=== PATIENT | male | born 1945 | race Caucasian/White ===

== ENCOUNTER → 2017-12-10 07:29 | Outpatient (CLI) | payer MEDICARE, OTHER, SELFPAY ==
--- NOTE | 2017-12-10 07:35 | CDU_ITS ---
Reason For Study: TIA Rt. Velocities/BP Lt. Velocities/BP Prox CCA 95.0/28.7 cm/sec. Prox CCA 77.4/24.0 cm/sec. Mid CCA 110.0/31.7 cm/sec. Mid CCA 86.2/25.2 cm/sec. Dist CCA 118.0/38.7 cm/sec. Dist CCA 89.7/25.2 cm/sec. Prox ICA 88.5/32.8 cm/sec. Prox ICA 63.3/24.6 cm/sec. Mid ICA 92.6/34.6 cm/sec. Mid ICA 68.6/26.4 cm/sec. Dist ICA 93.2/34.6 cm/sec. Dist ICA 66.3/25.6 cm/sec. Rt. ICA/CCA = .85. Lt. ICA/CCA = .80. Prox ECA 120.0/34.0 cm/sec. Prox ECA 84.4/17.0 cm/sec. Rt. Vert. 61.0/18.2 cm/sec. Lt. Vert. 41.2/12.6 cm/sec. Right Extracranial There is intimal thickening but no significant atherosclerotic plaque noted in the right common carotid artery. There is heterogeneous, irregular atherosclerotic plaque noted in the right internal carotid artery. There is intimal thickening but no significant atherosclerotic plaque noted in the right external carotid artery. Antegrade flow is noted in the right vertebral artery. Left Extracranial There is intimal thickening but no significant atherosclerotic plaque noted in the left common carotid artery. There is heterogeneous, irregular atherosclerotic plaque noted in the left internal carotid artery. There is intimal thickening but no significant atherosclerotic plaque noted in the left external carotid artery. Antegrade flow is noted in the left vertebral artery. Procedure Carotid Duplex [id number]. Exam performed in department. Interpretation Summary Mild (<50%) stenosis right extracranial internal carotid. Mild (<50%) stenosis left extracranial internal carotid. Flow within the vertebral arteries is antegrade bilaterally. Ordering Physician: Casper Do Referring Physician: Casper Do Performed By: Maryjane Cummings RVT
== END ==
PROVIDERS: Family Provider Family Medicine; PCP Family Medicine; Visit Provider Family Medicine
DX: H53.123 Transient visual loss, bilateral (principal)
CPT/HCPCS: 93880

== ENCOUNTER → 2018-11-03 14:09 | Outpatient (CLI) | payer MEDICARE, OTHER, SELFPAY ==
[2018-10-16 13:01] VITALS: BMI 23.6
--- NOTE | 2018-11-03 14:12 | CT_ITS ---
STUDY: CT PELVIS WITHOUT CONTRAST REASON FOR EXAM: Male, 73 years old. Hip and lower back pain. RADIATION DOSAGE (If Supplied By Facility): CTDIvol = ( 13.03 ) mGy, DLP = ( 367.70 ) mGycm TECHNIQUE: Transaxial imaging of the pelvis was performed with oral contrast, and without intravenous administration of contrast material. Coronal and sagittal 2-D MPR Individualized dose optimization techniques were used for this CT. COMPARISON: CT lumbar spine same date. MR lumbar spine 08/22/2017. X-ray lumbar spine 12/09/2015. FINDINGS: Body wall soft tissues: No acute process. Osseous structures: Multilevel low lumbar spondylosis, see lumbar spine CT dictation. There is transitional lumbosacral vertebral anatomy. Lumbarization of S1 as counted from the last rib-bearing vertebral body T12. Osteopenia. Right hip os acetabuli, otherwise minimal degenerative features. Left hip os acetabuli, otherwise minimal degenerative features. Bony pelvis intact. Minimal degenerative features of the SI joints. Intrapelvic: Infrarenal abdominal aortic aneurysm measuring up to 3.65 cm. Moderate aortoiliac atherosclerosis. Somewhat prominent stool within the distal large bowel, nonspecific. Mild sigmoid diverticulosis without diverticulitis. Normal appendix. Observed portions of the small bowel are unremarkable. No evidence of mass or lymphadenopathy. Distal ureters, urinary bladder, prostate and seminal vesicles unremarkable. Myotendinous structures: Myotendinous structures of the pelvic girdle are unremarkable. CT/Pelvis without IV Contrast IMPRESSION: Infrarenal abdominal aortic aneurysm 3.6 cm. No acute intrapelvic process is evident. Mild degenerative features of the hip joints. Multilevel lumbar spondylosis. Electronically Signed: Zuhair Toribio MD at 14:46 EST Tel , Service support ,
--- NOTE | 2018-11-03 14:14 | CT_ITS ---
STUDY: CT LUMBAR SPINE WITHOUT CONTRAST REASON FOR EXAM: Male, 73 years old. Hip and lower back pain RADIATION DOSAGE (If Supplied By Facility): CTDIvol = ( 16.10 ) mGy, DLP = ( 407.43 ) mGycm TECHNIQUE: The patient was scanned in a multi detector CT scanner. High resolution transaxial imaging was performed. Sagittal and coronal images were reconstructed. Individualized dose optimization techniques were used for this CT. COMPARISON: MR lumbar spine 08/22/2017, x-ray lumbar spine 12/09/2015 FINDINGS: Limited evaluation of the retroperitoneum reveals no acute process. Infrarenal abdominal aortic aneurysm 3.6 cm, fusiform shape. Moderate aortoiliac atherosclerosis. Psoas and paraspinous muscles normal. Mild dextro scoliosis of the lumbar spine. There is straightening of the expected lumbar lordosis. There is generalized osteopenia. There is transitional lumbosacral vertebral anatomy. As counted from the last rib-bearing vertebral body T12, there is lumbarization of S1. Counted as such, there is mild narrowing of the intervertebral disc at L1-L2. There is severe disc narrowing with vacuum changes and endplate degenerative changes at the remaining levels L2-S1. At each level there is mild posterior disc bulging, posterior lateral disc margin osteophytic lipping, mild to moderate facet hypertrophy, features contributing to mild spinal canal narrowing at L5-S1, mild lateral recess encroachment at all levels, and mild to moderate multilevel foraminal narrowing most notable at L4-L5 and L5-S1 on the right, L4-L5 on the left. No significant change in the appearance of the lumbar spine compared to prior imaging. CT/Spine Lumbar without Contrast IMPRESSION: Prominent multilevel lumbar spondylosis contributing to multilevel foraminal narrowing and mild spinal canal narrowing. Mild scoliosis. Electronically Signed: Zuhair Toribio MD at 14:50 EST Tel , Service support ,
== END ==
PROVIDERS: Family Provider Family Medicine; PCP Family Medicine; Referring Provider Nurse Practitioner Acute Care; Visit Provider Nurse Practitioner Acute Care
DX: M54.5 Low back pain (principal); M25.559 Pain in unspecified hip
CPT/HCPCS: 72131; 72192

== ENCOUNTER → 2018-11-17 09:53 | Outpatient (CLI) | payer MEDICARE, OTHER, SELFPAY ==
[2018-10-16 13:01] VITALS: BMI 23.6
--- NOTE | 2018-11-17 09:56 | US_ITS ---
STUDY: ABDOMINAL ULTRASOUND REASON FOR EXAM: Male, 73 years old. Abdominal aortic aneurysm TECHNIQUE: Transabdominal ultrasound was performed with real-time and static garcia scale imaging. TECHNICAL QUALITY: Limited. Examination limited by bowel gas. COMPARISON: Previous study of 10/09/2016 FINDINGS: Liver: The liver measures 16.3 cm. There is normal echogenicity of the liver. The bile ducts are within normal limits. There is hepatic color flow. The direction of portal flow is hepatopetal. There is no demonstrated mass lesion. Gallbladder: Normal distended gallbladder. The gallbladder wall measures 3 mm. There is a negative sonographic Peralta's sign. There is no pericholecystic fluid. There are no gallstones. Common Bile Duct (C.B.D.): The common bile duct measures 5 mm. Pancreas: The pancreas was obscured by bowel gas. Spleen: Normal size of the spleen. The spleen measures 11.2 x 4.0 x 3.6 cm. Right Kidney: Normal size of the right kidney. The right kidney measures 10.9 x 4.2 x 4.0 cm. Normal renal cortex. The right cortex measures 1.3 cm. There is no demonstrated renal mass or cyst. There is no right hydronephrosis. Left Kidney: Normal size of the left kidney. The left kidney measures 10.4 x 5.1 x 4.9 cm. Normal renal cortex. The left cortex measures 1.4 cm. There is no demonstrated renal mass or cyst. There is no left hydronephrosis. Aorta: There is aneurysmal dilatation of the distal infrarenal abdominal aorta measuring up to 3.1 x 3.6 cm in diameter. This involves an approximately 7.0 cm in length segment of abdominal aorta. Atheromatous plaquing is noted throughout the length of aneurysm. The proximal abdominal aorta measures 2.0 x 2.5 cm in diameter. The mid abdominal aorta measures 2.3 x 2.2 cm in diameter. I.V.C.: The IVC is patent. There is no ascites. US/Abdomen Complete IMPRESSION: 1. Aneurysmal dilatation of an approximately 7.0 cm in length segment of distal infrarenal abdominal aorta, measuring up to 3.1 x 3.6 cm in diameter. This is slightly increased from the previous study. There is atheromatous plaquing throughout the length of aneurysm. 2. The pancreas was obscured by bowel gas. 3. The remainder of the study is unremarkable. Electronically Signed: Maurizio Story MD at 23:57 EST , Service support ,
== END ==
PROVIDERS: Family Provider Family Medicine; PCP Family Medicine; Referring Provider Clinical Nurse Specialist Acute Care; Visit Provider Clinical Nurse Specialist Acute Care
DX: I71.4 Abdominal aortic aneurysm, without rupture (principal)
CPT/HCPCS: 76700

== ENCOUNTER 2019-03-11 12:30 | Outpatient (RCR) | payer MEDICARE, OTHER, SELFPAY ==
[2019-01-08 11:32] VITALS: BMI 23.5
--- NOTE | 2019-02-24 15:53 | HP.PTEVAL_ITS ---
Patient's Visit Information NIKOLAS HANSON is a 73 year old M referred to Physical Therapy by MABLE Colindres with a diagnosis of PD and increase weakness. Date of Evaluation: 02/24/19 Physical Therapist: JIMMY Carpenter - Visit Plan Frequency: 2x /Week Duration: 6 Weeks Plan: 2X/ week for 4-6 weeks for LE strengthening, increasing trunk AROM, Postural exercises, gait mechanics, dual-tasking, balance activities with HEP - Subjective Findings: Dr Do diagnosed him with PF about 2.5 years ago. 2 years ago he was running. He had PD that affected his digestive system and was ok there and 1.5 years ago he had to go to ER with excessive diarherra and was there for 5 days and was on med that wacked him out and he left the hospital and got off the med and he got back to normal. She saw the neurogist recently and they said to go to PT. He lost a lot of weight and that took all his strength away. He can not walk long distances without tiring out. Stairs: he can go up and down recip. Balance: he is more cautious of it. 2 small trips ( both times he was going through a narrow spot). He feels that he is being pulled forward. He is on meds for PD and on Tramadol for pain. He drives. No trouble getting out of bed. He feels that his legs are weak at times. Pt sleeps for 4 hours at a time. He quite smoking 3-4 years ago. Pt wants to walk and maybe even start jogging a little. He wants to be able to travel now that he is retired. - Objective Gait: Walks with decreased heel to toe ( almost no DF), flexed trunk, fw head, rounded shoulders, no trunk rotation and no arm swing. FGA: 15. LE MMT: B hip flexion 4/5, B knee ext 4-/5, B knee flex 4-/5, B hip abd 4+/5, B hip ext 4- /5, Pt is able to walk on toes but struggles to walk on heels. FLexibility: tight gastroc, HS, hip flexors. Posture: sits with rounded shoulders, flexed trunk, fw head. Pt struggled a little with following directions when alternating legs and arms. - Balance Scores Functional Gait Assessment Score: 15 % Disability: 50.0000 - Goals Goal 1:: I HEP Goal Time Frame: 2-4 Weeks Goal 2:: Walk with more upright posture and increased heel to toe gait pattern Goal Time Frame: 4-6 Weeks Goal 3:: Increase LE strength by 1/2 muscle grade ( atime of eval: LE MMT: B hip flexion 4/5, B knee ext 4-/5, B knee flex 4-/5, B hip abd 4+/5, B hip ext 4- /5) - Rehabilitation Potential Rehabilitation Potential: Good - Anticipated Interventions Patient/Client Instruction: Educate patient on: Condition, Plan of Care For the Purpose of:: To improve muscle performance and motor function, To improve ability to perform ADL's, To increase tolerance to activity/condition/position, To improve performance and independence with ADL's, To improve ability of physical actions for home/community/work/leisure, To improve gait and locomotor functions, To increase flexibility/ROM, To improve balance, To improve safety with gait Therapeutic Exercise to Include: Strength training, Endurance training, Balance training, Body mechanics, Postural training, Flexibilty training, Gait and locomotor training, Neuromotor development, Active ROM For the Purpose of:: To improve muscle performance and motor function, To improve ability to perform ADL's, To increase tolerance to activity/condition/position, To improve performance and independence with ADL's, To improve gait and locomotor functions, To increase flexibility/ROM, To improve balance, To improve safety with gait Functional Training to Include: Gait training For the Purpose of:: To improve gait and locomotor functions, To improve safety with gait Thank you for the opportunity to evaluate your patient. For Medicare and Medicare HMO plans, please review the plan of care and approve it. It will need to be FAXED BACK to us at [phone] for Medicare purposes. For Medicare only, by signing this I certify the plan of care. Please let me know if there are questions or concerns regarding this plan of care. Physician Signature: Date:
== END 2019-03-11 19:00 | disposition home or self-care (01) ==
LOC: PT 12:30
PROVIDERS: Family Provider Family Medicine; PCP Family Medicine; Referring Provider Nurse Practitioner Family; Visit Provider Nurse Practitioner Family
DX: G20 Parkinson's disease (principal); R53.1 Weakness
CPT/HCPCS: 97110; 97161

== ENCOUNTER 2019-05-29 12:26 | Outpatient (RCR) | payer MEDICARE, OTHER, SELFPAY ==
[2019-01-08 11:32] VITALS: BMI 23.5
[2019-05-22 14:34] VITALS: BMI 21.9
--- NOTE | 2019-05-29 13:28 | HP.PTEVAL_ITS ---
Patient's Visit Information NIKOLAS HANSON is a 73 year old M referred to Physical Therapy by MABLE Colindres with a diagnosis of Falls, Parkinson's Disease. Date of Evaluation: 05/29/19 Physical Therapist: JIMMY Carpenter - Visit Plan Frequency: 2-3x /Week Duration: 4-6 Weeks Plan: 2-3X/ week for 4-6 weeks for core stability, trunk rotation stretching, balance activities ( dual tasking), LE strengthening, with HEP - Subjective Findings: Pt reports that he had one trip and he fell backwards and hit his head and it did not hurt. He reports another fall a ways back when he hurt his head but no stitiches needed. In process of changing his meds to increase his Sinement. He having a little more shapiness and having a hard time straightening his hands back out. The Dr is getting concerend that he is regressing. He reports no leg weakness. He reports some postural issues. He has a hard time getting his R leg up into bed. Stairs at home with a railing. He has a lift chair at home but he practices getting out of a regular chair all the time. He has pain that he takes tramadol for for pain in his neck and shoulders. PT reports tightness in his back that causes his posture to be wrong . - Objective Gait: Short strides, decreased arm swing on the R, scuffs feet on the floor, at times decrease DF. LE MMT: B hip abd 4/5, B knee flex 4-/5 and B knee ext 4-/5, B hip flex 4-/5. Tight gastroc, trunk rotation B. FGA: 18. CATSIB: 120. Pt had some poor motor planning when asked to step bw off the foam... wanted to drag his feet along the foam to get it off the foam. Sit to stand: able to stand without using his UE's but does have some retro LOB into the chair at times. TU.99 seconds - Balance Scores Functional Gait Assessment Score: 18 % Disability: 40.0000 CATSIB Score (Max score 120 seconds): 120 - Goals Goal 1:: I HEP Goal Time Frame: 4-6 Weeks Goal 2:: Increase FGA score by 3 points to decrease fall risk ( at time of eval score was 18). Goal Time Frame: 4-6 Weeks Goal 3:: Increase LE strength by 1/2 muscle grade ( at time of eval : LE MMT: B hip abd 4/5, B knee flex 4-/5 and B knee ext 4-/5, B hip flex 4-/5) Goal Time Frame: 4-6 Weeks Goal 4:: be able to sit to stand X 10 attempts in a row with no UE support and no retro LOB Goal Time Frame: 4-6 Weeks - Rehabilitation Potential Rehabilitation Potential: Good - Anticipated Interventions Patient/Client Instruction: Educate patient on: Condition, Plan of Care For the Purpose of:: To improve muscle performance and motor function, To improve ability to perform ADL's, To increase tolerance to activity/condition/position, To improve performance and independence with ADL's, To improve ability of physical actions for home/community/work/leisure, To improve gait and locomotor functions, To improve health of tissue, To increase flexibility/ROM Therapeutic Exercise to Include: Strength training, Balance training, Coordination, Body mechanics, Flexibilty training, Gait and locomotor training, Neuromotor development, Active ROM, Dynamic Lumbar Stabilization For the Purpose of:: To improve muscle performance and motor function, To improve ability to perform ADL's, To increase tolerance to activity/condition/position, To improve performance and independence with ADL's, To decrease level of supervision to perform tasks, To improve ability of physical actions for home/community/work/leisure, To improve gait and locomotor functions, To increase flexibility/ROM, To improve endurance, To improve balance, To improve safety with gait Functional Training to Include: Gait training For the Purpose of:: To improve gait and locomotor functions, To improve safety with gait Thank you for the opportunity to evaluate your patient. For Medicare and Medicare HMO plans, please review the plan of care and approve it. It will need to be FAXED BACK to us at [phone] for Medicare purposes. For Medicare only, by signing this I certify the plan of care. Please let me know if there are questions or concerns regarding this plan of care. Physician Signature: Date:
--- NOTE | 2019-06-16 13:50 | HP.PT.NRP ---
HP - Discharge Summary (1) - Patient Information NIKOLAS HANSON was seen in my office for initial evaluation on 05/29/19. The following Plan of Care was established for this patient: Initial Frequency: 2-3x /Week Initial Duration: 4-6 Weeks - Anticipated Interventions Patient/Client Instruction: Educate patient on: Condition, Plan of Care For the Purpose of:: To improve muscle performance and motor function, To improve ability to perform ADL's, To increase tolerance to activity/condition/position, To improve performance and independence with ADL's, To improve ability of physical actions for home/community/work/leisure, To improve gait and locomotor functions, To improve health of tissue, To increase flexibility/ROM Therapeutic Exercise to Include: Strength training, Balance training, Coordination, Body mechanics, Flexibilty training, Gait and locomotor training, Neuromotor development, Active ROM, Dynamic Lumbar Stabilization For the Purpose of:: To improve muscle performance and motor function, To improve ability to perform ADL's, To increase tolerance to activity/condition/position, To improve performance and independence with ADL's, To decrease level of supervision to perform tasks, To improve ability of physical actions for home/community/work/leisure, To improve gait and locomotor functions, To increase flexibility/ROM, To improve endurance, To improve balance, To improve safety with gait Functional Training to Include: Gait training For the Purpose of:: To improve gait and locomotor functions, To improve safety with gait This patient was last seen in our office 05/29/19. Pertinent comments regarding their Physical therapy will appear below: DC PT as pt has other health issues going on. At this point I will be discontinuing this patient from physical therapy. I would be happy to see this patient again in the future if found appropriate by the physician. Thank you! Tiffany Howe, MPT
== END 2019-05-29 19:00 | disposition home or self-care (01) ==
LOC: PT 12:26
PROVIDERS: Family Provider Family Medicine; PCP Family Medicine; Referring Provider Nurse Practitioner Family; Visit Provider Nurse Practitioner Family
DX: R29.6 Repeated falls (principal); G20 Parkinson's disease
CPT/HCPCS: 97161

== ENCOUNTER 2019-06-06 17:58 | Emergency (ER) | payer MEDICARE, OTHER, SELFPAY ==
[2019-05-22 14:34] VITALS: BMI 21.9
[2019-06-06 17:58] VITALS: BP 124/86; PULSE 95; RESP 18; TEMP 36.5; O2SAT 96; BMI 20.5
--- NOTE | 2019-06-06 18:17 | CT_ITS ---
STUDY: CT BRAIN WITHOUT CONTRAST REASON FOR EXAM: Male, 73 years old. Hallucinations RADIATION DOSAGE (If Supplied By Facility): CTDIvol = ( 44.99 ) mGy, DLP = ( 812.98 ) mGycm TECHNIQUE: Transaxial CT imaging of the brain was performed without administration of intravenous contrast material. Individualized dose optimization techniques were used for this CT. COMPARISON: 26 April 2017 FINDINGS: Brain parenchyma is without focal lesions, mass effect, acute intracranial hemorrhage, extra parenchymal fluid collections, hydrocephalus or herniation. The skull is intact. CT/Brain/Head without Contrast IMPRESSION: 1. Normal CT brain. Electronically Signed: Ramonita Cheema, at 18:41 EDT Tel , Service support ,
--- NOTE | 2019-06-06 18:18 | ED.DCSUM_ITS ---
History of Present Illness Chief Complaint: General Illness Detail of Chief Complaint: Visual hallucinations Informant: Patient, Family Onset: Today Current Severity: Mild Maximum Severity: Mild Narrative: Patient presents with secondary to visual hallucinations. Patient has a history of Parkinson's disease. He reportedly walked to his daughter's house stating that he was unable to wake up his . When the daughter went to the home to check the was not there. Patient also thought that there was an [employer] man at the home when there was no one there. states that he had similar symptoms in the past when he was on Lyrica. Only recent medication change was an increase in his dose of Sinemet. Patient denies headache, vision change, or chest pain. He has mild bilateral hip pain which is chronic and unchanged from baseline. No recent fall or injury. - Past Medical History (1) Raynauds disease Status: Chronic (2) Abdominal aortic aneurysm Status: Chronic (3) Atherosclerotic heart disease of [place] coronary artery without angina pectoris Status: Chronic Comment: 50% LAD stenosis based on heart cath 2011 (4) IBS (irritable bowel syndrome) Status: Chronic (5) Parkinson's disease Status: Chronic (6) Frequent falls Status: Acute (7) Anxiety Status: Chronic (8) COLD (chronic obstructive lung disease) Status: Chronic Past Medical History - Allergies and Home Meds Allergies/Adverse Reactions: Allergies pregabalin [From Lyrica] Adverse Reaction (Severe, Verified 06/06/19 17:58) hallucinations Primary Care Physician: Casper Do DO [Primary Care Provider] - Prior records reviewed: Yes Past Medical History: - - Reviewed Surgical History: noncontributory Lives: Spouse/ Significant Other Smoking Status: Former smoker - Family History Maternal Family History: Family History (Last Reviewed 05/22/19 @ 14:34 by Ariana Rosen) Brother Alcoholism Father Heart disease Myocardial infarction Uncle Heart disease Myocardial infarction Grandfather Heart disease Myocardial infarction Family History: Reports: No pertinent history Paternal Family History: Family History (Last Reviewed 05/22/19 @ 14:34 by Ariana Rosen) Brother Alcoholism Father Heart disease Myocardial infarction Uncle Heart disease Myocardial infarction Grandfather Heart disease Myocardial infarction Family History: Reports: No pertinent history Review of Systems General: Denies: Chills, Fever Eyes: Denies: Visual changes - bilaterally ENT: Denies: Bilateral ear pain Cardiovascular: Denies: Chest pain, Palpitations, Heart racing Respiratory: Denies: Dyspnea, Cough Gastrointestinal: Denies: Abdominal pain, Nausea, Vomiting Musculoskeletal: Reports: Extremity Pain - Chronic bilateral hip pain. Denies: Neck pain, Back pain Skin: Denies: Rash, Wounds Neurological: Denies: Headache Hematologic: Denies: Easy bruising Allergy: Denies: Uticaria Physical Exam Vital Signs/Narrative: Vital Signs Temp Pulse Resp BP Pulse Ox 06/06/19 17:58 97.7 F L 95 18 124/86 H 96 Inital Vital Signs reviewed: Yes General: Well nourished, Well developed Head: Normocephalic ENT: Moist mucous membranes Neck: Supple Cardiovascular: Regular rate, Regular rhythm Respiratory: No distress, CTA bilaterally Abdomen: Soft, Nontender Extremities: Nontender, No edema Skin: Normal color, No rash Neurological: Alert, Oriented x3, - - No focal deficits Psychological: Normal affect Diagnostic/Tx/Re-eval Impressions Brain CT 06/06/19 18:17 IMPRESSION: 1. Normal CT brain. Electronically Signed: Jessyjusta Anette, at 18:41 EDT Tel , Service support , 06/06/19 18:17 Brain/Head without Contrast [CT] Stat Laboratory Results 06/06/19 06/06/19 06/06/19 18:10 18:10 18:55 WBC 8.1 RBC 4.54 L Hgb 14.3 Hct 42.2 MCV 93.0 MCH 31.5 MCHC 33.9 RDW Std Deviation 42.0 RDW Coeff of Boni 12.3 Plt Count 211 MPV 10.8 Immature Gran % (Auto) 0.900 Neut % (Auto) 54.7 Lymph % (Auto) 29.7 Runnels % (Auto) 9.1 Eos % (Auto) 4.9 Baso % (Auto) 0.7 Absolute Neuts (auto) 4.5 Absolute Lymphs (auto) 2.42 Nucleated RBC % 0 Sodium 139 Potassium 4.1 Chloride 106 Carbon Dioxide 29.0 Anion Gap 4 L BUN 22 H Creatinine 1.13 Estim Creat Clear Calc 54.08 Est GFR (MDRD) Af Amer 82 Est GFR (MDRD) Non-Af 68 BUN/Creatinine Ratio 19.5 Glucose 107 H Calcium 9.0 Urine Color Yellow Urine Clarity Clear Urine pH 7.0 Ur Specific [place] 1.015 Urine Protein 15 H Urine Glucose (UA) Normal Urine Ketones Negative Urine Occult Blood 25 H Urine Nitrite Negative Urine Bilirubin Negative Urine Urobilinogen Normal Ur Leukocyte Esterase Negative - Medical Decision Making Patient has remained a symptomatically while here. I suspect his reported hallucinations are secondary to the increased dose of Sinemet. I asked him to go back to his previous scheduling, 1 tab of Sinemet 25/100 3 times daily and 1 tab of Sinemet 50/200 at bedtime. I attempted to call his neurologist. Multiple pages were sent with no return call. ED Disposition - Plan for ED Patient: Disposition: Home or Assisted Living Diagnosis: Hallucinations Referrals: Casper Do DO [Primary Care Provider] -
[2019-06-06 18:27] LABS: Absolute Lymphocyte Count 2.42 X10^3/uL (0.83-4.51); Absolute Neutrophil Count 4.5 X10^3/uL (2.0-7.7); Basophil# 0.06 X10^3/uL; Basophil% 0.7 % (0-1); Eosinophils% 4.9 % (0-5); Hematocrit 42.2 % (40-54); Hemoglobin 14.3 g/dL (13.0-16.5); Lymphocyte # 2.42 X10^3/ul (4.0); Lymphocyte % 29.7 % (19-41); Mean Corp Hgb Conc 33.9 g/dL (32-36); Mean Corpuscular Hgb 31.5 pg (27.0-32.0); Mean Platelet Vol. 10.8 fl (6.2-12.0); Monocyte# 0.74 X10^3/uL; Monocyte% 9.1 % (0-10); NRBC Flagged by Analyzer 0 % (0-5); Neutrophil # 4.45 X10^3/uL (2.7-7.7); Neutrophil % 54.7 % (47-70); Platelet Count 211 K/mm3 (150-450); RBC Distribution Width CV 12.3 % (11.6-14.6); Red Blood Count 4.54 M/mm3 (4.6-6.2); White Blood Count 8.1 K/mm3 (4.4-11.0)
[2019-06-06 18:35] LABS: Anion Gap 4 (5-15); BUN 22 mg/dL (7-18); BUN/Creat Ratio 19.5 RATIO (10-20); Chloride 106 mmol/L (98-107); Creatinine, Serum 1.13 mg/dL (0.70-1.30); EST Glomerular Filtration Rate 68 mL/min (>60); Est Glom Filt Rate - Afr Amer 82 mL/min (>60); Estimated Creatinine Clearance 54.08 ml/min; Glucose 107 mg/dL (74-106); Potassium 4.1 mmol/L (3.5-5.1); Sodium Level 139 mmol/L (136-145)
[2019-06-06 19:04] LABS: Color, Urine Yellow (Yellow); Glucose, Dipstick Normal (Normal); Ketone-Dipstick Negative (Negative); Leukocyte Esterase-Dipstick Negative /ul (Negative); Nitrite-Dipstick Negative (Negative); Occult Blood-Urine 25 /ul (Negative); Protein-Dipstick 15 mg/dl (Negative); Specific Gravity, Urine 1.015 (1.002-1.030); Urine Bilirubin Dipstick Negative (Negative); Urine Clarity Clear (Clear); Urine Urobilinogen Normal (Normal)
[2019-06-06 20:57] VITALS: RESP 16
== END 2019-06-06 20:58 | disposition home or self-care (01) ==
LOC: ED 18:23
PROVIDERS: Emergency Provider Emergency Medicine; Family Provider Family Medicine; PCP Family Medicine
DX: R44.3 Hallucinations, unspecified (principal); F41.9 Anxiety disorder, unspecified; G20 Parkinson's disease; I25.10 Atherosclerotic heart disease of native coronary artery without angina pectoris; I71.4 Abdominal aortic aneurysm, without rupture; I73.00 Raynaud's syndrome without gangrene; J44.9 Chronic obstructive pulmonary disease, unspecified; K58.9 Irritable bowel syndrome, unspecified; Z82.49 Family history of ischemic heart disease and other diseases of the circulatory system; Z87.891 Personal history of nicotine dependence
CPT/HCPCS: 70450; 80048; 81002; 85025; 99283; A4216

== ENCOUNTER 2019-06-09 05:46 | Emergency (ER) | payer MEDICARE, OTHER, SELFPAY ==
[2019-06-09 05:47] VITALS: BP 146/108; PULSE 104; RESP 22; TEMP 36.6; O2SAT 96; BMI 20.2
[2019-06-09 05:56] LABS: Bedside Glucose 113 mg/dL (70-110)
--- NOTE | 2019-06-09 06:07 | ED.VIS.GEN ---
History of Present Illness Chief Complaint: Confusion Informant: Patient, Family Narrative: Here with his . She states he has persistent hallucinations. He was seen here on June 06 with hallucinations. The only change to his medication was a month ago they increased his Sinemet. stated that last night his hallucinations were even worse than they were before. Patient stated he does not know why they are happening. That would be his only new medication change. He had lab work and a CAT scan that showed no significant abnormalities including urine test that showed no infection. Patient's been eating and drinking okay. wanted to make sure he was okay. Current severity is mild. - Past Medical History (1) Fecal incontinence Status: Acute (2) Frequent falls Status: Acute (3) Generalized weakness Status: Acute (4) Urine incontinence Status: Acute (5) Abdominal aortic aneurysm Status: Chronic (6) Abnormal electrocardiogram Status: Chronic (7) Anxiety Status: Chronic (8) Atherosclerotic heart disease of [place] coronary artery without angina pectoris Status: Chronic Comment: 50% LAD stenosis based on heart cath 2011 (9) COLD (chronic obstructive lung disease) Status: Chronic (10) Cervicalgia Status: Chronic (11) Herniation of nucleus pulposus Status: Chronic (12) IBS (irritable bowel syndrome) Status: Chronic (13) Parkinson's disease Status: Chronic (14) Raynauds disease Status: Chronic (15) Tobacco user Status: Chronic Past Medical History - Allergies and Home Meds Allergies/Adverse Reactions: Allergies pregabalin [From Lyrica] Adverse Reaction (Severe, Verified 06/06/19 17:58) hallucinations Primary Care Physician: Casper Do DO [Primary Care Provider] - Prior records reviewed: Yes Past Medical History: - - See problem list Surgical History: noncontributory Smoking Status: Former smoker Alcohol: None Drugs: None - Family History Maternal Family History: Family History (Last Reviewed 05/22/19 @ 14:34 by Ariana Rosen) Brother Alcoholism Father Heart disease Myocardial infarction Uncle Heart disease Myocardial infarction Grandfather Heart disease Myocardial infarction Family History: Reports: No pertinent history Paternal Family History: Family History (Last Reviewed 05/22/19 @ 14:34 by Ariana Rosen) Brother Alcoholism Father Heart disease Myocardial infarction Uncle Heart disease Myocardial infarction Grandfather Heart disease Myocardial infarction Family History: Reports: No pertinent history Review of Systems General: Denies: Chills, Fever, Sweats Eyes: Denies: Visual changes - bilaterally, Diplopia ENT: Denies: Rhinorrhea, Sore throat Cardiovascular: Denies: Chest pain, Palpitations Respiratory: Denies: Dyspnea, Cough, Dyspnea on exertion Gastrointestinal: Denies: Abdominal pain, Nausea, Vomiting, Diarrhea, Melena, Hematochezia Genitourinary: Denies: Dysuria, Hematuria, Frequency Musculoskeletal: Denies: Back pain, Extremity Pain Skin: Denies: Rash, Wounds Neurological: Reports: - - see HPI. Denies: Headache, Weakness, Numbness Physical Exam Vital Signs/Narrative: Vital Signs Temp Pulse Resp BP Pulse Ox 06/09/19 05:47 97.8 F 104 H 22 H 146/108 H 96 General: Well nourished, Well developed, No Acute Distress Head: Normocephalic, Atraumatic Eyes: Perrl, EOMI ENT: Moist mucous membranes, No rhinorrhea Neck: Supple, Nontender Cardiovascular: Regular rate, Regular rhythm, No murmurs Respiratory: No distress, CTA bilaterally, Chest nontender Abdomen: Soft, Nontender, Nondistended, Normal bowel sounds Back: Nontender, Normal Inspection Extremities: Nontender, No edema Skin: Normal color, No rash Neurological: Alert, Oriented x3, Cranial nerves II-XII grossly intact, Normal Strength, Normal Sensation, - - She does not appear to have any acute hallucinations currently. He is following all commands. Psychological: Normal affect, Normal Mood Diagnostic/Tx/Re-eval - Medical Decision Making She is having some intermittent hallucinations. He is able to be redirected. He understands that he has a neurology appointment in 2 days. I suspect that this is secondary to his medication. His will continue to monitor him and give him his medicine. It likely will need to take more time to come down. I do not feel he needs repeat lab work or imaging ED Disposition - Plan for ED Patient: Disposition: Home or Assisted Living Diagnosis: Hallucinations Instructions: Confusion Referrals: Casper Do DO [Primary Care Provider] -
[2019-06-09 06:38] VITALS: BP 138/88; PULSE 94; RESP 16; O2SAT 97
== END 2019-06-09 06:59 | disposition home or self-care (01) ==
LOC: ED 06:15
PROVIDERS: Emergency Provider Emergency Medicine; Family Provider Family Medicine; PCP Family Medicine
DX: R44.3 Hallucinations, unspecified (principal); F41.9 Anxiety disorder, unspecified; G20 Parkinson's disease; I25.10 Atherosclerotic heart disease of native coronary artery without angina pectoris; I71.4 Abdominal aortic aneurysm, without rupture; I73.00 Raynaud's syndrome without gangrene; J44.9 Chronic obstructive pulmonary disease, unspecified; K58.9 Irritable bowel syndrome, unspecified; Z82.49 Family history of ischemic heart disease and other diseases of the circulatory system; Z87.891 Personal history of nicotine dependence
CPT/HCPCS: 82962; 99282

== ENCOUNTER 2020-01-11 10:23 | Emergency (ER) | payer MEDICARE, OTHER, SELFPAY ==
[2019-11-11 13:45] VITALS: BMI 20.2
[2020-01-11 10:24] VITALS: BP 151/100; PULSE 102; RESP 16; TEMP 37.1; O2SAT 98; BMI 19.9
--- NOTE | 2020-01-11 10:33 | ED.VIS.GEN ---
History of Present Illness Chief Complaint: Constipation Informant: Patient Onset: Days Context: Gradual Onset Timing: Intermittent Current Severity: Moderate Maximum Severity: Moderate Narrative: The patient is a 74-year-old male with medical history significant for Parkinson's who presents to the emergency department constipation. The patient states for the past 2 or 3 days, he has had difficulty moving his bowels. He denies any pain. He denies any nausea or vomiting. He states he is otherwise been in his normal state of health. He states that today, he was straining to move his bowels, but was actually able to have a bowel movement. He is on Parkinson's medication and pain medication. He states he does not take stool softeners. He denies any fever, chills, or other systemic symptoms. Prior similar symptoms: No Recent Illness/Hospitalization: No Past Medical History - Allergies and Home Meds Allergies/Adverse Reactions: Allergies pregabalin [From Lyrica] Adverse Reaction (Severe, Verified 01/11/20 10:24) hallucinations Primary Care Physician: Casper Do DO [Primary Care Provider] - Prior records reviewed: Yes Past Medical History: - - Parkinson's disease Surgical History: noncontributory Smoking Status: Former smoker - Family History Maternal Family History: Family History (Last Reviewed 11/11/19 @ 13:[address] Casper Do DO) Brother Alcoholism Father Heart disease Myocardial infarction Uncle Heart disease Myocardial infarction Grandfather Heart disease Myocardial infarction Family History: Reports: No pertinent history Paternal Family History: Family History (Last Reviewed 11/11/19 @ 13:[address] Casper Do DO) Brother Alcoholism Father Heart disease Myocardial infarction Uncle Heart disease Myocardial infarction Grandfather Heart disease Myocardial infarction Family History: Reports: No pertinent history Review of Systems General: Denies: Chills, Fever, Sweats Eyes: Denies: Visual changes - bilaterally, Diplopia ENT: Denies: Rhinorrhea, Sore throat Cardiovascular: Denies: Chest pain, Palpitations Respiratory: Denies: Dyspnea, Cough, Dyspnea on exertion Gastrointestinal: Reports: Constipation. Denies: Abdominal pain, Nausea, Vomiting, Diarrhea, Melena, Hematochezia Genitourinary: Denies: Dysuria, Hematuria, Frequency Musculoskeletal: Denies: Back pain, Extremity Pain Skin: Denies: Rash, Wounds Neurological: Denies: Headache, Weakness, Numbness Physical Exam Vital Signs/Narrative: Vital Signs Temp Pulse Resp BP Pulse Ox 01/11/20 10:24 98.7 F 102 H 16 151/100 H 98 Inital Vital Signs reviewed: Yes General: Well nourished, Well developed, No Acute Distress Head: Normocephalic, Atraumatic Eyes: Perrl, EOMI ENT: Moist mucous membranes, No rhinorrhea Neck: Supple, Nontender Cardiovascular: Regular rate, Regular rhythm, No murmurs Respiratory: No distress, CTA bilaterally, Chest nontender Abdomen: Soft, Nontender, Nondistended, Normal bowel sounds Back: Nontender, Normal Inspection Extremities: Nontender, No edema Skin: Normal color, No rash Neurological: Alert, Oriented x3, Cranial nerves II-XII grossly intact, Normal Strength, Normal Sensation Psychological: Normal affect, Normal Mood Diagnostic/Tx/Re-eval Clinical Impression(s) from Imaging Studies K[facility] X-Ray 01/11/20 10:36 IMPRESSION: Large amount of fecal material is seen in the colon. Electronically Signed: Mohan Villagran, at 11:01 EDT , Service support , - Medical Decision Making The patient presents with constipation. He is on tramadol but does not take any stool softeners. He states he had a bowel movement this morning. His abdomen is soft and nontender. Plain films show no evidence of obstruction or perforation. There is a large amount of stool burden. The patient was ordered an enema. The tube would kink and there was no stool output. He did have a bowel movement prior to arrival. Rectal exam was done. There was no evidence of impaction or abnormality. At this point, I am going to treat the patient with magnesium citrate. I do for that he is safe for outpatient therapy. Impression 1. Constipation ED Disposition - Plan for ED Patient: Instructions: ED Constipation Prescriptions: Polyethylene Glycol 3350 [Miralax] 17 gm PO DAILY #7 packet Prescription Printed Referrals: Casper Do DO [Primary Care Provider] -
--- NOTE | 2020-01-11 10:36 | RAD_ITS ---
STUDY: X-RAY - ABDOMEN/PELVIS REASON FOR EXAM: Male, 74 years old. ABDOMINAL PAIN, CONSTIPATION TECHNIQUE: Single AP view of the abdomen / pelvis. COMPARISON: None. FINDINGS: Normal visualized lung bases. There is an abundance of fecal material throughout the colon. The visualized liver, spleen and kidneys are grossly normal in size and morphology. Normal soft tissue structures. There are diffuse degenerative changes of the visualized lumbar spine. Mild dextroscoliosis. RAD/Abdomen Single View IMPRESSION: Large amount of fecal material is seen in the colon. Electronically Signed: Mohan Villagran, at 11:01 EDT , Service support ,
[2020-01-11] MEDS: Magnesium Citrate 300 ML PO (12:52)
== END 2020-01-11 12:53 | disposition home or self-care (01) ==
LOC: ED 12:08
PROVIDERS: Emergency Provider Emergency Medicine; PCP Family Medicine
DX: K59.00 Constipation, unspecified (principal); G20 Parkinson's disease; Z82.49 Family history of ischemic heart disease and other diseases of the circulatory system; Z87.891 Personal history of nicotine dependence
CPT/HCPCS: 74018; 99284

== ENCOUNTER → 2020-02-16 07:09 | Outpatient (CLI) | payer MEDICARE, OTHER, SELFPAY ==
[2020-02-10 16:11] VITALS: BMI 19.9
--- NOTE | 2020-02-16 07:10 | RAD_ITS ---
STUDY: X-RAY CHEST REASON FOR EXAM: Male, 74 years old. Dyspnea TECHNIQUE: PA and lateral views of the chest. COMPARISON: Comparison is made with prior examination dated September 04, 2012. FINDINGS: Hyperinflation. Increased bronchovascular markings in both lungs suggestive of emphysematous changes. There is no demonstrated pleural abnormality. Normal size heart. Normal mediastinum and deyanira. There is prominence of the pulmonary hilar arteries without peripheral pulmonary vascular congestion, suggesting pulmonary hypertension. There is atherosclerotic calcification of the aortic arch with tortuosity. There are mild degenerative changes of the visualized thoracic spine. Mild levoscoliosis. Normal visualized ribs, clavicles, and shoulders. There is no demonstrated abnormality of the visualized soft tissue structures of the upper abdomen. RAD/Chest PA and Lateral IMPRESSION: Hyperinflation. No acute abnormality is seen. Electronically Signed: Mohan Villagran, at 8:32 EDT , Service support ,
--- NOTE | 2020-02-16 16:16 | PFTCOMP ---
COMPLETE PULMONARY FUNCTION TEST INTERPRETATION Brief HPI: Patient is a 74 year old male, currently under the care of Dr. Do, who presents to [facility] for complete pulmonary function tests secondary to diagnosis of dyspnea. Respiratory therapist reports good effort and reproducible results. Interpretation: Forced expiration spirometry shows a moderately severe large airways obstructive ventilatory defect with an FEV1 of 52% predicted. There is no significant bronchodilator response by strict ATS criteria. Spirograms are of good quality and plateau slowly, indicating slowly emptying areas of the lungs. The respiratory flow volume loop shows decreased expiratory flow rates at all lung volumes consistent with airway obstruction. Lung volumes by body plethysmography show an elevated total lung capacity at 7.82 L, 126% predicted. FRC and RV are elevated out of proportion. Lung volume measurements are consistent with hyperinflation and air-trapping. Diffusion capacity by carbon monoxide is decreased at 61% predicted. The airway resistance is elevated. Compared to previous pulmonary function tests from 09/05/2012, there was a significant decrease in FVC, FEV1 and DLCO by 35%, 37% and 42% respectively. Impression: Irreversible moderately severe obstructive ventilatory defect with a symmetric reduction in diffusing capacity, resulting in air trapping with hyperinflation, and significant worsening compared to 2012, and a pattern consistent with advanced COPD.
== END ==
PROVIDERS: PCP Family Medicine; Referring Provider Family Medicine; Visit Provider Family Medicine
DX: R06.00 Dyspnea, unspecified (principal)
CPT/HCPCS: 71046; 94060; 94726; 94729

== ENCOUNTER 2020-02-25 06:19 | Emergency (ER) | payer MEDICARE, OTHER, SELFPAY ==
[2020-02-10 16:11] VITALS: BMI 19.9
[2020-02-25 06:21] VITALS: BP 149/86; PULSE 87; RESP 18; TEMP 36.6; O2SAT 96; BMI 19.8
--- NOTE | 2020-02-25 06:42 | EKG12_ITS ---
Test Reason : SOB Blood Pressure : / mmHG Vent. Rate : 079 BPM Atrial Rate : 079 BPM P-R Int : 168 ms QRS Dur : 068 ms QT Int : 366 ms P-R-T Axes : -27 -63 -31 degrees QTc Int : 419 ms Normal sinus rhythm Left axis deviation Inferior infarct , age undetermined Abnormal ECG Confirmed by BUFFY SKINNER, JAIDEN ([id number]), proposal editor KJ REYES ([id number]) on 03/01/2020 2:57:17 PM Referred By: SIMIN Confirmed By:JAIDEN BAER MD
--- NOTE | 2020-02-25 06:43 | ED.VIS.GEN ---
History of Present Illness Chief Complaint: Shortness of Breath Detail of Chief Complaint: sob, falls Informant: Patient, Family Narrative: Patient speaks quickly and has to force himself to slow down, history initially is fairly limited. After talking with the patient for 15 minutes, and trying to decipher why he came to the emergency department this morning, it seems that he is chronically short of breath, his told us that he was here because of that but he denies it being any different than usual. He has had frequent falls because of his Parkinson's disease. He takes medications for that, including Sinemet. His last fall was this morning. He did not injure himself. However, it was very difficult for him to get up and his was having trouble helping him, and it seems that is what prompted the emergency department visit. He points to some bruises on both upper extremities, does not appear that any of those happen today, he states that the fall occurred when he was on his way from the bathroom back to his bed. He did not hit his head. He states he simply collapsed to the floor. He states he has some issues with speaking that have been present and unchanged for about 3 years. It is not a aphasia. He is able to talk, but initially talks very quickly to the point where it is difficult for people to understand him, so he forces himself to slow down, and then he is able to be understood. - Past Medical History (1) Frequent falls Status: Chronic (2) Abdominal aortic aneurysm Status: Chronic (3) Anxiety Status: Chronic (4) Atherosclerotic heart disease of [place] coronary artery without angina pectoris Status: Chronic Comment: 50% LAD stenosis based on heart cath 2011 (5) COLD (chronic obstructive lung disease) Status: Chronic (6) Herniation of nucleus pulposus Status: Chronic (7) IBS (irritable bowel syndrome) Status: Chronic (8) Parkinson's disease Status: Chronic (9) Raynauds disease Status: Chronic (10) Scoliosis deformity of spine Status: Chronic Past Medical History - Allergies and Home Meds Allergies/Adverse Reactions: Allergies pregabalin [From Lyrica] Adverse Reaction (Severe, Verified 02/25/20 06:31) hallucinations Primary Care Physician: Casper Do DO [Primary Care Provider] - Lives: Spouse/ Significant Other Smoking Status: Former smoker - Family History Maternal Family History: Family History (Last Reviewed 11/11/19 @ 13:[address] Casper Do DO) Brother Alcoholism Father Heart disease Myocardial infarction Uncle Heart disease Myocardial infarction Grandfather Heart disease Myocardial infarction Family History: Reports: No pertinent history Paternal Family History: Family History (Last Reviewed 11/11/19 @ 13:[address] Casper Do DO) Brother Alcoholism Father Heart disease Myocardial infarction Uncle Heart disease Myocardial infarction Grandfather Heart disease Myocardial infarction Family History: Reports: No pertinent history Review of Systems General: Denies: Chills, Fever, Sweats Eyes: Denies: Visual changes - bilaterally, Diplopia ENT: Denies: Bilateral ear pain, Rhinorrhea, Sore throat Cardiovascular: Denies: Chest pain, Palpitations Respiratory: Reports: Dyspnea - chronic, unchanged, Dyspnea on exertion. Denies: Cough, Orthopnea Gastrointestinal: Denies: Abdominal pain, Nausea, Vomiting, Diarrhea, Melena, Hematochezia Genitourinary: Denies: Dysuria, Hematuria, Frequency Musculoskeletal: Reports: Back pain - low, chronic, unchanged. Denies: Neck pain, Extremity Pain Skin: Reports: Wounds - bruises both arms. Denies: Rash Neurological: Denies: Headache, Weakness, Numbness Hematologic: Reports: Easy bruising Physical Exam Vital Signs/Narrative: Vital Signs Temp Pulse Resp BP Pulse Ox 02/25/20 06:21 97.8 F 87 18 149/86 H 96 Inital Vital Signs reviewed: Yes General: Well nourished, Well developed, Cachectic, No Acute Distress Head: Normocephalic, Atraumatic Eyes: Perrl, EOMI ENT: Moist mucous membranes, No rhinorrhea, TM's clear - no HT Neck: Supple, Nontender, No lymphadenopathy, No JVD Cardiovascular: Regular rate, Regular rhythm, No murmurs Respiratory: No distress, CTA bilaterally, Chest nontender, Diminished - throughout, symmetrically Abdomen: Soft, Nontender, Nondistended, Normal bowel sounds Back: Nontender - and able to sit up without assistance, Normal Inspection. Negative for: CVA tenderness Extremities: Nontender - no bony tenderness x all 4 ext's, No edema Skin: Normal color, No rash, Trauma - old ecchymoses bilat forearms Neurological: Alert, Oriented x3, Cranial nerves II-XII grossly intact, Normal Strength, Normal Sensation, - - +rigidity Psychological: Normal affect, Normal Mood Diagnostic/Tx/Re-eval Laboratory Tests 02/25/20 02/25/20 Range/Units 06:45 06:45 WBC 7.5 (4.4-11.0) K/mm3 RBC 4.22 L (4.6-6.2) M/mm3 Hgb 13.3 (13.0-16.5) g/dL Hct 39.1 L (40-54) % MCV 92.7 (80-94) fL MCH 31.5 (27.0-32.0) pg MCHC 34.0 (32-36) g/dL RDW Std Deviation 43.3 (35.1-43.9) fl RDW Coeff of [place] 12.9 (11.6-14.6) % Plt Count 223 (150-450) K/mm3 MPV 10.5 (6.2-12.0) fl Immature Gran % (Auto) 1.100 H (0.0-0.9) % Neut % (Auto) 66.7 (47-70) % Lymph % (Auto) 18.1 L (19-41) % [place] % (Auto) 8.4 (0-10) % Eos % (Auto) 5.0 (0-5) % Baso % (Auto) 0.7 (0-1) % Absolute Neuts (auto) 5.0 (2.0-7.7) X10^3/uL Absolute Lymphs (auto) 1.35 (0.83-4.51) X10^3/uL Nucleated RBC % 0 (0-5) % Sodium 142 (136-145) mmol/L Potassium 3.8 (3.5-5.1) mmol/L Chloride 111 H (98-107) mmol/L Carbon Dioxide 28.0 (21.0-32.0) mmol/L Anion Gap 3 L (5-15) BUN 18 (7-18) mg/dL Creatinine 0.97 (0.70-1.30) mg/dL Estim Creat Clear Calc 61.78 ml/min Est GFR (MDRD) Af Amer 97 (>60) mL/min Est GFR (MDRD) Non-Af 80 (>60) mL/min BUN/Creatinine Ratio 18.5 (10-20) RATIO Glucose 86 (74-106) mg/dL Calcium 9.2 (8.5-10.1) mg/dL - Rhythm Strip Rhythm Strip: Sinus Rhythm Rate: 79 Ectopy: None - EKG Initial EKG Interpretation: Sinus Rhythm, No Acute Injury Pattern, LAFB Prior: Unchanged - Medical Decision Making Discussed with patient at length. His exam is benign and does not appear to have any acute injuries or in need of any radiography except for possibly a chest x-ray, but after we ordered it he told us that he had one 1 week ago, which his doctor confirms, so we canceled that. Initially he was indecisive about staying in the hospital for placement to assisted living, eventually he decided he did not want to do that right now. We obtain some basic labs in case he did, but then he changed his mind. He wants to go home and then discussed with his doctor, who I spoke with about this. Patient was able to stand without assistance and walk with assistance, he has the typical Parkinson's shuffling gait. His labs are normal. ED Disposition - Plan for ED Patient: Disposition: Home or Assisted Living Diagnosis: Multiple falls, Parkinson's disease Instructions: Parkinson's Disease: Home Safety Referrals: Casper Do DO [Primary Care Provider] - (call for appt)
[2020-02-25 06:53] LABS: Absolute Lymphocyte Count 1.35 X10^3/uL (0.83-4.51); Basophil# 0.05 X10^3/uL; Basophil% 0.7 % (0-1); Eosinophil# 0.37 X10^3/uL; Hematocrit 39.1 % (40-54); Hemoglobin 13.3 g/dL (13.0-16.5); Lymphocyte # 1.35 X10^3/ul (4.0); Lymphocyte % 18.1 % (19-41); Mean Corpuscular Hgb 31.5 pg (27.0-32.0); Mean Corpuscular Volume 92.7 fL (80-94); Mean Platelet Vol. 10.5 fl (6.2-12.0); Monocyte# 0.63 X10^3/uL; Monocyte% 8.4 % (0-10); NRBC Flagged by Analyzer 0 % (0-5); Neutrophil # 4.99 X10^3/uL (2.7-7.7); Neutrophil % 66.7 % (47-70); Platelet Count 223 K/mm3 (150-450); RBC Distribution Width CV 12.9 % (11.6-14.6); RBC Distribution Width SD 43.3 fl (35.1-43.9); Red Blood Count 4.22 M/mm3 (4.6-6.2); White Blood Count 7.5 K/mm3 (4.4-11.0)
[2020-02-25 07:05] LABS: Anion Gap 3 (5-15); BUN 18 mg/dL (7-18); BUN/Creat Ratio 18.5 RATIO (10-20); Calcium,Total 9.2 mg/dL (8.5-10.1); Chloride 111 mmol/L (98-107); Creatinine, Serum 0.97 mg/dL (0.70-1.30); EST Glomerular Filtration Rate 80 mL/min (>60); Est Glom Filt Rate - Afr Amer 97 mL/min (>60); Estimated Creatinine Clearance 61.78 ml/min; Glucose 86 mg/dL (74-106); Potassium 3.8 mmol/L (3.5-5.1); Sodium Level 142 mmol/L (136-145)
--- NOTE | 2020-02-25 07:29 | ED.RN ---
paged dr ike buenrostro for bed 3
--- NOTE | 2020-02-25 07:31 | ED.RN ---
PT AMBULATED PER PHYSICIAN REQUEST. PT UNSTEADY ON FEET, WHICH IS BASELINE DUE TO PARKINSONS. PT STATES THAT HE WOULD LIKE TO GO HOME FOR CONSIDERATION OF PLACEMENT TO ASSISTED LIVING FOR HIMSELF AND HIS . PT STATES THAT HE IS NOT READY TO LEAVE HOME YET BUT VOICES CONCERNS ABOUT BEING UNABLE TO CARE FOR HIMSELF OR HIS . PT STATES WHEN HE FALLS HE IS SOMETIMES NOT ABLE TO GET BACK UP AND HIS IS UNABLE TO HELP HIM. HE ALSO STATES THAT HE AND HIS HAVE AN UPSTAIRS BEDROOM AND THAT STAIRS ARE DIFFICULT DUE TO PARKINSONS WELL. ED PHYSICIAN TO CONSULT WITH PCP AND PT DIRECTED TO DISCUSS LIVING ARRANGEMENT OPTIONS WITH PCP WELL. PT ALSO ADVISED THAT CURRENT LIVING CONDITIONS ARE UNSAFE, AND PT AGREES. PT WILL BE DC HOME WITH DIRECTION TO ARRANGE FOR ALTERNATIVE LIVING ARRANGMENTS IN THE NEAR FUTURE.
== END 2020-02-25 08:28 | disposition home or self-care (01) ==
PROVIDERS: Emergency Provider Emergency Medicine; PCP Family Medicine
DX: G20 Parkinson's disease (principal); I71.4 Abdominal aortic aneurysm, without rupture; F41.9 Anxiety disorder, unspecified; I25.10 Atherosclerotic heart disease of native coronary artery without angina pectoris; J44.9 Chronic obstructive pulmonary disease, unspecified; K58.9 Irritable bowel syndrome, unspecified; I73.00 Raynaud's syndrome without gangrene; M41.9 Scoliosis, unspecified; R29.6 Repeated falls; Z87.891 Personal history of nicotine dependence; Z79.899 Other long term (current) drug therapy; Z79.82 Long term (current) use of aspirin
CPT/HCPCS: 80048; 85025; 93005; 99283; A4216

== ENCOUNTER 2020-07-18 08:36 | Emergency (ER) | payer MEDICARE, OTHER, SELFPAY ==
[2020-04-14 10:42] VITALS: BMI 19.8
[2020-07-18 08:36] VITALS: BP 128/74; PULSE 83; RESP 14; TEMP 36.6; O2SAT 99; BMI 19.6
--- NOTE | 2020-07-18 09:06 | ED.VIS.GEN ---
History of Present Illness Chief Complaint: Fall Narrative: 74-year-old male with past medical history of Parkinson's disease presents with concern for difficulty moving. States is been progressive over 1 year. States that he was having difficulty moving this morning but is now loosened up. Denies any falls this morning. Denies any head injury. Denies any chest pain or shortness of breath. Past Medical History - Allergies and Home Meds Allergies/Adverse Reactions: Allergies pregabalin [From Lyrica] Adverse Reaction (Severe, Verified 07/18/20 08:40) hallucinations Primary Care Physician: Casper Do DO [Primary Care Provider] - Conner Tejeda MD [NON-STAFF] - 3-5 Days Surgical History: noncontributory Smoking Status: Former smoker - Family History Maternal Family History: Family History (Last Reviewed 04/14/20 @ 11:[address] Casper Do DO) Brother Alcoholism Father Heart disease Myocardial infarction Uncle Heart disease Myocardial infarction Grandfather Heart disease Myocardial infarction Family History: Reports: No pertinent history Paternal Family History: Family History (Last Reviewed 04/14/20 @ 11:[address] Casper Do DO) Brother Alcoholism Father Heart disease Myocardial infarction Uncle Heart disease Myocardial infarction Grandfather Heart disease Myocardial infarction Family History: Reports: No pertinent history Review of Systems General: Denies: Chills, Fever, Sweats Eyes: Denies: Visual changes - bilaterally, Diplopia ENT: Denies: Rhinorrhea, Sore throat Cardiovascular: Denies: Chest pain, Palpitations Respiratory: Denies: Dyspnea, Cough, Dyspnea on exertion Gastrointestinal: Denies: Abdominal pain, Nausea, Vomiting, Diarrhea, Melena, Hematochezia Genitourinary: Denies: Dysuria, Hematuria, Frequency Musculoskeletal: Denies: Back pain, Extremity Pain Skin: Denies: Rash, Wounds Neurological: Reports: Weakness. Denies: Headache, Numbness Physical Exam Vital Signs/Narrative: Vital Signs Temp Pulse Resp BP Pulse Ox 07/18/20 08:36 97.9 F 83 14 128/74 H 99 Inital Vital Signs reviewed: Yes General: Well nourished, Well developed, No Acute Distress Head: Normocephalic, Atraumatic Eyes: Perrl, EOMI ENT: Moist mucous membranes, No rhinorrhea Neck: Supple, Nontender Cardiovascular: Regular rate, Regular rhythm, No murmurs Respiratory: No distress, CTA bilaterally, Chest nontender Abdomen: Soft, Nontender, Nondistended, Normal bowel sounds Back: Nontender, Normal Inspection Extremities: Nontender, No edema Skin: Normal color, No rash Neurological: Alert, Oriented x3, Cranial nerves II-XII grossly intact, Normal Strength, Normal Sensation Psychological: Normal affect, Normal Mood Diagnostic/Tx/Re-eval - Medical Decision Making Appears well nontoxic. Vital signs within normal limits. No focal neurologic deficit. Patient able to ambulate within the department. Patient stiffness as well as difficulty ambulating secondary to his Parkinson's. I did offer the patient blood work. After discussion he states that he does want to just follow-up with his primary care doctor which she has an appointment within the next few days. Advised also to follow-up with his neurologist Dr. Tejeda. Asked to return for new or worsening symptoms. Patient agreeable and discharged home in stable condition. Impression: 1. Difficulty ambulating 2. Parkinson's disease ED Disposition - Plan for ED Patient: Disposition: Home or Assisted Living Instructions: Understanding Parkinson's Disease, Common Symptoms of Parkinson's Disease, Exercise for Parkinson's Disease, Parkinson's Disease: Managing Day to Day Referrals: Casper Do DO [Primary Care Provider] - Conner Tejeda MD [NON-STAFF] - 3-5 Days
[2020-07-18 09:13] VITALS: BP 125/77; PULSE 67; RESP 15; O2SAT 95; O2SAT 99
== END 2020-07-18 09:35 | disposition home or self-care (01) ==
LOC: ED 09:15
PROVIDERS: Emergency Provider Emergency Medicine; PCP Family Medicine
DX: R26.2 Difficulty in walking, not elsewhere classified (principal); G20 Parkinson's disease; Z82.49 Family history of ischemic heart disease and other diseases of the circulatory system
CPT/HCPCS: 99281; 99283

== ENCOUNTER 2020-11-28 06:08 | Emergency (ER) | payer MEDICARE, OTHER, SELFPAY ==
[2020-08-04 10:16] VITALS: BMI 18.8
[2020-11-28 06:17] VITALS: BP 184/104; PULSE 95; RESP 16; TEMP 36.8; O2SAT 98; BMI 22.8
--- NOTE | 2020-11-28 06:18 | CT_ITS ---
STUDY: CT BRAIN WITHOUT CONTRAST REASON FOR EXAM: Male, 75 years old. ALTERED MENTAL STATUS -- PT EXTREMELY KYPHOTIC RADIATION DOSAGE (If Supplied By Facility): CTDIvol = ( 29.71 ) mGy, DLP = ( 649.21 ) mGycm TECHNIQUE: Transaxial CT imaging of the brain was performed without administration of intravenous contrast material. Individualized dose optimization techniques were used for this CT. COMPARISON: No relevant priors. FINDINGS: Normal soft tissue structures. Normal calvarium. Normal size ventricles and extra-axial spaces for the patient''s age. There are areas of decreased attenuation within the white matter tracts of the supratentorial brain, consistent with microvascular disease changes. Normal basal ganglia and thalami. Normal brainstem. Normal cerebellum. There is no intracranial hemorrhage. There are no findings of an acute ischemic infarction. Normal visualized paranasal sinuses. CT/Brain/Head without Contrast IMPRESSION: Chronic involutional changes of the brain. Electronically Signed: Fawad Greene MD at 7:45 EST Tel , Service support ,
--- NOTE | 2020-11-28 06:18 | RAD_ITS ---
STUDY: X-RAY CHEST REASON FOR EXAM: Male, 75 years old. Altered mental status, confusion. TECHNIQUE: AP portable chest. COMPARISON: February 16, 2020. CT chest September 04, 2012. FINDINGS: The lungs are clear and expanded. There is no demonstrated pleural abnormality. Lungs are hyperinflated. Normal size heart. Normal mediastinum and deyanira. Normal visualized pulmonary arteries. Normal visualized aortic arch and descending thoracic aorta. Normal visualized thoracic spine. Normal visualized ribs, clavicles, and shoulders. There is no demonstrated abnormality of the visualized soft tissue structures of the upper abdomen. RAD/Chest 1 View (Portable) IMPRESSION: No acute cardiopulmonary disease. COPD. Electronically Signed: Robi Webster MD at 6:42 EST , Service support ,
--- NOTE | 2020-11-28 06:18 | EKG12_ITS ---
Test Reason : ALT LOC Blood Pressure : / mmHG Vent. Rate : 096 BPM Atrial Rate : 096 BPM P-R Int : 176 ms QRS Dur : 072 ms QT Int : 334 ms P-R-T Axes : 067 -60 018 degrees QTc Int : 421 ms Normal sinus rhythm Left axis deviation Nonspecific ST abnormality Abnormal ECG Confirmed by BUFFY SKINNER, JAIDEN ([id number]), make up editor HENRY UP ([id number]) on 11/30/2020 12:41:29 PM Referred By: Confirmed By:JAIDEN BAER MD
--- NOTE | 2020-11-28 06:20 | ED.DCSUM_ITS ---
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 reportedly called EMS today noting that her was confused. He reportedly threw coffee at her while angry. Patient states that he has Parkinson's. He states that sometimes he wakes up in the morning and things are different for him. He states that he is glad that the police were called today because people are stealing large amounts of money from his bank accounts and would like to get to the bottom of it. He states he currently has no complaints of a physical nature. Patient denies any suicidal or homicidal ideation. He denies any auditory hallucinations. He denies any visual hallucinations. <Bharat Yost - Last Filed: 11/28/20 06:32> <Gennaro Miller - Last Filed: 11/28/20 11:10> Chief Complaint: Alt LOC - Past Medical History (1) Raynauds disease Status: Chronic (2) Abdominal aortic aneurysm Status: Chronic (3) IBS (irritable bowel syndrome) Status: Chronic (4) Parkinson's disease Status: Chronic (5) Frequent falls Status: Chronic (6) Anxiety Status: Chronic (7) COLD (chronic obstructive lung disease) Status: Chronic <Bharat Yost - Last Filed: 11/28/20 06:32> Past Medical History Surgical History: noncontributory Lives: Spouse/ Significant Other Smoking Status: Current some day smoker Alcohol: Occasional Drugs: None - Family History Maternal Family History: Family History (Last Reviewed 08/04/20 @ 10:[address] Casper Do DO) Brother Alcoholism Father Heart disease Myocardial infarction Uncle Heart disease Myocardial infarction Grandfather Heart disease Myocardial infarction Family History: Reports: No pertinent history Paternal Family History: Family History (Last Reviewed 08/04/20 @ 10:[address] Casper Do DO) Brother Alcoholism Father Heart disease Myocardial infarction Uncle Heart disease Myocardial infarction Grandfather Heart disease Myocardial infarction Family History: Reports: No pertinent history <Bharat Yost - Last Filed: 11/28/20 06:32> - Family History Maternal Family History: Family History (Last Reviewed 08/04/20 @ 10:[address] Casper Do DO) Brother Alcoholism Father Heart disease Myocardial infarction Uncle Heart disease Myocardial infarction Grandfather Heart disease Myocardial infarction Paternal Family History: Family History (Last Reviewed 08/04/20 @ 10:[address] Casper Do DO) Brother Alcoholism Father Heart disease Myocardial infarction Uncle Heart disease Myocardial infarction Grandfather Heart disease Myocardial infarction <AngelaGennaro - Last Filed: 11/28/20 11:10> - Allergies and Home Meds Allergies/Adverse Reactions: Allergies pregabalin [From Lyrica] Adverse Reaction (Severe, Verified 11/28/20 06:10) hallucinations Primary Care Physician: Casper Do DO [Primary Care Provider] - Review of Systems General: Denies: Chills, Fever, Sweats Eyes: Denies: Visual changes - bilaterally, Diplopia ENT: Denies: Rhinorrhea, Sore throat Cardiovascular: Denies: Chest pain, Palpitations Respiratory: Denies: Dyspnea, Cough, Dyspnea on exertion Gastrointestinal: Denies: Abdominal pain, Nausea, Vomiting, Diarrhea, Melena, Hematochezia Genitourinary: Denies: Dysuria, Hematuria, Frequency Musculoskeletal: Denies: Back pain, Extremity Pain Skin: Denies: Rash, Wounds Neurological: Reports: - - Patient notes frequent falls.. Denies: Headache, Weakness, Numbness Psych: Denies: Depression, Anxiety, Suicidal thoughts, Suicidal ideations <Bharat Yost - Last Filed: 11/28/20 06:32> Physical Exam Inital Vital Signs reviewed: Yes General: Well nourished, Well developed, No Acute Distress Head: Normocephalic, Atraumatic Eyes: Perrl, EOMI ENT: Moist mucous membranes, No rhinorrhea Neck: Supple, Nontender Cardiovascular: Regular rate, Regular rhythm, No murmurs Respiratory: No distress, CTA bilaterally, Chest nontender Abdomen: Soft, Nontender, Nondistended, Normal bowel sounds Back: Nontender, Normal Inspection Extremities: Nontender, No edema Skin: Normal color, No rash Neurological: Alert, Cranial nerves II-XII grossly intact, Normal Strength, Normal Sensation. Negative for: Oriented x3 Psychological: - - Patient is focused on people stealing money from his bank accounts. No suicidal or homicidal ideation.. Negative for: Depressed, Tearful <Bharat Yost - Last Filed: 11/28/20 06:32> Vital Signs/Narrative: Vital Signs Pulse Resp BP Pulse Ox 11/28/20 09:24 96 18 170/117 H 98 11/28/20 07:39 97 18 98 <Gennaro Miller - Last Filed: 11/28/20 11:10> Diagnostic/Tx/Re-eval - Medical Decision Making My interpretation of the single view portable chest x-ray is no acute disease. <Bharat Yost - Last Filed: 11/28/20 06:32> - Medical Decision Making The patient was initially evaluated and underwent medical clearance examination. Labs, urine, tox, and CT head were all unremarkable. I did have social work evaluate the patient. They were able to speak to the patient's . She does not want him placed at this time for geriatric psychiatry. She thinks that she would rather keep him home and just follow-up with his doctor. I do feel that this is reasonable. The patient's has actually left her job and has been taking care of him full-time. He does have a good support structure. She was counseled though that if anything changes and she feels like she is overwhelmed to return. The patient will be discharged home. Impression 1. Behavioral disturbance with history of Parkinson's <Gennaro Miller - Last Filed: 11/28/20 11:10> ED Disposition <Bharat Yost - Last Filed: 11/28/20 06:32> <Gennaro Miller - Last Filed: 11/28/20 11:10> - Plan for ED Patient: Diagnosis: Parkinson's disease Instructions: ED Confusion Referrals: Casper Do DO [Primary Care Provider] -
[2020-11-28 06:23] LABS: Hematocrit 45.6 % (40-54); Hemoglobin 14.9 g/dL (13.0-16.5); Mean Corp Hgb Conc 32.7 g/dL (32-36); Mean Corpuscular Hgb 31.3 pg (27.0-32.0); Mean Corpuscular Volume 95.8 fL (80-94); Mean Platelet Vol. 10.9 fl (6.2-12.0); Platelet Count 184 K/mm3 (150-450); RBC Distribution Width CV 12.5 % (11.6-14.6); RBC Distribution Width SD 44.1 fl (35.1-43.9); Red Blood Count 4.76 M/mm3 (4.6-6.2); White Blood Count 6.9 K/mm3 (4.4-11.0)
[2020-11-28 06:30] LABS: Prothrombin Time (Protime)PT. 12.9 SECONDS (11.7-14.9)
[2020-11-28 06:49] LABS: ALB/GLOB Ratio 0.8 RATIO (0.9-2.4); AST(SGOT) 20 U/L (15-37); Alanine Aminotransfer ALT/SGPT 8 U/L (16-61); Albumin, Serum 3.9 g/dL (3.2-5.0); Alkaline Phosphatase 99 U/L (45-117); Anion Gap 3 (5-15); BUN 26 mg/dL (7-18); BUN/Creat Ratio 19.8 RATIO (10-20); Calcium,Total 9.2 mg/dL (8.5-10.1); Chloride 106 mmol/L (98-107); Creatinine, Serum 1.31 mg/dL (0.70-1.30); EST Glomerular Filtration Rate 57 mL/min (>60); Est Glom Filt Rate - Afr Amer 69 mL/min (>60); Estimated Creatinine Clearance 47.72 ml/min; Globulin 4.7 g/dL (2.2-4.2); Glucose 92 mg/dL (74-106); Potassium 3.9 mmol/L (3.5-5.1); Protein, Total 8.6 g/dL (6.4-8.2); Sodium Level 140 mmol/L (136-145)
[2020-11-28 07:14] LABS: Mucous, Urine 0 SEEN /hpf (<or=2+); Red Blood Cells-Urine 0 SEEN /hpf (0-5); Squamous Epithelial Cells - UA 0 SEEN /hpf (0-5); White Blood Cells 0 SEEN /hpf (0-5)
[2020-11-28 07:28] LABS: Color, Urine Yellow (Yellow); Glucose, Dipstick Normal (Normal); Ketone-Dipstick Negative (Negative); Leukocyte Esterase-Dipstick Negative /ul (Negative); Nitrite-Dipstick Negative (Negative); Occult Blood-Urine Negative /ul (Negative); Protein-Dipstick Negative (Negative); Specific Gravity, Urine 1.015 (1.002-1.030); Urine Bilirubin Dipstick Negative (Negative); Urine Clarity Clear (Clear); Urine Urobilinogen Normal (Normal)
[2020-11-28 07:29] LABS: Alcohol, Blood (Medical)-Serum < 3.0 mg/dL
[2020-11-28 07:31] LABS: Amphetamine Urine VISTA NEGATIVE (<1000 ng/mL); Barbiturate Urine VISTA NEGATIVE (< 200 ng/mL); Benzodiazepine Urine VISTA NEGATIVE (< 200 ng/mL); Cocaine Urine VISTA NEGATIVE (< 300 ng/mL); Ecstacy Urine VISTA NEGATIVE (< 500 ng/mL); Methadone Urine VISTA NEGATIVE (< 300 ng/mL); PCP Urine VISTA NEGATIVE (< 25 ng/mL); THC Urine VISTA NEGATIVE (< 50 ng/mL); Vista UDS pH Range 7
[2020-11-28 07:35] LABS: Amorphous Sediment 1+; Bacteria RARE /hpf (None Seen)
[2020-11-28 07:39] VITALS: PULSE 97; RESP 18; O2SAT 98
[2020-11-28 09:24] VITALS: BP 170/117; PULSE 96; RESP 18; O2SAT 98
--- NOTE | 2020-11-28 10:30 | CM.ED ---
SOCIAL WORK Informant: Dr. Miller Reason for Consult: Discharge Planning Call to patient's to discuss discharge planning. reports believes patient is sun downing due to Parkinson's. Discussed possible [facility] placement due to patient's recent behaviors. reports would like to take patient home and follow up with neurologist regarding medications. denies any further needs at this time. Encouraged to bring patient back to ER if behaviors escalate. Plan: Home with Ora Mercado, COAL WASHER, MEDICAL EDUCATOR
[2020-11-28 11:34] VITALS: BP 158/100; PULSE 99; RESP 18; O2SAT 96
== END 2020-11-28 11:35 | disposition home or self-care (01) ==
PROVIDERS: Emergency Provider Emergency Medicine; PCP Family Medicine
DX: F91.9 Conduct disorder, unspecified (principal); G20 Parkinson's disease; K58.9 Irritable bowel syndrome, unspecified; I73.00 Raynaud's syndrome without gangrene; J44.9 Chronic obstructive pulmonary disease, unspecified; R29.6 Repeated falls; Z82.49 Family history of ischemic heart disease and other diseases of the circulatory system; I71.4 Abdominal aortic aneurysm, without rupture; F41.9 Anxiety disorder, unspecified; Z79.899 Other long term (current) drug therapy
CPT/HCPCS: 70450; 71045; 80053; 80307; 81001; 82077; 84484; 85027; 85610; 85730; 87426; 93005; 99285; A4216

== ENCOUNTER 2021-02-23 18:32 | Inpatient (IN) | payer MEDICARE, OTHER, SELFPAY ==
[2020-12-07 14:18] VITALS: BMI 22.0
[2021-02-23] VITALS (7 sets, daily range): BP systolic 158–179; BP diastolic 71–106; PULSE 86–94; RESP 15–19; TEMP 36.6–36.7; O2SAT 94–99; BMI 20.3
--- NOTE | 2021-02-23 19:34 | RAD_ITS ---
STUDY: X-RAY CHEST REASON FOR EXAM: Male, 75 years old. sob TECHNIQUE: Single AP portable view of the chest. COMPARISON: 11/28/2020. FINDINGS: There is hyperinflation of the lungs consistent with chronic obstructive lung disease (COPD). No infiltrates or effusions are seen. There is no demonstrated pleural abnormality. Normal size heart. Normal mediastinum and deyanira. Normal visualized pulmonary arteries. There is atherosclerotic tortuosity of the aortic arch and descending thoracic aorta. Normal visualized thoracic spine. Normal visualized ribs, clavicles, and shoulders. There is no demonstrated abnormality of the visualized soft tissue structures of the upper abdomen. RAD/Chest 1 View (Portable) IMPRESSION: There are findings consistent with COPD. There is no evidence of acute chest disease. Electronically Signed: Shawn Tenorio MD at 20:56 EDT , Service support ,
--- NOTE | 2021-02-23 19:35 | EKG12_ITS ---
Test Reason : Blood Pressure : / mmHG Vent. Rate : 082 BPM Atrial Rate : 082 BPM P-R Int : 168 ms QRS Dur : 080 ms QT Int : 376 ms P-R-T Axes : 044 -48 013 degrees QTc Int : 439 ms Normal sinus rhythm Left axis deviation Nonspecific ST abnormality Abnormal ECG Confirmed by FITO SKINNER, GINA ([id number]), scientific publications editor HENRY UP ([id number]) on 02/28/2021 10:06:58 A M Referred By: KARINA Confirmed By:LONA PAYTON MD
[2021-02-23 19:49] LABS: Absolute Neutrophil Count 4.1 X10^3/uL (2.0-7.7); Basophil# 0.04 X10^3/uL; Basophil% 0.6 % (0-1); Eosinophil# 0.21 X10^3/uL; Eosinophils% 3.3 % (0-5); Hematocrit 42.4 % (40-54); Hemoglobin 14.1 g/dL (13.0-16.5); Lymphocyte % 21.7 % (19-41); Mean Corp Hgb Conc 33.3 g/dL (32-36); Mean Corpuscular Hgb 31.2 pg (27.0-32.0); Mean Corpuscular Volume 93.8 fL (80-94); Monocyte# 0.63 X10^3/uL; Monocyte% 9.8 % (0-10); NRBC Flagged by Analyzer 0 % (0-5); Neutrophil % 63.7 % (47-70); Platelet Count 210 K/mm3 (150-450); RBC Distribution Width CV 12.3 % (11.6-14.6); RBC Distribution Width SD 42.4 fl (35.1-43.9); Red Blood Count 4.52 M/mm3 (4.6-6.2); White Blood Count 6.4 K/mm3 (4.4-11.0)
[2021-02-23] MEDS: 0.9% Normal Saline 1,000 ML 1000 ML IV (19:53)
[2021-02-23] MEDS: Ondansetron 4 MG/2 ML Vial IV (19:53)
[2021-02-23 20:02] LABS: ALB/GLOB Ratio 0.9 RATIO (0.9-2.4); AST(SGOT) 15 U/L (15-37); Alanine Aminotransfer ALT/SGPT < 6 U/L (16-61); Albumin, Serum 3.6 g/dL (3.2-5.0); Alkaline Phosphatase 85 U/L (45-117); Anion Gap 6 (5-15); BUN 21 mg/dL (7-18); BUN/Creat Ratio 19.6 RATIO (10-20); Calcium,Total 9.1 mg/dL (8.5-10.1); Chloride 108 mmol/L (98-107); Creatinine, Serum 1.07 mg/dL (0.70-1.30); EST Glomerular Filtration Rate 72 mL/min (>60); Est Glom Filt Rate - Afr Amer 87 mL/min (>60); Estimated Creatinine Clearance 58.29 ml/min; Globulin 4.2 g/dL (2.2-4.2); Glucose 87 mg/dL (74-106); Potassium 3.2 mmol/L (3.5-5.1); Protein, Total 7.8 g/dL (6.4-8.2); Sodium Level 143 mmol/L (136-145)
[2021-02-23 20:03] LABS: Lactic Acid 0.8 mmol/L (0.4-1.9)
--- NOTE | 2021-02-23 20:14 | EDS_ITS ---
HPI History of Present Illness Chief Complaint: Diarrhea Informant: patient and family Onset/Context/Timing Onset: Days Context: Gradual Onset Timing: Continuous Current Severity: Moderate Maximum Severity: Moderate Narrative Narrative: The patient is a 75-year-old male with medical history significant for COPD, Parkinson's, and Raynaud's disease who presents to the emergency department with increasing weakness, shortness of breath, diarrhea. The patient has been compliant with his medications. Over the past 4 days, he states that he had some shortness of breath with a scant cough. He states for the past 5 days, he has had copious amounts of loose, watery diarrhea. He does admit to some abdominal cramping. He denies any fevers or chills. His daughter at the bedside states that she went to check on him today and he was on the ground because he felt so weak. Prior similar symptoms: No Recent Illness/Hospitalization: No [facility] Medical History Abdominal aortic aneurysm Atherosclerotic heart disease of [place] coronary artery without angina pectoris Parkinson's disease Raynauds disease Home Medications aspirin 325 mg tablet 325 mg PO QDAY tab 12/19/17 [History Last Taken Unknown] carbidopa-levodopa 1 tab PO BID 06/06/19 [History Last Taken Unknown] hydroxyzine HCl 25 mg tablet 25 mg PO BID #60 tab 10/14/19 [Rx Last Taken Unknown] dicyclomine 10 mg capsule 20 mg PO BID PRN #60 cap 12/16/19 [Rx Last Taken Unknown] hospital bed #1 ea 02/23/20 [History Last Taken Unknown] hospital bed #1 ea 02/23/20 [Rx Last Taken Unknown] cinnamon bark 500 mg capsule 500 mg PO TID cap 04/14/20 [History Last Taken Unknown] walker #1 ea 04/14/20 [Rx Last Taken Unknown] pimavanserin 10 mg tablet 10 mg PO DAILY #30 tab 08/04/20 [Rx Last Taken Unknown] tamsulosin 0.4 mg capsule 0.4 mg PO QHS #30 cap 08/04/20 [Rx Last Taken Unknown] quetiapine 25 mg tablet 25 mg PO QHS #30 tab 12/07/20 [Rx Last Taken Unknown] tramadol 50 mg tablet 50 mg PO Q6H PRN #150 tab MDD 5 a day 01/31/21 [Rx Last Taken Unknown] Allergy/AdvReac Type Severity Reaction Status Date / Time pregabalin [From Lyrica] AdvReac Severe hallucinati Verified 12/07/20 14:24 ons Family History Brother Alcoholism Father Heart disease Myocardial infarction Uncle Heart disease Myocardial infarction Grandfather Heart disease Myocardial infarction Surgical History History of cataract surgery History of colonoscopy History of tonsillectomy Social History Smoking Status: Former smoker how long ago did patient quit smokin alcohol intake: never substance use type: does not use what type of physical activity do you participate in: walking frequency: daily ROS ROS ED Constitutional Constitutional ED: Denies chills or fever(s) Eyes Eyes: Denies blurry vision or change in vision ENT ENT ED: Denies ear pain or sore throat Cardiovascular Cardiovascular: Denies chest pain or palpitations Respiratory/Chest Respiratory/Chest: Reports cough and dyspnea; Denies dyspnea on exertion Gastrointestinal Gastrointestinal: Reports diarrhea and nausea; Denies abdominal pain or vomiting Genitourinary Genitourinary ED: Denies dysuria or urinary frequency Musculoskeletal Musculoskeletal: Denies arthralgias or myalgias Integumentary Denies rash Neurologic Neurologic: Denies headache(s) or paresthesias Psychiatric Psychiatric: Denies anxiety or depression Endocrine Endocrinology: Denies polydipsia or polyuria Allergic/Immunologic Allergic/Immunologic ED: Denies urticaria EXAM Physical Exam Const Vital Signs: 02/23/21 18:33 02/23/21 18:34 02/23/21 20:32 Temperature 98.1 F 98.1 F Temperature Source Temporal Temporal Pulse Rate 89 89 94 Respiratory Rate 15 15 18 Blood Pressure 158/106 H 158/106 H 175/91 H Blood Pressure Mean 123 123 119 Pulse Ox 94 94 99 Oxygen Delivery Method Room Air Room Air Room Air 02/23/21 20:34 02/23/21 21:34 Temperature 98.1 F 98 F Temperature Source Temporal Oral Pulse Rate 94 92 Respiratory Rate 18 18 Blood Pressure 175/91 H 179/93 H Blood Pressure Mean 119 121 Pulse Ox 99 99 Oxygen Delivery Method Room Air Room Air Positive cachectic General Appearance ED: cachectic Nutritional Appearance: cachectic HEENT Reports normocephalic, head/scalp atraumatic and moist mucous membranes Eyes PERRL and EOMs intact bilaterally Neck no lymphadenopathy and supple General: Negative for tenderness Chest Wall inspection of chest normal Resp normal respiratory effort Auscultation: wheezes Cardio regular rate, regular rhythm and no murmurs GI normal to inspection, nondistended, normoactive bowel sounds Palpation: tender; Negative for guarding or rebound tenderness present Back/Spine no CVA tenderness Cervical Spine: Negative for cervical spine tenderness Thoracic Spine / Upper Back: Negative for thoracic spinal tenderness Extremity normal to inspection General Extremety ED: Negative for tenderness Neuro oriented x3 and CN's II-XII intact bilaterally Neuro Narrative: No focal deficits appreciated. Sensorium / Orientation: alert Psych mental status grossly normal Skin no rashes or lesions noted, no wounds and skin turgor normal MDM MDM MDM Narrative Medical decision making narrative: The patient is a 75-year-old male presents to the emergency department diarrhea, shortness of breath, and increasing weakness. IV was established. Screening labs are obtained. He does not have significant leukocytosis. He is mildly hypokalemic but his renal function is unremarkable. His lactic acid is normal. Patient underwent chest x-ray. This is reviewed by both myself and the radiologist. There is no focal infiltrative process. There is changes consistent with a COPD. He is not requiring any significant oxygen. With his persistent diarrhea, the patient underwent CT imaging of the abdomen and pelvis. This does show evidence of colitis. With his persistent diarrhea, dehydration, and generalized weakness I do feel that he would benefit from admission. The patient was discussed with the hospitalist. Impression 1. Generalized weakness 2. Colitis Lab Data Attestation: I reviewed the patient's lab results. Labs: Laboratory Results - last 24 hr 02/23/21 02/23/21 02/23/21 19:30 19:30 19:30 WBC 6.4 RBC 4.52 L Hgb 14.1 Hct 42.4 MCV 93.8 MCH 31.2 MCHC 33.3 RDW Std Deviation 42.4 RDW Coeff of Boni 12.3 Plt Count 210 MPV 11.0 Immature Gran % (Auto) 0.900 Neut % (Auto) 63.7 Lymph % (Auto) 21.7 [place] % (Auto) 9.8 Eos % (Auto) 3.3 Baso % (Auto) 0.6 Absolute Neuts (auto) 4.1 Absolute Lymphs (auto) 1.40 Nucleated RBC % 0 Sodium 143 Potassium 3.2 L Chloride 108 H Carbon Dioxide 29.0 Anion Gap 6 BUN 21 H Creatinine 1.07 Estim Creat Clear Calc 58.29 Est GFR (MDRD) Af Amer 87 Est GFR (MDRD) Non-Af 72 BUN/Creatinine Ratio 19.6 Glucose 87 Lactic Acid 0.8 Calcium 9.1 Total Bilirubin 0.80 AST 15 ALT < 6 L Alkaline Phosphatase 85 Total Protein 7.8 Albumin 3.6 Globulin 4.2 Albumin/Globulin Ratio 0.9 Urine Color Urine Clarity Urine pH Ur Specific [place] Urine Protein Urine Glucose (UA) Urine Ketones Urine Occult Blood Urine Nitrite Urine Bilirubin Urine Urobilinogen Ur Leukocyte Esterase Urine RBC Urine WBC Ur Squamous Epith Cells Urine Bacteria Urine Mucus 02/23/21 21:49 WBC RBC Hgb Hct MCV MCH MCHC RDW Std Deviation RDW Coeff of Boni Plt Count MPV Immature Gran % (Auto) Neut % (Auto) Lymph % (Auto) [place] % (Auto) Eos % (Auto) Baso % (Auto) Absolute Neuts (auto) Absolute Lymphs (auto) Nucleated RBC % Sodium Potassium Chloride Carbon Dioxide Anion Gap BUN Creatinine Estim Creat Clear Calc Est GFR (MDRD) Af Amer Est GFR (MDRD) Non-Af BUN/Creatinine Ratio Glucose Lactic Acid Calcium Total Bilirubin AST ALT Alkaline Phosphatase Total Protein Albumin Globulin Albumin/Globulin Ratio Urine Color Yellow Urine Clarity Clear Urine pH 7.0 Ur Specific [place] 1.010 Urine Protein Negative Urine Glucose (UA) Normal Urine Ketones Negative Urine Occult Blood 10 H Urine Nitrite Negative Urine Bilirubin Negative Urine Urobilinogen Normal Ur Leukocyte Esterase Negative Urine RBC 0-5 SEEN Urine WBC 0 SEEN Ur Squamous Epith Cells 0-5 SEEN Urine Bacteria 0 SEEN Urine Mucus 0 SEEN Radiography Chest X-Ray - ED: 1 View, Read by ED Physician, Unchanged, Normal, Heart, Mediastinum, Bony Structures and Chronic Changes Diagnostic Testing: Radiology Impression Chest X-Ray 02/23/21 19:34 IMPRESSION: There are findings consistent with COPD. There is no evidence of acute chest disease. Electronically Signed: Shawn Tenorio MD at 20:56 EDT , Service support , Abdomen/Pelvis CT 02/23/21 20:48 IMPRESSION: Worsening of the extrahepatic and pancreatic ductal distention. Further evaluation recommended as above. Possible nonspecific colitis and/or colonic ileus. Infrarenal aortic aneurysm has increased from 3 cm to 4.5 cm. Electronically Signed: Shawn Tenorio MD at 21:35 EDT , Service support , Discharge Plan Triage Chief Complaint: Diarrhea ED Provider: Gennaro Miller Dx/Rx/DC Orders Prescriptions: No Action aspirin 325 mg tablet 325 mg PO QDAY RF: 0 cinnamon bark 500 mg capsule 500 mg PO TID RF: 0 (DME) walker Qty: 1 RF: 0 Nuplazid 10 mg tablet 10 mg PO DAILY Qty: 30 RF: 1 tamsulosin 0.4 mg capsule 0.4 mg PO QHS Qty: 30 RF: 2 quetiapine 25 mg tablet 25 mg PO QHS Qty: 30 RF: 1 carbidopa-levodopa 1 TABLET tablet extended release 1 tab PO BID RF: 0 hydroxyzine HCl 25 mg tablet 25 mg PO BID Qty: 60 RF: 4 dicyclomine 10 mg capsule 20 mg PO BID PRN (Reason: abdominal cramping) Qty: 60 RF: 3 (DME) hospital bed Qty: 1 RF: 0 (DME) hospital bed Qty: 1 RF: 0 tramadol 50 mg tablet 50 mg PO Q6H MDD 5 a day PRN (Reason: pain) Qty: 150 RF: 0 Primary Care Provider: Casper Do
--- NOTE | 2021-02-23 20:48 | CT_ITS ---
STUDY: CT ABDOMEN AND PELVIS WITH CONTRAST REASON FOR EXAM: Male, 75 years old. diarrhea x few days RADIATION DOSAGE (If Supplied By Facility): CTDIvol = ( 8.08 ) mGy, DLP = ( 472.56 ) mGycm TECHNIQUE: Transaxial images were obtained from the dome of the diaphragm to the symphysis pubis without oral contrast. IV 100mL Isovue-370 was administered. Sagittal and coronal images were reconstructed. Individualized dose optimization techniques were used for this CT. COMPARISON: 03/28/2013. FINDINGS: The visualized lung bases are unremarkable. The visualized portions of the heart are within normal limits. Normal liver. Normal gallbladder. Moderate distention of the common bile duct, slightly worse than prior exam. Continued abnormal appearance of the gallbladder which is irregular, heterogeneous, atrophic, has some calcifications, and diffusely distended pancreatic duct. Pancreatic duct measures as much as 1.1 cm. Recommend correlation with pancreatic enzymes and liver function tests. Consider ERCP. Normal spleen. Normal bilateral adrenal glands. Normal right kidney. Normal left kidney. Evaluation of the GI tract is limited by absence of oral contrast. Grossly normal appearance of the stomach. No dilated loops of bowel or evidence for small bowel obstruction. Segments of small bowel wall thickening/enteritis, not excluded. Fluid and air filled bowel suggestive of colitis or ileus. There is a 4.5 cm infrarenal aortic aneurysm, increased size since previous study. Ectasia of both common iliac arteries. Normal inferior vena cava. Normal retroperitoneum. Normal urinary bladder. Normal abdominal wall. There are diffuse degenerative changes of the visualized lumbar spine. CT/Abdomen/Pelvis W IV Cont ONLY IMPRESSION: Worsening of the extrahepatic and pancreatic ductal distention. Further evaluation recommended as above. Possible nonspecific colitis and/or colonic ileus. Infrarenal aortic aneurysm has increased from 3 cm to 4.5 cm. Electronically Signed: Shawn Tenorio MD at 21:35 EDT , Service support ,
[2021-02-23 22:01] LABS: Bacteria 0 SEEN /hpf (None Seen); Mucous, Urine 0 SEEN /hpf (<or=2+); White Blood Cells 0 SEEN /hpf (0-5)
[2021-02-23 22:02] LABS: Color, Urine Yellow (Yellow); Glucose, Dipstick Normal (Normal); Ketone-Dipstick Negative (Negative); Leukocyte Esterase-Dipstick Negative /ul (Negative); Nitrite-Dipstick Negative (Negative); Occult Blood-Urine 10 /ul (Negative); Protein-Dipstick Negative (Negative); Urine Bilirubin Dipstick Negative (Negative); Urine Clarity Clear (Clear); Urine Urobilinogen Normal (Normal)
[2021-02-23 22:17] LABS: Red Blood Cells-Urine 0-5 SEEN /hpf (0-5); Squamous Epithelial Cells - UA 0-5 SEEN /hpf (0-5)
--- NOTE | 2021-02-23 23:48 | PCM.HP.STD ---
HPI - General General Date of Admission: 02/23/21 Chief Complaint: Diarrhea, weakness, malaise. HPI Narrative The patient is a 75 y/o M w/ PMHx: BPH, Parkinson's disease, Former Tobacco use, Raynaud's disease, Known AAA, CAD, IBS, COPD who presents to the [facility] ED on 02/23/21 with history of onset significant abdominal cramping with ongoing intractable copious loose watery diarrhea with significant associated weakness, malaise with no recent fevers or chills prompting eventual ED presentation especially following being found by his family on day of presentation on the ground with inability to move secondary to the severity of his weakness. Patient notes is been ongoing for 5 days. He denies any associated nausea or emesis, fever, chills, cough, severe dyspnea, alteration to sense of taste or smell, headaches. Work-up in the ED included T 98.1, heart rate 89, BP initially 158/106, respiratory rate 15, 94% on room air, CBC with WBC 6.4, hemoglobin 14.1, platelet 210 without marked shift, CMP with potassium 3.2, chloride 108, BUN/creatinine 21/1.07, lactic acid 0.8, total bilirubin 0.8, AST/ALT 15/6, urinalysis with specific gravity 1.010, negative ketone, 10 occult blood, negative nitrite, negative leukocyte esterase with no urine WBCs or urine bacteria, CT with chronic COPD type changes with otherwise no acute cardiopulmonary findings, CT abdomen and pelvis with worsening extrahepatic and pancreatic ductal distention, possible nonspecific colitis and/or colonic ileus, infrarenal aortic aneurysm increased from 3 to 4.5 cm. In the ED patient administered NS, IV zosyn therapy. [facility] Medical History (Updated 02/24/21 @ 03:[address] Delma Nunez MD) Abdominal aortic aneurysm Atherosclerotic heart disease of [place] coronary artery without angina pectoris Former smoker Parkinson's disease Raynauds disease Home Medications carbidopa-levodopa 1 tab PO BID 06/06/19 [History Last Taken 02/22/21] hospital bed #1 ea 02/23/20 [History Last Taken Unknown] hospital bed #1 ea 02/23/20 [Rx Last Taken Unknown] cinnamon bark 500 mg capsule 500 mg PO TID cap 04/14/20 [History Last Taken 02/22/21] walker #1 ea 04/14/20 [Rx Last Taken Unknown] tramadol 50 mg tablet 50 mg PO Q6H PRN #150 tab MDD 5 a day 01/31/21 [Rx Last Taken Unknown] aspirin 81 mg PO DAILY 02/24/21 [History Last Taken Unknown] quetiapine 25 mg PO QHS 02/24/21 [History Last Taken Unknown] tamsulosin 0.4 mg PO QHS 02/24/21 [History Last Taken 02/22/21] Allergy/AdvReac Type Severity Reaction Status Date / Time pregabalin [From Lyrica] AdvReac Severe hallucinati Verified 12/07/20 14:24 ons Family History (Updated 02/24/21 @ 03:[address] Delma Nunez MD) Brother Alcoholism Father Heart disease Myocardial infarction Uncle Heart disease Myocardial infarction Grandfather Heart disease Myocardial infarction Mother Heart disease Surgical History History of cataract surgery History of colonoscopy History of tonsillectomy Social History Smoking Status: Former smoker how long ago did patient quit smokin alcohol intake: never substance use type: does not use what type of physical activity do you participate in: walking frequency: daily ROS ROS Narrative Admission Review of Systems: CONSTITUTIONAL: No weight loss, fever, chills, + weakness or fatigue. HEENT: Eyes: No visual loss, blurred vision, double vision or yellow sclerae. Ears, Nose, Throat: No hearing loss, sneezing, congestion, runny nose or sore throat. SKIN: No rash or itching, lesions, wounds. CARDIOVASCULAR: No chest pain, chest pressure or chest discomfort, palpitations, edema, orthopnea, syncopal events. RESPIRATORY: No shortness of breath, cough or sputum, wheezing, hemoptysis. GASTROINTESTINAL: + anorexia, abdominal cramping, diarrhea. No nausea, vomiting, melena, BRBPR. GENITOURINARY: No dysuria, frequency, urgency or retention. NEUROLOGICAL: No headache, dizziness, syncope, paralysis, ataxia, numbness or tingling in the extremities, focal weakness, change in bowel or bladder control, seizure. MUSCULOSKELETAL: + muscle, back pain, joint pain or stiffness. HEMATOLOGIC: + anemia, bleeding or bruising. LYMPHATICS: No enlarged nodes. No history of splenectomy. PSYCHIATRIC: No history of depression or anxiety. ENDOCRINOLOGIC: No reports of sweating, cold or heat intolerance. No polyuria or polydipsia. ALLERGIES: No history of asthma, hives, eczema or rhinitis. Vital Signs Vital Signs Vital Signs: 02/23/21 18:33 02/23/21 18:34 02/23/21 20:32 Temperature 98.1 F 98.1 F Temperature Source Temporal Temporal Pulse Rate 89 89 94 Respiratory Rate 15 15 18 Blood Pressure 158/106 H 158/106 H 175/91 H Blood Pressure Mean 123 123 119 Pulse Ox 94 94 99 Oxygen Delivery Method Room Air Room Air Room Air 02/23/21 20:34 02/23/21 21:34 02/23/21 22:00 Temperature 98.1 F 98 F 98 F Temperature Source Temporal Oral Oral Pulse Rate 94 92 90 Respiratory Rate 18 18 19 H Blood Pressure 175/91 H 179/93 H 162/100 H Blood Pressure Mean 119 121 120 Pulse Ox 99 99 99 Oxygen Delivery Method Room Air Room Air Room Air 02/23/21 23:00 Temperature 98 F Temperature Source Oral Pulse Rate 86 Respiratory Rate 18 Blood Pressure 159/71 H Blood Pressure Mean 100 Pulse Ox 98 Oxygen Delivery Method Room Air Physical Exam Narrative Physical Examination: General: awake, alert, oriented x 3 and cooperative, seated upright in the ED bed, fatigued appearing. Skin: normal color, normal turgor, no icterus, no cyanosis. HEENT: AT/NC, EOMI, PERRLA, dry MM, no carotid bruits or JVD noted. Lungs: Diminished, greater bases, moderate effort, no rales, ronchi or wheezing. Heart: Regular rate and rhythm; no gallop, rub audible. Abdomen: soft, mild generalized discomfort with palpation but no rebound or guarding, mildly distended, hypoactive bowel sounds, no obvious HSM. Extremities: no cyanosis, clubbing, or edema. Neurological: patient awake, alert, oriented as noted, cognitive function appears intact; pupils equally reactive to light and accommodation, cranial nerves II-XII grossly normal, moving all 4 extremities, no focal deficits, strength severely global decrease secondary to acute presentation and complaints. Psychiatric: affect appears fatigued, no acute evidence of depressive or anxiety feelings. Lab / Micro Data Result Diagrams: 02/23/21 19:30 02/23/21 19:30 Labs: Laboratory Results - last 24 hr 02/23/21 02/23/21 02/23/21 19:30 19:30 19:30 WBC 6.4 RBC 4.52 L Hgb 14.1 Hct 42.4 MCV 93.8 MCH 31.2 MCHC 33.3 RDW Std Deviation 42.4 RDW Coeff of Boni 12.3 Plt Count 210 MPV 11.0 Immature Gran % (Auto) 0.900 Neut % (Auto) 63.7 Lymph % (Auto) 21.7 [place] % (Auto) 9.8 Eos % (Auto) 3.3 Baso % (Auto) 0.6 Absolute Neuts (auto) 4.1 Absolute Lymphs (auto) 1.40 Nucleated RBC % 0 Sodium 143 Potassium 3.2 L Chloride 108 H Carbon Dioxide 29.0 Anion Gap 6 BUN 21 H Creatinine 1.07 Estim Creat Clear Calc 58.29 Est GFR (MDRD) Af Amer 87 Est GFR (MDRD) Non-Af 72 BUN/Creatinine Ratio 19.6 Glucose 87 Lactic Acid 0.8 Calcium 9.1 Total Bilirubin 0.80 AST 15 ALT < 6 L Alkaline Phosphatase 85 Total Protein 7.8 Albumin 3.6 Globulin 4.2 Albumin/Globulin Ratio 0.9 Urine Color Urine Clarity Urine pH Ur Specific [place] Urine Protein Urine Glucose (UA) Urine Ketones Urine Occult Blood Urine Nitrite Urine Bilirubin Urine Urobilinogen Ur Leukocyte Esterase Urine RBC Urine WBC Ur Squamous Epith Cells Urine Bacteria Urine Mucus 02/23/21 21:49 WBC RBC Hgb Hct MCV MCH MCHC RDW Std Deviation RDW Coeff of Boni Plt Count MPV Immature Gran % (Auto) Neut % (Auto) Lymph % (Auto) [place] % (Auto) Eos % (Auto) Baso % (Auto) Absolute Neuts (auto) Absolute Lymphs (auto) Nucleated RBC % Sodium Potassium Chloride Carbon Dioxide Anion Gap BUN Creatinine Estim Creat Clear Calc Est GFR (MDRD) Af Amer Est GFR (MDRD) Non-Af BUN/Creatinine Ratio Glucose Lactic Acid Calcium Total Bilirubin AST ALT Alkaline Phosphatase Total Protein Albumin Globulin Albumin/Globulin Ratio Urine Color Yellow Urine Clarity Clear Urine pH 7.0 Ur Specific [place] 1.010 Urine Protein Negative Urine Glucose (UA) Normal Urine Ketones Negative Urine Occult Blood 10 H Urine Nitrite Negative Urine Bilirubin Negative Urine Urobilinogen Normal Ur Leukocyte Esterase Negative Urine RBC 0-5 SEEN Urine WBC 0 SEEN Ur Squamous Epith Cells 0-5 SEEN Urine Bacteria 0 SEEN Urine Mucus 0 SEEN Micro: Microbiology 02/23/21 19:40 SARS-CoV-2 Antigen (Rapid) - Final Mucosa - Nose Radiology Impression Chest X-Ray 02/23/21 19:34 IMPRESSION: There are findings consistent with COPD. There is no evidence of acute chest disease. Electronically Signed: Shawn Tenorio MD at 20:56 EDT , Service support , Abdomen/Pelvis CT 02/23/21 20:48 IMPRESSION: Worsening of the extrahepatic and pancreatic ductal distention. Further evaluation recommended as above. Possible nonspecific colitis and/or colonic ileus. Infrarenal aortic aneurysm has increased from 3 cm to 4.5 cm. Electronically Signed: Shawn Tenorio MD at 21:35 EDT , Service support , Assessment & Plan Assessment/Plan (1) Colitis: PLAN: The patient is a 75 y/o M w/ PMHx: BPH, Parkinson's disease, Former Tobacco use, Raynaud's disease, Known AAA, CAD, IBS, COPD who presents to the [facility] ED on 02/23/21 with history of onset significant abdominal cramping with ongoing intractable copious loose watery diarrhea x 5 days with significant associated weakness, malaise with no recent fevers or chills prompting eventual ED presentation especially following being found by his family on day of presentation on the ground with inability to move secondary to the severity of his weakness. 1. Acute colitis with intractable diarrhea, abdominal cramping: CT A/P w/ evidence of colitis versus colonic ileus. Will admit to medical surgical floor, maintain on hydration, monitor I&Os, will allow clears, will request C. difficile and enteric pathogens however in the interim will treat with zosyn regimen, maintain on Protonix, anti-emetics, pain regimen PRN. Consider diet advancement to clears in AM if clinically improved. If stool cultures and C. difficile are negative will plan to initiate antidiarrheal regimen if ongoing diarrhea. 2. Hypokalemia: Admission K+ 3.2, magnesium level requested, supplementation given, repeat level in AM. 3. Elevated BP without hypertensive diagnosis: Patient BP notably elevated upon ED presentation, possibly pain related, not on regimen outpatient, will continue to monitor and if elevated recommend addition and given underlying Raynaud's disease would consider calcium channel teto as initial treatment, as needed IV hydralazine in interim. 4. Incidental increasing extrahepatic and pancreatic ductal distention: Unclear specific etiology, suspect unrelated to acute presentation, may consider general surgery evaluation of imaging if felt appropriate. 5. Infrarenal aortic aneurysm: Known history, increased from 3 to 4.5 cm on imaging with last noted 11/17/2018 abdominal ultrasound noting aneurysmal dilatation of approximately 7 cm length segment of distal infrarenal abdominal aorta measuring 3.1 x 3.6 cm at that time. Will need continued close follow-up with Dr. Marques. 6. Parkinson's disease: We will continue patient Sinemet as well as pimavanserin home regimen, maintain on fall precautions, PT, OT, case management consultations for discharge planning. 7. CAD: Nonobstructive, continue aspirin therapy, not on hypertensive regimen nor statin therapy, continue cardiology evaluation outpatient. 8. Chronic COPD: Not on regimen routinely per current list, as needed albuterol, encourage head of bed and I-S usage. 9. Former tobacco use: Encourage continued tobacco cessation. 10. Raynaud's disease: Patient not on any calcium channel teto, continued on aspirin, encourage continued tobacco cessation. 11. DVT prophylaxis: SCDs, Lovenox. 12. CODE status: Patient MARIUSZ is his and living will is not currently in place he notes. Discussed CODE status at length including difference between FULL code, DNR-CCA and DNR-CC status. Following discussions about the differences in these status, requested Full Code status. Advanced Care Planning Face to Face Time: 16 minutes. Visit Charges OBSV E&M: 76852 Initial observation care L3 Procedures Hospitalists Procedures: 67320 Advncd Care Plan 30 Min
[2021-02-24] VITALS (10 sets, daily range): BP systolic 115–173; BP diastolic 77–109; PULSE 76–97; RESP 16–18; TEMP 36.6–37.1; O2SAT 94–98
[2021-02-24] MEDS: 0.9% Normal Saline 1,000 ML 100 ML IV ×2 (01:07→11:12)
[2021-02-24] MEDS: Potassium Chloride Oral Tablet 20 MEQ 40 MEQ PO (01:08)
[2021-02-24] MEDS: hydrALAZINE 20 MG/ML Vial 10 MG IV (01:23)
[2021-02-24 04:47] LABS: Absolute Lymphocyte Count 1.24 X10^3/uL (0.83-4.51); Absolute Neutrophil Count 5.6 X10^3/uL (2.0-7.7); Basophil# 0.05 X10^3/uL; Basophil% 0.7 % (0-1); Eosinophils% 1.3 % (0-5); Hematocrit 38.2 % (40-54); Hemoglobin 12.9 g/dL (13.0-16.5); Lymphocyte # 1.24 X10^3/ul (0.83-4.51); Lymphocyte % 16.4 % (19-41); Mean Corp Hgb Conc 33.8 g/dL (32-36); Mean Corpuscular Hgb 31.2 pg (27.0-32.0); Mean Corpuscular Volume 92.5 fL (80-94); Mean Platelet Vol. 10.6 fl (6.2-12.0); Monocyte# 0.53 X10^3/uL; NRBC Flagged by Analyzer 0 % (0-5); Neutrophil # 5.58 X10^3/uL (2.7-7.7); Neutrophil % 73.8 % (47-70); Platelet Count 187 K/mm3 (150-450); RBC Distribution Width CV 12.5 % (11.6-14.6); RBC Distribution Width SD 42.4 fl (35.1-43.9); Red Blood Count 4.13 M/mm3 (4.6-6.2); White Blood Count 7.6 K/mm3 (4.4-11.0)
[2021-02-24 05:22] LABS: ALB/GLOB Ratio 0.9 RATIO (0.9-2.4); AST(SGOT) 12 U/L (15-37); Alanine Aminotransfer ALT/SGPT 10 U/L (16-61); Albumin, Serum 3.2 g/dL (3.2-5.0); Alkaline Phosphatase 77 U/L (45-117); Anion Gap 5 (5-15); BUN 14 mg/dL (7-18); BUN/Creat Ratio 15.2 RATIO (10-20); Calcium,Total 8.3 mg/dL (8.5-10.1); Chloride 110 mmol/L (98-107); Creatinine, Serum 0.92 mg/dL (0.70-1.30); EST Glomerular Filtration Rate 85 mL/min (>60); Est Glom Filt Rate - Afr Amer 103 mL/min (>60); Estimated Creatinine Clearance 62.97 ml/min; Globulin 3.7 g/dL (2.2-4.2); Glucose 84 mg/dL (74-106); Potassium 3.4 mmol/L (3.5-5.1); Protein, Total 6.9 g/dL (6.4-8.2); Sodium Level 142 mmol/L (136-145)
[2021-02-24] MEDS: 0.9% Saline Lock 10 ML Syringe IV (05:40)
[2021-02-24] MEDS: Ipratropium/Albuterol Sulfate 3 ML AMPUL.NEB INHALATION ×2 (07:03→12:47)
[2021-02-24] MEDS: Enoxaparin 40 MG/0.4 ML Syringe SC (08:57)
[2021-02-24] MEDS: Pantoprazole Sodium 20 MG Tablet PO (08:57)
[2021-02-24] MEDS: Aspirin 81 MG TAB.CHEW PO (11:45)
[2021-02-24] MEDS: oxyCODONE 5 MG Tablet PO (11:45)
[2021-02-24] MEDS: CARBIDOPA/LEVODOPA CR 50/200 Tablet PO ×2 (11:46→16:22)
--- NOTE | 2021-02-24 18:17 | PCM.PN.HOSP ---
Subjective Subjective Patient was seen and examined today, nursing stated that he had one episode of diarrhea today and did not complain of any abdominal pain. Patient appears confused to this examiner, he has a history of Parkinson's disease and I am unsure whether he has parkinsonian dementia. I am going to give his a call and find out what is normal mental status is. Objective Data Objective Data Vital Signs: Vital Signs Temp Pulse Resp BP Pulse Ox 98.3 F 90 16 140/80 H 94 02/24/21 14:00 02/24/21 14:00 02/24/21 14:00 02/24/21 14:00 02/24/21 14:00 Oxygen Delivery Method Room Air Weight: 66.587 kg Body Mass Index (BMI) 20.0 Intake & Output: Intake and Output for Last 24 Hours 02/22/21 02/23/21 02/24/21 23:59 23:59 23:59 Intake Total 1100 / 1100 2232.50 / 2232.50 Output Total 125 / 125 Balance 1100 / 1100 2107.50 / 2107.50 Lab / Micro Data Result Diagrams: 02/24/21 04:20 02/24/21 04:20 Labs: Laboratory Results - last 24 hr 02/23/21 02/23/21 02/23/21 19:30 19:30 19:30 WBC 6.4 RBC 4.52 L Hgb 14.1 Hct 42.4 MCV 93.8 MCH 31.2 MCHC 33.3 RDW Std Deviation 42.4 RDW Coeff of Boni 12.3 Plt Count 210 MPV 11.0 Immature Gran % (Auto) 0.900 Neut % (Auto) 63.7 Lymph % (Auto) 21.7 [place] % (Auto) 9.8 Eos % (Auto) 3.3 Baso % (Auto) 0.6 Absolute Neuts (auto) 4.1 Absolute Lymphs (auto) 1.40 Nucleated RBC % 0 Sodium 143 Potassium 3.2 L Chloride 108 H Carbon Dioxide 29.0 Anion Gap 6 BUN 21 H Creatinine 1.07 Estim Creat Clear Calc 58.29 Est GFR (MDRD) Af Amer 87 Est GFR (MDRD) Non-Af 72 BUN/Creatinine Ratio 19.6 Glucose 87 Lactic Acid 0.8 Calcium 9.1 Total Bilirubin 0.80 AST 15 ALT < 6 L Alkaline Phosphatase 85 Total Protein 7.8 Albumin 3.6 Globulin 4.2 Albumin/Globulin Ratio 0.9 Urine Color Urine Clarity Urine pH Ur Specific [place] Urine Protein Urine Glucose (UA) Urine Ketones Urine Occult Blood Urine Nitrite Urine Bilirubin Urine Urobilinogen Ur Leukocyte Esterase Urine RBC Urine WBC Ur Squamous Epith Cells Urine Bacteria Urine Mucus 02/23/21 02/24/21 02/24/21 21:49 04:20 04:20 WBC 7.6 RBC 4.13 L Hgb 12.9 L Hct 38.2 L MCV 92.5 MCH 31.2 MCHC 33.8 RDW Std Deviation 42.4 RDW Coeff of Boni 12.5 Plt Count 187 MPV 10.6 Immature Gran % (Auto) 0.800 Neut % (Auto) 73.8 H Lymph % (Auto) 16.4 L [place] % (Auto) 7.0 Eos % (Auto) 1.3 Baso % (Auto) 0.7 Absolute Neuts (auto) 5.6 Absolute Lymphs (auto) 1.24 Nucleated RBC % 0 Sodium 142 Potassium 3.4 L Chloride 110 H Carbon Dioxide 27.0 Anion Gap 5 BUN 14 Creatinine 0.92 Estim Creat Clear Calc 62.97 Est GFR (MDRD) Af Amer 103 Est GFR (MDRD) Non-Af 85 BUN/Creatinine Ratio 15.2 Glucose 84 Lactic Acid Calcium 8.3 L Total Bilirubin 0.50 AST 12 L ALT 10 L Alkaline Phosphatase 77 Total Protein 6.9 Albumin 3.2 Globulin 3.7 Albumin/Globulin Ratio 0.9 Urine Color Yellow Urine Clarity Clear Urine pH 7.0 Ur Specific [place] 1.010 Urine Protein Negative Urine Glucose (UA) Normal Urine Ketones Negative Urine Occult Blood 10 H Urine Nitrite Negative Urine Bilirubin Negative Urine Urobilinogen Normal Ur Leukocyte Esterase Negative Urine RBC 0-5 SEEN Urine WBC 0 SEEN Ur Squamous Epith Cells 0-5 SEEN Urine Bacteria 0 SEEN Urine Mucus 0 SEEN Micro: Microbiology 02/24/21 10:35 Stool Enteric Bacteriology - Final 02/24/21 10:35 Stool C. difficile DNA Amplification - Final 02/23/21 19:40 Mucosa - Nose SARS-CoV-2 Antigen (Rapid) - Final Radiography Diagnostic Testing: Radiology Impression Chest X-Ray 02/23/21 19:34 IMPRESSION: There are findings consistent with COPD. There is no evidence of acute chest disease. Electronically Signed: Shawn Tenorio MD at 20:56 EDT , Service support , Abdomen/Pelvis CT 02/23/21 20:48 IMPRESSION: Worsening of the extrahepatic and pancreatic ductal distention. Further evaluation recommended as above. Possible nonspecific colitis and/or colonic ileus. Infrarenal aortic aneurysm has increased from 3 cm to 4.5 cm. Electronically Signed: Shawn Tenorio MD at 21:35 EDT , Service support , Physical Exam Const alert, no apparent distress and average body habitus HEENT head/scalp atraumatic, moist oral mucous membranes and oropharynx normal Head and Scalp: normocephalic Eyes PERRL, EOMs intact bilaterally and conjunctivae normal Resp normal respiratory effort, no retractions, no use of accessory muscles and clear to auscultation bilaterally Cardio regular rate, regular rhythm, S1 normal heart sound, S2 normal heart sound, no gallops and no clicks GI normal to inspection, nondistended, normoactive bowel sounds, soft to palpation, non-tender and non-distended Extremity normal to inspection and no clubbing, cyanosis or edema Skin no rashes or lesions noted, no wounds and skin turgor normal Neuro CN's II-XII intact bilaterally, no focal motor deficits and no sensory deficits noted Sensorium / Orientation: awake and alert Psych Psych Narrative: Patient has flat affect, he is confused and not able to carry on a conversation, he does not appear to be oriented Assessment & Plan Assessment/Plan (1) Parkinson's disease: PLAN: 1. Colitis-etiology unclear at this point, patient C. 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
[2021-02-24] MEDS: Haloperidol Lactate 5 MG/ML Vial 1 MG IM (21:29)
--- NOTE | 2021-02-24 21:42 | NURSING ---
Pt was found standing in the doorway to his room with a blanket around him with his bed exit going off. Pt was returned to bed but refused to lay down and would only sit on the edge of the bed. At one point, he grabbed the wrist of Carleen REYNOLDS. Teddy MELVIN was called and pt was intermittently combative, swinging and kicking at staff. I called his Jennifer and had her talk to him also. She said he sometimes thinks people are trying to kill him...even her. Pt refused Seroquel. Did get IM Haldol. Teddy MELVIN sitting in room with pt at this time for safety.
[2021-02-24] MEDS: LORazepam 2 MG/ML Syringe 0.5 MG IV (22:39)
[2021-02-25 02:16] VITALS: BP 136/82; PULSE 68; RESP 18; TEMP 37; O2SAT 98
[2021-02-25] MEDS: 0.9% Normal Saline 1,000 ML 100 ML IV (05:35)
[2021-02-25] MEDS: 0.9% Saline Lock 10 ML Syringe IV (05:35)
[2021-02-25] MEDS: Menthol/Lanolin/Calamine/Znox 113 GM Tube 1 APPLIC TOPICAL ×3 (05:35→22:04)
[2021-02-25 07:33] VITALS: O2SAT 96
[2021-02-25 08:15] VITALS: BP 125/74; PULSE 67; RESP 18; TEMP 36.8; O2SAT 98
[2021-02-25] MEDS: Aspirin 81 MG TAB.CHEW PO (11:11)
[2021-02-25] MEDS: Carbidopa/Levodopa 25/100 Tablet PO ×3 (11:11→15:57)
[2021-02-25] MEDS: Enoxaparin 40 MG/0.4 ML Syringe SC (11:13)
[2021-02-25] MEDS: CARBIDOPA/LEVODOPA CR 50/200 Tablet PO ×2 (11:13→15:58)
[2021-02-25] MEDS: Pantoprazole Sodium 20 MG Tablet PO ×2 (11:34→22:07)
--- NOTE | 2021-02-25 11:47 | PCM.DC ---
Discharge Instructions Diet Discharge Diet: No restrictions Activity Discharge Activity: Return to Normal Activity Weight Bearing Status: Weight bearing as tolerated Follow Up Care Test Results: Test results from this visit will be discussed in further detail at your follow-up appointment, if applicable. Discharge Plan Admission Admit Date/Time: 02/24/21 15:16 Primary Reason for Your Visit: diarrhea, colitis Attending Provider: Maicol Laura Primary Care Provider: Casper Do Discharge Orders/Prescriptions Prescriptions: New metronidazole [Flagyl] 500 mg tablet 500 mg PO TID Qty: 21 RF: 0 Continued (DME) walker Qty: 1 RF: 0 carbidopa-levodopa 1 TABLET tablet extended release 1 tab PO BID RF: 0 aspirin 81 mg Tablet 81 mg PO DAILY RF: 0 quetiapine 25 mg tablet 25 mg PO QHS RF: 0 tamsulosin 0.4 mg capsule 0.4 mg PO QHS RF: 0 carbidopa-levodopa [Sinemet] 25-100 mg Tablet 1 tab PO TIDCM RF: 0 (DME) hospital bed Qty: 1 RF: 0 (DME) hospital bed Qty: 1 RF: 0 tramadol 50 mg tablet 50 mg PO Q6H MDD 5 a day PRN (Reason: pain) Qty: 150 RF: 0 Referrals / Follow Up: Casper Do DO [Primary Care Provider] - Within 2 Weeks Disposition Disposition (needs filled in before D/C Order can be placed): Home, self care
--- NOTE | 2021-02-25 14:10 | CASEMGMT ---
RN ARIADNA WIRE PHOTO OPERATOR ARIADNA to room to meet with patient and for initial transition planning/care coordination assessment. RODOLFO ROSENTHAL introduced self and role at [facility].? Pt resting in bed in no distress at this time.? Pt w/dementia @ baseline.? @ bedside and provided the following information? Care providers, pharmacy, and demographics verified/updated at this time. PCP: Dr Casper Do Specialists: Dr Tejeda--neurologist Preferred Pharmacy: [facility] in [place] Insurance: [facility], AARP Prescription Benefit:? Yes Living Will/HPOA:? Pt does not currently have LW/HCPOA LNOK: Jennifer Living Arrangements: Lives w/his , Jennifer, in 2-story home. FFSU. No steps to enter. states pt able to mostly bath/dress himself ( assists as needed) and is able to feed self. manages IADL's, medications, and appts. Transportation: DME: ?Has the following DME:? shower chair, BSC, rails/grab bars, hand held shower, walker ? denies need for further DME at this time.? HHC/SNF: No history of either. OT eval has been completed and SNF is recommended. /pt made aware. states is interested in pt going to TCU and pt is agreeable. Darby FLORES, made aware. PT eval pending. PLAN: ?SNF. Pt/ interested in TCU. Raj COELLO RN, CM
--- NOTE | 2021-02-25 14:23 | PN.HOSP_ITS ---
Subjective Subjective Patient was seen and examined today, he does not carry on a conversation with this examiner, he is somnolent, he does not appear in any distress. His came in today and told nursing that he felt that the patient should be placed short-term in a [place] [facility] facility for rehab services rather than be discharged home. Patient is having no diarrhea at this point. Objective Data Objective Data Vital Signs: Vital Signs Temp Pulse Resp BP Pulse Ox 98.3 F 67 18 125/74 H 98 02/25/21 08:15 02/25/21 08:15 02/25/21 08:15 02/25/21 08:15 02/25/21 08:15 Oxygen Delivery Method Room Air Weight: 63 kg Body Mass Index (BMI) 20.0 Intake & Output: Intake and Output for Last 24 Hours 02/23/21 02/24/21 02/25/21 23:59 23:59 23:59 Intake Total 1100 / 1100 2817.50 / 2817.50 188.34 / 188.34 Output Total 125 / 125 Balance 1100 / 1100 2692.50 / 2692.50 188.34 / 188.34 Lab / Micro Data Result Diagrams: 02/24/21 04:20 02/24/21 04:20 Micro: Microbiology 02/24/21 10:35 Stool Enteric Bacteriology - Final 02/24/21 10:35 Stool C. difficile DNA Amplification - Final 02/23/21 19:40 Mucosa - Nose SARS-CoV-2 Antigen (Rapid) - Final Physical Exam Const no apparent distress Orientation / Consciousness: lethargic Nutritional Appearance: cachectic HEENT head/scalp atraumatic, moist oral mucous membranes and oropharynx normal Head and Scalp: normocephalic Eyes PERRL, EOMs intact bilaterally and conjunctivae normal Neck no lymphadenopathy, supple and no JVD Resp normal respiratory effort, no retractions, no use of accessory muscles and clear to auscultation bilaterally Cardio regular rate, regular rhythm, S1 normal heart sound, S2 normal heart sound, no gallops and no clicks GI normal to inspection, nondistended, normoactive bowel sounds, soft to palpation, non-tender and non-distended Extremity normal to inspection and no clubbing, cyanosis or edema Skin no rashes or lesions noted, no wounds and skin turgor normal Neuro CN's II-XII intact bilaterally, no focal motor deficits and no sensory deficits noted Psych Psych Narrative: Patient has a flat affect, he is not able to carry on a conve rsation with this examiner. Assessment & Plan Assessment/Plan (1) Colitis: PLAN: 1.? 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 Visit Charges Inpatient E&M: 70679 Subs Hosp L2
[2021-02-25 15:00] VITALS: BP 97/73; PULSE 102; RESP 18; TEMP 36.5; O2SAT 99
[2021-02-25] MEDS: Amox/Clavulanate 875 MG Tablet PO (15:57)
--- NOTE | 2021-02-25 16:12 | CASEMGMT ---
SANDRA Note: Reason for Referral: SNF placement Referral Source: ARIADNA FLORES received update that PT/OT reports patient needs SNF at discharge. CM reports that patient and expressed interest in TCU. SANDRA met with patient and and provided them handout of SNF's. Patient's said that patient will stay till Saturday but if he doesn't get placed I am going to take him home. SANDRA spoke to Dora in TCU. Advised that patient could be discharged today and she indicated patient could go to TCU today. SANDRA spoke to Dora. She advised that since patient had Haldol yesterday he can not go today to TCU. However he has to be haldol free for 24 hours prior to going to TCU. SANDRA updated and advised patient can not go to TCU today. Advised that if he is haldol free and appropriate for the program he may be admitted tomorrow. automobile washer steam updated. Green sheet placed on chart. Plan: TCU if appropriate Darby CORMIER
[2021-02-25 21:00] VITALS: BP 99/63; PULSE 75; RESP 16; TEMP 36.6; O2SAT 95
[2021-02-25] MEDS: Tamsulosin HCl 0.4 MG Capsule PO (22:05)
[2021-02-25] MEDS: QUEtiapine 25 MG Tablet 50 MG PO (22:06)
[2021-02-26 02:57] VITALS: BP 129/78; PULSE 81; RESP 16; TEMP 36.6; O2SAT 96
[2021-02-26] MEDS: Acetaminophen 325 MG Tablet 650 MG PO (03:00)
[2021-02-26] MEDS: Carbidopa/Levodopa 25/100 Tablet PO ×2 (06:25→11:59)
[2021-02-26] MEDS: Menthol/Lanolin/Calamine/Znox 113 GM Tube 1 APPLIC TOPICAL ×2 (06:26→12:00)
[2021-02-26] MEDS: CARBIDOPA/LEVODOPA CR 50/200 Tablet PO (06:29)
[2021-02-26 07:00] VITALS: O2SAT 96
--- NOTE | 2021-02-26 08:49 | NURSING ---
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 Original Note: MESSAGE LEFT FOR COKE HANDLING SUPERVISOR TOMMY, ALSO TALKED WITH PAO TCU CHG RN, AFTER THIS NURSE TALKED WITH DR. BREWER. DR. BREWER VERBALIZED HE WAS AWARE THAT PER BROOK FROM ADMISSIONS/TCU SHE HAD TALKED WITH BIENVENIDO TCU RETAIL MANAGEMENT TRAINEE 02/25 WHO WANTED TO WAIT UNTIL SATURDAY FOR ADMISSION. DR. BREWER VERBALIZED THAT HE HAD TALKED WITH DR. WASHINGTON WHO STATES HE IS OK WITH PATIENT BEING DISCHARGED TO TCU TODAY. PAO AND TOMMY INFORMED OF THIS. AWAITING RETURN CALL FROM PAO WHO STATES WILL TALK WITH [facility] TCU RETAIL MANAGEMENT TRAINEE.
[2021-02-26] MEDS: Amox/Clavulanate 875 MG Tablet PO (08:57)
[2021-02-26] MEDS: Enoxaparin 40 MG/0.4 ML Syringe SC (09:01)
[2021-02-26] MEDS: Aspirin 81 MG TAB.CHEW PO (09:01)
[2021-02-26] MEDS: Pantoprazole Sodium 20 MG Tablet PO (09:01)
[2021-02-26 09:13] VITALS: BP 129/73; PULSE 76; RESP 18; TEMP 36.7; O2SAT 99
--- NOTE | 2021-02-26 09:14 | TREXTCAR_ITS ---
Diet 02/25/21 08:56 Diet: Regular - General Type of Dietary Supplement:: Ensure Pudding Is pt able to select menu?: No Diet Comments: 240ml ensure enlive w/ breakfast and ensure pudding BID w/ lunch & dinner Routine Orders/Code Status Code Status: Full Code Therapies Weight Bearing: Full weight bearing Physical Therapy: Eval and Treat Occupational Therapy: Eval and Treat Problem/Diagnosis (1) Colitis: Status: Acute (2) Parkinson's disease: Status: Chronic (3) Atherosclerotic heart disease of [place] coronary artery without angina pectoris: Status: Chronic Comment: 50% LAD stenosis based on heart cath 2011 (4) Generalized weakness: Status: Acute (5) COLD (chronic obstructive lung disease): Status: Chronic Allergies/Procedures Done in Hospital Allergies pregabalin [From Lyrica] Adverse Reaction (Severe, Verified 12/07/20 14:24) hallucinations Procedures: None Type of Care/Length of Stay Estimated LOS: Convalescent Care Less Than 30 days Type of Care Needed: Skilled Rehab Potential: Good Prognosis: Good Additional Orders/Day of Discharge H&P will serve as current which was dated: 02/23/21 Day of Discharge: 02/26/21 Dietary and Speech Recommendations Dietitian Recommendations/Changes: Will add 240 ml ensure enlive w/ breakfast and ensure pudding BID w/ lunch and dinner. Continue regular diet as indicated and PO established. Discharge Plan Admission Admit Date/Time: 02/24/21 15:16 Primary Reason for Your Visit: diarrhea, colitis Attending Provider: Maicol Laura Primary Care Provider: Casper Do Instructions Additional Instructions / Restrictions: Continue Flagyl 500 mg 3 times a day x1 week Discharge Orders/Prescriptions Prescriptions: New metronidazole [Flagyl] 500 mg tablet 500 mg PO TID Qty: 21 RF: 0 quetiapine 25 mg Tablet 50 mg PO QHS Qty: 1 RF: 0 acetaminophen [Tylenol] 325 mg Tablet 650 mg PO Q4H PRN PRN (Reason: Fever, pain 1-07/16) Qty: 0 RF: 0 Continued (DME) walker Qty: 1 RF: 0 carbidopa-levodopa 1 TABLET tablet extended release 1 tab PO BID RF: 0 aspirin 81 mg Tablet 81 mg PO DAILY RF: 0 tamsulosin 0.4 mg capsule 0.4 mg PO QHS RF: 0 carbidopa-levodopa [Sinemet] 25-100 mg Tablet 1 tab PO TIDCM RF: 0 (DME) hospital bed Qty: 1 RF: 0 (DME) hospital bed Qty: 1 RF: 0 tramadol 50 mg tablet 50 mg PO Q6H MDD 5 a day PRN (Reason: pain) Qty: 150 RF: 0 Discontinued quetiapine 25 mg tablet 25 mg PO QHS RF: 0 Referrals / Follow Up: Casper Do DO [Primary Care Provider] - Within 2 Weeks Disposition Disposition (needs filled in before D/C Order can be placed): [facility]
[2021-02-26 13:51] VITALS: BP 125/70; PULSE 78; RESP 18; TEMP 36.7; O2SAT 98
--- NOTE | 2021-02-26 14:44 | DS.PCM_ITS ---
Providers Date of Admission: 02/24/21 Date of Discharge: 02/26/21 Primary Care Physician: Dr. Casper Do, DO Reason For Visit: COLITIS, DIARRHEA Diagnosis Discharge Diagnosis (1) Colitis: Status: Acute Code(s): K52.9 - Noninfective gastroenteritis and colitis, unspecified (2) Parkinson's disease: Status: Chronic Code(s): G20 - Parkinson's disease (3) Atherosclerotic heart disease of [place] coronary artery without angina pectoris: Status: Chronic Code(s): I25.10 - Atherosclerotic heart disease of [place] coronary artery without angina pectoris Qualifiers: [place] vs. transplanted heart: [place] heart Qualified Code(s): I25.10 - Atherosclerotic heart disease of [place] coronary artery without angina pectoris (4) Generalized weakness: Status: Acute Code(s): R53.1 - Weakness (5) COLD (chronic obstructive lung disease): Status: Chronic Code(s): J44.9 - Chronic obstructive pulmonary disease, unspecified Plan: ?1.? 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 Parkinson dementia #4 chronic obstructive pulmonary disease #5 atherosclerotic heart disease #6 BPH #7 generalized debility Medications at Discharge Home Medications carbidopa-levodopa 1 tab PO BID 06/06/19 hospital bed #1 ea 02/23/20 hospital bed #1 ea 02/23/20 walker #1 ea 04/14/20 tramadol 50 mg tablet 50 mg PO Q6H PRN #150 tab MDD 5 a day 01/31/21 aspirin 81 mg PO DAILY 02/24/21 carbidopa-levodopa [Sinemet] 1 tab PO TIDCM 02/24/21 tamsulosin 0.4 mg PO QHS 02/24/21 metronidazole [Flagyl] 500 mg PO TID #21 tab 02/25/21 acetaminophen [Tylenol] 650 mg PO Q4H PRN PRN #0 tab 02/26/21 quetiapine 50 mg PO QHS #1 tab 02/26/21 Hospital Course Operations None Procedures None Summary of Care Provided Minutes Spent on Discharge: 32 Hospital Course: This 75-year-old white male was brought into the emergency room at [facility] with a chief complaint of diarrhea, work-up in the emergency room included a CT of the abdomen and pelvis which indicated the presence of probable colitis. Patient was admitted to MedSurg 3, given IV antibiotics, and his home medications were continued. Patient had an episode of confusion and agitation 1 night while on MedSurg 3 but otherwise did not have additional episodes of agitation. Patient was seen by PT and OT. The work-up for the patient's colitis was unremarkable, the exact etiology was unknown. Due to generalized debility, patient's and the patient requested a short inpatient stay at a rehab facility-TCU was willing to take the patient. On 02/26/2021, patient was seen and examined: On examination he appeared older than his stated age, he was in no distress, he appeared lethargic. Vital signs as documented. Skin warm and dry and without overt rashes. Neck without JVD, neck was supple, trachea midline, thyroid was normal. Lungs clear bilaterally, normal air movement was noted. Heart exam notable for regular rhythm, normal sounds and absence of murmurs, rubs or gallops. Abdomen unremarkable and without evidence of organomegaly, masses, or abdominal aortic enlargement. Bowel sounds are present, abdomen is not distended. Extremities nonedematous, no cyanosis was noted, no clubbing was noted. Neuro: Cranial nerves II through XII are grossly intact, no focal motor deficits were noted, sensation to light touch and pinprick intact, motor exam 5/5 throughout. Psych: Patient is alert and oriented x3, he does not appear anxious or depressed, he does not appear agitated. On 02/26/2021, patient was seen and examined and felt to be stable for transfer to TCU for short term inpatient rehab services. ABG / Lab / Microbiology Data Result Diagrams: 02/24/21 04:20 02/24/21 04:20 Microbiology: Microbiology 02/24/21 10:35 Stool Enteric Bacteriology - Final 02/24/21 10:35 Stool C. difficile DNA Amplification - Final 02/23/21 19:40 Mucosa - Nose SARS-CoV-2 Antigen (Rapid) - Final D/C Instructions Discharge Diet: No restrictions Discharge Activity: Return to Normal Activity Weight Bearing Status: Weight bearing as tolerated Meaningful Use Info Meaningful Use Diagnoses (Choose all that apply): None applicable Discharge Plan Admission Admit Date/Time: 02/24/21 15:16 Primary Reason for Your Visit: diarrhea, colitis Attending Provider: Maicol Laura Primary Care Provider: Casper Do Instructions Additional Instructions / Restrictions: Continue Flagyl 500 mg 3 times a day x1 week Discharge Orders/Prescriptions Prescriptions: New metronidazole [Flagyl] 500 mg tablet 500 mg PO TID Qty: 21 RF: 0 quetiapine 25 mg Tablet 50 mg PO QHS Qty: 1 RF: 0 acetaminophen [Tylenol] 325 mg Tablet 650 mg PO Q4H PRN PRN (Reason: Fever, pain 1-07/16) Qty: 0 RF: 0 Continued (DME) walker Qty: 1 RF: 0 carbidopa-levodopa 1 TABLET tablet extended release 1 tab PO BID RF: 0 aspirin 81 mg Tablet 81 mg PO DAILY RF: 0 tamsulosin 0.4 mg capsule 0.4 mg PO QHS RF: 0 carbidopa-levodopa [Sinemet] 25-100 mg Tablet 1 tab PO TIDCM RF: 0 (DME) hospital bed Qty: 1 RF: 0 (DME) hospital bed Qty: 1 RF: 0 tramadol 50 mg tablet 50 mg PO Q6H MDD 5 a day PRN (Reason: pain) Qty: 150 RF: 0 Discontinued quetiapine 25 mg tablet 25 mg PO QHS RF: 0 Referrals / Follow Up: Casper Do, [Primary Care Provider] - Within 2 Weeks Disposition Disposition (needs filled in before D/C Order can be placed): [facility] Visit Charges Inpatient E&M: 92381 Disch Hosp
== END 2021-02-26 15:29 | DRG 392 ==
LOC: ED 22:19 → MS3 02-24 00:07
PROVIDERS: Admitting Provider Family Medicine; Emergency Provider Emergency Medicine; PCP Family Medicine; Visit Provider Internal Medicine
DX: K52.9 Noninfective gastroenteritis and colitis, unspecified (principal); G20 Parkinson's disease; I25.10 Atherosclerotic heart disease of native coronary artery without angina pectoris; J44.9 Chronic obstructive pulmonary disease, unspecified; F02.80 Dementia in other diseases classified elsewhere, unspecified severity, without behavioral disturbance, psychotic disturbance, mood disturbance, and anxiety; N40.0 Benign prostatic hyperplasia without lower urinary tract symptoms; Z87.891 Personal history of nicotine dependence; I73.00 Raynaud's syndrome without gangrene; I71.4 Abdominal aortic aneurysm, without rupture; E87.6 Hypokalemia; Z66 Do not resuscitate; Z81.1 Family history of alcohol abuse and dependence; Z82.49 Family history of ischemic heart disease and other diseases of the circulatory system
CPT/HCPCS: 36415; 71045; 74177; 80053; 81001; 83605; 85025; 87426; 87493; 87506; 93005; 94640; 97110; 97116; 97162; 97166; 97530; 97535; 99251; 99284; J7030; J7050; Q9967; A4216; G0463; J2405

== ENCOUNTER 2021-02-26 15:40 | Inpatient (IN) | payer MEDICARE, OTHER, SELFPAY ==
[2021-02-26 15:54] VITALS: BP 100/66; PULSE 90; RESP 16; TEMP 36.6; O2SAT 98; BMI 19.3
--- NOTE | 2021-02-26 17:51 | PCM.HP.STD ---
HPI - General General Date of Admission: 02/26/21 HPI Narrative 02/23/2021 NIKOLAS HANSON, is a 75 Male who presents to [facility] Emergency Department with diarrhea. Weakness, shortness of breath, diarrhea. Short of breath with scant cough, watery diarrhea x 5 days. On floor due to weakness. Mild hypokalemia, Lactic acid normal. CT abdomen/pelvis showed colitis. 02/23/2021 Admit to Hospital. Zosyn IV, check stool for c. difficile for colitis/diarrhea. Hydralazine IV as needed for elevated blood pressure. 02/24/2021 Diarrhea x 1 episode, no abdominal pain. Confused. C. Diff negative, Enteric panel negative. Continue Zosyn, advance diet to full liquid diet for colitis. Haldol required for . 02/25/2021 Somnolent. Diarrhea resolved. Nursing Home Facility recommended, agrees. Transition to oral antibiotics for colitis. 02/26/2021 Admit to TCU with debility here for rehabilitation, strengthening, prior to discharge home with . [facility] Medical History Abdominal aortic aneurysm Atherosclerotic heart disease of [place] coronary artery without angina pectoris Former smoker Parkinson's disease Raynauds disease Home Medications carbidopa-levodopa 1 tab PO BID 06/06/19 [History Last Taken 02/22/21] hospital bed #1 ea 02/23/20 [History Last Taken Unknown] hospital bed #1 ea 02/23/20 [Rx Last Taken Unknown] walker #1 ea 04/14/20 [Rx Last Taken Unknown] tramadol 50 mg tablet 50 mg PO Q6H PRN #150 tab MDD 5 a day 01/31/21 [Rx Last Taken Unknown] aspirin 81 mg PO DAILY 02/24/21 [History Last Taken Unknown] carbidopa-levodopa [Sinemet] 1 tab PO TIDCM 02/24/21 [History Last Taken Unknown] tamsulosin 0.4 mg PO QHS 02/24/21 [History Last Taken 02/22/21] acetaminophen [Tylenol] 650 mg PO Q4H PRN PRN #0 tab 02/26/21 [Rx Last Taken Unknown] metronidazole [Flagyl] 500 mg PO TID 02/26/21 [History Last Taken Unknown] quetiapine 25 mg PO QHS 02/26/21 [History Last Taken Unknown] Allergy/AdvReac Type Severity Reaction Status Date / Time pregabalin [From Lyrica] AdvReac Severe hallucinati Verified 12/07/20 14:24 ons Family History (Updated 02/24/21 @ 03:[address] Delma Nunez MD) Brother Alcoholism Father Heart disease Myocardial infarction Uncle Heart disease Myocardial infarction Grandfather Heart disease Myocardial infarction Mother Heart disease Surgical History History of cataract surgery History of colonoscopy History of tonsillectomy Social History (Updated 02/26/21 @ 17:[address] Christian Burrell MD) household members: spouse Smoking Status: Former smoker how long ago did patient quit smokin alcohol intake: never substance use type: does not use what type of physical activity do you participate in: walking frequency: daily ROS Constitutional Constitutional: Denies chills, fever(s) or weight gain ENT HEENT: Denies headache(s), nasal congestion or nasal discharge Cardiovascular Cardiovascular: Denies chest pain or palpitations Respiratory/Chest Respiratory/Chest: Denies cough, excessive phlegm production or shortness of breath with exertion Gastrointestinal Gastrointestinal: Denies abdominal pain, nausea or vomiting Genitourinary Genitourinary: Denies dysuria Musculoskeletal Musculoskeletal: Denies joint pain or joint swelling Integumentary Integumentary: Denies rash or wounds Neurologic Neurologic: Denies focal weakness, numbness or tingling Psychiatric Psychiatric: Reports auditory hallucinations; Denies anxiety, depression, homicidal ideation or suicidal ideation Vital Signs Vital Signs Vital Signs: 02/26/21 15:54 Temperature 97.9 F Temperature Source Temporal Pulse Rate 90 Pulse Rhythm Regular Pulse Strength Normal (2+) Respiratory Rate 16 Respiratory Effort Normal Non-Labored Respiratory Depth Normal Respiratory Pattern Normal Blood Pressure 100/66 Blood Pressure Mean 77 Blood Pressure Source Monitor Blood Pressure Position Sitting Blood Pressure Location Left Arm Pulse Ox 98 Oxygen Delivery Method Room Air Physical Exam Const alert and oriented x3 General Appearance: cooperative HEENT normocephalic Eyes PERRL and EOMs intact bilaterally Neck supple, no JVD and no carotid bruits Resp normal respiratory effort, normal air movement and clear to auscultation bilaterally Cardio regular rate and regular rhythm GI normal to inspection, nondistended, normoactive bowel sounds, non-tender and non-distended Extremity normal capillary refill General Extremity: Negative for edema Skin no rashes or lesions noted General Skin Exam: no breakdown Psych affect normal Appearance: appropriate Lab / Micro Data Result Diagrams: 02/27/21 05:05 02/27/21 05:05 Assessment & Plan Assessment/Plan (1) Debility: (2) Colitis: (3) Diarrhea: (4) Hypokalemia: (5) Behavioral disorder: (6) Chronic obstructive pulmonary disease: (7) Parkinson disease: (8) Parkinson's disease dementia: (9) Coronary artery disease: (10) Abdominal aortic aneurysm: (11) Benign prostate hyperplasia: (12) Chronic pain: (13) Behavioral disorder: PLAN: 75 year old male with below past medical history hospitalized for diarrhea secondary to colitis, complicated by acute encephalopathy, underlying Parkinson Disease Dementia, admitted to TCU with debility, here for rehabilitation, strengthening, prior to discharge home with . Debility - PT/OT. Pain - Tylenol 1000MG Q6H PRN pain (1-5), Tramadol 50MG Q6H PRN pain (6-10). Bowel - monitor, recent diarrhea from colitis. Adult immunization - Administer Prevnar 13, Pneumovax 23, COVID19 vaccine as appropriate. DVT prophylaxis - Lovenox 40MG SC daily. Coronary artery disease - Aspirin 81MG daily. Parkinson Disease - Sinemet 25/100MG TID, 50/200MG BID. Colitis - Flagyl 500MG TID x 7 days. 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 BPH - Tamsulosin 0.4MG daily.
[2021-02-26] MEDS: Carbidopa/Levodopa 25/100 Tablet PO (18:02)
[2021-02-26] MEDS: CARBIDOPA/LEVODOPA CR 50/200 Tablet PO (18:02)
[2021-02-26] MEDS: traMADol 50 MG Tablet PO (18:05)
--- NOTE | 2021-02-26 20:50 | NURSING ---
Pt alarm sounding. Standing in doorway to room. Pt disoriented after waking up. Alert to self. Thinks he is at the [facility] and unsure of time. Able to verbalize first and last name. Pt toileted. Incontinent of a scant amount of urine and voided in toilet.. Pericare completed per this nurse. Skin intact to buttocks and coccyx. Brief changed. Pt does not wish to go back to bed at this time. Gait remains unsteady when ambulating from bathroom to chair, approximately 25 ft. Chair alarm connected. LEs reclined. Call light within reach. Pt instructed to call for staff assist and not to complete unassisted transfers. Pleasant and cooperative throughout interaction. Staff to continue to monitor.
[2021-02-26] MEDS: metroNIDAZOLE 500 MG Tablet PO (21:14)
[2021-02-26] MEDS: QUEtiapine 25 MG Tablet PO (21:15)
[2021-02-26] MEDS: Tamsulosin HCl 0.4 MG Capsule PO (21:15)
--- NOTE | 2021-02-27 05:29 | NURSING ---
Phone call received from nurse, Denise, on [facility] reporting a bag of belongings have been left on unit including shoes and clothes. She will bring items to TCU after an anticipated phone call from a physician is received.
[2021-02-27 05:48] LABS: Absolute Lymphocyte Count 1.99 X10^3/uL (0.83-4.51); Absolute Neutrophil Count 3.2 X10^3/uL (2.0-7.7); Basophil# 0.02 X10^3/uL; Basophil% 0.3 % (0-1); Eosinophil# 0.27 X10^3/uL; Eosinophils% 4.5 % (0-5); Hematocrit 38.3 % (40-54); Lymphocyte # 1.99 X10^3/ul (0.83-4.51); Mean Corp Hgb Conc 33.9 g/dL (32-36); Mean Corpuscular Hgb 31.6 pg (27.0-32.0); Mean Platelet Vol. 11.2 fl (6.2-12.0); Monocyte# 0.44 X10^3/uL; Monocyte% 7.3 % (0-10); NRBC Flagged by Analyzer 0 % (0-5); Neutrophil # 3.24 X10^3/uL (2.7-7.7); Neutrophil % 53.7 % (47-70); Platelet Count 203 K/mm3 (150-450); RBC Distribution Width CV 12.7 % (11.6-14.6); RBC Distribution Width SD 43.5 fl (35.1-43.9); Red Blood Count 4.12 M/mm3 (4.6-6.2)
[2021-02-27 06:03] LABS: Anion Gap 5 (5-15); BUN 17 mg/dL (7-18); BUN/Creat Ratio 17.6 RATIO (10-20); Calcium,Total 8.2 mg/dL (8.5-10.1); Chloride 106 mmol/L (98-107); Creatinine, Serum 0.96 mg/dL (0.70-1.30); EST Glomerular Filtration Rate 81 mL/min (>60); Est Glom Filt Rate - Afr Amer 98 mL/min (>60); Estimated Creatinine Clearance 59.85 ml/min; Glucose 89 mg/dL (74-106); Potassium 3.3 mmol/L (3.5-5.1); Sodium Level 141 mmol/L (136-145)
[2021-02-27] MEDS: Acetaminophen 500 MG Tablet 1000 MG PO (06:16)
[2021-02-27] MEDS: Carbidopa/Levodopa 25/100 Tablet PO ×2 (06:16→10:57)
[2021-02-27] MEDS: metroNIDAZOLE 500 MG Tablet PO ×2 (06:16→13:04)
[2021-02-27] MEDS: Menthol/Lanolin/Calamine/Znox 113 GM Tube 1 APPLIC TOPICAL (06:17)
[2021-02-27] MEDS: Enoxaparin 40 MG/0.4 ML Syringe SC (06:17)
[2021-02-27 06:21] VITALS: BP 112/69; PULSE 81; RESP 18; TEMP 36.3; O2SAT 93
[2021-02-27] MEDS: Aspirin 81 MG TAB.CHEW PO (08:32)
[2021-02-27] MEDS: CARBIDOPA/LEVODOPA CR 50/200 Tablet PO (08:32)
[2021-02-27] MEDS: Potassium Chloride Oral Tablet 20 MEQ PO (08:34)
[2021-02-27] MEDS: Tuberculin,Purif.prot.deriv. 50 TU/ML Vial 5 ML ID (10:56)
--- NOTE | 2021-02-27 11:15 | CASEMGMT ---
Social Work: Pt did not review CODE status or MOLST form w/pt due to diagnosis of dementia. SW did call pt's , left message, will speak w/her when she calls back to verify what pt did tell SW, and to explain to her pt is asking to return home. SW will continue to follow. CHRISTIANO Santamaria
--- NOTE | 2021-02-27 12:04 | NURSING ---
was called but no answer at this time.
[2021-02-27 13:51] VITALS: BP 79/50; PULSE 85; RESP 16; TEMP 36.7; O2SAT 93
--- NOTE | 2021-02-27 15:04 | PHA.CONS_ITS ---
Progress Note - Pharmacy Subjective: TCU Admission Objective: Allergies pregabalin [From Lyrica] Adverse Reaction (Severe, Verified 12/07/20 14:24) hallucinations Current Medications Generic Name Dose Route Start Last Admin Trade Name Freq PRN Reason Stop Dose Admin Acetaminophen 1,000 mg 02/26/21 18:18 02/27/21 06:16 Acetaminophen 500 Mg Tablet PO 1,000 mg Q6H PRN PRN Administration Pain Score 1-5 Aspirin 81 mg 02/27/21 08:00 02/27/21 08:32 Aspirin 81 Mg Tab.Chew PO 81 mg DAILY@0800 TYRELL Administration Calamine/Phenol 1 applic 02/27/21 06:00 02/27/21 06:17 Menthol/Lanolin/Calamine/Znox 113 Gm Tube TOPICAL 1 applic BID TYRELL Administration Protocol Carbidopa/Levodopa 1 tablet 02/26/21 17:45 02/27/21 10:57 Carbidopa/Levodopa 25/100 Tablet PO 1 tablet TIDAC TYRELL Administration Carbidopa/Levodopa 1 tablet 02/26/21 16:30 02/27/21 08:32 Carbidopa/Levodopa Cr 50/200 Tablet PO 1 tablet BIDAC TYRELL Administration Enoxaparin Sodium 40 mg 02/27/21 06:00 02/27/21 06:17 Enoxaparin 40 Mg/0.4 Ml Syringe SC 40 mg DAILY@0600 TYRELL Administration Metronidazole 500 mg 02/26/21 22:00 02/27/21 13:04 Metronidazole 500 Mg Tablet PO 03/05/21 22:01 500 mg TID TYRELL Administration Potassium Chloride 20 meq 02/28/21 08:00 Potassium Chloride Oral Tablet 20 Meq PO 03/06/21 08:01 DAILYCM [facility] Quetiapine Fumarate 25 mg 02/26/21 22:00 02/26/21 21:15 Quetiapine 25 Mg Tablet PO 25 mg QHS TYRELL Administration Tamsulosin HCl 0.4 mg 02/26/21 22:00 02/26/21 21:15 Tamsulosin Hcl 0.4 Mg Capsule PO 0.4 mg QHS TYRELL Administration Tramadol HCl 50 mg 02/26/21 18:14 Tramadol 50 Mg Tablet PO Q6H PRN Pain Score 6-10 Tuberculin PPD 5 tu 03/06/21 10:00 Tuberculin,Purif.Prot.Deriv. 50 Tu/Ml Vial ID 03/06/21 10:01 X1 ONE Problem List (Last Reviewed 02/26/21 @ 17:[address] Christian Burrell MD) Behavioral disorder (Acute) Chronic pain (Chronic) Benign prostate hyperplasia (Acute) Abdominal aortic aneurysm (Acute) Coronary artery disease (Acute) Parkinson's disease dementia (Acute) Parkinson disease (Acute) Chronic obstructive pulmonary disease (Chronic) Behavioral disorder (Acute) Hypokalemia (Acute) Diarrhea (Acute) Debility (Acute) Colitis (Acute) Vital Signs Temp Pulse Resp BP Pulse Ox 98.1 F 85 16 79/50 L 93 02/27/21 13:51 02/27/21 13:51 02/27/21 13:51 02/27/21 13:51 02/27/21 13:51 Oxygen Delivery Method Room Air Weight: 62.681 kg Body Mass Index (BMI) 19.3 Sodium 141 mmol/L (136-145) 02/27/21 05:05 Potassium 3.3 mmol/L (3.5-5.1) L 02/27/21 05:05 Chloride 106 mmol/L (98-107) 02/27/21 05:05 Carbon Dioxide 30.0 mmol/L (21.0-32.0) 02/27/21 05:05 Anion Gap 5 (5-15) 02/27/21 05:05 BUN 17 mg/dL (7-18) 02/27/21 05:05 Creatinine 0.96 mg/dL (0.70-1.30) 02/27/21 05:05 Est GFR (MDRD) Af Amer 98 mL/min (>60) 02/27/21 05:05 Est GFR (MDRD) Non-Af 81 mL/min (>60) 02/27/21 05:05 BUN/Creatinine Ratio 17.6 RATIO (10-20) 02/27/21 05:05 Glucose 89 mg/dL (74-106) 02/27/21 05:05 Assessment/Plan: 1. Pain: acetaminophen 1000mg PO Q6H PRN pain (1-5) and tramadol 50mg PO Q6H PRN pain (6-10). Please continue to monitor pain, PRN usage, and respiratory depression. 2. DVT prophylaxis: enoxaparin 40mg SC daily. Please continue to monitor renal function (creatinine last 0.96 mg/dL), platelets (last 203,000), hemoglobin (last 13g/dL) and S/S of bleeding. 3. Coronary artery disease: aspirin 81mg PO daily. Please continue to monitor S/S of CAD and bleeding. 4. Colitis: metronidazole 500mg PO TID x 7 days (through 03/05/21). Please continue to monitor WBC (last 6.0), diarrhea, infection improvement, and S/S of colitis. 5. BPH: tamsulosin 0.4mg PO daily. Please continue to monitor S/S of BPH. 6. Hypokalemia: potassium chloride 20mEq PO daily with meals. Please continue to monitor potassium (last 3.3 mmol/L). 7. Parkinson Disease: Sinemet 25/100mg PO TID and Sinemet CR 50/200mg PO BID. Please continue to monitor S/S of Parkinson Disease and GI symptoms. Psychotropic Medications: 1. 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 Please co ntinue to monitor renal function, dizziness, orthostatic hypotension, blood glucose (last 89 mg/dL), and S/S of behavioral disorder. Please see physician note regarding GDR. Unnecessary Medications: None Bowel Regimen: None Date of Note:: 02/27/21
--- NOTE | 2021-02-27 16:44 | NURSING ---
Pt's came to floor for visit pt stated that he wanted to go home at this time. Pt stated it had nothing to do with staffing and he was very appreciative of the care but just wants to go home. Pt's stated that she told him if he wanted to go home that she would take him at any time. Dr. Burrell updated and AMA paper work signed.
--- NOTE | 2021-02-27 18:50 | DS.PCM_ITS ---
Providers Date of Admission: 02/26/21 Primary Care Physician: Dr. Casper Do, DO Reason For Visit: DIARRHEA AND COLITIS Diagnosis Discharge Diagnosis (1) Debility: Status: Acute Code(s): R53.81 - Other malaise (2) Colitis: Status: Acute Code(s): K52.9 - Noninfective gastroenteritis and colitis, unspecified (3) Diarrhea: Status: Acute Code(s): R19.7 - Diarrhea, unspecified (4) Hypokalemia: Status: Acute Code(s): E87.6 - Hypokalemia (5) Behavioral disorder: Status: Acute (6) Chronic obstructive pulmonary disease: Status: Chronic Code(s): J44.9 - Chronic obstructive pulmonary disease, unspecified (7) Parkinson disease: Status: Acute Code(s): G20 - Parkinson's disease (8) Parkinson's disease dementia: Status: Acute Code(s): G20 - Parkinson's disease; F02.80 - Dementia in other diseases classified else where without behavioral disturbance (9) Coronary artery disease: Status: Acute Code(s): I25.10 - Atherosclerotic heart disease of [place] coronary artery without angina pectoris (10) Abdominal aortic aneurysm: Status: Acute Code(s): I71.4 - Abdominal aortic aneurysm, without rupture (11) Benign prostate hyperplasia: Status: Acute Code(s): N40.0 - Benign prostatic hyperplasia without lower urinary tract symptoms (12) Chronic pain: Status: Chronic Code(s): G89.29 - Other chronic pain (13) Behavioral disorder: Status: Acute Medications at Discharge Home Medications carbidopa-levodopa 1 tab PO BID 06/06/19 hospital bed #1 ea 02/23/20 hospital bed #1 ea 02/23/20 walker #1 ea 04/14/20 tramadol 50 mg tablet 50 mg PO Q6H PRN #150 tab MDD 5 a day 01/31/21 aspirin 81 mg PO DAILY 02/24/21 carbidopa-levodopa [Sinemet] 1 tab PO TIDCM 02/24/21 tamsulosin 0.4 mg PO QHS 02/24/21 acetaminophen [Tylenol] 650 mg PO Q4H PRN PRN #0 tab 02/26/21 metronidazole [Flagyl] 500 mg PO TID 02/26/21 quetiapine 25 mg PO QHS 02/26/21 Hospital Course Operations None Procedures None Summary of Care Provided Minutes Spent on Discharge: 30 Hospital Course: 75 year old male with below past medical history hospitalized for diarrhea secondary to colitis, complicated by acute encephalopathy, underlying Parkinson Disease Dementia, admitted to TCU with debility, here for rehabilitation, strengthening, prior to discharge home with . 02/27/2021 Resident signed resident out Against Medical Advice. ABG / Lab / Microbiology Data Result Diagrams: 02/27/21 05:05 02/27/21 05:05 Laboratory: Laboratory Results - last 24 hr 02/27/21 02/27/21 02/27/21 05:05 05:05 08:10 WBC 6.0 RBC 4.12 L Hgb 13.0 Hct 38.3 L MCV 93.0 MCH 31.6 MCHC 33.9 RDW Std Deviation 43.5 RDW Coeff of Bon[place] 12.7 Plt Count 203 MPV 11.2 Immature Gran % (Auto) 1.200 H Neut % (Auto) 53.7 Lymph % (Auto) 33.0 [place] % (Auto) 7.3 Eos % (Auto) 4.5 Baso % (Auto) 0.3 Absolute Neuts (auto) 3.2 Absolute Lymphs (auto) 1.99 Nucleated RBC % 0 Sodium 141 Potassium 3.3 L Chloride 106 Carbon Dioxide 30.0 Anion Gap 5 BUN 17 Creatinine 0.96 Estim Creat Clear Calc 59.85 Est GFR (MDRD) Af Amer 98 Est GFR (MDRD) Non-Af 81 BUN/Creatinine Ratio 17.6 Glucose 89 Calcium 8.2 L COVID-19 ([facility]) Not Detected D/C Instructions Discharge Diet: No restrictions Discharge Activity: Return to Normal Activity, May Shower and Use [place] Weight Bearing Status: Weight bearing as tolerated Call your doctor if you observe: Fever of 101 or Higher, Inability to urinate, Inability to have a bowel movement, Shortness of breath, Dizziness, Fainting spells, Chest pain and Uncontrolled pain Additional Instructions: 02/27/2021 Resident signed resident out Against Medical Advice. Please Follow Up With: Casper Do DO When: 1 week. Meaningful Use Info Meaningful Use Diagnoses (Choose all that apply): None applicable Discharge Plan Admission Admit Date/Time: 02/26/21 15:40 Primary Reason for Your Visit: Debility Attending Provider: Christian Burrell Chi Primary Care Provider: Casper Do Instructions Additional Instructions / Restrictions: 02/27/2021 Resident signed resident out Against Medical Advice. Discharge Orders/Prescriptions Prescriptions: No Action (DME) walker Qty: 1 RF: 0 carbidopa-levodopa 1 TABLET tablet extended release 1 tab PO BID RF: 0 aspirin 81 mg Tablet 81 mg PO DAILY RF: 0 tamsulosin 0.4 mg capsule 0.4 mg PO QHS RF: 0 carbidopa-levodopa [Sinemet] 25-100 mg Tablet 1 tab PO TIDCM RF: 0 acetaminophen [Tylenol] 325 mg Tablet 650 mg PO Q4H PRN PRN (Reason: Fever, pain -07/16) Qty: 0 RF: 0 quetiapine 25 mg tablet 25 mg PO QHS RF: 0 metronidazole [Flagyl] 500 mg tablet 500 mg PO TID RF: 0 (DME) hospital bed Qty: 1 RF: 0 (DME) hospital bed Qty: 1 RF: 0 tramadol 50 mg tablet 50 mg PO Q6H MDD 5 a day PRN (Reason: pain) Qty: 150 RF: 0 Referrals / Follow Up: Casper Do DO [Primary Care Provider] - Disposition Disposition (needs filled in before D/C Order can be placed): Against Medical Advice
--- NOTE | 2021-03-09 13:41 | MDS.RN ---
Information for the mds was obtained from review of the clinical record, interview of resident, staff, and direct observation of resident's care.
== END 2021-02-27 04:50 | disposition left against medical advice (07) | DRG 392 ==
PROVIDERS: Admitting Provider Family Medicine Geriatric Medicine; PCP Family Medicine; Visit Provider Family Medicine Geriatric Medicine
DX: K52.9 Noninfective gastroenteritis and colitis, unspecified (principal); F02.81 Dementia in other diseases classified elsewhere, unspecified severity, with behavioral disturbance; I25.10 Atherosclerotic heart disease of native coronary artery without angina pectoris; N40.0 Benign prostatic hyperplasia without lower urinary tract symptoms; J44.9 Chronic obstructive pulmonary disease, unspecified; G20 Parkinson's disease; G89.29 Other chronic pain; Z87.891 Personal history of nicotine dependence; I73.00 Raynaud's syndrome without gangrene; Z79.899 Other long term (current) drug therapy; Z79.82 Long term (current) use of aspirin
CPT/HCPCS: 36415; 80048; 85025; 87635; 97110; 97116; 97162; 97166; 97530; 97802; U0002

== ENCOUNTER 2021-12-06 13:11 | Inpatient (IN) | payer MEDICARE, OTHER, SELFPAY ==
[2021-12-06] VITALS (7 sets, daily range): BP systolic 136–167; BP diastolic 87–103; PULSE 90–104; RESP 16–18; TEMP 35.9–36.9; O2SAT 93–99; BMI 22.0; BMI 22.5
--- NOTE | 2021-12-06 14:21 | RAD_ITS ---
STUDY: X-RAY - PELVIS AND LEFT HIP REASON FOR EXAM: Male, 76 years old. Fall/injury TECHNIQUE: 3 views of the pelvis and hip. COMPARISON: None. FINDINGS: There is a non-specific bowel gas pattern. Normal visualized soft tissue structures. Normal bilateral iliac wings, sacroiliac joints and visualized sacrum. Normal bilateral superior and inferior pubic rami. Normal pubic symphysis. Normal bilateral ischial tuberosities. Impacted left subcapital fracture. Disc space narrowing and spondylosis of the lower lumbar spine. RAD/HIP, UNI W/ Pelvis 2-3 Views IMPRESSION: Nondisplaced impacted subcapital fracture of the proximal left femur. Electronically Signed: Mohan Villagran MD at 15:03 EST ,
--- NOTE | 2021-12-06 14:22 | EDS_ITS ---
HPI HPI - Fall History of Present Illness Chief Complaint: Fall Informant: patient and family Occured/Mechanism Occurred: Today Mechanism/Context: Yes same level fall Narrative Narrative: Patient had a fall from standing to his left hip today. He did not try to bear weight on it after the fall. He denies any other injury. He has had similar falls frequently in the past couple weeks which is not uncommon for him. He has Parkinson's, usually walks with a walker, is chronically confused to some degree and has hallucinations, patient is insightful into this and on medications for it, family states this is not anything new or different than they are used to. Denies any recent illness. Denies any head, neck, back, chest, abdominal pain. No focal neurologic symptoms that are new including the the Parkinson's tremor. [facility] Medical History Abdominal aortic aneurysm Atherosclerotic heart disease of [place] coronary artery without angina pectoris Former smoker Parkinson's disease Raynauds disease Home Medications carbidopa-levodopa 1 tab PO BID 06/06/19 [History Last Taken 02/22/21] hospital bed #1 ea 02/23/20 [History Last Taken Unknown] hospital bed #1 ea 02/23/20 [Rx Last Taken Unknown] walker #1 ea 04/14/20 [Rx Last Taken Unknown] aspirin 81 mg PO DAILY 02/24/21 [History Last Taken Unknown] carbidopa-levodopa [Sinemet] 1 tab PO TIDCM 02/24/21 [History Last Taken Unknown] acetaminophen [Tylenol] 650 mg PO Q4H PRN PRN #0 tab 02/26/21 [Rx Last Taken Unknown] dicyclomine 10 mg capsule 20 mg PO BID PRN #30 cap 03/24/21 [Rx Last Taken Unknown] quetiapine 25 mg tablet 25 mg PO QHS #30 tab 06/05/21 [Rx Last Taken Unknown] linaclotide 72 mcg capsule 72 mcg PO QAM #30 cap 08/15/21 [Rx Last Taken Unknown] tramadol 50 mg tablet 50 mg PO Q6H PRN #150 tab MDD 5 a day 11/20/21 [Rx Last Taken Unknown] tamsulosin 0.4 mg capsule 0.4 mg PO QHS #30 cap 12/05/21 [Rx Last Taken Unknown] Allergy/AdvReac Type Severity Reaction Status Date / Time pregabalin [From Lyrica] AdvReac Severe hallucinati Verified 12/06/21 13:15 ons Family History Brother Alcoholism Father Heart disease Myocardial infarction Uncle Heart disease Myocardial infarction Grandfather Heart disease Myocardial infarction Mother Heart disease Surgical History History of cataract surgery History of colonoscopy History of tonsillectomy Social History household members: spouse Smoking Status: Former smoker how long ago did patient quit smokin alcohol intake: never substance use type: does not use what type of physical activity do you participate in: walking frequency: daily ROS ROS ED Constitutional Constitutional ED: Denies chills or fever(s) Eyes Eyes: Denies blurry vision, change in vision or diplopia ENT ENT ED: Denies facial pain, sinus pain, sore throat, tinnitus or vertigo Cardiovascular Cardiovascular: Denies chest pain, dyspnea, edema or palpitations Respiratory/Chest Respiratory/Chest: Denies cough or dyspnea Gastrointestinal Gastrointestinal: Denies abdominal pain, diarrhea, nausea or vomiting Musculoskeletal Musculoskeletal: Reports extremity pain; Denies back pain or neck pain Integumentary Denies Abrasions, rash or wounds Neurologic Neurologic: Denies paresthesias or weakness Psychiatric Psychiatric: Reports as per HPI and hallucinations; Denies suicidal thoughts EXAM Physical Exam Const Vital Signs: 12/06/21 13:13 12/06/21 13:23 12/06/21 13:28 Temperature 96.7 F L Temperature Source Temporal Pulse Rate 94 93 Respiratory Rate 18 16 Respiratory Effort Normal Respiratory Depth Normal Respiratory Pattern Normal Blood Pressure 147/96 H 136/91 H Blood Pressure Mean 113 106 Pulse Ox 98 97 Oxygen Delivery Method Room Air Room Air Room Air Positive well nourished and well developed General Appearance ED: well developed and NAD Neck full ROM and supple Chest Wall inspection of chest normal Chest: Negative for tenderness Resp normal respiratory effort, normal air movement and clear to auscultation bilaterally Cardio regular rate, regular rhythm and no murmurs GI normal to inspection, nondistended, normoactive bowel sounds, non-tender and non-distended Back/Spine normal ROM and normal to inspection Extremity normal to inspection, no calf tenderness and no pedal edema Extremity Narrative: painful ranging of left hip. No obvious shortening. Very limited range of motion there due to pain. Other joints are benign. Neuro oriented x3, no focal motor deficits and no sensory deficits noted Sensorium / Orientation: alert Psych mental status grossly normal and thought process normal Skin no wounds Rashes: no rashes MDM MDM MDM Narrative Medical decision making narrative: Patient has an impacted subcapital femoral neck fracture. This is his [place] hip and will need repaired. He currently lives at home with family and does walk with a walker. Preoperative work-up begun, discussed with orthopedics and hospitalist for admission. Radiography Diagnostic Testing: Clinical Impression(s) from Imaging Studies Hip/Pelvis X-Ray 12/06/21 14:21 IMPRESSION: Nondisplaced impacted subcapital fracture of the proximal left femur. Electronically Signed: Mohan Villagran MD at 15:03 EST , EKG Initial EKG: Attestation: I personally reviewed and interpreted this EKG as follows: Interpretation: Sinus Rhythm, No Acute Injury Pattern and LAFB Discharge Plan Dx/Rx/DC Orders Clinical Impression: Closed fracture of left hip Disposition Disposition: Acute Care Hospital [facility]
[2021-12-06] MEDS: HYDROcodone Bitartrate/Apap 5/325 Tablet PO (15:08)
--- NOTE | 2021-12-06 15:15 | EKG12_ITS ---
Test Reason : PRE-OP Blood Pressure : / mmHG Vent. Rate : 093 BPM Atrial Rate : 093 BPM P-R Int : 160 ms QRS Dur : 078 ms QT Int : 350 ms P-R-T Axes : 056 -57 067 degrees QTc Int : 435 ms Normal sinus rhythm Left axis deviation Abnormal ECG Confirmed by FITO SKINNER, GINA ([id number]), pictures editor HENRY UP ([id number]) on 12/07/2021 2:00:10 PM Referred By: SIMIN Confirmed By:LONA PAYTON MD
[2021-12-06 15:50] LABS: Bacteria 0 SEEN /hpf (None Seen); Mucous, Urine 0 SEEN /hpf (<or=2+); Red Blood Cells-Urine 0 SEEN /hpf (0-5); Squamous Epithelial Cells - UA 0 SEEN /hpf (0-5)
--- NOTE | 2021-12-06 15:50 | NURSING ---
MED SURG BASILIOERI LT HIP FX
--- NOTE | 2021-12-06 15:52 | HP.PCM.HOS_ITS ---
HPI - General General Date of Admission: 12/06/21 Date of Service: 12/06/21 Chief Complaint: Left hip pain HPI Narrative NIKOLAS HANSON, is a 76 M who presents with left hip pain. Patient has history of Parkinson's and falls fairly regularly. Patient fell today landing on his left hip and had pain. He was unable to bear weight. Patient presented to the emergency room and was found to have a nondisplaced impacted subcapital fracture of the proximal left femur. Dr. Amara Villarreal was contacted directly through the emergency room and tentative plan is for surgery on the fourth. [facility] Medical History Abdominal aortic aneurysm Atherosclerotic heart disease of [place] coronary artery without angina pectoris Former smoker Parkinson's disease Raynauds disease Home Medications carbidopa-levodopa 1 tab PO BID 06/06/19 [History Last Taken 02/22/21] hospital bed #1 ea 02/23/20 [History Last Taken Unknown] hospital bed #1 ea 02/23/20 [Rx Last Taken Unknown] walker #1 ea 04/14/20 [Rx Last Taken Unknown] carbidopa-levodopa [Sinemet] 1 tab PO TIDCM 02/24/21 [History Last Taken U nknown] quetiapine 25 mg tablet 25 mg PO QHS #30 tab 06/05/21 [Rx Last Taken Unknown] tramadol 50 mg tablet 50 mg PO Q6H PRN #150 tab MDD 5 a day 11/20/21 [Rx Last Taken Unknown] tamsulosin 0.4 mg capsule 0.4 mg PO QHS #30 cap 12/05/21 [Rx Last Taken Unknown] [id number] [Emily-[place] Plus] 1 ea PO DAILY PRN PRN 12/06/21 [History Last Taken 12/05/21] ibuprofen 800 mg PO BID PRN 12/06/21 [History Last Taken 12/05/21] Allergy/AdvReac Type Severity Reaction Status Date / Time pregabalin [From Lyrica] AdvReac Severe hallucinati Verified 12/06/21 13:15 ons Family History Brother Alcoholism Father Heart disease Myocardial infarction Uncle Heart disease Myocardial infarction Grandfather Heart disease Myocardial infarction Mother Heart disease Surgical History History of cataract surgery History of colonoscopy History of tonsillectomy Social History household members: spouse Smoking Status: Former smoker how long ago did patient quit smokin alcohol intake: never substance use type: does not use what type of physical activity do you participate in: walking frequency: daily ROS ROS Narrative Limited due to confusions. Patient's is at bedside and states that he is having hallucinations which is chronic for him. All review of systems were negative except as mentioned above in the history of present illness and the other review of systems. Vital Signs Vital Signs Vital Signs: 12/06/21 13:13 12/06/21 13:23 12/06/21 13:28 Temperature 35.9 C L Temperature Source Temporal Pulse Rate 94 93 Respiratory Rate 18 16 Respiratory Effort Normal Respiratory Depth Normal Respiratory Pattern Normal Blood Pressure 147/96 H 136/91 H Blood Pressure Mean 113 106 Pulse Ox 98 97 Oxygen Delivery Method Room Air Room Air Room Air Weight Weight: 65.771 kg Body Mass Index (BMI) 22.0 Physical Exam Const alert General Appearance: cooperative HEENT normocephalic, head/scalp atraumatic, hearing grossly normal bilaterally and moist oral mucous membranes Resp normal respiratory effort, no retractions, no use of accessory muscles and clear to auscultation bilaterally Cardio regular rate, regular rhythm, S1 normal heart sound and S2 normal heart sound GI normal to inspection, nondistended, normoactive bowel sounds, soft to palpation, non-tender and non-distended Extremity Extremity Narrative: Shortened left lower extremity compared to the right. Skin no rashes or lesions noted Neuro moves all extremities Neuro Narrative: Pleasantly confused. Psych affect normal Results Lab / Micro Data Attestation: I reviewed the patient's lab results. Radiology Impression Hip/Pelvis X-Ray 12/06/21 14:21 IMPRESSION: Nondisplaced impacted subcapital fracture of the proximal left femur. Electronically Signed: Mohan Villagran MD at 15:03 EST , Assessment & Plan Assessment/Plan (1) Closed fracture of left hip: QUALIFIERS: Encounter type: initial encounter Qualified Code(s): S72.002A - Fracture of unspecified part of neck of left femur, initial encounter for closed fracture PLAN: 1. Left hip fracture Status post fall Patient has overall poor performance status but does ambulate baseline with a walker. Awaiting on his labs and EKG but barring any significant abnormalities, patient likely to be cleared for surgery Consult to Dr. Emerson NQSIP performed and showed the patient is at risk for serious complications, any complications, pneumonia, cardiac complications, surgical site infection, readmission, return to the OR, and discharged to nursing or rehab facility. Assuming EKG and lab work is unremarkable then patient would be medically cleared to proceed with surgery. Patient does have COPD as well as Parkinson's though these are severe disease fo r the patient they are otherwise medically optimized at this time. 2. Parkinson's disease Continue with Sinemet 3. COPD Stable but does have dyspnea on exertion at baseline 4. VTE prophylaxis with SCDs 5. CODE STATUS: Addressed with patient and his . He is full CODE STATUS at this time. 6. COVID-19 vaccination status: Patient has been vaccinated but not boosted yet. He has lost his car but the information is at [facility] [place]. Told him that we would defer any booster immunization at this time but at some point after his surgery assuming he is within the timeframe to have the booster shot then he should do so. Charges/Coding Visit Charges Inpatient E&M: 64381 Init Hosp L2
[2021-12-06 15:59] LABS: Color, Urine Yellow (Yellow); Glucose, Dipstick Normal (Normal); Ketone-Dipstick 5 mg/dl (Negative); Leukocyte Esterase-Dipstick Negative /ul (Negative); Nitrite-Dipstick Negative (Negative); Occult Blood-Urine Negative /ul (Negative); Protein-Dipstick Negative (Negative); Specific Gravity, Urine 1.015 (1.002-1.030); Urine Bilirubin Dipstick Negative (Negative); Urine Clarity Clear (Clear); Urine Urobilinogen Normal (Normal)
[2021-12-06] MEDS: Carbidopa/Levodopa 25/100 Tablet PO (16:11)
[2021-12-06 16:15] LABS: Absolute Lymphocyte Count 1.05 X10^3/uL (0.83-4.51); Absolute Neutrophil Count 6.4 X10^3/uL (2.0-7.7); Basophil# 0.04 X10^3/uL; Basophil% 0.5 % (0-1); Eosinophil# 0.18 X10^3/uL; Eosinophils% 2.2 % (0-5); Hematocrit 41.8 % (40-54); Hemoglobin 13.9 g/dL (13.0-16.5); Lymphocyte # 1.05 X10^3/ul (0.83-4.51); Lymphocyte % 12.5 % (19-41); Mean Corp Hgb Conc 33.3 g/dL (32-36); Mean Corpuscular Hgb 32.1 pg (27.0-32.0); Mean Corpuscular Volume 96.5 fL (80-94); Mean Platelet Vol. 10.6 fl (6.2-12.0); Monocyte# 0.59 X10^3/uL; NRBC Flagged by Analyzer 0 % (0-5); Neutrophil # 6.42 X10^3/uL (2.7-7.7); Neutrophil % 76.7 % (47-70); Platelet Count 185 K/mm3 (150-450); RBC Distribution Width CV 12.5 % (11.6-14.6); RBC Distribution Width SD 44.5 fl (35.1-43.9); Red Blood Count 4.33 M/mm3 (4.6-6.2); White Blood Count 8.4 K/mm3 (4.4-11.0)
[2021-12-06 16:18] LABS: Amorphous Sediment 1+; White Blood Cells 0-5 SEEN /hpf (0-5)
[2021-12-06 16:33] LABS: Anion Gap 2 (5-15); BUN 22 mg/dL (7-18); BUN/Creat Ratio 18.8 RATIO (10-20); Calcium,Total 9.4 mg/dL (8.5-10.1); Chloride 106 mmol/L (98-107); Creatinine, Serum 1.17 mg/dL (0.70-1.30); EST Glomerular Filtration Rate 65 mL/min (>60); Est Glom Filt Rate - Afr Amer 78 mL/min (>60); Estimated Creatinine Clearance 50.75 ml/min; Glucose 98 mg/dL (74-106); Potassium 4.6 mmol/L (3.5-5.1); Sodium Level 138 mmol/L (136-145)
--- NOTE | 2021-12-06 17:25 | RAD_ITS ---
STUDY: XR Chest 1 View 12/06/2021 5:18 PM REASON FOR EXAM: Male, 76 years old. CHEST PAIN preoperative COMPARISON: 5 TECHNIQUE: XR Chest 1 View FINDINGS: There is no demonstrated pleural abnormality. Normal heart size. Normal mediastinum. Normal deyanira. Prominent appearing increased interstitial lung markings. Normal visualized pulmonary arteries. There is atherosclerotic calcification of the aortic arch with tortuosity. There are diffuse degenerative changes of the visualized thoracic spine. There is degenerative osteoarthritis of the bilateral shoulders. There is no demonstrated abnormality of the visualized soft tissue structures of the upper abdomen. RAD/Chest 1 View (Portable) IMPRESSION: There are no acute findings. Electronically Signed: Kenan Castro MD at 17:40 EST ,
--- NOTE | 2021-12-06 17:39 | EKG12_ITS ---
Test Reason : REPEAT Blood Pressure : / mmHG Vent. Rate : 094 BPM Atrial Rate : 094 BPM P-R Int : 150 ms QRS Dur : 070 ms QT Int : 358 ms P-R-T Axes : 034 -60 047 degrees QTc Int : 447 ms Normal sinus rhythm Left axis deviation Abnormal ECG When compared with ECG of 06-DEC-2021 15:28, MANUAL COMPARISON REQUIRED, DATA IS UNCONFIRMED Confirmed by FITO SKINNER, GINA ([id number]), purchase request editor HENRY UP ([id number]) on 12/08/2021 1:47:00 PM Referred By: YOHANA Confirmed By:LONA PAYOTN MD
[2021-12-06 18:46] LABS: ALB/GLOB Ratio 0.8 RATIO (0.9-2.4); AST(SGOT) 21 U/L (15-37); Alanine Aminotransfer ALT/SGPT 7 U/L (16-61); Albumin, Serum 3.4 g/dL (3.2-5.0); Alkaline Phosphatase 94 U/L (45-117); Anion Gap 4 (5-15); BUN 20 mg/dL (7-18); BUN/Creat Ratio 19.6 RATIO (10-20); Calcium,Total 8.5 mg/dL (8.5-10.1); Chloride 104 mmol/L (98-107); Creatinine, Serum 1.02 mg/dL (0.70-1.30); EST Glomerular Filtration Rate 76 mL/min (>60); Est Glom Filt Rate - Afr Amer 92 mL/min (>60); Estimated Creatinine Clearance 59.44 ml/min; Globulin 4.4 g/dL (2.2-4.2); Glucose 102 mg/dL (74-106); Protein, Total 7.8 g/dL (6.4-8.2); Sodium Level 139 mmol/L (136-145)
[2021-12-06 19:57] LABS: Vitamin D,25 Hydroxy 11.1 ng/mL
[2021-12-06] MEDS: Acetaminophen 325 MG Tablet 650 MG PO (20:44)
[2021-12-06] MEDS: oxyCODONE 5 MG Tablet PO (20:45)
[2021-12-06] MEDS: CARBIDOPA/LEVODOPA CR 50/200 Tablet PO (20:47)
[2021-12-06] MEDS: Senna/Docusate Sodium 1 Tablet 2 TABLET PO (20:47)
[2021-12-06] MEDS: Tamsulosin HCl 0.4 MG Capsule PO (20:47)
[2021-12-06] MEDS: QUEtiapine 25 MG Tablet PO (20:48)
[2021-12-07] MEDS: Acetaminophen 325 MG Tablet 650 MG PO ×2 (03:01→12:50)
[2021-12-07] MEDS: oxyCODONE 5 MG Tablet PO ×2 (03:02→12:50)
[2021-12-07 05:28] VITALS: BP 139/90; PULSE 97; RESP 16; TEMP 36.7; O2SAT 93
[2021-12-07] MEDS: CARBIDOPA/LEVODOPA CR 50/200 Tablet PO ×2 (05:31→20:51)
[2021-12-07] MEDS: Senna/Docusate Sodium 1 Tablet 2 TABLET PO ×2 (08:36→20:51)
[2021-12-07] MEDS: Carbidopa/Levodopa 25/100 Tablet PO ×3 (08:37→17:16)
[2021-12-07 09:19] VITALS: BP 92/66; PULSE 93; RESP 16; TEMP 37.1; O2SAT 94
--- NOTE | 2021-12-07 10:50 | CASEMGMT ---
RN ARIADNA Face to Face with patient for initial transition planning/care coordination assessment. RN CM introduced self and role at [facility]. Patient lying in bed, alert and oriented. Patient willing to participate in assessment and is able to answer all questions appropriately. Care providers, pharmacy, and demographics verified. Patient wishes to discharge home. RN CM discussed options of HHC vs SNF vs RU pending course of treatment and progress with therapy. CM to follow progress with therapy. Patient states he has no further needs or concerns at this time. CM to follow for discharge planning needs that may arise. 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 Preferred Pharmacy: Adam Pisano; [facility] retail at discharge Insurance: [facility], [facility] Prescription Benefit: yes Living Will/HPOA: none LNOK: Living Arrangements: Patient lives with in a 2 story home with bed and bath on first floor. Patient states he was independent at home for self care. Transportation: DME/HHC: Patient states he has shower chair, raised toilet, cane, walker, grab bars at home. Patient denied previous HHC or SNF. Disposition Plan: HHC vs SNF vs RU pending course of treatment and progress with therapy. Cristina COELLO, RN, CM
[2021-12-07 11:31] VITALS: BP 135/93; PULSE 91; RESP 16; TEMP 36.4; O2SAT 92
--- NOTE | 2021-12-07 11:44 | CONS.ORTHO ---
HPI Consult Data Date of Consult: 12/07/21 HPI Narrative HPI Narrative: NIKOLAS HANSON, is a 76 M who presents with left hip pain. He ambulates with a walker. He has Parkinson's disease and is poor historian. Denies pain elsewhere. [facility] Medical History Abdominal aortic aneurysm Atherosclerotic heart disease of [place] coronary artery without angina pectoris Former smoker Parkinson's disease Raynauds disease Home Medications hospital bed #1 ea 02/23/20 [History Last Taken Unknown] hospital bed #1 ea 02/23/20 [Rx Last Taken Unknown] walker #1 ea 04/14/20 [Rx Last Taken Unknown] carbidopa-levodopa [Sinemet] 1 tab PO TIDCM@0900,1300,1800 02/24/21 [History Last Taken 12/06/21] quetiapine 25 mg tablet 25 mg PO QHS #30 tab 06/05/21 [Rx Last Taken 12/05/21] tramadol 50 mg tablet 50 mg PO Q6H PRN #150 tab MDD 5 a day 11/20/21 [Rx Last Taken 12/05/21] tamsulosin 0.4 mg capsule 0.4 mg PO QHS #30 cap 12/05/21 [Rx Last Taken 12/05/21] rwfuhoxoyktjhpnz-WDP-yewvwhh [Emily-Risingsun Plus] 1 ea PO DAILY PRN PRN 12/06/21 [History Last Taken 12/05/21] ibuprofen 800 mg PO BID PRN 12/06/21 [History Last Taken 12/05/21] carbidopa-levodopa [Sinemet CR] 1 tab PO BID 12/07/21 [History Last Taken Unknown] escitalopram oxalate [Lexapro] 10 mg PO DAILY 12/07/21 [History Last Taken Unknown] Allergy/AdvReac Type Severity Reaction Status Date / Time pregabalin [From Lyrica] AdvReac Severe hallucinati Verified 12/06/21 13:15 ons Family History Brother Alcoholism Father Heart disease Myocardial infarction Uncle Heart disease Myocardial infarction Grandfather Heart disease Myocardial infarction Mother Heart disease Surgical History History of cataract surgery History of colonoscopy History of tonsillectomy Social History household members: spouse Smoking Status: Former smoker how long ago did patient quit smokin alcohol intake: never substance use type: does not use what type of physical activity do you participate in: walking frequency: daily Vital Signs Vital Signs Vital Signs: 12/06/21 13:13 12/06/21 13:23 12/06/21 13:28 Temperature 96.7 F L Temperature Source Temporal Pulse Rate 94 93 Pulse Strength Respiratory Rate 18 16 Respiratory Effort Normal Respiratory Depth Normal Respiratory Pattern Normal Blood Pressure 147/96 H 136/91 H Blood Pressure Mean 113 106 Blood Pressure Source Blood Pressure Position Blood Pressure Location Pulse Ox 98 97 Oxygen Delivery Method Room Air Room Air Room Air 12/06/21 16:01 12/06/21 16:39 12/06/21 18:01 Temperature 98.2 F Temperature Source Oral Pulse Rate 90 Pulse Strength Respiratory Rate 16 Respiratory Effort Normal Respiratory Depth Normal Respiratory Pattern Normal Blood Pressure 157/98 H Blood Pressure Mean 117 Blood Pressure Source Blood Pressure Position Blood Pressure Location Pulse Ox 94 99 Oxygen Delivery Method Room Air Room Air Room Air 12/06/21 18:34 12/06/21 20:45 12/06/21 21:00 Temperature 98.4 F Temperature Source Oral Pulse Rate 96 104 H Pulse Strength Normal (2+) Respiratory Rate 18 Respiratory Effort Respiratory Depth Respiratory Pattern Blood Pressure 167/103 H Blood Pressure Mean 124 Blood Pressure Source Monitor Blood Pressure Position Semi-Fowlers Blood Pressure Location Right Arm Pulse Ox 96 Oxygen Delivery Method Room Air 12/06/21 23:35 12/07/21 05:28 12/07/21 09:19 Temperature 97.9 F 98.1 F 98.7 F Temperature Source Oral Oral Oral Pulse Rate 101 H 97 93 Pulse Strength Normal (2+) Respiratory Rate 18 16 16 Respiratory Effort Normal Respiratory Depth Normal Respiratory Pattern Normal Blood Pressure 146/87 H 139/90 H 92/66 Blood Pressure Mean 106 106 74 Blood Pressure Source Monitor Monitor Monitor Blood Pressure Position Semi-Fowlers Semi-Fowlers Semi-Fowlers Blood Pressure Location Right Arm Right Arm Right Arm Pulse Ox 93 93 94 Oxygen Delivery Method Room Air Room Air Room Air 12/07/21 11:31 Temperature 97.6 F L Temperature Source Oral Pulse Rate 91 Pulse Strength Respiratory Rate 16 Respiratory Effort Respiratory Depth Respiratory Pattern Blood Pressure 135/93 H Blood Pressure Mean 107 Blood Pressure Source Monitor Blood Pressure Position Semi-Fowlers Blood Pressure Location Right Arm Pulse Ox 92 Oxygen Delivery Method Room Air Weight Weight: 148 lb 1 oz Body Mass Index (BMI) 22.5 Physical Exam Const alert and no apparent distress General Appearance: cooperative Extremity normal capillary refill, no clubbing, cyanosis or edema, no calf tenderness and no pedal edema Extremity Narrative: PTP Left hip. ROM not tested due to known fracture. LLE slightly shorter than the right. NVI Neuro moves all extremities and no sensory deficits noted Lab / Micro Data Result Diagrams: 12/06/21 16:04 12/06/21 18:05 Labs: Laboratory Results - last 24 hr 12/06/21 15:40: Urine Color Yellow, Urine Clarity Clear, Urine pH 8.0, Ur Specific [place] 1.015, Urine Protein Negative, Urine Glucose (UA) Normal, Urine Ketones 5 H, Urine Occult Blood Negative, Urine Nitrite Negative, Urine Bilirubin Negative, Urine Urobilinogen Normal, Ur Leukocyte Esterase Negative, Urine RBC 0 SEEN, Urine WBC 0-5 SEEN, Ur Squamous Epith Cells 0 SEEN, Amorphous Sediment 1+, Urine Bacteria 0 SEEN, Urine Mucus 0 SEEN 12/06/21 16:04: WBC 8.4, RBC 4.33 L, Hgb 13.9, Hct 41.8, MCV 96.5 H, MCH 32.1 H, MCHC 33.3, RDW Std Deviation 44.5 H, RDW Coeff of Boni 12.5, Plt Count 185, MPV 10.6, Immature Gran % (Auto) 1.100 H, Neut % (Auto) 76.7 H, Lymph % (Auto) 12.5 L, [place] % (Auto) 7.0, Eos % (Auto) 2.2, Baso % (Auto) 0.5, Absolute Neuts (auto) 6.4, Absolute Lymphs (auto) 1.05, Nucleated RBC % 0 12/06/21 16:04: Sodium 138, Potassium 4.6, Chloride 106, Carbon Dioxide 30.0, Anion Gap 2 L, BUN 22 H, Creatinine 1.17, Estim Creat Clear Calc 50.75, Est GFR (MDRD) Af Amer 78, Est GFR (MDRD) Non-Af 65, BUN/Creatinine Ratio 18.8, Glucose 98, Calcium 9.4 12/06/21 18:05: Sodium 139, Potassium 4.0, Chloride 104, Carbon Dioxide 31.0, Anion Gap 4 L, BUN 20 H, Creatinine 1.02, Estim Creat Clear Calc 59.44, Est GFR (MDRD) Af Amer 92, Est GFR (MDRD) Non-Af 76, BUN/Creatinine Ratio 19.6, Glucose 102, Calcium 8.5, Total Bilirubin 0.90, AST 21, ALT 7 L, Alkaline Phosphatase 94, Total Protein 7.8, Albumin 3.4, Globulin 4.4 H, Albumin/Globulin Ratio 0.8 L 12/06/21 18:05: Vitamin D 25-Hydroxy 11.1 Radiology Impression Hip/Pelvis X-Ray 12/06/21 14:21 IMPRESSION: Nondisplaced impacted subcapital fracture of the proximal left femur. Electronically Signed: Mohan Villagran MD at 15:03 EST , Chest X-Ray 12/06/21 17:25 IMPRESSION: There are no acute findings. Electronically Signed: Kenan Castro MD at 17:40 EST , Assessment & Plan Assessment/Plan (1) Closed fracture of left hip: QUALIFIERS: Encounter type: initial encounter Qualified Code(s): S72.002A - Fracture of unspecified part of neck of left femur, initial encounter for closed fracture PLAN: To OR for cemented hemiarthroplasty of left hip. Potential risks, benefits and complications reviewed.
--- NOTE | 2021-12-07 12:17 | PN.HOSP_ITS ---
Documented by User: Isreal UPTON 12/07/21 12:25 Subjective Subjective Patient is a 76-year-old male lying in bed, alert and oriented to self. Patient cannot provide much insight into current condition is he is confused at baseline secondary to dementia. Seems pleasant and does not appear in acute distress. Objective Data Objective Data Vital Signs: Vital Signs Temp Pulse Resp BP Pulse Ox 97.6 F L 91 16 135/93 H 92 12/07/21 11:31 12/07/21 11:31 12/07/21 11:31 12/07/21 11:31 12/07/21 11:31 Oxygen Delivery Method Room Air Weight: 148 lb 1 oz Body Mass Index (BMI) 22.5 Intake & Output: Intake and Output for Last 24 Hours 12/05/21 12/06/21 12/07/21 23:59 23:59 23:59 Intake Total 350 / 350 350 / 350 Output Total 700 / 700 650 / 650 Balance -350 / -350 -300 / -300 Lab / Micro Data Result Diagrams: 12/06/21 16:04 12/06/21 18:05 Labs: Laboratory Results - last 24 hr 12/06/21 15:40: Urine Color Yellow, Urine Clarity Clear, Urine pH 8.0, Ur Specific [place] 1.015, Urine Protein Negative, Urine Glucose (UA) Normal, Urine Ketones 5 H, Urine Occult Blood Negative, Urine Nitrite Negative, Urine Bilirubin Negative, Urine Urobilinogen Normal, Ur Leukocyte Esterase Negative, Urine RBC 0 SEEN, Urine WBC 0-5 SEEN, Ur Squamous Epith Cells 0 SEEN, Amorphous Sediment 1+, Urine Bacteria 0 SEEN, Urine Mucus 0 SEEN 12/06/21 16:04: WBC 8.4, RBC 4.33 L, Hgb 13.9, Hct 41.8, MCV 96.5 H, MCH 32.1 H, MCHC 33.3, RDW Std Deviation 44.5 H, RDW Coeff of Boni 12.5, Plt Count 185, MPV 10.6, Immature Gran % (Auto) 1.100 H, Neut % (Auto) 76.7 H, Lymph % (Auto) 12.5 L, [place] % (Auto) 7.0, Eos % (Auto) 2.2, Baso % (Auto) 0.5, Absolute Neuts (auto) 6.4, Absolute Lymphs (auto) 1.05, Nucleated RBC % 0 12/06/21 16:04: Sodium 138, Potassium 4.6, Chloride 106, Carbon Dioxide 30.0, An ion Gap 2 L, BUN 22 H, Creatinine 1.17, Estim Creat Clear Calc 50.75, Est GFR (MDRD) Af Amer 78, Est GFR (MDRD) Non-Af 65, BUN/Creatinine Ratio 18.8, Glucose 98, Calcium 9.4 12/06/21 18:05: Sodium 139, Potassium 4.0, Chloride 104, Carbon Dioxide 31.0, Anion Gap 4 L, BUN 20 H, Creatinine 1.02, Estim Creat Clear Calc 59.44, Est GFR (MDRD) Af Amer 92, Est GFR (MDRD) Non-Af 76, BUN/Creatinine Ratio 19.6, Glucose 102, Calcium 8.5, Total Bilirubin 0.90, AST 21, ALT 7 L, Alkaline Phosphatase 94, Total Protein 7.8, Albumin 3.4, Globulin 4.4 H, Albumin/Globulin Ratio 0.8 L 12/06/21 18:05: Vitamin D 25-Hydroxy 11.1 Radiography Diagnostic Testing: Radiology Impression Hip/Pelvis X-Ray 12/06/21 14:21 IMPRESSION: Nondisplaced impacted subcapital fracture of the proximal left femur. Electronically Signed: Mohan Villagran MD at 15:03 EST , Chest X-Ray 12/06/21 17:25 IMPRESSION: There are no acute findings. Electronically Signed: Kenan Castro MD at 17:40 EST , Physical Exam Const alert, oriented x3 and no apparent distress HEENT head/scalp atraumatic and moist oral mucous membranes Head and Scalp: normocephalic Eyes PERRL, EOMs intact bilaterally and conjunctivae normal Neck no lymphadenopathy, supple and no JVD Resp normal respiratory effort, no retractions and no use of accessory muscles Cardio regular rate, regular rhythm and no JVD GI normal to inspection, nondistended, normoactive bowel sounds Extremity normal to inspection Neuro CN's II-XII intact bilaterally Psych affect normal Assessment & Plan Assessment/Plan (1) Closed fracture of left hip: QUALIFIERS: Encounter type: initial encounter Qualified Code(s): S72.002A - Fracture of unspecified part of neck of left femur, initial encounter for closed fracture PLAN: Day 1 Discharge planning: To be determined. 1) closed left hip fracture X-ray of the hip and pelvis demonstrates nondisplaced impacted subcapital fracture of the proximal left femur. Orthopedics consulted and will take patient for left hip hemiarthroplasty on 12/08. Management per orthopedics. 2) Parkinson's disease Continue Sinemet. 3) BPH Continue Flomax. 4) dementia/depression Continue Seroquel. DVT prophylaxis - SCD's. Patient seen by Isreal Barnett PA-C, under the supervision of Dr. Miranda. Time spent on patient care: 9 minutes. Documented by User: Dr. Nena Miranda MD 12/07/21 16:03 Objective Data Lab / Micro Data Result Diagrams: 12/06/21 16:04 12/06/21 18:05 Charges/Coding Addendum Addendum: This patient was seen in conjunction with ALEXSANDRA Pete. I have independently interviewed and examined the patient and reviewed pertinent hist orical, laboratory, and other data. Please refer to ALEXSANDRA Pete's note for his patient's presentation, findings, and recommendations. I have reviewed and his note and concur with his documentation. 76-year-old male with past medical history of Parkinson's disease, history of recurrent falls was admitted after a fall and sustained nondisplaced impacted subcapital fracture of the proximal left femur. Patient was seen with the at the bedside. He denied any pain. Patient denied any cardiac disease or abdominal aortic aneurysm. His stated that he has history of aneurysm in the brain. No record of such in the system. He denied any chest pain or dizziness or palpitations. Physical Exam: Gen: Masked facies, appears comfortable, on 2 L of oxygen, not pale, not jaundiced CVS:HS I +II, regular, no murmurs RESP: Diminished at lung bases GI: BS present and normal, soft, nontender, no palpable organs EXT: Tenderness over the left hip. ASSESSMENT: 1. Acute nondisplaced impacted subcapital fracture left femur 2. Parkinson's disease with dementia 3. BPH Plan: Continue with pain control, Seroquel, Sinemet Orthopedic consulted from ED; surgery planned for 10 am Visit Charges Inpatient E&M: 28822 Subs Hosp L2
[2021-12-07 15:49] VITALS: BP 106/65; PULSE 92; RESP 16; TEMP 36.9; O2SAT 92
[2021-12-07] MEDS: oxyCODONE 5 MG Tablet 10 MG PO ×2 (16:49→20:56)
[2021-12-07] MEDS: QUEtiapine 25 MG Tablet PO (20:51)
[2021-12-07] MEDS: Tamsulosin HCl 0.4 MG Capsule PO (20:51)
[2021-12-07 21:50] VITALS: BP 149/107; PULSE 98; RESP 16; TEMP 36.7; O2SAT 93
[2021-12-08] VITALS (10 sets, daily range): BP systolic 120–154; BP diastolic 76–95; PULSE 84–104; RESP 16–18; TEMP 36.5–37.1; O2SAT 88–96; BMI 22.5
--- NOTE | 2021-12-08 | HIP_PTH ---
PATIENT: NIKOLAS HANSON LOC: MS3 U#:[id number] AGE/SX: 76/M ROOM: [facility] [place] RE12/06/[address]: Dr. Yuri Villafana MD : 1945 BED: 1 DIS: 12/11/2021 SPEC #: [id number] RECD: 12/11/21 11:07 STATUS: DELLA REQ #: [id number] IVETH: 12/08/21 00:[address]: Gennaro Villarreal DEPT: SURGICAL PATHOLOGY RECD BY: Ben Brown ENTERED: 12/11/21 13:48 SP TYPE: TOTAL HIP OTHR DR: Dr. Casper Do, DO Dr. Thanh Rhoades, DO Dr. Gennaro Villarreal, DO Dr. Yuri Villafana MD Tissues: Hip, NOS Procedures: Decalcification bone/plaque Surgery Specimen Level IV Comments: @ Ordering doctor for DEC edited from to @ by ALEXANDER at 12/11/21 1534 @ Ordering doctor for SUIV edited from to @ by ALEXANDER at 12/11/21 1534 @ Submitting doctor edited from to DR.MKNAPI Parmar by ALEXANDER at 12/11/21 1534 HEADER OPERATION: Left hip cemented hemiarthroplasty PRE-OP DIAGNOSIS: Closed fracture of left hip TISSUE SUBMITTED: Bone and soft tissue of left hip MICROSCOPIC DIAGNOSIS Left hip bone and soft tissue, hemiarthroplasty: Femoral head and detached pieces of bone with focal area of hemorrhage, clinically closed fracture left hip. Fragments of fibroadipose tissue and fibroconnective tissue. JORDAN:tuckre 12/14/2021 MICROSCOPIC DESCRIPTION Slides are reviewed. GROSS DESCRIPTION Received is one container labeled with the patient's name and designated bone and soft tissue left hip. The specimen consists of a gonzales femoral head measuring 4.5 x 4.5 x 4 cm. The articular surface is smooth. Resection margin is irregular and hemorrhagic. Also present in the specimen container are multiple detached pieces of bone measuring in aggregate 6 x 4 x 2 cm. Also present in the container are two pieces of soft tissue measuring in aggregate 4 x 2.5 x 1.5 cm. [employer] Work[employer] sections are submitted in three cassettes as follows: 1 - soft tissue, 2 - detached pieces of bone, 3 - femoral head. Cassettes 2 & 3 are submitted after decalcification. / Omid 12/11/2021 TC:5 CPT: 84625, 01182
[2021-12-08] MEDS: oxyCODONE 5 MG Tablet 10 MG PO (01:32)
[2021-12-08] MEDS: Carbidopa/Levodopa 25/100 Tablet PO ×2 (09:31→17:31)
[2021-12-08] MEDS: Escitalopram Oxalate 10 MG Tablet PO (09:31)
[2021-12-08] MEDS: 0.9% Normal Saline 1,000 ML 100 ML IV ×2 (09:33→20:43)
--- NOTE | 2021-12-08 12:14 | PCM.PN.HOSP ---
Documented by User: Isreal UPTON 12/08/21 12:19 Subjective Subjective Patient is a 76-year-old male comfortably lying in bed, alert and oriented to self. Patient cannot provide much insight into current condition as he is chronically confused at baseline due to dementia. Does not appear in acute distress. Objective Data Objective Data Vital Signs: Vital Signs Temp Pulse Resp BP Pulse Ox 98.1 F 84 16 142/81 H 95 12/08/21 11:45 12/08/21 11:45 12/08/21 11:45 12/08/21 11:45 12/08/21 11:45 Oxygen Delivery Method Room Air Weight: 148 lb 1 oz Body Mass Index (BMI) 22.5 Intake & Output: Intake and Output for Last 24 Hours 12/06/21 12/07/21 12/08/21 23:59 23:59 23:59 Intake Total 350 / 350 600 / 600 50 / 50 Output Total 700 / 700 1250 / 1250 825 / 825 Balance -350 / -350 -650 / -650 -775 / -775 Lab / Micro Data Result Diagrams: 12/06/21 16:04 12/06/21 18:05 Micro: Microbiology 12/08/21 01:20 Nasal Secretion SARS-CoV-2 Antigen (Rapid) - Final Physical Exam Const alert and no apparent distress HEENT head/scalp atraumatic and moist oral mucous membranes Head and Scalp: normocephalic Eyes PERRL, EOMs intact bilaterally and conjunctivae normal Neck no lymphadenopathy, supple and no JVD Resp normal respiratory effort, no retractions and no use of accessory muscles Cardio regular rate, regular rhythm and no JVD GI normal to inspection, nondistended, normoactive bowel sounds Extremity normal to inspection Skin no rashes or lesions noted Neuro CN's II-XII intact bilaterally Psych affect normal Assessment & Plan Assessment/Plan (1) Closed fracture of left hip: QUALIFIERS: Encounter type: initial encounter Qualified Code(s): S72.002A - Fracture of unspecified part of neck of left femur, initial encounter for closed fracture PLAN: Day 2 Discharge planning: To be determined. 1) closed left hip fracture X-ray of the hip and pelvis demonstrates nondisplaced impacted subcapital fracture of the proximal left femur. Orthopedics consulted to undergo left hip hemiarthroplasty today. Management per orthopedics. 2) Parkinson's disease Continue Sinemet. 3) BPH Continue Flomax. 4) dementia/depression Continue Seroquel. DVT prophylaxis - SCD's. Patient seen by Isreal Barnett PA-C, under the supervision of Dr. Miranda. Time spent on patient care: 7 minutes. Documented by User: Dr. Nena Miranda MD 12/08/21 17:08 Objective Data Lab / Micro Data Result Diagrams: 12/06/21 16:04 12/06/21 18:05 Charges/Coding Addendum Addendum: This patient was seen in conjunction with ALEXSANDRA Pete. I have independently interviewed and examined the patient and reviewed pertinent historical, laboratory, and other data. Please refer to ALEXSANDRA Pete's note for his patient's presentation, findings, and recommendations. I have reviewed and his note and concur with his documentation. Patient was seen and examined. He is going for surgery today. No acute events overnight. Physical Exam: Gen: Masked facies, appears comfortable, on 2 L of oxygen, not pale, not jaundiced CVS:HS I +II, regular, no murmurs RESP: Diminished at lung bases GI: BS present and normal, soft, nontender, no palpable organs EXT: Tenderness over the left hip. ASSESSMENT: 1. Acute nondisplaced impacted subcapital fracture left femur 2. Parkinson's disease with dementia 3. BPH Plan: Continue with pain control, Seroquel, Sinemet Surgery planned for this afternoon Time spent coordinating patient's care, discussing with nursing, discussing with subspecialists: 20 minutes Visit Charges Inpatient E&M: 38463 Subs Hosp L2
--- NOTE | 2021-12-08 12:27 | NURSING ---
pt to surgery
[2021-12-08] MEDS: Lactated Ringers 1,000 ML 30 ML IV (13:30)
[2021-12-08] MEDS: Cefazolin 2 GM in 0.9% Normal Saline 100 ML IV (14:19)
--- NOTE | 2021-12-08 16:40 | RAD_ITS ---
STUDY: X-RAY - PELVIS AND LEFT HIP REASON FOR EXAM: Male, 76 years old. Cemented rosio arthroplasty TECHNIQUE: 2 views of the pelvis and hip. COMPARISON: None. FINDINGS: There is a non-specific bowel gas pattern. Normal visualized soft tissue structures. Degenerative lower lumbar changes. Normal bilateral iliac wings, sacroiliac joints and visualized sacrum. Normal bilateral superior and inferior pubic rami. Normal pubic symphysis. Normal bilateral ischial tuberosities. There is a left hip prosthesis with surrounding post surgical changes. Skin jimmy are noted laterally. RAD/Hip Min 2 Views (Portable) IMPRESSION: Left hip prosthesis with postsurgical changes. Electronically Signed: Robert Ewing DO at 17:13 EST Reading Location ID and State: [facility] / [place] Tel [phone], Service support ,
[2021-12-08] MEDS: QUEtiapine 25 MG Tablet PO (20:59)
[2021-12-08] MEDS: CARBIDOPA/LEVODOPA CR 50/200 Tablet PO (20:59)
[2021-12-09] VITALS (8 sets, daily range): BP systolic 77–161; BP diastolic 54–99; PULSE 79–101; RESP 14–18; TEMP 36.4–37.3; O2SAT 90–99
[2021-12-09] MEDS: Morphine 4 MG/ML Syringe IV (04:09)
[2021-12-09] MEDS: oxyCODONE 5 MG Tablet 10 MG PO (05:04)
[2021-12-09] MEDS: Acetaminophen 325 MG Tablet 650 MG PO (05:05)
[2021-12-09] MEDS: CARBIDOPA/LEVODOPA CR 50/200 Tablet PO ×2 (05:08→22:21)
[2021-12-09] MEDS: 0.9% Normal Saline 1,000 ML 100 ML IV ×2 (05:12→17:05)
[2021-12-09 05:30] LABS: Absolute Lymphocyte Count 1.09 X10^3/uL (0.83-4.51); Absolute Neutrophil Count 6.2 X10^3/uL (2.0-7.7); Basophil# 0.04 X10^3/uL; Basophil% 0.5 % (0-1); Eosinophil# 0.02 X10^3/uL; Eosinophils% 0.2 % (0-5); Hematocrit 36.9 % (40-54); Hemoglobin 12.1 g/dL (13.0-16.5); Lymphocyte # 1.09 X10^3/ul (0.83-4.51); Lymphocyte % 13.3 % (19-41); Mean Corp Hgb Conc 32.8 g/dL (32-36); Mean Corpuscular Volume 94.6 fL (80-94); Mean Platelet Vol. 10.6 fl (6.2-12.0); Monocyte# 0.75 X10^3/uL; Monocyte% 9.1 % (0-10); NRBC Flagged by Analyzer 0 % (0-5); Neutrophil # 6.23 X10^3/uL (2.7-7.7); Platelet Count 179 K/mm3 (150-450); RBC Distribution Width CV 12.3 % (11.6-14.6); RBC Distribution Width SD 42.8 fl (35.1-43.9); White Blood Count 8.2 K/mm3 (4.4-11.0)
[2021-12-09 06:04] LABS: Anion Gap 6 (5-15); BUN 17 mg/dL (7-18); BUN/Creat Ratio 20.1 RATIO (10-20); Calcium,Total 8.4 mg/dL (8.5-10.1); Chloride 107 mmol/L (98-107); Creatinine, Serum 0.84 mg/dL (0.70-1.30); EST Glomerular Filtration Rate 94 mL/min (>60); Est Glom Filt Rate - Afr Amer 114 mL/min (>60); Estimated Creatinine Clearance 72.18 ml/min; Glucose 102 mg/dL (74-106); Potassium 4.2 mmol/L (3.5-5.1); Sodium Level 137 mmol/L (136-145)
--- NOTE | 2021-12-09 08:43 | PCM.PN.ORT ---
Subjective Subjective Patient pleasantly confused. Denies pain. Objective Data Objective Data Vital Signs: Vital Signs Temp Pulse Resp BP Pulse Ox 98.3 F 82 14 105/66 93 12/09/21 08:37 12/09/21 08:37 12/09/21 08:37 12/09/21 08:37 12/09/21 08:37 Oxygen Flow Rate (L/min) 4 Oxygen Delivery Method Blow-by Weight: 148 lb 1 oz Body Mass Index (BMI) 22.5 Intake & Output: Intake and Output for Last 24 Hours 12/07/21 12/08/21 12/09/21 23:59 23:59 23:59 Intake Total 600 / 600 1406.50 / 1506.50 1048.33 / 1048.33 Output Total 1250 / 1250 1055 / 1530 875 / 875 Balance -650 / -650 351.50 / -23.50 173.33 / 173.33 Lab / Micro Data Result Diagrams: 12/09/21 05:17 12/09/21 05:17 Labs: Laboratory Results - last 24 hr 12/09/21 05:17: WBC 8.2, RBC 3.90 L, Hgb 12.1 L, Hct 36.9 L, MCV 94.6 H, MCH 31.0, MCHC 32.8, RDW Std Deviation 42.8, RDW Coeff of Boni 12.3, Plt Count 179, MPV 10.6, Immature Gran % (Auto) 0.900, Neut % (Auto) 76.0 H, Lymph % (Auto) 13.3 L, [place] % (Auto) 9.1, Eos % (Auto) 0.2, Baso % (Auto) 0.5, Absolute Neuts (auto) 6.2, Absolute Lymphs (auto) 1.09, Nucleated RBC % 0 12/09/21 05:17: Sodium 137, Potassium 4.2, Chloride 107, Carbon Dioxide 24.0, Anion Gap 6, BUN 17, Creatinine 0.84, Estim Creat Clear Calc 72.18, Est GFR (MDRD) Af Amer 114, Est GFR (MDRD) Non-Af 94, BUN/Creatinine Ratio 20.1 H, Glucose 102, Calcium 8.4 L Micro: Microbiology 12/08/21 01:20 Nasal Secretion SARS-CoV-2 Antigen (Rapid) - Final Radiography Diagnostic Testing: Radiology Impression Hip X-Ray 12/08/21 16:40 IMPRESSION: Left hip prosthesis with postsurgical changes. Electronically Signed: Robert Ewing DO at 17:13 EST Reading Location ID and State: [facility] / [place] Tel [phone], Service support , Physical Exam Const alert and no apparent distress General Appearance: cooperative Extremity normal capillary refill, no clubbing, cyanosis or edema and no calf tenderness Right Lower Extremity: hip joint inspection Left Lower Extremity: hip joint inspection (Incision C/D/I. negative Jamila's and Willy signs.) Assessment & Plan Assessment/Plan (1) Closed fracture of left hip: QUALIFIERS: Encounter type: initial encounter Qualified Code(s): S72.002A - Fracture of unspecified part of neck of left femur, initial encounter for closed fracture PLAN: Ortho off case for now. Will re-assess at your request. D/c jimmy 10 days post-op. Continue anticoagulation x 2 weeks. WBAT F/u in office upon d/c from [facility].
[2021-12-09] MEDS: Escitalopram Oxalate 10 MG Tablet PO (08:48)
[2021-12-09] MEDS: Carbidopa/Levodopa 25/100 Tablet PO ×3 (08:48→17:42)
--- NOTE | 2021-12-09 11:23 | PCM.PN.HOSP ---
Documented by User: Isreal UPTON 12/09/21 11:28 Subjective Subjective Patient is a 76-year-old male comfortably resting in bed, alert oriented to self. Patient is pleasantly confused, however cannot provide much insight into current condition as he is chronically confused at baseline secondary to dementia. Objective Data Objective Data Vital Signs: Vital Signs Temp Pulse Resp BP Pulse Ox 98.0 F 79 16 77/54 L 92 12/09/21 10:35 12/09/21 10:35 12/09/21 10:35 12/09/21 10:35 12/09/21 10:35 Oxygen Flow Rate (L/min) 4 Oxygen Delivery Method Room Air Weight: 148 lb 1 oz Body Mass Index (BMI) 22.5 Intake & Output: Intake and Output for Last 24 Hours 12/07/21 12/08/21 12/09/21 23:59 23:59 23:59 Intake Total 600 / 600 1406.50 / 1506.50 2095.00 / 2095.00 Output Total 1250 / 1250 1055 / 1530 875 / 875 Balance -650 / -650 351.50 / -23.50 1220.00 / 1220.00 Lab / Micro Data Result Diagrams: 12/09/21 05:17 12/09/21 05:17 Labs: Laboratory Results - last 24 hr 12/09/21 05:17: WBC 8.2, RBC 3.90 L, Hgb 12.1 L, Hct 36.9 L, MCV 94.6 H, MCH 31.0, MCHC 32.8, RDW Std Deviation 42.8, RDW Coeff of Boni 12.3, Plt Count 179, MPV 10.6, Immature Gran % (Auto) 0.900, Neut % (Auto) 76.0 H, Lymph % (Auto) 13.3 L, [place] % (Auto) 9.1, Eos % (Auto) 0.2, Baso % (Auto) 0.5, Absolute Neuts (auto) 6.2, Absolute Lymphs (auto) 1.09, Nucleated RBC % 0 12/09/21 05:17: Sodium 137, Potassium 4.2, Chloride 107, Carbon Dioxide 24.0, Anion Gap 6, BUN 17, Creatinine 0.84, Estim Creat Clear Calc 72.18, Est GFR (MDRD) Af Amer 114, Est GFR (MDRD) Non-Af 94, BUN/Creatinine Ratio 20.1 H, Glucose 102, Calcium 8.4 L Micro: Microbiology 12/08/21 01:20 Nasal Secretion SARS-CoV-2 Antigen (Rapid) - Final Radiography Diagnostic Testing: Radiology Impression Hip X-Ray 12/08/21 16:40 IMPRESSION: Left hip prosthesis with postsurgical changes. Electronically Signed: Robert Ewing DO at 17:13 EST Reading Location ID and State: [facility] / [place] Tel [phone], Service support , Physical Exam Const alert and no apparent distress HEENT head/scalp atraumatic and moist oral mucous membranes Head and Scalp: normocephalic Eyes PERRL, EOMs intact bilaterally and conjunctivae normal Neck no lymphadenopathy, supple and no JVD Resp normal respiratory effort, no retractions and no use of accessory muscles Cardio regular rate, regular rhythm and no JVD GI normal to inspection, nondistended, normoactive bowel sounds Extremity normal to inspection Skin no rashes or lesions noted Neuro CN's II-XII intact bilaterally Psych affect normal Assessment & Plan Assessment/Plan (1) Closed fracture of left hip: QUALIFIERS: Encounter type: initial encounter Qualified Code(s): S72.002A - Fracture of unspecified part of neck of left femur, initial encounter for closed fracture PLAN: Day 3 Discharge planning: Rehab vs TCU pending decision from Dr. Dunaway. 1) closed left hip fracture POD 1 s/p cemented hemiarthroplasty of left hip. Management per orthopedics: Remove jimmy 10 days postop, initiate Xarelto 10 mg daily for postsurgical DVT prophylaxis, weightbearing as tolerated and follow-up with Dr. Villarreal when discharged from [facility]. 2) Parkinson's disease Continue Sinemet. 3) BPH Continue Flomax. 4) dementia/depression Continue Seroquel. DVT prophylaxis - Xarelto. Patient seen by Isreal Barnett PA-C, under the supervision of Dr. Miranda. Time spent on patient care: 7 minutes. Documented by User: Dr. Nena Miranda MD 12/09/21 13:23 Objective Data Lab / Micro Data Result Diagrams: 12/09/21 05:17 12/09/21 05:17 Charges/Coding Addendum Addendum: This patient was seen in conjunction with ALEXSANDRA Pete. I have independently interviewed and examined the patient and reviewed pertinent historical, laboratory, and other data. Please refer to ALEXSANDRA Pete's note for his patient's presentation, findings, and recommendations. I have reviewed and his note and concur with his documentation. Patient was seen and examined. He was found to be hypotensive today. Systolic blood pressure was in the 70s. He however is not symptomatic of it. He denies any fever or chills. Physical Exam: Gen: Masked facies, appears comfortable, on 2 L of oxygen, not pale, not jaundiced CVS:HS I +II, regular, no murmurs RESP: Diminished at lung bases GI: BS present and normal, soft, nontender, no palpable organs EXT: Tenderness over the left hip. ASSESSMENT: 1. Postop day #1 status post cemented left hemiarthroplasty acute nondisplaced impacted subcapital fracture left femur 2. Postop hypotension 3. Parkinson's disease with dementia 4. BPH Plan: IV fluid bolus, continue on maintenance IV fluids Monitor blood pressures Continue with pain control, Seroquel, Sinemet Continue on Xarelto for 2 weeks per orthopedics PT and OT to evaluate and treat, weightbearing as tolerated Discharge planning possibly to ECF Time spent coordinating patient's care, discussing with nursing, : 18 minutes Visit Charges Inpatient E&M: 39677 Subs Hosp L2
[2021-12-09] MEDS: Rivaroxaban 10 MG Tablet PO (13:52)
[2021-12-09] MEDS: Acetaminophen 500 MG Tablet 1000 MG PO ×2 (13:52→22:11)
[2021-12-09] MEDS: QUEtiapine 25 MG Tablet PO (22:21)
[2021-12-09] MEDS: Tamsulosin HCl 0.4 MG Capsule PO (22:21)
[2021-12-09] MEDS: Senna/Docusate Sodium 1 Tablet 2 TABLET PO (22:21)
[2021-12-10] MEDS: 0.9% Normal Saline 1,000 ML 100 ML IV (02:56)
[2021-12-10 02:58] VITALS: BP 107/80; PULSE 101; RESP 16; TEMP 36.6; O2SAT 94
[2021-12-10 05:58] LABS: Absolute Lymphocyte Count 1.35 X10^3/uL (0.83-4.51); Absolute Neutrophil Count 5.1 X10^3/uL (2.0-7.7); Basophil# 0.03 X10^3/uL; Basophil% 0.4 % (0-1); Eosinophil# 0.14 X10^3/uL; Eosinophils% 1.9 % (0-5); Hemoglobin 11.9 g/dL (13.0-16.5); Lymphocyte # 1.35 X10^3/ul (0.83-4.51); Lymphocyte % 18.3 % (19-41); Mean Corpuscular Hgb 32.3 pg (27.0-32.0); Mean Corpuscular Volume 95.1 fL (80-94); Mean Platelet Vol. 10.9 fl (6.2-12.0); Monocyte# 0.64 X10^3/uL; Monocyte% 8.7 % (0-10); NRBC Flagged by Analyzer 0 % (0-5); Neutrophil # 5.14 X10^3/uL (2.7-7.7); Neutrophil % 69.6 % (47-70); Platelet Count 167 K/mm3 (150-450); RBC Distribution Width CV 12.3 % (11.6-14.6); RBC Distribution Width SD 42.8 fl (35.1-43.9); Red Blood Count 3.68 M/mm3 (4.6-6.2); White Blood Count 7.4 K/mm3 (4.4-11.0)
[2021-12-10] MEDS: Acetaminophen 500 MG Tablet 1000 MG PO ×3 (06:38→21:52)
[2021-12-10 10:07] VITALS: BP 129/75; PULSE 89; RESP 18; TEMP 36.8; O2SAT 97
[2021-12-10] MEDS: Senna/Docusate Sodium 1 Tablet 2 TABLET PO (10:15)
[2021-12-10] MEDS: Rivaroxaban 10 MG Tablet PO (10:15)
[2021-12-10] MEDS: Carbidopa/Levodopa 25/100 Tablet PO ×3 (10:15→17:44)
[2021-12-10] MEDS: Escitalopram Oxalate 10 MG Tablet PO (10:15)
--- NOTE | 2021-12-10 11:11 | PCM.PN.HOSP ---
Documented by User: Isreal UPTON 12/10/21 11:14 Subjective Subjective Patient is a 76-year-old male lying in bed, alert oriented to self. Patient unable to provide much insight into current condition as he is chronically confused. Objective Data Objective Data Vital Signs: Vital Signs Temp Pulse Resp BP Pulse Ox 98.3 F 89 18 129/75 H 97 12/10/21 10:07 12/10/21 10:07 12/10/21 10:07 12/10/21 10:07 12/10/21 10:07 Oxygen Flow Rate (L/min) 4 Oxygen Delivery Method Room Air Weight: 148 lb 1 oz Body Mass Index (BMI) 22.5 Intake & Output: Intake and Output for Last 24 Hours 12/08/21 12/09/21 12/10/21 23:59 23:59 23:59 Intake Total 1406.50 / 1506.50 2898.33 / 2898.33 985 / 985 Output Total 1055 / 1530 1225 / 1775 1100 / 1100 Balance 351.50 / -23.50 1673.33 / 1123.33 -115 / -115 Lab / Micro Data Result Diagrams: 12/10/21 05:30 12/09/21 05:17 Labs: Laboratory Results - last 24 hr 12/10/21 05:30: WBC 7.4, RBC 3.68 L, Hgb 11.9 L, Hct 35.0 L, MCV 95.1 H, MCH 32.3 H, MCHC 34.0, RDW Std Deviation 42.8, RDW Coeff of Boni 12.3, Plt Count 167, MPV 10.9, Immature Gran % (Auto) 1.100 H, Neut % (Auto) 69.6, Lymph % (Auto) 18.3 L, [place] % (Auto) 8.7, Eos % (Auto) 1.9, Baso % (Auto) 0.4, Absolute Neuts (auto) 5.1, Absolute Lymphs (auto) 1.35, Nucleated RBC % 0 Micro: Microbiology 12/08/21 01:20 Nasal Secretion SARS-CoV-2 Antigen (Rapid) - Final Physical Exam Const alert and no apparent distress HEENT head/scalp atraumatic and moist oral mucous membranes Head and Scalp: normocephalic Eyes PERRL and conjunctivae normal Neck no lymphadenopathy, supple and no JVD Resp normal respiratory effort, no retractions and no use of accessory muscles Cardio regular rate, regular rhythm and no JVD GI normal to inspection, nondistended, normoactive bowel sounds Extremity normal to inspection Skin no rashes or lesions noted Neuro CN's II-XII intact bilaterally Psych affect normal Assessment & Plan Assessment/Plan (1) Closed fracture of left hip: QUALIFIERS: Encounter type: initial encounter Qualified Code(s): S72.002A - Fracture of unspecified part of neck of left femur, initial encounter for closed fracture PLAN: Day 4 Discharge planning: Rehab vs TCU, to be determined on 12/11/21. 1) closed left hip fracture POD 2 s/p cemented hemiarthroplasty of left hip. Management per orthopedics: Remove jimmy 10 days postop, initiate Xarelto 10 mg daily for postsurgical DVT prophylaxis x14 days, weightbearing as tolerated and follow-up with Dr. Villarreal when discharged from [facility]. 2) Parkinson's disease Continue Sinemet. 3) BPH Continue Flomax. 4) dementia/depression Continue Seroquel. DVT prophylaxis - Xarelto. Patient seen by Isreal Barnett PA-C, under the supervision of Dr. Miranda. Time spent on patient care: 7 minutes. Documented by User: Dr. Nena Miranda MD 12/10/21 14:48 Objective Data Lab / Micro Data Result Diagrams: 12/10/21 05:30 12/09/21 05:17 Charges/Coding Addendum Addendum: This patient was seen in conjunction with ALEXSANDRA Pete. I have independently interviewed and examined the patient and reviewed pertinent historical, laboratory, and other data. Please refer to ALEXSANDRA Pete's note for his patient's presentation, findings, and recommendations. I have reviewed and his note and concur with his documentation. Patient was seen and examined. He denies any new complaints. He stated his pain was controlled. His is at the bedside. No acute events overnight. All questions answered. Physical Exam: Gen: Masked facies, appears comfortable, off oxygen, not pale, not jaundiced CVS:HS I +II, regular, no murmurs RESP: Diminished at lung bases GI: BS present and normal, soft, nontender, no palpable organs EXT: Tenderness over the left hip. ASSESSMENT: 1. Postop day #2 status post cemented left hemiarthroplasty acute nondisplaced impacted subcapital fracture left femur 2. Postop hypotension 3. Parkinson's disease with dementia 4. BPH Plan: Discontinue IV fluids as patient is able to maintain adequate oral intake Continue with pain control, Seroquel, Sinemet Continue on Xarelto for 2 weeks per orthopedics PT and OT to evaluate and treat, weightbearing as tolerated Discharge planning possibly to ECF Time spent coordinating patient's care, discussing with nursing, : 15 minutes Visit Charges Inpatient E&M: 20704 Subs Hosp L2
[2021-12-10] MEDS: oxyCODONE 5 MG Tablet PO (12:09)
[2021-12-10 16:07] VITALS: BP 99/62; PULSE 90; RESP 18; TEMP 36.9; O2SAT 95
[2021-12-10] MEDS: Tamsulosin HCl 0.4 MG Capsule PO (21:52)
[2021-12-10] MEDS: QUEtiapine 25 MG Tablet PO (21:52)
[2021-12-10] MEDS: CARBIDOPA/LEVODOPA CR 50/200 Tablet PO (21:52)
[2021-12-10 21:58] VITALS: BP 151/90; PULSE 92; RESP 18; TEMP 36.7; O2SAT 97
[2021-12-11] MEDS: Acetaminophen 500 MG Tablet 1000 MG PO ×2 (06:04→15:30)
[2021-12-11] MEDS: CARBIDOPA/LEVODOPA CR 50/200 Tablet PO (06:05)
[2021-12-11 06:09] VITALS: BP 134/94; PULSE 87; RESP 16; TEMP 36.7; O2SAT 97
--- NOTE | 2021-12-11 09:12 | PN.HOSP_ITS ---
Objective Data Objective Data Vital Signs: Vital Signs Temp Pulse Resp BP Pulse Ox 98.0 F 87 16 134/94 H 97 12/11/21 06:09 12/11/21 06:09 12/11/21 06:09 12/11/21 06:09 12/11/21 06:09 Oxygen Flow Rate (L/min) 4 Oxygen Delivery Method Room Air Weight: 148 lb 1 oz Body Mass Index (BMI) 22.5 Intake & Output: Intake and Output for Last 24 Hours 12/09/21 12/10/21 12/11/21 23:59 23:59 23:59 Intake Total 2898.33 / 2898.33 2473 / 2473 Output Total 1225 / 1775 1800 / 1800 Balance 1673.33 / 1123.33 673 / 673 Lab / Micro Data Result Diagrams: 12/10/21 05:30 12/09/21 05:17 Micro: Microbiology 12/08/21 01:20 Nasal Secretion SARS-CoV-2 Antigen (Rapid) - Final Physical Exam Const General Appearance: cooperative HEENT normocephalic and hearing grossly normal bilaterally Extremity Extremity Narrative: Shortened left lower extremity compared to the right. Neuro Neuro Narrative: Pleasantly confused. Assessment & Plan Assessment/Plan (1) Closed fracture of left hip: QUALIFIERS: Encounter type: initial encounter Qualified Code(s): S72.002A - Fracture of unspecified part of neck of left femur, initial encounter for closed fracture PLAN: Day 4 Discharge planning: Rehab vs TCU, to be determined on 12/11/21. 1) closed left hip fracture POD 2 s/p cemented hemiarthroplasty of left hip. Management per orthopedics: Remove jimmy 10 days postop, initiate Xarelto 10 mg daily for postsurgical DVT prophylaxis x14 days, weightbearing as tolerated and follow-up with Dr. Villarreal when discharged from [facility]. 2) Parkinson's disease Continue Sinemet. 3) BPH Continue Flomax. 4) dementia/depression Continue Seroquel. DVT prophylaxis - Xarelto. Patient seen by Isreal Barnett PA-C, under the supervision of Dr. Miranda. Time spent on patient care: 7 minutes.
[2021-12-11] MEDS: Senna/Docusate Sodium 1 Tablet 2 TABLET PO (09:46)
[2021-12-11] MEDS: Carbidopa/Levodopa 25/100 Tablet PO ×2 (09:47→15:31)
[2021-12-11] MEDS: Rivaroxaban 10 MG Tablet PO (09:47)
[2021-12-11] MEDS: Escitalopram Oxalate 10 MG Tablet PO (09:47)
--- NOTE | 2021-12-11 10:26 | TREXTCAR_ITS ---
Diet 12/06/21 17:39 Diet: Regular - General Food consistency:: Regular Liquid Consistency:: Regular/Thin Type of Dietary Supplement:: Ensure Enlive Diet Comments: 120mL w/ meals Routine Orders/Code Status Suppository Type: Dulcolax 10mg Suppository Frequency: Daily PRN Code Status: Full Code Wound(s) LEFT KNEE: Wound Type: Abrasion left hip: Wound Type: Surgical Incision Therapies Weight Bearing: Weight bearing as tolerated Extremity Affected:: Left Lower Physical Therapy: Eval and Treat Occupational Therapy: Eval and Treat Speech Therapy: Eval and Treat Problem/Diagnosis (1) Closed fracture of left hip: Status: Acute Comment: To OR for cemented hemiarthroplasty of left hip. Potential risks, benefits and complications reviewed. Allergies/Procedures Done in Hospital Allergies pregabalin [From Lyrica] Adverse Reaction (Severe, Verified 12/06/21 13:15) hallucinations Type of Care/Length of Stay Estimated LOS: Convalescent Care Less Than 30 days Type of Care Needed: Skilled Rehab Potential: Good Prognosis: Good Additional Orders/Day of Discharge Day of Discharge: 12/11/21 Dietary and Speech Recommendations Dietitian Recommendations/Changes: continue regular diet with addition of Ensure Complete TID. Discharge Plan Admission Admit Date/Time: 12/06/21 15:47 Attending Provider: Yuri Villafana Primary Care Provider: Casper Do Consulting Providers: Gennaro Villarreal Discharge Orders/Prescriptions Prescriptions: New acetaminophen 500 mg Tablet 1,000 mg PO TID PRN (Reason: PAIN) Qty: 0 RF: 0 Xarelto 10 mg Tablet 10 mg PO DAILY Qty: 0 RF: 0 sennosides-docusate sodium [Stool Softener-Stimulant Laxat] 8.6-50 mg Tablet 2 tab PO BID Qty: 0 RF: 0 dicyclomine 10 mg Capsule 20 mg PO BID PRN (Reason: abdominal cramping) Qty: 0 RF: 0 oxycodone 5 mg Tablet 5 mg PO Q4H PRN PRN (Reason: Pain Score 4-5) 3 Days Qty: 10 RF: 0 escitalopram oxalate 10 mg Tablet 10 mg PO DAILY Qty: 0 RF: 0 Continued (DME) walker Qty: 1 RF: 0 carbidopa-levodopa [Sinemet] 25-100 mg Tablet 1 tab PO TIDCM@0900,1300,1800 RF: 0 escitalopram oxalate [Lexapro] 10 mg Tablet 10 mg PO DAILY RF: 0 carbidopa-levodopa 50-200 mg Tablet Extended Release 1 tab PO BID RF: 0 (DME) hospital bed Qty: 1 RF: 0 quetiapine 25 mg tablet 25 mg PO QHS Qty: 30 RF: 1 tamsulosin 0.4 mg capsule 0.4 mg PO QHS Qty: 30 RF: 3 Changed ibuprofen 200 mg Tablet 400 mg PO BID PRN (Reason: Pain) Qty: 0 RF: 0 Discontinued Emily-[place] Plus 2-20-325 mg Tablet, Effervescent 1 ea PO DAILY PRN PRN (Reason: Stomach Upset) RF: 0 (DME) hospital bed Qty: 1 RF: 0 tramadol 50 mg tablet 50 mg PO Q6H MDD 5 a day PRN (Reason: pain) Qty: 150 RF: 0 Referrals / Follow Up: Casper Do DO [Primary Care Provider] - Within 2 Weeks Gennaro Villarreal DO [STAFF PHYSICIAN] - In 1 Week (POST OP Left hip surgery)
--- NOTE | 2021-12-11 10:31 | CASEMGMT ---
Social Work SW called in regard to discharge plan, as pt is confused at present. is in agreement with pt going somewhere for rehab. SW offered to review the list of correction facilities in pt's preferred geographic area that takes pt's insurance complete with quality and resource use data. However, [facility] SW explained will check on availability, and it is anticipated pt will be able to go today or tomorrow. SW did review with the SNF Medicare benefit, and also made her aware the length of stay in TCU is 30 days or less. Her goal is to get pt home from rehab. SW explained we will let her know if pt is able to discharge today vs tomorrow. SW called TCU, referral made. Dora to let SW know if they can take pt. is coming in, will follow up w/her once she is here. CHRISTIANO Santamaria
--- NOTE | 2021-12-11 12:09 | DS.PCM_ITS ---
Providers Date of Admission: 12/06/21 Date of Discharge: 12/11/21 Primary Care Physician: Dr. Casper Do, DO Consultations 12/06/21 17:39 Consult: Orthopedics Routine Consulting Provider: Gennaro Villarreal Reason for Consult: left hip fracture EMERGENT Consult: No MD Notified: Yes Date Notified: 12/06/21 Time Notified: 16:01 Method of Notification: Verbal Reason For Visit: left hip fracture Diagnosis Discharge Diagnosis (1) Closed fracture of left hip: Status: Acute Code(s): S72.002A - Fracture of unspecified part of neck of left femur, initial encounter for closed fracture Qualifiers: Encounter type: initial encounter Qualified Code(s): S72.002A - Fracture of unspecified part of neck of left femur, initial encounter for closed fracture Medications at Discharge Home Medications hospital bed #1 ea 02/23/20 walker #1 ea 04/14/20 carbidopa-levodopa [Sinemet] 1 tab PO TIDCM@0900,1300,1800 02/24/21 quetiapine 25 mg tablet 25 mg PO QHS #30 tab 06/05/21 tamsulosin 0.4 mg capsule 0.4 mg PO QHS #30 cap 12/05/21 carbidopa-levodopa 1 tab PO BID 12/07/21 escitalopram oxalate [Lexapro] 10 mg PO DAILY 12/07/21 acetaminophen 1,000 mg PO TID PRN #0 tab 12/11/21 dicyclomine 20 mg PO BID PRN #0 cap 12/11/21 escitalopram oxalate 10 mg PO DAILY #0 tab 12/11/21 ibuprofen 400 mg PO BID PRN #0 tab 12/11/21 oxycodone 5 mg PO Q4H PRN PRN 3 Days #10 tab 12/11/21 rivaroxaban [Xarelto] 10 mg PO DAILY #0 tab 12/11/21 sennosides-docusate sodium [Stool Softener-Stimulant Laxat] 2 tab PO BID #0 tab 12/11/21 Hospital Course Summary of Care Provided Hospital Course: This is a 76-year-old male admitted with left hip pain with history of Parkinson's disease and recurrent fall. Patient fell on the day of admission on left hip and severe pain, unable to bear weight. In ED was found to have nondisplaced impacted left subcapital fracture proximal left femur. 1) acute closed, nondisplaced impacted left subcapital fracture proximal left femur most likely pathological from osteoporosis. Patient had surgery on 12/07/2021. Dressing is dry. Patient is discharged on 35 days of Xarelto 10 mg daily DVT prophylaxis. Discharge to SNF for further rehab. 2) Parkinson's disease Continue Sinemet home dose. Follow-up with neurologist. 3) BPH Continue Flomax. 4) dementia/depression Continue Seroquel. DVT prophylaxis - Xarelto. Discharge medication reconciliation done. Discharge follow-up instructions completed. Discharge process discussed with the patient and all questions were answered to patient's satisfaction. Total time spent, exact 35 minutes on discharge meds reconciliation, examination, coordination of care with nurses and ancillary staff, review of imaging and blood test and discussion with the patient on follow-up instructions. Physical Exam Narrative General: Confused, disoriented to time and place. HEENT: Atraumatic, PERRLA, EOMI, Normocephalic Oral: No Gingival or Mucosal Lesions/ Ulcerations Neck: Supple, No JVD, Negative Carotid Bruits Lungs: Air entry diminished in bilateral lung bases. No crepitation/rhonchi Cardiovascular: Regular rate, Regular Rhythm, Normal S1, Normal S2, No murmurs Abdomen: Bowel Sounds Present, Soft, Non Tender, Non-Distended : No renal angle tenderness. No suprapubic tenderness. Extremities: No edema, Capillary Refill Less than 3 Seconds Skin: No rashes, No breakdown Musculoskeletal: Dressing dry over left hip. No Tenderness to Palpation of Joints or Extremities Neurological: Cranial nerves II-XII grossly intact, muscle stiffness left knee and hip joints. Neuropathy over lower legs. Psych/Mental Status: Flat affect. Weight / BMI Weight Weight: 148 lb 1 oz Body Mass Index (BMI) 22.5 ABG / Lab / Microbiology Data Result Diagrams: 12/10/21 05:30 12/09/21 05:17 Microbiology: Microbiology 12/08/21 01:20 Nasal Secretion SARS-CoV-2 Antigen (Rapid) - Final Meaningful Use Info Meaningful Use Diagnoses (Choose all that apply): None applicable Discharge Plan Admission Admit Date/Time: 12/06/21 15:47 Attending Provider: Yuri Villafana Primary Care Provider: Casper Do Consulting Providers: Gennaro Villarreal Discharge Orders/Prescriptions Prescriptions: New acetaminophen 500 mg Tablet 1,000 mg PO TID PRN (Reason: PAIN) Qty: 0 RF: 0 Xarelto 10 mg Tablet 10 mg PO DAILY Qty: 0 RF: 0 sennosides-docusate sodium [Stool Softener-Stimulant Laxat] 8.6-50 mg Tablet 2 tab PO BID Qty: 0 RF: 0 dicyclomine 10 mg Capsule 20 mg PO BID PRN (Reason: abdominal cramping) Qty: 0 RF: 0 oxycodone 5 mg Tablet 5 mg PO Q4H PRN PRN (Reason: Pain Score 4-5) 3 Days Qty: 10 RF: 0 escitalopram oxalate 10 mg Tablet 10 mg PO DAILY Qty: 0 RF: 0 Continued (DME) walker Qty: 1 RF: 0 carbidopa-levodopa [Sinemet] 25-100 mg Tablet 1 tab PO TIDCM@0900,1300,1800 RF: 0 escitalopram oxalate [Lexapro] 10 mg Tablet 10 mg PO DAILY RF: 0 carbidopa-levodopa 50-200 mg Tablet Extended Release 1 tab PO BID RF: 0 (DME) hospital bed Qty: 1 RF: 0 quetiapine 25 mg tablet 25 mg PO QHS Qty: 30 RF: 1 tamsulosin 0.4 mg capsule 0.4 mg PO QHS Qty: 30 RF: 3 Changed ibuprofen 200 mg Tablet 400 mg PO BID PRN (Reason: Pain) Qty: 0 RF: 0 Discontinued Emily-[place] Plus 2-20-325 mg Tablet, Effervescent 1 ea PO DAILY PRN PRN (Reason: Stomach Upset) RF: 0 (DME) hospital bed Qty: 1 RF: 0 tramadol 50 mg tablet 50 mg PO Q6H MDD 5 a day PRN (Reason: pain) Qty: 150 RF: 0 Referrals / Follow Up: Casper Do DO [Primary Care Provider] - Within 2 Weeks Gennaro Villarreal DO [STAFF PHYSICIAN] - In 1 Week (POST OP Left hip surgery) Disposition Discharge Orders: Discharge Patient (Routine); Ordered 12/11/21 Ordered By: Dr. Yuri Villafana Charges/Coding Visit Charges Inpatient E&M: 27617 Disch Hosp
--- NOTE | 2021-12-11 12:33 | CASEMGMT ---
Social Work Note SW in to speak with pt and pt's Jennifer. SANDRA spoke with pt and Jennifer regarding SNF. SANDRA explained that pt will need to be in isolation until December 21 on TCU as they are in outbreak status. Jennifer states that she may not want pt to go there now if pt cannot leave his room. SANDRA asked Jennifer about pt's vaccination status. Jennifer states that pt has had both COVID shots and has had booster. SANDRA informed Jennifer that this worker will check with TCU since pt is vaccinated. SANDRA placed a call to Dora with TCU. For correction now, pt has to have both vaccines for COVID and booster to be considered fully vaccinated. Dora states that if pt has had both COVID vaccines and booster, pt is considered fully vaccinated and pt will not have to be in isolation. SANDRA back in to speak with pt and Jennifer. SANDRA updated Jennifer that since pt is fully vaccinated, he will not need to be in isolation. SANDRA asked Jennifer if she has copy of pt's vaccination card. Jennifer states she doesn't know where it is at since pt likes to hide his wallet and she can't find it. Jennifer states she will call [employer] to get copy of pt's vaccination card. SANDRA informed Jennifer that the vaccination card will be needed for TCU. Jennifer states understanding. Jennifer is agreeable to TCU. SANDRA updated physician. Pt to discharge to TCU today. SANDRA placed a call to Dora with TCU and updated her. Plan: TCU today Cristina Calvo RETAIL CUSTOMER SERVICE SPECIALIST, RADIATOR FITTER
--- NOTE | 2021-12-11 13:28 | CASEMGMT ---
Addendum entered by Cristina Calvo 12/11/21 15:50: SANDRA received copy of pt's Vaccination record. SANDRA placed a call to Dora with TCU and updated. Dora states to tube over pt's Vaccination record so staff can put record on pt's chart. SANDRA tubed pt's Vaccination Record to TCU. Addendum entered by Cristina Calvo 12/11/21 15:40: Pt's Jennifer is back at [facility]. Jennifer states she tried to go to [facility] and was told that this worker needed to request copy of pt's Vaccination records as [facility] was not able to provide those to her. Jennifer provided this worker with [facility]'s business card and was informed to speak with Huber Reed. SANDRA placed a call to [facility] and spoke wtih Huber Reed. SANDRA requested copy of pt's COVID vaccinations. Huber states he will fax over information to this worker. Original Note: Social Work Note Discharge is in for today. SANDRA placed a call to pt's Jennifer and updated her that pt will discharge to TCU today. Jennifer states understanding. SANDRA updated RN. Plan: TCU today Cristina Calvo AGRICULTURE CONSULTANT, PROCESSING MGR
[2021-12-11 14:20] VITALS: BP 116/70; PULSE 86; RESP 16; TEMP 36.4; O2SAT 96
[2021-12-11 14:22] VITALS: BP 116/70; PULSE 86; RESP 18; TEMP 36.4; O2SAT 96
== END 2021-12-11 16:39 | disposition skilled nursing facility (03) | DRG 522 ==
LOC: ED 15:41 → MS3 15:59
PROVIDERS: Orthopaedic Surgery; Physician Assistant; Emergency Provider Emergency Medicine; PCP Family Medicine; Visit Provider Internal Medicine
PROC: (CPT 27125; principal; 2021-12-08 13:10)
DX: M80.052A Age-related osteoporosis with current pathological fracture, left femur, initial encounter for fracture (principal); F02.80 Dementia in other diseases classified elsewhere, unspecified severity, without behavioral disturbance, psychotic disturbance, mood disturbance, and anxiety; G20 Parkinson's disease; J44.9 Chronic obstructive pulmonary disease, unspecified; G31.83 Neurocognitive disorder with Lewy bodies; I25.10 Atherosclerotic heart disease of native coronary artery without angina pectoris; N40.0 Benign prostatic hyperplasia without lower urinary tract symptoms; I95.81 Postprocedural hypotension; I73.00 Raynaud's syndrome without gangrene; Z87.891 Personal history of nicotine dependence; F32.A Depression, unspecified; Z79.01 Long term (current) use of anticoagulants; R29.6 Repeated falls
CPT/HCPCS: 36415; 71045; 73502; 80048; 80053; 81001; 82306; 85025; 87426; 88305; 88311; 93005; 97162; 97166; 97530; 97802; 99285; C1776; J7030; J7040; J7120; A4216; J2405

== ENCOUNTER 2021-12-11 16:46 | Inpatient (IN) | payer MEDICARE, OTHER, SELFPAY ==
[2021-12-11 16:55] VITALS: BP 135/87; PULSE 84; RESP 17; TEMP 36.8; O2SAT 96
[2021-12-11 17:23] VITALS: BMI 21.1
[2021-12-11] MEDS: oxyCODONE 5 MG Tablet PO (17:57)
--- NOTE | 2021-12-11 18:12 | NURSING ---
Spoke with Dr. Villafana, per his order pt is to take Carbidopa-levodopa 50-200 mg ER BID and Carbidopa-levodpa 25-100 @ 0900,1300, and 1800. Order repeated back, will add order.
--- NOTE | 2021-12-11 20:11 | HP.PCM_ITS ---
HPI - General General Date of Admission: 12/11/21 HPI Narrative 12/06/2021 NIKOLAS HANSON, is a 76 Male who presents to [facility] Emergency Department with fall. 12/06/2021 EKG normal sinus rhythm, left axis devaiation, abnormal EKG. Fall on left hip, frequent falls x 2 weeks. Patient has Parkinson Disease, walks with walker at baseline. He has Parkinson Disease dementia, he is confused, and has visual hallucinations. X-ray shows left hip fracture. 12/06/2021 Admit to Hospital. Prepare for surgery. 12/08/2021 Dr. Villarreal performed left hip hemiarthroplasty. Xarelto 10mg daily for DVT prophylaxis. 12/10/2021 RU versus TCU. 12/11/2021 Xarelto 10mg daily x 35 days for DVT prophylaxis. 12/11/2021 Admit to TCU with debility, here for rehabilitation, strengthening, prior to discharge home with . FORMERLY [facility], [facility] Medical History (Updated 12/11/21 @ 20:[address] Christian Burrell MD) Abdominal aortic aneurysm Atherosclerotic heart disease of [place] coronary artery without angina pectoris Former smoker Parkinson's disease Raynauds disease Home Medications hospital bed #1 ea 02/23/20 [History Last Taken Unknown] walker #1 ea 04/14/20 [Rx Last Taken Unknown] carbidopa-levodopa [Sinemet] 1 tab PO TIDCM@0900,1300,1800 02/24/21 [History Last Taken 12/06/21] quetiapine 25 mg tablet 25 mg PO QHS #30 tab 06/05/21 [Rx Last Taken 12/05/21] tamsulosin 0.4 mg capsule 0.4 mg PO QHS #30 cap 12/05/21 [Rx Last Taken 12/05/21] carbidopa-levodopa 1 tab PO BID 12/07/21 [History Last Taken Unknown] escitalopram oxalate [Lexapro] 10 mg PO DAILY 12/07/21 [History Last Taken Unkno wn] acetaminophen 1,000 mg PO TID PRN #0 tab 12/11/21 [Rx Last Taken Unknown] dicyclomine 20 mg PO BID PRN #0 cap 12/11/21 [Rx Last Taken Unknown] escitalopram oxalate 10 mg PO DAILY #0 tab 12/11/21 [Rx Last Taken Unknown] ibuprofen 400 mg PO BID PRN #0 tab 12/11/21 [Rx Last Taken 12/05/21] oxycodone 5 mg PO Q4H PRN PRN 12/11/21 [History Last Taken Unknown] rivaroxaban [Xarelto] 10 mg PO DAILY 12/11/21 [History Last Taken Unknown] sennosides-docusate sodium [Stool Softener-Stimulant Laxat] 2 tab PO BID 12/11/21 [History Last Taken Unknown] Allergy/AdvReac Type Severity Reaction Status Date / Time pregabalin [From Lyrica] AdvReac Severe hallucinati Verified 12/06/21 13:15 ons Family History Brother Alcoholism Father Heart disease Myocardial infarction Uncle Heart disease Myocardial infarction Grandfather Heart disease Myocardial infarction Mother Heart disease Surgical History (Updated 12/11/21 @ 20:[address] Christian Burrell MD) History of cataract surgery History of colonoscopy History of left hip hemiarthroplasty History of tonsillectomy Social History household members: spouse Smoking Status: Former smoker how long ago did patient quit smokin alcohol intake: never substance use type: does not use what type of physical activity do you participate in: walking frequency: daily ROS Constitutional Constitutional: Denies chills, fever(s) or weight gain ENT HEENT: Denies headache(s), nasal congestion or nasal discharge Cardiovascular Cardiovascular: Denies chest pain or palpitations Respiratory/Chest Respiratory/Chest: Denies cough, excessive phlegm production or shortness of breath with exertion Gastrointestinal Gastrointestinal: Denies abdominal pain, nausea or vomiting Genitourinary Genitourinary: Denies dysuria Musculoskeletal Musculoskeletal: Denies joint pain or joint swelling Integumentary Integumentary: Denies rash or wounds Neurologic Neurologic: Denies focal weakness, numbness or tingling Psychiatric Psychiatric: Denies anxiety, auditory hallucinations, depression, homicidal ideation or suicidal ideation Vital Signs Vital Signs Vital Signs: 12/11/21 16:55 Temperature 98.2 F Temperature Source Temporal Pulse Rate 84 Respiratory Rate 17 Blood Pressure 135/87 H Blood Pressure Mean 103 Blood Pressure Source Monitor Blood Pressure Position Sitting Blood Pressure Location Left Arm Pulse Ox 96 Oxygen Delivery Method Room Air Weight Weight: 63.049 kg Body Mass Index (BMI) 21.1 Physical Exam Const alert and oriented x3 General Appearance: cooperative HEENT normocephalic Eyes PERRL and EOMs intact bilaterally Neck supple, no JVD and no carotid bruits Resp normal respiratory effort, normal air movement and clear to auscultation bilaterally Cardio regular rate and regular rhythm GI normal to inspection, nondistended, normoactive bowel sounds, non-tender and non-distended Extremity normal capillary refill General Extremity: Negative for edema Skin no rashes or lesions noted General Skin Exam: no breakdown Psych affect normal Appearance: appropriate Assessment & Plan Assessment/Plan (1) Debility: (2) Fall: (3) Closed fracture of left hip: QUALIFIERS: Encounter type: initial encounter Qualified Code(s): S72.002A - Fracture of unspecified part of neck of left femur, initial encounter for closed fracture (4) Parkinson disease: (5) Coronary artery disease: (6) Abdominal aortic aneurysm: (7) Fecal impaction of colon: (8) Benign prostate hyperplasia: (9) Parkinson's disease dementia: PLAN: 76 year old male with below past medical history hospitalized for left hip fracture, underwent left hip hemiarthroplasty 12/08/[address] Villarreal, admitted to TCU with debility, here for rehabilitation, strengthening, prior to discharge home with . * Debility - PT/OT. * Cognition - ST. * Pain - Tylenol 1000mg q6h prn pain (1-3), Motrin 400mg bid prn pain (4-5), Oxycodone 5mg q4h prn pain (6-10). * Bowel - Miralax 17gm daily, Senna/colace 2 tablets bid, Dulcolax 10mg pr daily prn. * Adult immunization - Admister prevnar 20, fluzone, covid19 vaccine as [employer]ierra [employer]. * DVT prophylaxis - Xarelto 10mg daily thru 01/15/2022. * Parkinson Disease - Sinemet 50/200mg tid. * IBS - Bentyl 20mg bid prn. * Nutrition - Ensure Enlive 120ml po tidcm. 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 * Visual hallucinations secondary to Parkinson Disease dementia - Seroquel 25mg qhs, stable chronic tank terminal gauger use, GDR not recommended. * BPH - Tamsulosin 0.4mg qhs.
[2021-12-11 21:15] VITALS: PULSE 90; RESP 18; O2SAT 94
[2021-12-11] MEDS: Tamsulosin HCl 0.4 MG Capsule PO (21:20)
[2021-12-11] MEDS: QUEtiapine 25 MG Tablet PO (21:20)
[2021-12-11] MEDS: CARBIDOPA/LEVODOPA CR 50/200 Tablet PO (21:21)
[2021-12-11 22:00] VITALS: BP 126/87; PULSE 90; RESP 18; TEMP 36.5; O2SAT 94
[2021-12-12] MEDS: Senna/Docusate Sodium 1 Tablet 2 TABLET PO ×2 (04:30→18:01)
[2021-12-12] MEDS: Escitalopram Oxalate 10 MG Tablet PO (04:30)
[2021-12-12] MEDS: Rivaroxaban 10 MG Tablet PO (04:30)
[2021-12-12] MEDS: Acetaminophen 500 MG Tablet 1000 MG PO ×2 (04:31→12:24)
[2021-12-12] MEDS: oxyCODONE 5 MG Tablet PO (04:31)
[2021-12-12 04:44] VITALS: BP 118/77; PULSE 97; RESP 18; TEMP 36.4; O2SAT 98
--- NOTE | 2021-12-12 04:48 | NURSING ---
pt found at the edge of the bed trying to look for wallet. bed alarm on the bed had not gone off yet. pt did stated the his hip was pinching and when asked pt states that he has pain. pt medicated for pain and convinced to lay back down in the bed and was agreeable. danyelle-care given for incontinence of urine. pt reoriented to time and place with little effect. pt kept repeating about his wallet and the little brown cubby on the floor
[2021-12-12 05:42] LABS: Absolute Lymphocyte Count 1.39 X10^3/uL (0.83-4.51); Absolute Neutrophil Count 4.5 X10^3/uL (2.0-7.7); Basophil# 0.05 X10^3/uL; Basophil% 0.7 % (0-1); Eosinophil# 0.24 X10^3/uL; Eosinophils% 3.5 % (0-5); Hematocrit 33.5 % (40-54); Hemoglobin 11.3 g/dL (13.0-16.5); Lymphocyte # 1.39 X10^3/ul (0.83-4.51); Lymphocyte % 20.3 % (19-41); Mean Corp Hgb Conc 33.7 g/dL (32-36); Mean Corpuscular Hgb 31.7 pg (27.0-32.0); Mean Corpuscular Volume 93.8 fL (80-94); Mean Platelet Vol. 10.9 fl (6.2-12.0); Monocyte# 0.57 X10^3/uL; Monocyte% 8.3 % (0-10); NRBC Flagged by Analyzer 0 % (0-5); Neutrophil # 4.46 X10^3/uL (2.7-7.7); Neutrophil % 65.3 % (47-70); Platelet Count 199 K/mm3 (150-450); RBC Distribution Width CV 12.5 % (11.6-14.6); RBC Distribution Width SD 43.2 fl (35.1-43.9); Red Blood Count 3.57 M/mm3 (4.6-6.2); White Blood Count 6.8 K/mm3 (4.4-11.0)
[2021-12-12 05:58] LABS: Anion Gap 4 (5-15); BUN 17 mg/dL (7-18); BUN/Creat Ratio 21.1 RATIO (10-20); Calcium,Total 8.2 mg/dL (8.5-10.1); Chloride 106 mmol/L (98-107); Creatinine, Serum 0.81 mg/dL (0.70-1.30); EST Glomerular Filtration Rate 99 mL/min (>60); Est Glom Filt Rate - Afr Amer 120 mL/min (>60); Estimated Creatinine Clearance 70.27 ml/min; Glucose 101 mg/dL (74-106); Potassium 3.6 mmol/L (3.5-5.1); Sodium Level 139 mmol/L (136-145)
[2021-12-12] MEDS: CARBIDOPA/LEVODOPA CR 50/200 Tablet PO ×2 (06:32→18:01)
[2021-12-12] MEDS: Tuberculin,Purif.prot.deriv. 50 TU/ML Vial 0.1 ML ID (09:56)
--- NOTE | 2021-12-12 10:53 | CASEMGMT ---
Social Work Met with patient for initial assessment. Pt wishes to have involved in updates and DC plans. Pt poor historian and unable to answer questions. Chart review completed to answer questions. Did not complete MOLST form due to cognition. requesting Palliative referral. Referral made via email to [facility]. SW to follow up with . Cynthia Jurado, PILLOWCASE CLEANER FINISH REMOVER
[2021-12-12] MEDS: Carbidopa/Levodopa 25/100 Tablet PO ×2 (12:02→18:01)
[2021-12-12] MEDS: 0.9% Saline Lock 10 ML Syringe IV (12:25)
[2021-12-12 14:52] VITALS: BP 83/50; PULSE 89; RESP 19; TEMP 36.1; O2SAT 93
--- NOTE | 2021-12-12 17:51 | NURSING ---
Received report from NGOZI Fajardo that patient's spouse reporting he is in pain, however, NGOZI Fajardo reports observing pt resting in chair with eyes closed. This nurse entered room after report from NGOZI Fajardo and found pt sitting up in chair eating dinner. This nurse asked pt how he was doing and if he was having any pain, pt denies pain. Spouse reports that she wanted pt to be in laying in bed as this is what he normally does at home d/t having neck pain. Education provided on the importance of having pt OOB to improve strength and that we will work to make sure he is comfortable when sitting up in chair and monitor him for any pain.
[2021-12-12] MEDS: Menthol/Lanolin/Calamine/Znox 113 GM Tube 1 APPLIC TOPICAL (18:01)
[2021-12-12] MEDS: Tamsulosin HCl 0.4 MG Capsule PO (22:27)
[2021-12-12] MEDS: QUEtiapine 25 MG Tablet PO (22:27)
[2021-12-13] MEDS: Polyethylene Glycol 3350 17 GM PACKET PO (05:28)
[2021-12-13] MEDS: Menthol/Lanolin/Calamine/Znox 113 GM Tube 1 APPLIC TOPICAL ×2 (05:28→17:15)
[2021-12-13] MEDS: CARBIDOPA/LEVODOPA CR 50/200 Tablet PO ×2 (05:29→17:14)
[2021-12-13] MEDS: Senna/Docusate Sodium 1 Tablet 2 TABLET PO ×2 (05:29→17:14)
[2021-12-13] MEDS: Carbidopa/Levodopa 25/100 Tablet PO ×3 (05:29→17:13)
[2021-12-13] MEDS: Rivaroxaban 10 MG Tablet PO (05:29)
[2021-12-13] MEDS: Escitalopram Oxalate 10 MG Tablet PO (05:29)
[2021-12-13] MEDS: traMADol 50 MG Tablet PO ×3 (05:29→21:05)
[2021-12-13 05:30] VITALS: BP 98/73; PULSE 84
[2021-12-13] MEDS: 0.9% Saline Lock 10 ML Syringe IV ×2 (08:28→21:05)
[2021-12-13] MEDS: Ibuprofen 400 MG Tablet PO (09:40)
[2021-12-13 16:00] VITALS: BP 124/72; PULSE 81; RESP 14; TEMP 36.7; O2SAT 94
--- NOTE | 2021-12-13 17:19 | NURSING ---
this nurse was told by government gauger that pt c/o SOB. this nurse checked on pt and he stated that he is tired from moving furniture and that his is not having SOB. VS WNL, Lungs dim post bilt bases.
[2021-12-13] MEDS: QUEtiapine 25 MG Tablet PO (21:07)
[2021-12-13] MEDS: Tamsulosin HCl 0.4 MG Capsule PO (21:07)
[2021-12-14] MEDS: Menthol/Lanolin/Calamine/Znox 113 GM Tube 1 APPLIC TOPICAL ×2 (06:16→18:07)
[2021-12-14] MEDS: Polyethylene Glycol 3350 17 GM PACKET PO (06:17)
[2021-12-14] MEDS: CARBIDOPA/LEVODOPA CR 50/200 Tablet PO ×2 (06:17→18:06)
[2021-12-14] MEDS: Acetaminophen 500 MG Tablet 1000 MG PO ×2 (06:17→13:29)
[2021-12-14] MEDS: Carbidopa/Levodopa 25/100 Tablet PO ×3 (06:18→18:05)
[2021-12-14] MEDS: Senna/Docusate Sodium 1 Tablet 2 TABLET PO ×2 (06:18→18:05)
[2021-12-14] MEDS: Rivaroxaban 10 MG Tablet PO (06:18)
[2021-12-14] MEDS: Escitalopram Oxalate 10 MG Tablet PO (06:18)
[2021-12-14] MEDS: traMADol 50 MG Tablet PO ×2 (08:24→18:04)
[2021-12-14 13:24] VITALS: BP 109/61; PULSE 84; RESP 16; TEMP 36.5; O2SAT 97
[2021-12-14 13:30] VITALS: PULSE 84; RESP 16
--- NOTE | 2021-12-14 14:49 | CASEMGMT ---
Social Work requested to speak with this worker. Contacted . requesting to have pt DC 12/25. IDT agreeable. will discuss HHC vs OP therapy with pt. requesting 3-in-1 commode. SW to order all DC needs. Will continue to follow. Cynthia Jurado, MANAGER OFFICE SERVICES FILTRATION OPERATOR
[2021-12-14] MEDS: Tamsulosin HCl 0.4 MG Capsule PO (19:51)
[2021-12-14] MEDS: QUEtiapine 25 MG Tablet PO (19:51)
--- NOTE | 2021-12-14 20:27 | PCM.PN.RX ---
Progress Note - Pharmacy Subjective: [] TCU Admission Objective: Allergies pregabalin [From Lyrica] Adverse Reaction (Severe, Verified 12/06/21 13:15) hallucinations Current Medications Generic Name Dose Route Start Last Admin Trade Name Freq PRN Reason Stop Dose Admin Acetaminophen 1,000 mg 12/11/21 20:24 12/14/21 13:29 Acetaminophen 500 Mg Tablet PO 1,000 mg Q6H PRN PRN Administration Pain Score 1-3 Bisacodyl 10 mg 12/11/21 17:23 Bisacodyl 10 Mg Suppository RC DAILY PRN Constipation Calamine/Phenol 1 applic 12/12/21 18:00 12/14/21 18:07 Menthol/Lanolin/Calamine/Znox 113 Gm Tube TOPICAL 1 applic BID TYRELL Administration Protocol Carbidopa/Levodopa 1 tablet 12/12/21 18:00 12/14/21 18:06 Carbidopa/Levodopa Cr 50/200 Tablet PO 1 tablet BID TYRELL Administration Carbidopa/Levodopa 1 tablet 12/12/21 11:45 12/14/21 18:05 Carbidopa/Levodopa 25/100 Tablet PO 1 tablet TIDAC TYRELL Administration Dicyclomine HCl 20 mg 12/11/21 17:14 Dicyclomine 10 Mg Capsule PO BID PRN PRN abdominal cramping Escitalopram Oxalate 10 mg 12/12/21 06:00 12/14/21 06:18 Escitalopram Oxalate 10 Mg Tablet PO 10 mg DAILY TYRELL Administration Ibuprofen 400 mg 12/11/21 20:24 12/13/21 09:40 Ibuprofen 400 Mg Tablet PO 400 mg BID PRN PRN Administration Pain Score 4-5 Polyethylene Glycol 17 gm 12/12/21 06:00 12/14/21 06:17 Polyethylene Glycol 3350 17 Gm Packet PO 17 gm DAILY TYRELL Administration Quetiapine Fumarate 25 mg 12/11/21 22:00 12/14/21 19:51 Quetiapine 25 Mg Tablet PO 25 mg QHS TYRELL Administration Rivaroxaban 10 mg 12/12/21 06:00 12/14/21 06:18 Rivaroxaban 10 Mg Tablet PO 01/15/22 06:01 10 mg DAILY TYRELL Administration Senna/Docusate Sodium 2 tablet 12/11/21 18:00 12/14/21 18:05 Senna/Docusate Sodium 1 Tablet PO 2 tablet BID TYRELL Administration Sodium Chloride 10 - 40 ml 12/12/21 10:08 12/13/21 21:05 0.9% Saline Lock 10 Ml Syringe IV 10 ml UD PRN Administration SALINE FLUSH Tamsulosin HCl 0.4 mg 12/11/21 22:00 12/14/21 19:51 Tamsulosin Hcl 0.4 Mg Capsule PO 0.4 mg QHS TYRELL Administration Tramadol HCl 50 mg 12/12/21 07:54 12/14/21 18:04 Tramadol 50 Mg Tablet PO 50 mg Q6H PRN PRN Administration Pain Score 6-10 Tuberculin PPD 0.1 ml 12/19/21 10:00 Tuberculin,Purif.Prot.Deriv. 50 Tu/Ml Vial ID 12/19/21 10:01 X1 ONE Problem List (Last Reviewed 12/11/21 @ 20:[address] Christian Burrell MD) Parkinson's disease dementia (Acute) Benign prostate hyperplasia (Acute) Fecal impaction of colon (Acute) Abdominal aortic aneurysm (Acute) Coronary artery disease (Acute) Parkinson disease (Acute) Fall (Acute) Debility (Acute) Closed fracture of left hip (Acute ~12/07/21) Vital Signs Temp Pulse Resp BP Pulse Ox 97.7 F L 84 16 109/61 97 12/14/21 13:24 12/14/21 13:30 12/14/21 13:30 12/14/21 13:24 12/14/21 13:24 Oxygen Delivery Method Room Air Weight: 63.049 kg Body Mass Index (BMI) 21.1 Sodium 139 mmol/L (136-145) 12/12/21 05:17 Potassium 3.6 mmol/L (3.5-5.1) 12/12/21 05:17 Chloride 106 mmol/L (98-107) 12/12/21 05:17 Carbon Dioxide 29.0 mmol/L (21.0-32.0) 12/12/21 05:17 Anion Gap 4 (5-15) L 12/12/21 05:17 BUN 17 mg/dL (7-18) 12/12/21 05:17 Creatinine 0.81 mg/dL (0.70-1.30) 12/12/21 05:17 Est GFR (MDRD) Af Amer 120 mL/min (>60) 12/12/21 05:17 Est GFR (MDRD) Non-Af 99 mL/min (>60) 12/12/21 05:17 BUN/Creatinine Ratio 21.1 RATIO (10-20) H 12/12/21 05:17 Glucose 101 mg/dL (74-106) 12/12/21 05:17 Assessment/Plan: 1) Pain: Acetaminophen 1000mg po q6h prn for pain 1-3, Ibuprofen 400mg po bid for pain 4-5, Tramadol 50mg po q6h for pain 6-10. Please continue to monitor prn usage and for signs/symptoms of increased pain. Pt has a history of fecal impaction. Tramadol (opioids) are contraindicated in pt's with fecal impaction. Please continue to monitor for signs of impaction. --Acetaminophen PRN note: there have been 4 administrations to date --Tramadol PRN note: there have been 5 administrations to date 2) BPH: Tamsulosin 0.4mg po qhs. Please continue to monitor pt for signs/symptoms of BPH 3) DVT Prophylaxis: Xarelto 10mg po daily thru 01/15/22. Please continue to monitor pt for signs/symptoms of bleeding/bruising and/or clot. Pt's Plts are 199. Please continue to monitor. 4) Parkinsons Disease: Sinemet CR 50/200 1 tablet po bid (,), Sinemet 25/100 1 tablet po tid before meals. Please continue to monitor pt for signs/symptoms of Parkinsons. Psychotropic Medications: Escitalopram 10mg po daily for depression. See physicians note in H+P about GDR Quetiapine 25mg po qhs for visual hallucinations. See physicians note in H+P about GDR. Several nursing notes about pt being confused and looking for things. GDR not recommended. Unnecessary Medications: Bowel Regimen: Bisacodyl 10mg suppository daily prn for constipation, Miralax 17gm po daily, Senna/Docusate 2 tablet po bid. Pt has had 1 refusal of Miralax and 1 held dose of Senna/Docusate due to diarrhea. Please continue to monitor pt refusals. Please continue to monitor for signs/symptoms of constipation/diarrhea Date of Note:: 12/14/21
[2021-12-15] MEDS: Escitalopram Oxalate 10 MG Tablet PO (05:25)
[2021-12-15] MEDS: Rivaroxaban 10 MG Tablet PO (05:25)
[2021-12-15] MEDS: Senna/Docusate Sodium 1 Tablet 2 TABLET PO ×2 (05:25→16:19)
[2021-12-15] MEDS: Polyethylene Glycol 3350 17 GM PACKET PO (05:25)
[2021-12-15] MEDS: CARBIDOPA/LEVODOPA CR 50/200 Tablet PO ×2 (05:26→16:19)
[2021-12-15] MEDS: Menthol/Lanolin/Calamine/Znox 113 GM Tube 1 APPLIC TOPICAL ×2 (05:26→16:21)
[2021-12-15] MEDS: Carbidopa/Levodopa 25/100 Tablet PO ×3 (05:26→16:19)
[2021-12-15 10:43] VITALS: PULSE 90; RESP 18; O2SAT 92
[2021-12-15 11:34] VITALS: BP 109/64; PULSE 88; RESP 14; TEMP 36.6; O2SAT 97
--- NOTE | 2021-12-15 13:51 | PCA ---
patient spouse continually comes to visit after lunch and states that patient has had an accident . states that she has a good clay processing labourer and he is always messed up when she comes in. Patient has never had an accident on day shift and rings out when he needs to use the rest room patient spouse is always rude to staff and repeats that she will be taking him home in two weeks where she can take better care of him.
[2021-12-15] MEDS: traMADol 50 MG Tablet PO (16:25)
[2021-12-15] MEDS: Tamsulosin HCl 0.4 MG Capsule PO (20:18)
[2021-12-15] MEDS: QUEtiapine 25 MG Tablet PO (20:18)
[2021-12-15] MEDS: Acetaminophen 500 MG Tablet 1000 MG PO (20:20)
[2021-12-16] MEDS: traMADol 50 MG Tablet PO ×2 (01:15→13:58)
[2021-12-16] MEDS: Senna/Docusate Sodium 1 Tablet 2 TABLET PO ×2 (04:18→17:23)
[2021-12-16] MEDS: Rivaroxaban 10 MG Tablet PO (04:18)
[2021-12-16] MEDS: Polyethylene Glycol 3350 17 GM PACKET PO (04:18)
[2021-12-16] MEDS: Ibuprofen 400 MG Tablet PO (04:18)
[2021-12-16] MEDS: Escitalopram Oxalate 10 MG Tablet PO (04:19)
[2021-12-16] MEDS: CARBIDOPA/LEVODOPA CR 50/200 Tablet PO ×2 (04:19→17:23)
[2021-12-16 04:23] VITALS: BP 118/79; PULSE 79
[2021-12-16] MEDS: Carbidopa/Levodopa 25/100 Tablet PO ×3 (06:00→17:23)
[2021-12-16] MEDS: Menthol/Lanolin/Calamine/Znox 113 GM Tube 1 APPLIC TOPICAL ×2 (06:00→17:23)
[2021-12-16] MEDS: 0.9% Saline Lock 10 ML Syringe IV ×2 (06:01→13:59)
[2021-12-16 13:44] VITALS: BP 116/74; PULSE 80; RESP 16; TEMP 36.5; O2SAT 98
--- NOTE | 2021-12-16 18:20 | NURSING ---
Patient attempting to self transfer and also turn off sitter alarm attached to bed without staff nearby. This nurse witnessed while walking by the room. Patient then transferred to chair with sitter placed behind head of chair for safety precautions.
[2021-12-16] MEDS: Tamsulosin HCl 0.4 MG Capsule PO (20:25)
[2021-12-16] MEDS: QUEtiapine 25 MG Tablet PO (20:25)
[2021-12-16 21:22] VITALS: PULSE 81; RESP 16; O2SAT 94
[2021-12-17] MEDS: Menthol/Lanolin/Calamine/Znox 113 GM Tube 1 APPLIC TOPICAL ×2 (05:04→17:48)
[2021-12-17] MEDS: CARBIDOPA/LEVODOPA CR 50/200 Tablet PO ×2 (05:05→17:48)
[2021-12-17] MEDS: Escitalopram Oxalate 10 MG Tablet PO (05:05)
[2021-12-17] MEDS: Polyethylene Glycol 3350 17 GM PACKET PO (05:05)
[2021-12-17] MEDS: Senna/Docusate Sodium 1 Tablet 2 TABLET PO ×2 (05:05→17:47)
[2021-12-17] MEDS: Rivaroxaban 10 MG Tablet PO (05:05)
[2021-12-17] MEDS: Carbidopa/Levodopa 25/100 Tablet PO ×3 (05:06→17:48)
[2021-12-17] MEDS: traMADol 50 MG Tablet PO ×2 (07:47→15:06)
[2021-12-17] MEDS: 0.9% Saline Lock 10 ML Syringe IV (07:49)
[2021-12-17 09:12] VITALS: PULSE 65; RESP 18; O2SAT 90
[2021-12-17] MEDS: Acetaminophen 500 MG Tablet 1000 MG PO ×2 (10:07→22:07)
[2021-12-17 15:36] VITALS: BP 108/56; PULSE 78; RESP 18; TEMP 36.9; O2SAT 92
[2021-12-17] MEDS: QUEtiapine 25 MG Tablet PO (22:08)
[2021-12-17] MEDS: Tamsulosin HCl 0.4 MG Capsule PO (22:08)
[2021-12-18] MEDS: traMADol 50 MG Tablet PO ×3 (05:00→20:19)
[2021-12-18] MEDS: Escitalopram Oxalate 10 MG Tablet PO (05:01)
[2021-12-18] MEDS: Rivaroxaban 10 MG Tablet PO (05:01)
[2021-12-18] MEDS: Carbidopa/Levodopa 25/100 Tablet PO ×3 (05:01→16:32)
[2021-12-18] MEDS: CARBIDOPA/LEVODOPA CR 50/200 Tablet PO ×2 (05:01→16:32)
[2021-12-18] MEDS: Senna/Docusate Sodium 1 Tablet 2 TABLET PO ×2 (05:01→16:31)
[2021-12-18] MEDS: Polyethylene Glycol 3350 17 GM PACKET PO (05:02)
[2021-12-18] MEDS: Menthol/Lanolin/Calamine/Znox 113 GM Tube 1 APPLIC TOPICAL ×2 (05:02→16:33)
[2021-12-18] MEDS: Ibuprofen 400 MG Tablet PO (09:52)
--- NOTE | 2021-12-18 13:23 | MDS.RN ---
Spoke with spouse, Jennifer. Spouse states she is taking resident home 12/24/21 am, declines plan of care meeting, states i know how to do everything for him.
--- NOTE | 2021-12-18 14:47 | NURSING ---
here at 1200 & reported that pt needed the BR after b2b sales representative toileted him right before meal. Assisted pt to BR with walker and gaitbelt. sat on toilet but unable to void. assisted pt to bed for a nap per request. ultram given for pain 04/15. Slept and then woke up yelling for latesha. assisted pt to BR, incont of urine, attends changed. placed pt in recliner chair, alarm intact, call light in reach. asked this nurse to call his , pt on phone speaking to . then called nurses station and asked if her was ok because he seemed confused. pt has been confused intermittently during stay. states that pt was on medication at home that helped him with his confusion, could not remember name of med but will bring it in tonight.
[2021-12-18 15:02] VITALS: BP 112/62; PULSE 59; RESP 17; TEMP 36.7; O2SAT 99
[2021-12-18] MEDS: Bisacodyl 10 MG Suppository RC (18:25)
[2021-12-18 18:29] VITALS: PULSE 83; RESP 16; O2SAT 95
--- NOTE | 2021-12-18 18:40 | NURSING ---
pt w/out BM since Saturday, rectal suppository given, pt had lg soft stool. incont, attends changed. pt resting in bed, jimmy removed from LT hip, incision left YESENIA. no drng. call light in reach, alarm in place on bed. HOB elevated.
[2021-12-18] MEDS: QUEtiapine 25 MG Tablet PO (20:19)
[2021-12-18] MEDS: Tamsulosin HCl 0.4 MG Capsule PO (20:20)
[2021-12-19] MEDS: traMADol 50 MG Tablet PO ×2 (02:20→16:11)
[2021-12-19] MEDS: Escitalopram Oxalate 10 MG Tablet PO (05:23)
[2021-12-19] MEDS: Senna/Docusate Sodium 1 Tablet 2 TABLET PO ×2 (05:23→17:10)
[2021-12-19] MEDS: CARBIDOPA/LEVODOPA CR 50/200 Tablet PO ×2 (05:23→19:33)
[2021-12-19] MEDS: Polyethylene Glycol 3350 17 GM PACKET PO (05:23)
[2021-12-19] MEDS: Rivaroxaban 10 MG Tablet PO (05:24)
[2021-12-19] MEDS: Carbidopa/Levodopa 25/100 Tablet PO ×3 (05:24→16:12)
[2021-12-19] MEDS: Menthol/Lanolin/Calamine/Znox 113 GM Tube 1 APPLIC TOPICAL ×2 (05:24→17:10)
[2021-12-19 05:29] VITALS: BP 119/78; PULSE 74
[2021-12-19 05:56] LABS: Absolute Lymphocyte Count 2.16 X10^3/uL (0.83-4.51); Absolute Neutrophil Count 4.1 X10^3/uL (2.0-7.7); Basophil# 0.06 X10^3/uL; Basophil% 0.8 % (0-1); Eosinophil# 0.44 X10^3/uL; Eosinophils% 5.8 % (0-5); Hematocrit 36.5 % (40-54); Lymphocyte # 2.16 X10^3/ul (0.83-4.51); Lymphocyte % 28.6 % (19-41); Mean Corp Hgb Conc 32.9 g/dL (32-36); Mean Corpuscular Volume 97.3 fL (80-94); Mean Platelet Vol. 10.2 fl (6.2-12.0); Monocyte# 0.53 X10^3/uL; NRBC Flagged by Analyzer 0 % (0-5); Neutrophil # 4.09 X10^3/uL (2.7-7.7); Neutrophil % 54.1 % (47-70); Platelet Count 328 K/mm3 (150-450); RBC Distribution Width CV 12.6 % (11.6-14.6); RBC Distribution Width SD 45.1 fl (35.1-43.9); Red Blood Count 3.75 M/mm3 (4.6-6.2); White Blood Count 7.6 K/mm3 (4.4-11.0)
[2021-12-19 06:45] LABS: Anion Gap 3 (5-15); BUN 26 mg/dL (7-18); BUN/Creat Ratio 29.3 RATIO (10-20); Calcium,Total 8.5 mg/dL (8.5-10.1); Chloride 106 mmol/L (98-107); Creatinine, Serum 0.89 mg/dL (0.70-1.30); EST Glomerular Filtration Rate 89 mL/min (>60); Est Glom Filt Rate - Afr Amer 108 mL/min (>60); Estimated Creatinine Clearance 63.95 ml/min; Glucose 88 mg/dL (74-106); Potassium 4.1 mmol/L (3.5-5.1); Sodium Level 139 mmol/L (136-145)
--- NOTE | 2021-12-19 09:20 | NURSING ---
Pt off floor for f/u with Dr. Villarreal. Pt's transported him VIA wheelchair to car. Pt's refused help getting pt in car.
--- NOTE | 2021-12-19 10:01 | CASEMGMT ---
Addendum entered by Cynthia Jurado 12/21/21 16:11: contacted this worker requesting to have pt DC'd 12/23 per pt request. IDT agreeable. Updated IDT. BSC still to be delivered 12/22. Plan: DC 12/23 Addendum entered by Cynthia Jurado 12/19/21 14:12: Notified [facility] DC date. Addendum entered by Cynthia Jurado 12/19/21 10:16: returned call by having caller ID. requesting DC 12/24. Pt denied HHC or outpatient therapy. stated pt has a membership to [employer] and can go whenever he wants, she will drive him. Explained structured therapy is a Drs order. expressed understanding and stated pt denied. Faxed script for BSC to [facility] [place]. It will be delivered to patient's room 12/22. to transport. IDT aware. Plan: DC home with 12/24, no therapy needs, BSC KIKA Moses Original Note: Social Work Attempted to contact to finalize DC plans. No voicemail set up. Will continue to attempt. KIKA Moses
[2021-12-19] MEDS: Tuberculin,Purif.prot.deriv. 50 TU/ML Vial 0.1 ML ID (12:00)
--- NOTE | 2021-12-19 12:03 | NURSING ---
Pt Back from f/u appt No new orders at this time.
[2021-12-19 13:48] VITALS: PULSE 80; O2SAT 94
[2021-12-19 15:31] VITALS: BP 107/59; PULSE 82; RESP 18; TEMP 36.6; O2SAT 94
[2021-12-19] MEDS: Ibuprofen 400 MG Tablet PO (19:33)
--- NOTE | 2021-12-19 20:09 | DS.PCM_ITS ---
Providers Date of Admission: 12/11/21 Primary Care Physician: Dr. Casper Do, DO Reason For Visit: L HIP FRACTURE Diagnosis Discharge Diagnosis (1) Debility: Status: Acute Code(s): R53.81 - Other malaise (2) Fall: Status: Acute Code(s): W19.XXXA - Unspecified fall, initial encounter (3) Closed fracture of left hip: Status: Acute Code(s): S72.002A - Fracture of unspecified part of neck of left femur, initial encounter for closed fracture Qualifiers: Encounter type: initial encounter Qualified Code(s): S72.002A - Fracture of unspecified part of neck of left femur, initial encounter for closed fracture (4) Parkinson disease: Status: Acute Code(s): G20 - Parkinson's disease (5) Coronary artery disease: Status: Acute Code(s): I25.10 - Atherosclerotic heart disease of [place] coronary artery without angina pectoris (6) Abdominal aortic aneurysm: Status: Acute Code(s): I71.4 - Abdominal aortic aneurysm, without rupture (7) Fecal impaction of colon: Status: Acute Code(s): K56.41 - Fecal impaction (8) Benign prostate hyperplasia: Status: Acute Code(s): N40.0 - Benign prostatic hyperplasia without lower urinary tract symptoms (9) Parkinson's disease dementia: Status: Acute Code(s): G20 - Parkinson's disease; F02.80 - Dementia in other diseases classified else where without behavioral disturbance Medications at Discharge Home Medications hospital bed #1 ea 02/23/20 walker #1 ea 04/14/20 carbidopa-levodopa [Sinemet] 1 tab PO TIDCM@0900,1300,1800 02/24/21 quetiapine 25 mg tablet 25 mg PO QHS #30 tab 06/05/21 carbidopa-levodopa 1 tab PO BID 12/07/21 escitalopram oxalate [Lexapro] 10 mg PO DAILY 12/07/21 acetaminophen 1,000 mg PO TID PRN #0 tab 12/11/21 dicyclomine 20 mg PO BID PRN #0 cap 12/11/21 escitalopram oxalate 10 mg PO DAILY #0 tab 12/11/21 ibuprofen 400 mg PO BID PRN #0 tab 12/11/21 oxycodone 5 mg PO Q4H PRN PRN 12/11/21 tramadol 50 mg tablet 50 mg PO Q6H PRN #150 tab MDD 5 a day 12/18/21 Xarelto 10 mg PO DAILY 14 Days #14 tab 12/19/21 acetaminophen 1,000 mg PO Q6H PRN PRN #0 tab 12/19/21 carbidopa-levodopa 1 tab PO TIDAC #0 tab 12/19/21 tamsulosin 0.4 mg PO QHS 30 Days #30 cap 12/19/21 tramadol 50 mg PO Q6H PRN PRN 7 Days #28 tab 12/19/21 Hospital Course Operations - (Left hip hemiarthroplasty.) Procedures None Summary of Care Provided Minutes Spent on Discharge: 30 Hospital Course: 76 year old male with below past medical history hospitalized for left hip fracture, underwent left hip hemiarthroplasty 12/08/[address] Villarreal, admitted to TCU with debility, here for rehabilitation, strengthening, p rior to discharge home with . Discharge home with 12/24/2021, No therapy needs, bedside commode. Physical Exam Const alert General Appearance: cooperative HEENT normocephalic Eyes PERRL and EOMs intact bilaterally Neck supple, no JVD and no carotid bruits Resp normal respiratory effort, normal air movement and clear to auscultation bilaterally Cardio regular rate and regular rhythm GI normal to inspection, nondistended, normoactive bowel sounds, non-tender and non-distended Extremity normal capillary refill General Extremity: Negative for edema Skin no rashes or lesions noted General Skin Exam: no breakdown Psych affect normal Appearance: appropriate Weight / BMI Weight Weight: 63.73 kg Body Mass Index (BMI) 21.1 ABG / Lab / Microbiology Data Result Diagrams: 12/19/21 05:29 12/19/21 05:29 Laboratory: Laboratory Results - last 24 hr 12/19/21 05:29: WBC 7.6, RBC 3.75 L, Hgb 12.0 L, Hct 36.5 L, MCV 97.3 H, MCH 32.0, MCHC 32.9, RDW Std Deviation 45.1 H, RDW Coeff of Boni 12.6, Plt Count 328, MPV 10.2, Immature Gran % (Auto) 3.700 H, Neut % (Auto) 54.1, Lymph % (Auto) 28.6, Lyon % (Auto) 7.0, Eos % (Auto) 5.8 H, Baso % (Auto) 0.8, Absolute Neuts (auto) 4.1, Absolute Lymphs (auto) 2.16, Nucleated RBC % 0 12/19/21 05:29: Sodium 139, Potassium 4.1, Chloride 106, Carbon Dioxide 30.0, Anion Gap 3 L, BUN 26 H, Creatinine 0.89, Estim Creat Clear Calc 63.95, Est GFR (MDRD) Af Amer 108, Est GFR (MDRD) Non-Af 89, BUN/Creatinine Ratio 29.3 H, Glucose 88, Calcium 8.5 Microbiology: Microbiology 12/18/21 09:00 Nasal Secretion SARS-CoV-2 Antigen (Rapid) - Final 12/12/21 00:45 Nasal Secretion SARS-CoV-2 Antigen (Rapid) - Final D/C Instructions Discharge Diet: No restrictions Discharge Activity: Return to Normal Activity, May Shower and Use Walker Weight Bearing Status: Weight bearing as tolerated Call your doctor if you observe: Fever of 101 or Higher, Inability to urinate, Inability to have a bowel movement, Shortness of breath, Dizziness, Fainting spells, Swelling in the ankles, Chest pain and Uncontrolled pain Additional Instructions: Discharge home with 12/24/2021, No therapy needs, bedside commode. Please Follow Up With: Gennaro Villarreal DO (Will see ALEXSANDRA Henson) When: As scheduled. Meaningful Use Info Meaningful Use Diagnoses (Choose all that apply): None applicable Discharge Plan Admission Admit Date/Time: 12/11/21 16:46 Primary Reason for Your Visit: Debility. Attending Provider: Christian Burrell Chi Primary Care Provider: Casper Do Instructions Additional Instructions / Restrictions: Discharge home with 12/24/2021, No therapy needs, bedside commode. Discharge Orders/Prescriptions Prescriptions: New acetaminophen 500 mg Tablet 1,000 mg PO Q6H PRN PRN (Reason: Pain Score 1-3) Qty: 0 RF: 0 tramadol 50 mg Tablet 50 mg PO Q6H PRN PRN (Reason: Pain Score 6-10) 7 Days Qty: 28 RF: 0 carbidopa-levodopa 25-100 mg Tablet 1 tab PO TIDAC Qty: 0 RF: 0 Continued escitalopram oxalate [Lexapro] 10 mg Tablet 10 mg PO DAILY RF: 0 carbidopa-levodopa 50-200 mg Tablet Extended Release 1 tab PO BID RF: 0 dicyclomine 10 mg Capsule 20 mg PO BID PRN (Reason: abdominal cramping) Qty: 0 RF: 0 tamsulosin 0.4 mg capsule 0.4 mg PO QHS 30 Days Qty: 30 RF: 3 Xarelto 10 mg tablet 10 mg PO DAILY 14 Days Qty: 14 RF: 0 quetiapine 25 mg tablet 25 mg PO QHS Qty: 30 RF: 1 Discontinued sennosides-docusate sodium [Stool Softener-Stimulant Laxat] 8.6-50 mg tablet 2 tab PO BID RF: 0 No Action (DME) walker Qty: 1 RF: 0 carbidopa-levodopa [Sinemet] 25-100 mg Tablet 1 tab PO TIDCM@0900,1300,1800 RF: 0 acetaminophen 500 mg Tablet 1,000 mg PO TID PRN (Reason: PAIN) Qty: 0 RF: 0 escitalopram oxalate 10 mg Tablet 10 mg PO DAILY Qty: 0 RF: 0 ibuprofen 200 mg Tablet 400 mg PO BID PRN (Reason: Pain) Qty: 0 RF: 0 oxycodone 5 mg tablet 5 mg PO Q4H PRN PRN (Reason: Pain Score 4-10) RF: 0 (DME) hospital bed Qty: 1 RF: 0 tramadol 50 mg tablet 50 mg PO Q6H MDD 5 a day PRN (Reason: pain) Qty: 150 RF: 0 Referrals / Follow Up: Casper Do DO [Primary Care Provider] - Gennaro Villarreal DO [STAFF PHYSICIAN] - Disposition Disposition (needs filled in before D/C Order can be placed): Home, Self Care
[2021-12-19] MEDS: Tamsulosin HCl 0.4 MG Capsule PO (21:12)
[2021-12-19] MEDS: QUEtiapine 25 MG Tablet PO (21:13)
[2021-12-20] MEDS: Escitalopram Oxalate 10 MG Tablet PO (06:33)
[2021-12-20] MEDS: CARBIDOPA/LEVODOPA CR 50/200 Tablet PO ×2 (06:33→21:18)
[2021-12-20] MEDS: Carbidopa/Levodopa 25/100 Tablet PO ×3 (06:33→15:59)
[2021-12-20] MEDS: Senna/Docusate Sodium 1 Tablet 2 TABLET PO ×2 (06:33→17:29)
[2021-12-20] MEDS: Menthol/Lanolin/Calamine/Znox 113 GM Tube 1 APPLIC TOPICAL ×2 (06:33→17:29)
[2021-12-20] MEDS: Rivaroxaban 10 MG Tablet PO (06:33)
[2021-12-20] MEDS: Polyethylene Glycol 3350 17 GM PACKET PO (06:34)
[2021-12-20 13:33] VITALS: BP 106/60; PULSE 83; RESP 16; TEMP 36.7; O2SAT 96
[2021-12-20] MEDS: Tamsulosin HCl 0.4 MG Capsule PO (21:18)
[2021-12-20] MEDS: QUEtiapine 25 MG Tablet PO (21:18)
[2021-12-20 23:00] VITALS: PULSE 61; RESP 16; O2SAT 97
[2021-12-21] MEDS: traMADol 50 MG Tablet PO ×2 (03:47→17:40)
--- NOTE | 2021-12-21 03:50 | NURSING ---
Patient complaining of generalized pain, prn Tramadol administered as directed. Will continue to monitor.
[2021-12-21] MEDS: Acetaminophen 500 MG Tablet 1000 MG PO (04:40)
[2021-12-21] MEDS: Escitalopram Oxalate 10 MG Tablet PO (04:41)
[2021-12-21] MEDS: Polyethylene Glycol 3350 17 GM PACKET PO (04:41)
[2021-12-21] MEDS: Rivaroxaban 10 MG Tablet PO (04:41)
[2021-12-21] MEDS: CARBIDOPA/LEVODOPA CR 50/200 Tablet PO ×2 (04:42→17:37)
[2021-12-21] MEDS: Senna/Docusate Sodium 1 Tablet 2 TABLET PO ×2 (04:42→17:37)
[2021-12-21] MEDS: Carbidopa/Levodopa 25/100 Tablet PO ×3 (06:51→17:37)
[2021-12-21] MEDS: Menthol/Lanolin/Calamine/Znox 113 GM Tube 1 APPLIC TOPICAL ×2 (06:53→17:37)
[2021-12-21 10:00] VITALS: PULSE 75; RESP 18; O2SAT 90
--- NOTE | 2021-12-21 10:45 | CON.PCM.PA_ITS ---
Assessment & Plan Assessment/Plan (1) Debility: (2) Parkinson disease: (3) Parkinson's disease dementia: QUALIFIERS: Dementia behavioral disturbance: with behavioral disturbance Qualified Code(s): G20 - Parkinson's disease; F02.81 - Dementia in other diseases classified elsewhere with behavioral disturbance (4) Fecal impaction of colon: (5) Chronic obstructive pulmonary disease: QUALIFIERS: COPD type: unspecified COPD Qualified Code(s): J44.9 - Chronic obstructive pulmonary disease, unspecified (6) Anxiety: PLAN: 76-year-old male with Parkinson's dementia, status post hip surgery for fall with fracture, currently in TCU for rehab and scheduled for discharge home with in couple of days. 1. Debility and weakness: They have declined therapy at home. Would likely benefit from therapy. They are recommending 24/7 supervision and contact-guard with all ambulation. Concerned that patient is going to have another fall and end up back in the ED. 2. Parkinson's/dementia/constipation/COPD/anxiety: Complicates overall care, management, recovery, and prognosis. Patient would benefit from palliative services for supportive care, management of his debility and weakness, constipation, and coordination of care. Thank you for the opportunity to participate in this patient's care, please do not hesitate to contact [facility] with any further questions or concerns, direct line is [phone]. We will follow up after discharge and will discuss palliative services further at that time. Contact information left with the patient. Also spoke with on phone, explained services. She did not seem interested but we will reach out to her in a couple of weeks to see if she has any further questions. Greater than 50% of F2F visit dedicated to education and counseling of palliative care services, medications, comorbid conditions and potential assistance with management, and plan of care moving forward. Start time: 1045 End time: 1111 HPI Consult Data Date of Consult: 12/21/21 HPI Narrative HPI Narrative: NIKOLAS HANSON, is a 76 M who presented to [facility] status post fall with a left hip fracture. He underwent surgery 12/07/2021 and e ventually stabilized and was discharged to TCU for further rehab. Past medical history of Parkinson's disease with dementia.. Plan to be discharged discharge home with 12/24/2021. He will not continue therapy. DME needed is only bedside commode. He lives at home with his and has a son close by. They have declined outpatient therapy. Patient does have a membership to [employer] and drives him there. Patient is incontinent. He was having issues with constipation while in the hospital. Given Ultram for pain. Nursing reports his pain level has been controlled. Patient is able to get up out of the chair independently and ambulate. He takes Seroquel at bedtime and is on anticoagulation for unknown reason. He also takes Sinemet for his Parkinson's. As needed medication includes Tylenol 1 g every 6 hours as needed dicyclomine for diarrhea. Also ibuprofen 40 mg twice daily as needed and tramadol as at 50 mg every 6 hours as needed. Patient denies any current pain. No nausea or vomiting. He does endorse issues with constipation's with his Parkinson's. Does not take any as needed meds at home that he knows of. He is confused. Staff reports urinating okay. Nursing reports when is here, patient takes more pain medication. [facility] Medical History Abdominal aortic aneurysm Atherosclerotic heart disease of [place] coronary artery without angina pectoris Former smoker Parkinson's disease Raynauds disease Home Medications hospital bed #1 ea 02/23/20 [History Last Taken Unknown] walker #1 ea 04/14/20 [Rx Last Taken Unknown] carbidopa-levodopa [Sinemet] 1 tab PO TIDCM@0900,1300,1800 02/24/21 [History Last Taken 12/06/21] quetiapine 25 mg tablet 25 mg PO QHS #30 tab 06/05/21 [Rx Last Taken 12/05/21] carbidopa-levodopa 1 tab PO BID 12/07/21 [History Last Taken Unknown] escitalopram oxalate [Lexapro] 10 mg PO DAILY 12/07/21 [History Last Taken Unknown] acetaminophen 1,000 mg PO TID PRN #0 tab 12/11/21 [Rx Last Taken Unknown] dicyclomine 20 mg PO BID PRN #0 cap 12/11/21 [Rx Last Taken Unknown] escitalopram oxalate 10 mg PO DAILY #0 tab 12/11/21 [Rx Last Taken Unknown] ibuprofen 400 mg PO BID PRN #0 tab 12/11/21 [Rx Last Taken 12/05/21] oxycodone 5 mg PO Q4H PRN PRN 12/11/21 [History Last Taken Unknown] tramadol 50 mg tablet 50 mg PO Q6H PRN #150 tab MDD 5 a day 12/18/21 [Rx Last Taken Unknown] Xarelto 10 mg PO DAILY 14 Days #14 tab 12/19/21 [Rx Last Taken Unknown] acetaminophen 1,000 mg PO Q6H PRN PRN #0 tab 12/19/21 [Rx Last Taken Unknown] carbidopa-levodopa 1 tab PO TIDAC #0 tab 12/19/21 [Rx Last Taken Unknown] tamsulosin 0.4 mg PO QHS 30 Days #30 cap 12/19/21 [Rx Last Taken 12/05/21] tramadol 50 mg PO Q6H PRN PRN 7 Days #28 tab 12/19/21 [Rx Last Taken Unknown] Allergy/AdvReac Type Severity Reaction Status Date / Time pregabalin [From Lyrica] AdvReac Severe hallucinati Verified 12/06/21 13:15 ons Family History Brother Alcoholism Father Heart disease Myocardial infarction Uncle Heart disease Myocardial infarction Grandfather Heart disease Myocardial infarction Mother Heart disease Surgical History History of cataract surgery History of colonoscopy History of left hip hemiarthroplasty History of tonsillectomy Social History household members: spouse Smoking Status: Former smoker how long ago did patient quit smokin alcohol intake: never substance use type: does not use what type of physical activity do you participate in: walking frequency: daily ROS ROS Narrative Review of systems otherwise negative from a constitutional, HEENT, respiratory, cardiovascular, GI, genitourinary, musculoskeletal, skin, neurologic, psychiatric and hematologic system unless stated above. Physical Exam Const alert and no apparent distress Constitutional Narrative: Somewhat agitated but cooperative. Confused Nutritional Appearance: cachectic HEENT normocephalic and head/scalp atraumatic Neck supple General: trachea midline Resp normal respiratory effort Effort and Inspection: able to speak in complete sentences and symmetric chest movement Auscultation: rhonchi right lower and diminished lung sounds Cardio regular rate, regular rhythm, S1 normal heart sound and S2 normal heart sound GI normal to inspection, nondistended, normoactive bowel sounds Extremity no clubbing, cyanosis or edema Skin Skin Narrative: Hip dressing not observed. Otherwise, skin pale Psych cooperative Appearance: grossly normal Attitude: agitated Activity / Motor Behavior: appropriate eye contact Speech: normal speech Memory / Cognition: cognition impaired Insight: limited
[2021-12-21 14:07] VITALS: BP 107/62; PULSE 75; RESP 17; TEMP 36.7; O2SAT 95
[2021-12-21] MEDS: Tamsulosin HCl 0.4 MG Capsule PO (20:56)
[2021-12-21] MEDS: QUEtiapine 25 MG Tablet PO (20:57)
[2021-12-22] MEDS: traMADol 50 MG Tablet PO (01:29)
[2021-12-22] MEDS: Ibuprofen 400 MG Tablet PO (06:47)
[2021-12-22] MEDS: Carbidopa/Levodopa 25/100 Tablet PO ×3 (06:48→15:59)
[2021-12-22] MEDS: Senna/Docusate Sodium 1 Tablet 2 TABLET PO ×2 (06:48→19:24)
[2021-12-22] MEDS: Escitalopram Oxalate 10 MG Tablet PO (06:48)
[2021-12-22] MEDS: Rivaroxaban 10 MG Tablet PO (06:49)
[2021-12-22] MEDS: Polyethylene Glycol 3350 17 GM PACKET PO (06:49)
[2021-12-22] MEDS: CARBIDOPA/LEVODOPA CR 50/200 Tablet PO ×2 (06:49→19:25)
[2021-12-22] MEDS: Menthol/Lanolin/Calamine/Znox 113 GM Tube 1 APPLIC TOPICAL ×2 (06:51→19:25)
--- NOTE | 2021-12-22 11:54 | MDS.RN ---
Information for the mds was obtained from review of the clinical record, interview of resident, staff, and direct observation of resident's care.
--- NOTE | 2021-12-22 12:07 | CASEMGMT ---
Social Work BIMS and PHQ-9 completed for MDS assessment. Cynthia Jurado, MEDICAL PHYSICS PROFESSOR METALLURGICAL LAB TECHNICIAN
[2021-12-22 16:00] VITALS: BP 109/66; PULSE 88; RESP 14; TEMP 37.1; O2SAT 96
[2021-12-22] MEDS: Tamsulosin HCl 0.4 MG Capsule PO (20:45)
[2021-12-22] MEDS: QUEtiapine 25 MG Tablet PO (20:46)
[2021-12-23] MEDS: traMADol 50 MG Tablet PO (04:48)
[2021-12-23] MEDS: Polyethylene Glycol 3350 17 GM PACKET PO (04:49)
[2021-12-23] MEDS: Carbidopa/Levodopa 25/100 Tablet PO (04:49)
[2021-12-23] MEDS: Rivaroxaban 10 MG Tablet PO (04:49)
[2021-12-23] MEDS: Senna/Docusate Sodium 1 Tablet 2 TABLET PO (04:49)
[2021-12-23] MEDS: Escitalopram Oxalate 10 MG Tablet PO (04:49)
[2021-12-23] MEDS: Menthol/Lanolin/Calamine/Znox 113 GM Tube 1 APPLIC TOPICAL (04:50)
[2021-12-23] MEDS: CARBIDOPA/LEVODOPA CR 50/200 Tablet PO (04:50)
[2021-12-23 04:53] VITALS: BP 103/66; PULSE 83
[2021-12-23 09:52] VITALS: BP 104/63; PULSE 73; RESP 16; TEMP 36.6; O2SAT 95
--- NOTE | 2021-12-23 09:55 | NURSING ---
wanted meds transferred from [facility] retail pharmacy to [facility]. Retail pharmacy updated.
[2021-12-23 10:26] VITALS: RESP 16; O2SAT 94
== END 2021-12-23 10:30 | disposition home or self-care (01) | DRG 560 ==
PROVIDERS: Admitting Provider Family Medicine Geriatric Medicine; PCP Family Medicine; Visit Provider Family Medicine Geriatric Medicine
DX: S72.002D Fracture of unspecified part of neck of left femur, subsequent encounter for closed fracture with routine healing (principal); F02.81 Dementia in other diseases classified elsewhere, unspecified severity, with behavioral disturbance; G20 Parkinson's disease; G31.83 Neurocognitive disorder with Lewy bodies; I71.4 Abdominal aortic aneurysm, without rupture; J44.9 Chronic obstructive pulmonary disease, unspecified; K56.41 Fecal impaction; N40.0 Benign prostatic hyperplasia without lower urinary tract symptoms; W19.XXXD Unspecified fall, subsequent encounter; I25.10 Atherosclerotic heart disease of native coronary artery without angina pectoris; K58.9 Irritable bowel syndrome, unspecified; F41.9 Anxiety disorder, unspecified; I73.00 Raynaud's syndrome without gangrene; Z23 Encounter for immunization; F32.A Depression, unspecified; Z79.899 Other long term (current) drug therapy; Z96.642 Presence of left artificial hip joint; Z79.01 Long term (current) use of anticoagulants; Z87.891 Personal history of nicotine dependence
CPT/HCPCS: 36415; 80048; 85025; 87426; 92507; 92523; 97110; 97116; 97162; 97166; 97530; 97535; 97802; G0009; 90670; A4216

== ENCOUNTER → 2022-02-13 | Outpatient (CLI) | payer MEDICARE, OTHER, SELFPAY ==
[2022-02-13 15:40] LABS: PSA,Total- Diagnostic 0.61 ng/mL (0.0-4.0)
== END | disposition home or self-care (01) ==
LOC: BIMLAB 14:07
PROVIDERS: PCP Family Medicine; Referring Provider Family Medicine; Visit Provider Family Medicine
DX: R32 Unspecified urinary incontinence (principal)
CPT/HCPCS: 36415; 84153

== ENCOUNTER → 2022-03-12 | Outpatient (CLI) | payer MEDICARE, OTHER, SELFPAY ==
[2022-03-12 13:05] LABS: Absolute Lymphocyte Count 1.92 X10^3/uL (0.83-4.51); Basophil# 0.07 X10^3/uL; Eosinophil# 0.37 X10^3/uL; Eosinophils% 5.3 % (0-5); Hematocrit 44.2 % (40-54); Hemoglobin 14.4 g/dL (13.0-16.5); Lymphocyte # 1.92 X10^3/ul (0.83-4.51); Lymphocyte % 27.6 % (19-41); Mean Corp Hgb Conc 32.6 g/dL (32-36); Mean Corpuscular Hgb 31.2 pg (27.0-32.0); Mean Corpuscular Volume 95.9 fL (80-94); Monocyte# 0.57 X10^3/uL; Monocyte% 8.2 % (0-10); NRBC Flagged by Analyzer 0 % (0-5); Neutrophil # 3.96 X10^3/uL (2.7-7.7); Neutrophil % 56.9 % (47-70); Platelet Count 209 K/mm3 (150-450); RBC Distribution Width CV 12.4 % (11.6-14.6); RBC Distribution Width SD 44.3 fl (35.1-43.9); Red Blood Count 4.61 M/mm3 (4.6-6.2)
[2022-03-12 13:12] LABS: Vitamin B12 372 pg/mL (211-911)
[2022-03-12 13:16] LABS: Erythrocyte Sedimentation Rate 5 mm/hr (0-20)
[2022-03-12 13:22] LABS: ALB/GLOB Ratio 0.8 RATIO (0.9-2.4); AST(SGOT) 16 U/L (15-37); Alanine Aminotransfer ALT/SGPT 9 U/L (16-61); Albumin, Serum 3.3 g/dL (3.2-5.0); Alkaline Phosphatase 94 U/L (45-117); Anion Gap 5 (5-15); BUN 20 mg/dL (7-18); BUN/Creat Ratio 16.7 RATIO (10-20); CRP < 2.90 mg/L (0.0-3.0); Calcium,Total 8.5 mg/dL (8.5-10.1); Chloride 107 mmol/L (98-107); EST Glomerular Filtration Rate 63 mL/min (>60); Est Glom Filt Rate - Afr Amer 76 mL/min (>60); Globulin 4.3 g/dL (2.2-4.2); Glucose 82 mg/dL (74-106); Potassium 3.9 mmol/L (3.5-5.1); Protein, Total 7.6 g/dL (6.4-8.2); Sodium Level 140 mmol/L (136-145); Thyroid Stim Hormone (TSH) 2.38 uIU/mL (0.358-3.74)
[2022-03-12 17:25] LABS: Red Blood Cells-Urine 0 SEEN /hpf (0-5)
[2022-03-12 18:02] LABS: Color, Urine Yellow (Yellow); Glucose, Dipstick Normal (Normal); Ketone-Dipstick 15 mg/dl (Negative); Leukocyte Esterase-Dipstick 25 /ul (Negative); Nitrite-Dipstick Negative (Negative); Occult Blood-Urine 10 /ul (Negative); Protein-Dipstick 30 mg/dl (Negative); Specific Gravity, Urine 1.025 (1.002-1.030); Urine Bilirubin Dipstick 1 mg/dL (Negative); Urine Clarity Clear (Clear); Urine Urobilinogen 4 mg/dl (Normal)
[2022-03-12 19:04] LABS: White Blood Cells 0-5 SEEN /hpf (0-5)
[2022-03-12 19:05] LABS: Bacteria 1+ /hpf (None Seen); Mucous, Urine 4+ /hpf (<or=2+); Squamous Epithelial Cells - UA 0-5 SEEN /hpf (0-5)
== END | disposition home or self-care (01) ==
PROVIDERS: PCP Family Medicine; Referring Provider Nurse Practitioner Family; Visit Provider Nurse Practitioner Family
DX: G20 Parkinson's disease (principal); R44.1 Visual hallucinations
CPT/HCPCS: 36415; 80053; 81001; 82607; 84443; 85025; 85652; 86140; 87086; 87088

== ENCOUNTER → 2022-04-16 | Outpatient (CLI) | payer MEDICARE, OTHER, SELFPAY ==
--- NOTE | 2022-04-16 10:46 | MRI_ITS ---
STUDY: MRI BRAIN WITHOUT CONTRAST REASON FOR EXAM: Male, 76 years old. MEMORY CHANGES, PARKINSON''S TECHNIQUE: Standardized multiplanar fat and water weighted pulse sequences were obtained. COMPARISON: 08/10/2015 FINDINGS: There is moderate cerebral atrophy with widening of the extra-axial spaces and ventricular dilatation. There are multiple white matter hyperintensities, distributed throughout the deep white matter tracts of the cerebral hemispheres, consistent with moderate chronic white matter ischemic changes. There is no evidence for recent intracranial ischemia or other cause of cytotoxic edema on diffusion weighted imaging (DWI). Normal T2* images of the brain without demonstrated susceptibility artifact. There is no demonstrated hemosiderin stain. Mid brain iron stores are preserved. Normal bilateral basal ganglia. Normal thalami. There is no extra-axial fluid accumulation. Normal flow voids within the major intracranial circulation suggesting patency by spin echo criteria. Normal sella turcica, pituitary gland, infundibular stalk, optic chiasm and hypothalamus. Normal tectal plate and pineal gland. Normal midbrain, richie and medulla. Normal cerebellum. Normal basal cisterns. Normal bilateral temporal bones. Normal bilateral internal auditory canals. There are bilateral ocular lens implants with otherwise normal intraorbital contents. Normal visualized paranasal sinuses. Normal calvarium and skull base. Normal visualized soft tissue structures. Normal visualized upper cervical spine. MRI/Brain without Contrast IMPRESSION: Involutional changes of the brain, as described above. No acute infarct. Electronically Signed: Zuhair Bonner MD at 16:43 EDT ,
== END | disposition home or self-care (01) ==
LOC: MRI 10:38
PROVIDERS: PCP Family Medicine; Referring Provider Nurse Practitioner Family; Visit Provider Nurse Practitioner Family
DX: R41.3 Other amnesia (principal); G20 Parkinson's disease
CPT/HCPCS: 70551

== ENCOUNTER 2022-07-25 15:24 | Inpatient (IN) | payer MEDICARE, OTHER, SELFPAY ==
[2022-07-25] VITALS (19 sets, daily range): BP systolic 104–150; BP diastolic 66–110; PULSE 80–118; RESP 12–40; TEMP 36.6–38.6; O2SAT 90–100; BMI 21.6; BMI 19.2
--- NOTE | 2022-07-25 15:43 | EKG12_ITS ---
Test Reason : SOB Blood Pressure : / mmHG Vent. Rate : 108 BPM Atrial Rate : 108 BPM P-R Int : 162 ms QRS Dur : 078 ms QT Int : 322 ms P-R-T Axes : 057 -56 070 degrees QTc Int : 431 ms Sinus tachycardia Left axis deviation Abnormal ECG Confirmed by JUAQUIN SKINNER, BRENDEN ([id number]), story editor HENRY UP ([id number]) on 07/30/2022 9:35:28 AM Referred By: Confirmed By:BRENDEN REZA MD
--- NOTE | 2022-07-25 15:45 | EDS_ITS ---
HPI History of Present Illness Chief Complaint: Shortness of Breath Informant: patient and family Onset/Context/Timing Onset: Weeks (2-week) Context: Gradual Onset Current Severity: Moderate Maximum Severity: Moderate Narrative Narrative: Patient presents with 2-week history of shortness of breath with increased moist cough. He states he is not really bringing up any sputum. He denies chest pain. He denies fever. He has a history of COPD but family states that he does not have inhalers or nebulizer at home. [facility] Medical History Abdominal aortic aneurysm Atherosclerotic heart disease of [place] coronary artery without angina pectoris COPD (chronic obstructive pulmonary disease) Former smoker Parkinson's disease Raynauds disease Home Medications hospital bed #1 ea 02/23/20 [History Last Taken Unknown] walker #1 ea 04/14/20 [Rx Last Taken Unknown] carbidopa 25 mg-levodopa 100 mg tablet (Sinemet) 1 tab PO TIDCM@0900,1300,1800 parkinsons 02/24/21 [History Last Taken 12/06/21] carbidopa ER 50 mg-levodopa 200 mg tablet,extended release 1 tab PO BID parkinsons 12/07/21 [History Last Taken Unknown] acetaminophen 500 mg tablet 1,000 mg PO TID PRN PAIN #0 tabs 12/11/21 [Rx Last Taken Unknown] acetaminophen 500 mg tablet 1,000 mg PO Q6H PRN PRN Pain Score 1-3 #0 tabs 12/19/21 [Rx Last Taken Unknown] escitalopram oxalate 10 mg tablet 10 mg PO DAILY #90 tabs 02/13/22 [Rx Last Taken Unknown] quetiapine 25 mg tablet 25 mg PO QHS Sleep #30 tabs 02/13/22 [Rx Last Taken Unknown] tamsulosin 0.4 mg capsule 0.4 mg PO QHS BPH 30 days #30 caps 07/17/22 [Rx Last Taken Unknown] tramadol 50 mg tablet 50 mg PO Q6H PRN pain #150 tabs 07/24/22 [Rx Last Taken Unknown] Allergy/AdvReac Type Severity Reaction Status Date / Time pregabalin [From Lyrica] AdvReac Severe hallucinati Verified 02/13/22 13:38 ons Family History Brother Alcoholism Father Heart disease Myocardial infarction Uncle Heart disease Myocardial infarction Grandfather Heart disease Myocardial infarction Mother Heart disease Surgical History History of cataract surgery History of colonoscopy History of left hip hemiarthroplasty History of tonsillectomy Social History household members: spouse Smoking Status: Former smoker how long ago did patient quit smokin alcohol intake: never substance use type: does not use what type of physical activity do you participate in: walking frequency: daily ROS ROS ED Constitutional Constitutional ED: Denies chills or fever(s) Eyes Eyes: Denies change in vision or discharge from eye(s) ENT ENT ED: Denies discharge from eye(s), rhinorrhea or sore throat Cardiovascular Cardiovascular: Denies chest pain or palpitations Respiratory/Chest Respiratory/Chest: Reports cough and dyspnea; Denies sputum Gastrointestinal Gastrointestinal: Denies abdominal pain, diarrhea, nausea or vomiting Genitourinary Genitourinary ED: Denies dysuria Musculoskeletal Musculoskeletal: Reports myalgias; Denies back pain or extremity pain Integumentary Denies Abrasions or rash Neurologic Neurologic: Reports weakness; Denies headache(s) Allergic/Immunologic Allergic/Immunologic ED: Denies lip swelling or urticaria EXAM Physical Exam Const Vital Signs: 07/25/22 15:25 07/25/22 15:38 07/25/22 15:39 Temperature 99.8 F H Temperature Source Temporal Pulse Rate 110 H 102 H Respiratory Rate 26 H 36 H Respiratory Effort Short of Breath Labored Respiratory Pattern Tachypnea Blood Pressure 129/71 H 150/98 H Blood Pressure Mean 90 115 Pulse Ox 100 96 Oxygen Delivery Method Room Air Room Air Oxygen Flow Rate (L/min) Fraction of Inspired Oxygen (FIO2) 07/25/22 15:42 07/25/22 16:04 07/25/22 16:16 Temperature 101.4 F H Temperature Source Oral Pulse Rate 110 H 117 H Respiratory Rate 40 H 28 H Respiratory Effort Respiratory Pattern Tachypnea Blood Pressure 143/68 H Blood Pressure Mean 93 Pulse Ox 94 Oxygen Delivery Method Room Air Oxygen Flow Rate (L/min) Fraction of Inspired Oxygen (FIO2) 07/25/22 16:31 07/25/22 17:09 07/25/22 17:10 Temperature 99.2 F H 99.2 F H Temperature Source Oral Oral Pulse Rate 118 H 111 H 111 H Respiratory Rate 32 H 18 18 Respiratory Effort Respiratory Pattern Tachypnea Blood Pressure 138/110 H 138/110 H Blood Pressure Mean 119 119 Pulse Ox 93 90 92 Oxygen Delivery Method Room Air Nasal Cannula Oxygen Flow Rate (L/min) 2 Fraction of Inspired Oxygen (FIO2) 21 21 Positive cachectic General Appearance ED: cachectic Nutritional Appearance: cachectic HEENT Reports normocephalic and head/scalp atraumatic Eyes PERRL and EOMs intact bilaterally Neck supple Chest Wall inspection of chest normal and palpation of chest normal Resp Resp Narrative: Tachypneic with expiratory wheezes. Cardio regular rhythm Rate: tachycardic GI non-tender Auscultation: hypoactive bowel sounds Palpation: soft Extremity normal to inspection Neuro oriented x3 Sensorium / Orientation: alert Psych mental status grossly normal Skin no rashes or lesions noted MDM MDM MDM Narrative Medical decision making narrative: Patient placed on gambling monitor. EKG, chest x-ray, lab work obtained. Patient given Tylenol for fever. Lab Data Attestation: I reviewed the patient's lab results. Labs: Laboratory Results - last 24 hr 07/25/22 07/25/22 07/25/22 15:40 15:40 15:40 WBC 15.7 H RBC 4.43 L Hgb 13.7 Hct 42.4 MCV 95.7 H MCH 30.9 MCHC 32.3 RDW Std Deviation 47.9 H RDW Coeff of [place] 13.5 Plt Count 197 MPV 11.3 Immature Gran % (Auto) 1.100 H Neut % (Auto) 85.5 H Lymph % (Auto) 7.3 L [place] % (Auto) 5.5 Eos % (Auto) 0.3 Baso % (Auto) 0.3 Absolute Neuts (auto) 13.4 H Absolute Lymphs (auto) 1.15 Nucleated RBC % 0 PT 15.0 H INR 1.2 APTT 32.4 Sodium 140 Potassium 3.9 Chloride 106 Carbon Dioxide 28.0 Anion Gap 6 BUN 19 H Creatinine 1.01 Estim Creat Clear Calc 56.69 Est GFR (MDRD) Af Amer 92 Est GFR (MDRD) Non-Af 76 BUN/Creatinine Ratio 18.8 Glucose 110 H Lactic Acid Calcium 8.9 Total Bilirubin 1.40 H AST 14 L ALT < 6 L Alkaline Phosphatase 98 Troponin I High Sens 9 Total Protein 8.5 H Albumin 3.6 Globulin 4.9 H Albumin/Globulin Ratio 0.7 L Urine Color Urine Clarity Urine pH Ur Specific [place] Urine Protein Urine Glucose (UA) Urine Ketones Urine Occult Blood Urine Nitrite Urine Bilirubin Urine Urobilinogen Ur Leukocyte Esterase Urine RBC Urine WBC Ur Squamous Epith Cells Urine Bacteria Urine Mucus 07/25/22 07/25/22 15:40 16:15 WBC RBC Hgb Hct MCV MCH MCHC RDW Std Deviation RDW Coeff of Bon[place] Plt Count MPV Immature Gran % (Auto) Neut % (Auto) Lymph % (Auto) [place] % (Auto) Eos % (Auto) Baso % (Auto) Absolute Neuts (auto) Absolute Lymphs (auto) Nucleated RBC % PT INR APTT Sodium Potassium Chloride Carbon Dioxide Anion Gap BUN Creatinine Estim Creat Clear Calc Est GFR (MDRD) Af Amer Est GFR (MDRD) Non-Af BUN/Creatinine Ratio Glucose Lactic Acid 1.5 Calcium Total Bilirubin AST ALT Alkaline Phosphatase Troponin I High Sens Total Protein Albumin Globulin Albumin/Globulin Ratio Urine Color Yellow Urine Clarity Sl. Cloudy Urine pH 7.0 Ur Specific [place] 1.010 Urine Protein 30 H Urine Glucose (UA) Normal Urine Ketones 5 H Urine Occult Blood 50 H Urine Nitrite Negative Urine Bilirubin Negative Urine Urobilinogen 8 H Ur Leukocyte Esterase 500 H Urine RBC 10-25 SEEN Urine WBC 50-100 SEEN Ur Squamous Epith Cells 0-5 SEEN Urine Bacteria 3+ Urine Mucus 0 SEEN Radiography Chest X-Ray - ED: 1 View, Read by ED Physician and - (Mild hyperinflation. No focal infiltrate.) Diagnostic Testing: Clinical Impression(s) from Imaging Studies Chest X-Ray 07/25/22 15:50 IMPRESSION: ASHD. No acute cardiopulmonary pathology. Electronically Signed: Ralf Pearce MD at 16:53 EDT , EKG Initial EKG: Attestation: I personally reviewed and interpreted this EKG as follows: Interpretation: Sinus Tachycardia (Sinus tach at 108. No acute ischemia.) Treatment and Re-Evaluation Narrative: Patient was given DuoNeb treatment and 2 albuterol treatments. Following this he remained tachypneic. He has not been hypoxic. He was placed on BiPAP to help with work of breathing. On repeat evaluation he states he does feel this is helping him. He is only on 21% FiO2. CBC reveals an elevated white count at 15.7. 85% neutrophils noted. Chemistry studies unremarkable. LFTs reveal total bilirubin of 1.4. Troponin is normal at 9. Lactic acid is 1.5. Swab for COVID and influenza is negative. Patient has upper respiratory symptoms with a history of COPD and elevated white count. Although I do not appreciate focal infiltrate on my interpretation of the x-ray, he will be covered with Rocephin and Zithromax. I will speak with hospitalist regarding admission. Just before I spoke with the hospitalist, patient states he was having more trouble breathing and felt like he had too much pressure from the CPAP. This was removed. His O2 sat is 90 to 91% on room air. He has been on a couple liters for supportive care. Test results are discussed with patient as well as family at bedside. Prior to the patient going to the floor urinalysis did return with sign of infection. He has 3+ bacteria with 50-100 white cells. He is already on Rocep hin to cover his respiratory illness and urine culture has already been sent. Discharge Plan Dx/Rx/DC Orders Clinical Impression: COPD exacerbation, Respiratory failure, Leukocytosis Disposition Disposition: Acute Care [facility]
--- NOTE | 2022-07-25 15:50 | RAD_ITS ---
STUDY: X-RAY CHEST REASON FOR EXAM: Male, 77 years old. sob TECHNIQUE: AP portable COMPARISON: 12/06/2021 FINDINGS: The lungs are clear and expanded. There is no demonstrated pleural abnormality. Normal size heart. Normal mediastinum and deyanira. Normal visualized pulmonary arteries. Tortuous mildly calcified aortic arch and descending thoracic aorta. Dorsal spine demonstrates degenerative changes. Normal visualized ribs, clavicles, and shoulders. There is no demonstrated abnormality of the visualized soft tissue structures of the upper abdomen. RAD/Chest 1 View (Portable) IMPRESSION: ASHD. No acute cardiopulmonary pathology. Electronically Signed: Ralf Pearce MD at 16:53 EDT ,
[2022-07-25] MEDS: MethylPREDNISolone 125 MG/2 ML Vial IV (15:52)
[2022-07-25] MEDS: Acetaminophen 500 MG Tablet 1000 MG PO (15:52)
[2022-07-25] MEDS: Ipratropium/Albuterol Sulfate 3 ML AMPUL.NEB INHALATION ×2 (15:55→19:18)
[2022-07-25] MEDS: Albuterol 2.5 MG/3 ML VIAL.NEB. INHALATION ×2 (16:03)
[2022-07-25 16:04] LABS: Absolute Lymphocyte Count 1.15 X10^3/uL (0.83-4.51); Absolute Neutrophil Count 13.4 X10^3/uL (2.0-7.7); Basophil# 0.05 X10^3/uL; Basophil% 0.3 % (0-1); Eosinophil# 0.05 X10^3/uL; Eosinophils% 0.3 % (0-5); Hematocrit 42.4 % (40-54); Hemoglobin 13.7 g/dL (13.0-16.5); Lymphocyte # 1.15 X10^3/ul (0.83-4.51); Lymphocyte % 7.3 % (19-41); Mean Corp Hgb Conc 32.3 g/dL (32-36); Mean Corpuscular Hgb 30.9 pg (27.0-32.0); Mean Corpuscular Volume 95.7 fL (80-94); Mean Platelet Vol. 11.3 fl (6.2-12.0); Monocyte# 0.86 X10^3/uL; Monocyte% 5.5 % (0-10); NRBC Flagged by Analyzer 0 % (0-5); Neutrophil # 13.41 X10^3/uL (2.7-7.7); Neutrophil % 85.5 % (47-70); Platelet Count 197 K/mm3 (150-450); RBC Distribution Width CV 13.5 % (11.6-14.6); RBC Distribution Width SD 47.9 fl (35.1-43.9); Red Blood Count 4.43 M/mm3 (4.6-6.2); White Blood Count 15.7 K/mm3 (4.4-11.0)
[2022-07-25 16:11] LABS: International Normalized Ratio 1.2
[2022-07-25 16:12] LABS: Partial Thromboplast Time 32.4 Seconds (24.1-36.2)
[2022-07-25 16:18] LABS: Mucous, Urine 0 SEEN /hpf (<or=2+)
[2022-07-25 16:19] LABS: ALB/GLOB Ratio 0.7 RATIO (0.9-2.4); AST(SGOT) 14 U/L (15-37); Alanine Aminotransfer ALT/SGPT < 6 U/L (16-61); Albumin, Serum 3.6 g/dL (3.2-5.0); Alkaline Phosphatase 98 U/L (45-117); Anion Gap 6 (5-15); BUN 19 mg/dL (7-18); BUN/Creat Ratio 18.8 RATIO (10-20); Calcium,Total 8.9 mg/dL (8.5-10.1); Chloride 106 mmol/L (98-107); Creatinine, Serum 1.01 mg/dL (0.70-1.30); EST Glomerular Filtration Rate 76 mL/min (>60); Est Glom Filt Rate - Afr Amer 92 mL/min (>60); Estimated Creatinine Clearance 56.69 ml/min; Globulin 4.9 g/dL (2.2-4.2); Glucose 110 mg/dL (74-106); Potassium 3.9 mmol/L (3.5-5.1); Protein, Total 8.5 g/dL (6.4-8.2); Sodium Level 140 mmol/L (136-145); Troponin-I HS 9 pg/mL (3.0-78.0)
[2022-07-25 16:32] LABS: Lactic Acid 1.5 mmol/L (0.4-1.9)
[2022-07-25 16:45] LABS: Color, Urine Yellow (Yellow); Glucose, Dipstick Normal (Normal); Ketone-Dipstick 5 mg/dl (Negative); Leukocyte Esterase-Dipstick 500 /ul (Negative); Nitrite-Dipstick Negative (Negative); Occult Blood-Urine 50 /ul (Negative); Protein-Dipstick 30 mg/dl (Negative); Urine Bilirubin Dipstick Negative (Negative); Urine Clarity Sl. Cloudy (Clear); Urine Urobilinogen 8 mg/dl (Normal)
[2022-07-25 17:04] LABS: Bacteria 3+ /hpf (None Seen); Red Blood Cells-Urine 10-25 SEEN /hpf (0-5); Squamous Epithelial Cells - UA 0-5 SEEN /hpf (0-5); White Blood Cells 50-100 SEEN /hpf (0-5)
--- NOTE | 2022-07-25 17:05 | NURSING ---
ICU NIKOS COPD, RESP FAILURE
[2022-07-25] MEDS: Ceftriaxone 1 GM/50 ML BAG IV (17:14)
--- NOTE | 2022-07-25 17:34 | NURSING ---
ICU 3
--- NOTE | 2022-07-25 18:21 | HP.PCM.HOS_ITS ---
HPI - General General Date of Admission: 07/25/22 Date of Service: 07/25/22 Chief Complaint: Dyspnea on exertion progressively worsening for 2 to 3 weeks HPI Narrative NIKOLAS HANSON, is a 77 M with history of COPD was brought to ED for shortness of breath and moist cough for the 2 to 3 weeks. Patient is ligatured short of breath even on walking few steps. He has history of smoking 3 packs/day in early 20s and he smoked for about 40 years. History is mainly taken from the patient's as patient has Parkinson disease with dementia and disordered behavior. Patient denies any chest pain pressure or tightness. Denies fevers or chills. Patient has moist cough progressively worsening for 2 to 3 weeks. Usually patient does not have cough from COPD. 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 Patient also has recurrent falls due to Parkinson disease with increased muscle rigidity especially of left lower extremity. Patient has bruises over knees and lower legs. In ED, patient was found short of breath [place] breathing and tachypneic. Patient was put on BiPAP and his breathing improved but he still gets short of breath and labored of BiPAP on nasal cannula therefore admitted in ICU. Chest x-ray individually reviewed did not show acute infiltrate. Patient does not burning micturition but has increased frequency and nocturia and wakes up to 2-3 times at night and takes Flomax due to BPH Lab work reviewed and discussed in assessment plan. Twelve-lead EKG shows sinus tachycardia at 108 bpm, LAD, QTC 431 ms [facility] Medical History Abdominal aortic aneurysm Atherosclerotic heart disease of [place] coronary artery without angina pectoris COPD (chronic obstructive pulmonary disease) Former smoker Parkinson's disease Raynauds disease Home Medications hospital bed #1 ea 02/23/20 [History Last Taken Unknown] walker #1 ea 04/14/20 [Rx Last Taken Unknown] carbidopa 25 mg-levodopa 100 mg tablet (Sinemet) 1 tab PO TIDCM@0900,1300,1800 parkinsons 02/24/21 [History Last Taken 07/25/22] carbidopa ER 50 mg-levodopa 200 mg tablet,extended release 1 tab PO BID parkinsons 12/07/21 [History Last Taken 07/25/22] quetiapine 25 mg tablet 25 mg PO QHS Sleep #30 tabs 02/13/22 [Rx Last Taken 07/24/22] tamsulosin 0.4 mg capsule 0.4 mg PO QHS BPH 30 days #30 caps 07/17/22 [Rx Last Taken 07/24/22] tramadol 50 mg tablet 50 mg PO Q6H PRN pain #150 tabs 07/24/22 [Rx Last Taken 07/25/22] auidxgfkmatoierj-KKX-qcnsvnn 2 mg-20 mg-325 mg effervescent tablet 1 ea PO BID GERD 07/25/22 [History Last Taken 07/24/22] escitalopram oxalate 10 mg tablet 10 mg PO QHS DEPRESSION 07/25/22 [History Last Taken 07/24/22] food supplemt, lactose-reduced 240 ml PO BID SUPPLEMENT 07/25/22 [History Last Taken 07/24/22] polyethylene glycol 3350 17 gram/dose oral powder (Miralax) 17 g PO DAILY CONSTIPATION 07/25/22 [History Last Taken 07/24/22] Allergy/AdvReac Type Severity Reaction Status Date / Time pregabalin [From Lyrica] AdvReac Severe hallucinati Verified 02/13/22 13:38 ons Family History Brother Alcoholism Father Heart disease Myocardial infarction Uncle Heart disease Myocardial infarction Grandfather Heart disease Myocardial infarction Mother Heart disease Surgical History History of cataract surgery History of colonoscopy History of left hip hemiarthroplasty History of tonsillectomy Social History household members: spouse Smoking Status: Former smoker how long ago did patient quit smokin alcohol intake: never substance use type: does not use what type of physical activity do you participate in: walking frequency: daily ROS ROS Narrative Constitutional: Reports fatigue and weakness. Recurrent fall. No fever HEENT: Reports systems reviewed and no addt'l complaints, except as documented Respiratory/Chest: Denies chest pain, rest as described in HPI Gastrointestinal: No nausea or vomiting. Takes stool softener. Mild constipation, denies coffee ground emesis, hematemesis or vomiting Genitourinary: Denies burning urination or new urinary tract symptoms Musculoskeletal: Parkinson's disease, muscle rigidity, and unsteady, and disequilibrium Neurologic: Denies seizure-like activity. Muscle rigidity Psychiatric: Dementia probably due to Parkinson's disease skin: Multiple bruises and superficial skin abrasions on lower extremities Endocrinology: Reports systems reviewed and no addt'l complaints, except as documented Hematologic/Lymphatic: Reports systems reviewed and no addt'l complaints, except as documented Rest 14 ROS are negative except as mentioned in HPI Vital Signs Vital Signs Vital Signs: 07/25/22 15:25 07/25/22 15:38 07/25/22 15:39 Temperature 99.8 F H Temperature Source Temporal Pulse Rate 110 H 102 H Respiratory Rate 26 H 36 H Respiratory Effort Short of Breath Labored Respiratory Pattern Tachypnea Blood Pressure 129/71 H 150/98 H Blood Pressure Mean 90 115 Pulse Ox 100 96 Oxygen Delivery Method Room Air Room Air Oxygen Flow Rate (L/min) Fraction of Inspired Oxygen (FIO2) 07/25/22 15:42 07/25/22 16:04 07/25/22 16:16 Temperature 101.4 F H Temperature Source Oral Pulse Rate 110 H 117 H Respiratory Rate 40 H 28 H Respiratory Effort Respiratory Pattern Tachypnea Blood Pressure 143/68 H Blood Pressure Mean 93 Pulse Ox 94 Oxygen Delivery Method Room Air Oxygen Flow Rate (L/min) Fraction of Inspired Oxygen (FIO2) 07/25/22 16:31 07/25/22 17:09 07/25/22 17:10 Temperature 99.2 F H 99.2 F H Temperature Source Oral Oral Pulse Rate 118 H 111 H 111 H Respiratory Rate 32 H 18 18 Respiratory Effort Respiratory Pattern Tachypnea Blood Pressure 138/110 H 138/110 H Blood Pressure Mean 119 119 Pulse Ox 93 90 92 Oxygen Delivery Method Room Air Nasal Cannula Oxygen Flow Rate (L/min) 2 Fraction of Inspired Oxygen (FIO2) 21 21 07/25/22 18:10 Temperature Temperature Source Pulse Rate 102 H Respiratory Rate Respiratory Effort Respiratory Pattern Blood Pressure Blood Pressure Mean Pulse Ox Oxygen Delivery Method Oxygen Flow Rate (L/min) Fraction of Inspired Oxygen (FIO2) Weight Weight: 141 lb 15.643 oz Body Mass Index (BMI) 19.2 Physical Exam Narrative Physical exam General: Alert, Oriented x3, Cooperative HEENT: Atraumatic, PERRLA, EOMI, Normocephalic Oral: Oral mucosa dry. No Gingival or Mucosal Lesions/ Ulcerations Neck: Supple, No JVD, Negative Carotid Bruits Lungs: Air entry severely diminished in bilateral lungs. Expiratory rhonchi. Tachypnea, dyspnea on minimal exertion Cardiovascular: Sinus tachycardia, Normal S1, Normal S2, No murmurs Abdomen: Bowel Sounds Present, Soft, Non Tender, Non-Distended : No renal angle tenderness. No suprapubic tenderness. Extremities: No edema, Capillary Refill Less than 3 Seconds Skin: Multiple superficial abrasions and bruises on knees and lower extremities Musculoskeletal: Muscle strength 4/5 at major joints, gait instability Neurological: Cranial nerves II-XII grossly intact, DTR 2+/4, hypertonia, DTR 2+/4 Psych/Mental Status: Cognitive deficit with comprehension, dementia Results Lab / Micro Data Result Diagrams: 07/25/22 15:40 07/25/22 15:40 Labs: Laboratory Results - last 24 hr 07/25/22 15:40: WBC 15.7 H, RBC 4.43 L, Hgb 13.7, Hct 42.4, MCV 95.7 H, MCH 30.9, MCHC 32.3, RDW Std Deviation 47.9 H, RDW Coeff of Boni 13.5, Plt Count 197, MPV 11.3, Immature Gran % (Auto) 1.100 H, Neut % (Auto) 85.5 H, Lymph % (Auto) 7.3 L, [place] % (Auto) 5.5, Eos % (Auto) 0.3, Baso % (Auto) 0.3, Absolute Neuts (auto) 13.4 H, Absolute Lymphs (auto) 1.15, Nucleated RBC % 0 07/25/22 15:40: PT 15.0 H, INR 1.2, APTT 32.4 07/25/22 15:40: Sodium 140, Potassium 3.9, Chloride 106, Carbon Dioxide 28.0, Anion Gap 6, BUN 19 H, Creatinine 1.01, Estim Creat Clear Calc 56.69, Est GFR (MDRD) Af Amer 92, Est GFR (MDRD) Non-Af 76, BUN/Creatinine Ratio 18.8, Glucose 110 H, Calcium 8.9, Total Bilirubin 1.40 H, AST 14 L, ALT < 6 L, Alkaline Phosphatase 98, Troponin I High Sens 9, Total Protein 8.5 H, Albumin 3.6, Globulin 4.9 H, Albumin/Globulin Ratio 0.7 L 07/25/22 15:40: Lactic Acid 1.5 07/25/22 16:15: Urine Color Yellow, Urine Clarity Sl. Cloudy, Urine pH 7.0, Ur Specific [place] 1.010, Urine Protein 30 H, Urine Glucose (UA) Normal, Urine Ketones 5 H, Urine Occult Blood 50 H, Urine Nitrite Negative, Urine Bilirubin Negative, Urine Urobilinogen 8 H, Ur Leukocyte Esterase 500 H, Urine RBC 10-25 SEEN, Urine WBC 50-100 SEEN, Ur Squamous Epith Cells 0-5 SEEN, Urine Bacteria 3+, Urine Mucus 0 SEEN Micro: Microbiology 07/25/22 15:50 Nasal Secretion SARS-CoV-2 & FLU Antigen (Rapid) - Final Radiology Impression Chest X-Ray 07/25/22 15:50 IMPRESSION: ASHD. No acute cardiopulmonary pathology. Electronically Signed: Ralf Pearce MD at 16:53 EDT , Assessment & Plan Assessment/Plan (1) Acute and chronic respiratory failure with hypoxia: (2) COPD exacerbation: PLAN: Plan This 77-year-old gentleman is being admitted for shortness of breath, dyspnea on minimal exertion, increased cough history of COPD exacerbation with acute hypoxic respiratory failure 1. Acute hypoxic respiratory failure on BiPAP due to COPD exacerbation: Even though, the patient is on 2 L of oxygen but he gets tachypneic dyspneic and short of breath off BiPAP and his respiratory status is tenuous therefore being admitted in ICU. Continue BiPAP support. ABG ordered. Adz Worker consulted. 2. COPD exacerbation: Patient has history of 80 pack years of smoking, at least 2 pack smoking for 40 years. On DuoNeb scheduled, IV Solu-Medrol, Mucinex, Pap and incentive spirometry. Chest x-ray image reviewed and does not show acute infiltrate. Patient is started on doxycycline as patient on multiple antianxiety's/antipsychotic medication which has increased interaction with azithromycin. Flu and COVID-19 rapid antigen are negative. Lactic acid normal. Mild leukocytosis with left shift. COVID-19 PCR, respiratory panel, blood cultures x2 ordered. Patient had total of 5 COVID vaccines 2 regular and 3 boosters. 3. BPH with irritative symptoms: Patient is still has increased frequency nocturia but denies burning micturition. UA shows bacteria 3+, WBC 5200 cells, LE 500 but nitrite negative. Empirically started on IV ceftriaxone. Urine culture pending. 4. Parkinson's disease with recurrent fall and bulges in lower extremities: Patient had nondisplaced left subcapital femur fracture for which she had surgery on 12/07/2021. Patient still has recurrent fall due to Parkinson disease with hypotonia. On Sinemet continued. Patient follows neurologist. PT and OT ordered 5. Dementia, depression: Home medications continued. Patient on quetiapine and escitalopram. VTE prophylaxis, moderate risk: Heparin 5000 units subcutaneous twice daily. Bilateral SCDs Living will/advanced directive/end of life care: Patient does have living will or advanced directive. His near the bedside is power of manager of customer billing for health. After discussion of benefits/risks procedures involved with full code, DNR CC arrest and DNR CC, with patient and , the preferred re suscitation in the beginning including intubation, CPR and ventilator but does not want to be with stable state if ventilation is prolonged (as patient himself has dementia). The patient's does want artificial life support including intubation, tube feed, ventilator and/chest compression, central venous catheter, vasopressor and DC shock if needed Total time spent in yfid-go-jwis encounter in discussion of advanced directive 16 minutes. Microbiology Past 72 Hours 07/25/22 15:50 Nasal Secretion SARS-CoV-2 & FLU Antigen (Rapid) - Final Laboratory Results 07/25/22 15:40: WBC 15.7 H, RBC 4.43 L, Hgb 13.7, Hct 42.4, MCV 95.7 H, MCH 30.9, MCHC 32.3, RDW Std Deviation 47.9 H, RDW Coeff of Boni 13.5, Plt Count 197, MPV 11.3, Immature Gran % (Auto) 1.100 H, Neut % (Auto) 85.5 H, Lymph % (Auto) 7.3 L, [place] % (Auto) 5.5, Eos % (Auto) 0.3, Baso % (Auto) 0.3, Absolute Neuts (auto) 13.4 H, Absolute Lymphs (auto) 1.15, Nucleated RBC % 0 07/25/22 15:40: PT 15.0 H, INR 1.2, APTT 32.4 07/25/22 15:40: Sodium 140, Potassium 3.9, Chloride 106, Carbon Dioxide 28.0, Anion Gap 6, BUN 19 H, Creatinine 1.01, Estim Creat Clear Calc 56.69, Est GFR (MDRD) Af Amer 92, Est GFR (MDRD) Non-Af 76, BUN/Creatinine Ratio 18.8, Glucose 110 H, Calcium 8.9, Total Bilirubin 1.40 H, AST 14 L, ALT < 6 L, Alkaline Phosphatase 98, Troponin I High Sens 9, Total Protein 8.5 H, Albumin 3.6, Globulin 4.9 H, Albumin/Globulin Ratio 0.7 L 07/25/22 15:40: Lactic Acid 1.5 07/25/22 15:40: Phosphorus Pending, Magnesium Pending 07/25/22 16:15: Urine Color Yellow, Urine Clarity Sl. Cloudy, Urine pH 7.0, Ur Specific [place] 1.010, Urine Protein 30 H, Urine Glucose (UA) Normal, Urine Ketones 5 H, Urine Occult Blood 50 H, Urine Nitrite Negative, Urine Bilirubin Negative, Urine Urobilinogen 8 H, Ur Leukocyte Esterase 500 H, Urine RBC 10-25 SEEN, Urine WBC 50-100 SEEN, Ur Squamous Epith Cells 0-5 SEEN, Urine Bacteria 3+, Urine Mucus 0 SEEN Charges/Coding Visit Charges Inpatient E&M: 03962 Init Hosp L3 Procedures Hospitalists Procedures: 83410 Advncd Care Plan 30 Min
[2022-07-25] MEDS: 0.9% Normal Saline 1,000 ML 100 ML IV (18:43)
[2022-07-25] MEDS: Carbidopa/Levodopa 25/100 Tablet PO (18:59)
[2022-07-25 19:05] LABS: Magnesium 2.4 mg/dL (1.6-2.6); Phosphorus 2.3 mg/dL (2.5-4.9)
[2022-07-25 19:51] LABS: Allen Test Negative; Base Excess -3 mmol/L (-2 to +2); Bicarbonate 21.6 mmol/L (22-26); Blood Gas Specimen Type ART; O2 Delivery Device Cannula; PO2 75 mmHG (75-100); SITE L Radial; SO2 96 % (95-99); Total Carbon Dioxide 23 mmol/L; pCO2 32.3 mmHg (35-45); pH 7.43 (7.35-7.45)
[2022-07-25] MEDS: 0.9% Saline Lock 10 ML Syringe IV (21:50)
--- NOTE | 2022-07-25 22:03 | NURSING ---
RN attempted to give pt his night time medications and pt refused all oral medications at that time. RN attempted to educated pt on the importance of taking his medications and pt was not accepting of the education.
[2022-07-26] VITALS (24 sets, daily range): BP systolic 104–147; BP diastolic 68–97; PULSE 79–109; RESP 12–24; TEMP 36.1–36.8; O2SAT 94–100
[2022-07-26] MEDS: Ipratropium/Albuterol Sulfate 3 ML AMPUL.NEB INHALATION ×7 (00:08→23:05)
--- NOTE | 2022-07-26 00:11 | CPS ---
Patient will need re-instructed on the use of this device as he has Dementia and Parkinsons disease and is confused off and on at baseline
[2022-07-26 03:53] LABS: Absolute Lymphocyte Count 0.44 X10^3/uL (0.83-4.51); Absolute Neutrophil Count 10.9 X10^3/uL (2.0-7.7); Basophil# 0.02 X10^3/uL; Basophil% 0.2 % (0-1); Hemoglobin 12.2 g/dL (13.0-16.5); Lymphocyte # 0.44 X10^3/ul (0.83-4.51); Lymphocyte % 3.8 % (19-41); Mean Corp Hgb Conc 32.1 g/dL (32-36); Mean Corpuscular Hgb 30.8 pg (27.0-32.0); Mean Platelet Vol. 11.4 fl (6.2-12.0); Monocyte# 0.16 X10^3/uL; Monocyte% 1.4 % (0-10); NRBC Flagged by Analyzer 0 % (0-5); Neutrophil # 10.91 X10^3/uL (2.7-7.7); Neutrophil % 93.7 % (47-70); POSITIVE DIFFERENTIAL YES; Platelet Count 159 K/mm3 (150-450); RBC Distribution Width CV 13.3 % (11.6-14.6); RBC Distribution Width SD 47.4 fl (35.1-43.9); Red Blood Count 3.96 M/mm3 (4.6-6.2); White Blood Count 11.6 K/mm3 (4.4-11.0)
[2022-07-26 03:54] LABS: Differential Indicated SCAN CRITERIA MET
[2022-07-26 04:03] LABS: Anion Gap 8 (5-15); BUN 15 mg/dL (7-18); BUN/Creat Ratio 15.8 RATIO (10-20); Calcium,Total 8.7 mg/dL (8.5-10.1); Chloride 108 mmol/L (98-107); Creatinine, Serum 0.95 mg/dL (0.70-1.30); EST Glomerular Filtration Rate 82 mL/min (>60); Est Glom Filt Rate - Afr Amer 99 mL/min (>60); Estimated Creatinine Clearance 60.26 ml/min; Glucose 172 mg/dL (74-106); Potassium 3.8 mmol/L (3.5-5.1); Sodium Level 140 mmol/L (136-145)
[2022-07-26 04:29] LABS: Macrocytosis 1+
--- NOTE | 2022-07-26 06:31 | EX.PCM.CONCC ---
Assessment & Plan Assessment/Plan (1) COPD exacerbation: PLAN: Plan RECOMMENDATIONS: 1. Supplemental oxygen to maintain saturations at or above 90%. 2. Continue antimicrobials, pending final culture results. 3. Continue scheduled bronchodilators and steroids. 4. Encourage incentive spirometer use and mobilize patient as tolerated. 5. The patient is medically stable for transfer out of the intensive care unit. IMPRESSIONS: 1. Shortness of breath and associated hypoxia Likely secondary to COPD exacerbation due to inadequate medical therapy on an outpatient basis. I do also suspect that an underlying urinary tract source of infection may have exacerbated his obstructive lung disease due to increased metabolic demand. The patient does not appear to be on a long-acting bronchodilators at his baseline, despite having had PFTs completed several years ago which demonstrated evidence of obstructive lung disease. For now, it is reasonable to continue scheduled bronchodilators and antimicrobials. IV steroids have already been initiated. The patient's respiratory status has improved. Recommend continuing to wean supplemental oxygen to maintain saturations at or above 90%. Encourage incentive spirometer use and mobilize patient as tolerated. 2. History of BPH/Parkinson's disease/dementia/depression Complicates care, management, recovery and prognosis. Continue home medications as indicated. This note was generated with [employer] dictation software. It may contain incorrect words, spelling, and punctuation that were not noted in checking the note before signing. HPI Consult Data Date of Consult: 07/27/22 HPI Narrative Reason for Consultation: Acute respiratory failure HPI Narrative: The patient is a 77-year-old male, with a history as outlined below, who presented to the emergency department on July 25 with progressive dyspnea and cough. The patient has a known history of COPD, anxiety, Parkinson's and dementia. The history that can be obtained from the patient is somewhat limited. However, he does report a prior tobacco abuse history, having quit years ago. He does not utilize supplemental oxygen at his baseline. He does follows with a wire taper on an outpatient basis. However, pulmonary function studies completed in February 2020 demonstrated an irreversible moderately severe obstructive ventilatory impairment with associated hyperinflation, air trapping and symmetric reduction in diffusing capacity. On presentation to the emergency department, the patient was noted to have a fever of 101.4 ?F. He was otherwise hemodynamically stable but noted to be tachycardic and tachypneic. Initial laboratory evaluation revealed an elevated white blood cell count to 16,000. Chemistry profile was notable for a total bili of 1.4. Urine analysis was notable for leukocyte esterase and 3+ urine bacteria. Lactic acid was normal at 1.5. COVID PCR was negative. Plain film chest x-ray demonstrated no acute cardiopulmonary process. In the emergency department, the patient required BiPAP support for short period of time. He was subsequently admitted to the medical intensive care unit for further management. Overnight, the patient has remained hemodynamically stable and is maintaining appropriate oxygen saturations on 2 L/min via nasal cannula. [facility] Medical History (Updated 07/26/22 @ 15:[address] Radha Driver, ) Abdominal aortic aneurysm Atherosclerotic heart disease of [place] coronary artery without angina pectoris COPD (chronic obstructive pulmonary disease) Former smoker Parkinson's disease Raynauds disease Home Medications hospital bed #1 ea 02/23/20 [History Last Taken Unknown] walker #1 ea 04/14/20 [Rx Last Taken Unknown] carbidopa 25 mg-levodopa 100 mg tablet (Sinemet) 1 tab PO TIDCM@0900,1300,1800 parkinsons 02/24/21 [History Last Taken 07/25/22] carbidopa ER 50 mg-levodopa 200 mg tablet,extended release 1 tab PO BID parkinsons 12/07/21 [History Last Taken 07/25/22] quetiapine 25 mg tablet 25 mg PO QHS Sleep #30 tabs 02/13/22 [Rx Last Taken 07/24/22] tamsulosin 0.4 mg capsule 0.4 mg PO QHS BPH 30 days #30 caps 07/17/22 [Rx Last Taken 07/24/22] tramadol 50 mg tablet 50 mg PO Q6H PRN pain #150 tabs 07/24/22 [Rx Last Taken 07/25/22] eauvhtoxiyzynlhh-OQA-qpptfol 2 mg-20 mg-325 mg effervescent tablet 1 ea PO BID GERD 07/25/22 [History Last Taken 07/24/22] escitalopram oxalate 10 mg tablet 10 mg PO QHS DEPRESSION 07/25/22 [History Last Taken 07/24/22] food supplemt, lactose-reduced 240 ml PO BID SUPPLEMENT 07/25/22 [History Last Taken 07/24/22] polyethylene glycol 3350 17 gram/dose oral powder (Miralax) 17 g PO DAILY CONSTIPATION 07/25/22 [History Last Taken 07/24/22] Allergy/AdvReac Type Severity Reaction Status Date / Time pregabalin [From Lyrica] AdvReac Severe hallucinati Verified 02/13/22 13:38 ons Family History Brother Alcoholism Father Heart disease Myocardial infarction Uncle Heart disease Myocardial infarction Grandfather Heart disease Myocardial infarction Mother Heart disease Surgical History History of cataract surgery History of colonoscopy History of left hip hemiarthroplasty History of tonsillectomy Social History household members: spouse Smoking Status: Former smoker how long ago did patient quit smokin alcohol intake: never substance use type: does not use what type of physical activity do you participate in: walking frequency: daily ROS ROS Narrative 10 systems were reviewed with pertinent positives as noted in the HPI above. Physical Exam Const alert and no apparent distress General Appearance: cooperative and frail HEENT normocephalic and head/scalp atraumatic Eyes PERRL and EOMs intact bilaterally Neck supple General: trachea midline Chest inspection of chest normal Resp normal respiratory effort Auscultation: diminished lung sounds; Negative for rales, rhonchi or wheezes Cardio regular rate and regular rhythm GI normal to inspection, nondistended, normoactive bowel sounds Extremity no clubbing, cyanosis or edema Skin no rashes or lesions noted Neuro no focal motor deficits Psych Mood & Affect: flat affect Lab / Micro Data Result Diagrams: 07/27/22 05:50 07/27/22 05:50 Labs: Laboratory Results - last 24 hr 07/25/22 15:40: WBC 15.7 H, RBC 4.43 L, Hgb 13.7, Hct 42.4, MCV 95.7 H, MCH 30.9, MCHC 32.3, RDW Std Deviation 47.9 H, RDW Coeff of Boni 13.5, Plt Count 197, MPV 11.3, Immature Gran % (Auto) 1.100 H, Neut % (Auto) 85.5 H, Lymph % (Auto) 7.3 L, [place] % (Auto) 5.5, Eos % (Auto) 0.3, Baso % (Auto) 0.3, Absolute Neuts (auto) 13.4 H, Absolute Lymphs (auto) 1.15, Nucleated RBC % 0 07/25/22 15:40: PT 15.0 H, INR 1.2, APTT 32.4 07/25/22 15:40: Sodium 140, Potassium 3.9, Chloride 106, Carbon Dioxide 28.0, Anion Gap 6, BUN 19 H, Creatinine 1.01, Estim Creat Clear Calc 56.69, Est GFR (MDRD) Af Amer 92, Est GFR (MDRD) Non-Af 76, BUN/Creatinine Ratio 18.8, Glucose 110 H, Calcium 8.9, Total Bilirubin 1.40 H, AST 14 L, ALT < 6 L, Alkaline Phosphatase 98, Troponin I High Sens 9, Total Protein 8.5 H, Albumin 3.6, Globulin 4.9 H, Albumin/Globulin Ratio 0.7 L 07/25/22 15:40: Lactic Acid 1.5 07/25/22 15:40: Phosphorus 2.3 L, Magnesium 2.4 07/25/22 16:15: Urine Color Yellow, Urine Clarity Sl. Cloudy, Urine pH 7.0, Ur Specific [place] 1.010, Urine Protein 30 H, Urine Glucose (UA) Normal, Urine Ketones 5 H, Urine Occult Blood 50 H, Urine Nitrite Negative, Urine Bilirubin Negative, Urine Urobilinogen 8 H, Ur Leukocyte Esterase 500 H, Urine RBC 10-25 SEEN, Urine WBC 50-100 SEEN, Ur Squamous Epith Cells 0-5 SEEN, Urine Bacteria 3+, Urine Mucus 0 SEEN 07/25/22 19:15: COVID-19 ([place]) Not Detected 07/26/22 03:40: WBC 11.6 H, RBC 3.96 L, Hgb 12.2 L, Hct 38.0 L, MCV 96.0 H, MCH 30.8, MCHC 32.1, RDW Std Deviation 47.4 H, RDW Coeff of Boni 13.3, Plt Count 159, MPV 11.4, Immature Gran % (Auto) 0.900, Neut % (Auto) 93.7 H, Lymph % (Auto) 3.8 L, [place] % (Auto) 1.4, Eos % (Auto) 0.0, Baso % (Auto) 0.2, Absolute Neuts (auto) 10.9 H, Absolute Lymphs (auto) 0.44 L, Nucleated RBC % 0, Macrocytosis 1+ 07/26/22 03:40: Sodium 140, Potassium 3.8, Chloride 108 H, Carbon Dioxide 24.0, Anion Gap 8, BUN 15, Creatinine 0.95, Estim Creat Clear Calc 60.26, Est GFR (MDRD) Af Amer 99, Est GFR (MDRD) Non-Af 82, BUN/Creatinine Ratio 15.8, Glucose 172 H, Calcium 8.7 Micro: Microbiology 07/25/22 19:15 Mucosa - Nasopharyngeal Respiratory Panel (PCR) - Final 07/25/22 16:15 Urine, Clean Catch Legionella Antigen - Final 07/25/22 16:15 Urine, Clean Catch Streptococcus pneumoniae Antigen (M - Final 07/25/22 15:50 Nasal Secretion SARS-CoV-2 & FLU Antigen (Rapid) - Final ABG Data ABG results: ABG 07/25/22 19:40 Specimen Type ART Sample Site L Radial pH 7.43 Bicarbonate Actual 21.6 L Total CO2 23 Base Excess -3 L O2 Saturation 96 ABG pCO2 32.3 L ABG pO2 75 Brian Test Negative O2 Delivery Device Cannula Radiology Impression Chest X-Ray 07/25/22 15:50 IMPRESSION: ASHD. No acute cardiopulmonary pathology. Electronically Signed: Ralf Pearce MD at 16:53 EDT , Charges/Coding Visit Charges Inpatient E&M: 06650 Init Hosp L3
[2022-07-26] MEDS: Carbidopa/Levodopa 25/100 Tablet PO ×3 (07:44→17:13)
[2022-07-26] MEDS: CARBIDOPA/LEVODOPA CR 50/200 Tablet PO ×2 (09:35→21:07)
[2022-07-26] MEDS: guaiFENesin 1,200 MG Tablet 1200 MG PO ×2 (09:35→21:06)
[2022-07-26] MEDS: Escitalopram Oxalate 10 MG Tablet PO (09:35)
--- NOTE | 2022-07-26 09:50 | CASEMGMT ---
RN CM Face to Face with for initial transition planning/care coordination assessment as patient has dementia. RN CM introduced self and role at [facility]. , Jennifer, willing to participate in assessment and is able to answer all questions appropriately. Care providers, pharmacy, and demographics verified. Jennifer wishes for patient to discharge home, denies need for home health at this time. states she has no further needs or concerns at this time. CM to follow for discharge planning needs that may arise. PCP: Casper Do Specialists: Marcia Neurologist in [place] Preferred [facility] [facility] Prescription Benefit: no Living Will/HPOA: yes, Jennifer Rhodes LNOK: Living Arrangements: Patient lives with in a 2 story home with bed and bath on first floor. No steps to enter the home. assists patient with ADLs in the home. Transportation: DME/HHC: patient has shower chair, grab bars, raised toilet, walker, and wheelchair at home. No previous HHC or SNF. Will monitor patient for possible home oxgyen at discharge. states she perfers [employer] and declines list for DME. Disposition Plan: Patient to discharge home with family support and follow-up plans in place. Cristina COELLO, RN, CM
[2022-07-26] MEDS: Heparin Injection (Vial) 5,000 UNIT/ML VIAL 5000 UNIT SC ×2 (10:09→21:06)
[2022-07-26] MEDS: Ceftriaxone 1 GM/50 ML BAG IV (10:09)
[2022-07-26] MEDS: FLU VACC QS2022-23(6MOS UP)/PF 60 MCG/0.5 ML SYRINGE IM (10:09)
[2022-07-26] MEDS: Doxycycline 100 MG CAPSULE PO ×2 (10:09→21:06)
--- NOTE | 2022-07-26 14:56 | PCM.PN.HOSP ---
Subjective Subjective Patient indicates his breathing is much better. He has been weaned to 2 L and now on room air. No requirement of BiPAP overnight. Patient denies any ongoing issues at this time. Objective Data Objective Data Vital Signs: Vital Signs Temp Pulse Resp BP Pulse Ox O2 Del Method O2 Flow Rate 97 F L 103 H 16 129/82 H 100 Room Air 2 07/26/22 14:37 07/26/22 14:37 07/26/22 14:37 07/26/22 14:37 07/26/22 14:37 07/26/22 14:39 07/26/22 07:00 FiO2 21 07/25/22 17:10 Oxygen Flow Rate (L/min) 2 Oxygen Delivery Method Room Air Weight: 63.9 kg Body Mass Index (BMI) 19.2 Intake & Output: Intake and Output for Last 24 Hours 07/24/22 07/25/22 07/26/22 23:59 23:59 23:59 Intake Total 805 / 805 1607 / 1607 Balance 805 / 805 1607 / 1607 Lab / Micro Data Result Diagrams: 07/26/22 03:40 07/26/22 03:40 Labs: Laboratory Results - last 24 hr 07/25/22 15:40: WBC 15.7 H, RBC 4.43 L, Hgb 13.7, Hct 42.4, MCV 95.7 H, MCH 30.9, MCHC 32.3, RDW Std Deviation 47.9 H, RDW Coeff of Boni 13.5, Plt Count 197, MPV 11.3, Immature Gran % (Auto) 1.100 H, Neut % (Auto) 85.5 H, Lymph % (Auto) 7.3 L, [place] % (Auto) 5.5, Eos % (Auto) 0.3, Baso % (Auto) 0.3, Absolute Neuts (auto) 13.4 H, Absolute Lymphs (auto) 1.15, Nucleated RBC % 0 07/25/22 15:40: PT 15.0 H, INR 1.2, APTT 32.4 07/25/22 15:40: Sodium 140, Potassium 3.9, Chloride 106, Carbon Dioxide 28.0, Anion Gap 6, BUN 19 H, Creatinine 1.01, Estim Creat Clear Calc 56.69, Est GFR (MDRD) Af Amer 92, Est GFR (MDRD) Non-Af 76, BUN/Creatinine Ratio 18.8, Glucose 110 H, Calcium 8.9, Total Bilirubin 1.40 H, AST 14 L, ALT < 6 L, Alkaline Phosphatase 98, Troponin I High Sens 9, Total Protein 8.5 H, Albumin 3.6, Globulin 4.9 H, Albumin/Globulin Ratio 0.7 L 07/25/22 15:40: Lactic Acid 1.5 07/25/22 15:40: Phosphorus 2.3 L, Magnesium 2.4 07/25/22 16:15: Urine Color Yellow, Urine Clarity Sl. Cloudy, Urine pH 7.0, Ur Specific [place] 1.010, Urine Protein 30 H, Urine Glucose (UA) Normal, Urine Ketones 5 H, Urine Occult Blood 50 H, Urine Nitrite Negative, Urine Bilirubin Negative, Urine Urobilinogen 8 H, Ur Leukocyte Esterase 500 H, Urine RBC 10-25 SEEN, Urine WBC 50-100 SEEN, Ur Squamous Epith Cells 0-5 SEEN, Urine Bacteria 3+, Urine Mucus 0 SEEN 07/25/22 19:15: COVID-19 ([facility]) Not Detected 07/26/22 03:40: WBC 11.6 H, RBC 3.96 L, Hgb 12.2 L, Hct 38.0 L, MCV 96.0 H, MCH 30.8, MCHC 32.1, RDW Std Deviation 47.4 H, RDW Coeff of Boni 13.3, Plt Count 159, MPV 11.4, Immature Gran % (Auto) 0.900, Neut % (Auto) 93.7 H, Lymph % (Auto) 3.8 L, [place] % (Auto) 1.4, Eos % (Auto) 0.0, Baso % (Auto) 0.2, Absolute Neuts (auto) 10.9 H, Absolute Lymphs (auto) 0.44 L, Nucleated RBC % 0, Macrocytosis 1+ 07/26/22 03:40: Sodium 140, Potassium 3.8, Chloride 108 H, Carbon Dioxide 24.0, Anion Gap 8, BUN 15, Creatinine 0.95, Estim Creat Clear Calc 60.26, Est GFR (MDRD) Af Amer 99, Est GFR (MDRD) Non-Af 82, BUN/Creatinine Ratio 15.8, Glucose 172 H, Calcium 8.7 Micro: Microbiology 07/25/22 16:15 Urine, Clean Catch Urine Culture - Preliminary GNR lactose mannequin maker 07/25/22 19:15 Mucosa - Nasopharyngeal Respiratory Panel (PCR) - Final 07/25/22 16:15 Urine, Clean Catch Legionella Antigen - Final 07/25/22 16:15 Urine, Clean Catch Streptococcus pneumoniae Antigen (M - Final 07/25/22 15:50 Nasal Secretion SARS-CoV-2 & FLU Antigen (Rapid) - Final ABG Data ABG results: ABG 07/25/22 19:40 Specimen Type ART Sample Site L Radial pH 7.43 Bicarbonate Actual 21.6 L Total CO2 23 Base Excess -3 L O2 Saturation 96 ABG pCO2 32.3 L ABG pO2 75 Brian Test Negative O2 Delivery Device Cannula Radiography Diagnostic Testing: Radiology Impression Chest X-Ray 07/25/22 15:50 IMPRESSION: ASHD. No acute cardiopulmonary pathology. Electronically Signed: Ralf Pearce MD at 16:53 EDT Reading Location ID and State: 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, currently on room air with no signs of respiratory distress, appears comfortable and nontoxic HEENT head/scalp atraumatic and moist oral mucous membranes HEENT Narrative: Dentition is poor, Mallampati is 2, no thrush Head and Scalp: normocephalic Resp normal respiratory effort, no retractions and no use of accessory muscles Resp Narrative: Diminished diffusely but clear Auscultation: Negative for crackles, rales, rhonchi or wheezes Cardio regular rate, regular rhythm, S1 normal heart sound, S2 normal heart sound, no murmurs, no rub, no gallops and no clicks GI normal to inspection, nondistended, normoactive bowel sounds, soft to palpation and non-tender GI Narrative: Thin Extremity no clubbing, cyanosis or edema Skin no rashes or lesions noted, no wounds, skin turgor normal, no jaundice, no petechiae and no mottling Skin Narrative: Skin is pale Neuro moves all extremities and no focal motor deficits Speech: speech normal Psych Psych Narrative: Affect appears somewhat flat and patient is pleasant but mildly confused Assessment & Plan Assessment/Plan (1) Leukocytosis: (2) Complicated urinary tract infection: (3) Hypoxia: (4) Shortness of breath: (5) Debility: PLAN: Plan Shortness of breath with associated hypoxia -Patient did not meet criteria for acute hypoxic respiratory failure as he did not have marked tachypnea, hypertension, or extensive oxygen requirements -Patient never required more than 2 L nasal cannula and currently is on room air with oxygen saturation 95 to 100% -Likely related to urinary tract infection as inciting factor for shortness of breath and the requirement of supplemental oxygen -Patient is not on any baseline therapy for COPD -Continue current antimicrobials -Continue bronchodilators -Continue I-S -Continue IV steroids as ordered however anticipate that we will be able to taper these quickly -Flu and COVID rapid negative -Respiratory viral panel negative -Strep pneumo and Legionella antigens negative -Blood cultures are pending -Urine culture shows growth with gram-negative francisco-lactose mannequin maker -We will have patient evaluated by speech therapy with Parkinson's disease and dementia which would increase his risk for aspiration Acute GNR-LF complicated cystitis -Likely inciting factor for above respiratory issues -Continue antibiotics as ordered and narrow as able -Await final cultures and sensitivities -Will need 10-day course of antibiotics at discharge given the fact that he is a male and this will be essentially a complicated UTI Leukocytosis -Improving with antibiotic therapy -Continue to monitor COPD -Patient with [id number] history -Previous PFTs done and are consistent with COPD -Patient is not on any baseline inhalers -We will recommend outpatient follow-up with pulmonary medicine after discharge BPH -Continue home Flomax Parkinson's disease with recurrent falls -Continue home carbidopa levodopa -PT/OT consultation Chronic constipation -Continue MiraLAX Depression/insomnia -Continue home Seroquel -continue home Lexapro Dementia -We will have patient evaluated by speech therapy as this along with his Parkinson's increases his risk for aspiration Debility -PT/OT consultation -May need placement versus home health at discharge DVT prophylaxis -Subcu heparin -SCDs CODE STATUS -full code Charges/Coding Visit Charges Inpatient E&M: 62550 Subs Hosp L2
[2022-07-26] MEDS: QUEtiapine 25 MG Tablet PO (21:06)
[2022-07-26] MEDS: Tamsulosin HCl 0.4 MG Capsule PO (21:06)
[2022-07-27] VITALS (7 sets, daily range): BP systolic 133–146; BP diastolic 79–95; PULSE 88–98; RESP 16–26; TEMP 36.6–36.7; O2SAT 94–98
[2022-07-27] MEDS: Ipratropium/Albuterol Sulfate 3 ML AMPUL.NEB INHALATION ×3 (03:25→11:12)
[2022-07-27] MEDS: 0.9% Saline Lock 10 ML Syringe IV (05:38)
[2022-07-27 06:05] LABS: Absolute Lymphocyte Count 0.56 X10^3/uL (0.83-4.51); Basophil# 0.01 X10^3/uL; Basophil% 0.1 % (0-1); Hematocrit 37.4 % (40-54); Hemoglobin 12.3 g/dL (13.0-16.5); Lymphocyte # 0.56 X10^3/ul (0.83-4.51); Lymphocyte % 5.1 % (19-41); Mean Corp Hgb Conc 32.9 g/dL (32-36); Mean Corpuscular Hgb 30.9 pg (27.0-32.0); Mean Platelet Vol. 11.2 fl (6.2-12.0); Monocyte# 0.28 X10^3/uL; Monocyte% 2.6 % (0-10); NRBC Flagged by Analyzer 0 % (0-5); Neutrophil # 9.97 X10^3/uL (2.7-7.7); Neutrophil % 91.6 % (47-70); POSITIVE DIFFERENTIAL YES; Platelet Count 170 K/mm3 (150-450); RBC Distribution Width CV 13.2 % (11.6-14.6); RBC Distribution Width SD 46.1 fl (35.1-43.9); Red Blood Count 3.98 M/mm3 (4.6-6.2); White Blood Count 10.9 K/mm3 (4.4-11.0)
[2022-07-27 06:14] LABS: Differential Indicated SCAN CRITERIA MET
[2022-07-27 06:34] LABS: Anion Gap 6 (5-15); BUN 21 mg/dL (7-18); BUN/Creat Ratio 24.6 RATIO (10-20); Calcium,Total 8.6 mg/dL (8.5-10.1); Chloride 111 mmol/L (98-107); Creatinine, Serum 0.85 mg/dL (0.70-1.30); EST Glomerular Filtration Rate 93 mL/min (>60); Est Glom Filt Rate - Afr Amer 112 mL/min (>60); Estimated Creatinine Clearance 66.82 ml/min; Glucose 141 mg/dL (74-106); Magnesium 2.6 mg/dL (1.6-2.6); Phosphorus 2.8 mg/dL (2.5-4.9); Potassium 3.9 mmol/L (3.5-5.1); Sodium Level 140 mmol/L (136-145)
--- NOTE | 2022-07-27 06:54 | PN.CC_ITS ---
Assessment & Plan Assessment/Plan (1) COPD exacerbation: PLAN: Plan RECOMMENDATIONS: 1. Continue antimicrobials as ordered to complete treatment course. 2. Continue scheduled bronchodilators. 3. Transition from IV steroids to prednisone 40 mg daily for the next 5 days. 4. Encourage incentive spirometer use and mobilize patient as tolerated. 5. Recommend outpatient pulmonary follow-up within 2 weeks of discharge from the hospital. 6. Given that the patient is stable from a respiratory perspective on room air, will sign off. Please call with any additional questions. IMPRESSIONS: 1. Shortness of breath and associated hypoxia Resolved. Likely secondary to COPD exacerbation due to inadequate medical therapy on an outpatient basis. I do also suspect that an underlying urinary tract source of infection may have exacerbated his obstructive lung disease due to increased metabolic demand. The patient does not appear to be on a long- acting bronchodilators at his baseline, despite having had PFTs completed several years ago which demonstrated evidence of obstructive lung disease. For now, it is reasonable to continue scheduled bronchodilators and antimicrobials. It is okay to transition to prednisone from my perspective with tentative plans for a 5-day burst of 40 mg daily. Encourage incentive spirometer use and mobilize patient as tolerated. Ideally, the patient would likely benefit from outpatient pulmonary follow-up within 2 weeks of discharge from the hospital. 2. Pansensitive Klebsiella cystitis Continue antimicrobials as ordered. 3. History of BPH/Parkinson's disease/dementia/depression Complicates care, management, recovery and prognosis. Continue home medications as indicated. This note was generated with [employer] dictation software. It may contain incorrect words, spelling, and punctuation that were not noted in checking the note before signing. Subjective Subjective The patient was seen and examined at the bedside this morning. Events from the last 24 hours have been reviewed. The patient is currently afebrile, hemodynamically stable and maintaining appropriate oxygen saturations on room air. The patient is on a modified diet after being evaluated by speech therapy yesterday. The patient remains on scheduled bronchodilators and IV steroids. Objective Data Objective Data The patient's most recent lab work, culture data and imaging studies have all been personally reviewed. Preliminary urine culture is demonstrating growth of a gram-negative francisco, lactose special delivery clerk. Vital Signs: Vital Signs Temp Pulse Resp BP Pulse Ox O2 Del Method O2 Flow Rate 97.9 F 88 16 146/95 H 95 Room Air 2 07/27/22 02:40 07/27/22 03:25 07/27/22 03:25 07/27/22 02:40 07/27/22 02:40 07/27/22 02:40 07/26/22 07:00 FiO2 21 07/25/22 17:10 Oxygen Flow Rate (L/min) 2 Oxygen Delivery Method Room Air Weight: 140 lb 10.479 oz Body Mass Index (BMI) 19.2 Intake & Output: Intake and Output for Last 24 Hours 07/25/22 07/26/22 07/27/22 23:59 23:59 23:59 Intake Total 805 / 805 1607 / 1607 Balance 805 / 805 1607 / 1607 Lab / Micro Data Attestation: I reviewed the patient's lab results. Result Diagrams: 07/27/22 05:50 07/27/22 05:50 Labs: Laboratory Results - last 24 hr 07/27/22 05:50: WBC 10.9, RBC 3.98 L, Hgb 12.3 L, Hct 37.4 L, MCV 94.0, MCH 30.9, MCHC 32.9, RDW Std Deviation 46.1 H, RDW Coeff of Boni 13.2, Plt Count 170, MPV 11.2, Immature Gran % (Auto) 0.600, Neut % (Auto) 91.6 H, Lymph % (Auto) 5.1 L, [place] % (Auto) 2.6, Eos % (Auto) 0.0, Baso % (Auto) 0.1, Absolute Neuts (auto) 10.0 H, Absolute Lymphs (auto) 0.56 L, Nucleated RBC % 0 07/27/22 05:50: Sodium 140, Potassium 3.9, Chloride 111 H, Carbon Dioxide 23.0, Anion Gap 6, BUN 21 H, Creatinine 0.85, Estim Creat Clear Calc 66.82, Est GFR (MDRD) Af Amer 112, Est GFR (MDRD) Non-Af 93, BUN/Creatinine Ratio 24.6 H, Gluc ose 141 H, Calcium 8.6, Phosphorus 2.8, Magnesium 2.6 Micro: Microbiology 07/25/22 16:15 Urine, Clean Catch Urine Culture - Preliminary GNR lactose special delivery clerk 07/25/22 19:15 Mucosa - Nasopharyngeal Respiratory Panel (PCR) - Final 07/25/22 16:15 Urine, Clean Catch Legionella Antigen - Final 07/25/22 16:15 Urine, Clean Catch Streptococcus pneumoniae Antigen (M - Final 07/25/22 15:50 Nasal Secretion SARS-CoV-2 & FLU Antigen (Rapid) - Final Physical Exam Const alert and no apparent distress General Appearance: cooperative and frail HEENT normocephalic and head/scalp atraumatic Eyes PERRL and EOMs intact bilaterally Neck supple General: trachea midline Chest inspection of chest normal Resp normal respiratory effort Auscultation: diminished lung sounds; Negative for rales, rhonchi or wheezes Cardio regular rate and regular rhythm GI normal to inspection, nondistended, normoactive bowel sounds Extremity no clubbing, cyanosis or edema Skin no rashes or lesions noted Neuro CN's II-XII intact bilaterally and no focal motor deficits Psych Mood & Affect: flat affect Charges/Coding Visit Charges Inpatient E&M: 98574 Subs Hosp L2
[2022-07-27] MEDS: Carbidopa/Levodopa 25/100 Tablet PO ×2 (08:22→13:01)
[2022-07-27] MEDS: Acetaminophen 500 MG Tablet 1000 MG PO (08:22)
--- NOTE | 2022-07-27 09:08 | CASEMGMT ---
Pt does not qualify for home oxygen at discharge. This RN CM to room to discuss d/c plan and pt/ state no concerns with going home at time of discharge. states pt is at norm and states no need for any further therapy at discharge. SStnisreen RN CM
[2022-07-27] MEDS: predniSONE 20 MG Tablet 40 MG PO (09:40)
[2022-07-27] MEDS: guaiFENesin 1,200 MG Tablet 1200 MG PO (09:40)
[2022-07-27] MEDS: Heparin Injection (Vial) 5,000 UNIT/ML VIAL 5000 UNIT SC (09:40)
[2022-07-27] MEDS: CARBIDOPA/LEVODOPA CR 50/200 Tablet PO (09:40)
[2022-07-27] MEDS: Doxycycline 100 MG CAPSULE PO (09:40)
[2022-07-27] MEDS: Polyethylene Glycol 3350 17 GM PACKET PO (09:41)
[2022-07-27] MEDS: Ceftriaxone 1 GM/50 ML BAG IV (09:46)
--- NOTE | 2022-07-27 11:46 | PCM.DC.SUM ---
Providers Date of Admission: 07/25/22 Date of Discharge: 07/27/22 Primary Care Physician: Dr. Casper Do, DO Consultations 07/25/22 18:31 Consult: Personal Shopper / Pulmonary Medicine Routine Consulting Provider: [facility] Reason for Consult: CHANEY, Acute resp failure EMERGENT Consult: No MD Notified: Yes Date Notified: 07/25/22 Time Notified: 18:31 Method of Notification: Text Reason For Visit: COPD EXAC Diagnosis Discharge Diagnosis (1) COPD exacerbation: Status: Chronic Code(s): J44.1 - Chronic obstructive pulmonary disease with (acute) exacerbation Medications at Discharge Home Medications hospital bed #1 ea 02/23/20 walker #1 ea 04/14/20 carbidopa 25 mg-levodopa 100 mg tablet (Sinemet) 1 tab PO TIDCM@0900,1300,1800 parkinsons 02/24/21 carbidopa ER 50 mg-levodopa 200 mg tablet,extended release 1 tab PO BID parkinsons 12/07/21 quetiapine 25 mg tablet 25 mg PO QHS Sleep #30 tabs 02/13/22 tamsulosin 0.4 mg capsule 0.4 mg PO QHS BPH 30 days #30 caps 07/17/22 tramadol 50 mg tablet 50 mg PO Q6H PRN pain #150 tabs 07/24/22 [id number]-[id number] 2 mg-20 mg-325 mg effervescent tablet 1 ea PO BID GERD 07/25/22 escitalopram oxalate 10 mg tablet 10 mg PO QHS DEPRESSION 07/25/22 food supplemt, lactose-reduced 240 ml PO BID SUPPLEMENT 07/25/22 polyethylene glycol 3350 17 gram/dose oral powder (Miralax) 17 g PO DAILY CONSTIPATION 07/25/22 cephalexin 500 mg capsule 500 mg PO Q6H #20 caps 07/27/22 guaifenesin 1,200 mg tablet, extended release 12 hr (Mucus Relief ER) 1,200 mg PO BID #0 tabs 07/27/22 prednisone 20 mg tablet 40 mg PO BREAKFAST #10 tabs 07/27/22 Hospital Course Operations None Procedures EKG and - (Chest x-ray) Summary of Care Provided Minutes Spent on Discharge: 36 Hospital Course: Mr. Rhodes is a 77-year-old white male who presents to the emergency department at [facility] on 07/25/2022 with progressively worsening dyspnea that had been worsening for approximately 2 to 3 weeks. Upon presentation the patient was complaining of shortness of breath with a moist cough. He did have a known history of tobacco abuse and smoked approximately 3 packs a day for 40 years. He has a known history of Parkinson's disease as well as dementia. He lives at home with his . He denies any chest pressure tightness as well as fever or chills. He had some recurrent falls due to his Parkinson's disease. Upon presentation the emergency department he was found to be shortness of breath with labored breathing and tachypnea initially. It is documented that he was placed on BiPAP however I do not see any documentation in the chart other than the history and physical where he was on BiPAP. If he was he was easily transitioned to nasal cannula and admitted to the ICU for concerns of decompensation. His chest x-ray did not show any infiltrates. He also complained of urinary frequency and some nocturia but no dysuria. Upon presentation he had a white count of 15.7 with a left shift but his CBC was otherwise normal. Coags were normal. ABG was obtained and found a pH of 7.43, PCO2 of 32.3, PO2 of 75 with a sat of 96% on nasal cannula at 2 L. His chemistry panel was overall unremarkable other than some mild hypophosphatemia. Cultures were obtained and the patient was placed on ceftriaxone and doxycycline. He was admitted to the intensive care unit but was able to be transferred to the medical floor the following day. He was weaned to room air on 07/26/2022 prior to being transferred to the medical floor. Blood cultures are negative, COVID and flu rapid were negative, strep pneumo and Legionella antigens were negative, and respiratory viral panel was negative. His UA was suggestive of urinary tract infection and a urine culture was obtained which demonstrated greater than 100,000 colonies of Klebsiella pneumonia the organism was overall fairly sensitive with resistant only to ampicillin and Macrobid. Prior to discharge the patient had 2 days of ceftriaxone and was converted to Keflex at the time of discharge to complete a total of 7-day course. He is also treated for COPD exacerbation during his hospital course and will be discharged with a burst dose of prednisone per pulmonary's request with 40 mg daily x5 days. He was evaluated by physical and Occupational Therapy during his hospital course and they both deemed him not in need of any further therapy services. It is recommended that he follow-up with his primary care physician within the next 2 weeks and with pulmonary medicine within the next 2 weeks. He was discharged in stable condition to home on 07/27/2022 in the care of his . Discharge diagnoses: Shortness of breath-resolved Hypoxia-resolved Klebsiella complicated urinary tract infection Leukocytosis-resolved COPD BPH Parkinson's Recurrent falls Chronic constipation Depression Insomnia Dementia Debility Physical Exam Const alert and no apparent distress Constitutional Narrative: Thin, older white male sitting up in a chair at the bedside, at bedside, patient appears comfortable nontoxic, confused but at baseline General Appearance: cooperative, comfortable, well kempt and well developed Orientation / Consciousness: awake, oriented to person and oriented to place Exam Limitations: other limitations Nutritional Appearance: thin HEENT normocephalic, head/scalp atraumatic and moist oral mucous membranes HEENT Narrative: Moderate hearing loss, dentition is poor, no thrush Eyes PERRL, EOMs intact bilaterally and conjunctivae normal Eyes Narrative: No scleral icterus Neck no lymphadenopathy Neck Narrative: Trachea midline, no thyroid enlargement Resp normal respiratory effort, no retractions and no use of accessory muscles Resp Narrative: Diminished diffusely but clear Auscultation: Negative for crackles, rales, rhonchi or wheezes Cardio regular rate, regular rhythm, S1 normal heart sound, S2 normal heart sound, no murmurs, no rub, no gallops and no clicks GI normal to inspection, nondistended, normoactive bowel sounds, soft to palpation and non-tender GI Narrative: Thin Extremity no clubbing, cyanosis or edema Skin no rashes or lesions noted, no wounds, skin turgor normal, no jaundice, no petechiae and no mottling Skin Narrative: Skin is pale Neuro CN's II-XII intact bilaterally, moves all extremities and no focal motor deficits Speech: speech normal Psych Psych Narrative: Affect appears somewhat flat and patient is pleasant but mildly confused Weight / BMI Weight Weight: 63.8 kg Body Mass Index (BMI) 19.2 ABG / Lab / Microbiology Data Result Diagrams: 07/27/22 05:50 07/27/22 05:50 Laboratory: Laboratory Results - last 24 hr 07/27/22 05:50: WBC 10.9, RBC 3.98 L, Hgb 12.3 L, Hct 37.4 L, MCV 94.0, MCH 30.9, MCHC 32.9, RDW Std Deviation 46.1 H, RDW Coeff of Boni 13.2, Plt Count 170, MPV 11.2, Immature Gran % (Auto) 0.600, Neut % (Auto) 91.6 H, Lymph % (Auto) 5.1 L, [place] % (Auto) 2.6, Eos % (Auto) 0.0, Baso % (Auto) 0.1, Absolute Neuts (auto) 10.0 H, Absolute Lymphs (auto) 0.56 L, Nucleated RBC % 0 07/27/22 05:50: Sodium 140, Potassium 3.9, Chloride 111 H, Carbon Dioxide 23.0, Anion Gap 6, BUN 21 H, Creatinine 0.85, Estim Creat Clear Calc 66.82, Est GFR (MDRD) Af Amer 112, Est GFR (MDRD) Non-Af 93, BUN/Creatinine Ratio 24.6 H, Glucose 141 H, Calcium 8.6, Phosphorus 2.8, Magnesium 2.6 Microbiology: Microbiology 07/25/22 15:47 Blood Culture (Wb) - Right Forearm Blood Culture - Preliminary No growth in 48 hours. 07/25/22 15:40 Blood Culture (Wb) - Anticubital Right Blood Culture - Preliminary No growth in 48 hours. 07/25/22 16:15 Urine, Clean Catch Urine Culture - Final Klebsiella pneumoniae sp pneum 07/25/22 19:15 Mucosa - Nasopharyngeal Respiratory Panel (PCR) - Final 07/25/22 16:15 Urine, Clean Catch Legionella Antigen - Final 07/25/22 16:15 Urine, Clean Catch Streptococcus pneumoniae Antigen (M - Final 07/25/22 15:50 Nasal Secretion SARS-CoV-2 & FLU Antigen (Rapid) - Final D/C Instructions Discharge Diet: No restrictions Discharge Activity: Return to Normal Activity Meaningful Use Info Meaningful Use Diagnoses (Choose all that apply): None applicable Discharge Plan Admission Admit Date/Time: 07/25/22 16:57 Primary Reason for Your Visit: Shortness of breath Attending Provider: Radha Driver Primary Care Provider: Casper Do Consulting Providers: Yuri Villafana ; César Sherman ; Mahendra Do ; [place] ; Hunter Flood ; Little,Zainab PROCESS DEVELOPMENT ENGINEER Discharge Orders/Prescriptions Prescriptions: New Mucus Relief ER 1,200 mg Tablet Extended Release 12hr 1,200 mg PO BID Qty: 0 0RF prednisone 20 mg Tablet 40 mg PO BREAKFAST Qty: 10 0RF Rx Instructions: Take daily for 5 days then discontinue cephalexin 500 mg capsule 500 mg PO Q6H Qty: 20 0RF Continued (DME) walker Qty: 1 0RF Rx Instructions: Walker with wheels, brakes, and seat quetiapine 25 mg tablet 25 mg PO QHS Qty: 30 1RF carbidopa-levodopa [Sinemet] 25-100 mg Tablet 1 tab PO TIDCM@0900,1300,1800 Rx Instructions: 1 TAB orally carbidopa-levodopa 50-200 mg Tablet Extended Release 1 tab PO BID [id number]-[id number] 2-20-325 mg Tablet, Effervescent 1 ea PO BID polyethylene glycol 3350 [Miralax] 17 gram/dose Powder 17 g PO DAILY food supplemt, lactose-reduced Liquid 240 ml PO BID escitalopram oxalate 10 mg tablet 10 mg PO QHS (DME) hospital bed Qty: 1 tamsulosin 0.4 mg capsule 0.4 mg PO QHS 30 Days Qty: 30 3RF tramadol 50 mg tablet 50 mg PO Q6H MDD 5 a day PRN (Reason: pain) Qty: 150 0RF Referrals / Follow Up: Casper Do DO [Primary Care Provider] - Within 2 Weeks Zainab Little NP, PROCESS DEVELOPMENT ENGINEER-C [Med Staff - Adv Practice Prof] - Within 2 Weeks (Hospital follow-up) Disposition Disposition (needs filled in before D/C Order can be placed): Home, Self Care Charges/Coding Visit Charges Inpatient E&M: 19590 Disch Hosp
== END 2022-07-27 13:54 | disposition home or self-care (01) | DRG 191 ==
LOC: ED 17:01 → ICU 17:32 → PCU 07-26 14:27
PROVIDERS: Admitting Provider Internal Medicine; Emergency Provider Emergency Medicine; PCP Family Medicine; Visit Provider Internal Medicine
DX: J44.1 Chronic obstructive pulmonary disease with (acute) exacerbation (principal); N39.0 Urinary tract infection, site not specified; E83.39 Other disorders of phosphorus metabolism; F03.90 Unspecified dementia, unspecified severity, without behavioral disturbance, psychotic disturbance, mood disturbance, and anxiety; G20 Parkinson's disease; I25.10 Atherosclerotic heart disease of native coronary artery without angina pectoris; K59.09 Other constipation; B96.1 Klebsiella pneumoniae [K. pneumoniae] as the cause of diseases classified elsewhere; Z87.891 Personal history of nicotine dependence; F32.A Depression, unspecified; Z66 Do not resuscitate; Z51.5 Encounter for palliative care; N40.0 Benign prostatic hyperplasia without lower urinary tract symptoms; R53.81 Other malaise; R09.02 Hypoxemia; G47.00 Insomnia, unspecified; R29.6 Repeated falls; Z23 Encounter for immunization
CPT/HCPCS: 36415; 36600; 71045; 80048; 80053; 81001; 82803; 83605; 83735; 84100; 84484; 85025; 85610; 85730; 87040; 87077; 87086; 87088; 87186; 87428; 87449; 87633; 87635; 92610; 93005; 94002; 94640; 94667; 94668; 97162; 97165; 99285; G0008; J7030; J7040; J7050; P9612; 90686; A4216; U0003; U0005

== ENCOUNTER 2022-08-18 08:41 | Inpatient (IN) | payer MEDICARE, OTHER, SELFPAY ==
[2022-08-18] VITALS (8 sets, daily range): BP systolic 111–149; BP diastolic 70–88; PULSE 55–101; RESP 14–18; TEMP 36.4–38.2; O2SAT 92–97; BMI 20.9; BMI 18.8
--- NOTE | 2022-08-18 09:02 | EKG12_ITS ---
Test Reason : ALT MENT STAT Blood Pressure : / mmHG Vent. Rate : 090 BPM Atrial Rate : 090 BPM P-R Int : 168 ms QRS Dur : 074 ms QT Int : 342 ms P-R-T Axes : 055 -65 061 degrees QTc Int : 418 ms Sinus rhythm with Fusion complexes Left axis deviation Abnormal ECG Confirmed by BUFFY SKINNER, JAIDEN ([id number]), manager editorial HENRY UP ([id number]) on 08/21/2022 11:03:05 AM Referred By: Confirmed By:JAIDEN BAER MD
--- NOTE | 2022-08-18 09:02 | CT_ITS ---
INDICATION: Altered mental status. EXAMINATION: CT BRAIN - CT Head or Brain W/O Contrast Injection TECHNIQUE: Multiple axial images were obtained of the head without intravenous contrast. A radiation dose optimization technique was used for this scan. IV Contrast dosage and agent: None. COMPARISON: 06/06/2019 FINDINGS: BRAIN PARENCHYMA: No intra- or extra-axial hemorrhage. No evidence of acute infarct. Mild chronic periventricular deep white matter changes. There is preservation of the garcia/white matter interface. Posterior fossa structures are unremarkable. Atherosclerotic calcifications of the cavernous internal carotid arteries. CSF SPACES: Mild atrophy appropriate for age. No hydrocephalus. Basal cisterns are patent. CALVARIUM, SKULL BASE, PARANASAL SINUSES AND MASTOID AIR CELLS: Clear. No discrete lytic or blastic abnormalities. ORBITS: Both globes, extraocular muscles, optic nerves and retrobulbar fat appear grossly unremarkable. CT/Brain/Head without Contrast IMPRESSION: No acute intracranial process. Electronically Signed: Fritz Abdul MD at 10:16 EST ,
--- NOTE | 2022-08-18 09:08 | EDS_ITS ---
HPI History of Present Illness Chief Complaint: Confusion Informant: spouse/S.O. Onset/Context/Timing Onset: Days (2) Context: Gradual Onset Timing: Continuous Quality: Confused Current Severity: Severe Maximum Severity: Severe Worsened by: Nothing in particular Relieved by: Nothing in particular Narrative Narrative: Patient has Parkinson's, usually can feed himself and go to the bathroom and walk with his walker but he cannot do any of that on his own now. He will swallow and eat if his feeds him yesterday and today. He is disoriented. All of this is new. She states he has COPD, he was in about a month ago for a flareup, he seems to be breathing well now according to her and does not have an acute cough. He has had a urine infection in the past as well according to her. Limited ROS due to confusion and trouble speaking. He can tell me that he is not having no pain. The states that he complained of some numbness in his legs earlier. She states he has been stiff all over and having trouble grasping things because he cannot relax his fingers. [facility] Medical History Abdominal aortic aneurysm Atherosclerotic heart disease of [place] coronary artery without angina pectoris COPD (chronic obstructive pulmonary disease) Debility Former smoker Parkinson's disease Raynauds disease Home Medications hospital bed #1 ea 02/23/20 [History Last Taken Unknown] walker #1 ea 04/14/20 [Rx Last Taken Unknown] carbidopa 25 mg-levodopa 100 mg tablet (Sinemet) 1 tab PO TIDCM@0900,1300,1800 parkinsons 02/24/21 [History Last Taken 07/25/22] carbidopa ER 50 mg-levodopa 200 mg tablet,extended release 1 tab PO BID parkinsons 12/07/21 [History Last Taken 07/25/22] tamsulosin 0.4 mg capsule 0.4 mg PO QHS BPH 30 days #30 caps 07/17/22 [Rx Last Taken 07/24/22] tramadol 50 mg tablet 50 mg PO Q6H PRN pain #150 tabs 07/24/22 [Rx Last Taken 07/25/22] escitalopram oxalate 10 mg tablet 10 mg PO QHS DEPRESSION 07/25/22 [History Last Taken 07/24/22] food supplemt, lactose-reduced 240 ml PO BID SUPPLEMENT 07/25/22 [History Last Taken 07/24/22] polyethylene glycol 3350 17 gram/dose oral powder (Miralax) 17 g PO DAILY CONSTIPATION 07/25/22 [History Last Taken 07/24/22] quetiapine 25 mg tablet 25 mg PO QHS Sleep #30 tabs 07/30/22 [Rx Last Taken Unknown] Allergy/AdvReac Type Severity Reaction Status Date / Time pregabalin [From Lyrica] AdvReac Severe hallucinati Verified 08/18/22 08:44 ons Family History Brother Alcoholism Father Heart disease Myocardial infarction Uncle Heart disease Myocardial infarction Grandfather Heart disease Myocardial infarction Mother Heart disease Surgical History History of cataract surgery History of colonoscopy History of left hip hemiarthroplasty History of tonsillectomy Social History household members: spouse Smoking Status: Former smoker how long ago did patient quit smokin alcohol intake: never substance use type: does not use what type of physical activity do you participate in: walking frequency: daily ROS ROS ED Review of Systems ROS Unobtainable: due to mental status Cardiovascular Cardiovascular: Denies chest pain Gastrointestinal Gastrointestinal: Denies abdominal pain Musculoskeletal Musculoskeletal: Denies back pain or neck pain Neurologic Neurologic: Reports paresthesias RLE and LLE; Denies headache(s) EXAM Physical Exam Const Vital Signs: 08/18/22 08:42 Temperature 99.4 F H Temperature Source Temporal Pulse Rate 101 H Respiratory Rate 14 Blood Pressure 132/77 H Blood Pressure Mean 95 Pulse Ox 95 Oxygen Delivery Method Room Air Positive well nourished and well developed General Appearance ED: well developed and NAD HEENT Reports moist mucous membranes normocephalic and atraumatic Eyes PERRL and EOMs intact bilaterally Eyes Narrative: Possibly decreased vision in left visual castillo, exam is limited, but answers finger counting confrontation questions to the right but not to the left Neck full ROM, no lymphadenopathy and supple Resp normal respiratory effort and clear to auscultation bilaterally Cardio regular rate, regular rhythm and no murmurs GI non-tender and non-distended Auscultation: normoactive bowel sounds Palpation: soft Back/Spine no CVA tenderness General Back: other FROM Extremity normal to inspection General Extremety ED: Negative for edema, pulses abnormal or tenderness General Extremity: Negative for edema or pulses abnormal Neuro CN's II-XII intact bilaterally and no sensory deficits noted Neuro Narrative: No dysarthria, but seems to have trouble speaking; he will start a sentence and then just stop but does not seem aware of it. Follows some commands but not all. Moves all 4 extremities equally, increased tone throughout all 4 extremities and equally symmetrically weak throughout. The only orientation question he answers is the year and he states 2001 and then he tried to correct himself as if he may know that it is 2021, but he cannot speak it. Sensorium / Orientation: awake, alert and orientation impaired Psych mental status grossly normal Skin no rashes or lesions noted and no wounds MDM MDM MDM Narrative Medical decision making narrative: Work-up unremarkable except for signs of acute infection on his urine. After talking with the , it sounds like he actually has had urinary frequency lately, acutely, so this is probably what is causing his symptoms/condition. Since he has a low-grade temperature here I am also obtaining blood cultures in addition to the urine culture prior to starting Rocephin, and plan will be to admit him given his level of function that has acutely declined. Lab Data Attestation: I reviewed the patient's lab results. Labs: Laboratory Results - last 24 hr 08/18/22 08/18/22 08/18/22 09:20 09:20 09:30 WBC 6.8 RBC 4.01 L Hgb 12.5 L Hct 38.0 L MCV 94.8 H MCH 31.2 MCHC 32.9 RDW Std Deviation 47.1 H RDW Coeff of Boni 13.4 Plt Count 181 MPV 10.9 Immature Gran % (Auto) 1.300 H Neut % (Auto) 75.2 H Lymph % (Auto) 16.6 L [place] % (Auto) 6.2 Eos % (Auto) 0.4 Baso % (Auto) 0.3 Absolute Neuts (auto) 5.1 Absolute Lymphs (auto) 1.13 Nucleated RBC % 0 Sodium 139 Potassium 4.2 Chloride 107 Carbon Dioxide 26.0 Anion Gap 6 BUN 18 Creatinine 0.97 Estim Creat Clear Calc 57.36 Est GFR (MDRD) Af Amer 97 Est GFR (MDRD) Non-Af 80 BUN/Creatinine Ratio 18.6 Glucose 105 Calcium 8.6 Total Bilirubin 0.80 AST 20 ALT < 6 L Alkaline Phosphatase 84 Troponin I High Sens 9 Total Protein 7.1 Albumin 3.0 L Globulin 4.1 Albumin/Globulin Ratio 0.7 L Urine Color Yellow Urine Clarity Sl. Cloudy Urine pH 6.5 Ur Specific [place] 1.010 Urine Protein 30 H Urine Glucose (UA) Normal Urine Ketones 5 H Urine Occult Blood 50 H Urine Nitrite Positive H Urine Bilirubin Negative Urine Urobilinogen 4 H Ur Leukocyte Esterase 500 H Urine RBC 0 SEEN Urine WBC 25-50 SEEN Ur Squamous Epith Cells 0 SEEN Urine Bacteria 3+ Urine Mucus 0 SEEN Radiography Chest X-Ray - ED: 1 View, Read by ED Physician, Chronic Changes and No Infiltrates Diagnostic Testing: Clinical Impression(s) from Imaging Studies Brain CT 08/18/22 09:02 IMPRESSION: No acute intracranial process. Electronically Signed: Fritz Abdul MD at 10:16 EST , Chest X-Ray 08/18/22 09:55 IMPRESSION: No radiographic evidence of acute cardiopulmonary disease. Electronically Signed: Fritz Abdul MD at 10:12 EST , Rhythm Strip Rhythm Strip: Sinus Rhythm Rate: 90 Ectopy: None EKG Initial EKG: Attestation: I personally reviewed and interpreted this EKG as follows: Interpretation: Sinus Rhythm, No Acute Injury Pattern and LAFB Prior EKG tracings: available for review Prior: Unchanged Discharge Plan Dx/Rx/DC Orders Clinical Impression: Acute encephalopathy, Debility, Parkinson's disease dementia, Urinary tract infection Disposition Disposition: Acute Care [facility] NIHSS NIHSS 1a. Level of Consciousness: Alert; keenly responsive 1b. LOC Questions: Answers neither question correctly. 1c. LOC Commands: Performs both tasks correctly. 2. Best Gaze: Normal 3. Visual: Partial hemianopia 4. Facial Palsy: Normal symmetrical movements 5a. Left Arm: Some effort against gravity; 5b. Right Arm: Some effort against gravity; 6a. Left Leg: No effort against gravity; leg falls to bed immediately 6b. Right Leg: No effort against gravity; leg falls to bed immediately 7. Limb Ataxia: Absent 8. Sensory: Normal; no sensory loss 9. Best Language: [id number] aphasia; 10. Dysarthria: Normal 11. Extinction and Inattention: No abnormality Total: 14 Stroke Questions Stroke Team Activated: No (Greater than 24 hours of symptoms)
[2022-08-18 09:30] LABS: Absolute Lymphocyte Count 1.13 X10^3/uL (0.83-4.51); Absolute Neutrophil Count 5.1 X10^3/uL (2.0-7.7); Basophil# 0.02 X10^3/uL; Basophil% 0.3 % (0-1); Eosinophil# 0.03 X10^3/uL; Eosinophils% 0.4 % (0-5); Hemoglobin 12.5 g/dL (13.0-16.5); Lymphocyte # 1.13 X10^3/ul (0.83-4.51); Lymphocyte % 16.6 % (19-41); Mean Corp Hgb Conc 32.9 g/dL (32-36); Mean Corpuscular Hgb 31.2 pg (27.0-32.0); Mean Corpuscular Volume 94.8 fL (80-94); Mean Platelet Vol. 10.9 fl (6.2-12.0); Monocyte# 0.42 X10^3/uL; Monocyte% 6.2 % (0-10); NRBC Flagged by Analyzer 0 % (0-5); Neutrophil # 5.13 X10^3/uL (2.7-7.7); Neutrophil % 75.2 % (47-70); Platelet Count 181 K/mm3 (150-450); RBC Distribution Width CV 13.4 % (11.6-14.6); RBC Distribution Width SD 47.1 fl (35.1-43.9); Red Blood Count 4.01 M/mm3 (4.6-6.2); White Blood Count 6.8 K/mm3 (4.4-11.0)
[2022-08-18 09:35] LABS: Mucous, Urine 0 SEEN /hpf (<or=2+); Red Blood Cells-Urine 0 SEEN /hpf (0-5); Squamous Epithelial Cells - UA 0 SEEN /hpf (0-5)
[2022-08-18 09:36] LABS: Color, Urine Yellow (Yellow); Glucose, Dipstick Normal (Normal); Ketone-Dipstick 5 mg/dl (Negative); Leukocyte Esterase-Dipstick 500 /ul (Negative); Nitrite-Dipstick Positive (Negative); Occult Blood-Urine 50 /ul (Negative); Protein-Dipstick 30 mg/dl (Negative); Urine Bilirubin Dipstick Negative (Negative); Urine Clarity Sl. Cloudy (Clear); Urine Urobilinogen 4 mg/dl (Normal); Urine pH 6.5 (5.0 - 8.0)
[2022-08-18 09:42] LABS: Bacteria 3+ /hpf (None Seen); White Blood Cells 25-50 SEEN /hpf (0-5)
--- NOTE | 2022-08-18 09:55 | RAD_ITS ---
INDICATION: weakness EXAMINATION/TECHNIQUE: X-RAY - XR Chest 1 View COMPARISON: 07/25/2022. FINDINGS: LINES/DEVICES: None. LUNGS: No consolidation, edema or effusion. No pneumothorax. MEDIASTINUM AND CARDIOVASCULAR STRUCTURES: Cardiac silhouette not enlarged. Central airways and mediastinal contour are unremarkable. BONES AND SOFT TISSUES: No definite acute changes. RAD/Chest 1 View (Portable) IMPRESSION: No radiographic evidence of acute cardiopulmonary disease. Electronically Signed: Fritz Abdul MD at 10:12 [facility] ,
--- NOTE | 2022-08-18 10:09 | NURSING ---
DR REDDY FOR DR DUVAL
[2022-08-18 10:14] LABS: ALB/GLOB Ratio 0.7 RATIO (0.9-2.4); AST(SGOT) 20 U/L (15-37); Alanine Aminotransfer ALT/SGPT < 6 U/L (16-61); Alkaline Phosphatase 84 U/L (45-117); Anion Gap 6 (5-15); BUN 18 mg/dL (7-18); BUN/Creat Ratio 18.6 RATIO (10-20); Calcium,Total 8.6 mg/dL (8.5-10.1); Chloride 107 mmol/L (98-107); Creatinine, Serum 0.97 mg/dL (0.70-1.30); EST Glomerular Filtration Rate 80 mL/min (>60); Est Glom Filt Rate - Afr Amer 97 mL/min (>60); Estimated Creatinine Clearance 57.36 ml/min; Globulin 4.1 g/dL (2.2-4.2); Glucose 105 mg/dL (74-106); Potassium 4.2 mmol/L (3.5-5.1); Protein, Total 7.1 g/dL (6.4-8.2); Sodium Level 139 mmol/L (136-145); Troponin-I HS 9 pg/mL (3.0-78.0)
[2022-08-18] MEDS: 0.9% Normal Saline 1,000 ML 150 ML IV (10:21)
[2022-08-18] MEDS: Ceftriaxone 1 GM/50 ML BAG IV (10:21)
--- NOTE | 2022-08-18 10:22 | NURSING ---
MED SURG KOTSONIS UTI, ACUTE ENCEPHOLOPATHY, PARKINSONS, DEMENTIA
--- NOTE | 2022-08-18 11:04 | HP.PCM.HOS_ITS ---
HPI - General General Date of Admission: 08/18/22 HPI Narrative NIKOLAS HANSON, is a 77 M who presents to the hospital with increased confusion and weakness. He does have a history of progressive Parkinson's disease with Parkinson's dementia. He recently had a UTI in the beginning of July and was sent home after treatment. Between then and now his said that he had returned essentially back to baseline however over the last 24 to 48 hours she has noticed increased confusion as well as increased weakness. Yesterday he could not feed himself when normally he is fairly independent with all of his activities of daily living. In the ER he was found to have a normal white count but a contaminated UA. He is confused with not knowing what year it is or specifically which hospital he is in. [facility] Medical History Abdominal aortic aneurysm Atherosclerotic heart disease of [place] coronary artery without angina pectoris COPD (chronic obstructive pulmonary disease) Debility Former smoker Parkinson's disease Raynauds disease Home Medications hospital bed #1 ea 02/23/20 [History Last Taken Unknown] walker #1 ea 04/14/20 [Rx Last Taken Unknown] carbidopa 25 mg-levodopa 100 mg tablet (Sinemet) 1 tab PO TIDCM@0900,1300,1800 parkinsons 02/24/21 [History Last Taken 07/25/22] carbidopa ER 50 mg-levodopa 200 mg tablet,extended release 1 tab PO BID parkinsons 12/07/21 [History Last Taken 07/25/22] tamsulosin 0.4 mg capsule 0.4 mg PO QHS BPH 30 days #30 caps 07/17/22 [Rx Last Taken 07/24/22] tramadol 50 mg tablet 50 mg PO Q6H PRN pain #150 tabs 07/24/22 [Rx Last Taken 07/25/22] escitalopram oxalate 10 mg tablet 10 mg PO QHS DEPRESSION 07/25/22 [History Last Taken 07/24/22] food supplemt, lactose-reduced 240 ml PO BID SUPPLEMENT 07/25/22 [History Last Taken 07/24/22] polyethylene glycol 3350 17 gram/dose oral powder (Miralax) 17 g PO DAILY CONSTIPATION 07/25/22 [History Last Taken 07/24/22] quetiapine 25 mg tablet 25 mg PO QHS Sleep #30 tabs 07/30/22 [Rx Last Taken Unknown] Allergy/AdvReac Type Severity Reaction Status Date / Time pregabalin [From Lyrica] AdvReac Severe hallucinati Verified 08/18/22 08:44 ons Family History Brother Alcoholism Father Heart disease Myocardial infarction Uncle Heart disease Myocardial infarction Grandfather Heart disease Myocardial infarction Mother Heart disease Surgical History History of cataract surgery History of colonoscopy History of left hip hemiarthroplasty History of tonsillectomy Social History household members: spouse Smoking Status: Former smoker how long ago did patient quit smokin alcohol intake: never substance use type: does not use what type of physical activity do you participate in: walking frequency: daily ROS Constitutional Constitutional: Denies chills, fatigue, fever(s) or malaise Eyes Eyes: Denies blurry vision ENT HEENT: Denies headache(s) or nasal discharge Cardiovascular Cardiovascular: Denies chest pain, dyspnea on exertion or syncope Respiratory/Chest Respiratory/Chest: Denies cough, shortness of breath at rest or shortness of breath with exertion Gastrointestinal Gastrointestinal: Reports abdominal pain; Denies constipation, diarrhea, nausea or vomiting Genitourinary Genitourinary: Denies dysuria Neurologic Neurologic: Reports confusion; Denies focal weakness, numbness or tremor(s) Psychiatric Psychiatric: Denies anxiety or depression Vital Signs Vital Signs Vital Signs: 08/18/22 08:42 08/18/22 10:19 08/18/22 10:41 Temperature 99.4 F H 97.6 F L Temperature Source Temporal Temporal Pulse Rate 101 H 91 Respiratory Rate 14 18 Blood Pressure 132/77 H 130/88 H 130/88 H Blood Pressure Mean 95 102 102 Pulse Ox 95 94 Oxygen Delivery Method Room Air Room Air Weight Weight: 138 lb Body Mass Index (BMI) 20.9 Physical Exam Narrative General: Alert, confused, Cooperative, No apparent distress HEENT: Atraumatic, PERRLA, EOMI, Normocephalic Oral: Moist mucosa Neck: Supple, No JVD Lungs: Clear to auscultation, Normal air movement, No rhonchi, No wheeze, No rales Cardiovascular: Regular rate, Regular Rhythm, Normal S1, Normal S2, No murmurs Abdomen: Soft, Non Tender, Non-Distended, No Hepato-splenomegaly Extremities: No edema, Capillary Refill Less than 3 Seconds Skin: No rashes, No breakdown Musculoskeletal: No Tenderness to Palpation of Joints or Extremities Neurological: Cranial nerves II-XII grossly intact, leadpipe rigidity Psych/Mental Status: Normal Affect, Appropriate Results Lab / Micro Data Result Diagrams: 08/18/22 09:20 08/18/22 09:20 Labs: Laboratory Results - last 24 hr 08/18/22 09:20: WBC 6.8, RBC 4.01 L, Hgb 12.5 L, Hct 38.0 L, MCV 94.8 H, MCH 31.2, MCHC 32.9, RDW Std Deviation 47.1 H, RDW Coeff of Boni 13.4, Plt Count 181, MPV 10.9, Immature Gran % (Auto) 1.300 H, Neut % (Auto) 75.2 H, Lymph % (Auto) 16.6 L, [place] % (Auto) 6.2, Eos % (Auto) 0.4, Baso % (Auto) 0.3, Absolute Neuts (auto) 5.1, Absolute Lymphs (auto) 1.13, Nucleated RBC % 0 08/18/22 09:20: Sodium 139, Potassium 4.2, Chloride 107, Carbon Dioxide 26.0, Anion Gap 6, BUN 18, Creatinine 0.97, Estim Creat Clear Calc 57.36, Est GFR (MDRD) Af Amer 97, Est GFR (MDRD) Non-Af 80, BUN/Creatinine Ratio 18.6, Glucose 105, Calcium 8.6, Total Bilirubin 0.80, AST 20, ALT < 6 L, Alkaline Phosphatase 84, Troponin I High Sens 9, Total Protein 7.1, Albumin 3.0 L, Globulin 4.1, Albumin/Globulin Ratio 0.7 L 08/18/22 09:30: Urine Color Yellow, Urine Clarity Sl. Cloudy, Urine pH 6.5, Ur Specific [place] 1.010, Urine Protein 30 H, Urine Glucose (UA) Normal, Urine K etones 5 H, Urine Occult Blood 50 H, Urine Nitrite Positive H, Urine Bilirubin Negative, Urine Urobilinogen 4 H, Ur Leukocyte Esterase 500 H, Urine RBC 0 SEEN, Urine WBC 25-50 SEEN, Ur Squamous Epith Cells 0 SEEN, Urine Bacteria 3+, Urine Mucus 0 SEEN Micro: Microbiology 08/18/22 09:20 Nasal Secretion SARS-CoV-2 Antigen (Rapid) - Final Rhythm Strip Rhythm Strip: Sinus Rhythm Rate: 90 Ectopy: None Radiology Impression Brain CT 08/18/22 09:02 IMPRESSION: No acute intracranial process. Electronically Signed: Fritz Abdul MD at 10:16 EST , Chest X-Ray 08/18/22 09:55 IMPRESSION: No radiographic evidence of acute cardiopulmonary disease. Electronically Signed: Fritz Abdul MD at 10:12 EST , Assessment & Plan Assessment/Plan (1) Acute encephalopathy: (2) Urinary tract infection: PLAN: Plan 1. Acute metabolic encephalopathy secondary to UTI/BPH ? His last UTI was in July and it was a pansensitive Klebsiella ? Does not meet sepsis criteria ? Continue with Rocephin ? On discharge will need to follow-up with urology ? Continue with Flomax, may benefit from finasteride as an outpatient 2. Parkinson's with Parkinson's dementia ? We will continue with his Sinemet as well as his escitalopram ? We will have him evaluated by PT/OT ? We will hold his Seroquel given his altered mental status DVT: Lovenox Charges/Coding Visit Charges Inpatient E&M: 22118 Init Hosp L2
[2022-08-18] MEDS: 0.9% Normal Saline 1,000 ML 75 ML IV ×2 (13:21→22:42)
[2022-08-18] MEDS: Carbidopa/Levodopa 25/100 Tablet PO ×2 (14:20→18:17)
[2022-08-18] MEDS: Acetaminophen 650 MG Suppository RC (22:47)
[2022-08-19] VITALS (10 sets, daily range): BP systolic 129–156; BP diastolic 75–88; PULSE 71–92; RESP 16–18; TEMP 36.1–37.3; O2SAT 95–99
[2022-08-19 07:22] LABS: Absolute Lymphocyte Count 0.92 X10^3/uL (0.83-4.51); Absolute Neutrophil Count 4.1 X10^3/uL (2.0-7.7); Basophil# 0.03 X10^3/uL; Basophil% 0.5 % (0-1); Eosinophil# 0.11 X10^3/uL; Eosinophils% 1.8 % (0-5); Hematocrit 38.2 % (40-54); Hemoglobin 12.6 g/dL (13.0-16.5); Lymphocyte # 0.92 X10^3/ul (0.83-4.51); Lymphocyte % 15.2 % (19-41); Mean Corpuscular Hgb 31.1 pg (27.0-32.0); Mean Corpuscular Volume 94.3 fL (80-94); Monocyte# 0.84 X10^3/uL; Monocyte% 13.9 % (0-10); NRBC Flagged by Analyzer 0 % (0-5); Neutrophil # 4.08 X10^3/uL (2.7-7.7); Neutrophil % 67.4 % (47-70); Platelet Count 179 K/mm3 (150-450); RBC Distribution Width CV 13.2 % (11.6-14.6); RBC Distribution Width SD 46.7 fl (35.1-43.9); Red Blood Count 4.05 M/mm3 (4.6-6.2); White Blood Count 6.1 K/mm3 (4.4-11.0)
[2022-08-19 07:54] LABS: Anion Gap 7 (5-15); BUN 15 mg/dL (7-18); BUN/Creat Ratio 16.6 RATIO (10-20); Calcium,Total 8.3 mg/dL (8.5-10.1); Chloride 107 mmol/L (98-107); EST Glomerular Filtration Rate 87 mL/min (>60); Est Glom Filt Rate - Afr Amer 105 mL/min (>60); Glucose 94 mg/dL (74-106); Potassium 3.7 mmol/L (3.5-5.1); Sodium Level 139 mmol/L (136-145)
[2022-08-19] MEDS: Carbidopa/Levodopa 25/100 Tablet PO ×3 (08:01→17:10)
--- NOTE | 2022-08-19 08:55 | PCM.PN.HOSP ---
Subjective Subjective Seems to be doing a little bit better, he knows that he is in [place] but he still thinks is 2000 and that Parviz Arndt is president Objective Data Objective Data Vital Signs: Vital Signs Temp Pulse Resp BP Pulse Ox O2 Del Method 97.6 F L 89 16 156/87 H 99 Room Air 08/19/22 07:59 08/19/22 07:59 08/19/22 07:59 08/19/22 07:59 08/19/22 07:59 08/19/22 08:06 Oxygen Delivery Method Room Air Weight: 135 lb 8 oz Body Mass Index (BMI) 18.8 Intake & Output: Intake and Output for Last 24 Hours 08/18/22 08/19/22 08/20/22 03:59 03:59 03:59 Intake Total 1498.75 / 1498.75 250 / 250 Balance 1498.75 / 1498.75 250 / 250 Lab / Micro Data Result Diagrams: 08/19/22 06:47 08/19/22 06:47 Labs: Laboratory Results - last 24 hr 08/18/22 09:20: WBC 6.8, RBC 4.01 L, Hgb 12.5 L, Hct 38.0 L, MCV 94.8 H, MCH 31.2, MCHC 32.9, RDW Std Deviation 47.1 H, RDW Coeff of Boni 13.4, Plt Count 181, MPV 10.9, Immature Gran % (Auto) 1.300 H, Neut % (Auto) 75.2 H, Lymph % (Auto) 16.6 L, [place] % (Auto) 6.2, Eos % (Auto) 0.4, Baso % (Auto) 0.3, Absolute Neuts (auto) 5.1, Absolute Lymphs (auto) 1.13, Nucleated RBC % 0 08/18/22 09:20: Sodium 139, Potassium 4.2, Chloride 107, Carbon Dioxide 26.0, Anion Gap 6, BUN 18, Creatinine 0.97, Estim Creat Clear Calc 57.36, Est GFR (MDRD) Af Amer 97, Est GFR (MDRD) Non-Af 80, BUN/Creatinine Ratio 18.6, Glucose 105, Calcium 8.6, Total Bilirubin 0.80, AST 20, ALT < 6 L, Alkaline Phosphatase 84, Troponin I High Sens 9, Total Protein 7.1, Albumin 3.0 L, Globulin 4.1, Albumin/Globulin Ratio 0.7 L 08/18/22 09:30: Urine Color Yellow, Urine Clarity Sl. Cloudy, Urine pH 6.5, Ur Specific [place] 1.010, Urine Protein 30 H, Urine Glucose (UA) Normal, Urine Ketones 5 H, Urine Occult Blood 50 H, Urine Nitrite Positive H, Urine Bilirubin Negative, Urine Urobilinogen 4 H, Ur Leukocyte Esterase 500 H, Urine RBC 0 SEEN, Urine WBC 25-50 SEEN, Ur Squamous Epith Cells 0 SEEN, Urine Bacteria 3+, Urine Mucus 0 SEEN 08/19/22 06:47: WBC 6.1, RBC 4.05 L, Hgb 12.6 L, Hct 38.2 L, MCV 94.3 H, MCH 31.1, MCHC 33.0, RDW Std Deviation 46.7 H, RDW Coeff of Boni 13.2, Plt Count 179, MPV 11.0, Immature Gran % (Auto) 1.200 H, Neut % (Auto) 67.4, Lymph % (Auto) 15.2 L, [place] % (Auto) 13.9 H, Eos % (Auto) 1.8, Baso % (Auto) 0.5, Absolute Neuts (auto) 4.1, Absolute Lymphs (auto) 0.92, Nucleated RBC % 0 08/19/22 06:47: Sodium 139, Potassium 3.7, Chloride 107, Carbon Dioxide 25.0, Anion Gap 7, BUN 15, Creatinine 0.90, Estim Creat Clear Calc 60.70, Est GFR (MDRD) Af Amer 105, Est GFR (MDRD) Non-Af 87, BUN/Creatinine Ratio 16.6, Glucose 94, Calcium 8.3 L Micro: Microbiology 08/18/22 09:20 Nasal Secretion SARS-CoV-2 Antigen (Rapid) - Final Radiography Diagnostic Testing: Radiology Impression Brain CT 08/18/22 09:02 IMPRESSION: No acute intracranial process. Electronically Signed: Fritz Abdul MD at 10:16 EST , Chest X-Ray 11/12/22 09:55 IMPRESSION: No radiographic evidence of acute cardiopulmonary disease. Electronically Signed: Fritz Abdul MD at 10:12 EST , Rhythm Strip Rhythm Strip: Sinus Rhythm Rate: 90 Ectopy: None Physical Exam Narrative General: Alert, oriented to place, Cooperative, No apparent distress HEENT: Atraumatic, PERRLA, EOMI, Normocephalic Oral: Moist mucosa Neck: Supple, No JVD Lungs: Clear to auscultation, Normal air movement, No rhonchi, No wheeze, No rales Cardiovascular: Regular rate, Regular Rhythm, Normal S1, Normal S2, No murmurs Abdomen: Soft, Non Tender, Non-Distended, No Hepato-splenomegaly Extremities: No edema, Capillary Refill Less than 3 Seconds Skin: No rashes, No breakdown Musculoskeletal: No Tenderness to Palpation of Joints or Extremities Neurological: Cranial nerves II-XII grossly intact, leadpipe rigidity Psych/Mental Status: Normal Affect, Appropriate Assessment & Plan Assessment/Plan (1) Acute encephalopathy: (2) Urinary tract infection: PLAN: Plan 1. Acute metabolic encephalopathy secondary to UTI/BPH ? His last UTI was in July and it was a pansensitive Klebsiella ? Does not meet sepsis criteria ? Continue with Rocephin ? On discharge will need to follow-up with urology ? Continue with Flomax, may benefit from finasteride as an outpatient 2. Parkinson's with Parkinson's dementia ? We will continue with his Sinemet as well as his escitalopram ? We will have him evaluated by PT/OT ? We will hold his Seroquel given his altered mental status DVT: Lovenox Charges/Coding Visit Charges Inpatient E&M: 68631 Subs Hosp L2
[2022-08-19] MEDS: Enoxaparin 40 MG/0.4 ML Syringe SC (09:37)
[2022-08-19] MEDS: Ceftriaxone 1 GM/50 ML BAG IV (09:38)
[2022-08-19] MEDS: Ensure Plus High Protein 120 ML LIQUID PO ×3 (09:38→21:32)
[2022-08-19] MEDS: CARBIDOPA/LEVODOPA CR 50/200 Tablet PO ×2 (09:38→21:29)
[2022-08-19] MEDS: Polyethylene Glycol 3350 17 GM PACKET PO (09:38)
[2022-08-19] MEDS: 0.9% Normal Saline 1,000 ML 75 ML IV (13:16)
[2022-08-19] MEDS: traMADol 50 MG Tablet PO (17:10)
[2022-08-19] MEDS: Acetaminophen 325 MG Tablet 650 MG PO (17:50)
[2022-08-19] MEDS: Tamsulosin HCl 0.4 MG Capsule PO (21:29)
[2022-08-19] MEDS: Escitalopram Oxalate 10 MG Tablet PO (21:29)
[2022-08-20] MEDS: 0.9% Normal Saline 1,000 ML 75 ML IV (01:59)
[2022-08-20 02:02] VITALS: BP 135/80; PULSE 76; RESP 18; TEMP 37.1; O2SAT 95
[2022-08-20 05:34] LABS: Absolute Lymphocyte Count 0.84 X10^3/uL (0.83-4.51); Basophil# 0.02 X10^3/uL; Basophil% 0.3 % (0-1); Eosinophils% 1.7 % (0-5); Hematocrit 39.2 % (40-54); Hemoglobin 12.7 g/dL (13.0-16.5); Lymphocyte # 0.84 X10^3/ul (0.83-4.51); Lymphocyte % 14.6 % (19-41); Mean Corp Hgb Conc 32.4 g/dL (32-36); Mean Corpuscular Hgb 30.9 pg (27.0-32.0); Mean Corpuscular Volume 95.4 fL (80-94); Mean Platelet Vol. 10.4 fl (6.2-12.0); Monocyte# 0.69 X10^3/uL; NRBC Flagged by Analyzer 0 % (0-5); Neutrophil # 4.03 X10^3/uL (2.7-7.7); Platelet Count 183 K/mm3 (150-450); RBC Distribution Width CV 13.2 % (11.6-14.6); Red Blood Count 4.11 M/mm3 (4.6-6.2); White Blood Count 5.8 K/mm3 (4.4-11.0)
[2022-08-20] MEDS: traMADol 50 MG Tablet PO (05:37)
[2022-08-20 06:09] LABS: Anion Gap 7 (5-15); BUN 13 mg/dL (7-18); BUN/Creat Ratio 17.7 RATIO (10-20); Calcium,Total 8.4 mg/dL (8.5-10.1); Chloride 105 mmol/L (98-107); Creatinine, Serum 0.74 mg/dL (0.70-1.30); EST Glomerular Filtration Rate 110 mL/min (>60); Est Glom Filt Rate - Afr Amer 133 mL/min (>60); Estimated Creatinine Clearance 54.63 ml/min; Glucose 92 mg/dL (74-106); Potassium 3.5 mmol/L (3.5-5.1); Sodium Level 139 mmol/L (136-145)
--- NOTE | 2022-08-20 07:42 | PN.HOSP_ITS ---
Subjective Subjective DOS: 08/20/2022 CC: Follow-up UTI Pleasantly confused, answers to questions intermittently appropriate, does report still urinating frequently, did not endorse any chest pain or shortness of breath at this time. Eating breakfast and appear to be doing so without difficulty. Did not voice any other complaints at this time Objective Data Objective Data Vital Signs: Vital Signs Temp Pulse Resp BP Pulse Ox O2 Del Method 98.8 F 76 18 135/80 H 95 Room Air 08/20/22 02:02 08/20/22 02:02 08/20/22 02:02 08/20/22 02:02 08/20/22 02:02 08/20/22 02:02 Oxygen Delivery Method Room Air Weight: 61.462 kg Body Mass Index (BMI) 18.8 Intake & Output: Intake and Output for Last 24 Hours 08/18/22 08/19/22 08/20/22 23:59 23:59 23:59 Intake Total 1498.75 / 1498.75 2400 / 2600 1253.75 / 1253.75 Output Total 6100 / 6100 Balance 1498.75 / 1498.75 2400 / 2600 -4846.25 / -4846.25 Medical Nutrition Assessment Dietitian: Malnutrition Criteria Met Start: 08/19/22 12:12 Freq: Status: Active Protocol: Document 08/19/22 12:12 (Rec: 08/19/22 12:12 [id number]) Nutrition Malnutrition Evidence of Malnutrition Exists Yes Malnutrition (moderate): Acute Illness/Injury Evidenced By Weight Loss (Moderate), Physical Changes (Mild) Clinical Problem Acute Disease or Injury Related Malnutrition Etiology acute, moderate malnutrition related to inadequate energy intake w/ recent acute illness /UTI Signs/Symptoms as evidenced by unintentional wt loss of 6.5#/5% <1 month; mild muscle wasting/fat loss evident per physical exam in orbital, clavicle, acromion, and temporal areas; BMI 18.9 Status Active Problem Recommendation Dietitian Recommendations/Changes regular diet; will add 120mL ensure plus high protein 4x/ day given acute malnutrition Lab / Micro Data Result Diagrams: 08/20/22 04:58 08/20/22 04:58 Labs: Laboratory Results - last 24 hr 08/19/22 06:47: Sodium 139, Potassium 3.7, Chloride 107, Carbon Dioxide 25.0, Anion Gap 7, BUN 15, Creatinine 0.90, Estim Creat Clear Calc 60.70, Est GFR (MDRD) Af Amer 105, Est GFR (MDRD) Non-Af 87, BUN/Creatinine Ratio 16.6, Glucose 94, Calcium 8.3 L 08/20/22 04:58: WBC 5.8, RBC 4.11 L, Hgb 12.7 L, Hct 39.2 L, MCV 95.4 H, MCH 30.9, MCHC 32.4, RDW Std Deviation 47.0 H, RDW Coeff of Boni 13.2, Plt Count 183, MPV 10.4, Immature Gran % (Auto) 1.400 H, Neut % (Auto) 70.0, Lymph % (Auto) 14.6 L, [place] % (Auto) 12.0 H, Eos % (Auto) 1.7, Baso % (Auto) 0.3, Absolute Neuts (auto) 4.0, Absolute Lymphs (auto) 0.84, Nucleated RBC % 0 08/20/22 04:58: Sodium 139, Potassium 3.5, Chloride 105, Carbon Dioxide 27.0, Anion Gap 7, BUN 13, Creatinine 0.74, Estim Creat Clear Calc 54.63, Est GFR (MDRD) Af Amer 133, Est GFR (MDRD) Non-Af 110, BUN/Creatinine Ratio 17.7, Glucose 92, Calcium 8.4 L Micro: Microbiology 08/18/22 09:30 Urine, Clean Catch Urine Culture - Preliminary 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 08/18/22 09:20 Nasal Secretion SARS-CoV-2 Antigen (Rapid) - Final Rhythm Strip Rhythm Strip: Sinus Rhythm Rate: 90 Ectopy: None Physical Exam Const alert and no apparent distress Constitutional Narrative: Difficulty with orientation questions and answering questions appropriately HEENT head/scalp atraumatic Eyes EOMs intact bilaterally Neck supple Resp normal respiratory effort Cardio regular rate and regular rhythm GI soft to palpation, non-tender and non-distended Extremity Extremity Narrative: No overt edema appreciated Neuro moves all extremities Neuro Narrative: No overt focal neurological deficits Psych affect normal Assessment & Plan Assessment/Plan (1) Acute encephalopathy: (2) Urinary tract infection: PLAN: Plan 77-year-old male history of Parkinson's disease, COPD, Raynaud's here 08/08 with increased confusion and weakness over 24 to 48 hours. 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, awaiting speciation and sensitivity Blood culture no growth to date May benefit from urology follow-up on discharge Continue Flomax CT brain on admission with mild atrophy and no acute intracranial process Unclear baseline but is presently confused, has been documented that he does h ave dementia associated with Parkinson's however #History of Parkinson's disease with Parkinson's dementia Sinemet and escitalopram continued Seroquel held on admission due to altered mental status PT/OT evaluation?felt he could go to rehab/SNF/TCU on admission #Chronic macrocytic anemia No acute drop Continue to monitor CBC #DVT ppx: Lyle Hilliard MD Charges/Coding Visit Charges Inpatient E&M: 67555 Subs Hosp L2
[2022-08-20] MEDS: Polyethylene Glycol 3350 17 GM PACKET PO (09:48)
[2022-08-20] MEDS: Enoxaparin 40 MG/0.4 ML Syringe SC (09:48)
[2022-08-20] MEDS: Carbidopa/Levodopa 25/100 Tablet PO ×3 (09:49→18:02)
[2022-08-20] MEDS: Ensure Plus High Protein 120 ML LIQUID PO ×4 (09:52→21:17)
[2022-08-20] MEDS: Ceftriaxone 1 GM/50 ML BAG IV (09:52)
[2022-08-20 10:00] VITALS: BP 99/66; PULSE 96; RESP 20; TEMP 36.3; O2SAT 95
[2022-08-20 11:00] VITALS: BP 99/66; PULSE 96; RESP 20; TEMP 36.3; O2SAT 95
[2022-08-20] MEDS: CARBIDOPA/LEVODOPA CR 50/200 Tablet PO ×2 (11:18→21:16)
--- NOTE | 2022-08-20 14:10 | CASEMGMT ---
RODOLFO ROSENTHAL Readmission Note Previous Admission:? 07/25/2022-07/27/2022 Diagnosis:? COPD exac DC Disposition: Home Current Admission? Current Diagnosis:?AMS with UTI Pt presented to ER from home with confusion. Pt has a history of progressive Parkinson's disease with Parkinson's dementia. He recently had a UTI in the beginning of July and was sent home after treatment. Between then and now his said that he had returned essentially back to baseline however over the last 24 to 48 hours she has noticed increased confusion as well as increased weakness. Yesterday he could not feed himself when normally he is fairly independent with all of his activities of daily living. RODOLFO ROSENTHAL in to pt room, pt sitting up in chair. Pt confused and making comments that are not coinciding with the questions. Pt is agreeable to RODOLFO ROSENTHAL calling his . TC to pt Jennifer, she states pt is typically confused at baseline. Discussed therapy notes with her and she states she wants pt to return back home. She states she has a caregiver that she private hires to stay with the patient while she works from 10a-2p. Discussed HHC and she states that she has wanted pt to do this in the past but he does not want to and it makes him angry. She states she does not want HHC to come into the home. States pt uses a FWW, she assists him with showering and all household tasks and cooking. She states pt has had a follow up appt with PCP since last hospitalization and she administers pt meds to him, so he has been taking his meds correctly. Pt denies further homegoing needs. DC Plan: Home
[2022-08-20 14:23] VITALS: BP 103/86; PULSE 90; RESP 18; TEMP 37; O2SAT 97
--- NOTE | 2022-08-20 14:52 | CASEMGMT ---
Addendum entered by Kaylan Moura 08/20/22 15:16: Pt in room. SW discussed HCPOA documents with . stated there are no HCPOA documents but I make all his decisions for him. SAMMY Aviles Original Note: Social Work? SW in to pt room to verify Advanced Directives. Pt confused with UTI and Dementia- unable to answer questions. SW could not get pt on phone, left message requesting call back. It is noted in pt admission questions that is HCPOA. SAMMY Aviles?
[2022-08-20] MEDS: Escitalopram Oxalate 10 MG Tablet PO (21:16)
[2022-08-20] MEDS: Tamsulosin HCl 0.4 MG Capsule PO (21:16)
[2022-08-20 21:19] VITALS: BP 137/92; PULSE 79; RESP 16; TEMP 36.6; O2SAT 95
[2022-08-21 02:43] VITALS: BP 145/86; PULSE 80; RESP 26; TEMP 37.4; O2SAT 95
[2022-08-21] MEDS: Albuterol 2.5 MG/3 ML VIAL.NEB. INHALATION (04:20)
[2022-08-21 04:22] VITALS: PULSE 88; RESP 22
[2022-08-21 05:03] LABS: Absolute Lymphocyte Count 1.19 X10^3/uL (0.83-4.51); Absolute Neutrophil Count 2.7 X10^3/uL (2.0-7.7); Basophil# 0.04 X10^3/uL; Basophil% 0.8 % (0-1); Eosinophil# 0.16 X10^3/uL; Eosinophils% 3.4 % (0-5); Hematocrit 37.2 % (40-54); Hemoglobin 12.1 g/dL (13.0-16.5); Lymphocyte # 1.19 X10^3/ul (0.83-4.51); Mean Corp Hgb Conc 32.5 g/dL (32-36); Mean Corpuscular Hgb 30.6 pg (27.0-32.0); Mean Corpuscular Volume 93.9 fL (80-94); Mean Platelet Vol. 10.2 fl (6.2-12.0); Monocyte% 12.6 % (0-10); NRBC Flagged by Analyzer 0 % (0-5); Neutrophil % 56.7 % (47-70); Platelet Count 198 K/mm3 (150-450); RBC Distribution Width CV 13.1 % (11.6-14.6); RBC Distribution Width SD 45.2 fl (35.1-43.9); Red Blood Count 3.96 M/mm3 (4.6-6.2); White Blood Count 4.8 K/mm3 (4.4-11.0)
[2022-08-21 05:36] LABS: Anion Gap 5 (5-15); BUN 14 mg/dL (7-18); BUN/Creat Ratio 17.7 RATIO (10-20); Calcium,Total 8.4 mg/dL (8.5-10.1); Chloride 106 mmol/L (98-107); Creatinine, Serum 0.79 mg/dL (0.70-1.30); EST Glomerular Filtration Rate 101 mL/min (>60); Est Glom Filt Rate - Afr Amer 122 mL/min (>60); Estimated Creatinine Clearance 54.63 ml/min; Glucose 94 mg/dL (74-106); Potassium 3.6 mmol/L (3.5-5.1); Sodium Level 139 mmol/L (136-145)
[2022-08-21 06:35] VITALS: BP 139/82; PULSE 72; RESP 18; TEMP 37.3; O2SAT 100
[2022-08-21 09:20] VITALS: BP 111/64; PULSE 82; RESP 18; TEMP 37; O2SAT 100
[2022-08-21] MEDS: Polyethylene Glycol 3350 17 GM PACKET PO (09:33)
[2022-08-21] MEDS: Ondansetron 4 MG/2 ML Vial IV (09:33)
[2022-08-21] MEDS: Carbidopa/Levodopa 25/100 Tablet PO ×2 (09:33→12:29)
[2022-08-21] MEDS: Enoxaparin 40 MG/0.4 ML Syringe SC (09:34)
[2022-08-21] MEDS: Ceftriaxone 1 GM/50 ML BAG IV (09:34)
[2022-08-21] MEDS: 0.9% Saline Lock 10 ML Syringe IV (09:34)
[2022-08-21] MEDS: Ensure Plus High Protein 120 ML LIQUID PO ×2 (09:34→14:01)
[2022-08-21 10:41] VITALS: BP 111/64; PULSE 82; RESP 18; TEMP 37; O2SAT 100
[2022-08-21] MEDS: CARBIDOPA/LEVODOPA CR 50/200 Tablet PO (10:48)
--- NOTE | 2022-08-21 14:06 | DCINST_ITS ---
Discharge Instructions Diet Discharge Diet: - (Resume normal diet) Activity Discharge Activity: Return to Normal Activity Follow Up Care Test Results: Test results from this visit will be discussed in further detail at your follow- up appointment, if applicable. Discharge Plan Admission Admit Date/Time: 08/18/22 10:11 Primary Reason for Your Visit: Worsening weakness Attending Provider: Lorri Hilliard Primary Care Provider: Casper Do Consulting Providers: Jeferson Strong Instructions Patient Instructions: Parkinson Disease Day to Day Additional Instructions / Restrictions: ? Please follow-up with urology on discharge Discharge Orders/Prescriptions Prescriptions: New cefuroxime axetil 250 mg tablet 250 mg PO BID 5 Days Qty: 10 0RF Continued carbidopa-levodopa [Sinemet] 25-100 mg Tablet 1 tab PO TIDCM@0900,1300,1800 Rx Instructions: 1 TAB orally carbidopa-levodopa 50-200 mg Tablet Extended Release 1 tab PO BID polyethylene glycol 3350 [Miralax] 17 gram/dose Powder 17 g PO DAILY food supplemt, lactose-reduced Liquid 240 ml PO BID escitalopram oxalate 10 mg tablet 10 mg PO QHS tamsulosin 0.4 mg capsule 0.4 mg PO QHS 30 Days Qty: 30 3RF tramadol 50 mg tablet 50 mg PO Q6H MDD 5 a day PRN (Reason: pain) Qty: 150 0RF Held quetiapine 25 mg tablet 25 mg PO QHS Qty: 30 1RF Hold Instructions: Resume on 08/28/22. No Action (DME) walker Qty: 1 0RF Rx Instructions: Walker with wheels, brakes, and seat (DME) hospital bed Qty: 1 Referrals / Follow Up: Casper Do DO [Primary Care Provider] - Within 1 Week Jerad Oconnell MD [Med Staff - Active Staff] - See Referral Note (Given your BPH (enlarged prostate) and urinary tract infections you would benefit from following with urology on discharge. Information for urology provided, you can call upon discharge to schedule an appointment to establish care) Disposition Disposition (needs filled in before D/C Order can be placed): Home, Self Care
--- NOTE | 2022-08-21 14:15 | DS.PCM_ITS ---
Providers Date of Admission: 08/18/22 Date of Discharge: 08/21/22 Primary Care Physician: Dr. Casper Do DO Reason For Visit: AMS WITH UTI Diagnosis Discharge Diagnosis (1) Acute encephalopathy: Status: Acute Code(s): G93.40 - Encephalopathy, unspecified (2) Urinary tract infection: Status: Acute Code(s): N39.0 - Urinary tract infection, site not specified Plan #Acute metabolic encephalopathy secondary to UTI #History of Parkinson's disease with Parkinson's dementia #Chronic macrocytic anemia Medications at Discharge Home Medications hospital bed #1 ea 02/23/20 walker #1 ea 04/14/20 carbidopa 25 mg-levodopa 100 mg tablet (Sinemet) 1 tab PO TIDCM@0900,1300,1800 parkinsons 02/24/21 carbidopa ER 50 mg-levodopa 200 mg tablet,extended release 1 tab PO BID parkinsons 12/07/21 tamsulosin 0.4 mg capsule 0.4 mg PO QHS BPH 30 days #30 caps 07/17/22 tramadol 50 mg tablet 50 mg PO Q6H PRN pain #150 tabs 07/24/22 escitalopram oxalate 10 mg tablet 10 mg PO QHS DEPRESSION 07/25/22 food supplemt, lactose-reduced 240 ml PO BID SUPPLEMENT 07/25/22 polyethylene glycol 3350 17 gram/dose oral powder (Miralax) 17 g PO DAILY CONSTIPATION 07/25/22 quetiapine 25 mg tablet 25 mg PO QHS Sleep #30 tabs 07/30/22 cefuroxime axetil 250 mg tablet 250 mg PO BID 5 days #10 tabs 08/21/22 Hospital Course Summary of Care Provided Minutes Spent on Discharge: 32 Hospital Course: 77-year-old male history of Parkinson's disease, COPD, Raynaud's here 08/08 with increased confusion and weakness over 24 to 48 hours as well as worsening confu nicki. His Seroquel was held and cultures obtained and he was found to have a Klebsiella UTI. He was given Rocephin and did improve. On day of discharge she denied any complaints, pleasantly confused. Per he requires significant assistance at home which they already have in place. On the day of discharge 08/21 he was doing well, stable, will be discharged on 5 additional days of cefuroxime. Instructions provided for patient as below: *Please take this with you to your next doctors appointment* ?Your quetiapine was held during this admission because of your weakness and c onfusion. Please discuss with your prescribing physician prior to resuming this ? Continue your other home medications ? You were noted to have a urinary tract infection upon admission and you have b een treated with antibiotics, you will need to continue 5 more days of antibiotics. You will be prescribed cefuroxime 250 mg twice daily, this will be sent to your preferred pharmacy on file ? Given your BPH (enlarged prostate) and urinary tract infections you would benefit from following with urology on discharge. Information for urology provided, you can call upon discharge to schedule an appointment to establish care -Please call your primary care provider's office upon discharge to schedule a hospital follow up within 1 week. -For any concerning signs or symptoms please call 911 or proceed to the nearest emergency department Physical Exam Const Constitutional Narrative: Resting comfortably, wakes up and is pleasantly confused HEENT head/scalp atraumatic Eyes EOMs intact bilaterally Neck supple Resp normal respiratory effort Cardio regular rate and regular rhythm GI soft to palpation, non-tender and non-distended Extremity Extremity Narrative: No overt edema appreciated Neuro moves all extremities Neuro Narrative: No overt focal neurological deficits Psych affect normal Medical Records Data Medical Nutrition Assessment Dietitian: Malnutrition Criteria Met Start: 08/19/22 12:12 Freq: Status: Active Protocol: Document 08/19/22 12:12 (Rec: 08/19/22 12:12 [id number]) Nutrition Malnutrition Evidence of Malnutrition Exists Yes Malnutrition (moderate): Acute Illness/Injury Evidenced By Weight Loss (Moderate), Physical Changes (Mild) Clinical Problem Acute Disease or Injury Related Malnutrition Etiology acute, moderate malnutrition related to inadequate energy intake w/ recent acute illness /UTI Signs/Symptoms as evidenced by unintentional wt loss of 6.5#/5% <1 month; mild muscle wasting/fat loss evident per physical exam in orbital, clavicle, acromion, and temporal areas; BMI 18.9 Status Active Problem Recommendation Dietitian Recommendations/Changes regular diet; will add 120mL ensure plus high protein 4x/ day given acute malnutrition Weight / BMI Weight Weight: 61.462 kg Body Mass Index (BMI) 18.8 ABG / Lab / Microbiology Data Result Diagrams: 08/21/22 04:54 08/21/22 04:54 Laboratory: Laboratory Results - last 24 hr 08/21/22 04:54: WBC 4.8, RBC 3.96 L, Hgb 12.1 L, Hct 37.2 L, MCV 93.9, MCH 30.6, MCHC 32.5, RDW Std Deviation 45.2 H, RDW Coeff of Boni 13.1, Plt Count 198, MPV 10.2, Immature Gran % (Auto) 1.500 H, Neut % (Auto) 56.7, Lymph % (Auto) 25.0, [place] % (Auto) 12.6 H, Eos % (Auto) 3.4, Baso % (Auto) 0.8, Absolute Neuts (auto) 2.7, Absolute Lymphs (auto) 1.19, Nucleated RBC % 0 08/21/22 04:54: Sodium 139, Potassium 3.6, Chloride 106, Carbon Dioxide 28.0, Anion Gap 5, BUN 14, Creatinine 0.79, Estim Creat Clear Calc 54.63, Est GFR (MDRD) Af Amer 122, Est GFR (MDRD) Non-Af 101, BUN/Creatinine Ratio 17.7, Glucose 94, Calcium 8.4 L Microbiology: Microbiology 08/18/22 10:15 Blood Culture (Wb) - Right Hand Blood Culture - Preliminary No growth in 48 hours. 08/18/22 10:15 Blood Culture (Wb) - Left Forearm Blood Culture - Preliminary No growth in 48 hours. 08/18/22 09:30 Urine, Clean Catch Urine Culture - Final Klebsiella pneumoniae sp pneum 08/18/22 09:20 Nasal Secretion SARS-CoV-2 Antigen (Rapid) - Final D/C Instructions Discharge Diet: - (Resume normal diet) Meaningful Use Info Meaningful Use Diagnoses (Choose all that apply): None applicable Discharge Plan Admission Admit Date/Time: 08/18/22 10:11 Primary Reason for Your Visit: Worsening weakness Attending Provider: Lorri Hilliard Primary Care Provider: Casper Do Consulting Providers: Jeferson Strong Instructions Patient Instructions: Parkinson Disease Day to Day Additional Instructions / Restrictions: ? Please follow-up with urology on discharge Discharge Orders/Prescriptions Prescriptions: New cefuroxime axetil 250 mg tablet 250 mg PO BID 5 Days Qty: 10 0RF Continued carbidopa-levodopa [Sinemet] 25-100 mg Tablet 1 tab PO TIDCM@0900,1300,1800 Rx Instructions: 1 TAB orally carbidopa-levodopa 50-200 mg Tablet Extended Release 1 tab PO BID polyethylene glycol 3350 [Miralax] 17 gram/dose Powder 17 g PO DAILY food supplemt, lactose-reduced Liquid 240 ml PO BID escitalopram oxalate 10 mg tablet 10 mg PO QHS tamsulosin 0.4 mg capsule 0.4 mg PO QHS 30 Days Qty: 30 3RF tramadol 50 mg tablet 50 mg PO Q6H MDD 5 a day PRN (Reason: pain) Qty: 150 0RF Held quetiapine 25 mg tablet 25 mg PO QHS Qty: 30 1RF Hold Instructions: Resume on 08/28/22. No Action (DME) walker Qty: 1 0RF Rx Instructions: Walker with wheels, brakes, and seat (DME) hospital bed Qty: 1 Referrals / Follow Up: Casper Do DO [Primary Care Provider] - Within 1 Week Jerad Oconnell MD [Med Staff - Active Staff] - See Referral Note (Given your BPH (enlarged prostate) and urinary tract infections you would benefit from following with urology on discharge. Information for urology provided, you can call upon discharge to schedule an appointment to establish care) Disposition Disposition (needs filled in before D/C Order can be placed): Home, Self Care Charges/Coding Visit Charges Inpatient E&M: 35812 Disch Hosp
[2022-08-21 14:25] VITALS: BP 108/59; PULSE 71; RESP 18; TEMP 37; O2SAT 95
== END 2022-08-21 14:38 | disposition home or self-care (01) | DRG 689 ==
LOC: ED 09:56 → MS3 10:55
PROVIDERS: Admitting Provider Family Medicine; Emergency Provider Emergency Medicine; PCP Family Medicine; Visit Provider Internal Medicine
DX: N39.0 Urinary tract infection, site not specified (principal); G93.41 Metabolic encephalopathy; E44.0 Moderate protein-calorie malnutrition; Z68.1 Body mass index [BMI] 19.9 or less, adult; F02.80 Dementia in other diseases classified elsewhere, unspecified severity, without behavioral disturbance, psychotic disturbance, mood disturbance, and anxiety; G20 Parkinson's disease; J44.9 Chronic obstructive pulmonary disease, unspecified; G31.9 Degenerative disease of nervous system, unspecified; I25.10 Atherosclerotic heart disease of native coronary artery without angina pectoris; D53.9 Nutritional anemia, unspecified; Z87.891 Personal history of nicotine dependence; R53.81 Other malaise; B96.1 Klebsiella pneumoniae [K. pneumoniae] as the cause of diseases classified elsewhere
CPT/HCPCS: 36415; 70450; 71045; 80048; 80053; 81001; 84484; 85025; 87040; 87077; 87086; 87088; 87186; 87811; 93005; 94640; 97110; 97116; 97162; 97166; 97535; 99285; J7030; A4216; J2405

== ENCOUNTER 2022-08-30 12:18 | Observation (INO) | payer MEDICARE, OTHER, SELFPAY ==
[2022-08-30] VITALS (9 sets, daily range): BP systolic 98–163; BP diastolic 66–117; PULSE 88–105; RESP 16–20; TEMP 36.4–36.9; O2SAT 91–98; BMI 21.6; BMI 20.3
--- NOTE | 2022-08-30 12:34 | CT_ITS ---
HISTORY: FALL WITH PARKINSON''S . UNABLE TO TIP BACKWARDS DUE TO DISLOCATION OF SHOULDER. KYPHOTIC. TECHNIQUE: Multiple axial images were obtained of the head without intravenous contrast. A radiation dose optimization technique was used for this scan. 255 images. COMPARISON: 08/18/2022. FINDINGS: BRAIN PARENCHYMA: Multiple foci and zones of low attenuation in the bilateral cerebral white matter compatible with chronic small vessel ischemic gliosis. No acute intra-axial hemorrhage identified. CSF SPACES: Generalized volume loss. No midline shift or other significant mass effect. No acute extra-axial hemorrhage seen with limited evaluation of the extra axial spaces due to artifact from suboptimal positioning. OTHER: Intact calvarium. No significant air fluid levels in the paranasal sinuses or mastoid air cells. Unremarkable orbits. Right glenohumeral dislocation noted on the research programmer image. CT/Brain/Head without Contrast IMPRESSION: Artifact from positioning. No definite acute intracranial process identified. Chronic involutional and white matter changes. Right shoulder dislocation. Electronically Signed: Lorena Uriostegui MD at 13:12 EST ,
--- NOTE | 2022-08-30 12:34 | CT_ITS ---
HISTORY: fall/trauma WITH PARKINSON''S. Reformatted series FOR AXIAL DUE TO KYPHOTIC AND DISLOCATED SHOULDER UNABLE TO MOVE. TECHNIQUE: Helically acquired images were obtained of the cervical spine without contrast. 2D reformatted images were reviewed. A radiation dose optimization technique was used for this scan. 708 images. COMPARISON: MRI 06/22/2015. FINDINGS: VERTEBRAE: Vertebral body heights maintained. Posterior elements intact. Segmentation anomaly of C2-3 again noted. ALIGNMENT: Straightening of the cervical lordosis without significant anterior or posterior subluxation. INTERVERTEBRAL DISCS: Degenerative endplate changes with posterior disc bulge osteophyte complexes at multiple levels. Moderate central canal stenosis at C3-4. SOFT TISSUES: No prevertebral soft tissue swelling. OTHER: Anterior dislocation of the right glenohumeral joint on the hall director image. Emphysema in the lung apices. 2 cm right thyroid nodule. CT/Spine Cervical without Contras IMPRESSION: Right shoulder dislocation. No evidence of acute cervical spinal fracture or dislocation. Multilevel degenerative change. 2 cm right thyroid nodule; consider ultrasound follow-up. Electronically Signed: Lorena Uriostegui MD at 13:23 EST ,
--- NOTE | 2022-08-30 12:37 | EX.ED.UPPERE ---
HPI History of Present Illness Chief Complaint: Upper Extremity Injury Narrative Narrative: 77-year-old male presenting after a fall. Patient states he typically walks with a walker. He states he was trying to turn and fell with his right arm out and hit the ground. He believes he hit his hand first and then hit his shoulder. He does not believe he hit his head. He states he was not unconscious. He is denying neck pain but does complain of shoulder pain. Is not able to move his right shoulder secondary to pain. He localizes it to the right shoulder joint. Patient does have history of dementia and Parkinson's disease and is very unstable on his feet. He also has recent admission for altered mental status secondary to UTI. [facility] Medical History Abdominal aortic aneurysm Acute encephalopathy Atherosclerotic heart disease of [place] coronary artery without angina pectoris COPD (chronic obstructive pulmonary disease) Debility Debility Former smoker Parkinson's disease Raynauds disease Home Medications hospital bed #1 ea 02/23/20 [History Last Taken Unknown] walker #1 ea 04/14/20 [Rx Last Taken Unknown] carbidopa 25 mg-levodopa 100 mg tablet (Sinemet) 1 tab PO TIDCM@0900,1300,1800 parkinsons 02/24/21 [History Last Taken 07/25/22] carbidopa ER 50 mg-levodopa 200 mg tablet,extended release 1 tab PO BID parkinsons 12/07/21 [History Last Taken 07/25/22] tamsulosin 0.4 mg capsule 0.4 mg PO QHS BPH 30 days #30 caps 07/17/22 [Rx Last Taken 07/24/22] food supplemt, lactose-reduced 240 ml PO BID SUPPLEMENT 07/25/22 [History Last Taken 07/24/22] polyethylene glycol 3350 17 gram/dose oral powder (Miralax) 17 g PO DAILY CONSTIPATION 07/25/22 [History Last Taken 07/24/22] quetiapine 25 mg tablet 25 mg PO QHS Sleep #30 tabs 07/30/22 [Rx Last Taken Unknown] cefuroxime axetil 250 mg tablet 250 mg PO BID 5 days #10 tabs 08/21/22 [Rx Last Taken Unknown] tramadol 50 mg tablet 50 mg PO Q6H PRN pain #150 tabs 08/22/22 [Rx Last Taken Unknown] escitalopram oxalate 10 mg tablet 10 mg PO QHS DEPRESSION #90 tabs 08/23/22 [Rx Last Taken Unknown] Allergy/AdvReac Type Severity Reaction Status Date / Time pregabalin [From Lyrica] AdvReac hallucinati Verified 08/30/22 12:20 ons Family History Brother Alcoholism Father Heart disease Myocardial infarction Uncle Heart disease Myocardial infarction Grandfather Heart disease Myocardial infarction Mother Heart disease Surgical History History of cataract surgery History of colonoscopy History of left hip hemiarthroplasty History of tonsillectomy Social History household members: spouse Smoking Status: Former smoker how long ago did patient quit smokin alcohol intake: never substance use type: does not use what type of physical activity do you participate in: walking frequency: daily ROS ROS ED Constitutional Constitutional ED: Denies chills or fever(s) Eyes Eyes: Denies change in vision or diplopia ENT ENT ED: Denies rhinorrhea or sore throat Cardiovascular Cardiovascular: Denies chest pain or palpitations Respiratory/Chest Respiratory/Chest: Denies cough or dyspnea Gastrointestinal Gastrointestinal: Denies abdominal pain Genitourinary Genitourinary ED: Denies dysuria or hematuria Musculoskeletal Musculoskeletal: Reports other Details: Right shoulder pain Integumentary Denies abscess or Abrasions Neurologic Neurologic: Denies headache(s) Psychiatric Psychiatric: Denies anxiety or depression EXAM Physical Exam Const Vital Signs: 08/30/22 12:21 Temperature 97.6 F L Temperature Source Temporal Pulse Rate 88 Respiratory Rate 18 Blood Pressure 131/117 H Blood Pressure Mean 121 Pulse Ox 98 Oxygen Delivery Method Room Air Positive well nourished General Appearance ED: NAD HEENT Reports moist mucous membranes normocephalic and atraumatic Eyes EOMs intact bilaterally Chest Wall inspection of chest normal Chest Narrative: Equal symmetric breath sounds or chest wall rise Resp normal respiratory effort and clear to auscultation bilaterally Cardio regular rate and regular rhythm GI non-tender Back/Spine Back/Spine Narrative: No midline cervical spine tenderness, deformity, step-off. Extremity Extremity Narrative: Pain elicited with palpation of the right shoulder. There is a deformity here. No bruising or significant swelling. There is tenderness to the lateral aspect of the collarbone as well. Neuro CN's II-XII intact bilaterally Sensorium / Orientation: alert Psych mental status grossly normal Skin General Skin Exam: Negative for petechiae MDM MDM MDM Narrative Medical decision making narrative: .Patient seen and evaluated on arrival for right shoulder pain after mechanical fall. Patient is a poor informant with history of dementia and does not believe he hit his head. I did check a CT of the brain and cervical spine which were negative for acute findings. X-ray of the right shoulder 2 views on my interpretation shows an acute fracture of the superior and lateral humeral head. There is also an anterior dislocation. Patient given is given 4 mg of morphine for pain. I did obtain lab work as the patient would likely need to be admitted because he walks with a walker. His CBC and BMP are unremarkable. Urinalysis negative for infection. On reevaluation patient is still having pain and was given 4 mg of morphine. I spoke with Dr. Valladares prior to reduction he recommended trying to reduce this in the ER. He does note that it is possible that this could fracture more but it was important to get it reduced and if there is more fracturing he can fix it surgically. He and his were consented for conscious sedation with risk benefits for this. They are amenable to conscious sedation. The appropriate paperwork was filled out. Patient was sedated with propofol and used 100 mg of propofol for sedation. Sedation time is about 7 minutes. Clinically the patient's right shoulder appears to be reduced. Patient tolerated procedure well. Postreduction x-ray of the right shoulder on my interpretation shows adequate alignment. He is placed in a sling discussed. Patient discussed with hospitalist for admission. Impression: 1. Chemical fall 2. Right shoulder fracture 3. Right shoulder dislocation Lab Data Attestation: I reviewed the patient's lab results. Discharge Plan Triage Chief Complaint: Upper Extremity Injury ED Provider: Justin Whittington Dx/Rx/DC Orders Primary Care Provider: Casper Do
[2022-08-30 12:55] LABS: Absolute Lymphocyte Count 1.72 X10^3/uL (0.83-4.51); Absolute Neutrophil Count 4.5 X10^3/uL (2.0-7.7); Basophil# 0.07 X10^3/uL; Eosinophil# 0.24 X10^3/uL; Eosinophils% 3.3 % (0-5); Hematocrit 41.8 % (40-54); Hemoglobin 13.3 g/dL (13.0-16.5); Lymphocyte # 1.72 X10^3/ul (0.83-4.51); Lymphocyte % 23.5 % (19-41); Mean Corp Hgb Conc 31.8 g/dL (32-36); Mean Corpuscular Hgb 30.2 pg (27.0-32.0); Mean Corpuscular Volume 94.8 fL (80-94); Mean Platelet Vol. 10.2 fl (6.2-12.0); Monocyte# 0.51 X10^3/uL; NRBC Flagged by Analyzer 0 % (0-5); Neutrophil # 4.53 X10^3/uL (2.7-7.7); Neutrophil % 61.7 % (47-70); Platelet Count 276 K/mm3 (150-450); RBC Distribution Width CV 13.3 % (11.6-14.6); Red Blood Count 4.41 M/mm3 (4.6-6.2); White Blood Count 7.3 K/mm3 (4.4-11.0)
--- NOTE | 2022-08-30 13:05 | RAD_ITS ---
HISTORY: fall. TECHNIQUE: XR Chest 1 View. COMPARISON: 08/18/2022. FINDINGS: CARDIOMEDIASTINAL BORDERS: Cardiac silhouette within normal limits in size. Mediastinal contour unremarkable. LUNGS: Minimal left basilar atelectasis or scarring. PLEURA: No pleural effusion or pneumothorax seen. OSSEOUS STRUCTURES: Anterior dislocation of the right glenohumeral joint with a fracture fragment of the humeral head. RAD/Chest 1 View (Portable) IMPRESSION: Right shoulder fracture-dislocation. No acute cardiopulmonary process identified. Electronically Signed: Lorena Uriostegui MD at 13:17 EST ,
--- NOTE | 2022-08-30 13:05 | RAD_ITS ---
HISTORY: pain-FALL. TECHNIQUE: XR Shoulder Min 2 Views. COMPARISON: None. FINDINGS: BONES : Fracture of the superolateral humeral head. Mineralization unremarkable. JOINTS: Anterior glenohumeral dislocation. Mild degenerative change of the acromioclavicular joint without subluxation. SOFT TISSUES: Right upper lung clear. RAD/Shoulder min 2 Views IMPRESSION: Anterior dislocation of the right glenohumeral joint with a Hill-Sachs fracture of the humeral head. Electronically Signed: Lorena Uriostegui MD at 13:19 EST ,
[2022-08-30 13:12] LABS: ALB/GLOB Ratio 0.8 RATIO (0.9-2.4); AST(SGOT) 15 U/L (15-37); Alanine Aminotransfer ALT/SGPT 8 U/L (16-61); Albumin, Serum 3.4 g/dL (3.2-5.0); Alkaline Phosphatase 87 U/L (45-117); Anion Gap 7 (5-15); BUN 22 mg/dL (7-18); Calcium,Total 9.2 mg/dL (8.5-10.1); Chloride 106 mmol/L (98-107); Creatinine, Serum 0.96 mg/dL (0.70-1.30); EST Glomerular Filtration Rate 81 mL/min (>60); Est Glom Filt Rate - Afr Amer 98 mL/min (>60); Estimated Creatinine Clearance 57.96 ml/min; Globulin 4.4 g/dL (2.2-4.2); Glucose 108 mg/dL (74-106); Potassium 4.4 mmol/L (3.5-5.1); Protein, Total 7.8 g/dL (6.4-8.2); Sodium Level 141 mmol/L (136-145)
[2022-08-30] MEDS: Ondansetron 4 MG/2 ML Vial IV (13:12)
[2022-08-30] MEDS: Morphine 4 MG/ML Syringe IV (13:12)
[2022-08-30 13:19] LABS: Bacteria 0 SEEN /hpf (None Seen); Mucous, Urine 0 SEEN /hpf (<or=2+); Red Blood Cells-Urine 0 SEEN /hpf (0-5); Squamous Epithelial Cells - UA 0 SEEN /hpf (0-5); White Blood Cells 0 SEEN /hpf (0-5)
[2022-08-30 13:21] LABS: Color, Urine Yellow (Yellow); Glucose, Dipstick Normal (Normal); Ketone-Dipstick 5 mg/dl (Negative); Leukocyte Esterase-Dipstick 25 /ul (Negative); Nitrite-Dipstick Negative (Negative); Occult Blood-Urine Negative /ul (Negative); Protein-Dipstick Negative (Negative); Specific Gravity, Urine 1.015 (1.002-1.030); Urine Bilirubin Dipstick Negative (Negative); Urine Clarity Clear (Clear); Urine Urobilinogen Normal (Normal); Urine pH 6.5 (5.0 - 8.0)
[2022-08-30] MEDS: Propofol 200 MG/20 ML Vial IV BOLUS (13:45)
[2022-08-30] MEDS: fentaNYL 100 MCG/2 ML Ampul 25 MCG IV (13:45)
[2022-08-30] MEDS: 0.9% Normal Saline 1,000 ML 999 ML IV (14:42)
--- NOTE | 2022-08-30 15:09 | ED.RN ---
Pt's does not have a home med list with her. States It hasn't changed since he was here before. States she can call in when she gets home with his prescription bottles.
--- NOTE | 2022-08-30 15:10 | RAD_ITS ---
HISTORY: post reduction. TECHNIQUE: XR Shoulder Min 2 Views. COMPARISON: 13:12. FINDINGS: BONES : Fracture of the humeral head less well-visualized on scapular Y views. JOINTS: Reduction of glenohumeral dislocation. Anatomic alignment. RAD/Shoulder min 2 Views IMPRESSION: Reduction of right glenohumeral joint dislocation into anatomic alignment. Electronically Signed: Lorena Uriostegui MD at 15:26 EST ,
--- NOTE | 2022-08-30 15:22 | HP.PCM.HOS_ITS ---
HPI - General General Date of Admission: 08/30/22 Date of Service: 08/30/22 Chief Complaint: right shoulder pain. HPI Narrative NIKOLAS HANSON, is a 77 M who presents after fall with right shoulder pain. X-ray showed anterior dislocation of the right glenohumeral joint with Hill- Sachs fracture of the humeral head. Patient had it reduced under conscious sedation in the emergency room and patient felt better afterwards and was separately placed in a sling. Dr. Valladares, orthopedics, was contacted and would be able to see the patient in consultation but no plans for any surgery at this point in time. [facility] Medical History Abdominal aortic aneurysm Acute encephalopathy Atherosclerotic heart disease of [place] coronary artery without angina pectoris COPD (chronic obstructive pulmonary disease) Debility Debility Former smoker Parkinson's disease Raynauds disease Home Medications hospital bed #1 ea 02/23/20 [History Last Taken Unknown] walker #1 ea 04/14/20 [Rx Last Taken Unknown] carbidopa 25 mg-levodopa 100 mg tablet (Sinemet) 1 tab PO TIDCM@0900,1300,1800 parkinsons 02/24/21 [History Last Taken 07/25/22] carbidopa ER 50 mg-levodopa 200 mg tablet,extended release 1 tab PO BID parkinsons 12/07/21 [History Last Taken 07/25/22] tamsulosin 0.4 mg capsule 0.4 mg PO QHS BPH 30 days #30 caps 07/17/22 [Rx Last Taken 07/24/22] food supplemt, lactose-reduced 240 ml PO BID SUPPLEMENT 07/25/22 [History Last Taken 07/24/22] polyethylene glycol 3350 17 gram/dose oral powder (Miralax) 17 g PO DAILY CONSTIPATION 07/25/22 [History Last Taken 07/24/22] quetiapine 25 mg tablet 25 mg PO QHS Sleep #30 tabs 07/30/22 [Rx Last Taken Unknown] cefuroxime axetil 250 mg tablet 250 mg PO BID 5 days #10 tabs 08/21/22 [Rx Last Taken Unknown] tramadol 50 mg tablet 50 mg PO Q6H PRN pain #150 tabs 08/22/22 [Rx Last Taken Unknown] escitalopram oxalate 10 mg tablet 10 mg PO QHS DEPRESSION #90 tabs 08/23/22 [Rx Last Taken Unknown] Allergy/AdvReac Type Severity Reaction Status Date / Time pregabalin [From Lyrica] AdvReac hallucinati Verified 08/30/22 12:20 ons Family History Brother Alcoholism Father Heart disease Myocardial infarction Uncle Heart disease Myocardial infarction Grandfather Heart disease Myocardial infarction Mother Heart disease Surgical History History of cataract surgery History of colonoscopy History of left hip hemiarthroplasty History of tonsillectomy Social History household members: spouse Smoking Status: Former smoker how long ago did patient quit smokin alcohol intake: never substance use type: does not use what type of physical activity do you participate in: walking frequency: daily ROS ROS Narrative Groggy as patient was seen after his conscious sedation. Review of Systems ROS Unobtainable: due to encephalopathy Vital Signs Vital Signs Vital Signs: 08/30/22 12:21 08/30/22 14:22 08/30/22 14:23 Temperature 36.4 C L Temperature Source Temporal Pulse Rate 88 98 Pulse Rate [1 (Initial Baseline)] 105 H Pulse Rate [2] 98 Pulse Rate [3] 95 Pulse Rate [4] 94 Respiratory Rate 18 18 Respiratory Rate [1 (Initial Baseline)] 18 Respiratory Rate [2] 17 Respiratory Rate [3] 20 H Respiratory Rate [4] 18 Blood Pressure 131/117 H 163/100 H Blood Pressure [1 (Initial Baseline)] 163/100 H Blood Pressure [2] 128/105 H Blood Pressure [3] 115/82 H Blood Pressure [4] 110/82 H Blood Pressure Mean 121 Pulse Ox 98 95 Oxygen Delivery Method Room Air Nasal Cannula Oxygen Delivery Method [1 (Initial Baseline)] Nasal Cannula Oxygen Delivery Method [2] Nasal Cannula Oxygen Delivery Method [3] Nasal Cannula Oxygen Delivery Method [4] Nasal Cannula Oxygen Flow Rate (L/min) 4 Oxygen Flow Rate (L/min) [1 (Initial Baseline)] 4 Oxygen Flow Rate (L/min) [2] 4 Oxygen Flow Rate (L/min) [3] 4 Oxygen Flow Rate (L/min) [4] 4 08/30/22 14:30 08/30/22 14:35 08/30/22 14:40 Temperature Temperature Source Pulse Rate Pulse Rate [1 (Initial Baseline)] Pulse Rate [2] Pulse Rate [3] Pulse Rate [4] Respiratory Rate Respiratory Rate [1 (Initial Baseline)] Respiratory Rate [2] Respiratory Rate [3] Respiratory Rate [4] Blood Pressure Blood Pressure [1 (Initial Baseline)] Blood Pressure [2] Blood Pressure [3] Blood Pressure [4] Blood Pressure Mean Pulse Ox Oxygen Delivery Method Nasal Cannula Nasal Cannula Nasal Cannula Oxygen Delivery Method [1 (Initial Baseline)] Oxygen Delivery Method [2] Oxygen Delivery Method [3] Oxygen Delivery Method [4] Oxygen Flow Rate (L/min) 4 2 2 Oxygen Flow Rate (L/min) [1 (Initial Baseline)] Oxygen Flow Rate (L/min) [2] Oxygen Flow Rate (L/min) [3] Oxygen Flow Rate (L/min) [4] 08/30/22 13:30 08/30/22 15:07 Temperature 36.7 C Temperature Source Temporal Pulse Rate 93 Pulse Rate [1 (Initial Baseline)] Pulse Rate [2] Pulse Rate [3] Pulse Rate [4] Respiratory Rate 18 Respiratory Rate [1 (Initial Baseline)] Respiratory Rate [2] Respiratory Rate [3] Respiratory Rate [4] Blood Pressure 129/77 H Blood Pressure [1 (Initial Baseline)] Blood Pressure [2] Blood Pressure [3] Blood Pressure [4] Blood Pressure Mean 94 Pulse Ox 96 Oxygen Delivery Method Nasal Cannula Nasal Cannula Oxygen Delivery Method [1 (Initial Baseline)] Oxygen Delivery Method [2] Oxygen Delivery Method [3] Oxygen Delivery Method [4] Oxygen Flow Rate (L/min) 2 Oxygen Flow Rate (L/min) [1 (Initial Baseline)] Oxygen Flow Rate (L/min) [2] Oxygen Flow Rate (L/min) [3] Oxygen Flow Rate (L/min) [4] Weight Weight: 62.596 kg Body Mass Index (BMI) 21.6 Physical Exam Const alert Constitutional Narrative: Pleasant but groggy. Cachectic. HEENT normocephalic Resp normal respiratory effort, no retractions, no use of accessory muscles and clear to auscultation bilaterally Cardio regular rate, regular rhythm, S1 normal heart sound and S2 normal heart sound GI normal to inspection, nondistended, normoactive bowel sounds, soft to palpation, non-tender and non-distended Extremity normal to inspection Results Lab / Micro Data Result Diagrams: 08/30/22 12:45 08/30/22 12:45 Labs: Laboratory Results - last 24 hr 08/30/22 12:45: WBC 7.3, RBC 4.41 L, Hgb 13.3, Hct 41.8, MCV 94.8 H, MCH 30.2, MCHC 31.8 L, RDW Std Deviation 47.0 H, RDW Coeff of Boni 13.3, Plt Count 276, MPV 10.2, Immature Gran % (Auto) 3.500 H, Neut % (Auto) 61.7, Lymph % (Auto) 23.5, [place] % (Auto) 7.0, Eos % (Auto) 3.3, Baso % (Auto) 1.0, Absolute Neuts (auto) 4.5, Absolute Lymphs (auto) 1.72, Nucleated RBC % 0 08/30/22 12:45: Sodium 141, Potassium 4.4, Chloride 106, Carbon Dioxide 28.0, Anion Gap 7, BUN 22 H, Creatinine 0.96, Estim Creat Clear Calc 57.96, Est GFR (MDRD) Af Amer 98, Est GFR (MDRD) Non-Af 81, BUN/Creatinine Ratio 23.0 H, Glucose 108 H, Calcium 9.2, Total Bilirubin 0.70, AST 15, ALT 8 L, Alkaline Phosphatase 87, Total Protein 7.8, Albumin 3.4, Globulin 4.4 H, Albumin/Globulin Ratio 0.8 L 08/30/22 13:10: Urine Color Yellow, Urine Clarity Clear, Urine pH 6.5, Ur Specific [place] 1.015, Urine Protein Negative, Urine Glucose (UA) Normal, Urine Ketones 5 H, Urine Occult Blood Negative, Urine Nitrite Negative, Urine Bilirubin Negative, Urine Urobilinogen Normal, Ur Leukocyte Esterase 25 H, Urine RBC 0 SEEN, Urine WBC 0 SEEN, Ur Squamous Epith Cells 0 SEEN, Urine Bacteria 0 SEEN, Urine Mucus 0 SEEN Radiology Impression Brain CT 08/30/22 12:34 IMPRESSION: Artifact from positioning. No definite acute intracranial process identified. Chronic involutional and white matter changes. Right shoulder dislocation. Electronically Signed: Lorena Uriostegui MD at 13:12 EST , Cervical Spine CT 08/30/22 12:34 IMPRESSION: Right shoulder dislocation. No evidence of acute cervical spinal fracture or dislocation. Multilevel degenerative change. 2 cm right thyroid nodule; consider ultrasound follow-up. Electronically Signed: Lorena Uriostegui MD at 13:23 EST , Chest X-Ray 08/30/22 13:05 IMPRESSION: Right shoulder fracture-dislocation. No acute cardiopulmonary process identified. Electronically Signed: Lorena Uriostegui MD at 13:17 EST Reading Location ID and State: [facility] / [place] Tel , Service support , Shoulder X-Ray 08/30/22 13:05 IMPRESSION: Anterior dislocation of the right glenohumeral joint with a Hill-Sachs fracture of the humeral head. Electronically Signed: Lorena Uriostegui MD at 13:19 EST , Assessment & Plan Assessment/Plan (1) Recurrent dislocation, right shoulder: PLAN: Status post fall. Reduced in the emergency room Plan * Pain control * Nonweightbearing right upper extremity * Consult orthopedics for further recommendations. (2) Debility: PLAN: Patient was using a walker at baseline but given his right shoulder dislocation and humeral head fracture, patient will be nonweightbearing in the right upper extremity. Patient did have home health care at home but patient is can be profoundly limited given his fracture. PT OT evaluate and treat PLAN: Plan Chronic conditions * Parkinson's disease: Continue with Sinemet * BPH: Continue Flomax VTE prophylaxis with enoxaparin CODE STATUS: Addressed with the patient's patient is full Disposition: Patient is observation status as patient will just require routine pain medications and therapy evaluations. Now if patient does require surgery then that could be changed at a later point but no plans for any surgery at this time Charges/Coding Visit Charges OBSV E&M: 02528 Initial observation care L2
[2022-08-30] MEDS: Carbidopa/Levodopa 25/100 Tablet PO (17:38)
[2022-08-30] MEDS: oxyCODONE 5 MG Tablet PO (17:38)
[2022-08-30] MEDS: Tamsulosin HCl 0.4 MG Capsule PO (21:07)
[2022-08-30] MEDS: Escitalopram Oxalate 10 MG Tablet PO (21:08)
[2022-08-30] MEDS: QUEtiapine 25 MG Tablet PO (21:08)
[2022-08-30] MEDS: CARBIDOPA/LEVODOPA CR 50/200 Tablet PO (21:08)
[2022-08-30] MEDS: Acetaminophen 500 MG Tablet 1000 MG PO (21:08)
[2022-08-31 03:00] VITALS: BP 102/69; PULSE 79; RESP 18; TEMP 37; O2SAT 92
[2022-08-31] MEDS: Acetaminophen 500 MG Tablet 1000 MG PO ×2 (07:11→14:30)
--- NOTE | 2022-08-31 07:37 | PN.HOSP_ITS ---
Subjective Subjective Feels okay. Objective Data Objective Data Vital Signs: Vital Signs Temp Pulse Resp BP Pulse Ox O2 Del Method O2 Flow Rate 37.0 C 79 18 102/69 92 Room Air 2 08/31/22 03:00 08/31/22 03:00 08/31/22 03:00 08/31/22 03:00 08/31/22 03:00 08/31/22 03:00 08/30/22 15:07 Oxygen Flow Rate (L/min) [4] 4 Oxygen Flow Rate (L/min) [3] 4 Oxygen Flow Rate (L/min) [2] 4 Oxygen Flow Rate (L/min) [1 ( 4 Initial Baseline)] Oxygen Flow Rate (L/min) 2 Oxygen Delivery Method [4] Nasal Cannula Oxygen Delivery Method [3] Nasal Cannula Oxygen Delivery Method [2] Nasal Cannula Oxygen Delivery Method [1 ( Nasal Cannula Initial Baseline)] Oxygen Delivery Method Room Air Weight: 58.967 kg Body Mass Index (BMI) 20.3 Intake & Output: Intake and Output for Last 24 Hours 08/29/22 08/30/22 08/31/22 23:59 23:59 23:59 Intake Total 1000 / 1120 240 / 240 Balance 1000 / 1120 240 / 240 Lab / Micro Data Result Diagrams: 08/30/22 12:45 08/30/22 12:45 Labs: Laboratory Results - last 24 hr 08/30/22 12:45: WBC 7.3, RBC 4.41 L, Hgb 13.3, Hct 41.8, MCV 94.8 H, MCH 30.2, MCHC 31.8 L, RDW Std Deviation 47.0 H, RDW Coeff of Boni 13.3, Plt Count 276, MPV 10.2, Immature Gran % (Auto) 3.500 H, Neut % (Auto) 61.7, Lymph % (Auto) 23.5, [place] % (Auto) 7.0, Eos % (Auto) 3.3, Baso % (Auto) 1.0, Absolute Neuts (auto) 4.5, Absolute Lymphs (auto) 1.72, Nucleated RBC % 0 08/30/22 12:45: Sodium 141, Potassium 4.4, Chloride 106, Carbon Dioxide 28.0, Anion Gap 7, BUN 22 H, Creatinine 0.96, Estim Creat Clear Calc 57.96, Est GFR (MDRD) Af Amer 98, Est GFR (MDRD) Non-Af 81, BUN/Creatinine Ratio 23.0 H, Glucose 108 H, Calcium 9.2, Total Bilirubin 0.70, AST 15, ALT 8 L, Alkaline Phosphatase 87, Total Protein 7.8, Albumin 3.4, Globulin 4.4 H, Albumin/Globulin Ratio 0.8 L 08/30/22 13:10: Urine Color Yellow, Urine Clarity Clear, Urine pH 6.5, Ur Specific [place] 1.015, Urine Protein Negative, Urine Glucose (UA) Normal, Urine Ketones 5 H, Urine Occult Blood Negative, Urine Nitrite Negative, Urine Bilirubin Negative, Urine Urobilinogen Normal, Ur Leukocyte Esterase 25 H, Urine RBC 0 SEEN, Urine WBC 0 SEEN, Ur Squamous Epith Cells 0 SEEN, Urine Bacteria 0 SEEN, Urine Mucus 0 SEEN Radiography Diagnostic Testing: Radiology Impression Brain CT 08/30/22 12:34 IMPRESSION: Artifact from positioning. No definite acute intracranial process identified. Chronic involutional and white matter changes. Right shoulder dislocation. Electronically Signed: Lorena Uriostegui MD at 13:12 EST , Cervical Spine CT 08/30/22 12:34 IMPRESSION: Right shoulder dislocation. No evidence of acute cervical spinal fracture or dislocation. Multilevel degenerative change. 2 cm right thyroid nodule; consider ultrasound follow-up. Electronically Signed: Lorena Uriostegui MD at 13:23 EST , Chest X-Ray 08/30/22 13:05 IMPRESSION: Right shoulder fracture-dislocation. No acute cardiopulmonary process identified. Electronically Signed: Lorena Uriostegui MD at 13:17 EST , Shoulder X-Ray 08/30/22 13:05 IMPRESSION: Anterior dislocation of the right glenohumeral joint with a Hill-Sachs fracture of the humeral head. Electronically Signed: Lorena Uriostegui MD at 13:19 EST , Shoulder X-Ray 08/30/22 15:10 IMPRESSION: Reduction of right glenohumeral joint dislocation into anatomic alignment. Electronically Signed: Lorena Uriostegui MD at 15:26 EST , Physical Exam Narrative In bed. No acute distress. Right arm in sling. Assessment & Plan Assessment/Plan (1) Recurrent dislocation, right shoulder: PLAN: Status post fall. Reduced in the emergency room Plan * Pain control * Nonweightbearing right upper extremity * CT ordered to evaluate for fracture. No plans for any surgery but may implicates when the patient can start having weightbearing status of his right upper extremity. (2) Debility: PLAN: Patient was using a walker at baseline but given his right shoulder dislocation and humeral head fracture, patient will be nonweightbearing in the right upper extremity. Patient did have home health care at home but patient is can be profoundly limited given his fracture. PT OT evaluate and treat PLAN: Plan Chronic conditions * Parkinson's disease: Continue with Sinemet * BPH: Continue Flomax VTE prophylaxis with enoxaparin CODE STATUS: Addressed with the patient's patient is full Disposition: Patient is observation status as patient will just require routine pain medications and therapy evaluations. Now if patient does require surgery then that could be changed at a later point but no plans for any surgery at this time Charges/Coding Visit Charges OBSV E&M: 53851 Subsequent observation care L1
[2022-08-31 07:43] LABS: Vitamin D,25 Hydroxy 16.9 ng/mL
[2022-08-31 08:02] VITALS: BP 115/66; PULSE 77; RESP 18; TEMP 36.8; O2SAT 98
[2022-08-31] MEDS: Carbidopa/Levodopa 25/100 Tablet PO ×2 (08:04→14:30)
[2022-08-31] MEDS: Enoxaparin 40 MG/0.4 ML Syringe SC (08:04)
--- NOTE | 2022-08-31 10:40 | CONS.ORTHO ---
HPI Consult Data Date of Consult: 08/31/22 HPI Narrative Reason for Consultation: Right shoulder pain HPI Narrative: NIKOLAS HANSON, is a 77 M Parkinson's disease and associated dementia presents today with right shoulder pain. Patient's is at the bedside and provides much of the history. Patient is walker dependent and his states that he falls without the walker frequently. He also falls with a walker at times. He is attempted to use a regular walker however therapy saw him today and notes that the mechanics of lifting the walker are difficult for his Parkinson symptoms additionally, his notes that with a Rollator walker sometimes the wheels allow the walker to get too far in front of him. Yesterday patient had a fall while attempting to ambulate without his walker and had increasing shoulder pain. He presented to the emergency department where he was noted to have a anterior dislocation with an associated Hill-Sachs lesion. Close reduction was performed and patient is comfortable with a sling today. He is able to move his arm in order to shake the hand and cooperate with a mild examination. He reports mild pain at this time. He is sitting up in a chair and answers all my questions appropriately. Denies any associated numbness and tingling. His states he has not had any previous dislocations despite his initial H&P stating recurrent dislocations as a diagnosis. [facility] Medical History Abdominal aortic aneurysm Acute encephalopathy Atherosclerotic heart disease of [place] coronary artery without angina pectoris COPD (chronic obstructive pulmonary disease) Debility Debility Dementia Former smoker Parkinson's disease Raynauds disease Home Medications hospital bed #1 ea 02/23/20 [History Last Taken Unknown] walker #1 ea 04/14/20 [Rx Last Taken Unknown] carbidopa 25 mg-levodopa 100 mg tablet (Sinemet) 1 tab PO TIDCM@0900,1300,1800 parkinsons 02/24/21 [History Last Taken 07/25/22] carbidopa ER 50 mg-levodopa 200 mg tablet,extended release 1 tab PO BID parkinsons 12/07/21 [History Last Taken 07/25/22] tamsulosin 0.4 mg capsule 0.4 mg PO QHS BPH 30 days #30 caps 07/17/22 [Rx Last Taken 07/24/22] food supplemt, lactose-reduced 240 ml PO BID SUPPLEMENT 07/25/22 [History Last Taken 07/24/22] polyethylene glycol 3350 17 gram/dose oral powder (Miralax) 17 g PO DAILY CONSTIPATION 07/25/22 [History Last Taken 07/24/22] quetiapine 25 mg tablet 25 mg PO QHS Sleep #30 tabs 07/30/22 [Rx Last Taken Unknown] cefuroxime axetil 250 mg tablet 250 mg PO BID 5 days #10 tabs 08/21/22 [Rx Last Taken Unknown] tramadol 50 mg tablet 50 mg PO Q6H PRN pain #150 tabs 08/22/22 [Rx Last Taken Unknown] escitalopram oxalate 10 mg tablet 10 mg PO QHS DEPRESSION #90 tabs 08/23/22 [Rx Last Taken Unknown] Allergy/AdvReac Type Severity Reaction Status Date / Time pregabalin [From Lyrica] AdvReac hallucinati Verified 08/30/22 12:20 ons Family History Brother Alcoholism Father Heart disease Myocardial infarction Uncle Heart disease Myocardial infarction Grandfather Heart disease Myocardial infarction Mother Heart disease Surgical History History of cataract surgery History of colonoscopy History of left hip hemiarthroplasty History of tonsillectomy Social History household members: spouse Smoking Status: Former smoker how long ago did patient quit smokin alcohol intake: never substance use type: does not use what type of physical activity do you participate in: walking frequency: daily ROS Constitutional Constitutional: Reports systems reviewed and no addt'l complaints, except as documented Eyes Eyes: Reports systems reviewed and no addt'l complaints, except as documented ENT HEENT: Reports systems reviewed and no addt'l complaints, except as documented Cardiovascular Cardiovascular: Reports systems reviewed and no addt'l complaints, except as documented Respiratory/Chest Respiratory/Chest: Reports systems reviewed and no addt'l complaints, except as documented Gastrointestinal Gastrointestinal: Reports systems reviewed and no addt'l complaints, except as documented Genitourinary Genitourinary: Reports systems reviewed and no addt'l complaints, except as documented Musculoskeletal Musculoskeletal: Reports systems reviewed and no addt'l complaints, except as documented Integumentary Integumentary: Reports systems reviewed and no addt'l complaints, except as documented Neurologic Neurologic: Reports systems reviewed and no addt'l complaints, except as documented Psychiatric Psychiatric: Reports systems reviewed and no addt'l complaints, except as documented Endocrine Endocrinology: Reports systems reviewed and no addt'l complaints, except as documented Vital Signs Vital Signs Vital Signs: 08/30/22 12:21 08/30/22 14:22 08/30/22 14:23 Temperature 97.6 F L Temperature Source Temporal Pulse Rate 88 98 Pulse Rate [1 (Initial Baseline)] 105 H Pulse Rate [2] 98 Pulse Rate [3] 95 Pulse Rate [4] 94 Pulse Strength Respiratory Rate 18 18 Respiratory Rate [1 (Initial Baseline)] 18 Respiratory Rate [2] 17 Respiratory Rate [3] 20 H Respiratory Rate [4] 18 Respiratory Effort Respiratory Depth Respiratory Pattern Blood Pressure 131/117 H 163/100 H Blood Pressure [1 (Initial Baseline)] 163/100 H Blood Pressure [2] 128/105 H Blood Pressure [3] 115/82 H Blood Pressure [4] 110/82 H Blood Pressure Mean 121 Blood Pressure Source Blood Pressure Position Blood Pressure Location Pulse Ox 98 95 Oxygen Delivery Method Room Air Nasal Cannula Oxygen Delivery Method [1 (Initial Baseline)] Nasal Cannula Oxygen Delivery Method [2] Nasal Cannula Oxygen Delivery Method [3] Nasal Cannula Oxygen Delivery Method [4] Nasal Cannula Oxygen Flow Rate (L/min) 4 Oxygen Flow Rate (L/min) [1 (Initial Baseline)] 4 Oxygen Flow Rate (L/min) [2] 4 Oxygen Flow Rate (L/min) [3] 4 Oxygen Flow Rate (L/min) [4] 4 08/30/22 14:30 08/30/22 14:35 08/30/22 14:40 Temperature Temperature Source Pulse Rate Pulse Rate [1 (Initial Baseline)] Pulse Rate [2] Pulse Rate [3] Pulse Rate [4] Pulse Strength Respiratory Rate Respiratory Rate [1 (Initial Baseline)] Respiratory Rate [2] Respiratory Rate [3] Respiratory Rate [4] Respiratory Effort Respiratory Depth Respiratory Pattern Blood Pressure Blood Pressure [1 (Initial Baseline)] Blood Pressure [2] Blood Pressure [3] Blood Pressure [4] Blood Pressure Mean Blood Pressure Source Blood Pressure Position Blood Pressure Location Pulse Ox Oxygen Delivery Method Nasal Cannula Nasal Cannula Nasal Cannula Oxygen Delivery Method [1 (Initial Baseline)] Oxygen Delivery Method [2] Oxygen Delivery Method [3] Oxygen Delivery Method [4] Oxygen Flow Rate (L/min) 4 2 2 Oxygen Flow Rate (L/min) [1 (Initial Baseline)] Oxygen Flow Rate (L/min) [2] Oxygen Flow Rate (L/min) [3] Oxygen Flow Rate (L/min) [4] 08/30/22 13:30 08/30/22 15:07 08/30/22 16:24 Temperature 98.0 F Temperature Source Temporal Pulse Rate 93 Pulse Rate [1 (Initial Baseline)] Pulse Rate [2] Pulse Rate [3] Pulse Rate [4] Pulse Strength Respiratory Rate 18 Respiratory Rate [1 (Initial Baseline)] Respiratory Rate [2] Respiratory Rate [3] Respiratory Rate [4] Respiratory Effort Normal Respiratory Depth Normal Respiratory Pattern Normal Blood Pressure 129/77 H Blood Pressure [1 (Initial Baseline)] Blood Pressure [2] Blood Pressure [3] Blood Pressure [4] Blood Pressure Mean 94 Blood Pressure Source Blood Pressure Position Blood Pressure Location Pulse Ox 96 Oxygen Delivery Method Nasal Cannula Nasal Cannula Room Air Oxygen Delivery Method [1 (Initial Baseline)] Oxygen Delivery Method [2] Oxygen Delivery Method [3] Oxygen Delivery Method [4] Oxygen Flow Rate (L/min) 2 Oxygen Flow Rate (L/min) [1 (Initial Baseline)] Oxygen Flow Rate (L/min) [2] Oxygen Flow Rate (L/min) [3] Oxygen Flow Rate (L/min) [4] 08/30/22 16:31 08/30/22 16:31 08/30/22 21:03 Temperature 98.4 F 98.1 F Temperature Source Oral Oral Pulse Rate 95 95 Pulse Rate [1 (Initial Baseline)] Pulse Rate [2] Pulse Rate [3] Pulse Rate [4] Pulse Strength Normal (2+) Respiratory Rate 16 18 Respiratory Rate [1 (Initial Baseline)] Respiratory Rate [2] Respiratory Rate [3] Respiratory Rate [4] Respiratory Effort Respiratory Depth Respiratory Pattern Blood Pressure 116/70 133/78 H Blood Pressure [1 (Initial Baseline)] Blood Pressure [2] Blood Pressure [3] Blood Pressure [4] Blood Pressure Mean 85 96 Blood Pressure Source Monitor Monitor Blood Pressure Position Semi-Fowlers Semi-Fowlers Blood Pressure Location Left Arm Left Forearm Pulse Ox 92 91 Oxygen Delivery Method Room Air Room Air Oxygen Delivery Method [1 (Initial Baseline)] Oxygen Delivery Method [2] Oxygen Delivery Method [3] Oxygen Delivery Method [4] Oxygen Flow Rate (L/min) Oxygen Flow Rate (L/min) [1 (Initial Baseline)] Oxygen Flow Rate (L/min) [2] Oxygen Flow Rate (L/min) [3] Oxygen Flow Rate (L/min) [4] 08/31/22 03:00 08/31/22 08:02 Temperature 98.6 F 98.3 F Temperature Source Axillary Temporal Pulse Rate 79 77 Pulse Rate [1 (Initial Baseline)] Pulse Rate [2] Pulse Rate [3] Pulse Rate [4] Pulse Strength Respiratory Rate 18 18 Respiratory Rate [1 (Initial Baseline)] Respiratory Rate [2] Respiratory Rate [3] Respiratory Rate [4] Respiratory Effort Respiratory Depth Respiratory Pattern Blood Pressure 102/69 115/66 Blood Pressure [1 (Initial Baseline)] Blood Pressure [2] Blood Pressure [3] Blood Pressure [4] Blood Pressure Mean 80 82 Blood Pressure Source Monitor Monitor Blood Pressure Position Semi-Fowlers Semi-Fowlers Blood Pressure Location Left Forearm Left Arm Pulse Ox 92 98 Oxygen Delivery Method Room Air Room Air Oxygen Delivery Method [1 (Initial Baseline)] Oxygen Delivery Method [2] Oxygen Delivery Method [3] Oxygen Delivery Method [4] Oxygen Flow Rate (L/min) Oxygen Flow Rate (L/min) [1 (Initial Baseline)] Oxygen Flow Rate (L/min) [2] Oxygen Flow Rate (L/min) [3] Oxygen Flow Rate (L/min) [4] Weight Weight: 130 lb Body Mass Index (BMI) 20.3 Physical Exam Const alert and no apparent distress General Appearance: cooperative HEENT normocephalic and head/scalp atraumatic Eyes PERRL Neck no JVD Resp normal respiratory effort Cardio Cardio Narrative: Regular pulse rate GI non-tender Extremity Extremity Narrative: Right upper extremity: Mild swelling of the shoulder. No pain with passive internal extra rotation. Patient able to reach out and shake my hand. Avoid any forward elevation and excessive external rotation secondary to patient's instability. Patient able to give thumbs up, okay sign and cross fingers. Sensations intact light touch axillary/R/M/U distally. 2+ radial pulse. No gross deformity of the shoulder. Skin no wounds Psych affect normal Medical Records Data Attestation: I reviewed the patient's medical records Lab / Micro Data Attestation: I reviewed the patient's lab results. Result Diagrams: 08/30/22 12:45 08/30/22 12:45 Labs: Laboratory Results - last 24 hr 08/30/22 12:45: WBC 7.3, RBC 4.41 L, Hgb 13.3, Hct 41.8, MCV 94.8 H, MCH 30.2, MCHC 31.8 L, RDW Std Deviation 47.0 H, RDW Coeff of [place] 13.3, Plt Count 276, MPV 10.2, Immature Gran % (Auto) 3.500 H, Neut % (Auto) 61.7, Lymph % (Auto) 23.5, [place] % (Auto) 7.0, Eos % (Auto) 3.3, Baso % (Auto) 1.0, Absolute Neuts (auto) 4.5, Absolute Lymphs (auto) 1.72, Nucleated RBC % 0 08/30/22 12:45: Sodium 141, Potassium 4.4, Chloride 106, Carbon Dioxide 28.0, Anion Gap 7, BUN 22 H, Creatinine 0.96, Estim Creat Clear Calc 57.96, Est GFR (MDRD) Af Amer 98, Est GFR (MDRD) Non-Af 81, BUN/Creatinine Ratio 23.0 H, Glucose 108 H, Calcium 9.2, Total Bilirubin 0.70, AST 15, ALT 8 L, Alkaline Phosphatase 87, Total Protein 7.8, Albumin 3.4, Globulin 4.4 H, Albumin/Globulin Ratio 0.8 L 08/30/22 13:10: Urine Color Yellow, Urine Clarity Clear, Urine pH 6.5, Ur Specific [place] 1.015, Urine Protein Negative, Urine Glucose (UA) Normal, Urine Ketones 5 H, Urine Occult Blood Negative, Urine Nitrite Negative, Urine Bilirubin Negative, Urine Urobilinogen Normal, Ur Leukocyte Esterase 25 H, Urine RBC 0 SEEN, Urine WBC 0 SEEN, Ur Squamous Epith Cells 0 SEEN, Urine Bacteria 0 SEEN, Urine Mucus 0 SEEN 08/31/22 06:25: Vitamin D 25-Hydroxy 16.[address] 08/30/22 12:34 IMPRESSION: Artifact from positioning. No definite acute intracranial process identified. Chronic involutional and white matter changes. Right shoulder dislocation. Electronically Signed: Lorena Uriostegui MD at 13:12 EST , Cervical Spine CT 08/30/22 12:34 IMPRESSION: Right shoulder dislocation. No evidence of acute cervical spinal fracture or dislocation. Multilevel degenerative change. 2 cm right thyroid nodule; consider ultrasound follow-up. Electronically Signed: Lorena Uriostegui MD at 13:23 EST , Chest X-Ray 08/30/22 13:05 IMPRESSION: Right shoulder fracture-dislocation. No acute cardiopulmonary process identified. Electronically Signed: Lorena Uriostegui MD at 13:17 EST , Shoulder X-Ray 08/30/22 13:05 IMPRESSION: Anterior dislocation of the right glenohumeral joint with a Hill-Sachs fracture of the humeral head. Electronically Signed: Lorena Uriostegui MD at 13:19 EST , Shoulder X-Ray 08/30/22 15:10 IMPRESSION: Reduction of right glenohumeral joint dislocation into anatomic alignment. Electronically Signed: Lorena Uriostegui MD at 15:26 EST , All imaging was reviewed as well as previous chest x-ray from earlier this month when patient was admitted for a UTI which showed superior migration of the humeral head and otherwise well reduced glenohumeral joint consistent with some rotator cuff dysfunction chronically. New images show a anterior dislocation of the shoulder glenohumeral joint with a small bony clarissa posteriorly consistent with Hill-Sachs lesion or avulsion. Postreduction films show adequate reduction. Assessment & Plan Assessment/Plan (1) Parkinson's disease dementia: QUALIFIERS: Dementia behavioral disturbance: with behavioral disturbance Qualified Code(s): G20 - Parkinson's disease; F02.81 - Dementia in other diseases classified elsewhere with behavioral disturbance PLAN: Per primary service. Patient is going has significant difficulty using a regular walker as he will be nonweightbearing with his right upper extremity until appropriately rehab. I have spoken with physical therapy they will attempt to use a hemiwalker to see if he can be stable. Will likely require snf upon discharge from the hospital until he can be adequately rehabbed. Per therapy he was a 1-2 person assist today. (2) Parkinson's disease: PLAN: Per primary service. Patient is going has significant difficulty using a regular walker as he will be nonweightbearing with his right upper extremity until appropriately rehab. I have spoken with physical therapy they will attempt to use a hemiwalker to see if he can be stable. Will likely require snf upon discharge from the hospital until he can be adequately rehabbed. Per therapy he was a 1-2 person assist today. (3) Dislocation of right shoulder joint: PLAN: Natural history of the disease process and treatment options were discussed the patient. There were also discussed with the patient's who is at bedside. She appears to be a primary caregiver for him. At this time patient does have a presumed Hill-Sachs lesion with associated bony avulsion. I would like to get a CT scan to evaluate any further bony involvement. This will help determine extent of instability and direct care and determining overall predictability of instability related to size and extent of bony lesions related to the dislocation. I will return tomorrow to review the CT scan results with the family and help direct physical therapy and further care. Depending on bony lesions or any additional fractures that are identified we will attempt to rehab the patient for instability so that he can return to using his walker. However my concerns are that if the bony lesions are of extensible size he may require greater care and rehabilitation and a longer time of rehabilitation prior to beginning weightbearing with a walker. At this time he should work on ambulation with physical therapy, placement for discharge and remain nonweightbearing and in a sling for the right upper extremity. He may do passive range of motion exercises with physical therapy avoiding forward elevation and external rotation or abduction and external rotation which will put him at the greatest risk of instability. [facility] Office:
[2022-08-31] MEDS: CARBIDOPA/LEVODOPA CR 50/200 Tablet PO (10:48)
--- NOTE | 2022-08-31 10:58 | CT_ITS ---
STUDY: CT RIGHT SHOULDER REASON FOR EXAM: Male, 77 years old. r shoulder pain RADIATION DOSAGE (If Supplied By Facility): CTDIvol = ( 24.58 ) mGy, DLP = ( 536.02 ) mGycm TECHNIQUE: The patient was scanned in a multi detector CT scanner. High resolution transaxial imaging was performed without the administration of intravenous contrast material. Sagittal and coronal images were reconstructed. Individualized dose optimization techniques were used for this CT. COMPARISON: X-ray of the right shoulder dated August 30, 2022 FINDINGS: An acute but mild impaction fracture of the posterior lateral aspect of the humeral head is present with mild buckling and cortical irregularity minimal displacement. The fracture extends through the greater tuberosity. No significant joint effusion is present. No additional fractures are seen. Normal glenohumeral articulation. Normal glenoid rim, neck and visualized scapula. Normal humeral neck. Normal coracoid process. Normal visualized lateral clavicle. Normal acromioclavicular articulation. There is a Type II morphology (curved), with a neutral orientation. Normal visualized muscles and soft tissue structures. Significant cystic emphysematous changes are visualized in the right lung. CT/Extremity Upper without Contra IMPRESSION: 1. Mild acute Hill-Sachs impaction fracture of the posterior lateral aspect of the humeral head with extension through the greater tuberosity. Electronically Signed: aDle Albert MD at 12:04 [facility] ,
--- NOTE | 2022-08-31 11:04 | CASEMGMT ---
Addendum entered by Kaylan Moura 08/31/22 11:39: Rehab unit unable to accept pt. SW in to inform and pt. Next choice would be [facility] TCU according to . SW discussed with Dora at TCU. Dora able to accept pt on TCU. DR. Rhoades updated. Will await news to see if pt is medically ready to discharge today. PLAN: TCU, when medically ready SAMMY Aviles Original Note: Social Work? SW in to meet with pt following update from and therapy team that pt will need placement at nursing facility or rehab Unit. SW introduced self and role at the hospital. Pt present and both agreeable to discussing discharge planning. A list of Rehab Units and SNF providers including quality and resource use data and consistent with the patient?s preferred geographic region, medical needs, and insurance network were provided from the [employer] Guide. Pt and reviewed list. stated We want rehab. [facility] rehab would be our first choice. SW notified Dora at of pt choice. Dora to talk to Dr. Dunaway to discuss ability to approve pt for Rehab unit. Dora informed Rehab Unit would not be able to admit pt until Saturday if pt is accepted. PLAN: [facility] Rehab, pending acceptance SAMMY Aviles?
--- NOTE | 2022-08-31 11:10 | CASEMGMT ---
Social Work? SW in to pt room to verify Advanced Directives. Pt does NOT have HCPOA/LW documents. Pt spouse,?Sanya, is decision maker. Pt has Parkinson's and Dementia. ?? SAMMY Aviles?
--- NOTE | 2022-08-31 11:11 | NURSING ---
to CT scan per bed
[2022-08-31] MEDS: oxyCODONE 5 MG Tablet PO (11:15)
--- NOTE | 2022-08-31 14:14 | PCM.TXEXTCAR ---
Diet Diet Order/Speech Therapy: 08/30/22 16:13 Diet: Regular - General Food consistency:: Regular Liquid Consistency:: Regular/Thin Diet Comments: fortified foods as able at meals Wound(s) right knee: Wound Type: Abrasion left knee: Wound Type: Abrasion Therapies Weight Bearing: Non weight bearing (passive range of motion, dislocation protocol. sling on right uppper extremity. ) Extremity Affected:: Right Lower Physical Therapy: Eval and Treat Occupational Therapy: Eval and Treat Problem/Diagnosis (1) Recurrent dislocation, right shoulder: Status: Acute Code(s): M24.411 - Recurrent dislocation, right shoulder Plan: Status post fall. Reduced in the emergency room Plan Pain control Nonweightbearing right upper extremity CT ordered to evaluate for fracture. No plans for any surgery but may implicates when the patient can start having weightbearing status of his right upper extremity. (2) Debility: Status: Acute Code(s): R53.81 - Other malaise Plan: Patient was using a walker at baseline but given his right shoulder dislocation and humeral head fracture, patient will be nonweightbearing in the right upper extremity. Patient did have home health care at home but patient is can be profoundly limited given his fracture. PT OT evaluate and treat Plan Chronic conditions Parkinson's disease: Continue with Sinemet BPH: Continue Flomax VTE prophylaxis with enoxaparin CODE STATUS: Addressed with the patient's patient is full Disposition: Patient is observation status as patient will just require routine pain medications and therapy evaluations. Now if patient does require surgery then that could be changed at a later point but no plans for any surgery at this time Allergies/Procedures Done in Hospital Allergies pregabalin [From Lyrica] Adverse Reaction (Verified 08/30/22 12:20) hallucinations Procedures: None Type of Care/Length of Stay Estimated LOS: Convalescent Care Less Than 30 days Type of Care Needed: Skilled Rehab Potential: Fair Prognosis: Fair Additional Orders/Day of Discharge Day of Discharge: 08/31/22 Dietary and Speech Recommendations Dietitian Recommendations/Changes: Continue liberal regular diet d/t signs and symptoms of malnutrition Will add fortified foods at meals for increased nutrition if consumed Will order 4 oz ensure plus high protein 4x/day w/ medpass for increased nutrition if consumed. Discharge Plan Admission Admit Date/Time: 08/30/22 15:15 Primary Reason for Your Visit: right shoulder dislocation. Attending Provider: Thanh Rhoades Primary Care Provider: Casper Do Consulting Providers: Yong Valladares Discharge Orders/Prescriptions Prescriptions: New acetaminophen 500 mg Tablet 1,000 mg PO Q8 PRN (Reason: fever or pain) Qty: 20 0RF Ensure Plus High Protein 0.08 gram-1.5 kcal/mL Liquid 120 ml PO 4X/DAY Qty: 0 0RF Continued (DME) walker Qty: 1 0RF Rx Instructions: Walker with wheels, brakes, and seat carbidopa-levodopa [Sinemet] 25-100 mg Tablet 1 tab PO TIDCM@0900,1300,1800 Rx Instructions: 1 TAB orally carbidopa-levodopa 50-200 mg Tablet Extended Release 1 tab PO BID polyethylene glycol 3350 [Miralax] 17 gram/dose Powder 17 g PO DAILY food supplemt, lactose-reduced Liquid 240 ml PO BID tramadol 50 mg tablet 50 mg PO Q6H MDD 5 a day PRN (Reason: pain) 3 Days Qty: 12 0RF tamsulosin 0.4 mg capsule 0.4 mg PO QHS 30 Days Qty: 30 3RF quetiapine 25 mg tablet 25 mg PO QHS Qty: 30 1RF Hold Instructions: Resume on 08/28/22. escitalopram oxalate 10 mg tablet 10 mg PO QHS Qty: 90 0RF Discontinued cefuroxime axetil 250 mg tablet 250 mg PO BID 5 Days Qty: 10 0RF (DME) hospital bed Qty: 1 Referrals / Follow Up: Casper Do DO [Primary Care Provider] - Within 2 Weeks Yong Valladares MD [Med Staff - Active Staff] - Within 2 Weeks Disposition Disposition (needs filled in before D/C Order can be placed): [facility] Facility
[2022-08-31 14:20] VITALS: BP 123/66; PULSE 86; RESP 16; TEMP 36.6; O2SAT 96
--- NOTE | 2022-08-31 14:21 | DS.PCM_ITS ---
Providers Date of Admission: 08/30/22 Primary Care Physician: Dr. Casper Do, DO Consultations 08/30/22 16:12 Consult: Orthopedics Routine Consulting Provider: Yong Valladares Reason for Consult: right shoulder dislocation EMERGENT Consult: No MD Notified: Yes Date Notified: 08/30/22 Time Notified: 15:19 Method of Notification: ED Physician Initiated Reason For Visit: RIGHT SHOULD DISLOCATION. Diagnosis Discharge Diagnosis (1) Recurrent dislocation, right shoulder: Status: Acute Code(s): M24.411 - Recurrent dislocation, right shoulder Plan: Status post fall. Reduced in the emergency room Plan * Pain control * Nonweightbearing right upper extremity * CT ordered to evaluate show impacted Hill Sach right humeral head fracture. * DW Dr. Valladares: non-weight bearing. passive ROM dislocation protocol and follow with him in 2 weeks. (2) Debility: Status: Acute Code(s): R53.81 - Other malaise Plan: Patient was using a walker at baseline but given his right shoulder dislocation and humeral head fracture, patient will be nonweightbearing in the right upper extremity. Patient did have home health care at home but patient is can be profoundly limited given his fracture. PT OT evaluate and treat Plan Chronic conditions * Parkinson's disease: Continue with Sinemet * BPH: Continue Flomax CODE STATUS: Addressed with the patient's patient is full Disposition: to SNF. Medications at Discharge Home Medications walker #1 ea 04/14/20 carbidopa 25 mg-levodopa 100 mg tablet (Sinemet) 1 tab PO TIDCM@0900,1300,1800 parkinsons 02/24/21 carbidopa ER 50 mg-levodopa 200 mg tablet,extended release 1 tab PO BID parkinsons 12/07/21 tamsulosin 0.4 mg capsule 0.4 mg PO QHS BPH 30 days #30 caps 07/17/22 food supplemt, lactose-reduced 240 ml PO BID SUPPLEMENT 07/25/22 polyethylene glycol 3350 17 gram/dose oral powder (Miralax) 17 g PO DAILY CONSTIPATION 07/25/22 quetiapine 25 mg tablet 25 mg PO QHS Sleep #30 tabs 07/30/22 escitalopram oxalate 10 mg tablet 10 mg PO QHS DEPRESSION #90 tabs 08/23/22 acetaminophen 500 mg tablet 1,000 mg PO Q8 PRN fever or pain #20 tabs 08/31/22 food supplemt, lactose-reduced 0.08 gram-1.5 kcal/mL oral liquid (Ensure Plus High Protein) 120 ml PO 4X/DAY #0 mL 08/31/22 tramadol 50 mg tablet 50 mg PO Q6H PRN pain 3 days #12 tabs 08/31/22 Hospital Course Operations None Procedures None Summary of Care Provided Minutes Spent on Discharge: 32 Medical Records Data Medical Nutrition Assessment Dietitian: Malnutrition Criteria Met Start: 08/31/22 12:32 Freq: Status: Active Protocol: Document 08/31/22 12:32 [facility] (Rec: 08/31/22 12:32 [facility] [id number]) Nutrition Malnutrition Evidence of Malnutrition Exists Yes Malnutrition (moderate): Chronic Evidenced By Suboptimal Energy Intake ( Moderate),Weight Loss (Severe) ,Physical Changes (Moderate) Clinical Problem Chronic Disease or Condition Related Malnutrition Etiology related to inadequate energy intake Signs/Symptoms as evidence by po intake meeting <75% of estimated nutritional needs; unintentional wt loss and fat/ muscle wasting Status Active Problem Recommendation Dietitian Recommendations/Changes Continue liberal regular diet d/t signs and symptoms of malnutrition Will add fortified foods at meals for increased nutrition if consumed Will order 4 oz ensure plus high protein 4x/day w/ medpass for increased nutrition if consumed. Weight / BMI Weight Weight: 58.967 kg Body Mass Index (BMI) 20.3 ABG / Lab / Microbiology Data Result Diagrams: 08/30/22 12:45 08/30/22 12:45 Laboratory: Laboratory Results - last 24 hr 08/31/22 06:25: Vitamin D 25-Hydroxy 16.9 Radiography Diagnostic Testing: Radiology Impression Shoulder X-Ray 08/30/22 15:10 IMPRESSION: Reduction of right glenohumeral joint dislocation into anatomic alignment. Electronically Signed: Lorena Uriostegui MD at 15:26 EST , Upper Extremity CT 08/31/22 10:58 IMPRESSION: 1. Mild acute Hill-Sachs impaction fracture of the posterior lateral aspect of the humeral head with extension through the greater tuberosity. Electronically Signed: Dale Albert MD at 12:04 EST Reading Location ID and State: [address] [place] [address] , Service support , Meaningful Use Info Meaningful Use Diagnoses (Choose all that apply): None applicable Discharge Plan Admission Admit Date/Time: 08/30/22 15:15 Primary Reason for Your Visit: right shoulder dislocation. Attending Provider: Thanh Rhoades Primary Care Provider: Casper Do Consulting Providers: Yong Valladares Discharge Orders/Prescriptions Prescriptions: New acetaminophen 500 mg Tablet 1,000 mg PO Q8 PRN (Reason: fever or pain) Qty: 20 0RF Ensure Plus High Protein 0.08 gram-1.5 kcal/mL Liquid 120 ml PO 4X/DAY Qty: 0 0RF Continued (DME) walker Qty: 1 0RF Rx Instructions: Walker with wheels, brakes, and seat carbidopa-levodopa [Sinemet] 25-100 mg Tablet 1 tab PO TIDCM@0900,1300,1800 Rx Instructions: 1 TAB orally carbidopa-levodopa 50-200 mg Tablet Extended Release 1 tab PO BID polyethylene glycol 3350 [Miralax] 17 gram/dose Powder 17 g PO DAILY food supplemt, lactose-reduced Liquid 240 ml PO BID tramadol 50 mg tablet 50 mg PO Q6H MDD 5 a day PRN (Reason: pain) 3 Days Qty: 12 0RF tamsulosin 0.4 mg capsule 0.4 mg PO QHS 30 Days Qty: 30 3RF quetiapine 25 mg tablet 25 mg PO QHS Qty: 30 1RF Hold Instructions: Resume on 08/28/22. escitalopram oxalate 10 mg tablet 10 mg PO QHS Qty: 90 0RF Discontinued cefuroxime axetil 250 mg tablet 250 mg PO BID 5 Days Qty: 10 0RF (DME) hospital bed Qty: 1 Referrals / Follow Up: Casper Do DO [Primary Care Provider] - Within 2 Weeks Yong Valladares MD [Med Staff - Active Staff] - Within 2 Weeks Disposition Disposition (needs filled in before D/C Order can be placed): [facility] Facility Charges/Coding Visit Charges OBSV E&M: 31902 Observation care discharge
--- NOTE | 2022-08-31 14:37 | CASEMGMT ---
Social Work SW notified by Dr Rhoades that pt is d/c today. SW called pt , Jennifer to inform of d/c and transfer to TCU. Jennifer voiced understanding. Stated would be back at [facility] within the hour to assist with pt transfer. SW faxed discharge orders to TCU and informed bedside nurse, Shi, of need for covid test. Copies of discharge orders placed on pt chart, originals sent in envelope with pt. Disposition: TCU, Skilled level of care SAMMY Aviles
--- NOTE | 2022-08-31 16:01 | NURSING ---
report called to Tayla on TCU
== END 2022-08-31 16:20 | disposition skilled nursing facility (03) ==
LOC: ED 12:43 → MS3 17:31
PROVIDERS: Emergency Provider Student in an Organized Health Care Education/Training Program; PCP Family Medicine
DX: M24.411 Recurrent dislocation, right shoulder (principal); G20 Parkinson's disease; F02.80 Dementia in other diseases classified elsewhere, unspecified severity, without behavioral disturbance, psychotic disturbance, mood disturbance, and anxiety; J44.9 Chronic obstructive pulmonary disease, unspecified; R53.81 Other malaise; S42.91XA Fracture of right shoulder girdle, part unspecified, initial encounter for closed fracture; Z87.891 Personal history of nicotine dependence; I25.10 Atherosclerotic heart disease of native coronary artery without angina pectoris; W19.XXXA Unspecified fall, initial encounter; I73.00 Raynaud's syndrome without gangrene
CPT/HCPCS: 36415; 70450; 71045; 72125; 73030; 73200; 80053; 81001; 82306; 85025; 87426; 96361; 96372; 96374; 96375; 97162; 97166; 97802; 99218; 99284; J7030; A4216; G0378; J2405

== ENCOUNTER 2022-08-31 16:43 | Inpatient (IN) | payer MEDICARE, OTHER, SELFPAY ==
[2022-08-31 17:05] VITALS: BP 132/73; PULSE 80; RESP 16; TEMP 36.8; O2SAT 93
--- NOTE | 2022-08-31 17:36 | HP.PCM_ITS ---
HPI - General General Date of Admission: 08/31/22 Date of Service: 09/03/22 Chief Complaint: Here for rehabilitation. HPI Narrative 08/30/2022 NIKOLAS HANSON, is a 77 Male who presents to [facility] Emergency Department with upper extremity injury. Fall, usually walks with walker, fell with right arm out. Hit right hand, then right shoulder, right shoulder pain. CT brain negative, CT cervical spine negative. X-ray right shoulder shows humerus fracture, anterior dislocation. Morphine given for pain. Right shoulder reduced under sedation. 08/30/2022 Admit to Hospital. Non Weight Bearing right upper extremity for right humerus fracture. 08/31/2022 Feels okay. 08/31/2022 Dr. Valladares recommended hemiwalker, PT/OT. No surgery recommended at this time. 08/31/2022 CT right shoulder Mild acute Hill-Sachs impaction fracture of the posterior lateral aspect of the humeral head with extension through the greater tuberosity. 08/31/2022 Admit to TCU with debility, here for rehabilitation, strengthening, prior to discharge home with . [facility] Medical History Abdominal aortic aneurysm Acute encephalopathy Atherosclerotic heart disease of craig coronary artery without angina pectoris COPD (chronic obstructive pulmonary disease) Debility Debility Dementia Former smoker Parkinson's disease Raynauds disease Home Medications walker #1 ea 04/14/20 [Rx Last Taken Unknown] carbidopa 25 mg-levodopa 100 mg tablet (Sinemet) 1 tab PO TIDCM@0900,1300,1800 parkinsons 02/24/21 [History Last Taken 07/25/22] carbidopa ER 50 mg-levodopa 200 mg tablet,extended release 1 tab PO BID parkinsons 12/07/21 [History Last Taken 07/25/22] tamsulosin 0.4 mg capsule 0.4 mg PO QHS BPH 30 days #30 caps 07/17/22 [Rx Last Taken 07/24/22] food supplemt, lactose-reduced 240 ml PO BID SUPPLEMENT 07/25/22 [History Last Taken 07/24/22] polyethylene glycol 3350 17 gram/dose oral powder (Miralax) 17 g PO DAILY CONSTIPATION 07/25/22 [History Last Taken 07/24/22] quetiapine 25 mg tablet 25 mg PO QHS Sleep #30 tabs 07/30/22 [Rx Last Taken Unknown] escitalopram oxalate 10 mg tablet 10 mg PO QHS DEPRESSION #90 tabs 08/23/22 [Rx Last Taken Unknown] acetaminophen 500 mg tablet 1,000 mg PO Q8 PRN fever or pain #20 tabs 08/31/22 [Rx Last Taken Unknown] food supplemt, lactose-reduced 0.08 gram-1.5 kcal/mL oral liquid (Ensure Plus High Protein) 120 ml PO 4X/DAY supplement 08/31/22 [History Last Taken Unknown] tramadol 50 mg tablet 50 mg PO Q6H PRN Pain 08/31/22 [History Last Taken Unknown] tramadol 50 mg tablet 50 mg PO Q6H PRN pain 3 days #12 tabs 08/31/22 [Rx Last Taken Unknown] Allergy/AdvReac Type Severity Reaction Status Date / Time pregabalin [From Lyrica] AdvReac hallucinati Verified 08/30/22 12:20 ons Family History Brother Alcoholism Father Heart disease Myocardial infarction Uncle Heart disease Myocardial infarction Grandfather Heart disease Myocardial infarction Mother Heart disease Surgical History History of cataract surgery History of colonoscopy History of left hip hemiarthroplasty History of tonsillectomy Social History household members: spouse Smoking Status: Former smoker how long ago did patient quit smokin alcohol intake: never substance use type: does not use what type of physical activity do you participate in: walking frequency: daily ROS Constitutional Constitutional: Denies chills, fever(s) or weight gain ENT HEENT: Denies headache(s), nasal congestion or nasal discharge Cardiovascular Cardiovascular: Denies chest pain or palpitations Respiratory/Chest Respiratory/Chest: Denies cough, excessive phlegm production or shortness of breath with exertion Gastrointestinal Gastrointestinal: Denies abdominal pain, nausea or vomiting Genitourinary Genitourinary: Denies dysuria Musculoskeletal Musculoskeletal: Denies joint pain or joint swelling Integumentary Integumentary: Denies rash or wounds Neurologic Neurologic: Denies focal weakness, numbness or tingling Psychiatric Psychiatric: Denies anxiety, auditory hallucinations, depression, homicidal ideation or suicidal ideation Vital Signs Vital Signs Vital Signs: 08/31/22 17:05 Temperature 98.2 F Temperature Source Temporal Pulse Rate 80 Respiratory Rate 16 Blood Pressure 132/73 H Blood Pressure Mean 92 Blood Pressure Source Monitor Pulse Ox 93 Oxygen Delivery Method Room Air Weight Weight: 63.503 kg Physical Exam Const alert General Appearance: cooperative HEENT normocephalic Eyes PERRL and EOMs intact bilaterally Neck supple, no JVD and no carotid bruits Resp normal respiratory effort, normal air movement and clear to auscultation bilaterally Cardio regular rate and regular rhythm GI normal to inspection, nondistended, normoactive bowel sounds, non-tender and non-distended Extremity normal capillary refill General Extremity: Negative for edema Skin no rashes or lesions noted General Skin Exam: no breakdown Psych affect normal Appearance: appropriate Results Lab / Micro Data Result Diagrams: 09/01/22 05:18 09/01/22 05:18 Assessment & Plan Assessment/Plan (1) Debility: (2) Dislocation of right shoulder joint: (3) Closed right humeral fracture: (4) Parkinson disease: (5) Irritable bowel syndrome: (6) Depression: (7) Benign prostatic hyperplasia: (8) Visual hallucination: (9) Parkinson's disease dementia: PLAN: Plan 77 year old male with below past medical history significant for Parkinson Disease, frequent falls hospitalized for closed right humerus fracture, no surgery recommended, but NWB, unable to be cared for at home, admitted to TCU with debility, here for rehabilitation, strengthening, prior to discharge home with . * Debility - PT/OT. * Pain - Tylenol 1000mg q8, Tramadol 50mg q6h prn pain (1-5), Oxycodone 5mg q4h prn pain (6-10). * Bowel - Miralax 17gm daily, senna/colace 2 tablets bid, MOM 30ml daily prn. * Adult immunization - Administer pneumonia vaccine, covid19 vaccine, flu vaccine as appropriate. * DVT prophylaxis - Hold, pending labs. * Parkinson Disease - Sinemet 25/100mg tid, Sinemet 50/200mg 1 tablet bid. * Nutrition - Ensure Clear 240ml bid, Ensure high protein 120ml 4x/day. * Depression - Lexapro 10mg qhs, stable chronic longterm use, GDR not recommended. 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 * BPH - Tamsulosin 0.4mg qhs.
[2022-08-31] MEDS: Carbidopa/Levodopa 25/100 Tablet PO (18:15)
[2022-08-31] MEDS: Senna/Docusate Sodium 1 Tablet 2 TABLET PO (18:15)
[2022-08-31] MEDS: CARBIDOPA/LEVODOPA CR 50/200 Tablet PO (20:40)
[2022-08-31] MEDS: Escitalopram Oxalate 10 MG Tablet PO (20:40)
[2022-08-31] MEDS: QUEtiapine 25 MG Tablet PO (20:40)
[2022-08-31] MEDS: Acetaminophen 500 MG Tablet 1000 MG PO (20:40)
[2022-08-31] MEDS: Tamsulosin HCl 0.4 MG Capsule PO (20:40)
[2022-09-01 05:39] LABS: Absolute Lymphocyte Count 1.39 X10^3/uL (0.83-4.51); Absolute Neutrophil Count 5.7 X10^3/uL (2.0-7.7); Basophil# 0.06 X10^3/uL; Basophil% 0.7 % (0-1); Eosinophil# 0.26 X10^3/uL; Eosinophils% 3.2 % (0-5); Hematocrit 40.2 % (40-54); Lymphocyte # 1.39 X10^3/ul (0.83-4.51); Lymphocyte % 16.9 % (19-41); Mean Corp Hgb Conc 32.3 g/dL (32-36); Mean Corpuscular Hgb 30.9 pg (27.0-32.0); Mean Corpuscular Volume 95.5 fL (80-94); Mean Platelet Vol. 10.1 fl (6.2-12.0); Monocyte# 0.72 X10^3/uL; Monocyte% 8.8 % (0-10); NRBC Flagged by Analyzer 0 % (0-5); Neutrophil # 5.66 X10^3/uL (2.7-7.7); Neutrophil % 68.8 % (47-70); Platelet Count 230 K/mm3 (150-450); RBC Distribution Width CV 13.3 % (11.6-14.6); RBC Distribution Width SD 46.8 fl (35.1-43.9); Red Blood Count 4.21 M/mm3 (4.6-6.2); White Blood Count 8.2 K/mm3 (4.4-11.0)
[2022-09-01] MEDS: Senna/Docusate Sodium 1 Tablet 2 TABLET PO ×2 (05:54→17:22)
[2022-09-01] MEDS: Polyethylene Glycol 3350 17 GM PACKET PO (05:54)
[2022-09-01] MEDS: Acetaminophen 500 MG Tablet 1000 MG PO ×3 (05:54→21:01)
[2022-09-01] MEDS: Ensure Plus High Protein 120 ML LIQUID PO ×4 (05:54→21:02)
[2022-09-01 06:02] LABS: Anion Gap 4 (5-15); BUN 15 mg/dL (7-18); BUN/Creat Ratio 19.7 RATIO (10-20); Calcium,Total 8.2 mg/dL (8.5-10.1); Chloride 107 mmol/L (98-107); Creatinine, Serum 0.76 mg/dL (0.70-1.30); EST Glomerular Filtration Rate 106 mL/min (>60); Est Glom Filt Rate - Afr Amer 128 mL/min (>60); Estimated Creatinine Clearance 56.45 ml/min; Glucose 91 mg/dL (74-106); Potassium 3.8 mmol/L (3.5-5.1); Sodium Level 138 mmol/L (136-145)
[2022-09-01] MEDS: CARBIDOPA/LEVODOPA CR 50/200 Tablet PO ×2 (09:07→21:02)
[2022-09-01] MEDS: Carbidopa/Levodopa 25/100 Tablet PO ×3 (09:08→17:23)
[2022-09-01] MEDS: oxyCODONE 5 MG Tablet PO ×2 (09:29→21:01)
[2022-09-01] MEDS: Tuberculin,Purif.prot.deriv. 50 TU/ML Vial 0.1 ML ID (10:46)
--- NOTE | 2022-09-01 10:58 | NURSING ---
SALINE LOCK D/C DUE TO SITE RED AND HARD. RN AWARE
[2022-09-01 15:07] VITALS: BP 85/49; PULSE 87; RESP 18; TEMP 36.6; O2SAT 92
[2022-09-01 15:31] VITALS: BP 82/52
[2022-09-01] MEDS: Calcium Carbonate 500 MG Tablet PO (17:22)
[2022-09-01 19:33] VITALS: BP 129/77; PULSE 85; RESP 16; TEMP 37.3
[2022-09-01 19:34] VITALS: PULSE 85; RESP 16; O2SAT 93
[2022-09-01] MEDS: QUEtiapine 25 MG Tablet PO (21:01)
[2022-09-01] MEDS: Tamsulosin HCl 0.4 MG Capsule PO (21:01)
[2022-09-01] MEDS: Escitalopram Oxalate 10 MG Tablet PO (21:02)
[2022-09-02] MEDS: Acetaminophen 500 MG Tablet 1000 MG PO ×3 (05:59→20:37)
[2022-09-02] MEDS: Ensure Plus High Protein 120 ML LIQUID PO ×4 (05:59→20:36)
[2022-09-02] MEDS: Polyethylene Glycol 3350 17 GM PACKET PO (05:59)
[2022-09-02] MEDS: Senna/Docusate Sodium 1 Tablet 2 TABLET PO ×2 (06:00→18:05)
[2022-09-02] MEDS: Calcium Carbonate 500 MG Tablet PO ×2 (07:58→18:05)
[2022-09-02] MEDS: CARBIDOPA/LEVODOPA CR 50/200 Tablet PO ×2 (09:24→20:37)
[2022-09-02] MEDS: Carbidopa/Levodopa 25/100 Tablet PO ×3 (09:24→18:06)
[2022-09-02 09:30] VITALS: PULSE 81; RESP 18; O2SAT 94
[2022-09-02] MEDS: Menthol/Lanolin/Calamine/Znox 113 GM Tube 1 APPLIC TOPICAL ×2 (11:13→18:06)
--- NOTE | 2022-09-02 13:34 | NURSING ---
FLOATING HEELS DUE TO REDNESS. NO COMPLAINTS AT THIS TIME FROM PT.
[2022-09-02] MEDS: traMADol 50 MG Tablet PO (14:07)
[2022-09-02 15:01] VITALS: BP 97/58; PULSE 62; RESP 16; TEMP 36.6; O2SAT 94
[2022-09-02] MEDS: oxyCODONE 5 MG Tablet PO (18:08)
--- NOTE | 2022-09-02 18:19 | NURSING ---
AT 1730 PT CAME TO THIS NURSE AND STATED ERNESTO IS TRYING TO GET OUT OF THE CHAIR. THIS NURSE TO ROOM AND FOUND PT LEGS THROWN OVER FOOT REST ON RECLINER AND TRYING TO STAND. FAMILY IN ROOM TELLING PT TO SIT DOWN. THIS NURSE ASKED PT WANT HE WANTED AND PT STATED TO GET THE HELL OUT OF HERE I WANT TO GO HOME THIS NURSE AND FAMILY TRIED TO EXPLAINED TO PT WHY HE WAS HERE. ASKED PT TO SIT DOWN DUE TO PT LEG CAUGHT BETWEEN FOOT REST AND RECLINER. PT STATED NO YOU WONT LET ME OUT. PT THEN FINAL SAT BACK DOWN AND THIS NURSE GOT PT LEGS ON TO FOOT REST AND PT STATED HE WANTED THEM DOWN. THIS NURSE PUT LEGS DOWN AND PT JUMPED UP OUT OF RECLINER AND TRIED TO WALK AWAY. THIS NURSE CAUGHT PT AND STATED TO LET ME PUT THE GAIT BELT ON IF HE WANTED TO GO FOR A WALK. PT STATED NO,TOOK SLING OFF OF RIGHT ARM AND THREW IT. THIS NURSE STATED TO PT THAT HE NEEDED THE SLING ON DUE TO A FRACTURE IN HIS ARM. PUT GAIT BELT ON PT WHEN PT STARTED TO WALK WHILE THIS NURSE HELD ON TO PT ON LEFT SIDE,PT STOPPED AND HIT THIS NURSE IN THE CHEST. YELLED AT PT AND THIS NURSE STATED TO PT THAT WE DO NOT HIT ANY ONE HERE AND ARE JUST TRYING TO HELP HIM. PT CONTINUED TO WALK TO THE ROOM DOOR AND THIS NURSE HAD FOLLOW WITH THE RECLINER BEHIND PT AND THIS NURSE GRABBED PT CITLALY WALKER FOR PT TO USE. PT GRAB WALKER AND HELD ON WITH WITH BOTH HANDS PUTTING PRESSURE ON FRACTURED ARM. EDUCATED PT ON USING ONLY HIS LEFT HAND DUE TO THE FRACTURE ON THE RIGHT SIDE PT REFUSED. WHEN PT GOT TO DOOR WAY HE STOPPED AND SAT DOWN IN RECLINER. ASKED PT IF HE WANT TO GO BACK TO ROOM AND TAKE HIS MEDS,PT STATED NO. STAYED AT DOOR WAY FOR ABOUT 10 MINS AND PT GOT BACK UP AGAIN AND STARTED WALKING WITH CITLALY WALKER WITH BOTH HANDS WITH BEHIND PT WITH RECLINER. GOT DOWN TO ROOM 2 AND PT TRIED TO THROW WALKER INTO ROOM HITTING THIS NURSE IN THE LEFT LEG. THIS NURSE CAUGHT THE WALKER AND STATED TO PT THAT WE DO NOT THROW THINGS HERE AND THERE'S OTHER PTS AND PEOPLE HERE THAT HE COULD HURT. PT WALKED TO ROOM 1 AND STATED HE WAS TIRED AND SAT DOWN IN RECLINER. KEPT TALKING AND ASKING PT QUESTIONS AND AGITATED PT MORE. THIS NURSE ASKED TO GO BACK TO PT ROOM AND THIS NURSE WOULD BRING HIM BACK WHEN HES READY. AT 1800 PT STATED HE WANTED TO GO BACK TO ROOM AND LYE DOWN. PT BACK TO ROOM AND PT TOOK MEDS PLUS PAIN MED DUE TO PT FACIAL GRIMACING AND STATED HIS RIGHT ARM HURT. ASKED AIDS TO HELP GET PT COMFORTABLE IN BED. BED AT LOW POSITION TO FLOOR. ALARM ON,MATS ON FLOOR BESIDE BED. WENT HOME. PT ASKED FOR NURSE TO TURN TV UP. PT RESTING AT THIS TIME. RN AWARE
[2022-09-02] MEDS: Tamsulosin HCl 0.4 MG Capsule PO (20:36)
[2022-09-02] MEDS: Escitalopram Oxalate 10 MG Tablet PO (20:37)
[2022-09-02] MEDS: QUEtiapine 25 MG Tablet PO (20:37)
[2022-09-03] MEDS: oxyCODONE 5 MG Tablet PO ×2 (05:07→20:11)
[2022-09-03] MEDS: Menthol/Lanolin/Calamine/Znox 113 GM Tube 1 APPLIC TOPICAL ×2 (05:07→17:38)
[2022-09-03] MEDS: Ensure Plus High Protein 120 ML LIQUID PO ×4 (05:08→20:07)
[2022-09-03] MEDS: Senna/Docusate Sodium 1 Tablet 2 TABLET PO ×2 (05:08→17:38)
[2022-09-03] MEDS: Polyethylene Glycol 3350 17 GM PACKET PO (05:08)
[2022-09-03] MEDS: Acetaminophen 500 MG Tablet 1000 MG PO ×3 (05:09→20:11)
--- NOTE | 2022-09-03 07:26 | NURSING ---
No aggression this shift toward staff. Alert to self. Patient does present as impulsive, restless, and agitated at times. 1:1 effective with redirect. Patient noted to impulsively stand at times and attempt to walk without assistive device despite verbal cues. Gait unsteady. Personal alarm in place to promote patient safety and alert staff of unassisted transfers. Presents in bed, with call light in reach.
[2022-09-03] MEDS: traMADol 50 MG Tablet PO (08:43)
[2022-09-03] MEDS: Calcium Carbonate 500 MG Tablet PO (08:44)
[2022-09-03] MEDS: Carbidopa/Levodopa 25/100 Tablet PO ×3 (08:44→17:38)
[2022-09-03] MEDS: CARBIDOPA/LEVODOPA CR 50/200 Tablet PO ×2 (11:52→20:08)
[2022-09-03 13:37] VITALS: BP 101/52; PULSE 87; RESP 16; TEMP 36.3; O2SAT 96
--- NOTE | 2022-09-03 14:36 | PHA.CONS_ITS ---
TCU RX Drug Regimen Review Subjective: TCU Admission. 77 YOM presented to the ER with a fall. Hospitalized for frequent falls, closed right humerus fracture, no surgery recommended. Admitted to TCU with debility for strengthening and rehabilitation. Objective: Allergies pregabalin [From Lyrica] Adverse Reaction (Verified 08/30/22 12:20) hallucinations Current Medications Generic Name Dose Route Start Last Admin Trade Name Freq PRN Reason Stop Dose Admin Acetaminophen 1,000 mg 08/31/22 22:00 09/03/22 13:20 Acetaminophen 500 Mg Tablet PO 1,000 mg Q8 TYRELL Administration Calamine/Phenol 1 applic 09/02/22 10:00 09/03/22 05:07 Menthol/Lanolin/Calamine/Znox 113 Gm Tube TOPICAL 1 applic BID TYRELL Administration Protocol Calcium Carbonate 500 mg 09/01/22 17:00 09/03/22 08:44 Calcium Carbonate 500 Mg Tablet PO 500 mg BIDCM TYRELL Administration Carbidopa/Levodopa 1 tablet 08/31/22 18:00 09/03/22 13:18 Carbidopa/Levodopa 25/100 Tablet PO 1 tablet TIDCM@0900,1300,1800 TYRELL Administration Carbidopa/Levodopa 1 tablet 08/31/22 22:00 09/03/22 11:52 Carbidopa/Levodopa Cr 50/200 Tablet PO 1 tablet BID@1000,2200 TYRELL Administration Escitalopram Oxalate 10 mg 08/31/22 22:00 09/02/22 20:37 Escitalopram Oxalate 10 Mg Tablet PO 10 mg QHS TYRELL Administration Magnesium Hydroxide 30 ml 08/31/22 17:48 Magnesium Hydroxide 30 Ml Udc PO DAILY PRN CONSTIPATION Nutritional Formula (Lactose Free) 120 ml 08/31/22 22:00 09/03/22 11:54 Ensure Plus High Protein 120 Ml Liquid PO 120 ml 4X/DAY TYRELL Administration Oxycodone HCl 5 mg 08/31/22 17:48 09/03/22 05:07 Oxycodone 5 Mg Tablet PO 5 mg Q4H PRN PRN Administration Pain Score 6-10 Polyethylene Glycol 17 gm 09/01/22 06:00 09/03/22 05:08 Polyethylene Glycol 3350 17 Gm Packet PO 17 gm DAILY TYRELL Administration Quetiapine Fumarate 25 mg 08/31/22 22:00 09/02/22 20:37 Quetiapine 25 Mg Tablet PO 25 mg QHS TYRELL Administration Senna/Docusate Sodium 2 tablet 08/31/22 18:00 09/03/22 05:08 Senna/Docusate Sodium 1 Tablet PO 2 tablet BID TYRELL Administration Tamsulosin HCl 0.4 mg 08/31/22 22:00 09/02/22 20:36 Tamsulosin Hcl 0.4 Mg Capsule PO 0.4 mg QHS TYRELL Administration Tramadol HCl 50 mg 08/31/22 17:49 09/03/22 08:43 Tramadol 50 Mg Tablet PO 50 mg Q6H PRN PRN Administration Pain Score 1-5 Tuberculin PPD 0.1 ml 09/08/22 10:00 Tuberculin,Purif.Prot.Deriv. 50 Tu/Ml Vial ID 09/08/22 10:01 X1 ONE Problem List (Last Reviewed 08/31/22 @ 17:[address] Christian Burrell MD) Parkinson's disease dementia (Acute) Visual hallucination (Acute) Benign prostatic hyperplasia (Acute) Depression (Acute) Irritable bowel syndrome (Acute) Parkinson disease (Acute) Closed right humeral fracture (Acute) Debility (Acute) Dislocation of right shoulder joint (Acute) Vital Signs Temp Pulse Resp BP Pulse Ox O2 Del Method 97.4 F L 87 16 101/52 L 96 Room Air 09/03/22 13:37 09/03/22 13:37 09/03/22 13:37 09/03/22 13:37 09/03/22 13:37 09/03/22 13:37 Oxygen Delivery Method Room Air Weight: 63.503 kg Sodium 138 mmol/L (136-145) 09/01/22 05:18 Potassium 3.8 mmol/L (3.5-5.1) 09/01/22 05:18 Chloride 107 mmol/L (98-107) 09/01/22 05:18 Carbon Dioxide 27.0 mmol/L (21.0-32.0) 09/01/22 05:18 Anion Gap 4 (5-15) L 09/01/22 05:18 BUN 15 mg/dL (7-18) 09/01/22 05:18 Creatinine 0.76 mg/dL (0.70-1.30) 09/01/22 05:18 Est GFR (MDRD) Af Amer 128 mL/min (>60) 09/01/22 05:18 Est GFR (MDRD) Non-Af 106 mL/min (>60) 09/01/22 05:18 BUN/Creatinine Ratio 19.7 RATIO (10-20) 09/01/22 05:18 Glucose 91 mg/dL (74-106) 09/01/22 05:18 Assessment/Plan: 1. Pain: acetaminophen?1000 mg?PO Q8H, tramadol?50 mg?PO Q6H PRN pain score (1- 5), and oxycodone?5 mg?PO Q4H PRN pain score (6-10).?Tramadol (2 doses so far) last administered 09/03/22 for pain score 7/10 of arm. Oxycodone (4 doses so far) last administered 09/03/22 for pain score 9/10 of shoulder. Please continue to?monitor?for increased pain, PRN use, bowel movements (last documented 08/19/22), renal function, falls/fractures (BEERs criteria med) and respiratory depression.?? 2. Bowel:?Miralax?17 gm PO daily, senna/docusate 2 tablets PO BID, and MOM 30 mL PO daily PRN constipation.?Please continue to?monitor?for constipation and PRN use of MOM (none given yet). Last documented bowel movement 08/19. ?? 3. Parkinsons disease: carbidopa/levodopa 25/100 mg PO TID and carbidopa levodopa 50/200 mg?PO BID.?Please continue to monitor LFT (last 08/30/22), constipation, nausea, headaches,?and?involuntary movements.? 4. BPH: tamsulosin 0.4mg?PO QHS.?Please continue to?monitor?for headache, BP (last /), dizziness, and rhinitis.?? 5. Acid reflux: calcium carbonate?500 mg?PO BID. Please continue to?monitor?calcium (last?8.2 mg/dL) and symptoms of worsening acid reflux.?? Assessment/Plan for indications treated with psychotropic medications: 1. Depression: escitalopram?10mg?PO QHS. Please refer to provider note?rega rding?GDR.?Please continue to?monitor?weight (63.5 kg), falls/fractures (BEERs criteria), and syncope (BEERS Criteria) and signs of suicidal ideation (black box warning).? 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 Medical chart and medication regimen reviewed. The following medication irregularities or issues were identified: *1. Resident admitted with frequent falls/fracture. On quetiapine and escitalopram at baseline which are both on the BEERs list due to increased risk of falls. Also on oxycodone here due to fracture which can contribute to falls. Please continue to monitor closely. Date of Note:: 09/03/22
[2022-09-03] MEDS: LORazepam 2 MG/ML Syringe 1 MG IM (15:56)
--- NOTE | 2022-09-03 17:30 | CASEMGMT ---
Social Work See attached assessment for complete details. This social services attempted to complete assessment with patient in room. Patient is not oriented to place, person or time. Patient inquired about black dot on wall. This social services noting that there is not black dot on wall. Patient states need to get to a meeting. There is not family meetings today and this social services confirmed this information with staff. Telephone call to patient spouse, Jennifer. Jennifer able to answer questions on assessment. Plan is for patient to discharge to home with 24/7 care that patient has been receiving from family/friends. Jennifer states I can't leave him alone. Jennifer reports that patient has hallucinations that is normal for him. This social services educated Jennifer on insurance benefit and encouraged Jennifer to reach out to secondary insurance to inquire about possible co-pay after 21 days if patient continues to require skilled care. Jennifer with no questions. Jennifer confirms patient code status of DNRCC-A with no intubation as unable to complete MOLST form with patient. Social Work to continue to follow. Arik Amos MSW, CHRISTIANO
--- NOTE | 2022-09-03 19:36 | NURSING ---
1800-patient calm and cooperative, sitting up in bed. 1545-Patient beginning to get agitated after coming back to room from therapy this afternoon. Therapist guiding him to his room but patient kept walking into hallway trying to go into other patient's rooms. Unable to be re-directed. This RN and other staff attempted to help patient to his chair. He refused, started to become combative, refused to sit in recliner or on bed. He told staff to get out of his room and walked back into hallway. Updated Dr Burrell, order for 1mg IM ativan. Ativan given and patient relaxed, sat in his chair for a bit then wanted to go to bed and slept for a while.
[2022-09-03] MEDS: Tamsulosin HCl 0.4 MG Capsule PO (20:07)
[2022-09-03] MEDS: Escitalopram Oxalate 10 MG Tablet PO (20:08)
[2022-09-03] MEDS: QUEtiapine 25 MG Tablet PO (20:08)
[2022-09-03 21:35] VITALS: RESP 16; O2SAT 94
[2022-09-04] MEDS: Ensure Plus High Protein 120 ML LIQUID PO ×4 (05:30→21:10)
[2022-09-04] MEDS: Senna/Docusate Sodium 1 Tablet 2 TABLET PO ×2 (05:31→16:58)
[2022-09-04] MEDS: Acetaminophen 500 MG Tablet 1000 MG PO ×3 (05:31→21:14)
[2022-09-04] MEDS: Polyethylene Glycol 3350 17 GM PACKET PO (05:32)
[2022-09-04] MEDS: Menthol/Lanolin/Calamine/Znox 113 GM Tube 1 APPLIC TOPICAL ×2 (05:34→16:58)
[2022-09-04] MEDS: oxyCODONE 5 MG Tablet PO ×2 (08:00→21:09)
[2022-09-04] MEDS: Calcium Carbonate 500 MG Tablet PO ×2 (08:00→16:58)
[2022-09-04] MEDS: Carbidopa/Levodopa 25/100 Tablet PO ×3 (08:01→16:59)
[2022-09-04] MEDS: CARBIDOPA/LEVODOPA CR 50/200 Tablet PO ×2 (10:10→21:09)
[2022-09-04 13:27] VITALS: BP 119/70; PULSE 86; RESP 15; TEMP 36.7; O2SAT 97
--- NOTE | 2022-09-04 13:44 | NURSING ---
Jennifer Rhodes gave verbal consent over the phone for pt to receive covid booster. Telephone consent verified by Manas Beauchamp RN and Gely MCKEON.
[2022-09-04] MEDS: Magnesium Hydroxide 30 ML UDC PO (16:02)
--- NOTE | 2022-09-04 19:26 | NURSING ---
Pt. spouse (Jennifer) at bedside and requests increase in daily frequency of seroquel because his behaviors are just getting worse. Pt. spouse notified that patient to recieve RTN dose of seroquel this HS and notified that Dr. Burrell will be notified of spouse request in AM, spouse agreeable and expresses thanks.
[2022-09-04] MEDS: QUEtiapine 25 MG Tablet PO (21:09)
[2022-09-04] MEDS: Tamsulosin HCl 0.4 MG Capsule PO (21:09)
[2022-09-04] MEDS: Escitalopram Oxalate 10 MG Tablet PO (21:10)
[2022-09-05] MEDS: oxyCODONE 5 MG Tablet PO (05:02)
[2022-09-05] MEDS: Senna/Docusate Sodium 1 Tablet 2 TABLET PO ×2 (05:02→17:47)
[2022-09-05] MEDS: Acetaminophen 500 MG Tablet 1000 MG PO ×3 (05:03→20:47)
[2022-09-05] MEDS: Polyethylene Glycol 3350 17 GM PACKET PO (05:03)
[2022-09-05] MEDS: Ensure Plus High Protein 120 ML LIQUID PO ×4 (05:03→20:48)
[2022-09-05] MEDS: Menthol/Lanolin/Calamine/Znox 113 GM Tube 1 APPLIC TOPICAL ×2 (05:03→17:47)
--- NOTE | 2022-09-05 08:55 | NURSING ---
General Forecaster Note; Activity Asset: Complete
--- NOTE | 2022-09-05 08:56 | NURSING ---
Addendum entered by Jay Vela 09/05/22 10:42: CALLED BACK AND STATED PT HAS APPOINTMENT WITH ON 09/24/22 AT 9:30 AM. CALLED AND STATED PT WILL PROBABLY NOT BE ON TCU AT THAT TIME. THIS NURSE STATED TO THAT IF HE IS TO LET US KNOW IF SHE WANTS TO TAKE PT TO APPOINTMENT OR SET UP TRANSPORT. STATED OK. Original Note: CALLED DR. PRETTY OFFICE TO SCHEDULE A FOLLOW UP FOR PT. OFFICE STATED THEY WILL TALK TO THE TO SEE WHEN THEY COULD GET HIM IN AND CALL US BACK.
[2022-09-05] MEDS: Calcium Carbonate 500 MG Tablet PO ×2 (09:16→17:46)
[2022-09-05] MEDS: CARBIDOPA/LEVODOPA CR 50/200 Tablet PO ×2 (09:16→20:47)
[2022-09-05] MEDS: Carbidopa/Levodopa 25/100 Tablet PO ×3 (09:16→17:49)
--- NOTE | 2022-09-05 09:23 | NURSING ---
Patient's was in this am and stated that she helped him use the restroom on 09/03 and he had a bowel movement. Therapy requested for me to wait until after his therapy session today after to give him his golytely.
[2022-09-05] MEDS: Electrolyte Solution/Peg's 4000 ML 1000 ML PO (11:39)
--- NOTE | 2022-09-05 11:56 | NURSING ---
patient had a large bowel movement formed so i did not give him the gotytely.
[2022-09-05] MEDS: Arthritis Pain Compound 60 CLICK TUBE TOPICAL ×2 (12:11→17:46)
[2022-09-05] MEDS: oxyCODONE 5 MG Tablet 10 MG PO ×2 (12:46→20:47)
[2022-09-05 14:09] VITALS: BP 132/81; PULSE 63; RESP 18; TEMP 36.9; O2SAT 97
--- NOTE | 2022-09-05 15:33 | CASEMGMT ---
Social Work IDT met with patient and for care plan meeting. Discussed patient's progress in PT/OT/SN. Educated to Medicare benefit. Encouraged to contact secondary insurance to ensure copay coverage. Pts goal is to return home with . 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 Offered therapy training. would decide at what level pt can return home. SW to continue to follow for DC planning. Cynthia Jurado. SALES AND OPERATIONS TRAINEE FIELD REVIEWER
[2022-09-05] MEDS: QUEtiapine 25 MG Tablet PO (17:47)
[2022-09-05 20:00] VITALS: PULSE 77; RESP 18; O2SAT 96
[2022-09-05] MEDS: Escitalopram Oxalate 10 MG Tablet PO (20:47)
[2022-09-05] MEDS: Tamsulosin HCl 0.4 MG Capsule PO (20:48)
[2022-09-06] MEDS: oxyCODONE 5 MG Tablet 10 MG PO ×3 (04:00→17:19)
[2022-09-06] MEDS: Menthol/Lanolin/Calamine/Znox 113 GM Tube 1 APPLIC TOPICAL ×2 (06:08→17:20)
[2022-09-06] MEDS: Arthritis Pain Compound 60 CLICK TUBE TOPICAL ×2 (06:09→17:20)
[2022-09-06] MEDS: QUEtiapine 25 MG Tablet PO ×2 (06:09→17:21)
[2022-09-06] MEDS: Polyethylene Glycol 3350 17 GM PACKET PO (06:09)
[2022-09-06] MEDS: Senna/Docusate Sodium 1 Tablet 2 TABLET PO ×2 (06:09→17:21)
[2022-09-06] MEDS: Acetaminophen 500 MG Tablet 1000 MG PO ×3 (06:11→19:43)
[2022-09-06] MEDS: Carbidopa/Levodopa 25/100 Tablet PO ×3 (09:00→17:21)
[2022-09-06] MEDS: Calcium Carbonate 500 MG Tablet PO ×2 (09:00→17:19)
[2022-09-06] MEDS: CARBIDOPA/LEVODOPA CR 50/200 Tablet PO ×2 (09:00→19:47)
--- NOTE | 2022-09-06 12:15 | CASEMGMT ---
Social Work BIMS (12/19) and PHQ-9 (03/02) completed for MDS assessment. Cynthia Jurado MSW MEAT SUPERVISOR
[2022-09-06] MEDS: Ensure Plus High Protein 120 ML LIQUID PO ×3 (12:25→21:26)
[2022-09-06 12:53] VITALS: BP 84/58
[2022-09-06 13:45] VITALS: PULSE 81; RESP 14; TEMP 36.4; O2SAT 93
[2022-09-06] MEDS: 0.9% Normal Saline 1,000 ML 500 ML IV (13:59)
--- NOTE | 2022-09-06 14:10 | NURSING ---
per doctors orders started and iv, ns bolus, patient tolerated well, will continue to monitor
[2022-09-06 16:44] VITALS: BP 96/57; PULSE 90; RESP 16; TEMP 36.4; O2SAT 95
[2022-09-06] MEDS: 0.9% Saline Lock 10 ML Syringe IV (17:31)
[2022-09-06 17:34] LABS: Bacteria 0 SEEN /hpf (None Seen); Mucous, Urine 0 SEEN /hpf (<or=2+); Red Blood Cells-Urine 0 SEEN /hpf (0-5); Squamous Epithelial Cells - UA 0 SEEN /hpf (0-5)
[2022-09-06 17:37] LABS: Color, Urine Yellow (Yellow); Glucose, Dipstick Normal (Normal); Ketone-Dipstick 5 mg/dl (Negative); Leukocyte Esterase-Dipstick 25 /ul (Negative); Nitrite-Dipstick Negative (Negative); Occult Blood-Urine Negative /ul (Negative); Protein-Dipstick 15 mg/dl (Negative); Urine Bilirubin Dipstick Negative (Negative); Urine Clarity Clear (Clear); Urine Urobilinogen Normal (Normal)
[2022-09-06 17:43] LABS: White Blood Cells 0-5 SEEN /hpf (0-5)
[2022-09-06] MEDS: Escitalopram Oxalate 10 MG Tablet PO (19:43)
[2022-09-06] MEDS: Tamsulosin HCl 0.4 MG Capsule PO (19:45)
[2022-09-06] MEDS: LORazepam 0.5 MG Tablet PO (19:45)
[2022-09-06 21:27] VITALS: PULSE 88; RESP 16; O2SAT 92
[2022-09-07] MEDS: oxyCODONE 5 MG Tablet 10 MG PO (00:11)
[2022-09-07] MEDS: Arthritis Pain Compound 60 CLICK TUBE TOPICAL ×2 (06:26→17:43)
[2022-09-07] MEDS: QUEtiapine 25 MG Tablet PO ×2 (06:27→17:43)
[2022-09-07] MEDS: Senna/Docusate Sodium 1 Tablet 2 TABLET PO ×2 (06:27→17:43)
[2022-09-07] MEDS: Acetaminophen 500 MG Tablet 1000 MG PO ×3 (06:27→20:18)
[2022-09-07] MEDS: Polyethylene Glycol 3350 17 GM PACKET PO (06:28)
[2022-09-07] MEDS: Ensure Plus High Protein 120 ML LIQUID PO ×3 (06:41→17:43)
[2022-09-07] MEDS: Menthol/Lanolin/Calamine/Znox 113 GM Tube 1 APPLIC TOPICAL ×2 (06:41→17:43)
[2022-09-07] MEDS: Carbidopa/Levodopa 25/100 Tablet PO ×3 (08:13→17:43)
[2022-09-07] MEDS: Calcium Carbonate 500 MG Tablet PO ×2 (08:14→17:43)
[2022-09-07] MEDS: CARBIDOPA/LEVODOPA CR 50/200 Tablet PO ×2 (09:43→20:19)
[2022-09-07 14:26] VITALS: BP 99/52; PULSE 88; RESP 18; TEMP 36.6; O2SAT 97
[2022-09-07] MEDS: 0.9% Saline Lock 10 ML Syringe IV (16:22)
[2022-09-07] MEDS: LORazepam 0.5 MG Tablet PO ×2 (16:25→22:25)
[2022-09-07] MEDS: traMADol 50 MG Tablet PO ×2 (16:36→22:26)
[2022-09-07] MEDS: Tamsulosin HCl 0.4 MG Capsule PO (20:18)
[2022-09-07] MEDS: Escitalopram Oxalate 10 MG Tablet PO (20:19)
[2022-09-07 21:45] VITALS: PULSE 100; RESP 18; O2SAT 98
[2022-09-08] MEDS: oxyCODONE 5 MG Tablet 10 MG PO ×3 (01:42→19:51)
[2022-09-08] MEDS: Menthol/Lanolin/Calamine/Znox 113 GM Tube 1 APPLIC TOPICAL ×2 (06:29→17:16)
[2022-09-08] MEDS: Arthritis Pain Compound 60 CLICK TUBE TOPICAL ×2 (06:29→17:13)
[2022-09-08] MEDS: QUEtiapine 25 MG Tablet PO ×2 (06:31→17:14)
[2022-09-08] MEDS: Senna/Docusate Sodium 1 Tablet 2 TABLET PO ×2 (06:31→17:14)
[2022-09-08] MEDS: Acetaminophen 500 MG Tablet 1000 MG PO ×3 (06:32→19:54)
[2022-09-08 08:03] LABS: Absolute Lymphocyte Count 1.16 X10^3/uL (0.83-4.51); Absolute Neutrophil Count 3.1 X10^3/uL (2.0-7.7); Basophil# 0.03 X10^3/uL; Basophil% 0.6 % (0-1); Eosinophil# 0.14 X10^3/uL; Eosinophils% 2.8 % (0-5); Hematocrit 36.9 % (40-54); Lymphocyte # 1.16 X10^3/ul (0.83-4.51); Lymphocyte % 23.6 % (19-41); Mean Corp Hgb Conc 32.5 g/dL (32-36); Mean Corpuscular Hgb 30.5 pg (27.0-32.0); Mean Corpuscular Volume 93.9 fL (80-94); Mean Platelet Vol. 10.9 fl (6.2-12.0); Monocyte# 0.46 X10^3/uL; Monocyte% 9.3 % (0-10); NRBC Flagged by Analyzer 0 % (0-5); Neutrophil # 3.06 X10^3/uL (2.7-7.7); Neutrophil % 62.3 % (47-70); Platelet Count 219 K/mm3 (150-450); RBC Distribution Width CV 13.4 % (11.6-14.6); RBC Distribution Width SD 46.1 fl (35.1-43.9); Red Blood Count 3.93 M/mm3 (4.6-6.2); White Blood Count 4.9 K/mm3 (4.4-11.0)
[2022-09-08] MEDS: Carbidopa/Levodopa 25/100 Tablet PO ×3 (08:22→17:14)
[2022-09-08] MEDS: Calcium Carbonate 500 MG Tablet PO ×2 (08:22→17:13)
[2022-09-08 08:35] LABS: Anion Gap 4 (5-15); BUN 21 mg/dL (7-18); BUN/Creat Ratio 30.6 RATIO (10-20); Calcium,Total 8.4 mg/dL (8.5-10.1); Chloride 107 mmol/L (98-107); Creatinine, Serum 0.69 mg/dL (0.70-1.30); EST Glomerular Filtration Rate 119 mL/min (>60); Est Glom Filt Rate - Afr Amer 144 mL/min (>60); Estimated Creatinine Clearance 55.16 ml/min; Glucose 98 mg/dL (74-106); Potassium 3.9 mmol/L (3.5-5.1); Sodium Level 138 mmol/L (136-145)
[2022-09-08] MEDS: CARBIDOPA/LEVODOPA CR 50/200 Tablet PO ×2 (11:24→19:54)
[2022-09-08] MEDS: Ensure Plus High Protein 120 ML LIQUID PO ×3 (11:24→19:52)
[2022-09-08] MEDS: Tuberculin,Purif.prot.deriv. 50 TU/ML Vial 0.1 ML ID (11:25)
[2022-09-08 15:58] VITALS: BP 130/69; PULSE 64; RESP 17; TEMP 36.4; O2SAT 92
[2022-09-08] MEDS: Tamsulosin HCl 0.4 MG Capsule PO (19:52)
[2022-09-08] MEDS: Escitalopram Oxalate 10 MG Tablet PO (19:53)
[2022-09-08] MEDS: LORazepam 0.5 MG Tablet PO (22:24)
[2022-09-09] MEDS: Menthol/Lanolin/Calamine/Znox 113 GM Tube 1 APPLIC TOPICAL ×2 (04:07→17:41)
[2022-09-09] MEDS: Arthritis Pain Compound 60 CLICK TUBE TOPICAL ×2 (04:07→17:41)
[2022-09-09] MEDS: Senna/Docusate Sodium 1 Tablet 2 TABLET PO ×2 (04:08→17:42)
[2022-09-09] MEDS: Acetaminophen 500 MG Tablet 1000 MG PO ×3 (04:08→20:11)
[2022-09-09] MEDS: oxyCODONE 5 MG Tablet 10 MG PO (04:09)
[2022-09-09] MEDS: QUEtiapine 25 MG Tablet PO ×2 (04:09→17:42)
[2022-09-09] MEDS: Polyethylene Glycol 3350 17 GM PACKET PO (04:09)
--- NOTE | 2022-09-09 04:32 | NURSING ---
SL in right AC noted to be partially dislodged. SL removed and catheter intact. No bleeding, bruising, edema, or drainage noted. Pt tolerated well.
[2022-09-09] MEDS: Calcium Carbonate 500 MG Tablet PO ×2 (08:51→17:37)
[2022-09-09] MEDS: Carbidopa/Levodopa 25/100 Tablet PO ×3 (08:51→17:43)
[2022-09-09] MEDS: CARBIDOPA/LEVODOPA CR 50/200 Tablet PO ×2 (08:51→20:11)
[2022-09-09] MEDS: traMADol 50 MG Tablet PO (11:13)
[2022-09-09] MEDS: Ensure Plus High Protein 120 ML LIQUID PO ×3 (13:47→20:05)
[2022-09-09 16:00] VITALS: BP 91/58; PULSE 77; RESP 18; TEMP 36.3; O2SAT 98
[2022-09-09] MEDS: Tamsulosin HCl 0.4 MG Capsule PO (20:11)
[2022-09-09] MEDS: LORazepam 0.5 MG Tablet PO (20:11)
[2022-09-09] MEDS: Escitalopram Oxalate 10 MG Tablet PO (20:12)
[2022-09-09 20:17] VITALS: PULSE 52; RESP 16; O2SAT 92
[2022-09-10] MEDS: traMADol 50 MG Tablet PO (01:24)
[2022-09-10] MEDS: Arthritis Pain Compound 60 CLICK TUBE TOPICAL ×2 (05:50→17:38)
[2022-09-10] MEDS: Ensure Plus High Protein 120 ML LIQUID PO ×4 (05:50→19:32)
[2022-09-10] MEDS: Menthol/Lanolin/Calamine/Znox 113 GM Tube 1 APPLIC TOPICAL ×2 (05:50→17:29)
[2022-09-10] MEDS: QUEtiapine 25 MG Tablet PO ×2 (05:50→17:34)
[2022-09-10] MEDS: Senna/Docusate Sodium 1 Tablet 2 TABLET PO ×2 (05:50→17:33)
[2022-09-10] MEDS: Acetaminophen 500 MG Tablet 1000 MG PO ×3 (05:50→19:34)
[2022-09-10] MEDS: Polyethylene Glycol 3350 17 GM PACKET PO (05:51)
[2022-09-10] MEDS: Carbidopa/Levodopa 25/100 Tablet PO ×3 (08:08→17:34)
[2022-09-10] MEDS: Calcium Carbonate 500 MG Tablet PO ×2 (08:08→17:29)
[2022-09-10] MEDS: oxyCODONE 5 MG Tablet 10 MG PO ×3 (08:10→23:09)
[2022-09-10] MEDS: CARBIDOPA/LEVODOPA CR 50/200 Tablet PO ×2 (09:09→19:34)
--- NOTE | 2022-09-10 09:13 | NURSING ---
Tortilla Maker Note; MDS Complete
[2022-09-10 11:00] VITALS: PULSE 76; RESP 16; O2SAT 95
[2022-09-10 15:10] VITALS: BP 131/65; PULSE 85; RESP 16; TEMP 36.6; O2SAT 93
[2022-09-10] MEDS: Escitalopram Oxalate 10 MG Tablet PO (19:32)
[2022-09-10] MEDS: Tamsulosin HCl 0.4 MG Capsule PO (19:32)
[2022-09-10] MEDS: LORazepam 0.5 MG Tablet PO (19:32)
[2022-09-11] MEDS: LORazepam 0.5 MG Tablet PO (02:22)
--- NOTE | 2022-09-11 02:30 | NURSING ---
Pt very restless and impulsive throughout this shift. Brought to the nurse's station for 1:1, ambulated with 2 assist around unit to help with restlessness, and given PRN pain and anxiety medications. Interventions were minimally effective. RN aware. Note left for Dr. Burrell.
[2022-09-11] MEDS: oxyCODONE 5 MG Tablet 10 MG PO ×3 (04:34→20:24)
[2022-09-11] MEDS: Senna/Docusate Sodium 1 Tablet 2 TABLET PO ×2 (04:35→17:28)
[2022-09-11] MEDS: Polyethylene Glycol 3350 17 GM PACKET PO (04:35)
[2022-09-11] MEDS: Acetaminophen 500 MG Tablet 1000 MG PO ×3 (04:35→21:07)
[2022-09-11] MEDS: Arthritis Pain Compound 60 CLICK TUBE TOPICAL ×2 (04:36→17:20)
[2022-09-11] MEDS: QUEtiapine 25 MG Tablet PO ×2 (04:36→17:28)
[2022-09-11] MEDS: Menthol/Lanolin/Calamine/Znox 113 GM Tube 1 APPLIC TOPICAL ×2 (04:38→17:23)
[2022-09-11] MEDS: Ensure Plus High Protein 120 ML LIQUID PO ×4 (04:40→20:27)
[2022-09-11] MEDS: Calcium Carbonate 500 MG Tablet PO ×2 (08:35→17:21)
[2022-09-11] MEDS: Carbidopa/Levodopa 25/100 Tablet PO ×3 (08:35→17:27)
[2022-09-11] MEDS: CARBIDOPA/LEVODOPA CR 50/200 Tablet PO ×2 (08:39→21:06)
--- NOTE | 2022-09-11 13:27 | NURSING ---
Udpated Dr. Burrell that patient restless overnight, PRN meds not working, verbal order to increase ativen to 1mg q6hrs.
[2022-09-11 15:11] VITALS: BP 102/66; PULSE 84; RESP 16; TEMP 37.1; O2SAT 94
--- NOTE | 2022-09-11 15:16 | CASEMGMT ---
Addendum entered by Cynthia Jurado 09/12/22 10:14: Spoke with pt's about setting DC for 09/17 and [facility] Referral made via phone and [facility] for PT/OT/SN/CRESPO. NO DME needs. to transport. Plan: DC home with and caregivers 09/17, [facility] PT/OT/SN/CRESPO Original Note: Social Work Spoke with to update on Team recommendations. IDT ready for DC within the next week. agreeable to DC and will speak with the caregiver to determine availability to start. to contact with this worker with DC date. SW to facilitate DC needs. Will continue to follow. KIKA MosesW
[2022-09-11] MEDS: LORazepam 1 MG Tablet PO (17:31)
[2022-09-11 17:57] VITALS: BP 152/62; PULSE 95
[2022-09-11 21:00] VITALS: PULSE 65; RESP 14; O2SAT 98
[2022-09-11] MEDS: Tamsulosin HCl 0.4 MG Capsule PO (21:06)
[2022-09-11] MEDS: Escitalopram Oxalate 10 MG Tablet PO (21:06)
[2022-09-12] MEDS: oxyCODONE 5 MG Tablet 10 MG PO ×4 (00:46→20:22)
[2022-09-12] MEDS: LORazepam 1 MG Tablet PO ×3 (03:38→22:00)
--- NOTE | 2022-09-12 03:38 | NURSING ---
Patient restless/anxious, yelling out, 1:1/food/fluids/toileting/repositioning offered, non-pharmacologic interventions ineffective.PRN Ativan administered as ordered. Fluids accepted and tolerated well. Call light in reach, alarm on and functioning properly, bed in lowest position, personal items within reach.
[2022-09-12] MEDS: Senna/Docusate Sodium 1 Tablet 2 TABLET PO ×2 (05:01→16:43)
[2022-09-12] MEDS: Ensure Plus High Protein 120 ML LIQUID PO ×4 (05:01→21:27)
[2022-09-12] MEDS: Arthritis Pain Compound 60 CLICK TUBE TOPICAL ×2 (05:01→16:42)
[2022-09-12] MEDS: Polyethylene Glycol 3350 17 GM PACKET PO (05:01)
[2022-09-12] MEDS: Menthol/Lanolin/Calamine/Znox 113 GM Tube 1 APPLIC TOPICAL ×2 (05:02→16:45)
[2022-09-12] MEDS: QUEtiapine 25 MG Tablet PO ×2 (05:02→16:43)
[2022-09-12] MEDS: Acetaminophen 500 MG Tablet 1000 MG PO ×3 (05:02→21:25)
[2022-09-12] MEDS: Calcium Carbonate 500 MG Tablet PO ×2 (07:45→16:42)
[2022-09-12] MEDS: Carbidopa/Levodopa 25/100 Tablet PO ×3 (07:45→16:43)
[2022-09-12] MEDS: CARBIDOPA/LEVODOPA CR 50/200 Tablet PO ×2 (10:09→21:25)
--- NOTE | 2022-09-12 11:58 | MDS.RN ---
Information for the mds was obtained from review of the clinical record,interview of resident, staff, and direct observation of resident's care.
--- NOTE | 2022-09-12 13:54 | NURSING ---
THERAPY STATES R' SHOULD USE ARM SLING AGAIN SINCE HE IS MORE ALERT/COOPERATIVE. CALLED [employer]-PLACED ARM SLING TO RIGHT ARM AT THIS TIME.
[2022-09-12 14:23] VITALS: BP 121/60; PULSE 89; RESP 16; TEMP 36.6; O2SAT 98
--- NOTE | 2022-09-12 16:37 | NURSING ---
Addendum entered by Cristina Brewster 09/12/22 16:41: SITTER CALLED TO UNIT. RICA REYNOLDS NOW SITTING WITH R. Original Note: R' ANXIOUS. WALKED AROUND UNIT AGAIN X2 ASSIST WITH WHEELCHAIR BEHIND. IN R/C. WARM BLANKET PROVIDED. LEGS ELEVATED IN R/C. CHAIR ALARM IN PLACE. UNABLE TO COME IN UNTIL AFTER SHE GETS OFF WORK. 1:1 CURRENTLY.
--- NOTE | 2022-09-12 19:34 | DS.PCM_ITS ---
Providers Date of Admission: 08/31/22 Primary Care Physician: Dr. Casper Do, DO Reason For Visit: DXI R HUMEROUS, S/P FALL Diagnosis Discharge Diagnosis (1) Debility: Status: Acute Code(s): R53.81 - Other malaise (2) Dislocation of right shoulder joint: Status: Resolved Code(s): S43.004A - Unspecified dislocation of right shoulder joint, initial encounter (3) Closed right humeral fracture: Status: Acute Code(s): S42.301A - Unspecified fracture of shaft of humerus, right arm, initial e ncounter for closed fracture (4) Parkinson disease: Status: Acute Code(s): G20 - Parkinson's disease (5) Irritable bowel syndrome: Status: Acute Code(s): K58.9 - Irritable bowel syndrome without diarrhea (6) Depression: Status: Acute Code(s): F32.A - Depression, unspecified (7) Benign prostatic hyperplasia: Status: Acute Code(s): N40.0 - Benign prostatic hyperplasia without lower urinary tract symptoms (8) Visual hallucination: Status: Acute Code(s): R44.1 - Visual hallucinations (9) Parkinson's disease dementia: Status: Acute Code(s): G20 - Parkinson's disease; F02.80 - Dementia in other diseases classified elsewhere, unspecified severity, without behavioral disturbance, psychotic disturbance, mood disturbance, and anxiety Plan 77 year old male with below past medical history significant for Parkinson Disease, frequent falls hospitalized for closed right humerus fracture, no surgery recommended, but NWB, unable to be cared for at home, admitted to TCU with debility, here for rehabilitation, strengthening, prior to discharge home with . * Debility - PT/OT. * Pain - Tylenol 1000mg q8, Tramadol 50mg q6h prn pain (1-5), Oxycodone 5mg q4h prn pain (6-10). * Bowel - Miralax 17gm daily, senna/colace 2 tablets bid, MOM 30ml daily prn. * Adult immunization - Administer pneumonia vaccine, covid19 vaccine, flu vaccine as appropriate. * DVT prophylaxis - Hold, pending labs. * Parkinson Disease - Sinemet 25/100mg tid, Sinemet 50/200mg 1 tablet bid. * Nutrition - Ensure Clear 240ml bid, Ensure high protein 120ml 4x/day. * Depression - Lexapro 10mg qhs, stable chronic assisted use, GDR not recommended. 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 * BPH - Tamsulosin 0.4mg qhs. Medications at Discharge Home Medications walker #1 ea 04/14/20 carbidopa 25 mg-levodopa 100 mg tablet (Sinemet) 1 tab PO TIDCM@0900,1300,1800 parkinsons 02/24/21 carbidopa ER 50 mg-levodopa 200 mg tablet,extended release 1 tab PO BID parkinsons 12/07/21 tamsulosin 0.4 mg capsule 0.4 mg PO QHS BPH 30 days #30 caps 07/17/22 polyethylene glycol 3350 17 gram/dose oral powder (Miralax) 17 g PO DAILY CONSTIPATION 07/25/22 escitalopram oxalate 10 mg tablet 10 mg PO QHS DEPRESSION #90 tabs 08/23/22 tramadol 50 mg tablet 50 mg PO Q6H PRN Pain 08/31/22 acetaminophen 500 mg tablet 1,000 mg PO Q8 #0 tabs 09/12/22 lorazepam 1 mg tablet 1 mg PO Q6H PRN PRN Anxiety/Restlessness/Sleep 7 days #28 tabs 09/12/22 oxycodone 5 mg tablet 10 mg PO Q4H PRN PRN Pain Score 6-10 3 days #18 tabs 09/12/22 quetiapine 25 mg tablet 25 mg PO BID 30 days #60 tabs 09/12/22 Hospital Course Operations None Procedures None Summary of Care Provided Minutes Spent on Discharge: 35 Hospital Course: 77 year old male with below past medical history significant for Parkinson Disease, frequent falls hospitalized for closed right humerus fracture, no surgery recommended, but NWB, unable to be cared for at home, admitted to TCU with debility, here for rehabilitation, strengthening, prior to discharge home with . Discharge home with and caregivers 09/17/2022, [facility] PT/OT/SN/CRESPO. Consider Hospice. Physical Exam Const alert General Appearance: cooperative HEENT normocephalic Eyes PERRL and EOMs intact bilaterally Neck supple, no JVD and no carotid bruits Resp normal respiratory effort, normal air movement and clear to auscultation bilaterally Cardio regular rate and regular rhythm GI normal to inspection, nondistended, normoactive bowel sounds, non-tender and non-distended Extremity normal capillary refill General Extremity: Negative for edema Skin no rashes or lesions noted General Skin Exam: no breakdown Psych affect normal Appearance: appropriate Medical Records Data Medical Nutrition Assessment Dietitian: Malnutrition Criteria Met Start: 09/12/22 15:36 Freq: Status: Active Protocol: Document 09/12/22 15:36 [facility] (Rec: 09/12/22 15:36 [facility] [id number]) Nutrition Malnutrition Evidence of Malnutrition Exists Yes Malnutrition (severe): Acute Illness/Injury Evidenced By Suboptimal Energy Intake ( Severe),Weight Loss (Severe) Intake Problem Inadequate Oral Intake Status Inactive Problem Clinical Problem Acute Disease or Injury Related Malnutrition Etiology related to decreased appetite/ confusion/weakness Signs/Symptoms as evidenced by res meeting < 50% of est nutritional needs and 2.6% wt loss x 1 wk Status Active Problem Recommendation Dietitian Recommendations/Changes Will continue regular diet with fortified foods as ordered. Will continue 120 ml ensure plus high protein 4 times per day w/ medpass. Will add CIB w/ Breakfast, magic cup with lunch and ensure pudding w/ dinner for increased nutrition if consumed. Consider appetite stimulant to help encourage increased po intake at meals Weight / BMI Weight Weight: 60.498 kg ABG / Lab / Microbiology Data Result Diagrams: 09/08/22 07:32 09/08/22 07:32 Microbiology: Microbiology 09/06/22 17:15 Urine Catheter - Catheter Urine Culture - Final Culture exhibits no growth. 09/04/22 06:30 Nasal Secretion SARS-CoV-2 Antigen (Rapid) - Final 09/02/22 08:00 Nasal Secretion SARS-CoV-2 Antigen (Rapid) - Final D/C Instructions Discharge Diet: No restrictions Discharge Activity: Return to Normal Activity and May Shower Weight Bearing Status: No weight bearing Keep extremity elevated above heart level: Right Arm Call your doctor if you observe: Fever of 101 or Higher, Inability to urinate, Inability to have a bowel movement, Shortness of breath, Dizziness, Fainting spells, Swelling in the ankles, Chest pain and Uncontrolled pain Additional Instructions: Discharge home with and caregivers 09/17/2022, [facility] PT/OT/SN/CRESPO. Consider Hospice. Please Follow Up With: AMAURY GUTIERREZ When: As scheduled. Meaningful Use Info Meaningful Use Diagnoses (Choose all that apply): None applicable Discharge Plan Admission Admit Date/Time: 08/31/22 16:43 Primary Reason for Your Visit: Debility. Attending Provider: Christian Burrell Chi Primary Care Provider: Casper Do Instructions Additional Instructions / Restrictions: Discharge home with and caregivers 09/17/2022, [facility] PT/OT/SN/CRESPO. Consider Hospice. Discharge Orders/Prescriptions Prescriptions: New acetaminophen 500 mg Tablet 1,000 mg PO Q8 Qty: 0 0RF quetiapine 25 mg Tablet 25 mg PO BID 30 Days Qty: 60 0RF lorazepam 1 mg Tablet 1 mg PO Q6H PRN PRN (Reason: Anxiety/Restlessness/Sleep) 7 Days Qty: 28 0RF oxycodone 5 mg Tablet 10 mg PO Q4H PRN PRN (Reason: Pain Score 6-10) 3 Days Qty: 18 0RF Continued carbidopa-levodopa [Sinemet] 25-100 mg Tablet 1 tab PO TIDCM@0900,1300,1800 Rx Instructions: 1 TAB orally carbidopa-levodopa 50-200 mg Tablet Extended Release 1 tab PO BID polyethylene glycol 3350 [Miralax] 17 gram/dose Powder 17 g PO DAILY tramadol 50 mg Tablet 50 mg PO Q6H PRN (Reason: Pain) tamsulosin 0.4 mg capsule 0.4 mg PO QHS 30 Days Qty: 30 3RF escitalopram oxalate 10 mg tablet 10 mg PO QHS Qty: 90 0RF Discontinued food supplemt, lactose-reduced Liquid 240 ml PO BID acetaminophen 500 mg Tablet 1,000 mg PO Q8 PRN (Reason: fever or pain) Qty: 20 0RF tramadol 50 mg tablet 50 mg PO Q6H MDD 5 a day PRN (Reason: pain) 3 Days Qty: 12 0RF Ensure Plus High Protein 0.08 gram-1.5 kcal/mL liquid 120 ml PO 4X/DAY quetiapine 25 mg tablet 25 mg PO QHS Qty: 30 1RF Hold Instructions: Resume on 08/28/22. No Action (DME) walker Qty: 1 0RF Rx Instructions: Walker with wheels, brakes, and seat Referrals / Follow Up: Casper Do DO [Primary Care Provider] - Disposition Disposition (needs filled in before D/C Order can be placed): Home Health Service
[2022-09-12] MEDS: Tamsulosin HCl 0.4 MG Capsule PO (21:24)
[2022-09-12] MEDS: Escitalopram Oxalate 10 MG Tablet PO (21:25)
[2022-09-13] MEDS: oxyCODONE 5 MG Tablet 10 MG PO (02:29)
[2022-09-13] MEDS: Polyethylene Glycol 3350 17 GM PACKET PO (05:53)
[2022-09-13] MEDS: Senna/Docusate Sodium 1 Tablet 2 TABLET PO ×2 (05:53→16:45)
[2022-09-13] MEDS: Ensure Plus High Protein 120 ML LIQUID PO ×3 (05:54→22:59)
[2022-09-13] MEDS: Arthritis Pain Compound 60 CLICK TUBE TOPICAL ×2 (05:54→16:44)
[2022-09-13] MEDS: QUEtiapine 25 MG Tablet PO ×2 (05:54→16:45)
[2022-09-13] MEDS: Menthol/Lanolin/Calamine/Znox 113 GM Tube 1 APPLIC TOPICAL ×2 (05:54→16:51)
[2022-09-13] MEDS: Acetaminophen 500 MG Tablet 1000 MG PO ×3 (05:54→22:56)
--- NOTE | 2022-09-13 06:00 | NURSING ---
NEW ONSET NON-PRODUCTIVE COUGH , EXPIRATORY WHEEZES, AFEBRILE. WRITTEN COMMUNICATION LEFT FOR DR. WASHINGTON REVIEW THIS AM
[2022-09-13 06:05] VITALS: PULSE 62; RESP 20; TEMP 36.7; O2SAT 96
[2022-09-13] MEDS: LORazepam 1 MG Tablet PO ×2 (06:13→17:49)
--- NOTE | 2022-09-13 06:15 | NURSING ---
Addendum entered by Jeffery Puente 09/13/22 06:41: Presents in bed with eyes closed, no restless/agitation observed at this time. Resps even and unlabored. Call light in reach. Alarm in place per order and functioning properly to alert staff of unassisted transfers Original Note: Patient yelling out at this time, restless/agitated/anxious yelling loudly help me! help me! the little boys have cuts on their faces. 1:1 provided, non-pharmacologic interventions ineffective. PRN ativan administered as ordered. Call light in reach. Bed in lowest position. Positioned for comfort. Alarm on per order and functioning properly
[2022-09-13] MEDS: Calcium Carbonate 500 MG Tablet PO ×2 (09:11→16:45)
[2022-09-13] MEDS: Carbidopa/Levodopa 25/100 Tablet PO ×3 (09:11→16:44)
[2022-09-13] MEDS: CARBIDOPA/LEVODOPA CR 50/200 Tablet PO ×2 (10:44→22:58)
[2022-09-13] MEDS: traMADol 50 MG Tablet PO ×2 (15:15→23:10)
[2022-09-13 15:27] VITALS: BP 108/66; PULSE 83; RESP 18; TEMP 36.4; O2SAT 91
[2022-09-13] MEDS: Escitalopram Oxalate 10 MG Tablet PO (22:57)
[2022-09-13] MEDS: Tamsulosin HCl 0.4 MG Capsule PO (22:58)
[2022-09-14] MEDS: oxyCODONE 5 MG Tablet 10 MG PO ×2 (03:33→14:35)
[2022-09-14] MEDS: LORazepam 1 MG Tablet PO ×3 (03:54→23:48)
[2022-09-14] MEDS: Menthol/Lanolin/Calamine/Znox 113 GM Tube 1 APPLIC TOPICAL ×2 (07:08→17:34)
[2022-09-14] MEDS: Arthritis Pain Compound 60 CLICK TUBE TOPICAL ×2 (07:08→17:25)
[2022-09-14] MEDS: Ensure Plus High Protein 120 ML LIQUID PO ×4 (07:08→21:57)
[2022-09-14] MEDS: Senna/Docusate Sodium 1 Tablet 2 TABLET PO ×2 (07:09→17:25)
[2022-09-14] MEDS: Polyethylene Glycol 3350 17 GM PACKET PO (07:09)
[2022-09-14] MEDS: Acetaminophen 500 MG Tablet 1000 MG PO ×3 (07:10→21:59)
[2022-09-14] MEDS: QUEtiapine 25 MG Tablet PO ×2 (07:10→17:25)
[2022-09-14] MEDS: Calcium Carbonate 500 MG Tablet PO ×2 (08:27→17:25)
[2022-09-14] MEDS: Carbidopa/Levodopa 25/100 Tablet PO ×3 (08:28→17:25)
[2022-09-14] MEDS: CARBIDOPA/LEVODOPA CR 50/200 Tablet PO ×2 (09:44→21:58)
[2022-09-14 10:00] VITALS: PULSE 78; RESP 16; O2SAT 95
--- NOTE | 2022-09-14 10:44 | CASEMGMT ---
Social Work Staff assessment completed for MDS assessment. Cynthia Jurado, ACT ENGLISH TUTOR KOHINOOR OPERATOR
[2022-09-14 14:54] VITALS: PULSE 77; RESP 16; TEMP 36.6; O2SAT 96
[2022-09-14 15:36] VITALS: BP 120/80
[2022-09-14] MEDS: Escitalopram Oxalate 10 MG Tablet PO (21:57)
[2022-09-14] MEDS: Tamsulosin HCl 0.4 MG Capsule PO (21:59)
[2022-09-14] MEDS: traMADol 50 MG Tablet PO (21:59)
[2022-09-15] MEDS: oxyCODONE 5 MG Tablet 10 MG PO ×2 (03:49→10:05)
[2022-09-15 03:52] VITALS: BP 143/93
[2022-09-15] MEDS: Acetaminophen 500 MG Tablet 1000 MG PO ×3 (06:30→22:18)
[2022-09-15] MEDS: Polyethylene Glycol 3350 17 GM PACKET PO (06:30)
[2022-09-15] MEDS: Arthritis Pain Compound 60 CLICK TUBE TOPICAL ×2 (06:30→17:43)
[2022-09-15] MEDS: QUEtiapine 25 MG Tablet PO ×2 (06:30→17:45)
[2022-09-15] MEDS: Senna/Docusate Sodium 1 Tablet 2 TABLET PO ×2 (06:30→17:43)
[2022-09-15] MEDS: Menthol/Lanolin/Calamine/Znox 113 GM Tube 1 APPLIC TOPICAL ×2 (06:31→17:44)
[2022-09-15] MEDS: Ensure Plus High Protein 120 ML LIQUID PO ×4 (06:35→22:16)
[2022-09-15 08:29] LABS: Absolute Lymphocyte Count 1.64 X10^3/uL (0.83-4.51); Absolute Neutrophil Count 4.9 X10^3/uL (2.0-7.7); Basophil# 0.06 X10^3/uL; Basophil% 0.8 % (0-1); Eosinophil# 0.26 X10^3/uL; Eosinophils% 3.4 % (0-5); Hematocrit 42.6 % (40-54); Hemoglobin 14.1 g/dL (13.0-16.5); Lymphocyte # 1.64 X10^3/ul (0.83-4.51); Lymphocyte % 21.7 % (19-41); Mean Corp Hgb Conc 33.1 g/dL (32-36); Mean Corpuscular Hgb 31.1 pg (27.0-32.0); Mean Platelet Vol. 10.3 fl (6.2-12.0); Monocyte# 0.58 X10^3/uL; Monocyte% 7.7 % (0-10); NRBC Flagged by Analyzer 0 % (0-5); Neutrophil # 4.89 X10^3/uL (2.7-7.7); Neutrophil % 64.8 % (47-70); Platelet Count 249 K/mm3 (150-450); RBC Distribution Width CV 13.6 % (11.6-14.6); RBC Distribution Width SD 47.2 fl (35.1-43.9); Red Blood Count 4.53 M/mm3 (4.6-6.2); White Blood Count 7.6 K/mm3 (4.4-11.0)
[2022-09-15 09:05] LABS: Anion Gap 4 (5-15); BUN 21 mg/dL (7-18); BUN/Creat Ratio 26.9 RATIO (10-20); Calcium,Total 9.2 mg/dL (8.5-10.1); Chloride 111 mmol/L (98-107); Creatinine, Serum 0.78 mg/dL (0.70-1.30); EST Glomerular Filtration Rate 103 mL/min (>60); Est Glom Filt Rate - Afr Amer 124 mL/min (>60); Estimated Creatinine Clearance 53.78 ml/min; Glucose 105 mg/dL (74-106); Potassium 4.2 mmol/L (3.5-5.1); Sodium Level 141 mmol/L (136-145)
[2022-09-15] MEDS: Carbidopa/Levodopa 25/100 Tablet PO ×3 (10:08→17:42)
[2022-09-15] MEDS: Calcium Carbonate 500 MG Tablet PO ×2 (10:11→17:43)
[2022-09-15] MEDS: CARBIDOPA/LEVODOPA CR 50/200 Tablet PO ×2 (12:06→22:19)
[2022-09-15 13:39] VITALS: BP 114/77; PULSE 77; RESP 14; TEMP 36; O2SAT 94
[2022-09-15] MEDS: traMADol 50 MG Tablet PO (13:54)
[2022-09-15 19:37] VITALS: PULSE 95; RESP 19; O2SAT 94
[2022-09-15] MEDS: Tamsulosin HCl 0.4 MG Capsule PO (22:17)
[2022-09-15] MEDS: Escitalopram Oxalate 10 MG Tablet PO (22:17)
[2022-09-16] MEDS: Arthritis Pain Compound 60 CLICK TUBE TOPICAL ×2 (05:32→17:30)
[2022-09-16] MEDS: Menthol/Lanolin/Calamine/Znox 113 GM Tube 1 APPLIC TOPICAL ×2 (05:32→17:31)
[2022-09-16] MEDS: Ensure Plus High Protein 120 ML LIQUID PO ×4 (05:32→19:56)
[2022-09-16] MEDS: Polyethylene Glycol 3350 17 GM PACKET PO (05:33)
[2022-09-16] MEDS: QUEtiapine 25 MG Tablet PO ×2 (05:33→17:32)
[2022-09-16] MEDS: Senna/Docusate Sodium 1 Tablet 2 TABLET PO ×2 (05:33→17:31)
[2022-09-16] MEDS: Acetaminophen 500 MG Tablet 1000 MG PO ×3 (05:34→19:57)
[2022-09-16] MEDS: Calcium Carbonate 500 MG Tablet PO ×2 (10:45→17:30)
[2022-09-16] MEDS: Carbidopa/Levodopa 25/100 Tablet PO ×3 (10:45→17:32)
[2022-09-16] MEDS: CARBIDOPA/LEVODOPA CR 50/200 Tablet PO ×2 (11:15→19:57)
--- NOTE | 2022-09-16 11:28 | NURSING ---
Family concerned that patient not acting himself, concerned he has UTI and want to make sure he doesn't before discharge tomorrow. Updated Dr Burrell, order for UA.
[2022-09-16 14:04] LABS: Bacteria 0 SEEN /hpf (None Seen); Mucous, Urine 0 SEEN /hpf (<or=2+); Red Blood Cells-Urine 0 SEEN /hpf (0-5); Squamous Epithelial Cells - UA 0 SEEN /hpf (0-5); White Blood Cells 0 SEEN /hpf (0-5)
[2022-09-16 14:05] LABS: Color, Urine Yellow (Yellow); Glucose, Dipstick Normal (Normal); Ketone-Dipstick 15 mg/dl (Negative); Leukocyte Esterase-Dipstick 25 /ul (Negative); Nitrite-Dipstick Negative (Negative); Occult Blood-Urine Negative /ul (Negative); Protein-Dipstick 15 mg/dl (Negative); Urine Bilirubin Dipstick Negative (Negative); Urine Clarity Clear (Clear); Urine Urobilinogen 1 mg/dl (Normal)
[2022-09-16 15:22] VITALS: BP 96/62; PULSE 90; RESP 20; TEMP 36.3; O2SAT 95
[2022-09-16] MEDS: Tamsulosin HCl 0.4 MG Capsule PO (19:57)
[2022-09-16] MEDS: Escitalopram Oxalate 10 MG Tablet PO (19:57)
[2022-09-16] MEDS: oxyCODONE 5 MG Tablet 10 MG PO (20:01)
[2022-09-16 20:07] VITALS: O2SAT 93
[2022-09-17] MEDS: Acetaminophen 500 MG Tablet 1000 MG PO (05:25)
[2022-09-17] MEDS: Polyethylene Glycol 3350 17 GM PACKET PO (05:25)
[2022-09-17] MEDS: Ensure Plus High Protein 120 ML LIQUID PO (05:25)
[2022-09-17] MEDS: QUEtiapine 25 MG Tablet PO (05:25)
[2022-09-17] MEDS: Senna/Docusate Sodium 1 Tablet 2 TABLET PO (05:25)
[2022-09-17] MEDS: Menthol/Lanolin/Calamine/Znox 113 GM Tube 1 APPLIC TOPICAL (05:26)
[2022-09-17] MEDS: Arthritis Pain Compound 60 CLICK TUBE TOPICAL (05:26)
[2022-09-17] MEDS: Calcium Carbonate 500 MG Tablet PO (08:40)
[2022-09-17] MEDS: CARBIDOPA/LEVODOPA CR 50/200 Tablet PO (08:40)
[2022-09-17] MEDS: Carbidopa/Levodopa 25/100 Tablet PO (08:40)
[2022-09-17] MEDS: oxyCODONE 5 MG Tablet 10 MG PO (08:43)
[2022-09-17 09:16] VITALS: PULSE 82; RESP 16; O2SAT 95
[2022-09-17 11:23] VITALS: BP 90/70; PULSE 91; RESP 16; TEMP 36.6; O2SAT 94
== END 2022-09-17 11:10 | disposition home health service (06) | DRG 561 ==
PROVIDERS: Admitting Provider Family Medicine Geriatric Medicine; PCP Family Medicine; Visit Provider Family Medicine Geriatric Medicine
DX: S42.301D Unspecified fracture of shaft of humerus, right arm, subsequent encounter for fracture with routine healing (principal); F02.80 Dementia in other diseases classified elsewhere, unspecified severity, without behavioral disturbance, psychotic disturbance, mood disturbance, and anxiety; G20 Parkinson's disease; J44.9 Chronic obstructive pulmonary disease, unspecified; K58.9 Irritable bowel syndrome, unspecified; K21.9 Gastro-esophageal reflux disease without esophagitis; I25.10 Atherosclerotic heart disease of native coronary artery without angina pectoris; W19.XXXD Unspecified fall, subsequent encounter; F32.A Depression, unspecified; Z87.891 Personal history of nicotine dependence; N40.0 Benign prostatic hyperplasia without lower urinary tract symptoms; Z79.899 Other long term (current) drug therapy; Z23 Encounter for immunization
CPT/HCPCS: 0124A; 36415; 80048; 81001; 85025; 87086; 87426; 87633; 87635; 87811; 91312; 97110; 97116; 97163; 97166; 97530; 97535; 97802; J7030; A4216; U0003; U0005

== ENCOUNTER 2022-09-18 15:08 | Inpatient (IN) | payer MEDICARE, OTHER, SELFPAY ==
[2022-09-18] VITALS (7 sets, daily range): BP systolic 97–148; BP diastolic 69–114; PULSE 73–87; RESP 15–20; TEMP 35.7–36.6; O2SAT 94–100; BMI 20.3; BMI 20.5
--- NOTE | 2022-09-18 15:36 | EKG12_ITS ---
Test Reason : SOB Blood Pressure : / mmHG Vent. Rate : 077 BPM Atrial Rate : 077 BPM P-R Int : 164 ms QRS Dur : 068 ms QT Int : 376 ms P-R-T Axes : 033 -66 021 degrees QTc Int : 425 ms Sinus rhythm with occasional Premature ventricular complexes Left axis deviation Inferior infarct , age undetermined Abnormal ECG Confirmed by BUFFY SKINNER, JAIDEN ([id number]), scientific publications editor HENRY UP ([id number]) on 09/19/2022 11:56:44 AM Referred By: Confirmed By:JAIDEN BAER MD
--- NOTE | 2022-09-18 15:36 | CT_ITS ---
STUDY: CT BRAIN WITHOUT CONTRAST REASON FOR EXAM: Male, 77 years old. confusion RADIATION DOSAGE (If Supplied By Facility): CTDIvol = ( 44.99 ) mGy, DLP = ( 638.07 ) mGycm TECHNIQUE: Transaxial CT imaging of the brain was performed without administration of intravenous contrast material. Individualized dose optimization techniques were used for this CT. COMPARISON: 08/30/2022 FINDINGS: Normal soft tissue structures. Normal calvarium. There is mild cerebral atrophy with widening of the extra-axial spaces and ventricular dilatation. There are areas of decreased attenuation within the white matter tracts of the supratentorial brain, consistent with microvascular disease changes. Normal basal ganglia and thalami. Normal brainstem. Normal cerebellum. There is no intracranial hemorrhage. There are no findings of an acute ischemic infarction. Normal visualized paranasal sinuses. CT/Brain/Head without Contrast IMPRESSION: Chronic involutional changes of the brain. Electronically Signed: Zuhair Bonner MD at 16:43 EST ,
--- NOTE | 2022-09-18 15:38 | EX.ED.DYSGE1 ---
HPI History of Present Illness Chief Complaint: Shortness of Breath Detail of Chief Complaint: Generalized weakness and confusion Informant: spouse/S.O. Narrative Narrative: Patient presents to the emergency department from his primary care physician's office for concern about generalized weakness and need for placement. Patient apparently was being seen for a follow-up visit after being admitted to this hospital for rehab after falling and dislocating his right shoulder. Patient had a low blood pressure in the office of 60/40 and was hard to arouse so he was referred to the emergency department. Patient apparently takes oxycodone cotton twice a day. states that patient having hard time caring for himself and she cannot handle him at home. He is having a hard time walking. Patient does have history of Parkinson's and some dementia. He has had decreased p.o. intake. 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 Benign prostate hyperplasia Benign prostate hyperplasia Cervicalgia Chronic obstructive pulmonary disease Chronic pain Colitis COPD (chronic obstructive pulmonary disease) Coronary artery disease Coronary artery disease Debility Debility Debility Dementia Diarrhea Fecal incontinence Former smoker Frequent falls Generalized weakness Herniation of nucleus pulposus Hypokalemia IBS (irritable bowel syndrome) Parkinson disease Parkinson disease Parkinson's disease Parkinson's disease dementia Parkinson's disease dementia Raynauds disease Scoliosis deformity of spine Tobacco user Urinary frequency Urine incontinence Home Medications walker #1 ea 04/14/20 [Rx Last Taken Unknown] carbidopa 25 mg-levodopa 100 mg tablet (Sinemet) 1 tab PO TIDCM@0900,1300,1800 parkinsons 02/24/21 [History Last Taken 09/06/22 08:40] carbidopa ER 50 mg-levodopa 200 mg tablet,extended release 1 tab PO 0900,2200 parkinsons 12/07/21 [History Last Taken 09/17/22 08:40] tamsulosin 0.4 mg capsule 0.4 mg PO QHS BPH 30 days #30 caps 07/17/22 [Rx Last Taken 09/16/22 19:57] polyethylene glycol 3350 17 gram/dose oral powder (Miralax) 17 g PO DAILY CONSTIPATION 07/25/22 [History Last Taken 09/17/22 05:25] escitalopram oxalate 10 mg tablet 10 mg PO QHS DEPRESSION #90 tabs 08/23/22 [Rx Last Taken 09/16/22 19:57] oxycodone 5 mg tablet 10 mg PO Q4H PRN PRN Pain Score 6-10 3 days #18 tabs 09/12/22 [Rx Last Taken 09/17/22 08:43] quetiapine 25 mg tablet 25 mg PO BID 30 days #60 tabs 09/12/22 [Rx Last Taken 09/17/22 05:25] acetaminophen 500 mg tablet 1,000 mg PO Q8H PAIN 09/18/22 [History Last Taken 09/17/22 05:25] calcium carbonate 500 mg calcium (1,250 mg) chewable tablet 500 mg PO BIDCM 09/18/22 [History Last Taken 09/17/22 08:40] food supplemt, lactose-reduced 0.08 gram-1.5 kcal/mL oral liquid (Ensure Plus High Protein) 120 ml PO 4X/DAY SUPPLEMENT 09/18/22 [History Last Taken 09/17/22 05:25] lorazepam 1 mg tablet 1 mg PO Q6H PRN ANXIETY/RESTLESSNESS/SLEEP 09/18/22 [History Last Taken 09/14/22 23:48] menthol 0.44 %-zinc oxide 20.6 % topical ointment (Calmoseptine) 1 applic topical BID 09/18/22 [History Last Taken 09/17/22 05:26] sennosides 8.6 mg-docusate sodium 50 mg tablet (Senna Plus) 2 tab-cap PO BID 09/18/22 [History Last Taken 09/17/22 05:25] Allergy/AdvReac Type Severity Reaction Status Date / Time pregabalin [From Lyrica] AdvReac hallucinati Verified 09/18/22 15:09 ons Family History Brother Alcoholism Father Heart disease Myocardial infarction Uncle Heart disease Myocardial infarction Grandfather Heart disease Myocardial infarction Mother Heart disease Surgical History History of cataract surgery History of colonoscopy History of left hip hemiarthroplasty History of tonsillectomy Social History household members: spouse Smoking Status: Former smoker how long ago did patient quit smokin alcohol intake: never substance use type: does not use what type of physical activity do you participate in: walking frequency: daily ROS ROS ED ROS Narrative History comes from his primary care physician and who is with him. Patient really cannot give me much history. Review of Systems ROS Unobtainable: due to mental condition and other Constitutional Constitutional ED: Reports lethargy; Denies chills, fever(s), sweats or weight loss Eyes Eyes: Denies blurry vision, change in vision or diplopia ENT ENT ED: Denies rhinorrhea or sore throat Cardiovascular Cardiovascular: Denies chest pain, orthopnea or racing heartbeat Respiratory/Chest Respiratory/Chest: Reports dyspnea and dyspnea on exertion; Denies cough, orthopnea or sputum Gastrointestinal Gastrointestinal: Denies abdominal pain, diarrhea, nausea or vomiting Genitourinary Genitourinary ED: Denies dysuria, hematuria or urinary frequency Musculoskeletal Musculoskeletal: Denies arthralgias, back pain, myalgias or neck pain Integumentary Denies abscess, Abrasions or rash Neurologic Neurologic: Denies headache(s) or weakness Psychiatric Psychiatric: Denies anxiety, depression or suicidal thoughts Endocrine Endocrinology: Denies polydipsia, polyphagia or polyuria Hematologic/Lymphatic Hematologic/Lymphatic: Denies easy bleeding, easy bruising or lymphadenopathy Allergic/Immunologic Allergic/Immunologic ED: Denies mouth swelling, tongue swelling or urticaria EXAM Physical Exam Const Vital Signs: 09/18/22 15:09 09/18/22 15:24 09/18/22 15:24 Temperature 96.3 F L Temperature Source Temporal Pulse Rate 76 76 Respiratory Rate 15 18 Respiratory Effort Normal Respiratory Depth Normal Respiratory Pattern Normal Blood Pressure 97/69 128/77 H Blood Pressure Mean 78 94 Pulse Ox 98 98 Oxygen Delivery Method Room Air Room Air Positive well nourished and well developed General Appearance ED: well developed and NAD HEENT Reports TM's clear and moist mucous membranes normocephalic and atraumatic; Negative for trauma or tenderness Tympanic Membrane ED: Yes TM's clear Eyes PERRL and EOMs intact bilaterally General Eye ED: Negative for pale conjunctiva or scleral icterus Neck no lymphadenopathy, supple and no JVD General: Negative for tenderness Chest Wall inspection of chest normal and palpation of chest normal Chest: Negative for tenderness Resp normal respiratory effort and clear to auscultation bilaterally Effort and Inspection: Negative for respiratory distress or pain with movement Auscultation: Negative for rhonchi, wheezes or diminished lung sounds Cardio regular rate, regular rhythm, S1 normal heart sound, S2 normal heart sound and no murmurs Peripheral Pulses: pulses 2+ throughout GI normal to inspection, nondistended, normoactive bowel sounds, soft to palpation, non-tender, non-distended and no masses Back/Spine no CVA tenderness and no thoracic nor lumbar tenderness Extremity normal to inspection General Extremety ED: Negative for edema General Extremity: Negative for edema Neuro oriented x3, CN's II-XII intact bilaterally, no sensory deficits noted and gait normal Sensorium / Orientation: awake, alert, oriented to person, oriented to place and oriented to time Motor Exam: strength 5/5 throughout and strength abnormal Psych mental status grossly normal Skin no rashes or lesions noted and no wounds MDM MDM MDM Narrative Medical decision making narrative: IV line established on arrival. Patient was placed on a linen aide. CBC with differential obtained was unremarkable. Chemistries unremarkable. CT scan of the brain without contrast on my interpretation did not appreciate any acute infarct or bleed official report from radiology pending however. Urinalysis ordered and pending. Case will be discussed with hospitalist evaluate patient for admission for generalized weakness and failure to thrive and possible ECF placement. Lab Data Attestation: I reviewed the patient's lab results. Labs: Laboratory Results - last 24 hr 09/18/22 09/18/22 15:45 15:45 WBC 9.4 RBC 4.54 L Hgb 13.9 Hct 44.0 MCV 96.9 H MCH 30.6 MCHC 31.6 L RDW Std Deviation 48.5 H RDW Coeff of Boni 13.6 Plt Count 231 MPV 10.8 Immature Gran % (Auto) 1.700 H Neut % (Auto) 65.8 Lymph % (Auto) 17.8 L [place] % (Auto) 9.7 Eos % (Auto) 4.1 Baso % (Auto) 0.9 Absolute Neuts (auto) 6.2 Absolute Lymphs (auto) 1.67 Nucleated RBC % 0 Sodium 141 Potassium 4.2 Chloride 106 Carbon Dioxide 29.0 Anion Gap 6 BUN 27 H Creatinine 0.99 Estim Creat Clear Calc 52.94 Est GFR (MDRD) Af Amer 95 Est GFR (MDRD) Non-Af 78 BUN/Creatinine Ratio 27.3 H Glucose 90 Calcium 9.1 Troponin I High Sens 10 EKG Initial EKG: Attestation: I personally reviewed and interpreted this EKG as follows: Comments: Sinus rhythm with a rate of 77 bpm with occasional PVCs Discharge Plan Triage Chief Complaint: Shortness of Breath ED Provider: Ricky Foy Dx/Rx/DC Orders Clinical Impression: Weakness, Adult failure to thrive, History of Parkinson's disease Prescriptions: No Action (DME) walker Qty: 1 0RF Rx Instructions: Walker with wheels, brakes, and seat carbidopa-levodopa [Sinemet] 25-100 mg Tablet 1 tab PO TIDCM@0900,1300,1800 carbidopa-levodopa 50-200 mg Tablet Extended Release 1 tab PO 0900,2200 polyethylene glycol 3350 [Miralax] 17 gram/dose Powder 17 g PO DAILY quetiapine 25 mg Tablet 25 mg PO BID 30 Days Qty: 60 0RF oxycodone 5 mg Tablet 10 mg PO Q4H PRN PRN (Reason: Pain Score 6-10) 3 Days Qty: 18 0RF sennosides-docusate sodium [Senna Plus] 8.6-50 mg Tablet 2 tab-cap PO BID calcium carbonate [Tums 500] 500 mg calcium (1,250 mg) Tablet,Chewable 500 mg PO BIDCM menthol-zinc oxide [Calmoseptine] 0.44-20.6 % Ointment 1 applic TOPICAL BID Ensure Plus High Protein 0.08 gram-1.5 kcal/mL Liquid 120 ml PO 4X/DAY acetaminophen 500 mg tablet 1,000 mg PO Q8H lorazepam 1 mg tablet 1 mg PO Q6H PRN (Reason: ANXIETY/RESTLESSNESS/SLEEP) tamsulosin 0.4 mg capsule 0.4 mg PO QHS 30 Days Qty: 30 3RF escitalopram oxalate 10 mg tablet 10 mg PO QHS Qty: 90 0RF Primary Care Provider: Casper Do Referrals: Casper Do DO [Primary Care Provider] - Disposition Disposition: [facility]
[2022-09-18] MEDS: 0.9% Normal Saline 1,000 ML 1000 ML IV (15:46)
[2022-09-18 15:58] LABS: Absolute Lymphocyte Count 1.67 X10^3/uL (0.83-4.51); Absolute Neutrophil Count 6.2 X10^3/uL (2.0-7.7); Basophil# 0.08 X10^3/uL; Basophil% 0.9 % (0-1); Eosinophil# 0.38 X10^3/uL; Eosinophils% 4.1 % (0-5); Hemoglobin 13.9 g/dL (13.0-16.5); Lymphocyte # 1.67 X10^3/ul (0.83-4.51); Lymphocyte % 17.8 % (19-41); Mean Corp Hgb Conc 31.6 g/dL (32-36); Mean Corpuscular Hgb 30.6 pg (27.0-32.0); Mean Corpuscular Volume 96.9 fL (80-94); Mean Platelet Vol. 10.8 fl (6.2-12.0); Monocyte# 0.91 X10^3/uL; Monocyte% 9.7 % (0-10); NRBC Flagged by Analyzer 0 % (0-5); Neutrophil # 6.17 X10^3/uL (2.7-7.7); Neutrophil % 65.8 % (47-70); Platelet Count 231 K/mm3 (150-450); RBC Distribution Width CV 13.6 % (11.6-14.6); RBC Distribution Width SD 48.5 fl (35.1-43.9); Red Blood Count 4.54 M/mm3 (4.6-6.2); White Blood Count 9.4 K/mm3 (4.4-11.0)
[2022-09-18 16:14] LABS: Anion Gap 6 (5-15); BUN 27 mg/dL (7-18); BUN/Creat Ratio 27.3 RATIO (10-20); Calcium,Total 9.1 mg/dL (8.5-10.1); Chloride 106 mmol/L (98-107); Creatinine, Serum 0.99 mg/dL (0.70-1.30); EST Glomerular Filtration Rate 78 mL/min (>60); Est Glom Filt Rate - Afr Amer 95 mL/min (>60); Estimated Creatinine Clearance 52.94 ml/min; Glucose 90 mg/dL (74-106); Potassium 4.2 mmol/L (3.5-5.1); Sodium Level 141 mmol/L (136-145); Troponin-I HS 10 pg/mL (3.0-78.0)
--- NOTE | 2022-09-18 16:54 | PCM.HP.STD ---
HPI - General General Date of Admission: 09/18/22 Date of Service: 09/18/22 Chief Complaint: Generalized weakness/acute mental status change HPI Narrative ZUHAIR HANSON, is a 77 M who presented to the emergency department at [facility] on 09/18/2022 with shortness of breath and confusion. The patient had recent admission here and was discharged on 08/31/2022 to skilled facility from which she was discharged on 09/17/2022. He went to his follow-up appointment at his primary care physician's office today and upon arrival had a low blood pressure of 60/40 in the office and therefore he was a referred to the emergency department. The patient has been on oxycodone cotton twice daily. His reports to the emergency department physician that she has been having trouble caring for him as he is not able to help her much at all at home. She was not present at the time of my evaluation so I am dependent on the ER physician's history of what occurred prior to arrival. At the time of my evaluation the patient will wake up to sternal rub and answers a few questions but then falls quickly back to sleep. He does have history of recurrent urinary tract infections and a UA was pending. The patient will need placement at the time of discharge. Vital signs at the time of presentation demonstrated a temperature of 97.5, heart rate 69, blood pressure 62/48 with repeat at 128/77, respiratory rate 18 with an oxygen saturation 98% on room air. CBC is overall unremarkable. We obtained a blood gas and his ABG was 7.39/PCO2 of 39/PO2 of 71 giving a sat of 94%. ABG was done on room air. His chemistry panel showed mild dehydration with an elevated BUN at 27 but was otherwise unremarkable. Initial troponin was 10. EKG shows no acute ischemic changes, sinus rhythm and normal intervals. A CT of his brain demonstrated chronic involutional changes but no acute findings. Given his mental status and decreased ability for his or himself to care for him at home he will be admitted with further work-up for his mental status and probable need for ECF at discharge. 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 Benign prostate hyperplasia Benign prostate hyperplasia Cervicalgia Chronic obstructive pulmonary disease Chronic pain Colitis COPD (chronic obstructive pulmonary disease) Coronary artery disease Coronary artery disease Debility Debility Debility Dementia Diarrhea Fecal incontinence Former smoker Frequent falls Generalized weakness Herniation of nucleus pulposus Hypokalemia IBS (irritable bowel syndrome) Parkinson disease Parkinson disease Parkinson's disease Parkinson's disease dementia Parkinson's disease dementia Raynauds disease Scoliosis deformity of spine Tobacco user Urinary frequency Urine incontinence Home Medications walker #1 ea 04/14/20 [Rx Last Taken Unknown] carbidopa 25 mg-levodopa 100 mg tablet (Sinemet) 1 tab PO TIDCM@0900,1300,1800 parkinsons 02/24/21 [History Last Taken 09/18/22 09:00] carbidopa ER 50 mg-levodopa 200 mg tablet,extended release 1 tab PO 0900,2200 parkinsons 12/07/21 [History Last Taken 09/18/22 13:00] tamsulosin 0.4 mg capsule 0.4 mg PO QHS BPH 30 days #30 caps 07/17/22 [Rx Last Taken 09/16/22 19:57] polyethylene glycol 3350 17 gram/dose oral powder (Miralax) 17 g PO DAILY CONSTIPATION 07/25/22 [History Last Taken 09/17/22 05:25] escitalopram oxalate 10 mg tablet 10 mg PO QHS DEPRESSION #90 tabs 08/23/22 [Rx Last Taken 09/16/22 19:57] oxycodone 5 mg tablet 10 mg PO Q4H PRN PRN Pain Score 6-10 3 days #18 tabs 09/12/22 [Rx Last Taken 09/18/22 13:00] quetiapine 25 mg tablet 25 mg PO BID 30 days #60 tabs 09/12/22 [Rx Last Taken 09/17/22 05:25] acetaminophen 500 mg tablet 1,000 mg PO Q8H PAIN 09/18/22 [History Last Taken 09/17/22 05:25] calcium carbonate 500 mg calcium (1,250 mg) chewable tablet 500 mg PO BIDCM 09/18/22 [History Last Taken 09/17/22 08:40] food supplemt, lactose-reduced 0.08 gram-1.5 kcal/mL oral liquid (Ensure Plus High Protein) 120 ml PO 4X/DAY SUPPLEMENT 09/18/22 [History Last Taken 09/17/22 05:25] lorazepam 1 mg tablet 1 mg PO Q6H PRN ANXIETY/RESTLESSNESS/SLEEP 09/18/22 [History Last Taken 09/18/22 13:00] menthol 0.44 %-zinc oxide 20.6 % topical ointment (Calmoseptine) 1 applic topical BID 09/18/22 [History Last Taken 09/17/22 05:26] sennosides 8.6 mg-docusate sodium 50 mg tablet (Senna Plus) 2 tab-cap PO BID 09/18/22 [History Last Taken 09/17/22 05:25] Allergy/AdvReac Type Severity Reaction Status Date / Time pregabalin [From Lyrica] AdvReac hallucinati Verified 09/18/22 15:09 ons Family History Brother Alcoholism Father Heart disease Myocardial infarction Uncle Heart disease Myocardial infarction Grandfather Heart disease Myocardial infarction Mother Heart disease Surgical History History of cataract surgery History of colonoscopy History of left hip hemiarthroplasty History of tonsillectomy Social History household members: spouse Smoking Status: Former smoker how long ago did patient quit smokin alcohol intake: never substance use type: does not use what type of physical activity do you participate in: walking frequency: daily ROS Review of Systems ROS Unobtainable: due to mental status Vital Signs Vital Signs Vital Signs: 09/18/22 15:09 09/18/22 15:24 09/18/22 15:24 Temperature 96.3 F L Temperature Source Temporal Pulse Rate 76 76 Respiratory Rate 15 18 Respiratory Effort Normal Respiratory Depth Normal Respiratory Pattern Normal Blood Pressure 97/69 128/77 H Blood Pressure Mean 78 94 Pulse Ox 98 98 Oxygen Delivery Method Room Air Room Air 09/18/22 16:32 Temperature 97.8 F Temperature Source Temporal Pulse Rate 73 Respiratory Rate 18 Respiratory Effort Respiratory Depth Respiratory Pattern Blood Pressure 142/78 H Blood Pressure Mean 99 Pulse Ox 99 Oxygen Delivery Method Room Air Weight Weight: 58.967 kg Body Mass Index (BMI) 20.3 Physical Exam Const Constitutional Narrative: Thin, somnolent, older white male, sitting up in bed, awakens to sternal rub and will intermittently answer questions appropriately but quickly drifts back to sleep, appears much older than stated age, no one at bedside at time of my evaluation HEENT normocephalic and head/scalp atraumatic HEENT Narrative: Patient with temporal wasting, evidence of scars from previous falls, dentition is fair, Mallampati is 1, no thrush, mucous membranes are dry Eyes PERRL and conjunctivae normal Eyes Narrative: No scleral icterus Neck no lymphadenopathy, supple and no carotid bruits Neck Narrative: Trachea midline, no thyroid enlargement Resp normal respiratory effort, no retractions, no use of accessory muscles and No clear to auscultation bilaterally Resp Narrative: Scattered end expiratory wheezes Auscultation: wheezes expiratory wheezes; Negative for crackles or rhonchi Cardio regular rate, regular rhythm, S1 normal heart sound, S2 normal heart sound, no murmurs, no rub, no gallops and no clicks GI normal to inspection, nondistended, normoactive bowel sounds, soft to palpation and non-tender Extremity no clubbing, cyanosis or edema Extremity Narrative: Decreased lean muscle mass, 2+ pedal pulses Skin no wounds, skin turgor normal, no jaundice, no petechiae and no mottling Skin Narrative: Scattered ecchymosis but no noted wounds Neuro Neuro Narrative: Will spontaneously move extremities, marked weakness noted, reflexes are normal, patient appears somewhat contracted and unable to follow commands well enough to assess cranial nerves fully, speech is garbled when questions are answered Psych Psych Narrative: Difficult to assess Results Lab / Micro Data Result Diagrams: 09/18/22 15:45 09/18/22 15:45 Labs: Laboratory Results - last 24 hr 09/18/22 15:45: WBC 9.4, RBC 4.54 L, Hgb 13.9, Hct 44.0, MCV 96.9 H, MCH 30.6, MCHC 31.6 L, RDW Std Deviation 48.5 H, RDW Coeff of Boni 13.6, Plt Count 231, MPV 10.8, Immature Gran % (Auto) 1.700 H, Neut % (Auto) 65.8, Lymph % (Auto) 17.8 L, [place] % (Auto) 9.7, Eos % (Auto) 4.1, Baso % (Auto) 0.9, Absolute Neuts (auto) 6.2, Absolute Lymphs (auto) 1.67, Nucleated RBC % 0 09/18/22 15:45: Sodium 141, Potassium 4.2, Chloride 106, Carbon Dioxide 29.0, Anion Gap 6, BUN 27 H, Creatinine 0.99, Estim Creat Clear Calc 52.94, Est GFR (MDRD) Af Amer 95, Est GFR (MDRD) Non-Af 78, BUN/Creatinine Ratio 27.3 H, Glucose 90, Calcium 9.1, Troponin I High Sens [address] 09/18/22 15:36 IMPRESSION: Chronic involutional changes of the brain. Electronically Signed: Zuhair Bonner MD at 16:43 EST , Assessment & Plan Assessment/Plan (1) Weakness: (2) Adult failure to thrive: (3) Toxic metabolic encephalopathy: (4) Debility: PLAN: Plan Toxic/Metabolic Encephalopathy -Suspect multifactorial -Patient has been getting narcotics/has history of recurrent urinary tract infections/Parkinson's/Seroquel -ABG is pending -Check ammonia level -Check TSH -Hold narcotics -UA is pending as patient has history of recurrent infections -Consistent with infection we will send culture and start empiric antibiotics -Use Tylenol for pain Debility -PT/OT consultation -Will need ECF placement at discharge -Case management consulted Recent recurrent right shoulder dislocation -Last admission with discharge 08/31/2022 CT showed a impacted Hill-Sachs lesion of the right humeral head -Plan was for nonweightbearing with passive range of motion including dislocation protocol and follow-up with him 2 weeks after discharge -Not appear yet that the patient has followed up with Dr. Valladares -Hold narcotics for now with mental status -PT to consult COPD -Patient with [id number] history -Previous PFTs done and are consistent with COPD -Will schedule and add some as needed aerosols as patient does have some wheezing on exam -Doubt patient will be able to be compliant with incentive spirometry based on mental status -Patient is not on any baseline inhalers -We will recommend outpatient follow-up with pulmonary medicine after discharge BPH -Continue home Flomax Parkinson's disease with recurrent falls -Continue home carbidopa levodopa -PT/OT consultation Chronic constipation -Continue MiraLAX Depression/insomnia -Hold home Seroquel with depressed mentation -Will substitute low-dose Risperdal at at bedtime -continue home Lexapro Dementia -Suspect above issues are complicating his dementia DVT prophylaxis -Subcu Lovenox -SCDs CODE STATUS -DNR CCA with no intubation Charges/Coding Visit Charges Inpatient E&M: 75040 Init Hosp L3
--- NOTE | 2022-09-18 16:58 | NURSING ---
MED SURG AD WEAKNESS, FAILURE TO THRIVE, CONFUSION
[2022-09-18 17:06] LABS: Allen Test Positive; Base Excess -1 mmol/L (-2 to +2); Bicarbonate 23.6 mmol/L (22-26); Blood Gas Specimen Type ART; O2 Delivery Device Room Air; PO2 71 mmHG (75-100); SITE R Radial; SO2 94 % (95-99); Total Carbon Dioxide 25 mmol/L; pH 7.39 (7.35-7.45)
[2022-09-18 18:33] LABS: Ammonia < 10.0 umol/L (11-32)
[2022-09-18] MEDS: Lactated Ringers 1,000 ML 75 ML IV (21:45)
[2022-09-18] MEDS: Menthol/Lanolin/Calamine/Znox 113 GM Tube 1 APPLIC TOPICAL (21:45)
[2022-09-19] VITALS (8 sets, daily range): BP systolic 145–169; BP diastolic 94–107; PULSE 77–100; RESP 16–24; TEMP 36.4–36.9; O2SAT 91–100
[2022-09-19] MEDS: Acetaminophen 500 MG Tablet 1000 MG PO ×3 (05:30→20:23)
[2022-09-19 06:23] LABS: Absolute Lymphocyte Count 1.37 X10^3/uL (0.83-4.51); Absolute Neutrophil Count 5.5 X10^3/uL (2.0-7.7); Basophil# 0.07 X10^3/uL; Basophil% 0.9 % (0-1); Eosinophil# 0.18 X10^3/uL; Eosinophils% 2.3 % (0-5); Hematocrit 41.9 % (40-54); Hemoglobin 13.8 g/dL (13.0-16.5); Lymphocyte # 1.37 X10^3/ul (0.83-4.51); Lymphocyte % 17.5 % (19-41); Mean Corp Hgb Conc 32.9 g/dL (32-36); Mean Corpuscular Hgb 31.1 pg (27.0-32.0); Mean Corpuscular Volume 94.4 fL (80-94); Mean Platelet Vol. 10.8 fl (6.2-12.0); Monocyte# 0.61 X10^3/uL; Monocyte% 7.8 % (0-10); NRBC Flagged by Analyzer 0 % (0-5); Neutrophil % 70.2 % (47-70); Platelet Count 216 K/mm3 (150-450); RBC Distribution Width CV 13.2 % (11.6-14.6); RBC Distribution Width SD 46.1 fl (35.1-43.9); Red Blood Count 4.44 M/mm3 (4.6-6.2); White Blood Count 7.8 K/mm3 (4.4-11.0)
[2022-09-19 07:07] LABS: Phosphorus 2.9 mg/dL (2.5-4.9)
[2022-09-19] MEDS: Ipratropium/Albuterol Sulfate 3 ML AMPUL.NEB INHALATION ×3 (07:10→19:23)
[2022-09-19 07:12] LABS: ALB/GLOB Ratio 0.8 RATIO (0.9-2.4); AST(SGOT) 25 U/L (15-37); Alanine Aminotransfer ALT/SGPT 15 U/L (16-61); Albumin, Serum 3.2 g/dL (3.2-5.0); Alkaline Phosphatase 94 U/L (45-117); Anion Gap 4 (5-15); BUN 19 mg/dL (7-18); BUN/Creat Ratio 28.2 RATIO (10-20); Calcium,Total 8.6 mg/dL (8.5-10.1); Chloride 109 mmol/L (98-107); Creatinine, Serum 0.67 mg/dL (0.70-1.30); EST Glomerular Filtration Rate 122 mL/min (>60); Est Glom Filt Rate - Afr Amer 148 mL/min (>60); Estimated Creatinine Clearance 52.98 ml/min; Globulin 4.1 g/dL (2.2-4.2); Glucose 93 mg/dL (74-106); Magnesium 2.5 mg/dL (1.6-2.6); Protein, Total 7.3 g/dL (6.4-8.2); Sodium Level 140 mmol/L (136-145); Thyroid Stim Hormone (TSH) 2.14 uIU/mL (0.358-3.74)
[2022-09-19] MEDS: Carbidopa/Levodopa 25/100 Tablet PO ×3 (08:12→17:22)
[2022-09-19] MEDS: Calcium (Elemental) 500 MG Tablet PO ×2 (08:12→17:22)
[2022-09-19] MEDS: CARBIDOPA/LEVODOPA CR 50/200 Tablet PO ×2 (08:12→20:24)
[2022-09-19] MEDS: Menthol/Lanolin/Calamine/Znox 113 GM Tube 1 APPLIC TOPICAL ×2 (08:13→20:23)
[2022-09-19] MEDS: Enoxaparin 40 MG/0.4 ML Syringe SC (08:15)
[2022-09-19] MEDS: Polyethylene Glycol 3350 17 GM PACKET PO (08:15)
[2022-09-19] MEDS: Senna/Docusate Sodium 1 Tablet 2 TABLET PO ×2 (08:15→20:24)
--- NOTE | 2022-09-19 10:14 | PCM.PN.HOSP ---
Subjective Subjective Follow-up for generalized weakness and recurrent right shoulder dislocation and right upper extremity weakness. Objective Data Objective Data Vital Signs: Vital Signs Temp Pulse Resp BP Pulse Ox O2 Del Method 97.6 F L 95 18 153/107 H 97 Room Air 09/19/22 08:05 09/19/22 08:05 09/19/22 08:05 09/19/22 08:05 09/19/22 08:05 09/19/22 08:05 Oxygen Delivery Method Room Air Weight: 131 lb 6.328 oz Body Mass Index (BMI) 20.5 Intake & Output: Intake and Output for Last 24 Hours 09/17/22 09/18/22 09/19/22 23:59 23:59 23:59 Intake Total 1000 / 1000 0 / 0 Output Total 370 / 370 Balance 1000 / 880 -370 / -370 Lab / Micro Data Result Diagrams: 09/19/22 06:04 09/19/22 06:04 Labs: Laboratory Results - last 24 hr 09/18/22 15:45: WBC 9.4, RBC 4.54 L, Hgb 13.9, Hct 44.0, MCV 96.9 H, MCH 30.6, MCHC 31.6 L, RDW Std Deviation 48.5 H, RDW Coeff of Boni 13.6, Plt Count 231, MPV 10.8, Immature Gran % (Auto) 1.700 H, Neut % (Auto) 65.8, Lymph % (Auto) 17.8 L, [place] % (Auto) 9.7, Eos % (Auto) 4.1, Baso % (Auto) 0.9, Absolute Neuts (auto) 6.2, Absolute Lymphs (auto) 1.67, Nucleated RBC % 0 09/18/22 15:45: Sodium 141, Potassium 4.2, Chloride 106, Carbon Dioxide 29.0, Anion Gap 6, BUN 27 H, Creatinine 0.99, Estim Creat Clear Calc 52.94, Est GFR (MDRD) Af Amer 95, Est GFR (MDRD) Non-Af 78, BUN/Creatinine Ratio 27.3 H, Glucose 90, Calcium 9.1, Troponin I High Sens 10 09/18/22 17:47: Ammonia < 10.0 L 09/19/22 06:04: Sodium 140, Potassium 4.0, Chloride 109 H, Carbon Dioxide 27.0, Anion Gap 4 L, BUN 19 H, Creatinine 0.67 L, Estim Creat Clear Calc 52.98, Est GFR (MDRD) Af Amer 148, Est GFR (MDRD) Non-Af 122, BUN/Creatinine Ratio 28.2 H, Glucose 93, Calcium 8.6, Magnesium 2.5, Total Bilirubin 1.10 H, Direct Bilirubin 0.30, AST 25, ALT 15 L, Alkaline Phosphatase 94, Total Protein 7.3, Albumin 3.2, Globulin 4.1, Albumin/Globulin Ratio 0.8 L, TSH 2.14 09/19/22 06:04: WBC 7.8, RBC 4.44 L, Hgb 13.8, Hct 41.9, MCV 94.4 H, MCH 31.1, MCHC 32.9, RDW Std Deviation 46.1 H, RDW Coeff of Boni 13.2, Plt Count 216, MPV 10.8, Immature Gran % (Auto) 1.300 H, Neut % (Auto) 70.2 H, Lymph % (Auto) 17.5 L, [place] % (Auto) 7.8, Eos % (Auto) 2.3, Baso % (Auto) 0.9, Absolute Neuts (auto) 5.5, Absolute Lymphs (auto) 1.37, Nucleated RBC % 0 09/19/22 06:04: Phosphorus 2.9 ABG Data ABG results: ABG 09/18/22 17:01 Specimen Type ART Sample Site R Radial pH 7.39 Bicarbonate Actual 23.6 Total CO2 25 Base Excess -1 O2 Saturation 94 L ABG pCO2 39.0 ABG pO2 71 L Brian Test Positive O2 Delivery Device Room Air Radiography Diagnostic Testing: Radiology Impression Brain CT 09/18/22 15:36 IMPRESSION: Chronic involutional changes of the brain. Electronically Signed: Zuhair Bonner MD at 16:43 EST , Physical Exam Narrative Physical exam General: Awake., Cooperative, fatigue HEENT: Atraumatic, PERRLA, EOMI, Normocephalic Oral: No Gingival or Mucosal Lesions/ Ulcerations Neck: Supple, No JVD, Negative Carotid Bruits Lungs: Air entry diminished in bilateral lung bases. No crepitation/rhonchi Cardiovascular: Regular rate, Regular Rhythm, Normal S1, Normal S2, No murmurs Abdomen: Bowel Sounds Present, Soft, Non Tender, Non-Distended : No renal angle tenderness. No suprapubic tenderness. Extremities: No edema, Capillary Refill Less than 3 Seconds Skin: No rashes, No breakdown Musculoskeletal: Left shoulder is chronically weak, ROM restricted withdisability. ROM severely restricted on left shoulder. Neurological: Confused and disoriented, DTR 2+/4. Does not follow commands appropriately. Mild incomprehension Psych/Mental Status: Flat affect. Mild amnesia and dementia Assessment & Plan Assessment/Plan (1) Weakness: (2) Adult failure to thrive: (3) Toxic metabolic encephalopathy: (4) Debility: PLAN: Plan 1. Toxic/Metabolic Encephalopathy possible due to polypharmacy -Suspect multifactorial. Ammonia less than 10. ABG 7.3 on room air. Mild hypoxia. TSH normal. Patient himself denies burning micturition but cannot believe as patient is confused. . UA negative for WBC, nitrite, LE 25 bacteria 0 therefore negative. Hold sedative/tranquilizer medication. CT head was negative for acute abnormality Debility -PT/OT consultation -Will need ECF placement at discharge -Case management consulted Recent recurrent right shoulder dislocation -Last admission with discharge 08/31/2022 CT showed a impacted Hill-Sachs lesion of the right humeral head -Plan was for nonweightbearing with passive range of motion but patient could not follow with Dr. Valladares. Dr. Valladares consulted. Repeat right shoulder x-ray shows shows no acute abnormality but degenerative changes of AC joint and rotator cuff arthropathy. Continue PT and OT Patient had CT of right shoulder which reported degenerative change of the AC joint with prominent 1 cm pannus. Patient has history of possible Hill-Sachs lesion at right humeral head, chronic dislocation and degenerative changes. Patient was seen by Dr. Valladares during August 2022 admission. I called consult and left a voice message on phone after the requested consult as he could not follow-up in the office. X-ray of right shoulder ordered COPD -Patient with [id number] history -Previous PFTs done and are consistent with COPD -Will schedule and add some as needed aerosols as patient does have some wheezing on exam -Doubt patient will be able to be compliant with incentive spirometry based on mental status -Patient is not on any baseline inhalers -We will recommend outpatient follow-up with pulmonary medicine after discharge BPH -Continue home Flomax Parkinson's disease with recurrent falls -Continue home carbidopa levodopa -PT/OT consultation Chronic constipation -Continue MiraLAX Depression/insomnia -Hold home Seroquel with depressed mentation -Will substitute low-dose Risperdal at at bedtime -continue home Lexapro Dementia -Suspect above issues are complicating his dementia DVT prophylaxis -Subcu Lovenox -SCDs CODE STATUS -DNR CCA with no intubation Laboratory Results 09/18/22 15:45: WBC 9.4, RBC 4.54 L, Hgb 13.9, Hct 44.0, MCV 96.9 H, MCH 30.6, MCHC 31.6 L, RDW Std Deviation 48.5 H, RDW Coeff of Boni 13.6, Plt Count 231, MPV 10.8, Immature Gran % (Auto) 1.700 H, Neut % (Auto) 65.8, Lymph % (Auto) 17.8 L, [place] % (Auto) 9.7, Eos % (Auto) 4.1, Baso % (Auto) 0.9, Absolute Neuts (auto) 6.2, Absolute Lymphs (auto) 1.67, Nucleated RBC % 0 09/18/22 15:45: Sodium 141, Potassium 4.2, Chloride 106, Carbon Dioxide 29.0, Anion Gap 6, BUN 27 H, Creatinine 0.99, Estim Creat Clear Calc 52.94, Est GFR (MDRD) Af Amer 95, Est GFR (MDRD) Non-Af 78, BUN/Creatinine Ratio 27.3 H, Glucose 90, Calcium 9.1, Troponin I High Sens 10 09/18/22 17:01: Specimen Type ART, Sample Site R Radial, pH 7.39, Bicarbonate Actual 23.6, Total CO2 25, Base Excess -1, O2 Saturation 94 L, ABG pCO2 39.0, ABG pO2 71 L, Brian Test Positive, O2 Delivery Device Room Air 09/18/22 17:47: Ammonia < 10.0 L 09/19/22 06:04: Sodium 140, Potassium 4.0, Chloride 109 H, Carbon Dioxide 27.0, Anion Gap 4 L, BUN 19 H, Creatinine 0.67 L, Estim Creat Clear Calc 52.98, Est GFR (MDRD) Af Amer 148, Est GFR (MDRD) Non-Af 122, BUN/Creatinine Ratio 28.2 H, Glucose 93, Calcium 8.6, Magnesium 2.5, Total Bilirubin 1.10 H, Direct Bilirubin 0.30, AST 25, ALT 15 L, Alkaline Phosphatase 94, Total Protein 7.3, Albumin 3.2, Globulin 4.1, Albumin/Globulin Ratio 0.8 L, TSH 2.14 09/19/22 06:04: WBC 7.8, RBC 4.44 L, Hgb 13.8, Hct 41.9, MCV 94.4 H, MCH 31.1, MCHC 32.9, RDW Std Deviation 46.1 H, RDW Coeff of Boni 13.2, Plt Count 216, MPV 10.8, Immature Gran % (Auto) 1.300 H, Neut % (Auto) 70.2 H, Lymph % (Auto) 17.5 L, [place] % (Auto) 7.8, Eos % (Auto) 2.3, Baso % (Auto) 0.9, Absolute Neuts (auto) 5.5, Absolute Lymphs (auto) 1.37, Nucleated RBC % 0 09/19/22 06:04: Phosphorus 2.9 Charges/Coding Visit Charges Inpatient E&M: 80985 Subs Hosp L2
[2022-09-19] MEDS: Lactated Ringers 1,000 ML 75 ML IV (10:17)
--- NOTE | 2022-09-19 10:52 | NURSING ---
UPDATE GIVEN TO .
--- NOTE | 2022-09-19 10:53 | CASEMGMT ---
RODOLFO ROSENTHAL chart review: Patient was admitted 08/18-08/21/22 for AMS and UTI, denied HHC at discharge. Patient returned 08/30-08/31/22 in observation for right shoulder dislocation and was discharged to TCU on 08/31. Patient was discharged from TCU on 09/17/[address] [facility] for SN/PT/OT/CRESPO. Patient attended follow-up appt with PCP and was found to have BP of 60/40 and instructed to come to ED for further workup. Patient was admitted for weakness, failure to thrive, confusion, and toxic/metabolic encephalopathy. is stating that she is unable to care for patient at home and patient will likely need ECF at discharge. CM will continue to follow this patient and plan for a safe discharge.
[2022-09-19] MEDS: Ensure Plus High Protein 120 ML LIQUID PO ×2 (13:02→20:27)
--- NOTE | 2022-09-19 14:44 | CASEMGMT ---
SW attempted to call patient's and she did not answer and her voice mailbox was full. SW will continue to try and reach patient's regarding d/c plan. Samara Mcadams MSW KAYCEE
--- NOTE | 2022-09-19 15:40 | RAD_ITS ---
INDICATION: right shoulder chronic fracture, dislocation EXAMINATION/TECHNIQUE: X-RAY - RIGHT XR Shoulder Min 2 Views 2 VIEWS COMPARISON: 08/30/2022 FINDINGS: SOFT TISSUES: No soft tissue swelling or gas. No radiopaque foreign body. BONES/JOINTS: No acute fracture or dislocation. Mild narrowing of the subacromial joint space.. No sclerotic or destructive changes observed. RAD/Shoulder min 2 Views IMPRESSION: No acute bony abnormality. Probable rotator cuff arthropathy. Electronically Signed: Robi Garcia MD at 16:01 EST ,
[2022-09-19] MEDS: Tamsulosin HCl 0.4 MG Capsule PO (20:24)
[2022-09-20] MEDS: Escitalopram Oxalate 10 MG Tablet PO ×2 (00:44→21:51)
[2022-09-20] MEDS: Lactated Ringers 1,000 ML 75 ML IV ×2 (00:44→14:26)
[2022-09-20 02:00] VITALS: BP 119/79; PULSE 88; RESP 20; TEMP 36.8; O2SAT 96
[2022-09-20 05:43] VITALS: BP 133/74; PULSE 88; RESP 18; TEMP 36.4; O2SAT 95
[2022-09-20] MEDS: Acetaminophen 500 MG Tablet 1000 MG PO ×2 (05:45→21:50)
[2022-09-20 10:18] VITALS: BP 102/90; PULSE 86; RESP 16; TEMP 36.9; O2SAT 95
--- NOTE | 2022-09-20 10:20 | CASEMGMT ---
SANDRA called patient's Jennifer. SANDRA introduced self and role at [facility]. SANDRA asked Jennifer if she was planning on patient going to a senior living facility. Jennifer said she is not sure, but she cannot handle him if he cannot walk. She said she doesn't have the money to private pay custodial. SANDRA let her know if he works with therapy we could try and get him skilled somewhere, but she should work on a Medicaid application . Jennifer was afraid they will take their home away. SANDRA let her know they will not take their home away while she is living there. Jennifer will be in today around 2p. SANDRA will check in with her at that time. Samara Mcadams MAILROOM MESSENGER KAYCEE
[2022-09-20] MEDS: Calcium (Elemental) 500 MG Tablet PO ×2 (10:23→18:12)
[2022-09-20] MEDS: Menthol/Lanolin/Calamine/Znox 113 GM Tube 1 APPLIC TOPICAL ×2 (10:23→21:52)
[2022-09-20] MEDS: Enoxaparin 40 MG/0.4 ML Syringe SC (10:23)
[2022-09-20] MEDS: Polyethylene Glycol 3350 17 GM PACKET PO (10:23)
[2022-09-20] MEDS: Carbidopa/Levodopa 25/100 Tablet PO ×2 (10:23→18:12)
[2022-09-20] MEDS: CARBIDOPA/LEVODOPA CR 50/200 Tablet PO ×2 (10:23→21:53)
[2022-09-20] MEDS: Senna/Docusate Sodium 1 Tablet 2 TABLET PO ×2 (10:23→21:51)
--- NOTE | 2022-09-20 13:40 | CASEMGMT ---
SANDRA met with patient's . SANDRA provided her with a list of group home facility?providers including quality and resource use data and consistent with patient?s preferred geographic region, medical needs, and insurance network were provided from the [employer] Guide. SANDRA asked that she pick 3-4 choices and she can call SANDRA. SW let her know patient is likely going to be ready tomorrow. She will call SANDRA and leave a voice mail with her choices. SNF pending family choices and accepting facility. Samara BENOIT
--- NOTE | 2022-09-20 15:49 | PCM.PN.HOSP ---
Subjective Subjective Follow-up for confusion. Physical debility with low functional capacity. Objective Data Objective Data Vital Signs: Vital Signs Temp Pulse Resp BP Pulse Ox O2 Del Method 98.5 F 86 16 102/90 H 95 Room Air 09/20/22 10:18 09/20/22 10:18 09/20/22 10:18 09/20/22 10:18 09/20/22 10:18 09/20/22 10:18 Oxygen Delivery Method Room Air Weight: 131 lb 6.328 oz Body Mass Index (BMI) 20.5 Intake & Output: Intake and Output for Last 24 Hours 09/18/22 09/19/22 09/20/22 23:59 23:59 23:59 Intake Total 1000 / 1000 2580 / 2580 1050 / 1050 Output Total 720 / 720 350 / 350 Balance 1000 / 880 1860 / 1860 700 / 700 Medical Nutrition Assessment Dietitian: Malnutrition Criteria Met Start: 09/19/22 11:10 Freq: Status: Active Protocol: Document 09/19/22 11:10 RMA (Rec: 09/19/22 11:10 RMA [id number]) Nutrition Malnutrition Evidence of Malnutrition Exists Yes Malnutrition (severe): Chronic Evidenced By Suboptimal Energy Intake ( Moderate),Weight Loss (Severe) ,Physical Changes (Moderate) Clinical Problem Chronic Disease or Condition Related Malnutrition Etiology Moderate to severe protein- calorie malnutrition in the context of chronic disease and debility related to inadequate oral intake Signs/Symptoms as evidenced by ~3-5% wt loss x 1-2 months, inadequate oral intake at meals meeting less than 50-75% estimated nutrition needs x past 1 month and visible muscle/fat wasting in the clavicle, orbitals and temporal regions Status Active Problem Recommendation Dietitian Recommendations/Changes Will liberalize diet to regular given signs/symptoms of malnutrition with easy-to- chew meats/thin liquids. Will continue 120ml ensure plus with medpass 4 times per day. Will add ensure pudding BID with meals as tolerated. Lab / Micro Data Result Diagrams: 09/19/22 06:04 09/19/22 06:04 Radiography Diagnostic Testing: Radiology Impression Shoulder X-Ray 09/19/22 15:40 IMPRESSION: No acute bony abnormality. Probable rotator cuff arthropathy. Electronically Signed: Robi Garcia MD at 16:01 EST , Physical Exam Narrative Seen and examined. Patient BP 102/90. Avoid antihypertensive medications. Physical exam General: Awake., Cooperative, confused and disoriented HEENT: Atraumatic, PERRLA, EOMI, Normocephalic Oral: No Gingival or Mucosal Lesions/ Ulcerations Neck: Supple, No JVD, Negative Carotid Bruits Lungs: Air entry diminished in bilateral lung bases. No crepitation/rhonchi Cardiovascular: Regular rate, Regular Rhythm, Normal S1, Normal S2, No murmurs Abdomen: Bowel Sounds Present, Soft, Non Tender, Non-Distended : No renal angle tenderness. No suprapubic tenderness. Extremities: No edema, Capillary Refill Less than 3 Seconds Skin: No rashes, No breakdown Musculoskeletal: Left shoulder is chronically weak, ROM restricted with disability. Seems left frozen shoulder. Neurological: Confused and disoriented, DTR 2+/4. Does not follow commands appropriately. Mild incomprehension Psych/Mental Status: Flat affect. Mild amnesia and dementia Assessment & Plan Assessment/Plan (1) Weakness: (2) Adult failure to thrive: (3) Toxic metabolic encephalopathy: (4) Debility: PLAN: Plan 1. Toxic/Metabolic Encephalopathy possible due to polypharmacy -Suspect multifactorial. Ammonia less than 10. ABG 7.3 on room air. Mild hypoxia. TSH normal. Patient himself denies burning micturition but cannot believe as patient is confused. . UA negative for WBC, nitrite, LE 25 bacteria 0 therefore negative. Hold sedative/tranquilizer medication. CT head was negative for acute abnormality 09/20: Since patient might have dementia. No improvement. BP on lower side but does not meet hypotension. Patient not on antihypertensive medication. Debility -PT/OT consultation - ECF placement at discharge as deemed necessary by PT and OT recommendation -Case management consulted Recent recurrent right shoulder dislocation -Last admission with discharge 08/31/2022 CT showed a impacted Hill-Sachs lesion of the right humeral head -Plan was for nonweightbearing with passive range of motion but patient could not follow with Dr. Valladares. Dr. Valladares consulted. Repeat right shoulder x-ray shows shows no acute abnormality but degenerative changes of AC joint and rotator cuff arthropathy. Continue PT and OT 09/20: Discussed with Dr. Valladares yesterday. Patient had CT of right shoulder which reported degenerative change of the AC joint with prominent 1 cm pannus. Patient has history of possible Hill-Sachs lesion at right humeral head, chronic dislocation and degenerative changes. Patient was seen by Dr. Valladares during August 2022 admission. I called consult and left a voice message on phone after the requested consult as he could not follow-up in the office. X-ray of right shoulder ordered COPD -Patient with 10-mlgq-cvjf history -Previous PFTs done and are consistent with COPD -Will schedule and add some as needed aerosols as patient does have some wheezing on exam -Doubt patient will be able to be compliant with incentive spirometry based on mental status -Patient is not on any baseline inhalers -We will recommend outpatient follow-up with pulmonary medicine after discharge BPH -Continue home Flomax Parkinson's disease with recurrent falls -Continue home carbidopa levodopa -PT/OT consultation Chronic constipation -Continue MiraLAX Depression/insomnia -Hold home Seroquel with depressed mentation -Will substitute low-dose Risperdal at at bedtime -continue home Lexapro Dementia -Suspect above issues are complicating his dementia DVT prophylaxis -Subcu Lovenox -SCDs CODE STATUS -DNR CCA with no intubation Laboratory Results 09/18/22 15:45: WBC 9.4, RBC 4.54 L, Hgb 13.9, Hct 44.0, MCV 96.9 H, MCH 30.6, MCHC 31.6 L, RDW Std Deviation 48.5 H, RDW Coeff of Boni 13.6, Plt Count 231, MPV 10.8, Immature Gran % (Auto) 1.700 H, Neut % (Auto) 65.8, Lymph % (Auto) 17.8 L, [place] % (Auto) 9.7, Eos % (Auto) 4.1, Baso % (Auto) 0.9, Absolute Neuts (auto) 6.2, Absolute Lymphs (auto) 1.67, Nucleated RBC % 0 09/18/22 15:45: Sodium 141, Potassium 4.2, Chloride 106, Carbon Dioxide 29.0, Anion Gap 6, BUN 27 H, Creatinine 0.99, Estim Creat Clear Calc 52.94, Est GFR (MDRD) Af Amer 95, Est GFR (MDRD) Non-Af 78, BUN/Creatinine Ratio 27.3 H, Glucose 90, Calcium 9.1, Troponin I High Sens 10 09/18/22 17:01: Specimen Type ART, Sample Site R Radial, pH 7.39, Bicarbonate Actual 23.6, Total CO2 25, Base Excess -1, O2 Saturation 94 L, ABG pCO2 39.0, ABG pO2 71 L, Brian Test Positive, O2 Delivery Device Room Air 09/18/22 17:47: Ammonia < 10.0 L 09/19/22 06:04: Sodium 140, Potassium 4.0, Chloride 109 H, Carbon Dioxide 27.0, Anion Gap 4 L, BUN 19 H, Creatinine 0.67 L, Estim Creat Clear Calc 52.98, Est GFR (MDRD) Af Amer 148, Est GFR (MDRD) Non-Af 122, BUN/Creatinine Ratio 28.2 H, Glucose 93, Calcium 8.6, Magnesium 2.5, Total Bilirubin 1.10 H, Direct Bilirubin 0.30, AST 25, ALT 15 L, Alkaline Phosphatase 94, Total Protein 7.3, Albumin 3.2, Globulin 4.1, Albumin/Globulin Ratio 0.8 L, TSH 2.14 09/19/22 06:04: WBC 7.8, RBC 4.44 L, Hgb 13.8, Hct 41.9, MCV 94.4 H, MCH 31.1, MCHC 32.9, RDW Std Deviation 46.1 H, RDW Coeff of Boni 13.2, Plt Count 216, MPV 10.8, Immature Gran % (Auto) 1.300 H, Neut % (Auto) 70.2 H, Lymph % (Auto) 17.5 L, [place] % (Auto) 7.8, Eos % (Auto) 2.3, Baso % (Auto) 0.9, Absolute Neuts (auto) 5.5, Absolute Lymphs (auto) 1.37, Nucleated RBC % 0 09/19/22 06:04: Phosphorus 2.9 Charges/Coding Visit Charges Inpatient E&M: 33081 Subs Hosp L2
[2022-09-20 17:00] VITALS: BP 114/88; PULSE 84; RESP 16; TEMP 36.7; O2SAT 94
[2022-09-20 19:02] VITALS: PULSE 76; RESP 20
[2022-09-20] MEDS: Ipratropium/Albuterol Sulfate 3 ML AMPUL.NEB INHALATION (19:02)
[2022-09-20 20:19] VITALS: BP 154/93; PULSE 92; RESP 18; TEMP 36.5; O2SAT 97
--- NOTE | 2022-09-20 20:20 | NURSING ---
Pt noted laying on floor in room, pt noted with abrasion to forehead and L forearm. adaptic, gauze and tape dressing applied. pt is Alert and oriented to self only. MD notified brain CT completed. no farther injuries noted at this time. will monitor.
--- NOTE | 2022-09-20 20:30 | CT_ITS ---
INDICATION: Trauma, fall with head injury EXAMINATION: CT BRAIN - CT Head or Brain W/O Contrast Injection TECHNIQUE: Multiple axial images were obtained of the head without intravenous contrast. A radiation dose optimization technique was used for this scan. IV Contrast dosage and agent: None. COMPARISON: 09/18/2022 FINDINGS: BRAIN PARENCHYMA: No intra- or extra-axial hemorrhage. No evidence of acute infarct. No intracranial mass or mass effect. There is preservation of the garcia/white matter interface. Posterior fossa structures are unremarkable. Volume loss with low attenuation of the periventricular white matter typical of chronic small vessel disease. CSF SPACES: Appropriate for age. No hydrocephalus. Basal cisterns are patent. CALVARIUM, SKULL BASE, PARANASAL SINUSES AND MASTOID AIR CELLS: Scattered minimal mucoperiosteal thickening. No acute fracture. CT/Brain/Head without Contrast IMPRESSION: Volume loss with chronic white matter changes. No acute intracranial findings. Electronically Signed: Robi Garcia MD at 21:29 EST ,
[2022-09-20] MEDS: Ensure Plus High Protein 120 ML LIQUID PO (21:51)
[2022-09-20] MEDS: Tamsulosin HCl 0.4 MG Capsule PO (21:51)
[2022-09-20 23:40] LABS: Mucous, Urine 0 SEEN /hpf (<or=2+); Red Blood Cells-Urine 0 SEEN /hpf (0-5)
[2022-09-20 23:55] LABS: Color, Urine Yellow (Yellow); Glucose, Dipstick Normal (Normal); Ketone-Dipstick 50 mg/dl (Negative); Leukocyte Esterase-Dipstick 25 /ul (Negative); Nitrite-Dipstick Negative (Negative); Occult Blood-Urine Negative /ul (Negative); Protein-Dipstick Negative (Negative); Specific Gravity, Urine 1.015 (1.002-1.030); Urine Bilirubin Dipstick Negative (Negative); Urine Clarity Clear (Clear); Urine Urobilinogen 1 mg/dl (Normal)
[2022-09-21 00:01] LABS: Bacteria 3+ /hpf (None Seen); Squamous Epithelial Cells - UA 0-5 SEEN /hpf (0-5); White Blood Cells 0-5 SEEN /hpf (0-5)
[2022-09-21 00:02] LABS: Amorphous Sediment 1+
[2022-09-21 02:00] VITALS: BP 116/70; PULSE 80; RESP 18; TEMP 36.8; O2SAT 94
[2022-09-21] MEDS: Lactated Ringers 1,000 ML 100 ML IV ×2 (03:00→12:02)
--- NOTE | 2022-09-21 06:14 | NURSING ---
pt spouse Jennifer provided with update regarding pt fall and current condition at this time. Spouse states, will be in to see patient today.
[2022-09-21 07:23] VITALS: BP 118/104; PULSE 80; RESP 15; TEMP 36.9; O2SAT 94
--- NOTE | 2022-09-21 09:10 | CASEMGMT ---
SANDRA called patient's as she had left a voice mail requesting a return call. She asked if she had to fill out their financial information on the Medicaid application. SANDRA told her she will need to do this. SANDRA asked if she had picked any jail choices. She had not. SANDRA went over some of the options. She was okay with SANDRA sending referrals to [facility] and [facility]. SANDRA asked Astrid d/c urban planning teacher to please send referrals. Plan: SNF pending accepting facilities. Samara BENOIT
--- NOTE | 2022-09-21 09:10 | PCM.PN.HOSP ---
Subjective Subjective Follow-up for physical debility and dementia. Patient fell down last night and has bruise over the right forehead and knee. CT head was done does not show acute abnormality. Objective Data Objective Data Vital Signs: Vital Signs Temp Pulse Resp BP Pulse Ox O2 Del Method 98.5 F 80 15 118/104 H 94 Room Air 09/21/22 07:23 09/21/22 07:23 09/21/22 07:23 09/21/22 07:23 09/21/22 07:23 09/21/22 07:30 Oxygen Delivery Method Room Air Weight: 131 lb 6.328 oz Body Mass Index (BMI) 20.5 Intake & Output: Intake and Output for Last 24 Hours 09/19/22 09/20/22 09/21/22 23:59 23:59 23:59 Intake Total 2580 / 2580 1453.75 / 1453.75 766.25 / 766.25 Output Total 720 / 720 1400 / 1400 250 / 250 Balance 1860 / 1860 53.75 / 53.75 516.25 / 516.25 Medical Nutrition Assessment Dietitian: Malnutrition Criteria Met Start: 09/19/22 11:10 Freq: Status: Active Protocol: Document 09/19/22 11:10 RMA (Rec: 09/19/22 11:10 RMA [id number]) Nutrition Malnutrition Evidence of Malnutrition Exists Yes Malnutrition (severe): Chronic Evidenced By Suboptimal Energy Intake ( Moderate),Weight Loss (Severe) ,Physical Changes (Moderate) Clinical Problem Chronic Disease or Condition Related Malnutrition Etiology Moderate to severe protein- calorie malnutrition in the context of chronic disease and debility related to inadequate oral intake Signs/Symptoms as evidenced by ~3-5% wt loss x 1-2 months, inadequate oral intake at meals meeting less than 50-75% estimated nutrition needs x past 1 month and visible muscle/fat wasting in the clavicle, orbitals and temporal regions Status Active Problem Recommendation Dietitian Recommendations/Changes Will liberalize diet to regular given signs/symptoms of malnutrition with easy-to- chew meats/thin liquids. Will continue 120ml ensure plus with medpass 4 times per day. Will add ensure pudding BID with meals as tolerated. Lab / Micro Data Result Diagrams: 09/19/22 06:04 09/19/22 06:04 Labs: Laboratory Results - last 24 hr 09/20/22 23:28: Urine Color Yellow, Urine Clarity Clear, Urine pH 8.0, Ur Specific [place] 1.015, Urine Protein Negative, Urine Glucose (UA) Normal, Urine Ketones 50 H, Urine Occult Blood Negative, Urine Nitrite Negative, Urine Bilirubin Negative, Urine Urobilinogen 1 H, Ur Leukocyte Esterase 25 H, Urine RBC 0 SEEN, Urine WBC 0-5 SEEN, Ur Squamous Epith Cells 0-5 SEEN, Amorphous Sediment 1+, Urine Bacteria 3+, Urine Mucus 0 SEEN Radiography Diagnostic Testing: Radiology Impression Brain CT 09/20/22 20:30 IMPRESSION: Volume loss with chronic white matter changes. No acute intracranial findings. Electronically Signed: Robi Garcia MD at 21:29 EST , Physical Exam Narrative Seen and examined. Fall last night. Bruise over right side of forehead and knee. No hematoma or major intracranial abnormality. Physical exam General: Awake., Cooperative, confused and disoriented HEENT: Atraumatic, PERRLA, EOMI, Normocephalic Oral: No Gingival or Mucosal Lesions/ Ulcerations Neck: Supple, No JVD, Negative Carotid Bruits Lungs: Air entry diminished in bilateral lung bases. No crepitation/rhonchi Cardiovascular: Regular rate, Regular Rhythm, Normal S1, Normal S2, No murmurs Abdomen: Bowel Sounds Present, Soft, Non Tender, Non-Distended : No renal angle tenderness. No suprapubic tenderness. Extremities: No edema, Capillary Refill Less than 3 Seconds Skin: No rashes, No breakdown Musculoskeletal: Left shoulder is chronically weak, ROM restricted with disability. Seems left frozen shoulder. Neurological: Confused and disoriented, DTR 2+/4. Hypertonia. Stiffness and postural instability. Parkinson's disease. Psych/Mental Status: Flat affect. Mild amnesia and dementia Assessment & Plan Assessment/Plan (1) Weakness: (2) Adult failure to thrive: (3) Toxic metabolic encephalopathy: (4) Debility: PLAN: Plan 1. Toxic/Metabolic Encephalopathy possible due to polypharmacy -Suspect multifactorial. Ammonia less than 10. ABG 7.3 on room air. Mild hypoxia. TSH normal. Patient himself denies burning micturition but cannot believe as patient is confused. . UA negative for WBC, nitrite, LE 25 bacteria 0 therefore negative. Hold sedative/tranquilizer medication. CT head was negative for acute abnormality 09/20: Since patient might have dementia. No improvement. BP on lower side but does not meet hypotension. Patient not on antihypertensive medication. Debility -PT/OT consultation - ECF placement at discharge as deemed necessary by PT and OT recommendation -Case management consulted 09/21: Patient had a fall. No acute intracranial abnormality. PT and OT ordered. Recent recurrent right shoulder dislocation -Last admission with discharge 08/31/2022 CT showed a impacted Hill-Sachs lesion of the right humeral head -Plan was for nonweightbearing with passive range of motion but patient could not follow with Dr. Valladares. Dr. Valladares consulted was consulted as per 's request. Repeat right shoulder x-ray shows shows no acute abnormality but degenerative changes of AC joint and rotator cuff arthropathy. Continue PT and OT 09/20: Discussed with Dr. Valladares yesterday. 09/21: I talked to the patient's and talked about x-ray finding of right shoulder. Small degenerative changes and arthritis and rotator cuff arthropathy which needs aggressive PT and OT. Dr. Valladares called me to cancel the consult as he does not see any acute intervention needed. Consult canceled. Patient had CT of right shoulder which reported degenerative change of the AC joint with prominent 1 cm pannus. Patient has history of possible Hill-Sachs lesion at right humeral head, chronic dislocation and degenerative changes. Patient was seen by Dr. Valladares during August 2022 admission. I called consult and left a voice message on phone after the requested consult as he could not follow-up in the office. X-ray of right shoulder ordered COPD -Patient with [id number] history -Previous PFTs done and are consistent with COPD -Will schedule and add some as needed aerosols as patient does have some wheezing on exam -Doubt patient will be able to be compliant with incentive spirometry based on mental status -Patient is not on any baseline inhalers -We will recommend outpatient follow-up with pulmonary medicine after discharge BPH -Continue home Flomax Parkinson's disease with recurrent falls -Continue home carbidopa levodopa -PT/OT consultation Chronic constipation -Continue MiraLAX Depression/insomnia -Hold home Seroquel with depressed mentation -Will substitute low-dose Risperdal at at bedtime -continue home Lexapro Dementia -Suspect above issues are complicating his dementia DVT prophylaxis -Subcu Lovenox -SCDs CODE STATUS -DNR CCA with no intubation Laboratory Results 09/20/22 23:28: Urine Color Yellow, Urine Clarity Clear, Urine pH 8.0, Ur Specific [place] 1.015, Urine Protein Negative, Urine Glucose (UA) Normal, Urine Ketones 50 H, Urine Occult Blood Negative, Urine Nitrite Negative, Urine Bilirubin Negative, Urine Urobilinogen 1 H, Ur Leukocyte Esterase 25 H, Urine RBC 0 SEEN, Urine WBC 0-5 SEEN, Ur Squamous Epith Cells 0-5 SEEN, Amorphous Sediment 1+, Urine Bacteria 3+, Urine Mucus 0 SEEN Clinical Impression(s) from Imaging Studies Brain CT 09/18/22 15:36 IMPRESSION: Chronic involutional changes of the brain. Electronically Signed: Zuhair Bonner MD at 16:43 EST , Shoulder X-Ray 09/19/22 15:40 IMPRESSION: No acute bony abnormality. Probable rotator cuff arthropathy. Electronically Signed: Robi Garcia MD at 16:01 EST , Brain CT 09/20/22 20:30 IMPRESSION: Volume loss with chronic white matter changes. No acute intracranial findings. Electronically Signed: Robi Garcia MD at 21:29 EST , Charges/Coding Visit Charges Inpatient E&M: 35721 Subs Hosp L2
--- NOTE | 2022-09-21 09:13 | CASEMGMT ---
Discharge Proof Coin Collector This automotive service writer sent referral via [facility] to Dustin Paez and Saeid Burdick DC Compliance Monitor
[2022-09-21] MEDS: CARBIDOPA/LEVODOPA CR 50/200 Tablet PO (09:22)
[2022-09-21] MEDS: Carbidopa/Levodopa 25/100 Tablet PO ×2 (09:22→15:07)
[2022-09-21] MEDS: Calcium (Elemental) 500 MG Tablet PO (09:23)
[2022-09-21] MEDS: Senna/Docusate Sodium 1 Tablet 2 TABLET PO (09:23)
[2022-09-21] MEDS: Enoxaparin 40 MG/0.4 ML Syringe SC (09:23)
[2022-09-21] MEDS: Menthol/Lanolin/Calamine/Znox 113 GM Tube 1 APPLIC TOPICAL (09:24)
[2022-09-21] MEDS: Ensure Plus High Protein 120 ML LIQUID PO (09:25)
[2022-09-21] MEDS: Acetaminophen 500 MG Tablet 1000 MG PO (12:29)
[2022-09-21 13:13] VITALS: BP 118/80; PULSE 83; RESP 16; TEMP 36.7; O2SAT 97
--- NOTE | 2022-09-21 13:20 | CASEMGMT ---
SANDRA went to patient's room to talk with patient's per her request. She said she would like patient to go someplace in [place]. She looked at the list and chose [facility]. She was interested in the Dementia Unit. SANDRA asked Astrid d/c planning division superintendent to please make the referral. Samara BENOIT
--- NOTE | 2022-09-21 13:24 | CASEMGMT ---
Discharge Bridge Construction Inspector This junior copywriter sent referral to CC via [facility]. Gennaro [employer] Assembling Fabricator
--- NOTE | 2022-09-21 14:42 | CASEMGMT ---
Discharge Acupressurist Patient has been accepted at [facility]. Samara notified. Gennaro [employer] Extension Work Director
--- NOTE | 2022-09-21 14:54 | TREXTCAR_ITS ---
Diet Diet Order/Speech Therapy: 09/19/22 11:11 Diet: Regular - General Food consistency:: Regular Liquid Consistency:: Regular/Thin Type of Dietary Supplement:: Ensure Pudding w/ L & D Is pt able to select menu?: No Diet Comments: Easy to Chew meats, Supervise/assist feeding at meals, meds in applesauce Routine Orders/Code Status Suppository Type: Dulcolax 10mg Suppository Frequency: Daily PRN Code Status: DNRCC-A (No intubation) Wound(s) L posterior side: Wound Type: scab R knee: Wound Type: Abrasion L forearm: Wound Type: Skin Tear forehead: Wound Type: Abrasion Therapies Weight Bearing: Weight bearing as tolerated Extremity Affected:: Right upper extremity Physical Therapy: Eval and Treat Occupational Therapy: Eval and Treat Speech Therapy: Eval and Treat Problem/Diagnosis (1) Weakness: Status: Acute Code(s): R53.1 - Weakness (2) Adult failure to thrive: Status: Acute Code(s): R62.7 - Adult failure to thrive (3) Toxic metabolic encephalopathy: Status: Acute Code(s): G92.8 - Other toxic encephalopathy (4) Debility: Status: Acute Code(s): R53.81 - Other malaise Plan 1. Toxic/Metabolic Encephalopathy possible due to polypharmacy -Suspect multifactorial. Ammonia less than 10. ABG 7.3 on room air. Mild hypoxia. TSH normal. Patient himself denies burning micturition but cannot believe as patient is confused. . UA negative for WBC, nitrite, LE 25 bacteria 0 therefore negative. Hold sedative/tranquilizer medication. CT head was negative for acute abnormality 09/20: Since patient might have dementia. No improvement. BP on lower side but does not meet hypotension. Patient not on antihypertensive medication. Debility -PT/OT consultation - ECF placement at discharge as deemed necessary by PT and OT recommendation -Case management consulted 09/21: Patient had a fall. No acute intracranial abnormality. PT and OT o rdered. Recent recurrent right shoulder dislocation -Last admission with discharge 08/31/2022 CT showed a impacted Hill-Sachs lesion of the right humeral head -Plan was for nonweightbearing with passive range of motion but patient could not follow with Dr. Valladares. Dr. Valladares consulted was consulted as per 's request. Repeat right shoulder x-ray shows shows no acute abnormality but degenerative changes of AC joint and rotator cuff arthropathy. Continue PT and OT 09/20: Discussed with Dr. Valladares yesterday. 09/21: I talked to the patient's and talked about x-ray finding of right shoulder. Small degenerative changes and arthritis and rotator cuff arthropathy which needs aggressive PT and OT. Dr. Valladares called me to cancel the consult as he does not see any acute intervention needed. Consult canceled. Patient had CT of right shoulder which reported degenerative change of the AC joint with prominent 1 cm pannus. Patient has history of possible Hill-Sachs lesion at right humeral head, chronic dislocation and degenerative changes. Patient was seen by Dr. Valladares during August 2022 admission. I called consult and left a voice message on phone after the requested consult as he could not follow-up in the office. X-ray of right shoulder ordered COPD -Patient with [id number] history -Previous PFTs done and are consistent with COPD -Will schedule and add some as needed aerosols as patient does have some wheezing on exam -Doubt patient will be able to be compliant with incentive spirometry based on mental status -Patient is not on any baseline inhalers -We will recommend outpatient follow-up with pulmonary medicine after discharge BPH -Continue home Flomax Parkinson's disease with recurrent falls -Continue home carbidopa levodopa -PT/OT consultation Chronic constipation -Continue MiraLAX Depression/insomnia -Hold home Seroquel with depressed mentation -Will substitute low-dose Risperdal at at bedtime -continue home Lexapro Dementia -Suspect above issues are complicating his dementia DVT prophylaxis -Subcu Lovenox -SCDs CODE STATUS -DNR CCA with no intubation Laboratory Results 09/20/22 23:28: Urine Color Yellow, Urine Clarity Clear, Urine pH 8.0, Ur Specific [place] 1.015, Urine Protein Negative, Urine Glucose (UA) Normal, Urine Ketones 50 H, Urine Occult Blood Negative, Urine Nitrite Negative, Urine Bilirubin Negative, Urine Urobilinogen 1 H, Ur Leukocyte Esterase 25 H, Urine RBC 0 SEEN, Urine WBC 0-5 SEEN, Ur Squamous Epith Cells 0-5 SEEN, Amorphous Sediment 1+, Urine Bacteria 3+, Urine Mucus 0 SEEN Clinical Impression(s) from Imaging Studies Brain CT 09/18/22 15:36 IMPRESSION: Chronic involutional changes of the brain. Electronically Signed: Zuhair Bonner MD at 16:43 EST , Shoulder X-Ray 09/19/22 15:40 IMPRESSION: No acute bony abnormality. Probable rotator cuff arthropathy. Electronically Signed: Robi Garcia MD at 16:01 EST , Brain CT 09/20/22 20:30 IMPRESSION: Volume loss with chronic white matter changes. No acute intracranial findings. Electronically Signed: Robi Garcia MD at 21:29 EST , Allergies/Procedures Done in Hospital Allergies pregabalin [From Lyrica] Adverse Reaction (Verified 09/18/22 15:09) hallucinations Type of Care/Length of Stay Estimated LOS: Convalescent Care Less Than 30 days Type of Care Needed: Skilled Rehab Potential: Good Prognosis: Good Additional Orders/Day of Discharge Day of Discharge: 09/21/22 Dietary and Speech Recommendations Dietitian Recommendations/Changes: Will liberalize diet to regular given signs/symptoms of malnutrition with [id number] meats/thin liquids. Will continue 120ml ensure plus with medpass 4 times per day. Will add ensure pudding BID with meals as tolerated. Discharge Plan Admission Admit Date/Time: 09/18/22 17:13 Primary Reason for Your Visit: Fall and physical debility, Parkinson disease and dementia Attending Provider: Yuri Villafana Primary Care Provider: Casper Do Consulting Providers: Radha Driver Discharge Orders/Prescriptions Prescriptions: New ipratropium-albuterol 0.5 mg-3 mg(2.5 mg base)/3 mL Solution For Nebulization 3 ml inhalation Q6HWA.RT PRN (Reason: SOB) Qty: 0 0RF tramadol 50 mg Tablet 50 mg PO TID PRN PRN (Reason: Pain Score 6-10) 3 Days Qty: 7 0RF Continued (DME) walker Qty: 1 0RF Rx Instructions: Walker with wheels, brakes, and seat carbidopa-levodopa [Sinemet] 25-100 mg Tablet 1 tab PO TIDCM@0900,1300,1800 carbidopa-levodopa 50-200 mg Tablet Extended Release 1 tab PO 0900,2200 polyethylene glycol 3350 [Miralax] 17 gram/dose Powder 17 g PO DAILY quetiapine 25 mg Tablet 25 mg PO BID 30 Days Qty: 60 0RF sennosides-docusate sodium [Senna Plus] 8.6-50 mg Tablet 2 tab-cap PO BID calcium carbonate 500 mg calcium (1,250 mg) Tablet,Chewable 500 mg PO BIDCM menthol-zinc oxide [Calmoseptine] 0.44-20.6 % Ointment 1 applic TOPICAL BID Ensure Plus High Protein 0.08 gram-1.5 kcal/mL Liquid 120 ml PO 4X/DAY acetaminophen 500 mg tablet 1,000 mg PO Q8H tamsulosin 0.4 mg capsule 0.4 mg PO QHS 30 Days Qty: 30 3RF escitalopram oxalate 10 mg tablet 10 mg PO QHS Qty: 90 0RF Discontinued oxycodone 5 mg Tablet 10 mg PO Q4H PRN PRN (Reason: Pain Score 6-10) 3 Days Qty: 18 0RF lorazepam 1 mg tablet 1 mg PO Q6H PRN (Reason: ANXIETY/RESTLESSNESS/SLEEP) Referrals / Follow Up: Casper Do DO [Primary Care Provider] - Within 2 Weeks Yong Valladares MD [Med Staff - Active Staff] - Within 2 Weeks (For right shoulder arthritis/frozen shoulder) Davion Clement MD [Non-Staff] - Within 1 Month (For Parkinson disease worsening. Recurrent fall) Disposition Disposition (needs filled in before D/C Order can be placed): Intermediate Facility
--- NOTE | 2022-09-21 15:01 | DS.PCM_ITS ---
Providers Date of Admission: 09/18/22 Date of Discharge: 09/21/22 Primary Care Physician: Dr. Casper Do, DO Reason For Visit: METABOLIC ENCEPHALOPATHY Diagnosis Discharge Diagnosis (1) Weakness: Status: Acute Code(s): R53.1 - Weakness (2) Adult failure to thrive: Status: Acute Code(s): R62.7 - Adult failure to thrive (3) Toxic metabolic encephalopathy: Status: Acute Code(s): G92.8 - Other toxic encephalopathy (4) Debility: Status: Acute Code(s): R53.81 - Other malaise Plan This is 77-year-old gentleman who was admitted for shortness of breath and confusion. Patient was recently discharged to SNF on 09/17/2022. Was found to have low blood. office therefore was referred to ED. Patient on oxycodone and alprazolam in jail that was discontinued. Patient also has physical debility with recurrent fall, disequilibrium due to worsening Parkinson's disease. 1. Toxic/Metabolic Encephalopathy possible due to polypharmacy -Suspect multifactorial. Ammonia less than 10. ABG 7.3 on room air. Mild hypoxia. TSH normal. Patient himself denies burning micturition but cannot believe as patient is confused. . UA negative for WBC, nitrite, LE 25 bacteria 0 therefore negative. Hold sedative/tranquilizer medication. CT head was negative for acute abnormality 09/20: Since patient might have dementia. No improvement. BP on lower side but does not meet hypotension. Patient not on antihypertensive medication. 09/21: Alprazolam and oxycodone discontinued. I talked to the patient's and she stated he is more confused probably due to oxycodone. Patient was on tramadol before and somehow got discontinued. Prescription for tramadol given. Patient does not have UTI as he does not have burning micturition or new change in your age also benign showing 3+ bacteria therefore asymptomatic bacteriuria. Urine culture on 09/16 was negative. 2. Debility -PT/OT consultation - ECF placement at discharge as deemed necessary by PT and OT recommendation -Case management consulted 09/21: Patient had a fall. No acute intracranial abnormality. PT and OT ordered. 3. Recent recurrent right shoulder dislocation -Last admission with discharge 08/31/2022 CT showed a impacted Hill-Sachs lesion of the right humeral head -Plan was for nonweightbearing with passive range of motion but patient could not follow with Dr. Valladares. Dr. Valladares consulted was consulted as per 's request. Repeat right shoulder x-ray shows shows no acute abnormality but degenerative changes of AC joint and rotator cuff arthropathy. Continue PT and OT Patient had CT of right shoulder which reported degenerative change of the AC joint with prominent 1 cm pannus. Patient has history of possible Hill-Sachs lesion at right humeral head, chronic dislocation and degenerative changes. Patient was seen by Dr. Valladares during August 2022 admission. I called consult and left a voice message on phone after the requested consult as he could not follow-up in the office. X-ray of right shoulder ordered 09/20: Discussed with Dr. Valladares on 09/19 09/21: I talked to the patient's and talked about x-ray finding of right shoulder. Small degenerative changes and arthritis and rotator cuff arthropathy which needs aggressive PT and OT. Dr. Valladares called me to cancel the consult as he does not see any acute intervention needed. Consult canceled. Follow-up with Dr. Valladares in office in 2 weeks COPD -Patient with [id number] history -Previous PFTs done and are consistent with COPD -Will schedule and add some as needed aerosols as patient does have some wheezing on exam -Doubt patient will be able to be compliant with incentive spirometry based on mental status -Patient is not on any baseline inhalers -We will recommend outpatient follow-up with pulmonary medicine after discharge Continue bronchodilator as needed. BPH -Continue home Flomax Parkinson's disease with recurrent falls -Continue home carbidopa levodopa -PT/OT consultation Chronic constipation -Continue MiraLAX Depression/insomnia -Hold home Seroquel with depressed mentation -Will substitute low-dose Risperdal at at bedtime -continue home Lexapro Dementia -Suspect above issues are complicating his dementia DVT prophylaxis -Subcu Lovenox -SCDs CODE STATUS -DNR CCA with no intubation Discharge medication reconciliation done. Discharge follow-up instructions completed. Discharge process discussed with the patient and all questions were answered to patient's satisfaction. Total time spent, exact 35 minutes on discharge meds reconciliation, examination, coordination of care with nurses and ancillary staff, review of imaging and blood test and discussion with the patient on follow-up instructions. Laboratory Results 09/20/22 23:28: Urine Color Yellow, Urine Clarity Clear, Urine pH 8.0, Ur Specific [place] 1.015, Urine Protein Negative, Urine Glucose (UA) Normal, Urine Ketones 50 H, Urine Occult Blood Negative, Urine Nitrite Negative, Urine Bilirubin Negative, Urine Urobilinogen 1 H, Ur Leukocyte Esterase 25 H, Urine RBC 0 SEEN, Urine WBC 0-5 SEEN, Ur Squamous Epith Cells 0-5 SEEN, Amorphous Sediment 1+, Urine Bacteria 3+, Urine Mucus 0 SEEN Clinical Impression(s) from Imaging Studies Brain CT 09/18/22 15:36 IMPRESSION: Chronic involutional changes of the brain. Electronically Signed: Zuhair Bonner MD at 16:43 EST , Shoulder X-Ray 09/19/22 15:40 IMPRESSION: No acute bony abnormality. Probable rotator cuff arthropathy. Electronically Signed: Robi Garcia MD at 16:01 EST , Brain CT 09/20/22 20:30 IMPRESSION: Volume loss with chronic white matter changes. No acute intracranial findings. Electronically Signed: Robi Garcia MD at 21:29 EST , Medications at Discharge Home Medications walker #1 ea 04/14/20 carbidopa 25 mg-levodopa 100 mg tablet (Sinemet) 1 tab PO TIDCM@0900,1300,1800 parkinsons 02/24/21 carbidopa ER 50 mg-levodopa 200 mg tablet,extended release 1 tab PO 0900,2200 parkinsons 12/07/21 tamsulosin 0.4 mg capsule 0.4 mg PO QHS BPH 30 days #30 caps 07/17/22 polyethylene glycol 3350 17 gram/dose oral powder (Miralax) 17 g PO DAILY CONSTIPATION 07/25/22 escitalopram oxalate 10 mg tablet 10 mg PO QHS DEPRESSION #90 tabs 08/23/22 quetiapine 25 mg tablet 25 mg PO BID 30 days #60 tabs 09/12/22 acetaminophen 500 mg tablet 1,000 mg PO Q8H PAIN 09/18/22 calcium carbonate 500 mg calcium (1,250 mg) chewable tablet 500 mg PO BIDCM 09/18/22 food supplemt, lactose-reduced 0.08 gram-1.5 kcal/mL oral liquid (Ensure Plus High Protein) 120 ml PO 4X/DAY SUPPLEMENT 09/18/22 menthol 0.44 %-zinc oxide 20.6 % topical ointment (Calmoseptine) 1 applic topical BID 09/18/22 sennosides 8.6 mg-docusate sodium 50 mg tablet (Senna Plus) 2 tab-cap PO BID 09/18/22 ipratropium 0.5 mg-albuterol 3 mg (2.5 mg base)/3 mL nebulization soln 3 ml inhalation Q6HWA.RT PRN SOB #0 mL 09/21/22 tramadol 50 mg tablet 50 mg PO TID PRN PRN Pain Score 6-10 3 days #7 tabs 09/21/22 Physical Exam Narrative Please see progress note of the same date. Medical Records Data Medical Nutrition Assessment Dietitian: Malnutrition Criteria Met Start: 09/19/22 11:10 Freq: Status: Active Protocol: Document 09/19/22 11:10 RMA (Rec: 09/19/22 11:10 RMA [id number]) Nutrition Malnutrition Evidence of Malnutrition Exists Yes Malnutrition (severe): Chronic Evidenced By Suboptimal Energy Intake ( Moderate),Weight Loss (Severe) ,Physical Changes (Moderate) Clinical Problem Chronic Disease or Condition Related Malnutrition Etiology Moderate to severe protein- calorie malnutrition in the context of chronic disease and debility related to inadequate oral intake Signs/Symptoms as evidenced by ~3-5% wt loss x 1-2 months, inadequate oral intake at meals meeting less than 50-75% estimated nutrition needs x past 1 month and visible muscle/fat wasting in the clavicle, orbitals and temporal regions Status Active Problem Recommendation Dietitian Recommendations/Changes Will liberalize diet to regular given signs/symptoms of malnutrition with easy-to- chew meats/thin liquids. Will continue 120ml ensure plus with medpass 4 times per day. Will add ensure pudding BID with meals as tolerated. Weight / BMI Weight Weight: 131 lb 6.328 oz Body Mass Index (BMI) 20.5 ABG / Lab / Microbiology Data Result Diagrams: 09/19/22 06:04 09/19/22 06:04 Laboratory: Laboratory Results - last 24 hr 09/20/22 23:28: Urine Color Yellow, Urine Clarity Clear, Urine pH 8.0, Ur Specific [place] 1.015, Urine Protein Negative, Urine Glucose (UA) Normal, Urine Ketones 50 H, Urine Occult Blood Negative, Urine Nitrite Negative, Urine Bilirubin Negative, Urine Urobilinogen 1 H, Ur Leukocyte Esterase 25 H, Urine RBC 0 SEEN, Urine WBC 0-5 SEEN, Ur Squamous Epith Cells 0-5 SEEN, Amorphous Sediment 1+, Urine Bacteria 3+, Urine Mucus 0 SEEN Radiography Diagnostic Testing: Radiology Impression Brain CT 09/20/22 20:30 IMPRESSION: Volume loss with chronic white matter changes. No acute intracranial findings. Electronically Signed: Robi Garcia MD at 21:29 EST Reading Location ID and State: [facility] [place] Tel , Service support , Meaningful Use Info Meaningful Use Diagnoses (Choose all that apply): None applicable Discharge Plan Admission Admit Date/Time: 09/18/22 17:13 Primary Reason for Your Visit: Fall and physical debility, Parkinson disease and dementia Attending Provider: Yuri Villafana Primary Care Provider: Casper Do Consulting Providers: Radha Driver Discharge Orders/Prescriptions Prescriptions: New ipratropium-albuterol 0.5 mg-3 mg(2.5 mg base)/3 mL Solution For Nebulization 3 ml inhalation Q6HWA.RT PRN (Reason: SOB) Qty: 0 0RF tramadol 50 mg Tablet 50 mg PO TID PRN PRN (Reason: Pain Score 6-10) 3 Days Qty: 7 0RF Continued (DME) walker Qty: 1 0RF Rx Instructions: Walker with wheels, brakes, and seat carbidopa-levodopa [Sinemet] 25-100 mg Tablet 1 tab PO TIDCM@0900,1300,1800 carbidopa-levodopa 50-200 mg Tablet Extended Release 1 tab PO 0900,2200 polyethylene glycol 3350 [Miralax] 17 gram/dose Powder 17 g PO DAILY quetiapine 25 mg Tablet 25 mg PO BID 30 Days Qty: 60 0RF sennosides-docusate sodium [Senna Plus] 8.6-50 mg Tablet 2 tab-cap PO BID calcium carbonate 500 mg calcium (1,250 mg) Tablet,Chewable 500 mg PO BIDCM menthol-zinc oxide [Calmoseptine] 0.44-20.6 % Ointment 1 applic TOPICAL BID Ensure Plus High Protein 0.08 gram-1.5 kcal/mL Liquid 120 ml PO 4X/DAY acetaminophen 500 mg tablet 1,000 mg PO Q8H tamsulosin 0.4 mg capsule 0.4 mg PO QHS 30 Days Qty: 30 3RF escitalopram oxalate 10 mg tablet 10 mg PO QHS Qty: 90 0RF Discontinued oxycodone 5 mg Tablet 10 mg PO Q4H PRN PRN (Reason: Pain Score 6-10) 3 Days Qty: 18 0RF lorazepam 1 mg tablet 1 mg PO Q6H PRN (Reason: ANXIETY/RESTLESSNESS/SLEEP) Referrals / Follow Up: Casper Do DO [Primary Care Provider] - Within 2 Weeks Yong Valladares MD [Med Staff - Active Staff] - Within 2 Weeks (For right shoulder arthritis/frozen shoulder) Davion Clement MD [Non-Staff] - Within 1 Month (For Parkinson disease worsening. Recurrent fall) Disposition Disposition (needs filled in before D/C Order can be placed): [facility] Facility Charges/Coding Addendum Addendum: Please cancel the billing charge of the progress note of the same date. Visit Charges Inpatient E&M: 67322 Disch Hosp
--- NOTE | 2022-09-21 15:18 | CASEMGMT ---
Patient was accepted at [facility] and he is ready for discharge. SANDRA completed 7000 on HENS. Astrid d/c shipping assistant arranged discharge. Plan: d/c to [facility] under skilled level of care on a 7000. [facility] transported via cot. Samara BENOIT
--- NOTE | 2022-09-21 15:28 | CASEMGMT ---
Discharge Truck Chauffeur This personal lines underwriter sent d/c orders to [facility] via [facility]. [facility] will transport patient. superintendent stevedoring time is 4:30pm. Nursing staff made aware. Gennaro HOU Crop Grain Or Livestock Farm Manager
[2022-09-21 17:30] VITALS: BP 118/80; PULSE 83; RESP 16; TEMP 36.7; O2SAT 97
== END 2022-09-21 16:41 | disposition skilled nursing facility (03) | DRG 92 ==
LOC: ED 16:35 → PCU 16:49
PROVIDERS: Admitting Provider Internal Medicine; Emergency Provider Emergency Medicine; PCP Family Medicine; Visit Provider Internal Medicine
DX: G92.8 Other toxic encephalopathy (principal); E44.0 Moderate protein-calorie malnutrition; F03.90 Unspecified dementia, unspecified severity, without behavioral disturbance, psychotic disturbance, mood disturbance, and anxiety; G20 Parkinson's disease; J44.9 Chronic obstructive pulmonary disease, unspecified; K58.9 Irritable bowel syndrome, unspecified; I25.10 Atherosclerotic heart disease of native coronary artery without angina pectoris; M19.011 Primary osteoarthritis, right shoulder; K59.09 Other constipation; T40.2X5A Adverse effect of other opioids, initial encounter; S43.004D Unspecified dislocation of right shoulder joint, subsequent encounter; R62.7 Adult failure to thrive; Z87.891 Personal history of nicotine dependence; G89.29 Other chronic pain; R09.02 Hypoxemia; F32.A Depression, unspecified; Z66 Do not resuscitate; G47.00 Insomnia, unspecified; Z23 Encounter for immunization; Z87.440 Personal history of urinary (tract) infections; N40.0 Benign prostatic hyperplasia without lower urinary tract symptoms; Z68.20 Body mass index [BMI] 20.0-20.9, adult; R53.1 Weakness; R53.81 Other malaise
CPT/HCPCS: 36415; 36600; 70450; 73030; 80048; 80053; 80076; 81001; 82140; 82803; 83735; 84100; 84443; 84484; 85025; 90471; 92526; 92610; 93005; 94640; 97110; 97116; 97162; 97166; 97530; 97535; 99285; J7030; J7120; A4216

== ENCOUNTER 2022-09-23 22:05 | Emergency (ER) | payer MEDICARE, OTHER, SELFPAY ==
[2022-09-23 22:08] VITALS: BP 96/58; PULSE 69; RESP 17; TEMP 36.3; O2SAT 99; BMI 21.9
--- NOTE | 2022-09-23 22:34 | EKG12_ITS ---
Test Reason : AMS Blood Pressure : / mmHG Vent. Rate : 064 BPM Atrial Rate : 064 BPM P-R Int : 168 ms QRS Dur : 074 ms QT Int : 412 ms P-R-T Axes : 077 -59 016 degrees QTc Int : 425 ms Normal sinus rhythm Left axis deviation Low voltage QRS (Limb Leads) Abnormal ECG Confirmed by JUAQUIN SKINNER, BRENDEN ([id number]), newspaper or periodical editor HENRY UP ([id number]) on 09/26/2022 10:08:46 AM Referred By: Confirmed By:BRENDEN REZA MD
--- NOTE | 2022-09-23 22:36 | CT_ITS ---
INDICATION: ams, history of fall 2011 1522 EXAMINATION: CT BRAIN - CT Head or Brain W/O Contrast Injection TECHNIQUE: Multiple axial images were obtained of the head without intravenous contrast. A radiation dose optimization technique was used for this scan. IV Contrast dosage and agent: None. COMPARISON: 09/20/2022 FINDINGS: BRAIN PARENCHYMA: No intra- or extra-axial hemorrhage. No evidence of acute infarct. No intracranial mass or mass effect. Posterior fossa structures are unremarkable. Volume loss with low attenuation of the periventricular white matter typical of chronic small vessel disease. CSF SPACES: Appropriate for age. No hydrocephalus. Basal cisterns are patent. CALVARIUM, SKULL BASE, PARANASAL SINUSES AND MASTOID AIR CELLS: Clear. No acute fracture. CT/Brain/Head without Contrast IMPRESSION: Volume loss with chronic white matter changes. No acute intracranial findings. Electronically Signed: Robi Garcia MD at 23:56 EST ,
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
[2022-09-23 22:56] LABS: Bacteria 0 SEEN /hpf (None Seen); Mucous, Urine 0 SEEN /hpf (<or=2+); Red Blood Cells-Urine 0 SEEN /hpf (0-5); Squamous Epithelial Cells - UA 0 SEEN /hpf (0-5); White Blood Cells 0 SEEN /hpf (0-5)
[2022-09-23 23:00] LABS: Color, Urine Yellow (Yellow); Glucose, Dipstick Normal (Normal); Ketone-Dipstick 5 mg/dl (Negative); Leukocyte Esterase-Dipstick 25 /ul (Negative); Nitrite-Dipstick Negative (Negative); Occult Blood-Urine Negative /ul (Negative); Protein-Dipstick 15 mg/dl (Negative); Urine Bilirubin Dipstick Negative (Negative); Urine Clarity Clear (Clear); Urine Urobilinogen 1 mg/dl (Normal)
[2022-09-23 23:00] LABS: Absolute Lymphocyte Count 2.07 X10^3/uL (0.83-4.51); Absolute Neutrophil Count 5.4 X10^3/uL (2.0-7.7); Basophil# 0.06 X10^3/uL; Basophil% 0.7 % (0-1); Eosinophil# 0.31 X10^3/uL; Eosinophils% 3.6 % (0-5); Hematocrit 38.4 % (40-54); Hemoglobin 12.7 g/dL (13.0-16.5); Lymphocyte # 2.07 X10^3/ul (0.83-4.51); Lymphocyte % 23.7 % (19-41); Mean Corp Hgb Conc 33.1 g/dL (32-36); Mean Corpuscular Hgb 32.1 pg (27.0-32.0); Mean Platelet Vol. 11.2 fl (6.2-12.0); Monocyte# 0.73 X10^3/uL; Monocyte% 8.4 % (0-10); NRBC Flagged by Analyzer 0 % (0-5); Neutrophil # 5.42 X10^3/uL (2.7-7.7); Neutrophil % 62.1 % (47-70); Platelet Count 192 K/mm3 (150-450); RBC Distribution Width CV 13.5 % (11.6-14.6); RBC Distribution Width SD 48.8 fl (35.1-43.9); Red Blood Count 3.96 M/mm3 (4.6-6.2); White Blood Count 8.7 K/mm3 (4.4-11.0)
[2022-09-23] MEDS: 0.9% Normal Saline 1,000 ML 999 ML IV (23:10)
[2022-09-23 23:11] VITALS: BP 109/71
[2022-09-23 23:25] LABS: Anion Gap 4 (5-15); BUN 26 mg/dL (7-18); BUN/Creat Ratio 23.9 RATIO (10-20); Calcium,Total 8.6 mg/dL (8.5-10.1); Chloride 108 mmol/L (98-107); Creatinine, Serum 1.09 mg/dL (0.70-1.30); EST Glomerular Filtration Rate 70 mL/min (>60); Est Glom Filt Rate - Afr Amer 85 mL/min (>60); Estimated Creatinine Clearance 51.78 ml/min; Glucose 92 mg/dL (74-106); Potassium 4.1 mmol/L (3.5-5.1); Sodium Level 140 mmol/L (136-145); Troponin-I HS (w/2H Reflex) 6 pg/mL (3.0-78.0)
[2022-09-24 00:54] LABS: Reflex Troponin-HS? (from REC) Y
[2022-09-24 01:44] LABS: Troponin-I HS 9 pg/mL (3.0-78.0)
--- NOTE | 2022-09-24 02:30 | ED.RN ---
ETA FOR [facility]SP[facility] IS [id number]
[2022-09-24 02:34] VITALS: BP 112/70; PULSE 89; RESP 17; TEMP 36.8; O2SAT 99
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
--- NOTE | 2022-09-24 04:13 | ED.RN ---
UPDATE FROM [facility] ETA [id number]
== END 2022-09-24 02:49 | disposition home or self-care (01) ==
PROVIDERS: Emergency Provider Student in an Organized Health Care Education/Training Program; PCP Family Medicine; Visit Provider Student in an Organized Health Care Education/Training Program
DX: E86.0 Dehydration (principal); F03.90 Unspecified dementia, unspecified severity, without behavioral disturbance, psychotic disturbance, mood disturbance, and anxiety; J44.9 Chronic obstructive pulmonary disease, unspecified; I95.9 Hypotension, unspecified; I25.10 Atherosclerotic heart disease of native coronary artery without angina pectoris; Z87.891 Personal history of nicotine dependence
CPT/HCPCS: 70450; 80048; 81001; 84484; 85025; 93005; 96360; 99285; J7030; A4216

== ENCOUNTER 2023-03-13 19:23 | Emergency (ER) | payer MEDICARE, OTHER, SELFPAY ==
[2023-03-13 19:24] VITALS: BP 96/62; PULSE 101; RESP 17; TEMP 36; O2SAT 95; BMI 20.3
--- NOTE | 2023-03-13 19:52 | CT_ITS ---
EXAM: CT HEAD WITHOUT INTRAVENOUS CONTRAST CLINICAL INDICATION: Trauma TECHNIQUE: Multiple axial images were obtained of the head without intravenous contrast. This CT exam was performed using one or more of the following dose reduction techniques: automated exposure control, adjustment of the mA and/or kV according to patient size, and/or use of iterative reconstruction technique. COMPARISON: 09/23/2022 FINDINGS: BRAIN AND EXTRA-AXIAL SPACES: Ventricular system and cortical sulci are at the upper limits of normal in size. There is minimal hypoattenuation in the periventricular white matter. No intra- or extra-axial hemorrhage. No evidence of acute infarct. No intracranial mass or mass effect. There is preservation of the garcia/white matter interface. Posterior fossa structures are unremarkable. Basal cisterns are patent. BONES/JOINTS: Unremarkable. No discrete lytic or blastic abnormalities. SINUSES: Unremarkable as visualized. Clear. MASTOID AIR CELLS: Unremarkable. Clear. ORBITS: Visualized globes, extraocular muscles, optic nerves and retrobulbar fat appear unremarkable. CT/Brain/Head without Contrast IMPRESSION: 1. No acute intracranial abnormality. There has been no change from the reference exam. 2. Stable underlying senescent change with small vessel ischemia. Electronically Signed: Juan Sarmiento MD at 20:38 EDT ,
[2023-03-13] MEDS: Diphth,Pertuss(Acell),Tet Vac 0.5 ML Vial IM (20:00)
--- NOTE | 2023-03-14 00:31 | EX.ED.GENINJ ---
HPI History of Present Illness Chief Complaint: Head Injury Informant: spouse/S.O. Onset/Context/Timing Onset: Today Mechanism/Context: Fall Location: Frontal and right temporal area Worsened by: Nothing Relieved by: Nothing Associated Symptoms Associated Symptoms: Negative for Parasthesias, Loss of consciousness or Amnesia Narrative Narrative: Patient presents with head injury that occurred today. Patient fell while sitting in a chair. Patient has a history of Parkinson's disease and frequent falls. Patient hit the front of his head and the right side of his head. denies any loss of consciousness. denies any new paresthesias or weakness. is unsure of the patient's last tetanus. Patient is a poor informant and hard to understand. 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 Benign prostate hyperplasia Benign prostate hyperplasia Cervicalgia Chronic obstructive pulmonary disease Chronic pain Colitis COPD (chronic obstructive pulmonary disease) Coronary artery disease Coronary artery disease Debility Debility Debility Dementia Diarrhea Fecal incontinence Former smoker Frequent falls Generalized weakness Herniation of nucleus pulposus Hypokalemia IBS (irritable bowel syndrome) Parkinson disease Parkinson disease Parkinson's disease Parkinson's disease dementia Parkinson's disease dementia Raynauds disease Scoliosis deformity of spine Tobacco user Urinary frequency Urine incontinence Home Medications walker #1 ea 04/14/20 [Rx Last Taken Unknown] carbidopa 25 mg-levodopa 100 mg tablet (Sinemet) 1 tab PO TIDCM@0900,1300,1800 parkinsons 02/24/21 [History Last Taken 09/18/22 09:00] carbidopa ER 50 mg-levodopa 200 mg tablet,extended release 1 tab PO 0900,2200 parkinsons 12/07/21 [History Last Taken 09/18/22 13:00] polyethylene glycol 3350 17 gram/dose oral powder (Miralax) 17 g PO DAILY CONSTIPATION 07/25/22 [History Last Taken 09/17/22 05:25] quetiapine 25 mg tablet 25 mg PO BID 30 days #60 tabs 09/12/22 [Rx Last Taken 09/17/22 05:25] acetaminophen 500 mg tablet 1,000 mg PO Q8H PAIN 09/18/22 [History Last Taken 09/17/22 05:25] calcium carbonate 500 mg calcium (1,250 mg) chewable tablet 500 mg PO BIDCM 09/18/22 [History Last Taken 09/17/22 08:40] food supplemt, lactose-reduced 0.08 gram-1.5 kcal/mL oral liquid (Ensure Plus High Protein) 120 ml PO 4X/DAY SUPPLEMENT 09/18/22 [History Last Taken 09/17/22 05:25] menthol 0.44 %-zinc oxide 20.6 % topical ointment (Calmoseptine) 1 applic topical BID 09/18/22 [History Last Taken 09/17/22 05:26] sennosides 8.6 mg-docusate sodium 50 mg tablet (Senna Plus) 2 tab-cap PO BID 09/18/22 [History Last Taken 09/17/22 05:25] ipratropium 0.5 mg-albuterol 3 mg (2.5 mg base)/3 mL nebulization soln 3 ml inhalation Q6HWA.RT PRN SOB #0 mL 09/21/22 [Rx Last Taken Unknown] escitalopram oxalate 10 mg tablet 10 mg PO QHS DEPRESSION #90 tabs 02/01/23 [Rx Last Taken Unknown] tramadol 50 mg tablet 50 mg PO TID PRN PRN Pain Score 6-10 30 days #90 tabs 02/21/23 [Rx Last Taken Unknown] tamsulosin 0.4 mg capsule 0.4 mg PO QHS BPH 30 days #30 caps 02/26/23 [Rx Last Taken Unknown] Allergy/AdvReac Type Severity Reaction Status Date / Time pregabalin [From Lyrica] AdvReac hallucinati Verified 09/23/22 22:12 ons Family History Brother Alcoholism Father Heart disease Myocardial infarction Uncle Heart disease Myocardial infarction Grandfather Heart disease Myocardial infarction Mother Heart disease Surgical History History of cataract surgery History of colonoscopy History of left hip hemiarthroplasty History of tonsillectomy Social History household members: spouse Smoking Status: Former smoker how long ago did patient quit smokin alcohol intake: never substance use type: does not use what type of physical activity do you participate in: walking frequency: daily ROS ROS ED Constitutional Constitutional ED: Denies chills or fever(s) Eyes Eyes: Denies blurry vision or change in vision ENT ENT ED: Reports rhinorrhea; Denies sore throat Cardiovascular Cardiovascular: Denies chest pain or palpitations Respiratory/Chest Respiratory/Chest: Reports dyspnea; Denies cough Gastrointestinal Gastrointestinal: Denies nausea or vomiting Genitourinary Genitourinary ED: Denies dysuria or hematuria Musculoskeletal Musculoskeletal: Denies back pain or neck pain Integumentary Denies abscess or rash Neurologic Neurologic: Denies headache(s) or weakness Allergic/Immunologic Allergic/Immunologic ED: Denies mouth swelling or urticaria EXAM Physical Exam Const Vital Signs: 03/13/23 19:24 Temperature 96.8 F L Temperature Source Temporal Pulse Rate 101 H Respiratory Rate 17 Blood Pressure 96/62 Blood Pressure Mean 73 Pulse Ox 95 Oxygen Delivery Method Room Air Positive well nourished and well developed General Appearance ED: well developed and NAD HEENT HEENT Narrative: There is a superficial laceration over the frontal scalp. There is minimal gapping of the wound margins. There is no active bleeding. There is superficial abrasions over the right temporal area. There is no bleeding noted. There are no foreign bodies noted. There is no bony crepitance or step-off. Neck full ROM Resp normal respiratory effort and clear to auscultation bilaterally Cardio regular rhythm Rate: regular rate GI non-tender Palpation: soft Neuro CN's II-XII intact bilaterally, no focal motor deficits and no sensory deficits noted Sensorium / Orientation: alert MDM MDM MDM Narrative Medical decision making narrative: Georgina includes closed head injury, scalp laceration, and intracranial bleeding. CT scan of the brain will be obtained to assess for intracranial bleeding. Radiography Diagnostic Testing: Clinical Impression(s) from Imaging Studies Brain CT 03/13/23 19:52 IMPRESSION: 1. No acute intracranial abnormality. There has been no change from the reference exam. 2. Stable underlying senescent change with small vessel ischemia. Electronically Signed: Juan Sarmiento MD at 20:38 EDT , CT scan of the brain was obtained. There is no acute intracranial abnormality. This was interpreted by the radiologist and was also independently reviewed by myself. Treatment and Re-Evaluation Narrative: Patient was given a tetanus booster here. was advised of the findings. states that she will contact hospice to help with caring for the patient at home. does not want patient to be admitted to the hospital. She will care for the patient at home. understands and is agreeable with the plan. All questions were answered. Discharge Plan Triage Chief Complaint: Head Injury ED Provider: Thanh Mohan Dx/Rx/DC Orders Clinical Impression: Closed head injury, Parkinson disease, Fall Instructions: ED Head Injury (Adult) Prescriptions: No Action (DME) walker Qty: 1 0RF Rx Instructions: Walker with wheels, brakes, and seat carbidopa-levodopa [Sinemet] 25-100 mg Tablet 1 tab PO TIDCM@0900,1300,1800 carbidopa-levodopa 50-200 mg Tablet Extended Release 1 tab PO 0900,2200 polyethylene glycol 3350 [Miralax] 17 gram/dose Powder 17 g PO DAILY quetiapine 25 mg Tablet 25 mg PO BID 30 Days Qty: 60 0RF sennosides-docusate sodium [Senna Plus] 8.6-50 mg Tablet 2 tab-cap PO BID calcium carbonate 500 mg calcium (1,250 mg) Tablet,Chewable 500 mg PO BIDCM menthol-zinc oxide [Calmoseptine] 0.44-20.6 % Ointment 1 applic TOPICAL BID Ensure Plus High Protein 0.08 gram-1.5 kcal/mL Liquid 120 ml PO 4X/DAY acetaminophen 500 mg tablet 1,000 mg PO Q8H ipratropium-albuterol 0.5 mg-3 mg(2.5 mg base)/3 mL Solution For Nebulization 3 ml inhalation Q6HWA.RT PRN (Reason: SOB) Qty: 0 0RF escitalopram oxalate 10 mg tablet 10 mg PO QHS Qty: 90 0RF tramadol 50 mg tablet 50 mg PO TID PRN PRN (Reason: Pain Score 6-10) 30 Days Qty: 90 0RF Rx Instructions: Do not fill before 12/27/2022 tamsulosin 0.4 mg capsule 0.4 mg PO QHS 30 Days Qty: 30 3RF Primary Care Provider: Casper Do Referrals: Casper Do, [Primary Care Provider] - 3-5 Days Disposition Disposition: Home, Self Care Discharge Date/Time: 03/13/23 21:51
== END 2023-03-13 21:51 | disposition home or self-care (01) ==
PROVIDERS: Emergency Provider Emergency Medicine; PCP Family Medicine; Visit Provider Emergency Medicine
DX: S09.90XA Unspecified injury of head, initial encounter (principal); G20 Parkinson's disease; J44.9 Chronic obstructive pulmonary disease, unspecified; I25.10 Atherosclerotic heart disease of native coronary artery without angina pectoris; Z87.891 Personal history of nicotine dependence; W19.XXXA Unspecified fall, initial encounter; Z23 Encounter for immunization
CPT/HCPCS: 70450; 90471; 90715; 99282

== ENCOUNTER → 2023-03-25 | Outpatient (CLI) | payer MEDICARE, OTHER, SELFPAY ==
[2023-03-25 16:38] LABS: Bacteria 0 SEEN /hpf (None Seen)
[2023-03-25 17:04] LABS: Color, Urine Yellow (Yellow); Glucose, Dipstick Normal (Normal); Ketone-Dipstick 5 mg/dl (Negative); Leukocyte Esterase-Dipstick 25 /ul (Negative); Nitrite-Dipstick Negative (Negative); Occult Blood-Urine 10 /ul (Negative); Protein-Dipstick 15 mg/dl (Negative); Specific Gravity, Urine 1.025 (1.002-1.030); Urine Bilirubin Dipstick Negative (Negative); Urine Clarity Sl. Cloudy (Clear); Urine Urobilinogen 4 mg/dl (Normal)
[2023-03-25 17:22] LABS: Mucous, Urine 3+ /hpf (<or=2+); Red Blood Cells-Urine 0-5 SEEN /hpf (0-5); Squamous Epithelial Cells - UA 0-5 SEEN /hpf (0-5); White Blood Cells 0-5 SEEN /hpf (0-5)
== END | disposition home or self-care (01) ==
PROVIDERS: PCP Family Medicine; Referring Provider Nurse Practitioner Family; Visit Provider Nurse Practitioner Family
DX: R41.3 Other amnesia (principal)
CPT/HCPCS: 81001; 87077; 87086; 87088; 87186

== ENCOUNTER 2023-04-06 15:45 | Observation (INO) | payer MEDICARE, OTHER, SELFPAY ==
[2023-04-06 15:53] VITALS: BP 111/70; PULSE 90; RESP 18; TEMP 36.5; O2SAT 95; BMI 20.5
--- NOTE | 2023-04-06 16:24 | EKG12_ITS ---
Test Reason : Blood Pressure : / mmHG Vent. Rate : 089 BPM Atrial Rate : 089 BPM P-R Int : 144 ms QRS Dur : 086 ms QT Int : 378 ms P-R-T Axes : -13 -50 063 degrees QTc Int : 459 ms Normal sinus rhythm Left anterior fascicular block Abnormal ECG Confirmed by BUFFY SKINNER, JIADEN ([id number]), web editor HENRY UP ([id number]) on 04/08/2023 12:42:01 PM Referred By: Confirmed By:JAIDEN BAER MD
--- NOTE | 2023-04-06 16:32 | CT_ITS ---
STUDY: CT BRAIN WITHOUT CONTRAST REASON FOR EXAM: Male, 77 years old. confusion, trauma RADIATION DOSAGE (If Supplied By Facility): CTDIvol = ( 20.08 ) mGy, DLP = ( 355.24 ) mGycm TECHNIQUE: Transaxial CT imaging of the brain was performed without administration of intravenous contrast material. Individualized dose optimization techniques were used for this CT. COMPARISON: 03/13/2023 FINDINGS: Normal soft tissue structures. Normal calvarium. There is mild cerebral atrophy with widening of the extra-axial spaces and ventricular dilatation. There are areas of decreased attenuation within the white matter tracts of the supratentorial brain, consistent with microvascular disease changes. Normal basal ganglia and thalami. Normal brainstem. There is mild cerebellar atrophy. There is no intracranial hemorrhage. There are no findings of an acute ischemic infarction. Normal visualized paranasal sinuses. CT/Brain/Head without Contrast IMPRESSION: Chronic involutional changes of the brain. No change or acute abnormality. Electronically Signed: Shawn Tenorio MD at 18:01 EDT ,
--- NOTE | 2023-04-06 16:33 | EDS_ITS ---
HPI History of Present Illness Chief Complaint: Mental Health Informant: patient Narrative Narrative: Only patient is in the room when I see him. I reviewed the triage note and he evidently got agitated while driving tried to grab the emergency brake and steering wheel. He cannot tell me any of this. He does not know why he is here. He states sometimes he comes down here for medical things. He thinks it is 1973 and he is 34 years old. He has no complaint at all with me. He evidently does have a history of Parkinson's and dementia. Reviewing his past records, he has frequent falls. He did have a CT of his head about 3 weeks ago. I have no report of recent falls. 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 Benign prostate hyperplasia Benign prostate hyperplasia Cervicalgia Chronic obstructive pulmonary disease Chronic pain Colitis COPD (chronic obstructive pulmonary disease) Coronary artery disease Coronary artery disease Debility Debility Debility Dementia Diarrhea Fecal incontinence Former smoker Frequent falls Generalized weakness Herniation of nucleus pulposus Hypokalemia IBS (irritable bowel syndrome) Parkinson disease Parkinson disease Parkinson's disease Parkinson's disease dementia Parkinson's disease dementia Raynauds disease Scoliosis deformity of spine Tobacco user Urinary frequency Urine incontinence Home Medications walker #1 ea 04/14/20 [Rx Last Taken Unknown] carbidopa 25 mg-levodopa 100 mg tablet (Sinemet) 1 tab PO TIDCM@0900,1300,1800 parkinsons 02/24/21 [History Last Taken 09/18/22 09:00] carbidopa ER 50 mg-levodopa 200 mg tablet,extended release 1 tab PO 0900,2200 parkinsons 12/07/21 [History Last Taken 09/18/22 13:00] polyethylene glycol 3350 17 gram/dose oral powder (Miralax) 17 g PO DAILY CONSTIPATION 07/25/22 [History Last Taken 09/17/22 05:25] quetiapine 25 mg tablet 25 mg PO BID 30 days #60 tabs 09/12/22 [Rx Last Taken 09/17/22 05:25] acetaminophen 500 mg tablet 1,000 mg PO Q8H PAIN 09/18/22 [History Last Taken 09/17/22 05:25] calcium carbonate 500 mg calcium (1,250 mg) chewable tablet 500 mg PO BIDCM 09/18/22 [History Last Taken 09/17/22 08:40] food supplemt, lactose-reduced 0.08 gram-1.5 kcal/mL oral liquid (Ensure Plus High Protein) 120 ml PO 4X/DAY SUPPLEMENT 09/18/22 [History Last Taken 09/17/22 05:25] menthol 0.44 %-zinc oxide 20.6 % topical ointment (Calmoseptine) 1 applic topical BID 09/18/22 [History Last Taken 09/17/22 05:26] sennosides 8.6 mg-docusate sodium 50 mg tablet (Senna Plus) 2 tab-cap PO BID 09/18/22 [History Last Taken 09/17/22 05:25] ipratropium 0.5 mg-albuterol 3 mg (2.5 mg base)/3 mL nebulization soln 3 ml inhalation Q6HWA.RT PRN SOB #0 mL 09/21/22 [Rx Last Taken Unknown] escitalopram oxalate 10 mg tablet 10 mg PO QHS DEPRESSION #90 tabs 02/01/23 [Rx Last Taken Unknown] tamsulosin 0.4 mg capsule 0.4 mg PO QHS BPH 30 days #30 caps 02/26/23 [Rx Last Taken Unknown] tramadol 50 mg tablet 50 mg PO Q6H PRN Pain Score 6-10 30 days #120 tabs 03/19/23 [Rx Last Taken Unknown] Allergy/AdvReac Type Severity Reaction Status Date / Time pregabalin [From Lyrica] AdvReac hallucinati Verified 04/06/23 15:52 ons Family History Brother Alcoholism Father Heart disease Myocardial infarction Uncle Heart disease Myocardial infarction Grandfather Heart disease Myocardial infarction Mother Heart disease Surgical History History of cataract surgery History of colonoscopy History of left hip hemiarthroplasty History of tonsillectomy Social History household members: spouse Smoking Status: Former smoker how long ago did patient quit smokin alcohol intake: never substance use type: does not use what type of physical activity do you participate in: walking frequency: daily ROS ROS ED ROS Narrative A complete review of systems was not able to be accurately performed. Patient's not able to tell me any useful information I have no others here to assist with review of systems. EXAM Physical Exam Narrative Exam Narrative: Patient is awake alert. He is actually pleasant when I walk in the room. He has clear speech. HEENT shows no sign of trauma. He does look thin. Mucous membranes are reasonably moist. Neck is supple no tenderness Lungs are clear bilaterally and saturations are normal at 95% on room air showing no hypoxia. Heart sounds regular. I hear no murmur. He has peripheral pulses that are good and normal. Abdomen is soft completely nontender. Spine shows no tenderness. Extremities show multiple abrasions and contusions. In various stages of healing. But there is no tenderness or deformities. Neurologically he is awake alert. His speech is clear. But he has trouble staying on task. He does not know where he is. He thinks it is 1973. He thinks his age is 34. Const Vital Signs: 04/06/23 15:53 04/06/23 20:09 Temperature 97.7 F L Temperature Source Oral Pulse Rate 90 80 Respiratory Rate 18 14 Blood Pressure 111/70 127/80 H Blood Pressure Mean 83 95 Pulse Ox 95 95 Oxygen Delivery Method Room Air Room Air MDM MDM MDM Narrative Medical decision making narrative: Patient CBC is overall normal. Patient's electrolytes are normal. Glucose is reasonably controlled. Graph patient's alcohol is negative. Patient's toxicology screen is negative. My independent interpretation of the patient's CT of the head shows atrophy but no acute bleed or mass. This is consistent with the final read. Patient's states she can no longer really care for him safely at home. His outburst get too much. We will have crisis see him as he may need placement for geropsych. He is medically cleared for psychiatric evaluation and admission if needed. Patient's came in. She was not available when I's first saw the patient. Evidently she has already made arrangements with [facility] for this patient. She cannot care for him safely at home anymore. They are just waiting on some completion of final paperwork. She does not want him adm itted to geropsychiatry. We will admit the patient here to work toward half-way placement. Case was discussed with hospitalist. Lab Data Attestation: I reviewed the patient's lab results. Labs: Laboratory Results - last 24 hr 04/06/23 04/06/23 16:45 17:35 WBC 7.8 RBC 4.32 L Hgb 13.0 Hct 41.4 MCV 95.8 H MCH 30.1 MCHC 31.4 L RDW Std Deviation 46.6 H RDW Coeff of Boni 13.1 Plt Count 200 MPV 10.9 Immature Gran % (Auto) 0.900 Neut % (Auto) 72.3 H Lymph % (Auto) 17.0 L [place] % (Auto) 7.9 Eos % (Auto) 1.3 Baso % (Auto) 0.6 Absolute Neuts (auto) 5.7 Absolute Lymphs (auto) 1.33 Nucleated RBC % 0 Sodium 142 Potassium 4.1 Chloride 110 H Carbon Dioxide 27.0 Anion Gap 5 BUN 18 Creatinine 1.16 Estim Creat Clear Calc 45.67 Est GFR (MDRD) Af Amer 79 Est GFR (MDRD) Non-Af 65 BUN/Creatinine Ratio 15.5 Glucose 109 H Calcium 8.8 Urine Opiates Screen NEGATIVE Urine Methadone Screen NEGATIVE Ur Barbiturates Screen NEGATIVE Ur Phencyclidine Scrn NEGATIVE Ur Amphetamines Screen NEGATIVE MDMA (Ecstasy) Screen NEGATIVE U Benzodiazepines Scrn NEGATIVE Urine Cocaine Screen NEGATIVE U Cannabinoids Screen NEGATIVE Ur Drug Screen Comment Ethyl Alcohol < 3.0 Radiography Diagnostic Testing: Clinical Impression(s) from Imaging Studies Brain CT 04/06/23 16:32 IMPRESSION: Chronic involutional changes of the brain. No change or acute abnormality. Electronically Signed: Shawn Tenorio MD at 18:01 EDT , EKG Initial EKG: Comments: My independent interpretation the patient's EKG done as part of medical work-up shows normal sinus rhythm. Overall rate of 89. Mild irregular baseline but no ventricular ectopy. No acute ST elevation or depression. IL interval, QRS duration and QTc are normal. Management Discussion w/another healthcare provider: Hospitalist Discharge Plan Triage Chief Complaint: Mental Health ED Provider: Andrew Medrano Dx/Rx/DC Orders Clinical Impression: Alzheimer's dementia with agitation, Hx of Parkinson's disease, Unable to care for self Prescriptions: No Action (DME) walker Qty: 1 0RF Rx Instructions: Walker with wheels, brakes, and seat carbidopa-levodopa [Sinemet] 25-100 mg Tablet 1 tab PO TIDCM@0900,1300,1800 carbidopa-levodopa 50-200 mg Tablet Extended Release 1 tab PO 0900,2200 polyethylene glycol 3350 [Miralax] 17 gram/dose Powder 17 g PO DAILY quetiapine 25 mg Tablet 25 mg PO BID 30 Days Qty: 60 0RF sennosides-docusate sodium [Senna Plus] 8.6-50 mg Tablet 2 tab-cap PO BID calcium carbonate 500 mg calcium (1,250 mg) Tablet,Chewable 500 mg PO BIDCM menthol-zinc oxide [Calmoseptine] 0.44-20.6 % Ointment 1 applic TOPICAL BID Ensure Plus High Protein 0.08 gram-1.5 kcal/mL Liquid 120 ml PO 4X/DAY acetaminophen 500 mg tablet 1,000 mg PO Q8H ipratropium-albuterol 0.5 mg-3 mg(2.5 mg base)/3 mL Solution For Nebulization 3 ml inhalation Q6HWA.RT PRN (Reason: SOB) Qty: 0 0RF escitalopram oxalate 10 mg tablet 10 mg PO QHS Qty: 90 0RF tamsulosin 0.4 mg capsule 0.4 mg PO QHS 30 Days Qty: 30 3RF tramadol 50 mg tablet 50 mg PO Q6H PRN (Reason: Pain Score 6-10) 30 Days Qty: 120 0RF Rx Instructions: Do not fill before 12/27/2022 Primary Care Provider: Casper Do Referrals: Casper Do, [Primary Care Provider] - Disposition Disposition: Acute Care Hospital [facility] [place] [facility]
[2023-04-06 16:55] LABS: Absolute Lymphocyte Count 1.33 X10^3/uL (0.83-4.51); Absolute Neutrophil Count 5.7 X10^3/uL (2.0-7.7); Basophil# 0.05 X10^3/uL; Basophil% 0.6 % (0-1); Eosinophils% 1.3 % (0-5); Hematocrit 41.4 % (40-54); Lymphocyte # 1.33 X10^3/ul (0.83-4.51); Mean Corp Hgb Conc 31.4 g/dL (32-36); Mean Corpuscular Hgb 30.1 pg (27.0-32.0); Mean Corpuscular Volume 95.8 fL (80-94); Mean Platelet Vol. 10.9 fl (6.2-12.0); Monocyte# 0.62 X10^3/uL; Monocyte% 7.9 % (0-10); NRBC Flagged by Analyzer 0 % (0-5); Neutrophil # 5.67 X10^3/uL (2.7-7.7); Neutrophil % 72.3 % (47-70); Platelet Count 200 K/mm3 (150-450); RBC Distribution Width CV 13.1 % (11.6-14.6); RBC Distribution Width SD 46.6 fl (35.1-43.9); Red Blood Count 4.32 M/mm3 (4.6-6.2); White Blood Count 7.8 K/mm3 (4.4-11.0)
[2023-04-06 17:09] LABS: Anion Gap 5 (5-15); BUN 18 mg/dL (7-18); BUN/Creat Ratio 15.5 RATIO (10-20); Calcium,Total 8.8 mg/dL (8.5-10.1); Chloride 110 mmol/L (98-107); Creatinine, Serum 1.16 mg/dL (0.70-1.30); EST Glomerular Filtration Rate 65 mL/min (>60); Est Glom Filt Rate - Afr Amer 79 mL/min (>60); Estimated Creatinine Clearance 45.67 ml/min; Glucose 109 mg/dL (74-106); Potassium 4.1 mmol/L (3.5-5.1); Sodium Level 142 mmol/L (136-145)
[2023-04-06 17:14] LABS: Alcohol, Blood (Medical)-Serum < 3.0 mg/dL
[2023-04-06 18:15] LABS: Amphetamine Urine VISTA NEGATIVE (<1000 ng/mL); Barbiturate Urine VISTA NEGATIVE (< 200 ng/mL); Benzodiazepine Urine VISTA NEGATIVE (< 200 ng/mL); Cocaine Urine VISTA NEGATIVE (< 300 ng/mL); Ecstacy Urine VISTA NEGATIVE (< 500 ng/mL); Methadone Urine VISTA NEGATIVE (< 300 ng/mL); PCP Urine VISTA NEGATIVE (< 25 ng/mL); THC Urine VISTA NEGATIVE (< 50 ng/mL); Vista UDS pH Range 6
[2023-04-06 20:09] VITALS: BP 127/80; PULSE 80; RESP 14; O2SAT 95
--- NOTE | 2023-04-06 21:37 | NURSING ---
CRISIS WAS ALREADY AT HOSPITAL SO I INFORMED KEITH OF PATIENT AT 2129
[2023-04-06 23:19] VITALS: BP 118/72; PULSE 84; RESP 18; TEMP 36.6; O2SAT 94
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
[2023-04-06 23:57] VITALS: BMI 20.3
[2023-04-07 00:03] VITALS: BP 130/84; PULSE 103; RESP 16; TEMP 36.5; O2SAT 95
[2023-04-07] MEDS: Senna/Docusate Sodium 1 Tablet 2 TABLET PO ×2 (00:40→09:32)
[2023-04-07] MEDS: Tamsulosin HCl 0.4 MG Capsule PO (00:40)
[2023-04-07] MEDS: QUEtiapine 25 MG Tablet PO ×2 (00:40→09:33)
[2023-04-07] MEDS: Escitalopram Oxalate 10 MG Tablet PO (00:40)
[2023-04-07] MEDS: Neomycin/Bacitracin/Polymyxin Ointment 1 APPLIC TOPICAL (00:41)
[2023-04-07] MEDS: CARBIDOPA/LEVODOPA CR 50/200 Tablet PO ×2 (00:44→09:33)
[2023-04-07 06:00] VITALS: BP 128/79; PULSE 79; RESP 16; TEMP 36.6; O2SAT 97
[2023-04-07 07:03] VITALS: PULSE 84; RESP 18; O2SAT 92
[2023-04-07] MEDS: Budesonide Respules 0.5 MG/2 ML AMPUL.NEB. INHALATION (07:03)
--- NOTE | 2023-04-07 07:48 | PN.HOSP_ITS ---
Reason for Visit Reason for Visit: Diagnoses Adult failure to thrive (04/06/23) Subjective Subjective Confused. Denies complaints. Objective Data Objective Data Vital Signs: Vital Signs Temp Pulse Resp BP Pulse Ox O2 Del Method 36.6 C 84 18 128/79 H 92 Room Air 04/07/23 06:00 04/07/23 07:03 04/07/23 07:03 04/07/23 06:00 04/07/23 07:03 04/07/23 07:03 Oxygen Delivery Method Room Air Weight: 59 kg Body Mass Index (BMI) 20.3 Intake & Output: Intake and Output for Last 24 Hours 04/05/23 04/06/23 04/07/23 23:59 23:59 23:59 Intake Total 200 / 200 Balance 200 / 200 Lab / Micro Data 04/06/23 16:45 04/06/23 16:45 Labs: Laboratory Results - last 24 hr 04/06/23 16:45: WBC 7.8, RBC 4.32 L, Hgb 13.0, Hct 41.4, MCV 95.8 H, MCH 30.1, MCHC 31.4 L, RDW Std Deviation 46.6 H, RDW Coeff of Boni 13.1, Plt Count 200, MPV 10.9, Immature Gran % (Auto) 0.900, Neut % (Auto) 72.3 H, Lymph % (Auto) 17.0 L, [place] % (Auto) 7.9, Eos % (Auto) 1.3, Baso % (Auto) 0.6, Absolute Neuts (auto) 5.7, Absolute Lymphs (auto) 1.33, Nucleated RBC % 0, Sodium 142, Potassium 4.1, Chloride 110 H, Carbon Dioxide 27.0, Anion Gap 5, BUN 18, Creatinine 1.16, Estim Creat Clear Calc 45.67, Est GFR (MDRD) Af Amer 79, Est GFR (MDRD) Non-Af 65, BUN/Creatinine Ratio 15.5, Glucose 109 H, Calcium 8.8, Ethyl Alcohol < 3.0 04/06/23 17:35: Urine Opiates Screen NEGATIVE, Urine Methadone Screen NEGATIVE, Ur Barbiturates Screen NEGATIVE, Ur Phencyclidine Scrn NEGATIVE, Ur Amphetamines Screen NEGATIVE, MDMA (Ecstasy) Screen NEGATIVE, U Benzodiazepines Scrn NEGATIVE, Urine Cocaine Screen NEGATIVE, U Cannabinoids Screen NEGATIVE, Ur Drug Screen Comment Micro: Microbiology 04/06/23 16:40 Nasal Secretion SARS-CoV-2 Antigen (Rapid) - Final Radiography Diagnostic Testing: Radiology Impression Brain CT 04/06/23 16:32 IMPRESSION: Chronic involutional changes of the brain. No change or acute abnormality. Electronically Signed: Shawn Tenorio MD at 18:01 EDT , Physical Exam Const Constitutional Narrative: oriented to self. HEENT head/scalp atraumatic and moist oral mucous membranes Resp normal respiratory effort, no retractions, no use of accessory muscles and clear to auscultation bilaterally Cardio regular rate, regular rhythm, S1 normal heart sound and S2 normal heart sound GI normal to inspection, nondistended, normoactive bowel sounds, soft to palpation, non-tender and non-distended Assessment & Plan Assessment/Plan (1) Adult failure to thrive: PLAN: Adult failure to thrive with progressing Alzheimer's dementia with known agitation/behavioral disturbance history: Patient is a significant risk to himself as well his his spouse for his safety PT OT now wants to take him home. She told nursing that she understands the risks, but felt terrible that she told him he would be going to a retirement. (2) Alzheimer's dementia with agitation: QUALIFIERS: Alzheimer's disease onset: unspecified onset Dementia severity: severe Qualified Code(s): G30.9 - Alzheimer's disease, unspecified; F02.C11 - Dementia in other diseases classified elsewhere, severe, with agitation PLAN: present prior to arrival, however, likely to be exacerbated in the hospi jed setting. PRN haloperidol. Starting at 0.5 Q4h, could be escalated, if required. Quetiapine increased from home dose 25 QHS to BID. UDS negative DC tramadol. PLAN: Plan Chronic complicating conditions: * Chronic COPD: On room air, not on any chronic oxygen. PRN albuterol * Parkinson's disease: continue Sinemet * Anxiety and depression: continue escitalopram * AAA: Most recent imaging 02/23/2021 CT abdomen and pelvis with a 4.5 cm infrarenal abdominal aortic aneurysm, encourage continued outpatient evaluation and monitoring. * BPH: continue tamsulosin * Nonobstructive CAD: remote. no additional mgmt at this time DVT prophylaxis: Low risk, also preference for avoidance of SCDs/SC chemoprophylaxis as this may lead to unnecessary agitation. CODE status: DNR-CCA, no intubation. Disposition: to home w [facility]. Charges/Coding Visit Charges Inpatient E&M: 73277 Subs Hosp L2
[2023-04-07] MEDS: Polyethylene Glycol 3350 17 GM PACKET PO (09:32)
[2023-04-07] MEDS: Carbidopa/Levodopa 25/100 Tablet PO (09:33)
[2023-04-07] MEDS: Ensure Plus High Protein 120 ML LIQUID PO (09:39)
[2023-04-07 09:43] VITALS: BP 121/62; PULSE 79; RESP 16; TEMP 37.2; O2SAT 94
--- NOTE | 2023-04-07 10:26 | DCINST_ITS ---
Discharge Instructions Diet Discharge Diet: No restrictions Follow Up Care Test Results: Test results from this visit will be discussed in further detail at your follow- up appointment, if applicable. Discharge Plan Admission Admit Date/Time: 04/06/23 22:50 Primary Reason for Your Visit: failure to thrive. Attending Provider: Thanh Rhoades Primary Care Provider: Casper Do Consulting Providers: Delma Nunez Discharge Orders/Prescriptions Prescriptions: Continued (DME) walker Qty: 1 0RF Rx Instructions: Walker with wheels, brakes, and seat carbidopa-levodopa [Sinemet] 25-100 mg Tablet 1 tab PO TIDCM@0900,1300,1800 carbidopa-levodopa 50-200 mg Tablet Extended Release 1 tab PO 0900,2200 polyethylene glycol 3350 [Miralax] 17 gram/dose Powder 17 g PO PRN sennosides-docusate sodium [Senna Plus] 8.6-50 mg Tablet 2 tab-cap PO BID PRN menthol-zinc oxide [Calmoseptine] 0.44-20.6 % Ointment 1 applic TOPICAL BID Ensure Plus High Protein 0.08 gram-1.5 kcal/mL Liquid 120 ml PO 4X/DAY acetaminophen 500 mg tablet 1,000 mg PO Q8H ipratropium-albuterol 0.5 mg-3 mg(2.5 mg base)/3 mL Solution For Nebulization 3 ml inhalation Q6HWA.RT PRN (Reason: SOB) Qty: 0 0RF quetiapine 25 mg Tablet 25 mg PO BID Qty: 60 0RF escitalopram oxalate 10 mg tablet 10 mg PO QHS Qty: 90 0RF tamsulosin 0.4 mg capsule 0.4 mg PO QHS 30 Days Qty: 30 3RF tramadol 50 mg tablet 50 mg PO Q6H PRN (Reason: Pain Score 6-10) 30 Days Qty: 120 0RF Rx Instructions: Do not fill before 12/27/2022 Referrals / Follow Up: Casper Do DO [Primary Care Provider] - Within 2 Weeks Disposition Disposition (needs filled in before D/C Order can be placed): Home Health Service
--- NOTE | 2023-04-07 10:30 | DS.PCM_ITS ---
Providers Date of Admission: 04/06/23 Primary Care Physician: Dr. Casper Do, DO Reason For Visit: FTT ADULT Diagnosis Discharge Diagnosis (1) Adult failure to thrive: Status: Acute Code(s): R62.7 - Adult failure to thrive Plan: Adult failure to thrive with progressing Alzheimer's dementia with known rossana tation/behavioral disturbance history: Patient is a significant risk to himself as well his his spouse for his safety PT OT now wants to take him home. She told nursing that she understands the risks, but felt terrible that she told him he would be going to a fpc. (2) Alzheimer's dementia with agitation: Status: Acute Code(s): G30.9 - Alzheimer's disease, unspecified; F02.811 - Dementia in other diseases classified elsewhere, unspecified severity, with agitation Qualifiers: Alzheimer's disease onset: unspecified onset Dementia severity: severe Qualified Code(s): G30.9 - Alzheimer's disease, unspecified; F02.C11 - Dementia in other diseases classified elsewhere, severe, with agitation Plan: present prior to arrival, however, likely to be exacerbated in the hospital setting. PRN haloperidol. Starting at 0.5 Q4h, could be escalated, if required. Quetiapine increased from home dose 25 QHS to BID. UDS negative DC tramadol. Plan Chronic complicating conditions: * Chronic COPD: On room air, not on any chronic oxygen. PRN albuterol * Parkinson's disease: continue Sinemet * Anxiety and depression: continue escitalopram * AAA: Most recent imaging 02/23/2021 CT abdomen and pelvis with a 4.5 cm infrarenal abdominal aortic aneurysm, encourage continued outpatient evaluation and monitoring. * BPH: continue tamsulosin * Nonobstructive CAD: remote. no additional mgmt at this time DVT prophylaxis: Low risk, also preference for avoidance of SCDs/SC chemoprophylaxis as this may lead to unnecessary agitation. CODE status: DNR-CCA, no intubation. Disposition: to home w [facility]. Medications at Discharge Home Medications walker #1 ea 04/14/20 carbidopa 25 mg-levodopa 100 mg tablet (Sinemet) 1 tab PO TIDCM@0900,1300,1800 parkinsons 02/24/21 carbidopa ER 50 mg-levodopa 200 mg tablet,extended release 1 tab PO 0900,2200 parkinsons 12/07/21 polyethylene glycol 3350 17 gram/dose oral powder (Miralax) 17 g PO PRN CONSTIPATION 07/25/22 acetaminophen 500 mg tablet 1,000 mg PO Q8H PAIN 09/18/22 food supplemt, lactose-reduced 0.08 gram-1.5 kcal/mL oral liquid (Ensure Plus H igh Protein) 120 ml PO 4X/DAY SUPPLEMENT 09/18/22 menthol 0.44 %-zinc oxide 20.6 % topical ointment (Calmoseptine) 1 applic topical BID 09/18/22 sennosides 8.6 mg-docusate sodium 50 mg tablet (Senna Plus) 2 tab-cap PO BID PRN 09/18/22 ipratropium 0.5 mg-albuterol 3 mg (2.5 mg base)/3 mL nebulization soln 3 ml inhalation Q6HWA.RT PRN SOB #0 mL 09/21/22 escitalopram oxalate 10 mg tablet 10 mg PO QHS DEPRESSION #90 tabs 02/01/23 tamsulosin 0.4 mg capsule 0.4 mg PO QHS BPH 30 days #30 caps 02/26/23 tramadol 50 mg tablet 50 mg PO Q6H PRN Pain Score 6-10 30 days #120 tabs 03/19/23 quetiapine 25 mg tablet 25 mg PO BID #60 tabs 04/07/23 Hospital Course Operations None Procedures None Summary of Care Provided Hospital Course: Pt presents with agitation and inability to care for himself. Plan was for placement. Today, his had second thoughts and wishes to take him back home. Pt seen by PT/OT. They recommend [facility]. Weight / BMI Weight Weight: 59 kg Body Mass Index (BMI) 20.3 ABG / Lab / Microbiology Data 04/06/23 16:45 04/06/23 16:45 Laboratory: Laboratory Results - last 24 hr 04/06/23 16:45: WBC 7.8, RBC 4.32 L, Hgb 13.0, Hct 41.4, MCV 95.8 H, MCH 30.1, MCHC 31.4 L, RDW Std Deviation 46.6 H, RDW Coeff of Boni 13.1, Plt Count 200, MPV 10.9, Immature Gran % (Auto) 0.900, Neut % (Auto) 72.3 H, Lymph % (Auto) 17.0 L, [place] % (Auto) 7.9, Eos % (Auto) 1.3, Baso % (Auto) 0.6, Absolute Neuts (auto) 5.7, Absolute Lymphs (auto) 1.33, Nucleated RBC % 0, Sodium 142, Potassium 4.1, Chloride 110 H, Carbon Dioxide 27.0, Anion Gap 5, BUN 18, Creatinine 1.16, Estim Creat Clear Calc 45.67, Est GFR (MDRD) Af Amer 79, Est GFR (MDRD) Non-Af 65, BUN/Creatinine Ratio 15.5, Glucose 109 H, Calcium 8.8, Ethyl Alcohol < 3.0 04/06/23 17:35: Urine Opiates Screen NEGATIVE, Urine Methadone Screen NEGATIVE, Ur Barbiturates Screen NEGATIVE, Ur Phencyclidine Scrn NEGATIVE, Ur Amphetamines Screen NEGATIVE, MDMA (Ecstasy) Screen NEGATIVE, U Benzodiazepines Scrn NEGATIVE, Urine Cocaine Screen NEGATIVE, U Cannabinoids Screen NEGATIVE, Ur Drug Screen Comment Microbiology: Microbiology 04/06/23 16:40 Nasal Secretion SARS-CoV-2 Antigen (Rapid) - Final Radiography Diagnostic Testing: Radiology Impression Brain CT 04/06/23 16:32 IMPRESSION: Chronic involutional changes of the brain. No change or acute abnormality. Electronically Signed: Shawn Tenorio MD at 18:01 EDT Reading Location ID and State: [address] [place] [address] , Service support , D/C Instructions Discharge Diet: No restrictions Meaningful Use Info Meaningful Use Diagnoses (Choose all that apply): None applicable Discharge Plan Admission Admit Date/Time: 04/06/23 22:50 Primary Reason for Your Visit: failure to thrive. Attending Provider: Thanh Rhoades Primary Care Provider: Casper Do Consulting Providers: Delma Nunez Discharge Orders/Prescriptions Prescriptions: Continued (DME) walker Qty: 1 0RF Rx Instructions: Walker with wheels, brakes, and seat carbidopa-levodopa [Sinemet] 25-100 mg Tablet 1 tab PO TIDCM@0900,1300,1800 carbidopa-levodopa 50-200 mg Tablet Extended Release 1 tab PO 0900,2200 polyethylene glycol 3350 [Miralax] 17 gram/dose Powder 17 g PO PRN sennosides-docusate sodium [Senna Plus] 8.6-50 mg Tablet 2 tab-cap PO BID PRN menthol-zinc oxide [Calmoseptine] 0.44-20.6 % Ointment 1 applic TOPICAL BID Ensure Plus High Protein 0.08 gram-1.5 kcal/mL Liquid 120 ml PO 4X/DAY acetaminophen 500 mg tablet 1,000 mg PO Q8H ipratropium-albuterol 0.5 mg-3 mg(2.5 mg base)/3 mL Solution For Nebulization 3 ml inhalation Q6HWA.RT PRN (Reason: SOB) Qty: 0 0RF quetiapine 25 mg Tablet 25 mg PO BID Qty: 60 0RF escitalopram oxalate 10 mg tablet 10 mg PO QHS Qty: 90 0RF tamsulosin 0.4 mg capsule 0.4 mg PO QHS 30 Days Qty: 30 3RF tramadol 50 mg tablet 50 mg PO Q6H PRN (Reason: Pain Score 6-10) 30 Days Qty: 120 0RF Rx Instructions: Do not fill before 12/27/2022 Referrals / Follow Up: Casper Do, [Primary Care Provider] - Within 2 Weeks Disposition Disposition (needs filled in before D/C Order can be placed): Home Health Service Charges/Coding Visit Charges Inpatient E&M: 77860 Disch Hosp
--- NOTE | 2023-04-08 09:23 | CASEMGMT ---
RODOLFO ROSENTHAL Follow-up: Noted plans for home health at discharge. Call placed to pt's who states she is not interested in home health services. [facility] she has a sitter to stay with pt 4 hours a day Saturday thru Saturday so she can go to work. States she is attempting to keep him at home as when he was at [facility] he only sat in a w/c all day. States she feels she is able to provide for pt's care needs. 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 States she remains in contact with Dr. Do and pt's neurologist and is able to manage pt's medications. States she ensures pt takes his medications daily as prescribed. Pt's denies any additional needs at this time. Katia Nair RN CM
== END 2023-04-07 13:30 | disposition home or self-care (01) ==
LOC: ED 23:03 → MS3 23:13
PROVIDERS: Admitting Provider Family Medicine; Emergency Provider Emergency Medicine; PCP Family Medicine
DX: R62.7 Adult failure to thrive (principal); G20 Parkinson's disease; G30.9 Alzheimer's disease, unspecified; F02.C11 Dementia in other diseases classified elsewhere, severe, with agitation; J44.9 Chronic obstructive pulmonary disease, unspecified; I25.10 Atherosclerotic heart disease of native coronary artery without angina pectoris; F41.9 Anxiety disorder, unspecified; G89.29 Other chronic pain; Z87.891 Personal history of nicotine dependence; K58.9 Irritable bowel syndrome, unspecified; Z79.899 Other long term (current) drug therapy; F32.A Depression, unspecified; N40.0 Benign prostatic hyperplasia without lower urinary tract symptoms
CPT/HCPCS: 70450; 80048; 80307; 82077; 85025; 87811; 93005; 94640; 97162; 97166; 99221; 99285; G0378

== ENCOUNTER 2023-04-10 17:07 | Observation (INO) | payer MEDICARE, OTHER, SELFPAY ==
[2023-04-10 17:09] VITALS: BP 118/74; PULSE 87; RESP 16; TEMP 36.1; O2SAT 96
--- NOTE | 2023-04-10 18:14 | EX.ED.DYSGE1 ---
HPI History of Present Illness Chief Complaint: Confusion Detail of Chief Complaint: Urine for group home placement. Informant: spouse/S.O. Onset/Context/Timing Onset: Weeks Context: Gradual Onset Timing: Continuous Current Severity: Moderate Maximum Severity: Moderate Narrative Narrative: 77-year-old male history of Parkinson's. Failure to thrive. Recent hospitalization. It was offered admission at that time for group home placement. His has been to him for many years wanted to try to take care of him at home. She is just unable to. He has been having falls. She said he gets upset and angered which she never got before. She is to the point where she is willing to try group home placement. She denies any recent illness. Patient does not give any history. Prior similar symptoms: Yes Recent Illness/Hospitalization: Yes PFSH [facility] Medical History Abdominal aortic aneurysm Anxiety Atherosclerotic heart disease of [place] coronary artery without angina pectoris Behavioral disorder Benign prostate hyperplasia Cervicalgia Chronic pain COPD (chronic obstructive pulmonary disease) Former smoker Frequent falls Herniation of nucleus pulposus Hypokalemia IBS (irritable bowel syndrome) Parkinson disease Parkinson's disease dementia Raynauds disease Scoliosis deformity of spine Urinary frequency Urine incontinence Home Medications walker #1 ea 04/14/20 [Rx Last Taken Unknown] carbidopa 25 mg-levodopa 100 mg tablet (Sinemet) 1 tab PO TIDCM@0900,1300,1800 parkinsons 02/24/21 [History Last Taken 09/18/22 09:00] carbidopa ER 50 mg-levodopa 200 mg tablet,extended release 1 tab PO 0900,2200 parkinsons 12/07/21 [History Last Taken 09/18/22 13:00] polyethylene glycol 3350 17 gram/dose oral powder (Miralax) 17 g PO PRN CONSTIPATION 07/25/22 [History Last Taken 09/17/22 05:25] acetaminophen 500 mg tablet 1,000 mg PO Q8H PAIN 09/18/22 [History Last Taken 09/17/22 05:25] food supplemt, lactose-reduced 0.08 gram-1.5 kcal/mL oral liquid (Ensure Plus High Protein) 120 ml PO 4X/DAY SUPPLEMENT 09/18/22 [History Last Taken 09/17/22 05:25] menthol 0.44 %-zinc oxide 20.6 % topical ointment (Calmoseptine) 1 applic topical BID 09/18/22 [History Last Taken 09/17/22 05:26] sennosides 8.6 mg-docusate sodium 50 mg tablet (Senna Plus) 2 tab-cap PO BID PRN 09/18/22 [History Last Taken 09/17/22 05:25] ipratropium 0.5 mg-albuterol 3 mg (2.5 mg base)/3 mL nebulization soln 3 ml inhalation Q6HWA.RT PRN SOB #0 mL 09/21/22 [Rx Last Taken Unknown] escitalopram oxalate 10 mg tablet 10 mg PO QHS DEPRESSION #90 tabs 02/01/23 [Rx Last Taken Unknown] tamsulosin 0.4 mg capsule 0.4 mg PO QHS BPH 30 days #30 caps 02/26/23 [Rx Last Taken Unknown] tramadol 50 mg tablet 50 mg PO Q6H PRN Pain Score 6-10 30 days #120 tabs 03/19/23 [Rx Last Taken Unknown] quetiapine 25 mg tablet 25 mg PO BID #60 tabs 04/07/23 [Rx Last Taken Unknown] Allergy/AdvReac Type Severity Reaction Status Date / Time pregabalin [From Lyrica] AdvReac hallucinati Verified 04/06/23 15:52 ons Family History Brother Alcoholism Father Heart disease Myocardial infarction Uncle Heart disease Myocardial infarction Grandfather Heart disease Myocardial infarction Mother Heart disease Surgical History History of cataract surgery History of colonoscopy History of left hip hemiarthroplasty History of tonsillectomy Social History household members: spouse Smoking Status: Former smoker how long ago did patient quit smokin alcohol intake: never substance use type: does not use what type of physical activity do you participate in: walking frequency: daily ROS ROS ED ROS Narrative denies recent illness. Patient is unable to give any history. Review of Systems ROS Unobtainable: due to mental status Constitutional Constitutional ED: Denies chills or fever(s) Eyes Eyes: Denies blurry vision ENT ENT ED: Denies ear pain Cardiovascular Cardiovascular: Denies chest pain Respiratory/Chest Respiratory/Chest: Denies cough or dyspnea Gastrointestinal Gastrointestinal: Denies abdominal pain Genitourinary Genitourinary ED: Denies dysuria or hematuria Musculoskeletal Musculoskeletal: Denies arthralgias Integumentary Denies abscess Neurologic Neurologic: Denies headache(s) Psychiatric Psychiatric: Denies anxiety or depression Endocrine Endocrinology: Denies cold intolerance Hematologic/Lymphatic Hematologic/Lymphatic: Reports none Allergic/Immunologic Allergic/Immunologic ED: Denies mouth swelling or tongue swelling EXAM Physical Exam Narrative Exam Narrative: Elderly male very frail. Vital signs stable afebrile. at bedside. Patient lying in bed. Slow to respond. Does not speak at this time. Unable to give any history. H EENT exam atraumatic currently. No facial or scalp trauma. Moist mucous membranes. Neck nontender. Lungs clear to auscultation. Heart regular rhythm rate about 90 no murmur. Chest wall nontender. Ribs nontender. No subcu air. Abdomen soft nontender. Nondistended. No peritoneal signs. Pelvic girdle intact. Extremities are nontender without deformity. He has multiple Band-Aids on his right arm from falls and wounds. Nothing to repair at this time. No bony deformity. Neurologically his eyes are open. He follows limited commands. He is not answering any questions or speaking. Const Vital Signs: 04/10/23 17:09 Temperature 97 F L Temperature Source Temporal Pulse Rate 87 Respiratory Rate 16 Blood Pressure 118/74 Blood Pressure Mean 88 Pulse Ox 96 Oxygen Delivery Method Room Air Positive well nourished and well developed; Negative for obese, cachectic, contractures or unkempt General Appearance ED: well developed and NAD; Negative for unkempt, cachectic, contractures, cyanotic or diaphoretic Nutritional Appearance: Negative for cachectic or obese HEENT Reports moist mucous membranes; Denies dry mucous membranes Negative for trauma or tenderness Mouth ED: No dry mucous membranes Mouth: No dry mucous membranes Eyes PERRL and EOMs intact bilaterally General Eye ED: Negative for pale conjunctiva or scleral icterus Neck no lymphadenopathy, supple and no JVD General: Negative for tenderness Lymph Lymphatic: Negative for other Chest Wall inspection of chest normal and palpation of chest normal Chest: Negative for other Resp normal respiratory effort and clear to auscultation bilaterally Effort and Inspection: Negative for retractions Auscultation: Negative for rales Cardio regular rate, regular rhythm, S1 normal heart sound, S2 normal heart sound and no murmurs GI normal to inspection, nondistended, normoactive bowel sounds, non-tender, non-distended and no masses Inspection: Negative for abdominal distention Auscultation: normoactive bowel sounds Palpation: soft; Negative for tender or guarding Bladder / Kidney Exam: No other Back/Spine no CVA tenderness General Back: Negative for CVA tenderness Cervical Spine: Negative for cervical spine tenderness Thoracic Spine / Upper Back: Negative for thoracic spinal tenderness Lumbar Spine / Lower Back: Negative for lumbar spinal tenderness Extremity normal to inspection Extremity Narrative: Nontender. No deformity. General Extremety ED: Negative for edema or tenderness General Extremity: Negative for edema Psych Appearance: Negative for unkempt Attitude: No agitated Mood & Affect: Negative for depressed, anxious or tearful Skin no rashes or lesions noted and No no wounds Skin Narrative: Wounds on his arms and falls. Nothing to be repaired. Lesions: No lesion noted Rashes: No rashes noted Trauma: Negative for abrasion Wounds: wounds noted MDM MDM MDM Narrative Medical decision making narrative: 77-year-old with end-stage Parkinson. To be admitted for group home placement. Recent hospitalization. At that time wanted to try to take care of him at home. She is unable to. Repeat exam unchanged at 7 PM. I spoke to the hospitalist he will admit the patient for failure to thrive and group home placement.. History & Record Review Discussion w/independent historian: Family Lab Data Attestation: I reviewed the patient's lab results. Lab results narrative: CBC shows white count of 5.4. H&H of 12.6 and 38. Platelets 176. Electrolytes show a gap of 3. BUN and creatinine nineteen 0.9. Glucose 85. Labs: Laboratory Results - last 24 hr 04/10/23 18:23 WBC 5.4 RBC 4.09 L Hgb 12.6 L Hct 38.1 L MCV 93.2 MCH 30.8 MCHC 33.1 D RDW Std Deviation 44.4 H RDW Coeff of Boni 13.1 Plt Count 176 MPV 11.2 Immature Gran % (Auto) 1.700 H Neut % (Auto) 64.8 Lymph % (Auto) 19.4 Boyle % (Auto) 9.2 Eos % (Auto) 4.2 Baso % (Auto) 0.7 Absolute Neuts (auto) 3.5 Absolute Lymphs (auto) 1.05 Nucleated RBC % 0 Sodium 139 Potassium 4.3 Chloride 110 H Carbon Dioxide 26.0 Anion Gap 3 L BUN 19 H Creatinine 0.90 Estim Creat Clear Calc 64.87 Est GFR (MDRD) Af Amer 106 Est GFR (MDRD) Non-Af 87 BUN/Creatinine Ratio 21.2 H Glucose 85 Calcium 8.5 Discharge Plan Triage Chief Complaint: Confusion ED Provider: Walt Benjamin Dx/Rx/DC Orders Clinical Impression: Adult failure to thrive, Parkinson disease, Falls Prescriptions: No Action (DME) walker Qty: 1 0RF Rx Instructions: Walker with wheels, brakes, and seat carbidopa-levodopa [Sinemet] 25-100 mg Tablet 1 tab PO TIDCM@0900,1300,1800 carbidopa-levodopa 50-200 mg Tablet Extended Release 1 tab PO 0900,2200 polyethylene glycol 3350 [Miralax] 17 gram/dose Powder 17 g PO PRN sennosides-docusate sodium [Senna Plus] 8.6-50 mg Tablet 2 tab-cap PO BID PRN menthol-zinc oxide [Calmoseptine] 0.44-20.6 % Ointment 1 applic TOPICAL BID Ensure Plus High Protein 0.08 gram-1.5 kcal/mL Liquid 120 ml PO 4X/DAY acetaminophen 500 mg tablet 1,000 mg PO Q8H ipratropium-albuterol 0.5 mg-3 mg(2.5 mg base)/3 mL Solution For Nebulization 3 ml inhalation Q6HWA.RT PRN (Reason: SOB) Qty: 0 0RF quetiapine 25 mg Tablet 25 mg PO BID Qty: 60 0RF escitalopram oxalate 10 mg tablet 10 mg PO QHS Qty: 90 0RF tamsulosin 0.4 mg capsule 0.4 mg PO QHS 30 Days Qty: 30 3RF tramadol 50 mg tablet 50 mg PO Q6H PRN (Reason: Pain Score 6-10) 30 Days Qty: 120 0RF Rx Instructions: Do not fill before 12/27/2022 Primary Care Provider: Casper Do Referrals: Casper Do, [Primary Care Provider] - Disposition Disposition: Acute Care Hospital [facility]
[2023-04-10] MEDS: 0.9% Normal Saline 1,000 ML 999 ML IV (18:24)
[2023-04-10 18:42] LABS: Absolute Lymphocyte Count 1.05 X10^3/uL (0.83-4.51); Absolute Neutrophil Count 3.5 X10^3/uL (2.0-7.7); Basophil# 0.04 X10^3/uL; Basophil% 0.7 % (0-1); Eosinophil# 0.23 X10^3/uL; Eosinophils% 4.2 % (0-5); Hematocrit 38.1 % (40-54); Hemoglobin 12.6 g/dL (13.0-16.5); Lymphocyte # 1.05 X10^3/ul (0.83-4.51); Lymphocyte % 19.4 % (19-41); Mean Corp Hgb Conc 33.1 g/dL (32-36); Mean Corpuscular Hgb 30.8 pg (27.0-32.0); Mean Corpuscular Volume 93.2 fL (80-94); Mean Platelet Vol. 11.2 fl (6.2-12.0); Monocyte% 9.2 % (0-10); NRBC Flagged by Analyzer 0 % (0-5); Neutrophil # 3.51 X10^3/uL (2.7-7.7); Neutrophil % 64.8 % (47-70); Platelet Count 176 K/mm3 (150-450); RBC Distribution Width CV 13.1 % (11.6-14.6); RBC Distribution Width SD 44.4 fl (35.1-43.9); Red Blood Count 4.09 M/mm3 (4.6-6.2); White Blood Count 5.4 K/mm3 (4.4-11.0)
[2023-04-10 18:49] LABS: Anion Gap 3 (5-15); BUN 19 mg/dL (7-18); BUN/Creat Ratio 21.2 RATIO (10-20); Calcium,Total 8.5 mg/dL (8.5-10.1); Chloride 110 mmol/L (98-107); EST Glomerular Filtration Rate 87 mL/min (>60); Est Glom Filt Rate - Afr Amer 106 mL/min (>60); Estimated Creatinine Clearance 64.87 ml/min; Glucose 85 mg/dL (74-106); Potassium 4.3 mmol/L (3.5-5.1); Sodium Level 139 mmol/L (136-145)
--- NOTE | 2023-04-10 19:12 | HP.PCM.HOS_ITS ---
HPI - General General Date of Admission: 04/10/23 Date of Service: 04/10/23 Chief Complaint: Multiple falls and agitated HPI Narrative NIKOLAS HANSON, is a 77 M with a significant history of dementia; Parkinson disease and COPD who presents to the emergency department because family cannot longer take care of him. Reportedly patient has had behavioral issues and has been slapping family. Also patient has had multiple falls attributed to his Parkinson's disease.. Of note he has had his shoulder replaced and has also had a hip replacement from falling. He has had multiple bruises from falling. Patient was at the hospital and was discharged on 04/07/2023. At recent hospital admission [facility] admission was offered to patient. However declined but now is more than willing to pursue that route (what to go into a penitentiary). [facility] Medical History Abdominal aortic aneurysm Anxiety Atherosclerotic heart disease of [place] coronary artery without angina pectoris Behavioral disorder Benign prostate hyperplasia Cervicalgia Chronic pain COPD (chronic obstructive pulmonary disease) Former smoker Frequent falls Herniation of nucleus pulposus Hypokalemia IBS (irritable bowel syndrome) Parkinson disease Parkinson's disease dementia Raynauds disease Scoliosis deformity of spine Urinary frequency Urine incontinence Home Medications walker #1 ea 04/14/20 [Rx Last Taken Unknown] carbidopa 25 mg-levodopa 100 mg tablet (Sinemet) 1 tab PO TIDCM@0900,1300,1800 parkinsons 02/24/21 [History Last Taken 09/18/22 09:00] carbidopa ER 50 mg-levodopa 200 mg tablet,extended release 1 tab PO 0900,2200 parkinsons 12/07/21 [History Last Taken 09/18/22 13:00] polyethylene glycol 3350 17 gram/dose oral powder (Miralax) 17 g PO PRN CONSTIPATION 07/25/22 [History Last Taken 09/17/22 05:25] acetaminophen 500 mg tablet 1,000 mg PO Q8H PAIN 09/18/22 [History Last Taken 09/17/22 05:25] food supplemt, lactose-reduced 0.08 gram-1.5 kcal/mL oral liquid (Ensure Plus High Protein) 120 ml PO 4X/DAY SUPPLEMENT 09/18/22 [History Last Taken 09/17/22 05:25] menthol 0.44 %-zinc oxide 20.6 % topical ointment (Calmoseptine) 1 applic topical BID 09/18/22 [History Last Taken 09/17/22 05:26] sennosides 8.6 mg-docusate sodium 50 mg tablet (Senna Plus) 2 tab-cap PO BID PRN 09/18/22 [History Last Taken 09/17/22 05:25] ipratropium 0.5 mg-albuterol 3 mg (2.5 mg base)/3 mL nebulization soln 3 ml inhalation Q6HWA.RT PRN SOB #0 mL 09/21/22 [Rx Last Taken Unknown] escitalopram oxalate 10 mg tablet 10 mg PO QHS DEPRESSION #90 tabs 02/01/23 [Rx Last Taken Unknown] tamsulosin 0.4 mg capsule 0.4 mg PO QHS BPH 30 days #30 caps 02/26/23 [Rx Last Taken Unknown] tramadol 50 mg tablet 50 mg PO Q6H PRN Pain Score 6-10 30 days #120 tabs 03/19/23 [Rx Last Taken Unknown] quetiapine 25 mg tablet 25 mg PO BID #60 tabs 04/07/23 [Rx Last Taken Unknown] Allergy/AdvReac Type Severity Reaction Status Date / Time pregabalin [From Lyrica] AdvReac hallucinati Verified 04/06/23 15:52 ons Family History Brother Alcoholism Father Heart disease Myocardial infarction Uncle Heart disease Myocardial infarction Grandfather Heart disease Myocardial infarction Mother Heart disease Surgical History History of cataract surgery History of colonoscopy History of left hip hemiarthroplasty History of tonsillectomy Social History household members: spouse Smoking Status: Former smoker how long ago did patient quit smokin alcohol intake: never substance use type: does not use what type of physical activity do you participate in: walking frequency: daily ROS ROS Narrative Pertinent positives and pertinent negatives as noted in HPI. All other systems were reviewed and are negative Vital Signs Vital Signs Vital Signs: 04/10/23 17:09 Temperature 97 F L Temperature Source Temporal Pulse Rate 87 Respiratory Rate 16 Blood Pressure 118/74 Blood Pressure Mean 88 Pulse Ox 96 Oxygen Delivery Method Room Air Weight Weight: 65.68 kg Body Mass Index (BMI) 0.1 Physical Exam Narrative Physical exam: General: Patient lying in bed in a crooked fashion Head: Normocephalic, atraumatic, no tenderness Eyes: Vision is grossly intact. EOMI ENT, no trauma, moist mucous membranes, no rhinorrhea Neck: Nontender, No thyromegaly. CVS: Regular rate and rhythm. S1-S2 present. No murmur, gallop or rub. Respiratory : clear to auscultation bilaterally, chest wall nontender Abdomen: Soft, nontender, nondistended, normal bowel sounds, no masses : Deferred Back: Nontender, no CVA tenderness Extremities: Nontender full range of motion, no trauma Skin: Normal color, multiple bruises on right forearm. Neuro: Alert, confused Psychiatry: Normal mood. Normal affect. Not depressed. Not anxious. Results Lab / Micro Data 04/11/23 05:00 04/10/23 18:23 Labs: Laboratory Results - last 24 hr 04/10/23 18:23: WBC 5.4, RBC 4.09 L, Hgb 12.6 L, Hct 38.1 L, MCV 93.2, MCH 30.8, MCHC 33.1 D, RDW Std Deviation 44.4 H, RDW Coeff of Boni 13.1, Plt Count 176, MPV 11.2, Immature Gran % (Auto) 1.700 H, Neut % (Auto) 64.8, Lymph % (Auto) 19.4, Hawkins % (Auto) 9.2, Eos % (Auto) 4.2, Baso % (Auto) 0.7, Absolute Neuts (auto) 3.5, Absolute Lymphs (auto) 1.05, Nucleated RBC % 0, Sodium 139, Potassium 4.3, Chloride 110 H, Carbon Dioxide 26.0, Anion Gap 3 L, BUN 19 H, Creatinine 0.90, Estim Creat Clear Calc 64.87, Est GFR (MDRD) Af Amer 106, Est GFR (MDRD) Non-Af 87, BUN/Creatinine Ratio 21.2 H, Glucose 85, Calcium 8.5 Assessment & Plan Assessment/Plan (1) Alzheimer's dementia with agitation: QUALIFIERS: Alzheimer's disease onset: unspecified onset Dementia severity: severe Qualified Code(s): G30.9 - Alzheimer's disease, unspecified; F02.C11 - Dementia in other diseases classified elsewhere, severe, with agitation (2) Hx of Parkinson's disease: (3) Adult failure to thrive: (4) Falls: QUALIFIERS: Encounter type: subsequent encounter Qualified Code(s): W19.XXXD - Unspecified fall, subsequent encounter PLAN: Plan Multiple falls/Alzheimer's disease with agitation/end-stage Parkinson disease Parkinson disease/adult failure to thrive PT OT to work with patient. Case management consult. CBC reviewed showed normal white count. Trend. Chronic anemia Stable Trend CBC. DVT prophylaxis Subcutaneous Lovenox ordered. Charges/Coding Visit Charges Inpatient E&M: 58492 Init Hosp L2
[2023-04-10 19:26] VITALS: BP 120/74; PULSE 74; RESP 18; TEMP 37.2; O2SAT 98
--- NOTE | 2023-04-10 19:44 | CM.ED ---
Social Work Note Referral Source: RODOLFO Correa Referral Reason: SNF RN Sunny met with SANDRA and reviewed presenting symptoms and concerns regarding patient's being unable to care for patient at home and is requesting SNF placement. SANDRA reviewed concerns with MD Benjamin, hospitalist to review. SW informed by RN patient will be admitted under observation, however, patient's left ED. SW left patient's a VM to discuss SNF placement and insurance coverage and requested a return phone call. Plan: admit to [facility] for SNF placement Waleska ANAND, KAYCEE
[2023-04-10 20:07] VITALS: BP 138/86; PULSE 75; RESP 16; TEMP 36.6; O2SAT 95
[2023-04-10 20:15] VITALS: BMI 16.7
[2023-04-10 20:56] VITALS: O2SAT 95
[2023-04-10] MEDS: Tamsulosin HCl 0.4 MG Capsule PO (21:11)
[2023-04-10] MEDS: Acetaminophen 500 MG Tablet 1000 MG PO (21:11)
[2023-04-10] MEDS: Escitalopram Oxalate 10 MG Tablet PO (21:11)
[2023-04-10] MEDS: CARBIDOPA/LEVODOPA CR 50/200 Tablet PO (21:12)
[2023-04-10] MEDS: Menthol/Lanolin/Calamine/Znox 113 GM Tube 1 APPLIC TOPICAL (22:49)
[2023-04-11] VITALS (7 sets, daily range): BP systolic 111–138; BP diastolic 73–95; PULSE 64–86; RESP 16; TEMP 36.3–36.8; O2SAT 93–98
[2023-04-11] MEDS: Acetaminophen 500 MG Tablet 1000 MG PO ×3 (05:48→22:52)
[2023-04-11 05:49] LABS: Absolute Lymphocyte Count 1.67 X10^3/uL (0.83-4.51); Absolute Neutrophil Count 2.5 X10^3/uL (2.0-7.7); Basophil# 0.07 X10^3/uL; Basophil% 1.4 % (0-1); Eosinophil# 0.31 X10^3/uL; Hematocrit 38.3 % (40-54); Hemoglobin 12.2 g/dL (13.0-16.5); Lymphocyte # 1.67 X10^3/ul (0.83-4.51); Lymphocyte % 32.6 % (19-41); Mean Corp Hgb Conc 31.9 g/dL (32-36); Mean Corpuscular Hgb 30.4 pg (27.0-32.0); Mean Corpuscular Volume 95.5 fL (80-94); Mean Platelet Vol. 11.1 fl (6.2-12.0); Monocyte# 0.48 X10^3/uL; Monocyte% 9.4 % (0-10); NRBC Flagged by Analyzer 0 % (0-5); Neutrophil # 2.52 X10^3/uL (2.7-7.7); Platelet Count 178 K/mm3 (150-450); RBC Distribution Width SD 45.8 fl (35.1-43.9); Red Blood Count 4.01 M/mm3 (4.6-6.2); White Blood Count 5.1 K/mm3 (4.4-11.0)
[2023-04-11 06:28] LABS: Anion Gap 1 (5-15); BUN 15 mg/dL (7-18); BUN/Creat Ratio 21.1 RATIO (10-20); Calcium,Total 8.2 mg/dL (8.5-10.1); Chloride 112 mmol/L (98-107); Creatinine, Serum 0.71 mg/dL (0.70-1.30); EST Glomerular Filtration Rate 114 mL/min (>60); Est Glom Filt Rate - Afr Amer 138 mL/min (>60); Estimated Creatinine Clearance 52.44 ml/min; Glucose 84 mg/dL (74-106); Potassium 3.9 mmol/L (3.5-5.1); Sodium Level 141 mmol/L (136-145)
[2023-04-11] MEDS: Carbidopa/Levodopa 25/100 Tablet PO ×3 (09:31→17:58)
[2023-04-11] MEDS: Enoxaparin 40 MG/0.4 ML Syringe SC (09:31)
[2023-04-11] MEDS: CARBIDOPA/LEVODOPA CR 50/200 Tablet PO ×2 (09:31→22:52)
[2023-04-11] MEDS: Menthol/Lanolin/Calamine/Znox 113 GM Tube 1 APPLIC TOPICAL ×2 (09:31→22:49)
--- NOTE | 2023-04-11 10:34 | CASEMGMT ---
Addendum entered by Samara Mcadams 04/11/23 13:39: SW did offer a half-way facility list, however patient's declined stating she only wants one of the 3 facilities in [place] that have dementia units. Samara BENOIT Original Note: Patient's Jennifer asked to talk with SW. Jennifer was asking about [facility] and [facility] for patient. SW notified Jennifer that patient will be private pay at the longterm due to being observation status. Jennifer said they cannot afford $8,000 a month. SW explained she would need to complete a Medicaid application. Jennifer said she has to leave soon for work. SW assisted Jennifer in completing application. Jennifer was open to SW sending referrals to the [place] SNF's that have Dementia units. SW told her that would be [facility], [facility], and [facility]. She was agreeable, with [facility] being her first choice. Jennifer said she is probably going to put her house up for sale and live some place smaller so she can pay for patient's care. 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 SW can call her and she will talk as able. SW faxed Medicaid application to [facility]. SANDRA asked Berta [employer] wedding planning internship to please send referrals to [facility], [facility], and [facility]. Samara BENOIT
--- NOTE | 2023-04-11 10:35 | CASEMGMT ---
Discharge Planning Referral sent to [facility] via [facility]. Berta Sauer, Discharge Planning Asst.
--- NOTE | 2023-04-11 10:44 | CASEMGMT ---
Discharge Planning [facility] has no bed availability on their memory care unit. Referrals sent to both [facility] and [facility]. Requested room rates and amount needed up front. to complete JAMIE application. Berta Sauer, Discharge Planning Asst.
--- NOTE | 2023-04-11 10:48 | CASEMGMT ---
Patient has Dementia and is confused. SW spoke with patient's and they do not have healthcare power of health care attorney or living will papers. Samara Mcadams [employer] KAYCEE
--- NOTE | 2023-04-11 10:57 | CASEMGMT ---
SANDRA received notification from [facility] that they do not have any beds in their correction dementia unit. SANDRA called patient's and let her know this information and that referrals were sent to [facility] and [facility]. SANDRA also told her they may be calling her to discuss finances. Jennifer said that is fine and thanked SANDRA. Samara Mcadams [employer] KAYCEE
--- NOTE | 2023-04-11 13:05 | PCM.PN.HOSP ---
Reason for Visit Reason for Visit: Diagnoses Dementia in other diseases classified elsewhere, severe, with agitation (04/10/23) Alzheimer's disease, unspecified (04/10/23) Adult failure to thrive (04/10/23) Unspecified fall, subsequent encounter (04/10/23) Personal history of other diseases of the nervous system and sense organs (04/10/23) Subjective Subjective Patient complains of back pain which she said is chronic, patient very paranoid and has difficulty answering directed questions Objective Data Objective Data Vital Signs: Vital Signs Temp Pulse Resp BP Pulse Ox O2 Del Method 97.4 F L 66 16 120/95 H 96 Room Air 04/11/23 09:27 04/11/23 09:27 04/11/23 09:27 04/11/23 09:27 04/11/23 09:27 04/11/23 09:27 Oxygen Delivery Method Room Air Weight: 59 kg Body Mass Index (BMI) 16.7 Intake & Output: Intake and Output for Last 24 Hours 04/09/23 04/10/23 04/11/23 23:59 23:59 23:59 Intake Total 1120 / 1120 100 / 100 Output Total 200 / 200 500 / 500 Balance 920 / 920 -400 / -400 Lab / Micro Data 04/11/23 05:00 04/11/23 05:00 Labs: Laboratory Results - last 24 hr 04/10/23 18:23: WBC 5.4, RBC 4.09 L, Hgb 12.6 L, Hct 38.1 L, MCV 93.2, MCH 30.8, MCHC 33.1 D, RDW Std Deviation 44.4 H, RDW Coeff of Boni 13.1, Plt Count 176, MPV 11.2, Immature Gran % (Auto) 1.700 H, Neut % (Auto) 64.8, Lymph % (Auto) 19.4, Perkins % (Auto) 9.2, Eos % (Auto) 4.2, Baso % (Auto) 0.7, Absolute Neuts (auto) 3.5, Absolute Lymphs (auto) 1.05, Nucleated RBC % 0, Sodium 139, Potassium 4.3, Chloride 110 H, Carbon Dioxide 26.0, Anion Gap 3 L, BUN 19 H, Creatinine 0.90, Estim Creat Clear Calc 64.87, Est GFR (MDRD) Af Amer 106, Est GFR (MDRD) Non-Af 87, BUN/Creatinine Ratio 21.2 H, Glucose 85, Calcium 8.5 04/11/23 05:00: WBC 5.1, RBC 4.01 L, Hgb 12.2 L, Hct 38.3 L, MCV 95.5 H, MCH 30.4, MCHC 31.9 L, RDW Std Deviation 45.8 H, RDW Coeff of Boni 13.0, Plt Count 178, MPV 11.1, Immature Gran % (Auto) 1.600 H, Neut % (Auto) 49.0, Lymph % (Auto) 32.6, Perkins % (Auto) 9.4, Eos % (Auto) 6.0 H, Baso % (Auto) 1.4 H, Absolute Neuts (auto) 2.5, Absolute Lymphs (auto) 1.67, Nucleated RBC % 0, Sodium 141, Potassium 3.9, Chloride 112 H, Carbon Dioxide 28.0, Anion Gap 1 L, BUN 15, Creatinine 0.71, Estim Creat Clear Calc 52.44, Est GFR (MDRD) Af Amer 138, Est GFR (MDRD) Non-Af 114, BUN/Creatinine Ratio 21.1 H, Glucose 84, Calcium 8.2 L Physical Exam Narrative General: Alert, confused HEENT: Normocephalic Eyes: extraocular movements grossly intact Neck: Supple Respiratory: normal respiratory effort Cardiovascular: no edema appreciated GI: nondistended Extremities: Moving all extremities Neuro: No overt focal neurological deficits Psych: Irritable and uncooperative Assessment & Plan Assessment/Plan (1) Alzheimer's dementia with agitation: QUALIFIERS: Alzheimer's disease onset: unspecified onset Dementia severity: severe Qualified Code(s): G30.9 - Alzheimer's disease, unspecified; F02.C11 - Dementia in other diseases classified elsewhere, severe, with agitation (2) Hx of Parkinson's disease: (3) Adult failure to thrive: (4) Falls: QUALIFIERS: Encounter type: subsequent encounter Qualified Code(s): W19.XXXD - Unspecified fall, subsequent encounter PLAN: Plan #Multiple falls/Alzheimer's disease with agitation/end-stage Parkinson disease Parkinson disease/adult failure to thrive -PT OT to work with patient. Case management consult. -Presently placement being pursued #Chronic anemia -Stable -No ongoing blood loss noted DVT prophylaxis Subcutaneous Lovenox ordered. Charges/Coding Visit Charges Inpatient E&M: 11600 Subs Hosp L1
--- NOTE | 2023-04-11 13:39 | CASEMGMT ---
[facility] and [facility] have both accepted patient. [facility] indicated they spoke with patient's and the patient liability would be $1500 which they would collect on admission. will call patient's to discuss the plan. Samara BENOIT
--- NOTE | 2023-04-11 15:24 | CASEMGMT ---
RN ARIADNA NOTE: Spoke w/pt's via phone. Intro role of CM to pt's . [employer] form explained re: Observation status for treatment of failure to thrive and multiple falls.? Explained hospitalization will be paid per?pt's insurance policy for Outpatient billing?and condition will continue to be evaluated for Inpt necessity. Also let know that [facility] sends paper in the billing packet with their phone number if questions arise. Discussed Pharmacy section of [facility] form and self administered medication guideline.? verbalizes understanding and does not have further questions. ?Form signed via telephone signature by this RODOLFO ROSENTHAL and Samara FLORES, copy made and placed in chart, and original placed in pt's room. Raj COELLO RN, CM
--- NOTE | 2023-04-11 15:33 | CASEMGMT ---
SANDRA called patient's Jennifer and she did talk with someone from [facility]. Jennifer said that someone was supposed to call her back from [facility]. Jennifer said they applied for Medicaid a couple of months ago and got denied. Jennifer is worried that he will go to [facility] and then not qualify for Medicaid and she won't be able to pay them $8,000. SANDRA told Jennifer FLORES will make a few phone calls and get back to her. SANDRA called [facility] and patient was denied before because all of the necessary paperwork was not turned in. SANDRA then called Nereida at [facility] and she said they are fine with taking patient. SANDRA called Jennifer back and let her know what Daina told SANDRA. Jennifer is not sure what to do. Jennifer is afraid patient will go to [facility] and not qualify for Medicaid and she cannot pay $8,000. SANDRA told Jennifer she will only have to pay for the time patient was there. Jennifer will be in tomorrow am to see patient. Samara BENOIT
[2023-04-11] MEDS: Divalproex Sodium 125 MG SPRINKLE PO ×2 (15:46→22:49)
--- NOTE | 2023-04-11 16:02 | CHAPLAIN ---
Type of Pastoral Visit _x__ Initial Visit ___ Follow-up Visit ___ On-call Visit ___ General Patient Visit ___ Spiritual Assessment ___ Family Conference ___ Bereavement ___ Rapid Response ___ Code Blue ___ Other (describe below) Pastoral Care Referral From _x__ Patient ___ Family ___ Nurse ___ Physician ___ All Around Gear Machine Operator ___ Inventory Analyst ___ Other (describe below) Sacrament/Intervention _x__ Active listening ___ Anointing ___ Voodoo ___ Bereavement ___ Communion ___ Giovana exploration ___ _x__ Life review ___ Prayer ___ Reconciliation ___ Sacrament of Sick _x__ Supportive presence ___ Wedding ___ Other (describe below) Pastoral Comments found patient to be napping but awoke to his name; patient could state his name and was able to answer several questions; pt also mumbled some phrases and talked about things randomly as well; pt engaged in some conversation but not completely understood; pt was pleasant; pt declined prayer
[2023-04-11] MEDS: QUEtiapine 25 MG Tablet PO (18:07)
[2023-04-11] MEDS: Tamsulosin HCl 0.4 MG Capsule PO (22:50)
[2023-04-11] MEDS: MELATONIN 10 MG TABLET PO (22:50)
[2023-04-11] MEDS: Escitalopram Oxalate 10 MG Tablet PO (22:50)
[2023-04-12 03:39] VITALS: BP 118/77; PULSE 74; RESP 16; TEMP 36.6; O2SAT 99
[2023-04-12] MEDS: Acetaminophen 500 MG Tablet 1000 MG PO ×2 (06:18→14:11)
[2023-04-12] MEDS: Divalproex Sodium 125 MG SPRINKLE PO ×2 (06:19→14:12)
[2023-04-12 08:02] VITALS: O2SAT 94
--- NOTE | 2023-04-12 08:32 | PCM.PN.HOSP ---
Reason for Visit Reason for Visit: Diagnoses Dementia in other diseases classified elsewhere, severe, with agitation (04/10/23) Alzheimer's disease, unspecified (04/10/23) Adult failure to thrive (04/10/23) Unspecified fall, subsequent encounter (04/10/23) Personal history of other diseases of the nervous system and sense organs (04/10/23) Objective Data Objective Data Vital Signs: Vital Signs Temp Pulse Resp BP Pulse Ox O2 Del Method 97.8 F 74 16 118/77 99 Room Air 04/12/23 03:39 04/12/23 03:39 04/12/23 03:39 04/12/23 03:39 04/12/23 03:39 04/12/23 03:39 Oxygen Delivery Method Room Air Weight: 59 kg Body Mass Index (BMI) 16.7 Intake & Output: Intake and Output for Last 24 Hours 04/10/23 04/11/23 04/12/23 23:59 23:59 23:59 Intake Total 1120 / 1120 340 / 340 120 / 120 Output Total 200 / 200 1700 / 1700 350 / 350 Balance 920 / 920 -1360 / -1360 -230 / -230 Lab / Micro Data 04/11/23 05:00 04/11/23 05:00 Assessment & Plan Assessment/Plan (1) Alzheimer's dementia with agitation: QUALIFIERS: Alzheimer's disease onset: unspecified onset Dementia severity: severe Qualified Code(s): G30.9 - Alzheimer's disease, unspecified; F02.C11 - Dementia in other diseases classified elsewhere, severe, with agitation (2) Hx of Parkinson's disease: (3) Adult failure to thrive: (4) Falls: QUALIFIERS: Encounter type: subsequent encounter Qualified Code(s): W19.XXXD - Unspecified fall, subsequent encounter PLAN: Plan #Multiple falls/Alzheimer's disease with agitation/end-stage Parkinson disease with behavioral disturbance/adult failure to thrive -PT OT to work with patient. Case management consult. -Presently placement being pursued -04/12: Continue to manage behaviors, started on Seroquel nightly due to paranoia, anxiety, distress as well as Depakote for management during the day without causing significant sedation. We will check liver panel in the morning #Parkinson's disease -Continue Sinemet #Chronic anemia -Stable -No ongoing blood loss noted DVT prophylaxis Subcutaneous Lovenox ordered. Charges/Coding Visit Charges Inpatient E&M: 70726 Subs Hosp L1
[2023-04-12 08:34] VITALS: BP 104/73; PULSE 85; RESP 16; TEMP 36.9; O2SAT 95
[2023-04-12] MEDS: Carbidopa/Levodopa 25/100 Tablet PO ×2 (08:50→12:07)
[2023-04-12] MEDS: Ensure Plus High Protein 120 ML LIQUID PO ×2 (08:50→12:07)
[2023-04-12] MEDS: 0.9% Saline Lock 10 ML Syringe IV (08:50)
[2023-04-12] MEDS: CARBIDOPA/LEVODOPA CR 50/200 Tablet PO (08:50)
[2023-04-12] MEDS: Menthol/Lanolin/Calamine/Znox 113 GM Tube 1 APPLIC TOPICAL (08:51)
[2023-04-12] MEDS: Enoxaparin 40 MG/0.4 ML Syringe SC (08:51)
--- NOTE | 2023-04-12 09:36 | CASEMGMT ---
Discharge Planning [facility] notified via [employer] that patient will return home. Berta Sauer, Discharge Planning Asst.
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
[2023-04-12 09:55] VITALS: O2SAT 96
[2023-04-12 13:51] VITALS: PULSE 90
[2023-04-12 14:59] VITALS: BP 94/76; PULSE 85; RESP 16; TEMP 36.4; O2SAT 98
--- NOTE | 2023-04-12 16:28 | DCINST_ITS ---
Discharge Instructions Diet Discharge Diet: - (Resume previous diet) Activity Discharge Activity: - (Resume previous level of activity) Follow Up Care Test Results: Test results from this visit will be discussed in further detail at your follow- up appointment, if applicable. Discharge Plan Admission Admit Date/Time: 04/10/23 19:32 Primary Reason for Your Visit: Multiple falls and agitation Attending Provider: Lorri Hilliard Primary Care Provider: Casper Do Consulting Providers: Arsh Sotomayor Instructions Patient Instructions: ED Fall Prevention Discharge Orders/Prescriptions Prescriptions: Continued (DME) walker Qty: 1 0RF Rx Instructions: Walker with wheels, brakes, and seat carbidopa-levodopa [Sinemet] 25-100 mg Tablet 1 tab PO TIDCM@0900,1300,1800 carbidopa-levodopa 50-200 mg Tablet Extended Release 1 tab PO 0900,2200 polyethylene glycol 3350 [Miralax] 17 gram/dose Powder 17 g PO PRN sennosides-docusate sodium [Senna Plus] 8.6-50 mg Tablet 2 tab-cap PO BID PRN menthol-zinc oxide [Calmoseptine] 0.44-20.6 % Ointment 1 applic TOPICAL BID Ensure Plus High Protein 0.08 gram-1.5 kcal/mL Liquid 120 ml PO 4X/DAY acetaminophen 500 mg tablet 1,000 mg PO Q8H ipratropium-albuterol 0.5 mg-3 mg(2.5 mg base)/3 mL Solution For Nebulization 3 ml inhalation Q6HWA.RT PRN (Reason: SOB) Qty: 0 0RF quetiapine 25 mg Tablet 25 mg PO BID Qty: 60 0RF escitalopram oxalate 10 mg tablet 10 mg PO QHS Qty: 90 0RF tamsulosin 0.4 mg capsule 0.4 mg PO QHS 30 Days Qty: 30 3RF tramadol 50 mg tablet 50 mg PO Q6H PRN (Reason: Pain Score 6-10) 30 Days Qty: 120 0RF Rx Instructions: Do not fill before 12/27/2022 Referrals / Follow Up: Casper Do DO [Primary Care Provider] - Within 1 Week Disposition Disposition (needs filled in before D/C Order can be placed): Home, Self Care
--- NOTE | 2023-04-12 16:31 | PCM.DC.SUM ---
Providers Date of Admission: 04/10/23 Date of Discharge: 04/12/23 Primary Care Physician: Dr. Casper Do DO Reason For Visit: ADULT FAILURE TO THRIVE / MULTIPLE FALLS Diagnosis Discharge Diagnosis (1) Alzheimer's dementia with agitation: Status: Acute Code(s): G30.9 - Alzheimer's disease, unspecified; F02.811 - Dementia in other diseases classified elsewhere, unspecified severity, with agitation Qualifiers: Alzheimer's disease onset: unspecified onset Dementia severity: severe Qualified Code(s): G30.9 - Alzheimer's disease, unspecified; F02.C11 - Dementia in other diseases classified elsewhere, severe, with agitation (2) Hx of Parkinson's disease: Status: Acute Code(s): Z86.69 - Personal history of other diseases of the nervous system and sense organs (3) Adult failure to thrive: Status: Acute Code(s): R62.7 - Adult failure to thrive (4) Falls: Status: Acute Code(s): W19.XXXA - Unspecified fall, initial encounter Qualifiers: Encounter type: subsequent encounter Qualified Code(s): W19.XXXD - Unspecified fall, subsequent encounter Plan #Multiple falls/Alzheimer's disease with agitation/end-stage Parkinson disease with behavioral disturbance/adult failure to thrive #Parkinson's disease #Chronic anemia Medications at Discharge Home Medications walker #1 ea 04/14/20 carbidopa 25 mg-levodopa 100 mg tablet (Sinemet) 1 tab PO TIDCM@0900,1300,1800 parkinsons 02/24/21 carbidopa ER 50 mg-levodopa 200 mg tablet,extended release 1 tab PO 0900,2200 parkinsons 12/07/21 polyethylene glycol 3350 17 gram/dose oral powder (Miralax) 17 g PO PRN CONSTIPATION 07/25/22 acetaminophen 500 mg tablet 1,000 mg PO Q8H PAIN 09/18/22 food supplemt, lactose-reduced 0.08 gram-1.5 kcal/mL oral liquid (Ensure Plus High Protein) 120 ml PO 4X/DAY SUPPLEMENT 09/18/22 menthol 0.44 %-zinc oxide 20.6 % topical ointment (Calmoseptine) 1 applic topical BID 09/18/22 sennosides 8.6 mg-docusate sodium 50 mg tablet (Senna Plus) 2 tab-cap PO BID PRN 09/18/22 ipratropium 0.5 mg-albuterol 3 mg (2.5 mg base)/3 mL nebulization soln 3 ml inhalation Q6HWA.RT PRN SOB #0 mL 09/21/22 escitalopram oxalate 10 mg tablet 10 mg PO QHS DEPRESSION #90 tabs 02/01/23 tamsulosin 0.4 mg capsule 0.4 mg PO QHS BPH 30 days #30 caps 02/26/23 tramadol 50 mg tablet 50 mg PO Q6H PRN Pain Score 6-10 30 days #120 tabs 03/19/23 quetiapine 25 mg tablet 25 mg PO BID #60 tabs 04/07/23 Hospital Course Summary of Care Provided Minutes Spent on Discharge: 31 Hospital Course: NIKOLAS HANSON, is a 77 M with a significant history of dementia; Parkinson disease and COPD who presents to the emergency department 04/10/2023 because family cannot take care of him any longer due to increasing behavioral issues and also has falls. He was admitted for placement as there was no medical diagnosis that would qualify him for inpatient stay he was admitted under observation and placement pursued. Given observation status placement was difficult, ultimately decided to take patient home. Patient discharged home on home medications with . Physical Exam Narrative General: Alert, pleasant today HEENT: Normocephalic Eyes: extraocular movements grossly intact Neck: Supple Respiratory: normal respiratory effort Cardiovascular: no edema appreciated GI: nondistended Extremities: Moving all extremities Neuro: No overt focal neurological deficits Psych: Somewhat more pleasant today Weight / BMI Weight Weight: 59 kg Body Mass Index (BMI) 16.7 ABG / Lab / Microbiology Data 04/11/23 05:00 04/11/23 05:00 D/C Instructions Discharge Diet: - (Resume previous diet) Meaningful Use Info Meaningful Use Diagnoses (Choose all that apply): None applicable Discharge Plan Admission Admit Date/Time: 04/10/23 19:32 Primary Reason for Your Visit: Multiple falls and agitation Attending Provider: Lorri Hilliard Primary Care Provider: Casper Do Consulting Providers: Arsh Sotomayor Instructions Patient Instructions: ED Fall Prevention Discharge Orders/Prescriptions Prescriptions: Continued (DME) walker Qty: 1 0RF Rx Instructions: Walker with wheels, brakes, and seat carbidopa-levodopa [Sinemet] 25-100 mg Tablet 1 tab PO TIDCM@0900,1300,1800 carbidopa-levodopa 50-200 mg Tablet Extended Release 1 tab PO 0900,2200 polyethylene glycol 3350 [Miralax] 17 gram/dose Powder 17 g PO PRN sennosides-docusate sodium [Senna Plus] 8.6-50 mg Tablet 2 tab-cap PO BID PRN menthol-zinc oxide [Calmoseptine] 0.44-20.6 % Ointment 1 applic TOPICAL BID Ensure Plus High Protein 0.08 gram-1.5 kcal/mL Liquid 120 ml PO 4X/DAY acetaminophen 500 mg tablet 1,000 mg PO Q8H ipratropium-albuterol 0.5 mg-3 mg(2.5 mg base)/3 mL Solution For Nebulization 3 ml inhalation Q6HWA.RT PRN (Reason: SOB) Qty: 0 0RF quetiapine 25 mg Tablet 25 mg PO BID Qty: 60 0RF escitalopram oxalate 10 mg tablet 10 mg PO QHS Qty: 90 0RF tamsulosin 0.4 mg capsule 0.4 mg PO QHS 30 Days Qty: 30 3RF tramadol 50 mg tablet 50 mg PO Q6H PRN (Reason: Pain Score 6-10) 30 Days Qty: 120 0RF Rx Instructions: Do not fill before 12/27/2022 Referrals / Follow Up: Casper Do DO [Primary Care Provider] - Within 1 Week Disposition Disposition (needs filled in before D/C Order can be placed): Home, Self Care Charges/Coding Visit Charges Inpatient E&M: 27814 Disch Hosp >30min
== END 2023-04-12 19:40 | disposition home or self-care (01) ==
LOC: ED 19:18 → PCU 20:05
PROVIDERS: Admitting Provider Hospitalist; Emergency Provider Emergency Medicine; PCP Family Medicine; Visit Provider Internal Medicine
DX: G30.9 Alzheimer's disease, unspecified (principal); G20 Parkinson's disease; F02.C11 Dementia in other diseases classified elsewhere, severe, with agitation; J44.9 Chronic obstructive pulmonary disease, unspecified; Z87.891 Personal history of nicotine dependence; I25.10 Atherosclerotic heart disease of native coronary artery without angina pectoris; G89.29 Other chronic pain; K58.9 Irritable bowel syndrome, unspecified; R62.7 Adult failure to thrive; Z79.899 Other long term (current) drug therapy; N40.0 Benign prostatic hyperplasia without lower urinary tract symptoms; R29.6 Repeated falls; D64.9 Anemia, unspecified
CPT/HCPCS: 36415; 80048; 85025; 90471; 96360; 96372; 97162; 97166; 99221; 99285; J7030; A4216; G0378

== ENCOUNTER 2023-04-19 20:00 | Inpatient (IN) | payer MEDICARE, OTHER, SELFPAY ==
[2023-04-19] VITALS (7 sets, daily range): BP systolic 125–153; BP diastolic 56–101; PULSE 62–75; RESP 18–24; TEMP 35.8–36.3; O2SAT 93–98; BMI 17.1; BMI 16.7; BMI 17.0
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
--- NOTE | 2023-04-19 20:10 | CT_ITS ---
We are attempting to reach an attending provider to discuss findings. An addendum with communication details will be sent when the communication is complete. INDICATION: Neuro deficit, acute, stroke suspected EXAMINATION: CT BRAIN WITH CONTRAST TECHNIQUE: Routine carotid CT angiogram protocol was performed without and with IV contrast. In addition, images were obtained of the [place]. NASCET criteria using the distal ICAs for comparison were used for evaluation of stenoses. 3D reconstructions were reviewed. A radiation dose optimization technique was used for this scan. IV Contrast dosage and agent: 100 mL of Isovue-370. COMPARISON: Prior comparison exam April 19, 2023, CT head and brain. FINDINGS: --CTA NECK: AORTIC ARCH AND BRANCHES: Normal anatomy, patent. RIGHT CCA: No occlusion, significant stenosis or dissection. Carotid bulb intimal calcifications with much less than 25% luminal narrowing. RIGHT ICA: No occlusion, significant stenosis or dissection. LEFT CCA: No occlusion, significant stenosis or dissection. Carotid bulb intimal calcifications with much less than 25% luminal narrowing. Proximal the carotid bulb there is some soft plaque resulting in less than 25% luminal narrowing. LEFT ICA: No occlusion, significant stenosis or dissection. RIGHT VERTEBRAL ARTERY: Tortuous vessel without occlusion, significant stenosis or dissection. LEFT VERTEBRAL ARTERY: Tortuous vessel without occlusion, significant stenosis or dissection. NECK SOFT TISSUES: 18mm right thyroid nodule mostly hypodense lesion with areas of central enhancement. Probably with ultrasound. No cervical lymphadenopathy or mass lesion. Several small foci of gas and the supraclavicular left base of the neck may represent recent vascular access attempt. Correlate clinically. Severe degenerative changes C2-3 endplates with extensive irregular sclerosis. Multilevel degenerative disc and endplate changes. Lung apices show advanced centrilobular and paraseptal emphysema. No nodule or mass. No consolidation. --CTA HEAD: --Anterior circulation: ICAs: No significant stenosis at the intracranial/visualized segments. ACAs: No significant stenosis at the visualized segments. ACOM: Present. MCAs: No significant stenosis at the visualized segments. --Posterior circulation: PCOMs: Absent bilaterally. ironing worker: No significant stenosis at the visualized segments. BASILAR ARTERY: No significant stenosis. VERTEBRAL ARTERIES: No significant stenosis at the intradural/visualized segments. Diffuse, relative smaller diameter intracranial right vertebral artery compared to the left representing normal variant anatomy. No evidence of intracranial aneurysm or vascular malformation. CT/STROKE CTA Head AND Neck W/Con IMPRESSION: No large vessel occlusion. Less than 25% luminal narrowing carotid bulbs and distal right common carotid artery. Tortuous bilateral vertebral arteries may represent chronic hypertension. 18 mm right thyroid lobe nodule with central areas of enhancement. Correlation with thyroid ultrasound is recommended. Several tiny foci of of gas supraclavicular left neck, overlying left subclavian vein. Correlate for vascular access attempt. Advanced centrilobular and paraseptal emphysema. Electronically Signed: Gennaro Mayen DO at 20:59 EDT ,
[2023-04-19 20:13] LABS: Absolute Lymphocyte Count 1.87 X10^3/uL (0.83-4.51); Basophil# 0.03 X10^3/uL; Basophil% 0.5 % (0-1); Eosinophils% 5.2 % (0-5); Hematocrit 40.3 % (40-54); Lymphocyte # 1.87 X10^3/ul (0.83-4.51); Lymphocyte % 32.6 % (19-41); Mean Corp Hgb Conc 32.3 g/dL (32-36); Mean Corpuscular Hgb 31.2 pg (27.0-32.0); Mean Corpuscular Volume 96.6 fL (80-94); Mean Platelet Vol. 10.9 fl (6.2-12.0); Monocyte% 8.7 % (0-10); NRBC Flagged by Analyzer 0 % (0-5); Neutrophil # 2.97 X10^3/uL (2.7-7.7); Platelet Count 193 K/mm3 (150-450); RBC Distribution Width CV 13.1 % (11.6-14.6); RBC Distribution Width SD 46.9 fl (35.1-43.9); Red Blood Count 4.17 M/mm3 (4.6-6.2); White Blood Count 5.7 K/mm3 (4.4-11.0)
--- NOTE | 2023-04-19 20:14 | EDS_ITS ---
HPI History of Present Illness Chief Complaint: Stroke Alert Narrative Narrative: 77-year-old male presenting for concern for stroke. Patient last known well 1300. Reported by EMS as staring up at the aviva since then. They believe that his left side is weaker than his right side. Patient was met at the door and is unresponsive. He is not following any commands or speaking. He is groaning incoherently. PFSH [facility] Medical History Abdominal aortic aneurysm Anxiety Atherosclerotic heart disease of [place] coronary artery without angina pectoris Behavioral disorder Benign prostate hyperplasia Cervicalgia Chronic pain COPD (chronic obstructive pulmonary disease) Former smoker Frequent falls Herniation of nucleus pulposus Hx of Parkinson's disease Hypokalemia IBS (irritable bowel syndrome) Parkinson disease Parkinson's disease dementia Raynauds disease Scoliosis deformity of spine Urinary frequency Urine incontinence Home Medications walker #1 ea 04/14/20 [Rx Last Taken Unknown] carbidopa 25 mg-levodopa 100 mg tablet (Sinemet) 1 tab PO TIDCM@0900,1300,1800 parkinsons 02/24/21 [History Last Taken 09/18/22 09:00] carbidopa ER 50 mg-levodopa 200 mg tablet,extended release 1 tab PO 0900,2200 parkinsons 12/07/21 [History Last Taken 09/18/22 13:00] polyethylene glycol 3350 17 gram/dose oral powder (Miralax) 17 g PO PRN CONSTIPATION 07/25/22 [History Last Taken 09/17/22 05:25] acetaminophen 500 mg tablet 1,000 mg PO Q8H PAIN 09/18/22 [History Last Taken 09/17/22 05:25] food supplemt, lactose-reduced 0.08 gram-1.5 kcal/mL oral liquid (Ensure Plus High Protein) 120 ml PO 4X/DAY SUPPLEMENT 09/18/22 [History Last Taken 09/17/22 05:25] menthol 0.44 %-zinc oxide 20.6 % topical ointment (Calmoseptine) 1 applic topical BID 09/18/22 [History Last Taken 09/17/22 05:26] sennosides 8.6 mg-docusate sodium 50 mg tablet (Senna Plus) 2 tab-cap PO BID PRN 09/18/22 [History Last Taken 09/17/22 05:25] ipratropium 0.5 mg-albuterol 3 mg (2.5 mg base)/3 mL nebulization soln 3 ml inhalation Q6HWA.RT PRN SOB #0 mL 09/21/22 [Rx Last Taken Unknown] escitalopram oxalate 10 mg tablet 10 mg PO QHS DEPRESSION #90 tabs 02/01/23 [Rx Last Taken Unknown] tamsulosin 0.4 mg capsule 0.4 mg PO QHS BPH 30 days #30 caps 02/26/23 [Rx Last Taken Unknown] quetiapine 25 mg tablet 25 mg PO BID #60 tabs 04/07/23 [Rx Last Taken Unknown] Allergy/AdvReac Type Severity Reaction Status Date / Time pregabalin [From Lyrica] AdvReac hallucinati Verified 04/06/23 15:52 ons Family History Brother Alcoholism Father Heart disease Myocardial infarction Uncle Heart disease Myocardial infarction Grandfather Heart disease Myocardial infarction Mother Heart disease Surgical History History of cataract surgery History of colonoscopy History of left hip hemiarthroplasty History of tonsillectomy Social History household members: spouse Smoking Status: Former smoker how long ago did patient quit smokin alcohol intake: never substance use type: does not use what type of physical activity do you participate in: walking frequency: daily ROS ROS ED Review of Systems ROS Unobtainable: due to mental condition and due to mental status EXAM Physical Exam Const Vital Signs: 04/19/23 20:19 04/19/23 20:26 04/19/23 20:02 Temperature 97.4 F L Temperature Source Axillary Pulse Rate 62 66 Respiratory Rate 24 H 20 H Blood Pressure 125/101 H 125/101 H Blood Pressure Mean 109 109 Pulse Ox 96 98 Oxygen Delivery Method Room Air Room Air Room Air 04/19/23 20:26 04/19/23 21:02 Temperature 97.1 F L Temperature Source Temporal Pulse Rate 66 69 Respiratory Rate 18 22 H Blood Pressure 153/83 H 129/56 H Blood Pressure Mean 106 80 Pulse Ox 93 95 Oxygen Delivery Method Room Air Room Air Positive cachectic and unkempt General Appearance ED: unkempt and cachectic Nutritional Appearance: cachectic HEENT Reports dry mucous membranes Mouth ED: Yes dry mucous membranes Mouth: dry mucous membranes Eyes PERRL Resp normal respiratory effort Auscultation: Negative for rales, rhonchi or wheezes GI normal to inspection, nondistended, normoactive bowel sounds Neuro Kriss Coma Scale: document GCS findings None Withdraws to Pain Confused 9 Psych Appearance: unkempt NIHSS NIHSS Initial: 1a Level of Consciousness: 1 1b LOC Questions (Score 2 if aphasic/stupor): 1 1c LOC Commands (Only score 1st attempt): 2 2 Best Gaze (If aphasic, use reflexive mvmts.): 0 3 Visual: 0 4 Facial Palsy: 0 5 Motor Arm Right (UN = amputation/fusion): 2 5 Motor Arm Left: 2 6 Motor Leg Right: 2 6 Motor Leg Left: 2 7 Limb ataxia (Only + if out of proportion): 0 8 Sensory (Aphasia/stupor=0 or 1, coma=2): 0 9 Best Language: 3 10 Dysarthria (mute, coma=2, intubated=UN): UN 11 Extinction and Inattention (only scored if +): 1 Total Score: 16 MDM MDM MDM Narrative Medical decision making narrative: Patient presenting as stroke team. Last known well 1 PM this afternoon.. He has been staring upward since this time. Initially on exam he was not following any commands and was not awake. Patient taken to CT and had CT brain and CTA of the head and neck. Repeat evaluation he has an NIH of 16. Patient is not a candidate for tPA given the timeframe. Stroke neurologist beamed in and does agree. She recommended a metabolic work-up and admission for MRI. CBC was obtained and shows no leukocytosis. Hemoglobin hematocrit are stable. Platelets are normal. Renal function is within normal limits. Electrolytes are unremarkable. High-sensitivity troponin is 4. EKG on my interpretation looks like a junctional rhythm is accelerated at [address] elevation or depression. Chest x-ray concerning for right lower lobe infiltrate, and interpretation. Radiology interprets this and agrees. CT brain and CTA were both interpreted as negative for acute process. There was noted to be a thyroid nodule. There is also some subcutaneous gas in the left supraclavicular area which the radiologist did not comment on to me when he called. There is no instrumentation this occurred here. After discussion with the hospitalist and the patient's we determined that this could get worse or the patient does not do well they would just make him comfortable, however at this point were going to admit him for stroke and pneumonia. He was given vancomycin and Zosyn. Patient will need placement after this likely. Impression: 1. CVA 2. Pneumonia Lab Data Attestation: I reviewed the patient's lab results. Labs: Laboratory Results - last 24 hr 04/19/23 20:00 WBC 5.7 RBC 4.17 L Hgb 13.0 Hct 40.3 MCV 96.6 H MCH 31.2 MCHC 32.3 RDW Std Deviation 46.9 H RDW Coeff of Boni 13.1 Plt Count 193 MPV 10.9 Immature Gran % (Auto) 1.000 H Neut % (Auto) 52.0 Lymph % (Auto) 32.6 [place] % (Auto) 8.7 Eos % (Auto) 5.2 H Baso % (Auto) 0.5 Absolute Neuts (auto) 3.0 Absolute Lymphs (auto) 1.87 Nucleated RBC % 0 PT 14.0 INR 1.1 APTT 32.7 Sodium 141 Potassium 4.4 Chloride 107 Carbon Dioxide 32.0 Anion Gap 2 L BUN 15 Creatinine 0.84 Estim Creat Clear Calc 63.92 Est GFR (MDRD) Af Amer 115 Est GFR (MDRD) Non-Af 95 BUN/Creatinine Ratio 17.9 Glucose 92 Calcium 8.7 Troponin I High Sens 4 Radiography Diagnostic Testing: Clinical Impression(s) from Imaging Studies Brain CT 04/19/23 20:10 IMPRESSION: No acute intracranial pathology. Chronic small vessel ischemic changes of the white matter and diffusely decreased parenchymal volume, likely age-related. No appreciable change compared to prior comparison exam. Electronically Signed: Gennaro Mayen DO at 20:22 EDT , ADDENDUM: 04/19/232040 IMPRESSION: No acute intracranial pathology. Chronic small vessel ischemic changes of the white matter and diffusely decreased parenchymal volume, likely age-related. No appreciable change compared to prior comparison exam. N.B. : The above Results were Read Back by Gennaro Mayen DO to Justin Whittington MD, and understanding confirmed on 04/19/2023 20:35:04 (ET). Electronically Signed: Gennaro Mayen DO at 20:22 EDT , Head/Neck CTA 04/19/23 20:10 IMPRESSION: No large vessel occlusion. Less than 25% luminal narrowing carotid bulbs and distal right common carotid artery. Tortuous bilateral vertebral arteries may represent chronic hypertension. 18 mm right thyroid lobe nodule with central areas of enhancement. Correlation with thyroid ultrasound is recommended. Several tiny foci of of gas supraclavicular left neck, overlying left subclavian vein. Correlate for vascular access attempt. Advanced centrilobular and paraseptal emphysema. Electronically Signed: Gennaro Mayen DO at 20:59 EDT , ADDENDUM: 04/19/23 2108 IMPRESSION: No large vessel occlusion. Less than 25% luminal narrowing carotid bulbs and distal right common carotid artery. Tortuous bilateral vertebral arteries may represent chronic hypertension. 18 mm right thyroid lobe nodule with central areas of enhancement. Correlation with thyroid ultrasound is recommended. Several tiny foci of of gas supraclavicular left neck, overlying left subclavian vein. Correlate for vascular access attempt. Advanced centrilobular and paraseptal emphysema. N.B. : The above Results were Read Back by Gennaro Mayen DO to Justin Whittington DO, and understanding confirmed on 04/19/2023 21:01:35 (ET). Electronically Signed: Gennaro Mayen DO at 20:59 EDT , Chest X-Ray 04/19/23 21:00 IMPRESSION: 1. Developing consolidation right lower lobe. Electronically Signed: Gennaro Mayen DO at 21:36 EDT , Discharge Plan Triage Chief Complaint: Stroke Alert ED Provider: Justin Whittington Dx/Rx/DC Orders Primary Care Provider: Casper Do
[2023-04-19 20:20] LABS: International Normalized Ratio 1.1
[2023-04-19 20:21] LABS: Partial Thromboplast Time 32.7 Seconds (24.1-36.2)
--- NOTE | 2023-04-19 20:23 | ED.RN ---
osu beaming in at this time
[2023-04-19 20:30] LABS: Anion Gap 2 (5-15); BUN 15 mg/dL (7-18); BUN/Creat Ratio 17.9 RATIO (10-20); Calcium,Total 8.7 mg/dL (8.5-10.1); Chloride 107 mmol/L (98-107); Creatinine, Serum 0.84 mg/dL (0.70-1.30); EST Glomerular Filtration Rate 95 mL/min (>60); Est Glom Filt Rate - Afr Amer 115 mL/min (>60); Estimated Creatinine Clearance 63.92 ml/min; Glucose 92 mg/dL (74-106); Potassium 4.4 mmol/L (3.5-5.1); Sodium Level 141 mmol/L (136-145); Troponin-I HS 4 pg/mL (3.0-78.0)
--- NOTE | 2023-04-19 21:00 | RAD_ITS ---
INDICATION: Neuro deficit, acute, stroke suspected EXAMINATION/TECHNIQUE: X-RAY - XR Chest 1 View COMPARISON: Prior comparison exam August 18, 2022; chest x-ray. FINDINGS: LINES/DEVICES: None. Extraneous overlying heart monitoring wires. LUNGS: Developing consolidation right lower lobe. No nodules, pleural effusion or pneumothorax. MEDIASTINUM AND CARDIOVASCULAR STRUCTURES: Normal size and contour of the cardiomediastinal silhouette. No evidence of pulmonary vascular congestion. BONES AND SOFT TISSUES: No fracture or focal osseous lesion. Normal and humeral RAD/Chest 1 View IMPRESSION: 1. Developing consolidation right lower lobe. Electronically Signed: Gennaro Mayen DO at 21:36 EDT ,
--- NOTE | 2023-04-19 21:52 | PCM.HP.STD ---
HPI - General General Date of Admission: 04/19/23 Date of Service: 04/19/23 Chief Complaint: Decreased responsiveness. HPI Narrative The patient is a 77 y/o M w/ PMHx: Nonobstructive CAD, Parkinson's disease, Alzheimer's dementia with known agitation/behavioral disturbance history, AAA, COPD, Former tobacco use, IBS, Anxiety and Depression, recent admission 04/06/23 secondary to worsening behavior, worsening dementia, adult failure to thrive for placement secondary to inability to safely care for him at home; however, there was notable difficulty obtaining placement and he discharged to home who was then again readmitted 04/10/23 for similar concerns and inability to safely care for him at home however again unable to discharge to memory unit with discharge to home 04/12/23 now re-presents to the [facility] ED on 04/19/23 with history of eating lunch at approximately 1 PM while in the care of an in-home caregiver reportedly laying down for rest at approximately 2 PM and when she checked on him between 2 and 4 PM she noticed that he was staring at the ceiling and less responsive supposedly kicking and punching the air in slow motion intermittently eventually prompting her to call the with EMS call and transition to the ED for possible stroke. In the ED per [facility] stroke alert, NIHSS 7 with 1 for question correctness, 2 for not obeying commands, 2 for severe aphasia, 2 severe to total dysarthria. Work-up in the ED included CBC with WBC 5.7, human 13, platelet 183 without marked shift, coags unremarkable, BMP unremarkable, troponin 4, CT head with no acute intracranial pathology, chronic small vessel ischemic changes of white matter and diffusely decreased parenchymal volume likely age-related with no appreciable change compared to prior, CTA head and neck w/ No large vessel occlusion, < 25% luminal narrowing carotid bulbs and distal right common carotid artery, tortuous bilateral vertebral arteries may represent chronic hypertension, 18 mm right thyroid lobe nodule with central areas of enhancement, several tiny foci of of gas supraclavicular left neck, overlying left subclavian vein advanced centrilobular and paraseptal emphysema, chest x-ray with developing right lower lobe consolidation, EKG with junctional rhythm with no acute evidence of ischemia. Given recent serial admissions although suspected aspiration in the ED patient administered IV vancomycin and IV Zosyn. [facility] Medical History Abdominal aortic aneurysm Anxiety Atherosclerotic heart disease of [place] coronary artery without angina pectoris Behavioral disorder Benign prostate hyperplasia Cervicalgia Chronic pain COPD (chronic obstructive pulmonary disease) Former smoker Frequent falls Herniation of nucleus pulposus Hx of Parkinson's disease Hypokalemia IBS (irritable bowel syndrome) Parkinson disease Parkinson's disease dementia Raynauds disease Scoliosis deformity of spine Urinary frequency Urine incontinence Home Medications walker #1 ea 04/14/20 [Rx Last Taken Unknown] carbidopa 25 mg-levodopa 100 mg tablet (Sinemet) 1 tab PO TIDCM@0900,1300,1800 parkinsons 02/24/21 [History Last Taken 09/18/22 09:00] carbidopa ER 50 mg-levodopa 200 mg tablet,extended release 1 tab PO 0900,2200 parkinsons 12/07/21 [History Last Taken 09/18/22 13:00] polyethylene glycol 3350 17 gram/dose oral powder (Miralax) 17 g PO PRN CONSTIPATION 07/25/22 [History Last Taken 09/17/22 05:25] acetaminophen 500 mg tablet 1,000 mg PO Q8H PAIN 09/18/22 [History Last Taken 09/17/22 05:25] food supplemt, lactose-reduced 0.08 gram-1.5 kcal/mL oral liquid (Ensure Plus High Protein) 120 ml PO 4X/DAY SUPPLEMENT 09/18/22 [History Last Taken 09/17/22 05:25] menthol 0.44 %-zinc oxide 20.6 % topical ointment (Calmoseptine) 1 applic topical BID rash 09/18/22 [History Last Taken 09/17/22 05:26] sennosides 8.6 mg-docusate sodium 50 mg tablet (Senna Plus) 2 tab-cap PO BID PRN constipa 09/18/22 [History Last Taken 09/17/22 05:25] ipratropium 0.5 mg-albuterol 3 mg (2.5 mg base)/3 mL nebulization soln 3 ml inhalation Q6HWA.RT PRN SOB #0 mL 09/21/22 [Rx Last Taken Unknown] escitalopram oxalate 10 mg tablet 10 mg PO QHS DEPRESSION #90 tabs 02/01/23 [Rx Last Taken Unknown] tamsulosin 0.4 mg capsule 0.4 mg PO QHS BPH 30 days #30 caps 02/26/23 [Rx Last Taken Unknown] quetiapine 25 mg tablet 25 mg PO BID agitation #60 tabs 04/07/23 [Rx Last Taken Unknown] Allergy/AdvReac Type Severity Reaction Status Date / Time pregabalin [From Lyrica] AdvReac hallucinati Verified 04/06/23 15:52 ons Family History Brother Alcoholism Father Heart disease Myocardial infarction Uncle Heart disease Myocardial infarction Grandfather Heart disease Myocardial infarction Mother Heart disease Surgical History History of cataract surgery History of colonoscopy History of left hip hemiarthroplasty History of tonsillectomy Social History household members: spouse Smoking Status: Former smoker how long ago did patient quit smokin alcohol intake: never substance use type: does not use what type of physical activity do you participate in: walking frequency: daily ROS Review of Systems ROS Unobtainable: due to encephalopathy Vital Signs Vital Signs Vital Signs: 04/19/23 20:19 04/19/23 20:26 04/19/23 20:02 Temperature 97.4 F L Temperature Source Axillary Pulse Rate 62 66 Respiratory Rate 24 H 20 H Blood Pressure 125/101 H 125/101 H Blood Pressure Mean 109 109 Pulse Ox 96 98 Oxygen Delivery Method Room Air Room Air Room Air 04/19/23 20:26 04/19/23 21:02 Temperature 97.1 F L Temperature Source Temporal Pulse Rate 66 69 Respiratory Rate 18 22 H Blood Pressure 153/83 H 129/56 H Blood Pressure Mean 106 80 Pulse Ox 93 95 Oxygen Delivery Method Room Air Room Air Weight Weight: 130 lb 8.218 oz Body Mass Index (BMI) 16.7 Physical Exam Narrative Physical Examination: General: Awake but does not appear alert, unresponsive, unable to answer any orientation questions although per telestroke patient had significant dysarthria. Skin: normal color, normal turgor, no icterus, no cyanosis except various extremity staged ecchymoses. HEENT: AT/NC, EOM difficult to assess as not following any commands, PERRLA, mildly dry MM, no carotid bruits or JVD noted. Lungs: Mildly diminished, greater bases, appropriate effort, no rales, ronchi or wheezing. Heart: Currently regular rate and rhythm; no gallop, rub audible. Abdomen: Soft, thin habitus, NTTP, ND, hyperactive BS, no HSM. Extremities: No cyanosis, clubbing, or edema, obvious muscle and fat loss. Neurological: Awake but does not appear alert, unresponsive, unable to answer any orientation questions although per telestroke patient had significant dysarthria,, cognitive function significantly impaired baseline with underlying advancing dementia, currently he notably decreased from his baseline, pupils equally reactive to light and accommodation, cranial nerves unable to be assessed well given acute presentation, currently not moving extremities and unable to ascertain sensation, equivocal Babinski, not performing any requested activities including HTS and FTN. Psychiatric: Affect appears flat, no acute evidence of depressive or anxiety feelings but does have underlying history. Results Lab / Micro Data 04/19/23 20:00 04/19/23 20:00 Labs: Laboratory Results - last 24 hr 04/19/23 20:00: WBC 5.7, RBC 4.17 L, Hgb 13.0, Hct 40.3, MCV 96.6 H, MCH 31.2, MCHC 32.3, RDW Std Deviation 46.9 H, RDW Coeff of Boni 13.1, Plt Count 193, MPV 10.9, Immature Gran % (Auto) 1.000 H, Neut % (Auto) 52.0, Lymph % (Auto) 32.6, [place] % (Auto) 8.7, Eos % (Auto) 5.2 H, Baso % (Auto) 0.5, Absolute Neuts (auto) 3.0, Absolute Lymphs (auto) 1.87, Nucleated RBC % 0, PT 14.0, INR 1.1, APTT 32.7, Sodium 141, Potassium 4.4, Chloride 107, Carbon Dioxide 32.0, Anion Gap 2 L, BUN 15, Creatinine 0.84, Estim Creat Clear Calc 63.92, Est GFR (MDRD) Af Amer 115, Est GFR (MDRD) Non-Af 95, BUN/Creatinine Ratio 17.9, Glucose 92, Calcium 8.7, Troponin I High Sens [address] 04/19/23 20:10 IMPRESSION: No acute intracranial pathology. Chronic small vessel ischemic changes of the white matter and diffusely decreased parenchymal volume, likely age-related. No appreciable change compared to prior comparison exam. Electronically Signed: Gennaro Mayen DO at 20:22 EDT , ADDENDUM: 04/19/23 204 IMPRESSION: No acute intracranial pathology. Chronic small vessel ischemic changes of the white matter and diffusely decreased parenchymal volume, likely age-related. No appreciable change compared to prior comparison exam. N.B. : The above Results were Read Back by Gennaro Mayen DO to Justin Whittington MD, and understanding confirmed on 04/19/2023 20:35:04 (ET). Electronically Signed: Gennaro Mayen DO at 20:22 EDT , Head/Neck CTA 04/19/23 20:10 IMPRESSION: No large vessel occlusion. Less than 25% luminal narrowing carotid bulbs and distal right common carotid artery. Tortuous bilateral vertebral arteries may represent chronic hypertension. 18 mm right thyroid lobe nodule with central areas of enhancement. Correlation with thyroid ultrasound is recommended. Several tiny foci of of gas supraclavicular left neck, overlying left subclavian vein. Correlate for vascular access attempt. Advanced centrilobular and paraseptal emphysema. Electronically Signed: Gennaro Mayen DO at 20:59 EDT , ADDENDUM: 04/19/232107 IMPRESSION: No large vessel occlusion. Less than 25% luminal narrowing carotid bulbs and distal right common carotid artery. Tortuous bilateral vertebral arteries may represent chronic hypertension. 18 mm right thyroid lobe nodule with central areas of enhancement. Correlation with thyroid ultrasound is recommended. Several tiny foci of of gas supraclavicular left neck, overlying left subclavian vein. Correlate for vascular access attempt. Advanced centrilobular and paraseptal emphysema. N.B. : The above Results were Read Back by Gennaro Mayen DO to Justin Whittington DO, and understanding confirmed on 04/19/2023 21:01:35 (ET). Electronically Signed: Gennaro Mayen DO at 20:59 EDT , Chest X-Ray 04/19/23 21:00 IMPRESSION: 1. Developing consolidation right lower lobe. Electronically Signed: Gennaro Mayen DO at 21:36 EDT , Assessment & Plan Assessment/Plan (1) CVA (cerebral vascular accident): PLAN: Plan The patient is a 77 y/o M w/ PMHx: Nonobstructive CAD, Parkinson's disease, Alzheimer's dementia with known agitation/behavioral disturbance history, AAA, COPD, Former tobacco use, IBS, Anxiety and Depression, recent admission 04/06/23 secondary to worsening behavior, worsening dementia, adult failure to thrive for placement secondary to inability to safely care for him at home; however, there was notable difficulty obtaining placement and he discharged to home who was then again readmitted 04/10/23 for similar concerns and inability to safely care for him at home however again unable to discharge to memory unit with discharge to home 04/12/23 now re-presents to the [facility] ED on 04/19/23 with history of eating lunch at approximately 1 PM while in the care of an in-home caregiver reportedly laying down for rest at approximately 2 PM and when she checked on him between 2 and 4 PM she noticed that he was staring at the ceiling and less responsive. #1. Dysarthria, aphasia, decreased interactiveness/unresponsive concerning for possible TIA/CVA, compounded by noted right lower lobe pneumonia as noted #2: Will admit to PCU, will obtain MRI Brain, ECHO, PT/OT/Speech/Nutrition evaluation per protocol. Will allow permissive HTN, maintain on SD ASA given unsafe oral intake, AM FLP, fall precautions. Mag, TSH/FT4, FLP, HgbA1c requested. Maintain on fall and aspiration precautions. Also given atypical behavior will obtain EEG. We will continue treatment of pneumonia concurrently as noted #2. Once work-up obtained low threshold to obtain Neurology consultation. #2. RLL Pneumonia, Suspected Aspiration but given recent serial admissions, possible GN/GP organism combination: Will maintain on oxygen with wean as tolerated to room air, PRN albuterol, maintained on IV Zosyn and Vancomycin w/ pending MRSA screen with de-escalation as able, HOB, IS parameters w/ pending sputum cultures, full respiratory viral panel and urine antigens. #3. Possible Acute Complicated Urinary Tract Infection: UA upon ED evaluation remarkable, pending UCx, continue IVFs, monitor I/Os, continue IV Zosyn as noted above w/ transition as able pending sensitivities and speciation. #4. Incidental thyroid nodule: CT scan with noted 18 mm right thyroid lobe nodule, will need follow-up thyroid ultrasound, TSH and free T4 requested. #5. Adult failure to thrive with progressing Alzheimer's dementia with known agitation/behavioral disturbance history: Complicated by recent serial admissions secondary to inability to appropriately be cared for on an outpatient basis with agitation and high possibility of harm to himself or his significant, therapies consulted as noted as well as case management. If patient status does not improve following evaluation as noted above from lengthy discussion with spouse would plan hospice consultation at that point. #6. Chronic COPD: Not on any chronic oxygen, will maintain on ATC budesonide therapy however low threshold de-escalate if patient agitated with any of the therapies, PRN albuterol, HOB, IS parameters. #7. Parkinson's disease: Holding home Sinemet regimen until oral intake safe, maintain on fall precautions, PT/OT/case management consultation for discharge planning. #8. Anxiety and depression: Holding home low-dose Seroquel as well as escitalopram until oral intake safe. #9. AAA: Most recent imaging 02/23/2021 CT abdomen and pelvis with a 4.5 cm infrarenal abdominal aortic aneurysm, encourage continued outpatient evaluation and monitoring. #10. Former tobacco use: Quit 2016, encourage continued tobacco cessation. #11. BPH: Holding home Flomax regimen until oral intake safe. #12. Nonobstructive CAD: Chart reported history of remote 2012 cardiac catheterization with nonobstructive disease, given significantly elevated fall risk patient has not been on aspirin of note nor is patient on any hypertensive regimen or statin therapy, given #1 will initiate SD ASA and reassess pending further evaluation as noted. #13. DVT prophylaxis: Lovenox. #14. CODE status: Patient's is his decision maker. Discussed CODE status at length including difference between FULL code, DNR-CCA and DNR-CC status. Following discussions about the differences in these status, requested DNR-CCA, no intubation; however, if patient does not improve or clinically declines she is highly amenable to hospice consultation and comfort care measures transition. Advanced Care Planning Face to Face Time: 16 minutes. Admission Evaluation Time spent evaluating chart, patient history, patient evaluation, care planning and discussion with specialists: 75 minutes. Charges/Coding Visit Charges Inpatient E&M: 69766 Init Hosp L3 Procedures Hospitalists Procedures: 69581 Advncd Care Plan 30 Min
[2023-04-19 22:04] LABS: Mucous, Urine 0 SEEN /hpf (<or=2+); Squamous Epithelial Cells - UA 0 SEEN /hpf (0-5)
[2023-04-19 22:06] LABS: Color, Urine Yellow (Yellow); Glucose, Dipstick Normal (Normal); Ketone-Dipstick 5 mg/dl (Negative); Leukocyte Esterase-Dipstick 500 /ul (Negative); Nitrite-Dipstick Negative (Negative); Occult Blood-Urine 10 /ul (Negative); Protein-Dipstick Negative (Negative); Urine Bilirubin Dipstick Negative (Negative); Urine Clarity Sl. Cloudy (Clear); Urine Urobilinogen 4 mg/dl (Normal)
[2023-04-19 22:16] LABS: Bacteria 2+ /hpf (None Seen); Red Blood Cells-Urine 0-5 SEEN /hpf (0-5); White Blood Cells 25-50 SEEN /hpf (0-5)
[2023-04-19] MEDS: Vancomycin IV 1,000 MG/200 ML BAG 200 MG IV (22:43)
[2023-04-19 23:08] LABS: Magnesium 2.5 mg/dL (1.6-2.6)
--- NOTE | 2023-04-19 23:29 | ECHOD_ITS ---
Reason For Study: CVA Procedure This was a 2D Doppler, Color Flow transthoracic echocardiogram. The study was technically limited. The study was technically difficult. Definity deferred due to off axis images. Exam performed portable in patient room. Left Ventricle Normal LV size. Grossly normal left ventricular function. The left ventricular ejection fraction is 60 %. Right Ventricle Normal RV size. Normal systolic function. Atria Normal left atrium. Normal right atrium. Mitral Valve Mild focal mitral valve calcification of the anterior leaflet. There is no mitral valve stenosis. No mitral valve insufficiency. Tricuspid Valve Normal tricuspid valve. Trivial tricuspid valve insufficiency. Right ventricular systolic pressure estimated to be 21 mmHg. Aortic Valve The aortic valve is not well visualized in the short axis view. There is no aortic stenosis. Pulmonic Valve The pulmonic valve is not well visualized. Great Vessels Normal aortic root. Pericardium/Pleural No pericardial effusion. MMode/2D Measurements & Calculations LVIDd: 3.9 cm IVSd: 0.92 cm Ao root diam: 3.7 cm LVIDs: 2.4 cm LVPWd: 0.89 cm RVDd: 3.6 cm FS: 38.2 % LA dimension(2D): 3.3 cm Doppler Measurements & Calculations MV E max brody: 67.6 cm/sec Lat Peak E' Brody: 9.8 cm/sec Med Peak E' Brody: 8.4 cm/sec MV A max brody: 70.7 cm/sec E/E' lat: 6.9 E/E' med: 8.1 MV E/A: 0.96 Ao V2 max: 89.3 cm/sec LV V1 max: 58.3 cm/sec TR max brody: 214.0 cm/sec Ao max P.2 mmHg LV V1 max P.4 mmHg TR max P.3 mmHg ECHO/Echo Complete Interpretation Summary The left ventricular ejection fraction is 60 %. Trivial tricuspid valve insufficiency. Right ventricular systolic pressure estimated to be 21 mmHg. The study was technically difficult. Ordering Physician: Delma Nunez Referring Physician: Drew Do M.D. Performed By: Robina Frazier RDCS
--- NOTE | 2023-04-19 23:29 | MRI_ITS ---
STUDY: MRI BRAIN WITHOUT CONTRAST REASON FOR EXAM: Male, 77 years old. CVA TECHNIQUE: Standardized multiplanar fat and water weighted pulse sequences were obtained. COMPARISON: CT 04/19/2023 FINDINGS: There is moderate cerebral atrophy with widening of the extra-axial spaces and ventricular dilatation. There are multiple white matter hyperintensities, distributed throughout the deep white matter tracts of the cerebral hemispheres, consistent with moderate chronic white matter ischemic changes. There is no evidence for recent intracranial ischemia or other cause of cytotoxic edema on diffusion weighted imaging (DWI). Normal T2* images of the brain without demonstrated susceptibility artifact. There is no demonstrated hemosiderin stain. Normal bilateral basal ganglia. Normal thalami. There is no extra-axial fluid accumulation. Normal flow voids within the major intracranial circulation suggesting patency by spin echo criteria. Normal sella turcica, pituitary gland, infundibular stalk, optic chiasm and hypothalamus. Normal tectal plate and pineal gland. Normal midbrain, richie and medulla. Normal cerebellum. Normal basal cisterns. Normal bilateral temporal bones. Normal bilateral internal auditory canals. There are bilateral ocular lens implants with otherwise normal intraorbital contents. Normal visualized paranasal sinuses. Normal calvarium and skull base. Normal visualized soft tissue structures. Normal visualized upper cervical spine. MRI/Brain without Contrast IMPRESSION: Involutional changes of the brain, as described above. No acute infarct. Electronically Signed: Zuhair Bonner MD at 12:20 EDT ,
[2023-04-20] VITALS (10 sets, daily range): BP systolic 117–168; BP diastolic 76–120; PULSE 60–83; RESP 14–20; TEMP 35.8–37.3; O2SAT 94–98; BMI 17.0
[2023-04-20] MEDS: Aspirin 300 MG Suppository RC ×2 (00:45→11:39)
[2023-04-20] MEDS: 0.9% Normal Saline 1,000 ML 100 ML IV ×3 (00:45→21:37)
[2023-04-20 04:32] LABS: M R Staph aureus DNA By PCR Negative (Negative); Probe Check PASS; Specimen Processing Control PASS
--- NOTE | 2023-04-20 04:45 | PCM.RX.CS ---
Consult Antibiotic Management Pharmacy has been consulted to manage selected antiobiotic: Vancomycin Type of Intervention Type of Consult: New start Suspected Infection Suspected Infection: Pneumonia Labs Labs: Sodium 141 mmol/L (136-145) 04/19/23 20:00 Potassium 4.4 mmol/L (3.5-5.1) 04/19/23 20:00 Chloride 107 mmol/L (98-107) 04/19/23 20:00 Carbon Dioxide 32.0 mmol/L (21.0-32.0) 04/19/23 20:00 Anion Gap 2 (5-15) L 04/19/23 20:00 BUN 15 mg/dL (7-18) 04/19/23 20:00 Creatinine 0.84 mg/dL (0.70-1.30) 04/19/23 20:00 Est GFR (MDRD) Af Amer 115 mL/min (>60) 04/19/23 20:00 Est GFR (MDRD) Non-Af 95 mL/min (>60) 04/19/23 20:00 BUN/Creatinine Ratio 17.9 RATIO (10-20) 04/19/23 20:00 Glucose 92 mg/dL (74-106) 04/19/23 20:00 Microbiology Microbiology: Microbiology 04/19/23 21:55 Urine Catheter - Catheter Legionella Antigen - Final 04/19/23 21:55 Urine Catheter - Catheter Streptococcus pneumoniae Antigen (M - Final Estimated Creatinine Clearance Estimated Creatinine Clearance: 63.5 Goal Trough Goal Trough: 15-20 mcg/mL Pharmacy Plan for Drug Dosing Pharmacy Plan for Drug Dosing: Pharmacy Service will continue to monitor and adjust dosing as required. Follow-Up Labs Follow-Up Labs: Trough: Vancomycin Date/Time Labs Ordered Labs to be done on [date and time ordered]: 04/21 @ 1574
[2023-04-20] MEDS: Budesonide Respules 0.5 MG/2 ML AMPUL.NEB. INHALATION ×2 (07:13→19:19)
[2023-04-20 07:17] LABS: Absolute Lymphocyte Count 0.94 X10^3/uL (0.83-4.51); Absolute Neutrophil Count 5.4 X10^3/uL (2.0-7.7); Basophil# 0.04 X10^3/uL; Basophil% 0.6 % (0-1); Eosinophils% 4.2 % (0-5); Hematocrit 38.4 % (40-54); Hemoglobin 12.5 g/dL (13.0-16.5); Lymphocyte # 0.94 X10^3/ul (0.83-4.51); Lymphocyte % 13.1 % (19-41); Mean Corp Hgb Conc 32.6 g/dL (32-36); Mean Corpuscular Hgb 30.9 pg (27.0-32.0); Mean Corpuscular Volume 94.8 fL (80-94); Monocyte# 0.48 X10^3/uL; Monocyte% 6.7 % (0-10); NRBC Flagged by Analyzer 0 % (0-5); Neutrophil # 5.38 X10^3/uL (2.7-7.7); Neutrophil % 74.6 % (47-70); Platelet Count 179 K/mm3 (150-450); RBC Distribution Width CV 12.9 % (11.6-14.6); RBC Distribution Width SD 44.7 fl (35.1-43.9); Red Blood Count 4.05 M/mm3 (4.6-6.2); White Blood Count 7.2 K/mm3 (4.4-11.0)
--- NOTE | 2023-04-20 07:36 | NURSING ---
Patient refusing to participate in [facility] this am
[2023-04-20 08:04] LABS: ALB/GLOB Ratio 0.7 RATIO (0.9-2.4); AST(SGOT) 14 U/L (15-37); Alanine Aminotransfer ALT/SGPT 7 U/L (16-61); Albumin, Serum 2.8 g/dL (3.2-5.0); Alkaline Phosphatase 100 U/L (45-117); Anion Gap 3 (5-15); BUN 13 mg/dL (7-18); BUN/Creat Ratio 16.4 RATIO (10-20); Calcium,Total 8.2 mg/dL (8.5-10.1); Chloride 109 mmol/L (98-107); Cholesterol 117 mg/dL (200); Creatinine, Serum 0.79 mg/dL (0.70-1.30); EST Glomerular Filtration Rate 101 mL/min (>60); Est Glom Filt Rate - Afr Amer 122 mL/min (>60); Estimated Creatinine Clearance 53.51 ml/min; Glucose 81 mg/dL (74-106); High Density Lipoprotein 39 mg/dL; Potassium 3.9 mmol/L (3.5-5.1); Protein, Total 6.8 g/dL (6.4-8.2); Sodium Level 139 mmol/L (136-145); T4 Free Direct 1.03 ng/dL (0.76-1.46); Thyroid Stim Hormone (TSH) 2.82 uIU/mL (0.358-3.74); Triglycerides 75 mg/dL; Very Low Density Lipoprotein 15 mg/dL (5-40)
--- NOTE | 2023-04-20 08:06 | PCM.PN.HOSP ---
Reason for Visit Reason for Visit: Diagnoses Cerebral infarction, unspecified (04/19/23) Subjective Subjective Awake. Does not speak. Objective Data Objective Data Vital Signs: Vital Signs Temp Pulse Resp BP Pulse Ox O2 Del Method 36.6 C 78 16 127/87 H 94 Room Air 04/20/23 07:31 04/20/23 07:31 04/20/23 07:31 04/20/23 07:31 04/20/23 07:31 04/20/23 07:31 Oxygen Delivery Method Room Air Weight: 60.2 kg Body Mass Index (BMI) 17.0 Intake & Output: Intake and Output for Last 24 Hours 04/18/23 04/19/23 04/20/23 23:59 23:59 23:59 Intake Total 360 / 360 Output Total 300 / 300 Balance 60 / 60 Lab / Micro Data 04/20/23 06:32 04/20/23 06:32 Labs: Laboratory Results - last 24 hr 04/19/23 20:00: WBC 5.7, RBC 4.17 L, Hgb 13.0, Hct 40.3, MCV 96.6 H, MCH 31.2, MCHC 32.3, RDW Std Deviation 46.9 H, RDW Coeff of Boni 13.1, Plt Count 193, MPV 10.9, Immature Gran % (Auto) 1.000 H, Neut % (Auto) 52.0, Lymph % (Auto) 32.6, Slope % (Auto) 8.7, Eos % (Auto) 5.2 H, Baso % (Auto) 0.5, Absolute Neuts (auto) 3.0, Absolute Lymphs (auto) 1.87, Nucleated RBC % 0, PT 14.0, INR 1.1, APTT 32.7, Sodium 141, Potassium 4.4, Chloride 107, Carbon Dioxide 32.0, Anion Gap 2 L, BUN 15, Creatinine 0.84, Estim Creat Clear Calc 63.92, Est GFR (MDRD) Af Amer 115, Est GFR (MDRD) Non-Af 95, BUN/Creatinine Ratio 17.9, Glucose 92, Calcium 8.7, Magnesium 2.5, Troponin I High Sens 4 04/19/23 21:55: Urine Color Yellow, Urine Clarity Sl. Cloudy, Urine pH 7.0, Ur Specific [place] 1.010, Urine Protein Negative, Urine Glucose (UA) Normal, Urine Ketones 5 H, Urine Occult Blood 10 H, Urine Nitrite Negative, Urine Bilirubin Negative, Urine Urobilinogen 4 H, Ur Leukocyte Esterase 500 H, Urine RBC 0-5 SEEN, Urine WBC 25-50 SEEN, Ur Squamous Epith Cells 0 SEEN, Urine Bacteria 2+, Urine Mucus 0 SEEN 04/20/23 00:56: MRSA (PCR) Negative 04/20/23 06:32: WBC 7.2, RBC 4.05 L, Hgb 12.5 L, Hct 38.4 L, MCV 94.8 H, MCH 30.9, MCHC 32.6, RDW Std Deviation 44.7 H, RDW Coeff of Boni 12.9, Plt Count 179, MPV 11.0, Immature Gran % (Auto) 0.800, Neut % (Auto) 74.6 H, Lymph % (Auto) 13.1 L, Slope % (Auto) 6.7, Eos % (Auto) 4.2, Baso % (Auto) 0.6, Absolute Neuts (auto) 5.4, Absolute Lymphs (auto) 0.94, Nucleated RBC % 0, Sodium 139, Potassium 3.9, Chloride 109 H, Carbon Dioxide 27.0, Anion Gap 3 L, BUN 13, Creatinine 0.79, Estim Creat Clear Calc 53.51, Est GFR (MDRD) Af Amer 122, Est GFR (MDRD) Non-Af 101, BUN/Creatinine Ratio 16.4, Glucose 81, Hemoglobin A1c 5.0, Calcium 8.2 L, Total Bilirubin 0.60, AST 14 L, ALT 7 L, Alkaline Phosphatase 100, Total Protein 6.8, Albumin 2.8 L, Globulin 4.0, Albumin/Globulin Ratio 0.7 L, Triglycerides 75, Cholesterol 117, LDL Cholesterol 63, VLDL Cholesterol 15, HDL Cholesterol 39 L, TSH 2.82, Free T4 1.03 Micro: Microbiology 04/19/23 21:55 Urine Catheter - Catheter Legionella Antigen - Final 04/19/23 21:55 Urine Catheter - Catheter Streptococcus pneumoniae Antigen (M - Final Radiography Diagnostic Testing: Radiology Impression Brain CT 04/19/23 20:10 IMPRESSION: No acute intracranial pathology. Chronic small vessel ischemic changes of the white matter and diffusely decreased parenchymal volume, likely age-related. No appreciable change compared to prior comparison exam. Electronically Signed: Gennaro Mayen DO at 20:22 EDT , ADDENDUM: 04/19/232040 IMPRESSION: No acute intracranial pathology. Chronic small vessel ischemic changes of the white matter and diffusely decreased parenchymal volume, likely age-related. No appreciable change compared to prior comparison exam. N.B. : The above Results were Read Back by Gennaro Mayen DO to Justin Whittington MD, and understanding confirmed on 04/19/2023 20:35:04 (ET). Electronically Signed: Gennaro Mayen DO at 20:22 EDT , Head/Neck CTA 04/19/23 20:10 IMPRESSION: No large vessel occlusion. Less than 25% luminal narrowing carotid bulbs and distal right common carotid artery. Tortuous bilateral vertebral arteries may represent chronic hypertension. 18 mm right thyroid lobe nodule with central areas of enhancement. Correlation with thyroid ultrasound is recommended. Several tiny foci of of gas supraclavicular left neck, overlying left subclavian vein. Correlate for vascular access attempt. Advanced centrilobular and paraseptal emphysema. Electronically Signed: Gennaro Mayen DO at 20:59 EDT , ADDENDUM: 04/19/232107 IMPRESSION: No large vessel occlusion. Less than 25% luminal narrowing carotid bulbs and distal right common carotid artery. Tortuous bilateral vertebral arteries may represent chronic hypertension. 18 mm right thyroid lobe nodule with central areas of enhancement. Correlation with thyroid ultrasound is recommended. Several tiny foci of of gas supraclavicular left neck, overlying left subclavian vein. Correlate for vascular access attempt. Advanced centrilobular and paraseptal emphysema. N.B. : The above Results were Read Back by Gennaro Mayen DO to Justin Whittington DO, and understanding confirmed on 04/19/2023 21:01:35 (ET). Electronically Signed: Gennaro GoodmanDO sherrill at 20:59 EDT , Chest X-Ray 04/19/23 21:00 IMPRESSION: 1. Developing consolidation right lower lobe. Electronically Signed: Gennaro Mayen DO at 21:36 EDT , Physical Exam Const Constitutional Narrative: Sitting up in bed. Wringing his hands. HEENT head/scalp atraumatic Resp normal respiratory effort, no retractions, no use of accessory muscles and clear to auscultation bilaterally Cardio regular rate, regular rhythm, S1 normal heart sound and S2 normal heart sound GI normal to inspection, nondistended, normoactive bowel sounds, soft to palpation, non-tender and non-distended Extremity normal to inspection Assessment & Plan Assessment/Plan (1) CVA (cerebral vascular accident): QUALIFIERS: CVA mechanism: unspecified Qualified Code(s): I63.9 - Cerebral infarction, unspecified PLAN: Suspected given decreased responsiveness then bizarre behavior (punching and kicking the air), severe aphasia and dysarthria. Cannot rule out acute delirium in patient with severe dementia Seizure another possibility. Data: Head CT: no acute process. Chronic small vessel ischemic changes. CTA head and neck: No LVO. <25% luminal narrowing carotid bulbs and distal right common carotid artery MRI pending Echo pending EEG pending (2) Pneumonia: QUALIFIERS: Laterality: right Lung location: lower lobe of lung Pneumonia type: due to unspecified organism Qualified Code(s): J18.9 - Pneumonia, unspecified organism PLAN: Pneumococcal v gram negative v aspiration Strep and legionella antigens negative Resp panel pending SCx uncollected vanc and pip/tazo pulm toilet (3) Bacteriuria: PLAN: May not be a UTI UA: 500 LE, 25-50 WBCs on abx for pneumonia (4) Thyroid nodule: PLAN: Incidental finding TSH and FT4 normal Follow up would be of low-yield given his severe dementia and poor performance status (5) Subcutaneous emphysema: QUALIFIERS: Encounter type: initial encounter Qualified Code(s): T79.7XXA - Traumatic subcutaneous emphysema, initial encounter PLAN: Noted on CT w several tiny foci of gas in supraclavicular left neck overlying left SC vein. Per Dr. Whittington's note, not manipulation in that area was performed. If worse, would not want any additional procedures/intervention. (6) Adult failure to thrive: PLAN: Due to severe dementia and poor performance status. 3rd admission just this month PT OT PLAN: Plan Chronic conditions: Chronic COPD: Not on any chronic oxygen, will maintain on ATC budesonide therapy however low threshold de-escalate if patient agitated with any of the therapies, PRN albuterol, HOB, IS parameters. Parkinson's disease: Holding home Sinemet regimen until oral intake safe, maintain on fall precautions, PT/OT/case management consultation for discharge planning. Anxiety and depression: Holding home low-dose Seroquel as well as escitalopram until oral intake safe. AAA: Most recent imaging 02/23/2021 CT abdomen and pelvis with a 4.5 cm infrarenal abdominal aortic aneurysm, encourage continued outpatient evaluation and monitoring. Former tobacco use: Quit 2016, encourage continued tobacco cessation. BPH: Holding home Flomax regimen until oral intake safe. Nonobstructive CAD: Chart reported history of remote 2011 cardiac catheterization with nonobstructive disease, given significantly elevated fall risk patient has not been on aspirin of note nor is patient on any hypertensive regimen or statin therapy, given #1 will initiate [place] ASA and reassess pending further evaluation as noted. DVT prophylaxis: Lovenox. CODE status: DNRCCA, no intubation Charges/Coding Visit Charges Inpatient E&M: 67956 Subs Hosp L2
[2023-04-20] MEDS: Enoxaparin 40 MG/0.4 ML Syringe SC (11:49)
[2023-04-20] MEDS: hydrALAZINE 20 MG/ML Vial 10 MG IV (13:49)
--- NOTE | 2023-04-20 16:30 | CASEMGMT ---
RN ARIADNA Face to Face with patient for initial transition planning/care coordination assessment. RN CM introduced self and role at [facility]. Patient lying in bed, alert and confused, at bedside. willing to participate in assessment and is able to answer all questions appropriately. Care providers, pharmacy, and demographics verified. unsure of disposition at discharge, will monitor for possible SNF vs HHC. states she has no further needs or concerns at this time. CM to follow for discharge planning needs that may arise. PCP: Hi Specialists: Neurologist Marcia Bates Preferred Pharmacy: [facility] Prescription Benefit: none Living Will/HPOA: yes, Jennifer Rhodes LNOK: Living Arrangements: Patient lives with in a 2 story home with bed and bath on first floor, no steps to enter. assists patient with ADLs Transportation: DME/HHC: Patient has shower chair, raised toilet, cane, walker, wheelchair, lift chair at home. Patient has previously been to [facility] in the past. No previous HHC Disposition Plan: TBD, anticipate HHC vs SNF pending course of treatment and progress with therapy. Cristina BERRYN, RN, CM
[2023-04-21 02:30] VITALS: BP 148/93; PULSE 74; PULSE 76; RESP 18; TEMP 37.2; O2SAT 96
[2023-04-21] MEDS: 0.9% Saline Lock 10 ML Syringe IV (05:25)
[2023-04-21] MEDS: 0.9% Normal Saline 1,000 ML 100 ML IV (05:26)
[2023-04-21 06:00] VITALS: BMI 16.2
[2023-04-21 07:03] VITALS: PULSE 69; RESP 16; O2SAT 96
[2023-04-21] MEDS: Budesonide Respules 0.5 MG/2 ML AMPUL.NEB. INHALATION (07:03)
[2023-04-21 07:53] VITALS: BP 148/98; PULSE 88; RESP 16; TEMP 36.5; O2SAT 98
--- NOTE | 2023-04-21 08:03 | PN.HOSP_ITS ---
Reason for Visit Reason for Visit: Diagnoses Nontoxic single thyroid nodule (04/19/23) Cerebral infarction, unspecified (04/19/23) Pneumonia, unspecified organism (04/19/23) Adult failure to thrive (04/19/23) Bacteriuria (04/19/23) Traumatic subcutaneous emphysema, initial encounter (04/19/23) Subjective Subjective Denies complaints. Objective Data Objective Data Vital Signs: Vital Signs Temp Pulse Resp BP Pulse Ox O2 Del Method 36.5 C L 88 16 148/98 H 98 Room Air 04/21/23 07:53 04/21/23 07:53 04/21/23 07:53 04/21/23 07:53 04/21/23 07:53 04/21/23 07:53 Oxygen Delivery Method Room Air Weight: 57.5 kg Body Mass Index (BMI) 16.2 Intake & Output: Intake and Output for Last 24 Hours 04/19/23 04/20/23 04/21/23 23:59 23:59 23:59 Intake Total 3680 / 3680 827.71 / 827.71 Output Total 1825 / 1825 700 / 700 Balance 1855 / 1855 127.71 / 127.71 Lab / Micro Data 04/20/23 06:32 04/20/23 06:32 Labs: Laboratory Results - last 24 hr 04/20/23 06:32: Sodium 139, Potassium 3.9, Chloride 109 H, Carbon Dioxide 27.0, Anion Gap 3 L, BUN 13, Creatinine 0.79, Estim Creat Clear Calc 53.51, Est GFR (MDRD) Af Amer 122, Est GFR (MDRD) Non-Af 101, BUN/Creatinine Ratio 16.4, Glucose 81, Calcium 8.2 L, Total Bilirubin 0.60, AST 14 L, ALT 7 L, Alkaline Phosphatase 100, Total Protein 6.8, Albumin 2.8 L, Globulin 4.0, Albumin/[place] bulin Ratio 0.7 L, Triglycerides 75, Cholesterol 117, LDL Cholesterol 63, VLDL Cholesterol 15, HDL Cholesterol 39 L, TSH 2.82, Free T4 1.03 Micro: Microbiology 04/20/23 03:34 Mucosa - Nose Respiratory Panel (PCR) - Final 04/19/23 21:55 Urine Catheter - Catheter Legionella Antigen - Final 04/19/23 21:55 Urine Catheter - Catheter Streptococcus pneumoniae Antigen (M - Final Radiography Diagnostic Testing: Radiology Impression Brain MRI 04/19/23 23:29 IMPRESSION: Involutional changes of the brain, as described above. No acute infarct. Electronically Signed: Zuhair Bonner MD at 12:20 EDT , Echocardiogram 04/19/23 23:29 Interpretation Summary The left ventricular ejection fraction is 60 %. Trivial tricuspid valve insufficiency. Right ventricular systolic pressure estimated to be 21 mmHg. The study was technically difficult. Ordering Physician: Delma Nunez Referring Physician: Drew Do M.D. Performed By: Robina Frazier RDCS Physical Exam Const alert and no apparent distress Resp normal respiratory effort, no retractions, no use of accessory muscles and clear to auscultation bilaterally Cardio regular rate, regular rhythm, S1 normal heart sound and S2 normal heart sound GI normal to inspection, nondistended, normoactive bowel sounds and soft to palpation Extremity normal to inspection Neuro Sensorium / Orientation: awake, alert, oriented to person and oriented to place Assessment & Plan Assessment/Plan (1) Encephalopathy: PLAN: CVA ruled out. Seizure of low likelihood. Due to severe, advanced dementia with pneumonia Seizure another possibility. Data: * Head CT: no acute process. Chronic small vessel ischemic changes. * CTA head and neck: No LVO. <25% luminal narrowing carotid bulbs and distal right common carotid artery * MRI showed involutional changes. No CVA * Echo EF 60%. * EEG showing diffuse encephalopathy No additional work up. (2) Pneumonia: QUALIFIERS: Laterality: right Lung location: lower lobe of lung Pneumonia type: due to unspecified organism Qualified Code(s): J18.9 - Pneumonia, unspecified organism PLAN: Pneumococcal v gram negative v aspiration Strep and legionella antigens negative Resp panel pending SCx uncollected vanc and pip/tazo. Deescalate ABX to amp/SB and observe pulm toilet (3) Bacteriuria: PLAN: May not be a UTI UA: 500 LE, 25-50 WBCs on abx for pneumonia (4) Thyroid nodule: PLAN: Incidental finding TSH and FT4 normal Follow up would be of low-yield given his severe dementia and poor performance status (5) Subcutaneous emphysema: QUALIFIERS: Encounter type: initial encounter Qualified Code(s): T79.7XXA - Traumatic subcutaneous emphysema, initial encounter PLAN: Noted on CT w several tiny foci of gas in supraclavicular left neck overlying left SC vein. Per Dr. Whittington's note, not manipulation in that area was performed. If worse, would not want any additional procedures/intervention. (6) Adult failure to thrive: PLAN: Due to severe dementia and poor performance status. 3rd admission just this month PT OT PLAN: Plan Chronic conditions: * Chronic COPD: Not on any chronic oxygen, will maintain on ATC budesonide therapy however low threshold de-escalate if patient agitated with any of the therapies, PRN albuterol, HOB, IS parameters. * Parkinson's disease: Holding home Sinemet regimen until oral intake safe, maintain on fall precautions, PT/OT/case management consultation for discharge planning. * Anxiety and depression: Holding home low-dose Seroquel as well as escitalopram until oral intake safe. * AAA: Most recent imaging 02/23/2021 CT abdomen and pelvis with a 4.5 cm infrarenal abdominal aortic aneurysm, encourage continued outpatient evaluation and monitoring. * Former tobacco use: Quit 2016, encourage continued tobacco cessation. * BPH: Holding home Flomax regimen until oral intake safe. * Nonobstructive CAD: Chart reported history of remote 2011 cardiac catheterization with nonobstructive disease, given significantly elevated fall risk patient has not been on aspirin of note nor is patient on any hypertensive regimen or statin therapy, given #1 will initiate [place] ASA and reassess pending further evaluation as noted. DVT prophylaxis: Lovenox. CODE status: DNRCCA, no intubation 04/21: DW patient's at bedside. Updated on negative work up. She said she wasn't concerned about a stroke, but said EMS was. Plan is for pt to go to SNF. Charges/Coding Visit Charges Inpatient E&M: 48173 Subs Hosp L2
[2023-04-21] MEDS: Aspirin 300 MG Suppository RC (09:49)
[2023-04-21] MEDS: Menthol/Lanolin/Calamine/Znox 113 GM Tube 1 APPLIC TOPICAL ×2 (09:49→22:01)
[2023-04-21] MEDS: Enoxaparin 40 MG/0.4 ML Syringe SC (09:50)
[2023-04-21 10:15] VITALS: BMI 16.2
[2023-04-21 13:50] VITALS: BP 147/103; PULSE 93; RESP 16; TEMP 37; O2SAT 97
[2023-04-21] MEDS: Acetaminophen 500 MG Tablet 1000 MG PO (14:30)
[2023-04-21] MEDS: Carbidopa/Levodopa 25/100 Tablet PO ×2 (14:31→19:10)
[2023-04-21 20:40] VITALS: BP 127/77; PULSE 80; RESP 16; RESP 18; TEMP 36.6; O2SAT 95
[2023-04-21 22:43] VITALS: BMI 16.2
[2023-04-22 02:45] VITALS: BP 127/77; BP 155/90; PULSE 75; RESP 16; RESP 18; TEMP 36.6; TEMP 37.1; O2SAT 95
[2023-04-22 06:00] VITALS: BMI 16.0
--- NOTE | 2023-04-22 07:46 | PN.HOSP_ITS ---
Reason for Visit Reason for Visit: Diagnoses Nontoxic single thyroid nodule (04/19/23) Encephalopathy, unspecified (04/19/23) Cerebral infarction, unspecified (04/19/23) Pneumonia, unspecified organism (04/19/23) Adult failure to thrive (04/19/23) Bacteriuria (04/19/23) Traumatic subcutaneous emphysema, initial encounter (04/19/23) Subjective Subjective Confused. Objective Data Objective Data Vital Signs: Vital Signs Temp Pulse Resp BP Pulse Ox O2 Del Method 37.1 C 75 18 155/90 H 95 Room Air 04/22/23 02:45 04/22/23 02:45 04/22/23 02:45 04/22/23 02:45 04/22/23 02:45 04/22/23 02:45 Oxygen Delivery Method Room Air Weight: 56.7 kg Body Mass Index (BMI) 16.0 Intake & Output: Intake and Output for Last 24 Hours 04/20/23 04/21/23 04/22/23 23:59 23:59 23:59 Intake Total 3680 / 3680 2340.04 / 2340.04 224 / 224 Output Total 1825 / 1825 2050 / 2450 850 / 850 Balance 1855 / 1855 290.04 / -109.96 -626 / -626 Lab / Micro Data 04/20/23 06:32 04/20/23 06:32 Micro: Microbiology 04/20/23 03:34 Mucosa - Nose Respiratory Panel (PCR) - Final 04/19/23 21:55 Urine Catheter - Catheter Legionella Antigen - Final 04/19/23 21:55 Urine Catheter - Catheter Streptococcus pneumoniae Antigen (M - Final Physical Exam Const no apparent distress HEENT head/scalp atraumatic and moist oral mucous membranes Resp normal respiratory effort, no retractions, no use of accessory muscles and clear to auscultation bilaterally Cardio regular rate, regular rhythm, S1 normal heart sound and S2 normal heart sound GI normal to inspection, nondistended, normoactive bowel sounds, soft to palpation and non-tender Assessment & Plan Assessment/Plan (1) Encephalopathy: PLAN: CVA ruled out. Seizure of low likelihood. Due to severe, advanced dementia with pneumonia Seizure another possibility. Data: * Head CT: no acute process. Chronic small vessel ischemic changes. * CTA head and neck: No LVO. <25% luminal narrowing carotid bulbs and distal right common carotid artery * MRI showed involutional changes. No CVA * Echo EF 60%. * EEG showing diffuse encephalopathy No additional work up. (2) Pneumonia: QUALIFIERS: Laterality: right Lung location: lower lobe of lung Pneumonia type: due to unspecified organism Qualified Code(s): J18.9 - Pneumonia, unspecified organism PLAN: Pneumococcal v gram negative v aspiration Strep and legionella antigens negative Resp panel pending SCx uncollected vanc and pip/tazo. Deescalate ABX to amp/SB and observe pulm toilet (3) Bacteriuria: PLAN: May not be a UTI UA: 500 LE, 25-50 WBCs on abx for pneumonia (4) Thyroid nodule: PLAN: Incidental finding TSH and FT4 normal Follow up would be of low-yield given his severe dementia and poor performance status (5) Subcutaneous emphysema: QUALIFIERS: Encounter type: initial encounter Qualified Code(s): T79.7XXA - Traumatic subcutaneous emphysema, initial encounter PLAN: Noted on CT w several tiny foci of gas in supraclavicular left neck overl pineda left SC vein. Per Dr. Whittington's note, not manipulation in that area was performed. If worse, w bo would not want any additional procedures/intervention. (6) Adult failure to thrive: PLAN: Due to severe dementia and poor performance status. 3rd admission just this month PT OT PLAN: Plan Chronic conditions: * Chronic COPD: Not on any chronic oxygen, will maintain on ATC budesonide therapy however low threshold de-escalate if patient agitated with any of the therapies, PRN albuterol, HOB, IS parameters. * Parkinson's disease: Holding home Sinemet regimen until oral intake safe, maintain on fall precautions, PT/OT/case management consultation for discharge planning. * Anxiety and depression: Holding home low-dose Seroquel as well as escitalopram until oral intake safe. * AAA: Most recent imaging 02/23/2021 CT abdomen and pelvis with a 4.5 cm infrarenal abdominal aortic aneurysm, encourage continued outpatient evaluation and monitoring. * Former tobacco use: Quit 2016, encourage continued tobacco cessation. * BPH: Holding home Flomax regimen until oral intake safe. * Nonobstructive CAD: Chart reported history of remote 2011 cardiac catheterization with nonobstructive disease, given significantly elevated fall risk patient has not been on aspirin of note nor is patient on any hypertensive regimen or statin therapy, given #1 will initiate [place] ASA and reassess pending further evaluation as noted. DVT prophylaxis: Lovenox. CODE status: DNRCCA, no intubation Disposition: to SNF pending authorization. 04/21: DW patient's at bedside. Updated on negative work up. She said she wasn't concerned about a stroke, but said EMS was. Plan is for pt to go to SNF. Charges/Coding Visit Charges Inpatient E&M: 05664 Subs Hosp L2
[2023-04-22] MEDS: Carbidopa/Levodopa 25/100 Tablet PO ×2 (09:09→14:10)
[2023-04-22] MEDS: Enoxaparin 40 MG/0.4 ML Syringe SC (09:09)
[2023-04-22] MEDS: CARBIDOPA/LEVODOPA CR 50/200 Tablet PO (09:09)
[2023-04-22 09:16] VITALS: BP 132/90; PULSE 86; RESP 14; TEMP 36.8; O2SAT 97
--- NOTE | 2023-04-22 10:04 | CASEMGMT ---
Discharge Planning Referral sent to [facility]. Berta Sauer, Discharge Planning Asst.
--- NOTE | 2023-04-22 10:14 | CASEMGMT ---
SANDAR spoke with patient's via phone. SANDRA explained [facility]pc facility is being recommended. SANDRA explained days 1-20 would be covered at 100% and days 21-100 there is a daily co-pay which his secondary will pay all or part of the co-pay. Patient's asked that a referral be sent to [facility] and if they cannot take him then she said he will go to [facility]. SANDRA asked Berta d/c city planning engineer to please send a referral to [facility]. Plan: [facility] vs [facility] pending accepting facility. Samara Mcadams [employer]CEE
--- NOTE | 2023-04-22 13:58 | TREXTCAR_ITS ---
Diet Diet Order/Speech Therapy: 04/21/23 09:07 Diet: Regular - General Food consistency:: Pureed Liquid Consistency:: Regular/Thin Is pt able to select menu?: No Diet Comments: puree and thin by 1/2 tsp spoon feed, total feed when alert only, no straws Routine Orders/Code Status Code Status: DNRCC-A (no intubation. ) Wound(s) forehead: Wound Type: Abrasion right arm: Wound Type: Abrasion right hand: Wound Type: Abrasion nitish knees: Wound Type: Abrasion left samuel: Wound Type: Abrasion Therapies Weight Bearing: Full weight bearing Physical Therapy: Eval and Treat Occupational Therapy: Eval and Treat Speech Therapy: Eval and Treat Problem/Diagnosis (1) Encephalopathy: Status: Acute Code(s): G93.40 - Encephalopathy, unspecified Plan: CVA ruled out. Seizure of low likelihood. Due to severe, advanced dementia with pneumonia Seizure another possibility. Data: * Head CT: no acute process. Chronic small vessel ischemic changes. * CTA head and neck: No LVO. <25% luminal narrowing carotid bulbs and distal right common carotid artery * MRI showed involutional changes. No CVA * Echo EF 60%. * EEG showing diffuse encephalopathy No additional work up. (2) Pneumonia: Status: Acute Code(s): J18.9 - Pneumonia, unspecified organism Plan: Pneumococcal v gram negative v aspiration Strep and legionella antigens negative Resp panel pending SCx uncollected vanc and pip/tazo. Deescalate ABX to amp/SB and observe. Augmentin on discharge. pulm toilet (3) Bacteriuria: Status: Acute Code(s): R82.71 - Bacteriuria Plan: May not be a UTI UA: 500 LE, 25-50 WBCs on abx for pneumonia (4) Thyroid nodule: Status: Acute Code(s): E04.1 - Nontoxic single thyroid nodule Plan: Incidental finding TSH and FT4 normal Follow up would be of low-yield given his severe dementia and poor performance status (5) Subcutaneous emphysema: Status: Acute Code(s): T79.7XXA - Traumatic subcutaneous emphysema, initial encounter Plan: Noted on CT w several tiny foci of gas in supraclavicular left neck overlying left SC vein. Per Dr. Whittington's note, not manipulation in that area was performed. If worse, would not want any additional procedures/intervention. (6) Adult failure to thrive: Status: Acute Code(s): R62.7 - Adult failure to thrive Plan: Due to severe dementia and poor performance status. 3rd admission just this month PT OT Plan Chronic conditions: * Chronic COPD: Not on any chronic oxygen, will maintain on ATC budesonide therapy however low threshold de-escalate if patient agitated with any of the therapies, PRN albuterol, HOB, IS parameters. * Parkinson's disease: Holding home Sinemet regimen until oral intake safe, maintain on fall precautions, PT/OT/case management consultation for discharge planning. * Anxiety and depression: Holding home low-dose Seroquel as well as escitalopram until oral intake safe. * AAA: Most recent imaging 02/23/2021 CT abdomen and pelvis with a 4.5 cm infrarenal abdominal aortic aneurysm, encourage continued outpatient evaluation and monitoring. * Former tobacco use: Quit 2015, encourage continued tobacco cessation. * BPH: Holding home Flomax regimen until oral intake safe. * Nonobstructive CAD: Chart reported history of remote 2011 cardiac catheterization with nonobstructive disease, given significantly elevated fall risk patient has not been on aspirin of note nor is patient on any hypertensive regimen or statin therapy, given #1 will initiate [facility] ASA and reassess pending further evaluation as noted. DVT prophylaxis: Lovenox. CODE status: DNRCCA, no intubation Disposition: to SNF pending authorization. 04/21: DW patient's at bedside. Updated on negative work up. She said she wasn't concerned about a stroke, but said EMS was. Plan is for pt to go to SNF. Allergies/Procedures Done in Hospital Allergies pregabalin [From Lyrica] Adverse Reaction (Verified 04/06/23 15:52) hallucinations Procedures: 2-D Echocardiogram Type of Care/Length of Stay Estimated LOS: Convalescent Care Less Than 30 days Type of Care Needed: Skilled Rehab Potential: Fair Prognosis: Fair Additional Orders/Day of Discharge Day of Discharge: 04/22/23 Dietary and Speech Recommendations Dietitian Recommendations/Changes: ADAT to Regular diet with texture/consistency per M[employer]ER when medically able to optimize oral intakes. Recommend 120mL EPHP TID with medpass once diet has advanced to provide supplemental energy. Discharge Plan Admission Admit Date/Time: 04/19/23 21:58 Primary Reason for Your Visit: pneumonia. encephalopathy. Attending Provider: Thanh hRoades Primary Care Provider: Casper Do Consulting Providers: Delma Nunez Discharge Orders/Prescriptions Prescriptions: New amoxicillin-pot clavulanate 875-125 mg tablet 1 tab PO BID Qty: 8 0RF Continued (DME) walker Qty: 1 0RF Rx Instructions: Walker with wheels, brakes, and seat carbidopa-levodopa [Sinemet] 25-100 mg Tablet 1 tab PO TIDCM@0900,1300,1800 carbidopa-levodopa 50-200 mg Tablet Extended Release 1 tab PO 0900,2200 polyethylene glycol 3350 [Miralax] 17 gram/dose Powder 17 g PO PRN sennosides-docusate sodium [Senna Plus] 8.6-50 mg Tablet 2 tab-cap PO BID PRN menthol-zinc oxide [Calmoseptine] 0.44-20.6 % Ointment 1 applic TOPICAL BID Rx Instructions: apply to groin Ensure Plus High Protein 0.08 gram-1.5 kcal/mL Liquid 120 ml PO 4X/DAY acetaminophen 500 mg tablet 1,000 mg PO Q8H ipratropium-albuterol 0.5 mg-3 mg(2.5 mg base)/3 mL Solution For Nebulization 3 ml inhalation Q6HWA.RT PRN (Reason: SOB) Qty: 0 0RF quetiapine 25 mg Tablet 25 mg PO BID Qty: 60 0RF escitalopram oxalate 10 mg tablet 10 mg PO QHS Qty: 90 0RF tamsulosin 0.4 mg capsule 0.4 mg PO QHS 30 Days Qty: 30 3RF Referrals / Follow Up: Casper Do DO [Primary Care Provider] - Within 2 Weeks Disposition Disposition (needs filled in before D/C Order can be placed): [facility] (2) Pneumonia Qualifiers: Pneumonia type: due to unspecified organism Laterality: right Lung location: lower lobe of lung Qualified Code(s): J18.9 - Pneumonia, unspecified organism (5) Subcutaneous emphysema Qualifiers: Encounter type: initial encounter Qualified Code(s): T79.7XXA - Traumatic subcutaneous emphysema, initial encounter
--- NOTE | 2023-04-22 14:03 | CASEMGMT ---
Addendum entered by Samara Mcadams 04/22/23 14:22: SW called patient's and let her know [facility] accepted patient and he will be discharged today. Patient's asked SW to notify her of picker and sorter load and unload time. Transport was set up for 4p. SW called patient's and let her know this information. Plan: d/c to [facility] under skilled level of care on a convalescent stay. Physicians will transport patient via cot. Samara BENOIT Original Note: [facility] accepted patient. SW notified physician. Plan: [facility] under skilled level of care. Samara BENOIT
--- NOTE | 2023-04-22 14:05 | DS.PCM_ITS ---
Providers Date of Admission: 04/19/23 Primary Care Physician: Dr. Casper Do, DO Reason For Visit: CVA, RLL PNA Diagnosis Discharge Diagnosis (1) Encephalopathy: Status: Acute Code(s): G93.40 - Encephalopathy, unspecified Plan: CVA ruled out. Seizure of low likelihood. Due to severe, advanced dementia with pneumonia Seizure another possibility. Data: * Head CT: no acute process. Chronic small vessel ischemic changes. * CTA head and neck: No LVO. <25% luminal narrowing carotid bulbs and distal right common carotid artery * MRI showed involutional changes. No CVA * Echo EF 60%. * EEG showing diffuse encephalopathy No additional work up. (2) Pneumonia: Status: Acute Code(s): J18.9 - Pneumonia, unspecified organism Qualifiers: Pneumonia type: due to unspecified organism Laterality: right Lung location: lower lobe of lung Qualified Code(s): J18.9 - Pneumonia, unspecified organism Plan: Pneumococcal v gram negative v aspiration Strep and legionella antigens negative Resp panel pending SCx uncollected vanc and pip/tazo. Deescalate ABX to amp/SB and observe. Augmentin on discharge. pulm toilet (3) Bacteriuria: Status: Acute Code(s): R82.71 - Bacteriuria Plan: May not be a UTI UA: 500 LE, 25-50 WBCs on abx for pneumonia (4) Thyroid nodule: Status: Acute Code(s): E04.1 - Nontoxic single thyroid nodule Plan: Incidental finding TSH and FT4 normal Follow up would be of low-yield given his severe dementia and poor performance status (5) Subcutaneous emphysema: Status: Acute Code(s): T79.7XXA - Traumatic subcutaneous emphysema, initial encounter Qualifiers: Encounter type: initial encounter Qualified Code(s): T79.7XXA - Traumatic subcutaneous emphysema, initial encounter Plan: Noted on CT w several tiny foci of gas in supraclavicular left neck overlying left SC vein. Per Dr. Whittington's note, not manipulation in that area was performed. If worse, would not want any additional procedures/intervention. (6) Adult failure to thrive: Status: Acute Code(s): R62.7 - Adult failure to thrive Plan: Due to severe dementia and poor performance status. 3rd admission just this month PT OT Plan Chronic conditions: * Chronic COPD: Not on any chronic oxygen, will maintain on ATC budesonide therapy however low threshold de-escalate if patient agitated with any of the therapies, PRN albuterol, HOB, IS parameters. * Parkinson's disease: Holding home Sinemet regimen until oral intake safe, maintain on fall precautions, PT/OT/case management consultation for discharge planning. * Anxiety and depression: Holding home low-dose Seroquel as well as escitalopram until oral intake safe. * AAA: Most recent imaging 02/23/2021 CT abdomen and pelvis with a 4.5 cm infrarenal abdominal aortic aneurysm, encourage continued outpatient evaluation and monitoring. * Former tobacco use: Quit 2016, encourage continued tobacco cessation. * BPH: Holding home Flomax regimen until oral intake safe. * Nonobstructive CAD: Chart reported history of remote 2011 cardiac catheterization with nonobstructive disease, given significantly elevated fall risk patient has not been on aspirin of note nor is patient on any hypert ensive regimen or statin therapy, given #1 will initiate [place] ASA and reassess pending further evaluation as noted. DVT prophylaxis: Lovenox. CODE status: DNRCCA, no intubation Disposition: to SNF pending authorization. 04/21: DW patient's at bedside. Updated on negative work up. She said she wasn't concerned about a stroke, but said EMS was. Plan is for pt to go to SNF. Medications at Discharge Home Medications walker #1 ea 04/14/20 carbidopa 25 mg-levodopa 100 mg tablet (Sinemet) 1 tab PO TIDCM@0900,1300,1800 parkinsons 02/24/21 carbidopa ER 50 mg-levodopa 200 mg tablet,extended release 1 tab PO 0900,2200 parkinsons 12/07/21 polyethylene glycol 3350 17 gram/dose oral powder (Miralax) 17 g PO PRN CONSTIPATION 07/25/22 acetaminophen 500 mg tablet 1,000 mg PO Q8H PAIN 09/18/22 food supplemt, lactose-reduced 0.08 gram-1.5 kcal/mL oral liquid (Ensure Plus High Protein) 120 ml PO 4X/DAY SUPPLEMENT 09/18/22 menthol 0.44 %-zinc oxide 20.6 % topical ointment (Calmoseptine) 1 applic topical BID rash 12/13/22 sennosides 8.6 mg-docusate sodium 50 mg tablet (Senna Plus) 2 tab-cap PO BID PRN constipa 09/18/22 ipratropium 0.5 mg-albuterol 3 mg (2.5 mg base)/3 mL nebulization soln 3 ml inhalation Q6HWA.RT PRN SOB #0 mL 09/21/22 escitalopram oxalate 10 mg tablet 10 mg PO QHS DEPRESSION #90 tabs 02/01/23 tamsulosin 0.4 mg capsule 0.4 mg PO QHS BPH 30 days #30 caps 02/26/23 quetiapine 25 mg tablet 25 mg PO BID agitation #60 tabs 04/07/23 amoxicillin 875 mg-potassium clavulanate 125 mg tablet 1 tab PO BID #8 tabs 04/22/23 Hospital Course Operations None Procedures 2-D Echocardiogram Summary of Care Provided Minutes Spent on Discharge: 32 Weight / BMI Weight Weight: 56.7 kg Body Mass Index (BMI) 16.0 ABG / Lab / Microbiology Data 04/20/23 06:32 04/20/23 06:32 Microbiology: Microbiology 04/20/23 03:34 Mucosa - Nose Respiratory Panel (PCR) - Final 04/19/23 21:55 Urine Catheter - Catheter Legionella Antigen - Final 04/19/23 21:55 Urine Catheter - Catheter Streptococcus pneumoniae Antigen (M - Final Meaningful Use Info Meaningful Use Diagnoses (Choose all that apply): None applicable Discharge Plan Admission Admit Date/Time: 04/19/23 21:58 Primary Reason for Your Visit: pneumonia. encephalopathy. Attending Provider: Thanh Rhoades Primary Care Provider: Casper Do Consulting Providers: Delma Nunez Discharge Orders/Prescriptions Prescriptions: New amoxicillin-pot clavulanate 875-125 mg tablet 1 tab PO BID Qty: 8 0RF Continued (DME) walker Qty: 1 0RF Rx Instructions: Walker with wheels, brakes, and seat carbidopa-levodopa [Sinemet] 25-100 mg Tablet 1 tab PO TIDCM@0900,1300,1800 carbidopa-levodopa 50-200 mg Tablet Extended Release 1 tab PO 0900,2200 polyethylene glycol 3350 [Miralax] 17 gram/dose Powder 17 g PO PRN sennosides-docusate sodium [Senna Plus] 8.6-50 mg Tablet 2 tab-cap PO BID PRN menthol-zinc oxide [Calmoseptine] 0.44-20.6 % Ointment 1 applic TOPICAL BID Rx Instructions: apply to groin Ensure Plus High Protein 0.08 gram-1.5 kcal/mL Liquid 120 ml PO 4X/DAY acetaminophen 500 mg tablet 1,000 mg PO Q8H ipratropium-albuterol 0.5 mg-3 mg(2.5 mg base)/3 mL Solution For Nebulization 3 ml inhalation Q6HWA.RT PRN (Reason: SOB) Qty: 0 0RF quetiapine 25 mg Tablet 25 mg PO BID Qty: 60 0RF escitalopram oxalate 10 mg tablet 10 mg PO QHS Qty: 90 0RF tamsulosin 0.4 mg capsule 0.4 mg PO QHS 30 Days Qty: 30 3RF Referrals / Follow Up: Casper Do DO [Primary Care Provider] - Within 2 Weeks Disposition Disposition (needs filled in before D/C Order can be placed): [facility] Charges/Coding Visit Charges Inpatient E&M: 42836 Disch Hosp >30min
[2023-04-22] MEDS: Acetaminophen 500 MG Tablet 1000 MG PO (14:10)
--- NOTE | 2023-04-22 14:15 | PHA.DC.MR.R ---
Pharmacy [place] Med Reconciliation Pharmacy Service has performed discharge medication reconciliation for this patient. The patient's discharge medication list was reviewed for discrepancies and discrepancies were resolved. Medications at Discharge Home Medications walker #1 ea 04/14/20 carbidopa 25 mg-levodopa 100 mg tablet (Sinemet) 1 tab PO TIDCM@0900,1300,1800 parkinsons 02/24/21 carbidopa ER 50 mg-levodopa 200 mg tablet,extended release 1 tab PO 0900,2200 parkinsons 12/07/21 polyethylene glycol 3350 17 gram/dose oral powder (Miralax) 17 g PO PRN CONSTIPATION 07/25/22 acetaminophen 500 mg tablet 1,000 mg PO Q8H PAIN 09/18/22 food supplemt, lactose-reduced 0.08 gram-1.5 kcal/mL oral liquid (Ensure Plus High Protein) 120 ml PO 4X/DAY SUPPLEMENT 09/18/22 menthol 0.44 %-zinc oxide 20.6 % topical ointment (Calmoseptine) 1 applic topical BID rash 09/18/22 sennosides 8.6 mg-docusate sodium 50 mg tablet (Senna Plus) 2 tab-cap PO BID PRN constipa 09/18/22 ipratropium 0.5 mg-albuterol 3 mg (2.5 mg base)/3 mL nebulization soln 3 ml inhalation Q6HWA.RT PRN SOB #0 mL 09/21/22 escitalopram oxalate 10 mg tablet 10 mg PO QHS DEPRESSION #90 tabs 02/01/23 tamsulosin 0.4 mg capsule 0.4 mg PO QHS BPH 30 days #30 caps 02/26/23 quetiapine 25 mg tablet 25 mg PO BID agitation #60 tabs 04/07/23 amoxicillin 875 mg-potassium clavulanate 125 mg tablet 1 tab PO BID #8 tabs 04/22/23
--- NOTE | 2023-04-22 14:22 | CASEMGMT ---
Discharge Planning Discharge orders, signed med list and transport time sent to [facility] via [facility]. [facility] will transport patient by cot at 4p. Nursing and SW notified. Berta Sauer, Discharge Planning Asst.
[2023-04-22 15:00] VITALS: BP 91/80; PULSE 85; RESP 16; TEMP 36.3; O2SAT 97
--- NOTE | 2023-04-22 15:59 | NURSING ---
Report called to Matti Siu RN. This nurse forgot to get her name. 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
== END 2023-04-22 16:06 | disposition skilled nursing facility (03) | DRG 194 ==
LOC: ED 21:50 → PCU 22:07
PROVIDERS: Admitting Provider Family Medicine; Emergency Provider Student in an Organized Health Care Education/Training Program; PCP Family Medicine
DX: J18.9 Pneumonia, unspecified organism (principal); F02.811 Dementia in other diseases classified elsewhere, unspecified severity, with agitation; G93.40 Encephalopathy, unspecified; T79.7XXA Traumatic subcutaneous emphysema, initial encounter; J43.2 Centrilobular emphysema; G30.9 Alzheimer's disease, unspecified; G20 Parkinson's disease; I77.1 Stricture of artery; I71.43 Infrarenal abdominal aortic aneurysm, without rupture; F02.C0 Dementia in other diseases classified elsewhere, severe, without behavioral disturbance, psychotic disturbance, mood disturbance, and anxiety; K58.9 Irritable bowel syndrome, unspecified; E04.1 Nontoxic single thyroid nodule; I25.10 Atherosclerotic heart disease of native coronary artery without angina pectoris; F32.A Depression, unspecified; R82.71 Bacteriuria; G89.29 Other chronic pain; R62.7 Adult failure to thrive; Z66 Do not resuscitate; Z87.891 Personal history of nicotine dependence; R29.707 NIHSS score 7; N40.0 Benign prostatic hyperplasia without lower urinary tract symptoms
CPT/HCPCS: 36415; 70450; 70496; 70498; 70551; 71045; 80048; 80053; 80061; 81001; 83036; 83735; 84439; 84443; 84484; 85025; 85610; 85730; 87426; 87449; 87633; 87641; 92526; 92610; 93005; 93306; 94640; 94762; 95819; 97110; 97116; 97163; 97166; 97530; 97535; 99285; J7030; J7050; Q9957; Q9967; A4216; J0295

== ENCOUNTER 2023-06-08 10:23 | Inpatient (IN) | payer MEDICARE, OTHER, SELFPAY ==
[2023-06-08 10:25] VITALS: BP 89/55; PULSE 100; RESP 16; TEMP 36.2; O2SAT 97
--- NOTE | 2023-06-08 10:49 | CT_ITS ---
STUDY: CT PELVIS WITHOUT CONTRAST REASON FOR EXAM: Male, 77 years old. Buttock wound RADIATION DOSAGE (If Supplied By Facility): CTDIvol = ( 21.68 ) mGy, DLP = ( 816.31 ) mGycm TECHNIQUE: Transaxial imaging of the pelvis was performed without oral contrast, and without intravenous administration of contrast material. Multiplanar coronal and sagittal images were reformatted. Individualized dose optimization techniques were used for this CT. COMPARISON: February 23, 2021 FINDINGS: Normal urinary bladder. Normal visualized small intestine. Normal visualized colon. There is moderate stool. There is no pelvic fluid. There is no pelvic mass lesion or lymphadenopathy. There is diffuse atherosclerotic calcification of the pelvic arteries. There is 5.3 cm infrarenal abdominal aortic aneurysm Normal abdominal wall. There is degenerative change of the visualized lower lumbar spine. There is left hip replacement. There is 5.2 x 2.2 cm fluid collection at the right trochanteric bursa. CT/Pelvis without IV Contrast IMPRESSION: Left hip replacement. Right trochanteric bursitis versus abscess. Infrarenal abdominal aortic aneurysm. Electronically Signed: Andrés High MD at 12:30 EDT ,
--- NOTE | 2023-06-08 10:49 | EKG12_ITS ---
Test Reason : Blood Pressure : / mmHG Vent. Rate : 088 BPM Atrial Rate : 088 BPM P-R Int : 164 ms QRS Dur : 082 ms QT Int : 364 ms P-R-T Axes : 041 -60 068 degrees QTc Int : 440 ms Normal sinus rhythm Left anterior fascicular block Cannot rule out Inferior infarct (cited on or before 19-APR-2023) Abnormal ECG Confirmed by FITO SKINNER, GINA ([id number]), acquisitions editor MENDEL GALAN ([id number]) on 06/24/2023 1:52:38 PM Referred By: Confirmed By:LONA PAYTON MD
--- NOTE | 2023-06-08 10:51 | EX.ED.DYSGE1 ---
HPI History of Present Illness Chief Complaint: Wound Informant: family Onset/Context/Timing Onset: Days (3 days) Narrative Narrative: Patient presents with family secondary to a buttock wound that they have noticed over the past 3 days. They have been trying to use topical creams without improvement. No fever has been noticed. They went to urgent care this morning and were encouraged to come to the emergency room. [facility] Medical History Abdominal aortic aneurysm Adult failure to thrive Anxiety Atherosclerotic heart disease of [place] coronary artery without angina pectoris Behavioral disorder Benign prostate hyperplasia Cervicalgia Chronic pain COPD (chronic obstructive pulmonary disease) Former smoker Frequent falls Herniation of nucleus pulposus Hx of Parkinson's disease Hypokalemia IBS (irritable bowel syndrome) Parkinson disease Parkinson's disease dementia Raynauds disease Scoliosis deformity of spine Urinary frequency Urine incontinence Home Medications walker #1 ea 04/14/20 [Rx Last Taken Unknown] carbidopa 25 mg-levodopa 100 mg tablet (Sinemet) 1 tab PO TIDCM@0900,1300,1800 parkinsons 02/24/21 [History Last Taken 09/18/22 09:00] carbidopa ER 50 mg-levodopa 200 mg tablet,extended release 1 tab PO 0900,2200 parkinsons 12/07/21 [History Last Taken 09/18/22 13:00] polyethylene glycol 3350 17 gram/dose oral powder (Miralax) 17 g PO PRN CONSTIPATION 07/25/22 [History Last Taken 09/17/22 05:25] acetaminophen 500 mg tablet 1,000 mg PO Q8H PAIN 09/18/22 [History Last Taken 09/17/22 05:25] food supplemt, lactose-reduced 0.08 gram-1.5 kcal/mL oral liquid (Ensure Plus High Protein) 120 ml PO 4X/DAY SUPPLEMENT 09/18/22 [History Last Taken 09/17/22 05:25] menthol 0.44 %-zinc oxide 20.6 % topical ointment (Calmoseptine) 1 applic topical BID rash 09/18/22 [History Last Taken 09/17/22 05:26] sennosides 8.6 mg-docusate sodium 50 mg tablet (Senna Plus) 2 tab-cap PO BID PRN constipa 09/18/22 [History Last Taken 09/17/22 05:25] escitalopram oxalate 10 mg tablet 10 mg PO QHS DEPRESSION #90 tabs 02/01/23 [Rx Last Taken Unknown] tamsulosin 0.4 mg capsule 0.4 mg PO QHS BPH 30 days #30 caps 02/26/23 [Rx Last Taken Unknown] quetiapine 25 mg tablet 25 mg PO BID agitation #60 tabs 04/07/23 [Rx Last Taken Unknown] lorazepam 0.5 mg tablet 0.5 mg PO .every 6 hours PRN agitation #20 tabs 05/09/23 [Rx Last Taken Unknown] Allergy/AdvReac Type Severity Reaction Status Date / Time pregabalin [From Lyrica] AdvReac hallucinati Verified 04/06/23 15:52 ons Family History Brother Alcoholism Father Heart disease Myocardial infarction Uncle Heart disease Myocardial infarction Grandfather Heart disease Myocardial infarction Mother Heart disease Surgical History History of cataract surgery History of colonoscopy History of left hip hemiarthroplasty History of tonsillectomy Social History household members: spouse Smoking Status: Former smoker how long ago did patient quit smokin alcohol intake: never substance use type: does not use what type of physical activity do you participate in: walking frequency: daily ROS ROS ED ROS Narrative Review of systems obtained from family member. Constitutional Constitutional ED: Denies chills or fever(s) Eyes Eyes: Denies discharge from eye(s) ENT ENT ED: Denies discharge from eye(s), rhinorrhea or sore throat Cardiovascular Cardiovascular: Denies chest pain Respiratory/Chest Respiratory/Chest: Denies cough or dyspnea Gastrointestinal Gastrointestinal: Denies abdominal pain or vomiting Genitourinary Genitourinary ED: Denies dysuria Musculoskeletal Musculoskeletal: Denies extremity pain Integumentary Reports other Details: Decubitus ulcer to buttock Neurologic Neurologic: Denies weakness Allergic/Immunologic Allergic/Immunologic ED: Denies lip swelling or urticaria EXAM Physical Exam Const Vital Signs: 06/08/23 10:25 Temperature 97.2 F L Temperature Source Temporal Pulse Rate 100 Respiratory Rate 16 Blood Pressure 89/55 L Blood Pressure Mean 66 Pulse Ox 97 Oxygen Delivery Method Room Air Positive cachectic General Appearance ED: cachectic Nutritional Appearance: cachectic Eyes EOMs intact bilaterally Chest Wall inspection of chest normal and palpation of chest normal Resp normal respiratory effort and clear to auscultation bilaterally Cardio regular rate and regular rhythm GI GI Narrative: Abdomen soft with no focal tenderness. Active bowel sounds noted. Narrative: Small area of skin breakdown at the superior aspect of the buttock crease. No significant drainage at this time. Extremity Extremity Narrative: Muscle wasting noted to the extremities. Neuro Neuro Narrative: Rest with eyes closed. Will answer some questions. MDM MDM MDM Narrative Medical decision making narrative: Patient placed on trommel tender. EKG obtained to evaluate for cardiac arrhythmia/ischemia. Labwork obtained to evaluate for leukocytosis, anemia, and electrolyte derangement. CT scan of the pelvis with IV contrast obtained to evaluate for deep abscess. Blood cultures obtained along with wound cultures. Urinalysis obtained to evaluate for infection/hematuria. Urine culture obtained. History & Record Review Discussion w/independent historian: Patient and Family Additional record(s) reviewed:: Prior ED visit Lab Data Attestation: I reviewed the patient's lab results. Labs: Laboratory Results - last 24 hr 06/08/23 06/08/23 11:11 13:20 WBC 13.6 H RBC 3.70 L Hgb 11.6 L Hct 36.0 L MCV 97.3 H MCH 31.4 MCHC 32.2 RDW Std Deviation 47.7 H RDW Coeff of Boni 13.2 Plt Count 271 MPV 10.5 Immature Gran % (Auto) 1.600 H Neut % (Auto) 87.5 H Lymph % (Auto) 5.0 L [place] % (Auto) 5.1 Eos % (Auto) 0.4 Baso % (Auto) 0.4 Absolute Neuts (auto) 11.9 H Absolute Lymphs (auto) 0.68 L Nucleated RBC % 0 Sodium 143 Potassium 3.9 Chloride 110 H Carbon Dioxide 27.0 Anion Gap 6 BUN 25 H Creatinine 1.01 Estim Creat Clear Calc 49.37 Est GFR (MDRD) Af Amer 92 Est GFR (MDRD) Non-Af 76 BUN/Creatinine Ratio 24.8 H Glucose 110 H Lactic Acid 3.0 H* Calcium 8.6 Total Bilirubin 0.50 Direct Bilirubin 0.19 AST 18 ALT < 6 L Alkaline Phosphatase 86 Total Protein 7.7 Albumin 2.4 L Globulin 5.3 H Urine Color Yellow Urine Clarity Cloudy Urine pH 8.0 Ur Specific [place] 1.015 Urine Protein 100 H Urine Glucose (UA) Normal Urine Ketones 5 H Urine Occult Blood 50 H Urine Nitrite Positive H Urine Bilirubin 1 H Urine Urobilinogen 4 H Ur Leukocyte Esterase 500 H Urine RBC 0 SEEN Urine WBC 50-100 SEEN Ur Squamous Epith Cells 0 SEEN Triple Phos Crystals 1+ Urine Bacteria 4+ Urine Mucus 0 SEEN Radiography Chest X-Ray - ED: 1 View, Read by ED Physician and Right Infiltrate Diagnostic Testing: Clinical Impression(s) from Imaging Studies Pelvis CT 06/08/23 10:49 IMPRESSION: Left hip replacement. Right trochanteric bursitis versus abscess. Infrarenal abdominal aortic aneurysm. Electronically Signed: Andrés High MD at 12:30 EDT Reading Location ID and State: [address] [place] [address] , Service support , EKG Initial EKG: Attestation: I personally reviewed and interpreted this EKG as follows: Interpretation: Sinus Rhythm (Sinus at 88 with no acute ischemia.) Treatment and Re-Evaluation :: Patient's initial blood pressure was low 89/55. Blood pressure has improved and is currently 110/35 with IV fluids. He remains slightly tachycardic with a current heart rate of 111. CBC reveals elevated white count of 13.6 with 87% neutrophils. Hemoglobin slightly low at 11.6. Chemistry studies reveal normal potassium. Creatinine is normal at 1.01. Lactic acid is elevated at 3. LFTs are unremarkable. Urinalysis is positive for nitrites with 50-100 white cells and 4+ bacteria. Chest x-ray per my interpretation reveals a small right basilar infiltrate. Radiology interpretation still pending. CT scan of the pelvis with IV contrast reveals bursitis and prior hip replacement. No evidence of deep abscess. Patient has been given IV fluid boluses. He has been covered with Rocephin for his urine and I will also add a dose azithromycin given his lung findings. COVID and influenza swab is pending. I believe his likely source of sepsis is his urinary infection. I will speak with the hospitalist regarding infection. Discharge Plan Triage Chief Complaint: Wound ED Provider: Naz Castaneda Dx/Rx/DC Orders Clinical Impression: UTI (urinary tract infection), Sepsis, Decubitus ulcer, Pneumonia Prescriptions: No Action (DME) walker Qty: 1 0RF Rx Instructions: Walker with wheels, brakes, and seat carbidopa-levodopa [Sinemet] 25-100 mg Tablet 1 tab PO TIDCM@0900,1300,1800 carbidopa-levodopa 50-200 mg Tablet Extended Release 1 tab PO 0900,2200 polyethylene glycol 3350 [Miralax] 17 gram/dose Powder 17 g PO PRN sennosides-docusate sodium [Senna Plus] 8.6-50 mg Tablet 2 tab-cap PO BID PRN menthol-zinc oxide [Calmoseptine] 0.44-20.6 % Ointment 1 applic TOPICAL BID Rx Instructions: apply to groin Ensure Plus High Protein 0.08 gram-1.5 kcal/mL Liquid 120 ml PO 4X/DAY acetaminophen 500 mg tablet 1,000 mg PO Q8H quetiapine 25 mg Tablet 25 mg PO BID Qty: 60 0RF escitalopram oxalate 10 mg tablet 10 mg PO QHS Qty: 90 0RF tamsulosin 0.4 mg capsule 0.4 mg PO QHS 30 Days Qty: 30 3RF lorazepam 0.5 mg tablet 0.5 mg PO .every 6 hours MDD 2mg PRN (Reason: agitation) Qty: 20 0RF Primary Care Provider: Casper Do Referrals: Casper Do, DO [Primary Care Provider] - Disposition Disposition: Acute Care Hospital [facility]
[2023-06-08 11:26] LABS: Absolute Lymphocyte Count 0.68 X10^3/uL (0.83-4.51); Absolute Neutrophil Count 11.9 X10^3/uL (2.0-7.7); Basophil# 0.05 X10^3/uL; Basophil% 0.4 % (0-1); Eosinophil# 0.06 X10^3/uL; Eosinophils% 0.4 % (0-5); Hemoglobin 11.6 g/dL (13.0-16.5); Lymphocyte # 0.68 X10^3/ul (0.83-4.51); Mean Corp Hgb Conc 32.2 g/dL (32-36); Mean Corpuscular Hgb 31.4 pg (27.0-32.0); Mean Corpuscular Volume 97.3 fL (80-94); Mean Platelet Vol. 10.5 fl (6.2-12.0); Monocyte% 5.1 % (0-10); NRBC Flagged by Analyzer 0 % (0-5); Neutrophil # 11.89 X10^3/uL (2.7-7.7); Neutrophil % 87.5 % (47-70); Platelet Count 271 K/mm3 (150-450); RBC Distribution Width CV 13.2 % (11.6-14.6); RBC Distribution Width SD 47.7 fl (35.1-43.9); White Blood Count 13.6 K/mm3 (4.4-11.0)
[2023-06-08 11:33] VITALS: BMI 18.8
[2023-06-08 12:15] LABS: AST(SGOT) 18 U/L (15-37); Alanine Aminotransfer ALT/SGPT < 6 U/L (16-61); Albumin, Serum 2.4 g/dL (3.2-5.0); Alkaline Phosphatase 86 U/L (45-117); Anion Gap 6 (5-15); BUN 25 mg/dL (7-18); BUN/Creat Ratio 24.8 RATIO (10-20); Bilirubin, Direct 0.19 mg/dL (0.00-0.30); Calcium,Total 8.6 mg/dL (8.5-10.1); Chloride 110 mmol/L (98-107); Creatinine, Serum 1.01 mg/dL (0.70-1.30); EST Glomerular Filtration Rate 76 mL/min (>60); Est Glom Filt Rate - Afr Amer 92 mL/min (>60); Estimated Creatinine Clearance 49.37 ml/min; Globulin 5.3 g/dL (2.2-4.2); Glucose 110 mg/dL (74-106); Potassium 3.9 mmol/L (3.5-5.1); Protein, Total 7.7 g/dL (6.4-8.2); Sodium Level 143 mmol/L (136-145)
[2023-06-08 13:22] LABS: Mucous, Urine 0 SEEN /hpf (<or=2+); Red Blood Cells-Urine 0 SEEN /hpf (0-5); Squamous Epithelial Cells - UA 0 SEEN /hpf (0-5)
[2023-06-08 13:25] LABS: Color, Urine Yellow (Yellow); Glucose, Dipstick Normal (Normal); Ketone-Dipstick 5 mg/dl (Negative); Leukocyte Esterase-Dipstick 500 /ul (Negative); Nitrite-Dipstick Positive (Negative); Occult Blood-Urine 50 /ul (Negative); Protein-Dipstick 100 mg/dl (Negative); Specific Gravity, Urine 1.015 (1.002-1.030); Urine Clarity Cloudy (Clear); Urine Urobilinogen 4 mg/dl (Normal)
--- NOTE | 2023-06-08 13:35 | RAD_ITS ---
STUDY: X-RAY CHEST REASON FOR EXAM: Male, 77 years old. Cough TECHNIQUE: Single AP portable view of the chest. COMPARISON: None. FINDINGS: There are patchy right lower lung airspace increased opacities. There are interstitial increased opacities in the left lower lung. There is no demonstrated pleural abnormality. Normal size heart. Normal mediastinum and deyanira. Normal visualized pulmonary arteries. Normal visualized aortic arch and descending thoracic aorta. Normal visualized thoracic spine. Normal visualized ribs, clavicles, and shoulders. There is no demonstrated abnormality of the visualized soft tissue structures of the upper abdomen. RAD/Chest 1 View (Portable) IMPRESSION: Right lower lung infiltrate or edema. Electronically Signed: Andrés High MD at 15:18 EDT ,
[2023-06-08 13:36] LABS: Urine Bilirubin Dipstick 1 mg/dL (Negative)
[2023-06-08] MEDS: 0.9% Normal Saline 1,000 ML 999 ML IV (13:45)
[2023-06-08 14:14] LABS: Bacteria 4+ /hpf (None Seen); Triple Phosphate Crystals Ur 1+ /hpf (<or=1+); White Blood Cells 50-100 SEEN /hpf (0-5)
[2023-06-08] MEDS: Ceftriaxone 1 GM/50 ML BAG IV (14:29)
--- NOTE | 2023-06-08 15:16 | NURSING ---
MED SURG BARRY UTI, SEPSIS, PNEUMONIA
--- NOTE | 2023-06-08 15:19 | PCM.HP.STD ---
HPI - General General Date of Admission: 06/08/23 HPI Narrative NIKOLAS HANSON, is a 77 M who presents to the hospital with altered mental status and weakness. He was recently admitted for possible right lower lobe pneumonia and concern for stroke had some swallowing difficulties which lends credence to the idea of his previous admission for aspiration pneumonia and he was transferred to SNF. He ran out of his qualifying stays so family took him home and took him to urgent care because of a wound on his buttocks and at the urgent care they sent him to the ER. In the ER it appears that he has another right lower lobe pneumonia as well as a UTI. Had a UTI back in August that was Klebsiella and no one recently that was Enterococcus. He was hypotensive and tachycardic with a lactic acid of 3 consistent with sepsis based on CMS criteria so he was given 2 L of fluid and started on Rocephin and azithromycin. [facility] Medical History Abdominal aortic aneurysm Adult failure to thrive Anxiety Atherosclerotic heart disease of [place] coronary artery without angina pectoris Behavioral disorder Benign prostate hyperplasia Cervicalgia Chronic pain COPD (chronic obstructive pulmonary disease) Former smoker Frequent falls Herniation of nucleus pulposus Hx of Parkinson's disease Hypokalemia IBS (irritable bowel syndrome) Parkinson disease Parkinson's disease dementia Raynauds disease Scoliosis deformity of spine Urinary frequency Urine incontinence Home Medications walker #1 ea 04/14/20 [Rx Last Taken Unknown] carbidopa 25 mg-levodopa 100 mg tablet (Sinemet) 1 tab PO TIDCM@0900,1300,1800 parkinsons 02/24/21 [History Last Taken 09/18/22 09:00] carbidopa ER 50 mg-levodopa 200 mg tablet,extended release 1 tab PO 0900,2200 parkinsons 12/07/21 [History Last Taken 09/18/22 13:00] polyethylene glycol 3350 17 gram/dose oral powder (Miralax) 17 g PO PRN CONSTIPATION 07/25/22 [History Last Taken 09/17/22 05:25] acetaminophen 500 mg tablet 1,000 mg PO Q8H PAIN 09/18/22 [History Last Taken 09/17/22 05:25] food supplemt, lactose-reduced 0.08 gram-1.5 kcal/mL oral liquid (Ensure Plus High Protein) 120 ml PO 4X/DAY SUPPLEMENT 09/18/22 [History Last Taken 09/17/22 05:25] menthol 0.44 %-zinc oxide 20.6 % topical ointment (Calmoseptine) 1 applic topical BID rash 09/18/22 [History Last Taken 09/17/22 05:26] sennosides 8.6 mg-docusate sodium 50 mg tablet (Senna Plus) 2 tab-cap PO BID PRN constipa 09/18/22 [History Last Taken 09/17/22 05:25] escitalopram oxalate 10 mg tablet 10 mg PO QHS DEPRESSION #90 tabs 02/01/23 [Rx Last Taken Unknown] tamsulosin 0.4 mg capsule 0.4 mg PO QHS BPH 30 days #30 caps 02/26/23 [Rx Last Taken Unknown] quetiapine 25 mg tablet 25 mg PO BID agitation #60 tabs 04/07/23 [Rx Last Taken Unknown] lorazepam 0.5 mg tablet 0.5 mg PO .every 6 hours PRN agitation #20 tabs 05/09/23 [Rx Last Taken Unknown] Allergy/AdvReac Type Severity Reaction Status Date / Time pregabalin [From Lyrica] AdvReac hallucinati Verified 04/06/23 15:52 ons Family History Brother Alcoholism Father Heart disease Myocardial infarction Uncle Heart disease Myocardial infarction Grandfather Heart disease Myocardial infarction Mother Heart disease Surgical History History of cataract surgery History of colonoscopy History of left hip hemiarthroplasty History of tonsillectomy Social History household members: spouse Smoking Status: Former smoker how long ago did patient quit smokin alcohol intake: never substance use type: does not use what type of physical activity do you participate in: walking frequency: daily ROS Review of Systems ROS Unobtainable: due to mental status Vital Signs Vital Signs Vital Signs: 06/08/23 10:25 Temperature 97.2 F L Temperature Source Temporal Pulse Rate 100 Respiratory Rate 16 Blood Pressure 89/55 L Blood Pressure Mean 66 Pulse Ox 97 Oxygen Delivery Method Room Air Weight Weight: 123 lb 10.869 oz Body Mass Index (BMI) 18.8 Physical Exam Narrative General: Alert, confused, Cooperative, mild distress HEENT: Atraumatic, PERRLA, EOMI, Normocephalic, cachectic Oral: Dry mucosa Neck: Supple, No JVD Lungs: Diminished, Normal air movement, rhonchi right base, No wheeze, No rales, upper airway noise Cardiovascular: Tachycardic, Regular Rhythm, Normal S1, Normal S2, No murmurs Abdomen: Soft, Non Tender, Non-Distended, No Hepato-splenomegaly Extremities: No edema, Capillary Refill Less than 3 Seconds Skin: No rashes, No breakdown Musculoskeletal: No Tenderness to Palpation of Joints or Extremities Neurological: No further focal neurological findings, moves all extremities Psych/Mental Status: Flat affect Results Lab / Micro Data 06/08/23 11:11 06/08/23 11:11 Labs: Laboratory Results - last 24 hr 06/08/23 11:11: WBC 13.6 H, RBC 3.70 L, Hgb 11.6 L, Hct 36.0 L, MCV 97.3 H, MCH 31.4, MCHC 32.2, RDW Std Deviation 47.7 H, RDW Coeff of Boni 13.2, Plt Count 271, MPV 10.5, Immature Gran % (Auto) 1.600 H, Neut % (Auto) 87.5 H, Lymph % (Auto) 5.0 L, [place] % (Auto) 5.1, Eos % (Auto) 0.4, Baso % (Auto) 0.4, Absolute Neuts (auto) 11.9 H, Absolute Lymphs (auto) 0.68 L, Nucleated RBC % 0, Sodium 143, Potassium 3.9, Chloride 110 H, Carbon Dioxide 27.0, Anion Gap 6, BUN 25 H, Creatinine 1.01, Estim Creat Clear Calc 49.37, Est GFR (MDRD) Af Amer 92, Est GFR (MDRD) Non-Af 76, BUN/Creatinine Ratio 24.8 H, Glucose 110 H, Lactic Acid 3.0 H*, Calcium 8.6, Total Bilirubin 0.50, Direct Bilirubin 0.19, AST 18, ALT < 6 L, Alkaline Phosphatase 86, Total Protein 7.7, Albumin 2.4 L, Globulin 5.3 H 06/08/23 13:20: Urine Color Yellow, Urine Clarity Cloudy, Urine pH 8.0, Ur Specific [place] 1.015, Urine Protein 100 H, Urine Glucose (UA) Normal, Urine Ketones 5 H, Urine Occult Blood 50 H, Urine Nitrite Positive H, Urine Bilirubin 1 H, Urine Urobilinogen 4 H, Ur Leukocyte Esterase 500 H, Urine RBC 0 SEEN, Urine WBC 50-100 SEEN, Ur Squamous Epith Cells 0 SEEN, Triple Phos Crystals 1+, Urine Bacteria 4+, Urine Mucus 0 SEEN Micro: Microbiology 06/08/23 13:52 Nasal Secretion SARS-CoV-2 & FLU Antigen (Rapid) - Final Radiology Impression Pelvis CT 06/08/23 10:49 IMPRESSION: Left hip replacement. Right trochanteric bursitis versus abscess. Infrarenal abdominal aortic aneurysm. Electronically Signed: Andrés High MD at 12:30 EDT , Chest X-Ray 06/08/23 13:35 IMPRESSION: Right lower lung infiltrate or edema. Electronically Signed: Andrés High MD at 15:18 EDT , Assessment & Plan Assessment/Plan (1) Pneumonia: (2) Sepsis: (3) UTI (urinary tract infection): PLAN: Plan 1. Sepsis and acute metabolic encephalopathy secondary to UTI and right lower lobe pneumonia from aspiration/severe protein calorie malnutrition ? On his previous admission he was seen by speech therapy would recommend follow-up with speech therapy during this admission ? Urine cultures pending, continue with Unasyn to treat both UTI and pneumonia, he has had a previous Klebsiella UTI and Enterococcus faecalis ? On admission he was tachycardic, hypotensive with a lactic acid of 3 ? Unfortunately family is not at bedside however given his chronic medical history as well as his recurrent admissions may be beneficial to discuss with the family about the difference between palliative care and hospice ? Will recommend a dietary consult 2. Parkinson's with Parkinson's dementia/anxiety/depression ? Can resume his home Sinemet ? Continue with the Seroquel and Ativan ? We will monitor and make adjustments 3. BPH ? Stable ? Continue with Flomax DVT: Lovenox 75 minutes was spent on direct patient care, including documentation as well as chart review and collaboration with colleagues Sepsis Attestation Sepsis Attestation: Agree w/Sepsis Possible Source of Sepsis: Pulmonary and Genitourinary Sepsis Organ Dysfunction Criteria Present: SBP < 90 mmHg or MAP < 65 mmHg, Lactic Acid > 2 mmol/L and New/Unexplained change in mental status Charges/Coding Visit Charges Inpatient E&M: 77238 Init Hosp L3
[2023-06-08 15:21] LABS: Reflex Lactate? Y
[2023-06-08 15:51] VITALS: BP 106/90; PULSE 105; RESP 22; O2SAT 95
[2023-06-08 15:59] VITALS: BP 106/90; PULSE 105; RESP 20; TEMP 36.8; O2SAT 95
[2023-06-08 16:47] VITALS: BMI 18.4
[2023-06-08 17:25] LABS: Lactic Acid 2.6 mmol/L (0.4-1.9)
[2023-06-08 17:35] VITALS: BP 92/60; PULSE 86; RESP 16; TEMP 36.9; O2SAT 95
[2023-06-08 18:59] VITALS: BP 98/55; PULSE 87; RESP 20; TEMP 37.3; O2SAT 94
[2023-06-08] MEDS: 0.9% Normal Saline 1,000 ML 100 ML IV (20:21)
[2023-06-08 22:30] VITALS: BP 94/52; PULSE 78; RESP 18; TEMP 37.9; O2SAT 92
[2023-06-09 02:00] VITALS: BP 85/44; PULSE 77; RESP 18; TEMP 37.6; O2SAT 91
[2023-06-09 03:05] VITALS: BP 114/74; PULSE 84; RESP 18; TEMP 36.9; O2SAT 95
[2023-06-09] MEDS: 0.9% Normal Saline 1,000 ML 100 ML IV (06:05)
[2023-06-09] MEDS: Menthol/Lanolin/Calamine/Znox 113 GM Tube 1 APPLIC TOPICAL ×3 (06:05→21:40)
[2023-06-09 06:30] LABS: Absolute Lymphocyte Count 0.84 X10^3/uL (0.83-4.51); Absolute Neutrophil Count 11.1 X10^3/uL (2.0-7.7); Basophil# 0.06 X10^3/uL; Basophil% 0.5 % (0-1); Eosinophil# 0.02 X10^3/uL; Eosinophils% 0.2 % (0-5); Hematocrit 36.9 % (40-54); Hemoglobin 11.7 g/dL (13.0-16.5); Lymphocyte # 0.84 X10^3/ul (0.83-4.51); Lymphocyte % 6.6 % (19-41); Mean Corp Hgb Conc 31.7 g/dL (32-36); Mean Corpuscular Hgb 31.3 pg (27.0-32.0); Mean Corpuscular Volume 98.7 fL (80-94); Mean Platelet Vol. 10.9 fl (6.2-12.0); Monocyte# 0.63 X10^3/uL; Monocyte% 4.9 % (0-10); NRBC Flagged by Analyzer 0 % (0-5); Neutrophil # 11.09 X10^3/uL (2.7-7.7); Neutrophil % 86.4 % (47-70); Platelet Count 234 K/mm3 (150-450); RBC Distribution Width CV 13.3 % (11.6-14.6); RBC Distribution Width SD 48.2 fl (35.1-43.9); Red Blood Count 3.74 M/mm3 (4.6-6.2); White Blood Count 12.8 K/mm3 (4.4-11.0)
[2023-06-09 07:06] LABS: Anion Gap 5 (5-15); BUN 18 mg/dL (7-18); BUN/Creat Ratio 21.9 RATIO (10-20); Calcium,Total 8.5 mg/dL (8.5-10.1); Chloride 112 mmol/L (98-107); Creatinine, Serum 0.82 mg/dL (0.70-1.30); EST Glomerular Filtration Rate 97 mL/min (>60); Est Glom Filt Rate - Afr Amer 117 mL/min (>60); Estimated Creatinine Clearance 59.79 ml/min; Glucose 100 mg/dL (74-106); Potassium 4.1 mmol/L (3.5-5.1); Sodium Level 145 mmol/L (136-145)
--- NOTE | 2023-06-09 07:54 | PN.HOSP_ITS ---
Reason for Visit Reason for Visit: Diagnoses Sepsis, unspecified organism (06/08/23) Pneumonia, unspecified organism (06/08/23) Urinary tract infection, site not specified (06/08/23) Subjective Subjective confused, poor historian. Objective Data Objective Data Vital Signs: Vital Signs Temp Pulse Resp BP Pulse Ox O2 Del Method O2 Flow Rate 36.9 C 84 18 114/74 95 Nasal Cannula 2 06/09/23 03:05 06/09/23 03:05 06/09/23 03:05 06/09/23 03:05 06/09/23 03:05 06/09/23 04:46 06/09/23 03:05 Oxygen Flow Rate (L/min) 2 Oxygen Delivery Method Nasal Cannula Weight: 55.157 kg Body Mass Index (BMI) 18.4 Intake & Output: Intake and Output for Last 24 Hours 06/07/23 06/08/23 06/09/23 23:59 23:59 23:59 Intake Total 1805 / 1805 1085.33 / 1085.33 Output Total 175 / 175 Balance 1805 / 1730 910.33 / 910.33 Lab / Micro Data 06/09/23 05:25 06/09/23 05:25 Labs: Laboratory Results - last 24 hr 06/08/23 11:11: WBC 13.6 H, RBC 3.70 L, Hgb 11.6 L, Hct 36.0 L, MCV 97.3 H, MCH 31.4, MCHC 32.2, RDW Std Deviation 47.7 H, RDW Coeff of Boni 13.2, Plt Count 271, MPV 10.5, Immature Gran % (Auto) 1.600 H, Neut % (Auto) 87.5 H, Lymph % (Auto) 5.0 L, [place] % (Auto) 5.1, Eos % (Auto) 0.4, Baso % (Auto) 0.4, Absolute Neuts (auto) 11.9 H, Absolute Lymphs (auto) 0.68 L, Nucleated RBC % 0, Sodium 143, Potassium 3.9, Chloride 110 H, Carbon Dioxide 27.0, Anion Gap 6, BUN 25 H, Creatinine 1.01, Estim Creat Clear Calc 49.37, Est GFR (MDRD) Af Amer 92, Est GFR (MDRD) Non-Af 76, BUN/Creatinine Ratio 24.8 H, Glucose 110 H, Lactic Acid 3.0 H*, Calcium 8.6, Total Bilirubin 0.50, Direct Bilirubin 0.19, AST 18, ALT < 6 L, Alkaline Phosphatase 86, Total Protein 7.7, Albumin 2.4 L, Globulin 5.3 H 06/08/23 13:20: Urine Color Yellow, Urine Clarity Cloudy, Urine pH 8.0, Ur Specific [place] 1.015, Urine Protein 100 H, Urine Glucose (UA) Normal, Urine Ketones 5 H, Urine Occult Blood 50 H, Urine Nitrite Positive H, Urine Bilirubin 1 H, Urine Urobilinogen 4 H, Ur Leukocyte Esterase 500 H, Urine RBC 0 SEEN, Urine WBC 50-100 SEEN, Ur Squamous Epith Cells 0 SEEN, Triple Phos Crystals 1+, Urine Bacteria 4+, Urine Mucus 0 SEEN 06/08/23 16:50: Lactic Acid 2.6 H* 06/09/23 05:25: WBC 12.8 H, RBC 3.74 L, Hgb 11.7 L, Hct 36.9 L, MCV 98.7 H, MCH 31.3, MCHC 31.7 L, RDW Std Deviation 48.2 H, RDW Coeff of Boni 13.3, Plt Count 234, MPV 10.9, Immature Gran % (Auto) 1.400 H, Neut % (Auto) 86.4 H, Lymph % (Auto) 6.6 L, [place] % (Auto) 4.9, Eos % (Auto) 0.2, Baso % (Auto) 0.5, Absolute Neuts (auto) 11.1 H, Absolute Lymphs (auto) 0.84, Nucleated RBC % 0, Sodium 145, Potassium 4.1, Chloride 112 H, Carbon Dioxide 28.0, Anion Gap 5, BUN 18, Creatinine 0.82, Estim Creat Clear Calc 59.79, Est GFR (MDRD) Af Amer 117, Est GFR (MDRD) Non-Af 97, BUN/Creatinine Ratio 21.9 H, Glucose 100, Calcium 8.5 Micro: Microbiology 06/08/23 13:52 Nasal Secretion SARS-CoV-2 & FLU Antigen (Rapid) - Final Radiography Diagnostic Testing: Radiology Impression Pelvis CT 06/08/23 10:49 IMPRESSION: Left hip replacement. Right trochanteric bursitis versus abscess. Infrarenal abdominal aortic aneurysm. Electronically Signed: Andrés High MD at 12:30 EDT Reading Location ID and State: [email or web address] / [place] , Service support , Chest X-Ray 06/08/23 13:35 IMPRESSION: Right lower lung infiltrate or edema. Electronically Signed: Andrés High MD at 15:18 EDT , Physical Exam Const Constitutional Narrative: confused. cachectic. afebrile. HEENT head/scalp atraumatic and moist oral mucous membranes Eyes Eyes Narrative: no icterus. Resp Resp Narrative: coarse breath sounds bilaterally. Cardio regular rate, regular rhythm, S1 normal heart sound and S2 normal heart sound GI normal to inspection, nondistended, normoactive bowel sounds, soft to palpation, non-tender and non-distended Extremity normal to inspection Extremity Narrative: No reproducible pain over the right hip. Skin Skin Narrative: Dressing over sacral wound Assessment & Plan Assessment/Plan (1) Sepsis: QUALIFIERS: Sepsis type: sepsis due to unspecified organism Sepsis acute organ dysfunction status: with acute organ dysfunction Severe sepsis acute organ dysfunction type: encephalopathy Severe sepsis shock status: without septic shock Qualified Code(s): A41.9 - Sepsis, unspecified organism; R65.20 - Severe sepsis without septic shock; G93.40 - Encephalopathy, unspecified PLAN: present on admission: qSOFA 3, SIRS 3/4 source: RLL pneumonia +/- UTI. Less likely trochanteric abscess Received 1.5 liters of IVF in ED. Data: * COVID 19, influenza negative * BCx, UCx, Wound Cx pending * CXR shows RLL infiltrate * CT of pelvis showed right trochanteric bursitis v abscess TMT: * received CTX and azithromycin in ED * ordered ampicillin/SB on admission * given recent hospitalization (April), pt at risk for gram negative and MRSA pneumonia. Will broaden abx to pip/tazo and vancomycin * If right hip seems to get worse, would consider consulting orthopedics for aspiration of the trochanteric bursa. (2) Pneumonia: QUALIFIERS: Laterality: right Lung location: lower lobe of lung Pneumonia type: due to unspecified organism Qualified Code(s): J18.9 - Pneumonia, unspecified organism PLAN: may be aspiration given h/o dysphagia pulmonary toilet as able abx as above check urinary antigens for strep and legionella check sputum culture, if able (3) UTI (urinary tract infection): QUALIFIERS: Hematuria presence: without hematuria Urinary tract infection type: acute cystitis Qualified Code(s): N30.00 - Acute cystitis without hematuria PLAN: h/o enterococcus faecalis abx as above follow up UCx (4) Dysphagia: QUALIFIERS: Dysphagia type: unspecified Qualified Code(s): R13.10 - Dysphagia, unspecified PLAN: complicated by dementia ST eval currently NPO. continue IVF. (5) Sacral wound: QUALIFIERS: Encounter type: subsequent encounter Qualified Code(s): S31.000D - Unspecified open wound of lower back and pelvis without penetration into retroperitoneum, subsequent encounter PLAN: consult wound care dressing intact turn and reposition. PLAN: Plan Chronic conditions: * Chronic COPD: Currently stable. * Parkinson's disease: carbidopa/levodopa when able to take oral * Anxiety and depression: Quetiapine when able to take oral. PRN lorazepam * AAA: Most recent imaging 02/23/2021 CT abdomen and pelvis with a 4.5 cm infrarenal abdominal aortic aneurysm, encourage continued outpatient evaluation and monitoring. * BPH: tamsulosin when able to take oral. * Nonobstructive CAD: stable VTE prophylaxis: enoxaparin Charges/Coding Visit Charges Inpatient E&M: 10602 [facility] Hosp L3
[2023-06-09 08:04] VITALS: BP 94/68; PULSE 89; RESP 16; TEMP 37.1; O2SAT 94
[2023-06-09] MEDS: Enoxaparin 40 MG/0.4 ML Syringe SC (11:22)
--- NOTE | 2023-06-09 12:47 | PCM.RX.CS ---
Consult Antibiotic Management Pharmacy has been consulted to manage selected antiobiotic: Vancomycin Type of Intervention Type of Consult: Suspected Infection Suspected Infection: Sepsis Labs Labs: Sodium 145 mmol/L (136-145) 06/09/23 05:25 Potassium 4.1 mmol/L (3.5-5.1) 06/09/23 05:25 Chloride 112 mmol/L (98-107) H 06/09/23 05:25 Carbon Dioxide 28.0 mmol/L (21.0-32.0) 06/09/23 05:25 Anion Gap 5 (5-15) 06/09/23 05:25 BUN 18 mg/dL (7-18) 06/09/23 05:25 Creatinine 0.82 mg/dL (0.70-1.30) 06/09/23 05:25 Est GFR (MDRD) Af Amer 117 mL/min (>60) 06/09/23 05:25 Est GFR (MDRD) Non-Af 97 mL/min (>60) 06/09/23 05:25 BUN/Creatinine Ratio 21.9 RATIO (10-20) H 06/09/23 05:25 Glucose 100 mg/dL (74-106) 06/09/23 05:25 Microbiology Microbiology: Microbiology 06/08/23 12:09 Wound - Buttock Gram Stain - Final 06/08/23 12:09 Wound - Buttock Wound Culture - Preliminary Gram negative francisco Beta streptococcus 06/08/23 13:20 Urine Catheter - Catheter Urine Culture - Preliminary Gram negative francisco 06/08/23 13:52 Nasal Secretion SARS-CoV-2 & FLU Antigen (Rapid) - Final Goal Trough Goal Trough: 15-20 mcg/mL Pharmacy Plan for Drug Dosing Pharmacy Plan for Drug Dosing: NEW START IV VANCOMYCIN Consulting Physician: Dr. Rhoades Indication: Sepsis Goal Trough: 15-20 SrCr: 0.82 CrCl: 59 mL/min Comments: Loading dose of 1500mg IV x1 ordered and administered 06/09/23 @0942 Vancomycin Dose: 500mg IV Q12hr to start 06/09/23 @2200 Pending Level: 06/10/23 @2130, prior to 4th total dose per protocol Pharmacy Service will continue to monitor and adjust dosing as required.
[2023-06-09 13:43] VITALS: BP 122/53; PULSE 96; RESP 16; TEMP 37.1; O2SAT 93
[2023-06-09 21:03] VITALS: BP 124/74; PULSE 87; RESP 16; TEMP 36.5; O2SAT 95
[2023-06-09] MEDS: Vancomycin IV 500 MG/100 ML BAG 100 MG IV (21:41)
[2023-06-10] MEDS: 0.9% Normal Saline 1,000 ML 100 ML IV ×3 (00:30→16:08)
[2023-06-10 03:18] VITALS: BP 153/99; PULSE 88; RESP 16; TEMP 36.4; O2SAT 94
[2023-06-10] MEDS: Menthol/Lanolin/Calamine/Znox 113 GM Tube 1 APPLIC TOPICAL ×2 (05:40→13:51)
[2023-06-10 06:30] LABS: Absolute Lymphocyte Count 1.04 X10^3/uL (0.83-4.51); Absolute Neutrophil Count 8.4 X10^3/uL (2.0-7.7); Basophil# 0.04 X10^3/uL; Basophil% 0.4 % (0-1); Eosinophil# 0.04 X10^3/uL; Eosinophils% 0.4 % (0-5); Hematocrit 35.9 % (40-54); Hemoglobin 11.5 g/dL (13.0-16.5); Lymphocyte # 1.04 X10^3/ul (0.83-4.51); Lymphocyte % 10.4 % (19-41); Mean Corpuscular Hgb 30.7 pg (27.0-32.0); Mean Platelet Vol. 10.7 fl (6.2-12.0); Monocyte# 0.38 X10^3/uL; Monocyte% 3.8 % (0-10); NRBC Flagged by Analyzer 0 % (0-5); Neutrophil # 8.35 X10^3/uL (2.7-7.7); Neutrophil % 83.6 % (47-70); Platelet Count 267 K/mm3 (150-450); RBC Distribution Width CV 13.1 % (11.6-14.6); Red Blood Count 3.74 M/mm3 (4.6-6.2)
[2023-06-10 07:21] LABS: Anion Gap 6 (5-15); BUN 19 mg/dL (7-18); Chloride 103 mmol/L (98-107); Creatinine, Serum 1.12 mg/dL (0.70-1.30); EST Glomerular Filtration Rate 68 mL/min (>60); Est Glom Filt Rate - Afr Amer 82 mL/min (>60); Estimated Creatinine Clearance 43.78 ml/min; Glucose 110 mg/dL (74-106); Potassium 3.3 mmol/L (3.5-5.1); Sodium Level 138 mmol/L (136-145)
[2023-06-10 08:04] VITALS: BP 156/93; PULSE 96; RESP 18; TEMP 36.7; O2SAT 95; O2SAT 98
[2023-06-10] MEDS: Vancomycin IV 500 MG/100 ML BAG 100 MG IV (08:53)
[2023-06-10] MEDS: QUEtiapine 25 MG Tablet PO (10:00)
--- NOTE | 2023-06-10 10:42 | PCM.PN.HOSP ---
Subjective Subjective No issues overnight, still confused said that he was having diarrhea however nursing staff states that he is only had 1 small hard stool Objective Data Objective Data Vital Signs: Vital Signs Temp Pulse Resp BP Pulse Ox O2 Del Method O2 Flow Rate 98.0 F 96 18 156/93 H 95 Room Air 2 06/10/23 08:04 06/10/23 08:04 06/10/23 08:04 06/10/23 08:04 06/10/23 08:04 06/10/23 08:04 06/09/23 03:05 Oxygen Flow Rate (L/min) 2 Oxygen Delivery Method Room Air Weight: 121 lb 9.6 oz Body Mass Index (BMI) 18.4 Intake & Output: Intake and Output for Last 24 Hours 06/09/23 06/10/23 06/11/23 03:59 03:59 03:59 Intake Total 1917 / 1917 2800.83 / 2800.83 838.33 / 838.33 Output Total 75 / 75 100 / 100 Balance 1842 / 1842 2700.83 / 2700.83 838.33 / 838.33 Medical Nutrition Assessment Dietitian: Malnutrition Criteria Met Start: 06/09/23 10:16 Freq: Status: Active Protocol: Document 06/09/23 10:16 ROSELYN (Rec: 06/09/23 10:16 ROSELYN [id number]) Nutrition Malnutrition Evidence of Malnutrition Exists Yes Malnutrition (severe): Chronic Evidenced By Suboptimal Energy Intake ( Severe),Weight Loss (Severe), Physical Changes (Moderate) Intake Problem Increased Nutrient Needs (specify) Etiology protein related to skin Signs/Symptoms as evidenced by reddened buttocks and mushy heels Status Active Problem Clinical Problem Chronic Disease or Condition Related Malnutrition Etiology related to inadequate energy intake Signs/Symptoms as evidenced by 8.9% unintentional wt loss and eating < 50% of estimated nutritional needs x 4 mo ; fat /muscle loss throughout body, BMI 18.5 Status Active Problem Recommendation Dietitian Recommendations/Changes As medically able, rec NICOLÁS to liberal regular diet - consistency per ASSET LIABILITY ANALYST - d/t signs/symptoms of malnutrition Rec Lex bid to help preserve skin integrity Rec 120 ml ensure plus high protein 4x/day w/ medpass for increased nutrition if consumed. Lab / Micro Data 06/10/23 05:44 06/10/23 05:44 Labs: Laboratory Results - last 24 hr 06/10/23 05:44: WBC 10.0, RBC 3.74 L, Hgb 11.5 L, Hct 35.9 L, MCV 96.0 H, MCH 30.7, MCHC 32.0, RDW Std Deviation 46.0 H, RDW Coeff of Boni 13.1, Plt Count 267, MPV 10.7, Immature Gran % (Auto) 1.400 H, Neut % (Auto) 83.6 H, Lymph % (Auto) 10.4 L, [place] % (Auto) 3.8, Eos % (Auto) 0.4, Baso % (Auto) 0.4, Absolute Neuts (auto) 8.4 H, Absolute Lymphs (auto) 1.04, Nucleated RBC % 0, Sodium 138, Potassium 3.3 L, Chloride 103, Carbon Dioxide 29.0, Anion Gap 6, BUN 19 H, Creatinine 1.12, Estim Creat Clear Calc 43.78, Est GFR (MDRD) Af Amer 82, Est GFR (MDRD) Non-Af 68, BUN/Creatinine Ratio 17.0, Glucose 110 H, Calcium 8.0 L Micro: Microbiology 06/08/23 13:20 Urine Catheter - Catheter Urine Culture - Final Proteus mirabilis 06/08/23 12:09 Wound - Buttock Gram Stain - Final 06/08/23 12:09 Wound - Buttock Wound Culture - Preliminary Gram negative francisco Beta streptococcus 06/08/23 13:52 Nasal Secretion SARS-CoV-2 & FLU Antigen (Rapid) - Final Physical Exam Narrative General: Alert, confused, Cooperative, mild distress HEENT: Atraumatic, PERRLA, EOMI, Normocephalic, cachectic Oral: Dry mucosa Neck: Supple, No JVD Lungs: Diminished, Normal air movement, rhonchi right base, No wheeze, No rales, upper airway noise Cardiovascular: Tachycardic, Regular Rhythm, Normal S1, Normal S2, No murmurs Abdomen: Soft, Non Tender, Non-Distended, No Hepato-splenomegaly Extremities: No edema, Capillary Refill Less than 3 Seconds Skin: Sacral decubitus wound dressed Musculoskeletal: No Tenderness to Palpation of Joints or Extremities Neurological: No further focal neurological findings, moves all extremities Psych/Mental Status: Flat affect Assessment & Plan Assessment/Plan (1) Sepsis: QUALIFIERS: Sepsis type: sepsis due to unspecified organism Sepsis acute organ dysfunction status: with acute organ dysfunction Severe sepsis acute organ dysfunction type: encephalopathy Severe sepsis shock status: without septic shock Qualified Code(s): A41.9 - Sepsis, unspecified organism; R65.20 - Severe sepsis without septic shock; G93.40 - Encephalopathy, unspecified (2) Pneumonia: QUALIFIERS: Pneumonia type: due to unspecified organism Laterality: right Lung location: lower lobe of lung Qualified Code(s): J18.9 - Pneumonia, unspecified organism (3) UTI (urinary tract infection): QUALIFIERS: Urinary tract infection type: acute cystitis Hematuria presence: without hematuria Qualified Code(s): N30.00 - Acute cystitis without hematuria (4) Dysphagia: QUALIFIERS: Dysphagia type: unspecified Qualified Code(s): R13.10 - Dysphagia, unspecified (5) Sacral wound: QUALIFIERS: Encounter type: subsequent encounter Qualified Code(s): S31.000D - Unspecified open wound of lower back and pelvis without penetration into retroperitoneum, subsequent encounter PLAN: Plan 1. Sepsis and acute metabolic encephalopathy secondary to UTI and right lower lobe pneumonia from aspiration/severe protein calorie malnutrition/sacral decubitus wound ? On his previous admission he was seen by speech therapy would recommend follow-up with speech therapy during this admission ? Urine culture with Proteus, can likely de-escalate antibiotics ?We will attempt to discuss with family the role of hospice versus palliative care given his medical condition ? Will recommend a dietary consult ? Sacral wound with a gram-negative francisco and beta Streptococcus, will de-escalate antibiotics 2. Parkinson's with Parkinson's dementia/anxiety/depression ? Can resume his home Sinemet ? Continue with the Seroquel and Ativan ? We will monitor and make adjustments 3. BPH ? Stable ? Continue with Flomax DVT: Lovenox Charges/Coding Visit Charges Inpatient E&M: 40695 Subs Hosp L2
[2023-06-10 11:12] LABS: Magnesium 1.9 mg/dL (1.6-2.6); Phosphorus 2.9 mg/dL (2.5-4.9)
[2023-06-10] MEDS: Ensure Plus High Protein 120 ML LIQUID PO (13:48)
[2023-06-10] MEDS: Enoxaparin 40 MG/0.4 ML Syringe SC (13:50)
[2023-06-10] MEDS: Carbidopa/Levodopa 25/100 Tablet PO (13:51)
[2023-06-10] MEDS: Acetaminophen 500 MG Tablet 1000 MG PO (13:52)
[2023-06-10 14:00] VITALS: RESP 18; O2SAT 94
[2023-06-10] MEDS: Potassium Chloride 10mEq/100mL 10 MEQ/100 ML IV.SOLN. 100 MEQ IV BOLUS ×3 (15:00→17:34)
[2023-06-10 17:00] VITALS: BP 154/82; PULSE 88; RESP 18; TEMP 36.7; O2SAT 94
[2023-06-10 20:56] VITALS: BP 128/81; PULSE 88; RESP 16; TEMP 36.9; O2SAT 94
[2023-06-10 20:57] VITALS: O2SAT 94
--- NOTE | 2023-06-11 09:00 | PCM.DC.SUM ---
Providers Date of Admission: 06/08/23 Date of Discharge: 06/10/23 Primary Care Physician: Dr. Casper Do, DO Consultations 06/09/23 11:17 Consult: Onc/Wound/personal lines sales rep Routine Comment: 06/10/23 12:24 Consult: Hospice / Palliative Care Routine Consulting Provider: [facility] Reason for Consult: END OF LIFE CARE EMERGENT Consult: No MD Notified: Yes Date Notified: 06/10/23 Time Notified: 12:24 Method of Notification: Answering Service Reason For Visit: UTI,SEPSIS,PNEMONIA Diagnosis Discharge Diagnosis (1) Sepsis: Status: Acute Code(s): A41.9 - Sepsis, unspecified organism Qualifiers: Sepsis type: sepsis due to unspecified organism Sepsis acute organ dysfunction status: with acute organ dysfunction Severe sepsis acute organ dysfunction type: encephalopathy Severe sepsis shock status: without septic shock Qualified Code(s): A41.9 - Sepsis, unspecified organism; R65.20 - Severe sepsis without septic shock; G93.40 - Encephalopathy, unspecified (2) Pneumonia: Status: Acute Code(s): J18.9 - Pneumonia, unspecified organism Qualifiers: Pneumonia type: due to unspecified organism Laterality: right Lung location: lower lobe of lung Qualified Code(s): J18.9 - Pneumonia, unspecified organism (3) UTI (urinary tract infection): Status: Acute Code(s): N39.0 - Urinary tract infection, site not specified Qualifiers: Urinary tract infection type: acute cystitis Hematuria presence: without hematuria Qualified Code(s): N30.00 - Acute cystitis without hematuria (4) Dysphagia: Status: Acute Code(s): R13.10 - Dysphagia, unspecified Qualifiers: Dysphagia type: unspecified Qualified Code(s): R13.10 - Dysphagia, unspecified (5) Sacral wound: Status: Acute Code(s): S31.000A - Unspecified open wound of lower back and pelvis without penetration into retroperitoneum, initial encounter Qualifiers: Encounter type: subsequent encounter Qualified Code(s): S31.000D - Unspecified open wound of lower back and pelvis without penetration into retroperitoneum, subsequent encounter Medications at Discharge Home Medications walker #1 ea 04/14/20 carbidopa 25 mg-levodopa 100 mg tablet (Sinemet) 1 tab PO TIDCM@0900,1300,1800 parkinsons 02/24/21 carbidopa ER 50 mg-levodopa 200 mg tablet,extended release 1 tab PO 0900,2200 parkinsons 12/07/21 polyethylene glycol 3350 17 gram/dose oral powder (Miralax) 17 g PO PRN CONSTIPATION 07/25/22 acetaminophen 500 mg tablet 1,000 mg PO Q8H PAIN 09/18/22 food supplemt, lactose-reduced 0.08 gram-1.5 kcal/mL oral liquid (Ensure Plus High Protein) 120 ml PO 4X/DAY SUPPLEMENT 09/18/22 menthol 0.44 %-zinc oxide 20.6 % topical ointment (Calmoseptine) 1 applic topical BID rash 09/18/22 sennosides 8.6 mg-docusate sodium 50 mg tablet (Senna Plus) 2 tab-cap PO BID PRN constipa 09/18/22 escitalopram oxalate 10 mg tablet 10 mg PO QHS DEPRESSION #90 tabs 02/01/23 tamsulosin 0.4 mg capsule 0.4 mg PO QHS BPH 30 days #30 caps 02/26/23 quetiapine 25 mg tablet 25 mg PO BID agitation #60 tabs 04/07/23 lorazepam 0.5 mg tablet 0.5 mg PO .every 6 hours PRN agitation #20 tabs 05/09/23 Hospital Course Operations None Procedures None Summary of Care Provided Minutes Spent on Discharge: 40 Hospital Course: Per HPI: NIKOLAS HANSON, is a 77 M who presents to the hospital with altered mental status and weakness. He was recently admitted for possible right lower lobe pneumonia and concern for stroke had some swallowing difficulties which lends credence to the idea of his previous admission for aspiration pneumonia and he was transferred to SNF. He ran out of his qualifying stays so family took him home and took him to urgent care because of a wound on his buttocks and at the urgent care they sent him to the ER. In the ER it appears that he has another right lower lobe pneumonia as well as a UTI. Had a UTI back in August that was Klebsiella and no one recently that was Enterococcus. He was hypotensive and tachycardic with a lactic acid of 3 consistent with sepsis based on CMS criteria so he was given 2 L of fluid and started on Rocephin and azithromycin. Hospital course: 1. Sepsis and acute metabolic encephalopathy secondary to UTI and right lower lobe pneumonia from aspiration/severe protein calorie malnutrition/sacral decubitus wound ? On his previous admission he was seen by speech therapy would recommend follow-up with speech therapy during this admission ? Urine culture with Proteus, can likely de-escalate antibiotics ?We will attempt to discuss with family the role of hospice versus palliative care given his medical condition ? Will recommend a dietary consult ? Sacral wound with a gram-negative francisco and beta Streptococcus, will de-escalate antibiotics ? I had a 20-minute discussion on advance care planning with the and she has elected to proceed with hospice. Hospice was able to evaluate him and felt that he was appropriate for the inpatient unit so he was [facility] on the evening of 06/10/2023. Given that he is hospice I would consider transitioning him to oral antibiotics under the purview of hospice. 2. Parkinson's with Parkinson's dementia/anxiety/depression ? Can resume his home Sinemet ? Continue with the Seroquel and Ativan ? We will monitor and make adjustments 3. BPH ? Stable ? Continue with Flomax Weight / BMI Weight Weight: 121 lb 9.6 oz Body Mass Index (BMI) 18.4 ABG / Lab / Microbiology Data 06/10/23 05:44 06/10/23 05:44 Laboratory: Laboratory Results - last 24 hr 06/10/23 05:44: Sodium 138, Potassium 3.3 L, Chloride 103, Carbon Dioxide 29.0, Anion Gap 6, BUN 19 H, Creatinine 1.12, Estim Creat Clear Calc 43.78, Est GFR (MDRD) Af Amer 82, Est GFR (MDRD) Non-Af 68, BUN/Creatinine Ratio 17.0, Glucose 110 H, Calcium 8.0 L, Phosphorus 2.9, Magnesium 1.9 Microbiology: Microbiology 06/08/23 12:09 Wound - Buttock Gram Stain - Final 06/08/23 12:09 Wound - Buttock Wound Culture - Final Proteus mirabilis Streptococcus agalactiae (B) Enterococcus faecalis 06/08/23 12:09 Wound - Buttock Anaerobic Culture - Preliminary Checking for anaerobes, further studies to follow. 06/08/23 12:20 Blood Culture (Wb) - Right Wrist Blood Culture - Preliminary No growth in 48 hours. 06/08/23 11:11 Blood Culture (Wb) - Left Forearm Blood Culture - Preliminary No growth in 48 hours. 06/08/23 13:20 Urine Catheter - Catheter Urine Culture - Final Proteus mirabilis 06/08/23 13:52 Nasal Secretion SARS-CoV-2 & FLU Antigen (Rapid) - Final Meaningful Use Info Meaningful Use Diagnoses (Choose all that apply): None applicable Discharge Plan Admission Admit Date/Time: 06/08/23 15:12 Attending Provider: Jeferson Strong Primary Care Provider: Casper Do Consulting Providers: Jeferson Strong; Thanh Rhoades; Sylvester Tate; Shirley Ahuja; Marcia Avendaon; Tanesha Ma SENIOR CLINICAL STUDY MANAGER Discharge Orders/Prescriptions Prescriptions: No Action (DME) walker Qty: 1 0RF Rx Instructions: Walker with wheels, brakes, and seat carbidopa-levodopa [Sinemet] 25-100 mg Tablet 1 tab PO TIDCM@0900,1300,1800 carbidopa-levodopa 50-200 mg Tablet Extended Release 1 tab PO 0900,2200 polyethylene glycol 3350 [Miralax] 17 gram/dose Powder 17 g PO PRN sennosides-docusate sodium [Senna Plus] 8.6-50 mg Tablet 2 tab-cap PO BID PRN menthol-zinc oxide [Calmoseptine] 0.44-20.6 % Ointment 1 applic TOPICAL BID Rx Instructions: apply to groin Ensure Plus High Protein 0.08 gram-1.5 kcal/mL Liquid 120 ml PO 4X/DAY acetaminophen 500 mg tablet 1,000 mg PO Q8H quetiapine 25 mg Tablet 25 mg PO BID Qty: 60 0RF escitalopram oxalate 10 mg tablet 10 mg PO QHS Qty: 90 0RF tamsulosin 0.4 mg capsule 0.4 mg PO QHS 30 Days Qty: 30 3RF lorazepam 0.5 mg tablet 0.5 mg PO .every 6 hours MDD 2mg PRN (Reason: agitation) Qty: 20 0RF Referrals / Follow Up: Casper Do DO [Primary Care Provider] - Disposition Disposition (needs filled in before D/C Order can be placed): Hospice in Medical Facility Charges/Coding Visit Charges Inpatient E&M: 84937 Disch Hosp >30min Procedures Hospitalists Procedures: 15809 Advncd Care Plan 30 Min
== END 2023-06-10 21:54 | disposition hospice, inpatient (51) | DRG 871 ==
LOC: ED 14:58 → MS3 15:48
PROVIDERS: Admitting Provider Family Medicine; Emergency Provider Emergency Medicine; PCP Family Medicine; Visit Provider Family Medicine
DX: A41.9 Sepsis, unspecified organism (principal); E43 Unspecified severe protein-calorie malnutrition; J69.0 Pneumonitis due to inhalation of food and vomit; G93.41 Metabolic encephalopathy; J44.0 Chronic obstructive pulmonary disease with (acute) lower respiratory infection; N30.01 Acute cystitis with hematuria; G20 Parkinson's disease; F02.80 Dementia in other diseases classified elsewhere, unspecified severity, without behavioral disturbance, psychotic disturbance, mood disturbance, and anxiety; L89.309 Pressure ulcer of unspecified buttock, unspecified stage; R65.20 Severe sepsis without septic shock; I71.43 Infrarenal abdominal aortic aneurysm, without rupture; F32.A Depression, unspecified; I25.10 Atherosclerotic heart disease of native coronary artery without angina pectoris; K58.9 Irritable bowel syndrome, unspecified; F41.9 Anxiety disorder, unspecified; G89.29 Other chronic pain; Z87.891 Personal history of nicotine dependence; R13.10 Dysphagia, unspecified; N40.0 Benign prostatic hyperplasia without lower urinary tract symptoms; S31.000D Unspecified open wound of lower back and pelvis without penetration into retroperitoneum, subsequent encounter
CPT/HCPCS: 36415; 71045; 72192; 80048; 80076; 81001; 83605; 83735; 84100; 85025; 87040; 87070; 87075; 87077; 87086; 87088; 87186; 87205; 87428; 92526; 92610; 93005; 97162; 97166; 97530; 97535; 97802; 99285; J7030; J7040; J7050; A4216; J0295